=== PATIENT | female | born 1955 | race Caucasian/White ===

== ENCOUNTER → 2020-07-19 13:42 | Outpatient (BNVA) | payer OTHER, SELFPAY | PROVIDERS: PCP Physician Assistant; Visit Provider Internal Medicine ==

== ENCOUNTER 2020-09-14 09:01 | Outpatient (REF) | payer OTHER, SELFPAY ==
[2020-09-14 10:16] LABS: Hematocrit 39.1 % (37-47); Hemoglobin 13.9 g/dl (12.0-16.0); Mean Corpuscular HGB Conc 35.5 g/dl (31.0-35.0); Mean Corpuscular Hemoglobin 33.9 pg (27.0-33.0); Mean Corpuscular Volume 95.4 fL (80-98); Mean Platelet Volume 10.9 fL (9.4-12.3); Platelet Count 136 X10*3/uL (160-400); Red Cell Distribution Width 11.9 % (11.0-16.0); White Blood Count 4.2 X10*3/uL (4.8-10.8)
[2020-09-14 10:29] LABS: Estimated Average Glucose 94 mg/dL; Hemoglobin A1c % 4.9 %
[2020-09-14 10:45] LABS: Alanine Aminotransferase 31 U/L (0-31); Albumin Level 3.7 g/dL (3.5-5.0); Alkaline Phosphatase 102 U/L (39-117); Anion Gap 17 (12-20); Aspartate Amino Transferase 49 U/L (5-31); Bilirubin Total 1.1 mg/dL (0.0-1.0); Blood Urea Nitrogen 12 mg/dL (9-16); Calcium 8.3 mg/dL (8.4-10.2); Carbon Dioxide 22 mmol/L (22-29); Chloride 108 mmol/L (96-108); Cholesterol 168 mg/dL; Estimated Glomerular Filt Rate > 60; Glucose Fasting 123 mg/dL (60-99); HDL Cholesterol 41 mg/dL; LDL Cholesterol Calculated 109 mg/dl; Potassium 3.9 mmol/L (3.3-5.1); Sodium 143 mmol/L (135-145); Total Protein 6.9 g/dL (6.5-8.0); Triglycerides 94 mg/dL
[2020-09-14 11:08] LABS: Thyroid Stimulating Hormone 2.36 uIU/mL (0.32-4.0)
== END 2020-09-14 09:02 | disposition home or self-care (01) ==
LOC: HO.10HDL 09:01
PROVIDERS: Visit Provider Physician Assistant
DX: Z79.899 Other long term (current) drug therapy (principal)
CPT/HCPCS: 36415; 80053; 80061; 83036; 84443; 85027

== ENCOUNTER 2020-12-01 08:36 | Outpatient (REF) | payer OTHER, SELFPAY | END 2020-12-01 08:37 | disposition home or self-care (01) | LOC: HO.HOSX 08:36 | PROVIDERS: Visit Provider Orthopaedic Surgery | DX: Z13.89 Encounter for screening for other disorder (principal) ==

== ENCOUNTER 2021-09-20 10:58 | Outpatient (REF) | payer OTHER, SELFPAY ==
--- NOTE | ~2021-09-20 | XR_ITS ---
EXAMINATION: XR HIP, LEFT CLINICAL INFORMATION: Left hip pain COMPARISON: None TECHNIQUE: Two views of the left hip. FINDINGS: There is no fracture or dislocation. The femoral head articulates appropriately with its acetabulum. Small osteophytes noted. The left hemipelvis is intact. The bowel gas pattern is unremarkable. XR/XR hip LT min 2V IMPRESSION: Mild degenerative change of the left hip.
== END 2021-09-20 10:59 | disposition home or self-care (01) ==
LOC: HO.XRAY 10:58
PROVIDERS: PCP Physician Assistant; Visit Provider Physician Assistant
DX: M25.552 Pain in left hip (principal)
CPT/HCPCS: 73502

== ENCOUNTER 2021-10-03 12:37 | Outpatient (REF) | payer OTHER, SELFPAY ==
--- NOTE | ~2021-10-03 | CT_ITS ---
EXAMINATION: CT CHEST SCREENING CLINICAL INFORMATION: Lung screen. Current smoker with [id number] history. COMPARISON: 01/12/2020. TECHNIQUE: Multidetector volumetric CT imaging of the chest is performed without contrast using low dose technique. Additional 2D coronal and sagittal reformatted images and axial 3D maximum intensity projection (MIP) images are generated on the CT workstation. This CT examination was performed using dose optimization techniques as appropriate, variously including the following: *Automated exposure control *Adjustment of mA and/or kV according to patient size (this includes techniques or standardized protocols for targeted exams where dose is matched to indication/reason for exam; i.e. extremities or head) *Use of iterative reconstruction technique DLP: 61 mGy-cm. FINDINGS: LUNGS: Central airways are patent. There are mild changes of centrilobular emphysema seen. There are some subpleural blebs seen adjacent to the mediastinum in the right upper lobe. There is some mild central bronchial wall thickening present without evidence of bronchiectasis. No confluent parenchymal disease is identified. No suspicious lung nodules identified. MEDIASTINUM: Visualized thyroid gland unremarkable. Heart normal size. Coronary artery calcifications present. No mediastinal or hilar lymphadenopathy. No thoracic aortic aneurysm. No pericardial effusion. PLEURA: There is no pleural effusion. No pleural mass or thickening. AXILLA: No lymphadenopathy. UPPER ABDOMEN: There is cholelithiasis without evidence of acute cholecystitis. OSSEOUS STRUCTURES: No suspicious destructive bony lesions identified. Status post right shoulder surgery. CT/CT lung screening IMPRESSION: No suspicious lung nodules. Coronary artery calcifications. Cholelithiasis without evidence of acute cholecystitis. ASSESSMENT: Lung-RADS category 1: Negative RECOMMENDATION: Routine annual low-dose CT screening in 12 months.
== END 2021-10-03 12:38 | disposition home or self-care (01) ==
LOC: HO.CT 12:37
PROVIDERS: Absent Provider Internal Medicine; PCP Physician Assistant; Visit Provider Physician Assistant Medical
DX: Z12.2 Encounter for screening for malignant neoplasm of respiratory organs (principal); F17.210 Nicotine dependence, cigarettes, uncomplicated
CPT/HCPCS: 71271

== ENCOUNTER → 2021-11-07 10:57 | Outpatient (BNVA) | payer OTHER, SELFPAY | PROVIDERS: PCP Physician Assistant; Visit Provider Internal Medicine | DX: J44.9 Chronic obstructive pulmonary disease, unspecified (principal) ==

== ENCOUNTER → 2021-11-23 10:53 | Outpatient (BNVA) | payer OTHER, SELFPAY | PROVIDERS: PCP Physician Assistant; Visit Provider Orthopaedic Surgery | DX: Z13.89 Encounter for screening for other disorder (principal) ==

== ENCOUNTER 2022-08-24 11:17 | Outpatient (REF) | payer MEDICARE, SELFPAY ==
[2022-08-24 14:42] LABS: Hematocrit 42.1 % (37.0-47.0); Hemoglobin 14.4 g/dl (12.0-16.0); Mean Corpuscular HGB Conc 34.2 g/dl (31.0-35.0); Mean Corpuscular Hemoglobin 34.1 pg (27.0-33.0); Mean Corpuscular Volume 99.8 fL (80.0-98.0); Platelet Count 188 X10*3/uL (160-400); Red Blood Count 4.22 X10*6/uL (4.20-5.50); Red Cell Distribution Width 13.8 % (11.0-16.0); White Blood Count 5.8 X10*3/uL (4.8-10.8)
[2022-08-24 15:09] LABS: Alanine Aminotransferase 25 U/L (0-31); Albumin Level 3.8 g/dL (3.5-5.0); Alkaline Phosphatase 103 U/L (39-117); Anion Gap 16 (12-20); Aspartate Amino Transferase 28 U/L (5-31); Bilirubin Total 0.8 mg/dL (0.0-1.0); Blood Urea Nitrogen 13 mg/dL (9-16); Calcium 8.9 mg/dL (8.4-10.2); Carbon Dioxide 24 mmol/L (22-29); Chloride 103 mmol/L (96-108); Cholesterol 180 mg/dL; Estimated Glomerular Filt Rate 44; Glucose Fasting 136 mg/dL (60-99); HDL Cholesterol 55 mg/dL; LDL Cholesterol Calculated 107 mg/dl; Magnesium 1.8 mg/dL (1.6-2.6); Phosphorus 3.2 mg/dL (2.7-4.5); Sodium 139 mmol/L (135-145); Total Protein 7.1 g/dL (6.5-8.0); Triglycerides 92 mg/dL
[2022-08-24 15:26] LABS: TSH reflex Free T4 2.06 uIU/mL (0.32-4.0)
== END 2022-08-24 11:18 | disposition home or self-care (01) ==
LOC: HO.WFDLDS 11:17
PROVIDERS: Visit Provider Hospitalist
DX: Z00.00 Encounter for general adult medical examination without abnormal findings (principal); K21.9 Gastro-esophageal reflux disease without esophagitis; E66.3 Overweight; I10 Essential (primary) hypertension; E03.9 Hypothyroidism, unspecified
CPT/HCPCS: 36415; 80053; 80061; 83735; 84100; 84443; 85027

== ENCOUNTER → 2022-08-28 13:37 | Outpatient (BNVA) | payer MEDICARE, SELFPAY | PROVIDERS: PCP Hospitalist; Visit Provider Internal Medicine | DX: J44.9 Chronic obstructive pulmonary disease, unspecified (principal); F17.210 Nicotine dependence, cigarettes, uncomplicated | CPT/HCPCS: 99212 ==

== ENCOUNTER → 2022-10-03 13:28 | Outpatient (BNVA) | payer MEDICARE, SELFPAY | PROVIDERS: PCP Hospitalist; Visit Provider Anesthesiology | DX: M47.26 Other spondylosis with radiculopathy, lumbar region (principal); M53.3 Sacrococcygeal disorders, not elsewhere classified; M48.061 Spinal stenosis, lumbar region without neurogenic claudication; M51.36 Other intervertebral disc degeneration, lumbar region; M16.12 Unilateral primary osteoarthritis, left hip; M25.552 Pain in left hip | CPT/HCPCS: 99212 ==

== ENCOUNTER 2022-11-06 06:14 | Outpatient (REF) | payer MEDICARE, SELFPAY ==
--- NOTE | ~2022-11-06 | FL_ITS ---
EXAMINATION: XR FLUOROSCOPY WITH IMAGES CLINICAL INFORMATION: Left hip pain. COMPARISON: 09/20/2021. TECHNIQUE: Fluoroscopy Supervised By: Dr. Kendall Lee. Fluoroscopy Time: 0.2 minutes. Cumulative Dose: 4.91 mGy. DAP: 1.33 Gycm2. Images: 1. FINDINGS: A needle is seen positioned about the superior lateral left hip joint space. Some contrast is seen within the hip joint. FL/FL guidance in treatment room IMPRESSION: Intra-articular injection of the left hip for pain management procedure.
== END 2022-11-06 06:15 | disposition home or self-care (01) ==
LOC: CF 06:14
PROVIDERS: Visit Provider Anesthesiology
DX: M16.12 Unilateral primary osteoarthritis, left hip (principal); M54.16 Radiculopathy, lumbar region; M53.3 Sacrococcygeal disorders, not elsewhere classified
CPT/HCPCS: 20610

== ENCOUNTER 2022-11-16 09:26 | Outpatient (REF) | payer MEDICARE, SELFPAY ==
--- NOTE | ~2022-11-16 | XR_ITS ---
EXAMINATION: XR PELVIS CLINICAL INFORMATION: Hip pain. COMPARISON: None available. TECHNIQUE: AP view of the pelvis. FINDINGS: No fracture no fracture identified. Sacroiliac and hip joints are normal. Pubic symphysis is normal. Degenerative changes of the incidentally visualized lower lumbar spine. Unremarkable appearance of the soft tissues. XR/XR pelvis 1-2V IMPRESSION: Degenerative changes of the incidentally visualized lower lumbar spine. Otherwise unremarkable plain film examination of the pelvis.
== END 2022-11-16 09:27 | disposition home or self-care (01) ==
LOC: HO.HOSX 09:26
PROVIDERS: Visit Provider Orthopaedic Surgery
DX: M54.16 Radiculopathy, lumbar region (principal); M25.551 Pain in right hip; M25.552 Pain in left hip
CPT/HCPCS: 72170; 99212

== ENCOUNTER 2023-01-17 12:07 | Outpatient (REF) | payer MEDICARE, SELFPAY ==
--- NOTE | ~2023-01-17 | CT_ITS ---
EXAMINATION: CT CHEST SCREENING CLINICAL INFORMATION: Lung screening. COMPARISON: CT chest screening 10/03/2021. TECHNIQUE: Multidetector volumetric CT imaging of the chest is performed without contrast using low dose technique. Additional 2D coronal and sagittal reformatted images and axial 3D maximum intensity projection (MIP) images are generated on the CT workstation. This CT examination was performed using dose optimization techniques as appropriate, variously including the following: *Automated exposure control *Adjustment of mA and/or kV according to patient size (this includes techniques or standardized protocols for targeted exams where dose is matched to indication/reason for exam; i.e. extremities or head) *Use of iterative reconstruction technique DLP: 60 mGy-cm FINDINGS: LUNGS: The lungs are clear with no evidence of inflammation or nodules. MEDIASTINUM: There are mild changes of centrilobular emphysema with no acute process. The thyroid lobes are symmetric and normal. The central trachea and the bronchi are widely patent. The heart size and the great vessels are normal caliber. No pericardial effusion seen. No abnormal-sized mediastinal or hilar lymph nodes. CORONARY ARTERY CALCIFICATION: Mild coronary artery calcifications are seen. PLEURA: There is no pleural effusion. No pleural mass or thickening. AXILLA: No lymphadenopathy. UPPER ABDOMEN: Visualized liver, spleen, pancreas and bilateral adrenal glands are unremarkable. OSSEOUS STRUCTURES: Unremarkable. CT/CT lung screening IMPRESSION: Mild emphysema. No pulmonary nodules seen. ASSESSMENT: Lung-RADS category 1: Negative RECOMMENDATION: Low-dose annual CT chest.
== END 2023-01-17 12:08 | disposition home or self-care (01) ==
LOC: HO.CT 12:07
PROVIDERS: PCP Hospitalist; Visit Provider Physician Assistant Medical
DX: Z12.2 Encounter for screening for malignant neoplasm of respiratory organs (principal); F17.210 Nicotine dependence, cigarettes, uncomplicated
CPT/HCPCS: 71271

== ENCOUNTER 2023-03-05 13:14 | Outpatient (AMB) | payer MEDICARE, SELFPAY ==
[2023-03-05 13:28] VITALS: BP 114/72; PULSE 77; O2SAT 97; BMI 30.2
--- NOTE | 2023-03-05 13:28 | A.OFFVIS_ITS ---
Intake Vital Signs 03/05/23 13:28 Height 5 ft 6 in Weight 187 lb BMI 30.2 BP 114/72 Blood Pressure Location Lt brachial Position Sitting Pulse 77 Pulse Source Pulse Oximeter Pulse Oximetry (%) 97 Oxygen Delivery Method Room Air Intake Visit Reasons: copd Intake Note: pt is here for follow up and states she does have some coughing ,wheezing and short of breath. 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: No Allergies codeine Allergy (Unknown, Verified 03/05/23 13:52) Unknown Medication List - Last Reconciled 03/05/23 by Eddie Alvarenga MD albuterol sulfate 90 mcg/actuation 2 puffs PO Q4-6H PRN atenolol 50 mg PO BID 90 days bupropion HCl 200 mg PO QAM 90 days fluticasone propion-salmeterol 250-50 mcg/dose (Wixela Inhub) 1 ea PO BID fluticasone propionate 50 mcg/actuation (Flonase Allergy Relief) 2 sprays intranasal DAILY 30 days gabapentin 600 mg PO BID levothyroxine 50 mcg PO DAILY 90 days losartan-hydrochlorothiazide 100-12.5 mg 1 tab PO DAILY 90 days omeprazole 20 mg PO BID sertraline 100 mg PO DAILY Do you need a note to return to daycare/school/sports/work: No HPI copd HPI Details FARZANA IS HERE FOR HER 6 MONTHS FOLLOW-UP FOR HER COPD. BREATHING HAS REMAINED STABLE EXCEPT FOR INCREASED COUGH OFF AND ON, WITH SOME MUCUS. SHE HAS HARD TIME IN WALKING AROUND MAINLY BECAUSE OF HER BACK PAIN AND RADICULITIS. STILL SMOKES ABOUT A FEW CIGARETTES EVERY DAY. USES ADVAIR 250-51 INHALATION B.I.D., HAS HAD NO ACUTE EXACERBATION OF HER COPD. MOST OF THE CONVERSATION TODAY WAS RELATED TO HER BACK PAIN LEG PAIN AND NUMB FEELING IN THE LEG. PFSH Medical History Rhinitis Hypothyroidism Anxiety Tachycardia Cough COPD (chronic obstructive pulmonary disease) Smoker Social History Housing: House Patient Tobacco Use Status: Current everyday Tobacco user Cigarette Packs Per Day: 0 Cigarettes Per Day: 2 e-Cigarette/Vaping Use: Never Used Current occupational status: retired Current occupation: right handed, retired Review of Systems Const All systems reviewed & are unremarkable except as noted in HPI and below ENT Reports nasal congestion (mild intermittent ) Card Denies chest pain, Reports rapid heart rate and Reports dyspnea (on doing physical work ) Resp Reports cough (mild off and on ) and Reports dyspnea (on doing physical work ) GI Reports heartburn (Controlled with diet and med) Reports no additional complaints Musc Reports myalgias Skin/Breast Reports system reviewed and no additional complaints, except as documented Neuro Reports no additional complaints Psych Reports no additional complaints and Reports anxiety Physical Exam Vital Signs: Last Vital Signs Pulse 77 03/05/23 13:28 BP 114/72 03/05/23 13:28 Pulse Ox 97 03/05/23 13:28 Oxygen Delivery Method Room Air 03/05/23 13:28 BMI result Body Mass Index 30.2 Const General: healthy appearing, comfortable, no acute distress, alert and awake Orientation/consciousness: patient oriented x3 HEENT Head: Yes normal to inspection General nose exam: No nasal polyps present and No nasal discharge present Face and sinus: Yes sinuses nontender Mouth: oropharynx normal Throat: Yes posterior oropharynx normal Eyes General: appearance normal, both eyes and all related structures Neck Neck: Yes normal visual inspection, Yes no lymphadenopathy, Yes trachea midline and Yes no JVD Thyroid: Thyroid normal Chest Chest palpation & inspection: normal inspection of the chest, normal palpation of entire chest wall and no tenderness Resp Effort & Inspection: prolonged expiratory phase Auscultation: no crackles, no rhonchi, no wheezes and diminished lung sounds (With prolonged expiratory phase) Cardio Palpation: normal PMI Rate: regular rate and tachycardic Rhythm: regular rhythm Heart sounds: no gallops and no murmurs Peripheral pulses: Peripheral pulses 2+ throughout GI Palpation (GI): Soft to palpation, nontender, No hepatosplenomegaly present and no masses Auscultation: normal bowel sounds Back/Spine/Pelvis Thoracic/Lumbar Spine: thoracic and lumbar spine normal to inspection Skin General skin exam: no rashes or lesions noted Neuro General: patient oriented x3 and no focal motor deficits Cranial nerves: Yes CN's II-XII intact bilaterally Extrem General: Yes normal to inspection, Yes no clubbing, cyanosis or edema, Yes no calf tenderness and No venous stasis dermatitis Psych Appearance: grossly normal and well kempt Speech and movement: Normal speech and movement present Assessment & Plan Assessment & Plan (1) Smoker: Comment: Lifelong smoker, currently smoking only 2-5 cigarettes a day. It is difficult for her to cut it below this level. CT scan of the chest in September 2021, negative, She is in the lung screening program. Code(s): F17.200 - Nicotine dependence, unspecified, uncomplicated (2) COPD (chronic obstructive pulmonary disease): Comment: COPD is remaining stable. There is no shortness of breath or wheezing at rest. She uses Advair 250-50 1 inhalation b.i.d. but only if she has any bouts of wheezing or cough. Code(s): J44.9 - Chronic obstructive pulmonary disease, unspecified (3) Rhinitis: Comment: Chronic nasal congestion, secondary to vasomotor vs allergic rhinitis. [place] : Flonase nasal spray 2 spray each nostril daily. Code(s): J31.0 - Chronic rhinitis Coding Level of Care Code Est Pt Level 3 (11258) Diagnoses Smoker F17.200 COPD (chronic obstructive pulmonary disease) J44.9 Rhinitis J31.0
== END 2023-03-05 14:10 | disposition home or self-care (01) ==
PROVIDERS: PCP Hospitalist; Visit Provider Internal Medicine
DX: F17.200 Nicotine dependence, unspecified, uncomplicated (principal); J44.9 Chronic obstructive pulmonary disease, unspecified; J31.0 Chronic rhinitis
CPT/HCPCS: 99213

== ENCOUNTER → 2023-03-05 13:14 | Outpatient (BNVA) | payer MEDICARE, SELFPAY | PROVIDERS: PCP Hospitalist; Visit Provider Internal Medicine | DX: J44.9 Chronic obstructive pulmonary disease, unspecified (principal); J31.0 Chronic rhinitis; F17.210 Nicotine dependence, cigarettes, uncomplicated | CPT/HCPCS: 99212 ==

== ENCOUNTER 2023-06-12 11:21 | Outpatient (AMB) | payer MEDICARE, SELFPAY ==
--- NOTE | 2023-06-12 12:37 | AM.OFFWIN_ITS ---
Intake Vital Signs 06/12/23 12:49 06/12/23 13:00 Height 5 ft 6 in Weight 187 lb 2 oz BMI 30.2 BP 170/90 H 170/82 H Blood Pressure Location Lt brachial Lt brachial Position Sitting Pulse 66 Pulse Source Pulse Oximeter Pulse Oximetry (%) 98 Oxygen Delivery Method Room Air Intake Visit Reasons: Elev bp Intake Note: Patient is here today for elevated BP. 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 Required: No Rn Pain Management: Not Required per policy Accompanied by: Self / Same As Patient Allergies codeine Allergy (Unknown, Verified 06/12/23 12:49) Unknown Medication List - Last Reconciled 06/12/23 by Blank Rodriguez, MILK DRYING MACHINE OPERATOR-BC albuterol sulfate 90 mcg/actuation 2 puffs PO Q4-6H PRN atenolol 50 mg PO BID 90 days bupropion HCl 200 mg PO QAM 90 days fluticasone propion-salmeterol 250-50 mcg/dose 1 ea PO BID fluticasone propionate 50 mcg/actuation (Flonase Allergy Relief) 2 sprays intranasal DAILY 30 days gabapentin 600 mg PO BID levothyroxine 50 mcg PO DAILY 90 days losartan-hydrochlorothiazide 100-12.5 mg 1 tab PO DAILY 90 days nicotine 1 patch transdermal Q24H 28 days omeprazole 20 mg PO BID sertraline 100 mg PO DAILY Do you need a note to return to daycare/school/sports/work: No HPI HPI Comments History of Present Illness Details here today c/o HTN was monitoring at home previously but BP normalized on current meds however recently went to endovasc doc and noted SBP > 200 has a femoral blockage on L will be undergoing a stent and add'l work up since this time, has been checking BP at home log reviewed SBP 190-220 DBP 77-102 denies cardiac or neuro complaints PFSH Medical History Rhinitis Hypothyroidism Anxiety Tachycardia Cough COPD (chronic obstructive pulmonary disease) Smoker Social History Housing: House Patient Tobacco Use Status: Current everyday Tobacco user Cigarette Packs Per Day: 0 Cigarettes Per Day: 2 e-Cigarette/Vaping Use: Never Used Current occupational status: retired Current occupation: right handed, retired Review of Systems Const All systems reviewed & are unremarkable except as noted in HPI and below Physical Exam Vital Signs: Last Vital Signs Pulse 66 06/12/23 12:49 BP 170/90 H 06/12/23 12:49 Pulse Ox 98 06/12/23 12:49 Oxygen Delivery Method Room Air 06/12/23 12:49 BMI result Body Mass Index 30.2 Const Other: awake alert NAD MMM RRR LS with ins/exp wheeze throughout, diminished Assessment & Plan Assessment & Plan (1) HTN (hypertension): Code(s): I10 - Essential (primary) hypertension Qualifiers: Hypertension type: unspecified Qualified Code(s): I10 - Essential (primary) hypertension (2) CKD (chronic kidney disease) stage 3, GFR 30-59 ml/min: Comment: 08/2022 gfr 44 cr 1.23 Code(s): N18.30 - Chronic kidney disease, stage 3 unspecified Qualifiers: Chronic kidney disease stage 3 subtype: stage 3b (GFR 30-44) Qualified Code(s): N18.32 - Chronic kidney disease, stage 3b Plan: . Plan . Orders: Orders Comprehensive Met. Panel 06/12/23 I10 - Essential (primary) hypertension, N18.30 - Chronic kidney disease, stage 3 unspecified Medications: New amlodipine 5 mg PO DAILY 30 days 30 tabs 1RF Patient Instructions: given elevated bp and last labs 08/2022, will start CCB norvasc 5 mg QD. She should cont all of her other meds as ordered and get up to date labs to look at renal function and lytes. Aware norvasc should be taken at HS and may cause edema. Edu on what to do if this occurs. Monitor BP QD and keep log. RTO as directed to f/u on labs and BP. Coding Level of Care Code Est Pt Level 4 (33053) Diagnoses Hypertension, unspecified type I10 Hypertension type: unspecified Stage 3b chronic kidney disease N18.32 Chronic kidney disease stage 3 subtype: stage 3b (GFR 30-44)
[2023-06-12 12:49] VITALS: BP 170/90; PULSE 66; O2SAT 98; BMI 30.2
[2023-06-12 13:00] VITALS: BP 170/82
== END 2023-06-12 13:46 | disposition home or self-care (01) ==
PROVIDERS: PCP Hospitalist; Visit Provider Nurse Practitioner Family
DX: I12.9 Hypertensive chronic kidney disease with stage 1 through stage 4 chronic kidney disease, or unspecified chronic kidney disease (principal); N18.32 Chronic kidney disease, stage 3b
CPT/HCPCS: 99214

== ENCOUNTER 2023-07-11 12:07 | Outpatient (REF) | payer MEDICARE, SELFPAY ==
[2023-07-11 13:55] LABS: Alanine Aminotransferase 19 U/L (0-31); Albumin Level 3.9 g/dL (3.5-5.0); Alkaline Phosphatase 100 U/L (39-117); Anion Gap 15 (12-20); Aspartate Amino Transferase 26 U/L (5-31); Bilirubin Total 0.6 mg/dL (0.0-1.0); Blood Urea Nitrogen 21 mg/dL (9-16); Calcium 9.2 mg/dL (8.4-10.2); Carbon Dioxide 27 mmol/L (22-29); Chloride 97 mmol/L (96-108); Estimated Glomerular Filt Rate 32; Glucose Random 126 mg/dL (60-115); Sodium 135 mmol/L (135-145); Total Protein 7.4 g/dL (6.5-8.0)
== END 2023-07-11 12:08 | disposition home or self-care (01) ==
LOC: HO.LAB 12:07
PROVIDERS: PCP Nurse Practitioner Family; Referring Provider Radiology Vascular & Interventional Radiology; Visit Provider Nurse Practitioner Family
DX: I10 Essential (primary) hypertension (principal); N18.30 Chronic kidney disease, stage 3 unspecified
CPT/HCPCS: 36415; 80053

== ENCOUNTER 2023-07-16 12:23 | Outpatient (AMB) | payer MEDICARE, SELFPAY ==
--- NOTE | 2023-07-16 10:19 | A.OFFPC_ITS ---
Vital Signs 07/16/23 12:33 Height 5 ft 6 in Weight 186 lb BMI 30.0 BP 144/72 H Blood Pressure Location Rt brachial Pulse 72 Pulse Source Pulse Oximeter Pulse Oximetry (%) 99 Oxygen Delivery Method Room Air Intake Visit Reasons: MISAEL from [facility] labs and HTN Intake Note: Patient is here as a transfer of care, and would like blood work done for [facility]. Patient would like lower right leg looked at, she has a spot. Allergies codeine Allergy (Unknown, Verified 07/16/23 12:57) Unknown Medication List - Last Reconciled 07/16/23 by Blank Rodriguez, TRANSFORMATION CONSULTANT-BC albuterol sulfate 90 mcg/actuation 2 puffs PO Q4-6H PRN amlodipine 5 mg PO DAILY 30 days atenolol 50 mg PO BID 90 days bupropion HCl 200 mg PO QAM 90 days fluticasone propion-salmeterol 250-50 mcg/dose 1 ea PO BID fluticasone propionate 50 mcg/actuation (Flonase Allergy Relief) 2 sprays intranasal DAILY 30 days gabapentin 600 mg PO BID levothyroxine 50 mcg PO DAILY 90 days losartan-hydrochlorothiazide 100-12.5 mg 1 tab PO DAILY 90 days nicotine 1 patch transdermal Q24H 28 days omeprazole 20 mg PO BID sertraline 100 mg PO DAILY Tobacco use date assessed: 07/16/23 Fall risk assessment: No Falls in past year Last assessed Fall Risk: 07/16/23 Dental Screening Dental Screen Date: 07/16/23 Did you have a dental visit in the last 12 months?: Yes Did you have a dental problem in the last 6 months where you did not have access to dental care?: No Was dental information given to patient?: Patient has dentist HPI HPI Comments History of Present Illness Details Here today to follow-up on hypertension & to review labs ordered at last visit. At last visit Norvasc was added to her regimen. Advised to take blood pressure daily and keep a log. Labs from 07/11/2023 show a BUN of 21 creatinine of 1.63 GFR of 32. Normal lytes, normal LFTs. Home blood pressure log reviewed. SBP range 142 - 204 space DBP range 77 to 102. Stent to be placed L femoral on 07/22/[address] Taj [facility]. requesting most recent labs to be faxed. We will have the office after that today. Patient makes a mention potential stent to be placed in the right leg as well. However she has not sure. Also wonders about a skin lesion that she has on her right lower leg. Reports it has been there for a long time and just wonders if anything needs to be done about it. PFSH Medical History Rhinitis Hypothyroidism Anxiety Tachycardia Cough COPD (chronic obstructive pulmonary disease) Smoker Social History Housing: House Patient Tobacco Use Status: Current everyday Tobacco user Cigarette Packs Per Day: 0 Cigarettes Per Day: 2 e-Cigarette/Vaping Use: Never Used Current occupational status: retired Current occupation: right handed, retired Cognitive needs: No Hearing needs: No Vision needs: Yes (wears glasses to drive.) Questionnaire PHQ-9 Over the last 2 weeks, how often have you been bothered by any of the following problems? 1. Little interest or pleasure in doing things: not at all 2. Feeling down, depressed, or hopeless: not at all 3. Trouble falling or staying asleep, or sleeping too much: not at all 4. Feeling tired or having little energy: not at all 5. Poor appetite or overeating: not at all 6. Feeling bad about yourself - or that you are a failure or have let yourself or your family down: not at all 7. Trouble concentrating on things, such as reading the newspaper or watching television: not at all 8. Moving or speaking so slowly that other people could have noticed. Or the opposite - being so fidgety or restless that you have been moving around a lot more than usual: not at all 9. Thoughts that you would be better off or of hurting yourself in some way: not at all Total score: 0 Source: Developed by Drs. Jayy Nguyễn, Stephy Coyle, Luis Walker and colleagues, with an educational tino from [employer]. Thrive Questionnaire Date Thrive assessed: 07/16/23 I am a: Patient What is your living situation today?: I have a steady place to live Within the past 12 months, did the food you bought not last and you didn't have the money to get more?: Never true Within the past 12 months, did you worry whether your food would run out before you got money to buy more?: Never true Do you have trouble paying for medicines?: No Do you have trouble getting transportation to medical appointments?: No Do you have trouble paying your heating and electricity bill?: No Do you have trouble taking care of your child, family member or friend?: No Do you have trouble with day-to-day activities such as bathing, preparing meals, shopping, managing finances, etc.?: No Are you currently unemployed and looking for a job?: No Are you interested in more education?: No THRIVE Score: 0 AUDIT C Alcohol Use Questionnaire (AUDIT-C) 1. How often do you have a drink containing alcohol?: 4 or more times a week 2. How many drinks containing alcohol do you have on a typical day when you are drinking?: 1 or 2 3. How often do you have six or more drinks on one occasion?: Never Total Score: 4 DRE-7 AMB Questionnaire DRE-7 Date DRE - 7 assessed: 07/16/23 Feeling nervous, anxious, or on edge: 0 = Not at all Not being able to stop or control worryin = Not at all Worrying too much about different things: 0 = Not at all Trouble relaxin = Not at all Being so restless that it is hard to sit still: 0 = Not at all Becoming easily annoyed or irritable: 0 = Not at all Feeling afraid as if something awful might happen: 0 = Not at all Total DRE-7 score (0-4 normal; 5-9 mild; 10-14 moderate; 15-21 severe): 0 Source: Developed by Drs. Jayy Nguyễn, Stephy Coyle, Luis Walker and colleagues, with an educational tino from [employer]. Review of Systems Const All systems reviewed & are unremarkable except as noted in HPI and below Physical exam (Primary Care) BMI result Body Mass Index 30.0 Tobacco/Smoking Status: Tobacco use Status Tobacco use date assessed 07/16/23 07/16/23 12:39 Patient Tobacco Use Status Current everyday Tobacco 07/16/23 10:19 e-Cigarette/Vaping Use Never Used 07/16/23 10:19 Const Other: awake alert NAD MMM RRR LS diminished Bilateral lower extremities hairless, decreased pedal pulse. Right anterior lower leg is a cutaneous horn. Assessment and Plan Assessment & Plan (1) CKD (chronic kidney disease) stage 3, GFR 30-59 ml/min: Comment: 08/2022 gfr 44 cr 1.23; 07/11/23 Bun 21 cr 1.63 egfr 32 stable avoid nephrotoxic agents. Code(s): N18.30 - Chronic kidney disease, stage 3 unspecified Qualifiers: Chronic kidney disease stage 3 subtype: stage 3b (GFR 30-44) Qualified Code(s): N18.32 - Chronic kidney disease, stage 3b (2) HTN (hypertension): Code(s): I10 - Essential (primary) hypertension Qualifiers: Hypertension type: unspecified Qualified Code(s): I10 - Essential (primary) hypertension Plan: Improved with addition of Norvasc 5 mg. However readings still above goal. Therefore we will increase amlodipine dose 7.5 mg p.o. q.h.s.. She should continue to monitor blood pressure and bring log with her to future appointments (3) Skin lesion of lower extremity: Comment: Right lower extremity, cutaneous horn Code(s): L98.9 - Disorder of the skin and subcutaneous tissue, unspecified Plan: Refer to dermatology for evaluation and treatment advised him to pick her pull the lesion (4) Atherosclerosis of lower extremity: Comment: [facility] BUSH Code(s): I70.209 - Unspecified atherosclerosis of sh[place]nee arteries of extremities, unspecified extremity Qualifiers: Peripheral atherosclerosis artery type: shawnee artery Peripheral atherosclerosis clinical manifestation: with intermittent claudication Laterality: bilateral Qualified Code(s): I70.213 - Atherosclerosis of sh[place]nee arteries of extremities with intermittent claudication, bilateral legs Plan: Will be undergoing stent placement 07/22/23 to Left Femoral asked staff to fax 07/11/23 labs to office and to have staff call and let her know if she is having bilat stents or just left side i will see her back in august for routine f/u Plan Total time spent caring for the patient today was 60 minutes. This includes eric e spent before the visit reviewing the chart, time spent during the visit, and time spent after the visit on documentation Orders: Referrals Dermatology Referral L98.9 - Disorder of the skin and subcutaneous tissue, unspecified Medications: Changed From amlodipine 5 mg PO DAILY 30 days 30 tabs 1RF To amlodipine 7.5 mg (1.5 x 5 mg) PO DAILY 90 days 135 tabs 0RF Refilled amlodipine 5 mg PO DAILY 30 days 30 tabs 1RF Coding Level of Care Code Est Pt Level 5 (07575) Diagnoses Stage 3b chronic kidney disease N18.32 Chronic kidney disease stage 3 subtype: stage 3b (GFR 30-44) Hypertension, unspecified type I10 Hypertension type: unspecified Skin lesion of lower extremity L98.9 Atherosclerosis of shawnee artery of both lower extremities with intermittent cl audication I70.213 Peripheral atherosclerosis artery type: shawnee artery Peripheral atherosclerosis clinical manifestation: with intermittent claudication Laterality: bilateral
[2023-07-16 12:33] VITALS: BP 144/72; PULSE 72; O2SAT 99
== END 2023-07-16 13:14 | disposition home or self-care (01) ==
PROVIDERS: PCP Hospitalist; Visit Provider Nurse Practitioner Family
DX: I12.9 Hypertensive chronic kidney disease with stage 1 through stage 4 chronic kidney disease, or unspecified chronic kidney disease (principal); N18.32 Chronic kidney disease, stage 3b; I70.213 Atherosclerosis of native arteries of extremities with intermittent claudication, bilateral legs; L98.9 Disorder of the skin and subcutaneous tissue, unspecified
CPT/HCPCS: 99215

== ENCOUNTER 2023-08-27 12:23 | Outpatient (AMB) | payer MEDICARE, SELFPAY ==
--- NOTE | 2023-08-27 12:32 | MHC.PC.OV ---
Vital Signs 08/27/23 12:50 Height 5 ft 6 in Weight 187 lb BMI 30.2 BP 172/70 H Blood Pressure Location Lt brachial Position Sitting Respiration 15 Pulse 64 Pulse Source Pulse Oximeter Temp 97.0 F Temp Source Temporal Artery Scan Pulse Oximetry (%) 100 Oxygen Delivery Method Room Air Intake Visit Reasons: Chronic condition mgmt Intake Note: Patient is here fro chronic condition management. Patient reports her blood pressure has been elevated. Patient reports she brought in a BP log from home. Dental Technologist Required: No Accompanied by: Self / Same As Patient Allergies codeine Allergy (Unknown, Verified 08/27/23 13:07) Unknown Medication List - Last Reconciled 08/27/23 by Blank Rodriguez, BULK MAIL TECHNICIAN- albuterol sulfate 90 mcg/actuation 2 puffs PO Q4-6H PRN amlodipine 7.5 mg (1.5 x 5 mg) PO DAILY 90 days atenolol 50 mg PO BID 90 days bupropion HCl 200 mg PO QAM fluticasone propion-salmeterol 250-50 mcg/dose 1 ea PO BID fluticasone propionate 50 mcg/actuation (Flonase Allergy Relief) 2 sprays intranasal DAILY 30 days gabapentin 600 mg PO BID levothyroxine 50 mcg PO DAILY losartan-hydrochlorothiazide 100-12.5 mg 1 tab PO DAILY nicotine 1 patch transdermal Q24H 28 days omeprazole 20 mg PO BID rivaroxaban (Xarelto) 2.5 mg PO BID sertraline 100 mg PO DAILY Tobacco use date assessed: 07/16/23 HPI HPI Comments History of Present Illness Details 68-year-old female with CKD 3 B, hypertension, arthrosclerosis bilat lower extremities with claudication,CAD, severe plaque within the abdominal aorta beginning at the level of the SMA extending across the origin the left main renal artery with severe atrophy of the left kidney, impaired fasting glucose, COPD, GERD, hypothyroidism, current smoker, DRE, MDD, hemochromatosis, multi joint osteoarthritis, allergic rhinitis Status post appendectomy, right shoulder rotator cuff repair 2016, 07/2023 stenting of the mid abdominal aorta and both common iliac arteries as well as the left external iliac artery with arthrectomy and angioplasty of the left common femoral artery 08/09/2021 Dr Ruy Mooney [facility] Vascular Pulmonology next appt in 1 week Rheumatology Orthopedics Pain management Health maintenance Colonoscopy 2016 declined. Mammogram declined DEXA reports done once, declined further screening. Lung cancer screening program CT scan September 2021, 12/2022 Eyes reports recent eye exam done and report WNL Here today to f/u on chronic conditions, listed above. Since last visit underwent vascular procedures, next appt is Saturday. Now Xarelto and ASA. She has not currently on a statin. She is okay with starting BP cont to be high. Home log reviewed. not sleeping. takes aleve pm. worried about taking this w/ aleve. Use Ativan sparingly in the past. aware of L renal atrophy. Has not smoked in 1 week. Started on 21mcg/patch. Reports she used to get phlebotomy done for her hemochromatosis. However she did syncopized during 1 of these and therefore declined to follow-up. She is willing to have further labs managed by myself. 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 Arthritis of left hip Disc degeneration, lumbar Lumbar facet arthropathy Stenosis, spinal, lumbar Sacroiliac joint pain Lumbar radicular pain Rhinitis Hypothyroidism Anxiety Tachycardia Cough COPD (chronic obstructive pulmonary disease) Smoker Surgical History (Updated 08/27/23 @ 12:54 by Ashlyn Simon CMA) No pertinent past surgical history Social History (Updated 08/27/23 @ 12:56 by Ashlyn Simon CMA) Household Members: Children Household Members Other:: daughter Housing: House Are you a primary acute care physical therapist to a significant other at home: No Do you presently have visiting nurse or other home services: No 75 years or older and lives alone: No Alcohol intake: current Alcohol intake frequency: holidays/special occasions only Alcohol type: beer Patient Tobacco Use Status: Former Tobacco user Tobacco use type: Cigarette Cigarette Packs Per Day: 0 Cigarettes Per Day: 2 e-Cigarette/Vaping Use: Never Used Current occupational status: retired Current occupation: right handed, retired Sexual orientation: Unable to collect Gender identity: Unable to collect Cognitive needs: No Hearing needs: No Vision needs: Yes (wears glasses to drive.) Questionnaire Thrive Questionnaire Date Thrive assessed: 07/16/23 DRE-7 AMB Questionnaire DRE-7 Date DRE - 7 assessed: 07/16/23 Source: Developed by Drs. Jayy L. Stephy Nguyễn, Luis Walker and colleagues, with an educational tino from [employer]. Physical exam (Primary Care) Vital Signs: Last Vital Signs Temp 97.0 F 08/27/23 12:50 Pulse 64 08/27/23 12:50 Resp 15 08/27/23 12:50 BP 172/70 H 08/27/23 12:50 Pulse Ox 100 08/27/23 12:50 Oxygen Delivery Method Room Air 08/27/23 12:50 BMI result Body Mass Index 30.2 BMI Assessment/Plan discussion: High BMI High, discussed plan: lifestyle Tobacco/Smoking Status: Tobacco use Status Tobacco use date assessed 07/16/23 08/27/23 12:32 Patient Tobacco Use Status Former Tobacco user 08/27/23 12:56 Tobacco use type Cigarette 08/27/23 12:56 e-Cigarette/Vaping Use Never Used 08/27/23 12:56 Are you ready to quit: No Tobacco cessation counseling provided: Yes Items discussed: Other Relapse Prevention: discussed the importance of a supportive environment, discussed extending NRT, discussed negative mood or depression after quitting, weight gain after smoking is common and discussed dietary, exercise and/or lifestyle changes Number of minutes spent counselin CPT code: 18497 - 4-10 Minutes Thrive Assessment: Date of Thrive Assessment Date Thrive assessed 07/16/23 08/27/23 12:32 Advance Care Planning discussion: Exists, not on file Date of discussion: 08/27/23 Const Other: awake alert NAD MMM RRR LS diminished Bilateral lower extremities hairless, decreased pedal pulse. Right anterior lower leg is a cutaneous horn. Assessment and Plan Assessment & Plan (1) CAD (coronary artery disease), [place] coronary artery: Comment: on ASA. New RX for rosuvastatin 10mg prescribed today. Repeat lipid panel due 09/2023. Smoking cessation Code(s): I25.10 - Atherosclerotic heart disease of [place] coronary artery without angina pectoris Qualifiers: [place] vs. transplanted heart: wainwright heart Associated angina: without angina Qualified Code(s): I25.10 - Atherosclerotic heart disease of [place] coronary artery without angina pectoris (2) Hemochromatosis: Comment: Was active with Hematology in the past for phlebotomy. Unfortunately she syncopized during the last 1. And has refused to go back since. We will check labs in September of 2023 Code(s): E83.119 - Hemochromatosis, unspecified Qualifiers: Hemochromatosis type: other hemochromatosis Qualified Code(s): E83.118 - Other hemochromatosis (3) MDD (major depressive disorder), recurrent episode: Comment: Currently on sertraline associated symptoms include insomnia. Was managed with p.r.n. Ativan in the past. Education about the [place] criteria given today. She is willing to entertain clonidine which she will be used to help control her blood pressure until hopefully induce sleep. I will follow up with her in 1-2 weeks to see if this is working for her blood pressure as well as her insomnia Code(s): F33.9 - Major depressive disorder, recurrent, unspecified Qualifiers: Major depression episode severity: mild Qualified Code(s): F33.0 - Major depressive disorder, recurrent, mild (4) CKD (chronic kidney disease) stage 3, GFR 30-59 ml/min: Comment: 08/2022 gfr 44 cr 1.23; 07/11/23 Bun 21 cr 1.63 egfr 32 stable avoid nephrotoxic agents. Atrophic left kidney noted on imaging July 2023 done by vascular Code(s): N18.30 - Chronic kidney disease, stage 3 unspecified Qualifiers: Chronic kidney disease stage 3 subtype: stage 3b (GFR 30-44) Qualified Code(s): N18.32 - Chronic kidney disease, stage 3b (5) COPD (chronic obstructive pulmonary disease): Comment: COPD is remaining stable. There is no shortness of breath or wheezing at rest. She uses Advair 250-50 1 inhalation b.i.d. but only if she has any bouts of wheezing or cough. Managed by pulmonology Code(s): J44.9 - Chronic obstructive pulmonary disease, unspecified Qualifiers: COPD type: emphysema Emphysema type: panlobular Qualified Code(s): J43.1 - Panlobular emphysema (6) Smoker: Comment: Lifelong smoker. Stopped smoking 1 week ago. Using nicotine replacement patch. Applauded her efforts. CT scan of the chest in September 2021, negative, She is in the lung screening program. Code(s): F17.200 - Nicotine dependence, unspecified, uncomplicated (7) HTN (hypertension): Comment: Blood pressure remains above goal on amlodipine 7.5 mg daily, atenolol 50 mg twice per day, losartan-hydrochlorothiazide 100-12.5 mg p.o. daily. The plan will be to start her on clonidine 0.1 mg at bedtime to see if this family helps her blood pressure but also helps her complaints of insomnia. I have advised her to continue to keep a blood pressure log which was reviewed today and shows consistent readings greater than 150 systolic. Bring this log with her to the next appointment which should be scheduled on 1-2 weeks we will titrate the clonidine if she is tolerating this. 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 While every effort has been made to ensure accuracy in tactical/mobile watch officer, still errors may have been included Sometimes, these errors may affect the content or meaning of the given sentence . Total time spent caring for the patient today was 60 minutes. This includes time spent before the visit reviewing the chart, time spent during the visit, and time spent after the visit on documentation Medications: New clonidine HCl 0.1 mg PO BEDTIME 30 tabs 0RF aspirin (Adult Low Dose Aspirin) 81 mg PO DAILY 30 tabs 0RF rosuvastatin 10 mg PO DAILY 30 tabs 3RF Patient Instructions: No NSAIDS Review Declined Pap Smear: 08/27/23 Patient declined Colonoscopy: 08/27/23 Coding Level of Care Code Est Pt Level 5 (05703) Diagnoses Coronary artery disease involving wain[place] coronary artery of w[place] heart without angina pectoris I25.10 [place] vs. 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
[2023-08-27 12:50] VITALS: BP 172/70; PULSE 64; RESP 15; TEMP 36.1; O2SAT 100; BMI 30.2
== END 2023-08-27 13:46 | disposition home or self-care (01) ==
PROVIDERS: PCP Nurse Practitioner Family; Visit Provider Nurse Practitioner Family
DX: I12.9 Hypertensive chronic kidney disease with stage 1 through stage 4 chronic kidney disease, or unspecified chronic kidney disease (principal); F33.0 Major depressive disorder, recurrent, mild; N18.32 Chronic kidney disease, stage 3b; J43.1 Panlobular emphysema; I70.203 Unspecified atherosclerosis of native arteries of extremities, bilateral legs; I25.10 Atherosclerotic heart disease of native coronary artery without angina pectoris; E83.118 Other hemochromatosis; F17.200 Nicotine dependence, unspecified, uncomplicated; Z00.00 Encounter for general adult medical examination without abnormal findings
CPT/HCPCS: 1123F; 99215

== ENCOUNTER 2023-09-03 13:02 | Outpatient (AMB) | payer MEDICARE, SELFPAY ==
--- NOTE | 2023-09-03 13:11 | MHC.OFFVIS ---
Intake Vital Signs 09/03/23 13:12 Height 5 ft 6 in BP 110/82 Blood Pressure Location Lt brachial Position Sitting Pulse 70 Pulse Source Pulse Oximeter Pulse Oximetry (%) 100 Oxygen Delivery Method Room Air Intake Visit Reasons: copd Intake Note: pt is here for follow up and states her breathing is doing good, had major vascular surgery. and is feeling better. Superintendent Circus Required: No Allergies codeine Allergy (Unknown, Verified 09/03/23 13:31) Unknown Medication List - Last Reconciled 09/03/23 by Eddie Alvarenga MD albuterol sulfate 90 mcg/actuation 2 puffs PO Q4-6H PRN amlodipine 7.5 mg (1.5 x 5 mg) PO DAILY 90 days aspirin (Adult Low Dose Aspirin) 81 mg PO DAILY atenolol 50 mg PO BID 90 days bupropion HCl 200 mg PO QAM clonidine HCl 0.1 mg PO BEDTIME fluticasone propion-salmeterol 250-50 mcg/dose 1 ea PO BID fluticasone propionate 50 mcg/actuation (Flonase Allergy Relief) 2 sprays intranasal DAILY 30 days gabapentin 600 mg PO BID levothyroxine 50 mcg PO DAILY losartan-hydrochlorothiazide 100-12.5 mg 1 tab PO DAILY nicotine 1 patch transdermal Q24H 28 days omeprazole 20 mg PO BID rivaroxaban (Xarelto) 2.5 mg PO BID rosuvastatin 10 mg PO DAILY sertraline 100 mg PO DAILY Do you need a note to return to daycare/school/sports/work: No HPI copd HPI Details Myrtle is 68 years old female a lifelong smoker, who has finally quit smoking since a few months ago and already feeling. much better She has very little cough, no attacks of wheezing, she can walk a few blocks without getting short of breath. Now she is realizing that it was worth quitting smoking. She has had back. Surgery for advanced degenerative arthritis of the spine In July of this year she underwent endovascular surgery and had a stent placed in the descending aorta and also in both iliac arteries. She does not have any intermittent claudication anymore and she can walk better. Now she plans to start walking daily. 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 Arthritis of left hip Disc degeneration, lumbar Lumbar facet arthropathy Stenosis, spinal, lumbar Sacroiliac joint pain Lumbar radicular pain Rhinitis Hypothyroidism Anxiety Tachycardia Cough COPD (chronic obstructive pulmonary disease) Smoker Surgical History No pertinent past surgical history Social History Household Members: Children Household Members Other:: daughter Housing: House Are you a primary transitional care liaison to a significant other at home: No Do you presently have visiting nurse or other home services: No 75 years or older and lives alone: No Alcohol intake: current Alcohol intake frequency: holidays/special occasions only Alcohol type: beer Patient Tobacco Use Status: Former Tobacco user Tobacco use type: Cigarette Cigarette Packs Per Day: 0 Cigarettes Per Day: 2 e-Cigarette/Vaping Use: Never Used Current occupational status: retired Current occupation: right handed, retired Sexual orientation: Unable to collect Gender identity: Unable to collect Cognitive needs: No Hearing needs: No Vision needs: Yes (wears glasses to drive.) Review of Systems Const All systems reviewed & are unremarkable except as noted in HPI and below ENT Reports nasal congestion (mild intermittent ) Card Denies chest pain, Reports rapid heart rate and Reports dyspnea (on doing physical work ) Resp Reports cough (mild off and on ) and Reports dyspnea (on doing physical work ) GI Reports heartburn (Controlled with diet and med) Reports no additional complaints Musc Reports myalgias Skin/Breast Reports system reviewed and no additional complaints, except as documented Neuro Reports no additional complaints Psych Reports no additional complaints and Reports anxiety Physical Exam Vital Signs: Last Vital Signs Pulse 70 09/03/23 13:12 BP 110/82 09/03/23 13:12 Pulse Ox 100 09/03/23 13:12 Oxygen Delivery Method Room Air 09/03/23 13:12 Const General: healthy appearing, comfortable, no acute distress, alert and awake Orientation/consciousness: patient oriented x3 HEENT Head: Yes normal to inspection General nose exam: No nasal polyps present and No nasal discharge present Face and sinus: Yes sinuses nontender Mouth: oropharynx normal Throat: Yes posterior oropharynx normal Eyes General: appearance normal, both eyes and all related structures Neck Neck: Yes normal visual inspection, Yes no lymphadenopathy, Yes trachea midline and Yes no JVD Thyroid: Thyroid normal Chest Chest palpation & inspection: normal inspection of the chest, normal palpation of entire chest wall and no tenderness Resp Effort & Inspection: prolonged expiratory phase Auscultation: no crackles, no rhonchi, no wheezes and diminished lung sounds (With prolonged expiratory phase) Cardio Palpation: normal PMI Rate: regular rate and tachycardic Rhythm: regular rhythm Heart sounds: no gallops and no murmurs Peripheral pulses: Peripheral pulses 2+ throughout GI Palpation (GI): Soft to palpation, nontender, No hepatosplenomegaly present and no masses Auscultation: normal bowel sounds Back/Spine/Pelvis Thoracic/Lumbar Spine: thoracic and lumbar spine normal to inspection Skin General skin exam: no rashes or lesions noted Neuro General: patient oriented x3 and no focal motor deficits Cranial nerves: Yes CN's II-XII intact bilaterally Extrem General: Yes normal to inspection, Yes no clubbing, cyanosis or edema, Yes no calf tenderness and No venous stasis dermatitis Psych Appearance: grossly normal and well kempt Speech and movement: Normal speech and movement present Assessment & Plan Assessment & Plan (1) Smoker: Comment: Lifelong smoker. Stopped smoking since last year, and already feeling better. CT scan of the chest in September 2021, negative, She is in the lung screening program. Code(s): F17.200 - Nicotine dependence, unspecified, uncomplicated Plan: Commended for quitting smoking completely and for ever. (2) COPD (chronic obstructive pulmonary disease): Comment: COPD is remaining stable. There is no shortness of breath or wheezing at rest. Breathing status is much improved since she quit smoking . Code(s): J44.9 - Chronic obstructive pulmonary disease, unspecified Qualifiers: COPD type: emphysema Emphysema type: panlobular Qualified Code(s): J43.1 - Panlobular emphysema Plan: Continue Advair 250-51 inhalation b.i.d.. And use albuterol HFA only p.r.n. for sustained cough wheezing or shortness of breath. (3) Cough: Comment: Smoker's cough, and also associated with COPD, mild , does not need script for any cough medicine. Code(s): R05 - Cough Plan: She had history of frequent, cough for long time this was definitely related to smoking. Now that she has quit smoking , cough is almost gone Coding Level of Care Code Est Pt Level 3 (40652) Diagnoses Smoker F17.200 Panlobular emphysema J43.1 COPD type: emphysema Emphysema type: panlobular Cough R05
[2023-09-03 13:12] VITALS: BP 110/82; PULSE 70; O2SAT 100
== END 2023-09-03 13:33 | disposition home or self-care (01) ==
PROVIDERS: PCP Hospitalist; Visit Provider Internal Medicine
DX: F17.200 Nicotine dependence, unspecified, uncomplicated (principal); J43.1 Panlobular emphysema; R05.9 Cough, unspecified
CPT/HCPCS: 99213

== ENCOUNTER → 2023-09-03 13:02 | Outpatient (BNVA) | payer MEDICARE, SELFPAY | PROVIDERS: PCP Hospitalist; Visit Provider Internal Medicine | DX: J43.1 Panlobular emphysema (principal); R05.9 Cough, unspecified; F17.200 Nicotine dependence, unspecified, uncomplicated | CPT/HCPCS: 99212 ==

== ENCOUNTER 2023-09-18 12:19 | Outpatient (AMB) | payer MEDICARE, SELFPAY ==
--- NOTE | 2023-09-18 12:25 | A.OFFPC_ITS ---
Vital Signs 09/18/23 12:28 09/18/23 12:49 Height 5 ft 6 in Weight 180 lb BMI 29.0 BP 190/80 H 164/76 H Blood Pressure Location Lt brachial Lt brachial Position Sitting Left Lateral Respiration 14 Pulse 73 Pulse Source Pulse Oximeter Temp 98.4 F Temp Source Temporal Artery Scan Pulse Oximetry (%) 96 Oxygen Delivery Method Room Air Intake Visit Reasons: fu HTN, Insomnia start statin,clonidine Intake Note: Patient is here to follow up for hypertension and insomnia. 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- albuterol sulfate 90 mcg/actuation 2 puffs PO Q4-6H PRN amlodipine 7.5 mg (1.5 x 5 mg) PO DAILY 90 days aspirin (Adult Low Dose Aspirin) 81 mg PO DAILY atenolol 50 mg PO BID 90 days bupropion HCl 200 mg PO QAM clonidine HCl 0.1 mg PO BEDTIME fluticasone propion-salmeterol 250-50 mcg/dose 1 ea PO BID fluticasone propionate 50 mcg/actuation (Flonase Allergy Relief) 2 sprays intranasal DAILY 30 days gabapentin 600 mg PO BID levothyroxine 50 mcg PO DAILY losartan-hydrochlorothiazide 100-12.5 mg 1 tab PO DAILY nicotine 1 patch transdermal Q24H 28 days omeprazole 20 mg PO BID rivaroxaban (Xarelto) 2.5 mg PO BID rosuvastatin 10 mg PO DAILY sertraline 100 mg PO DAILY Tobacco use date assessed: 07/16/23 HPI HPI Comments History of Present Illness Details 68-year-old female with CKD 3 B, hyperte nsion, arthrosclerosis bilat lower extremities with claudication,CAD, severe plaque within the abdominal aorta beginning at the level of the SMA extending across the origin the left main renal artery with severe atrophy of the left kidney, impaired fasting glucose, COPD, GERD, hypothyroidism, current smoker, DRE, MDD, hemochromatosis, multi joint osteoarthritis, allergic rhinitis Status post appendectomy, right shoulder rotator cuff repair 2016, 07/2023 stenting of the mid abdominal aorta and both common iliac arteries as well as the left external iliac artery with arthrectomy and angioplasty of the left common femoral artery 08/09/2021 Dr Ruy Mooney [facility] Vascular Pulmonology next appt in 1 week Rheumatology Orthopedics Pain management Health maintenance Colonoscopy 2017 declined. Mammogram declined DEXA reports done once, declined further screening. Lung cancer screening program CT scan September 2021, 12/2022 Eyes reports recent eye exam done and report WNL Here today to f/u on insomnia and HTN Since last OV, BP log reviewed SBP range 133-211 DBP range 61-92 Has been taking clonidine 0.1mg at HS this has not helped w/ BP or sleep. Cont to be smoke free for 1 month. Not using patch! 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 Arthritis of left hip Disc degeneration, lumbar Lumbar facet arthropathy Stenosis, spinal, lumbar Sacroiliac joint pain Lumbar radicular pain Rhinitis Hypothyroidism Anxiety Tachycardia Cough COPD (chronic obstructive pulmonary disease) Smoker Surgical History No pertinent past surgical history Social History Household Members: Children Household Members Other:: daughter Housing: House Are you a primary director of critical care to a significant other at home: No Do you presently have visiting nurse or other home services: No 75 years or older and lives alone: No Alcohol intake: current Alcohol intake frequency: holidays/special occasions on ly Alcohol type: beer Patient Tobacco Use Status: Former Tobacco user Tobacco use type: Cigarette Cigarette Packs Per Day: 0 Cigarettes Per Day: 2 e-Cigarette/Vaping Use: Never Used Current occupational status: retired Current occupation: right handed, retired Sexual orientation: Unable to collect Gender identity: Unable to collect Cognitive needs: No Hearing needs: No Vision needs: Yes (wears glasses to drive.) Questionnaire Thrive Questionnaire Date Thrive assessed: 07/16/23 DRE-7 AMB Questionnaire DRE-7 Date DRE - 7 assessed: 07/16/23 Source: Developed by Drs. Jayy Nguyễn, Stephy Coyle, Luis Walker and colleagues, with an educational tino from [employer]. Physical exam (Primary Care) Vital Signs: Last Vital Signs Temp 98.4 F 09/18/23 12:28 Pulse 73 09/18/23 12:28 Resp 14 09/18/23 12:28 BP 190/80 H 09/18/23 12:28 Pulse Ox 96 09/18/23 12:28 Oxygen Delivery Method Room Air 09/18/23 12:28 BMI result Body Mass Index 29.0 Tobacco/Smoking Status: Tobacco use Status Tobacco use date assessed 07/16/23 09/18/23 12:27 Patient Tobacco Use Status Former Tobacco user 09/18/23 12:27 Tobacco use type Cigarette 09/18/23 12:27 e-Cigarette/Vaping Use Never Used 09/18/23 12:27 Thrive Assessment: Date of Thrive Assessment Date Thrive assessed 07/16/23 09/18/23 12:27 Const Other: awake alert oriented pleasant speaking in full sentences Assessment and Plan Assessment & Plan (1) Smoker: Comment: Lifelong smoker. Stopped smoking! CT scan of the chest in September 2021, negative, She is in the lung screening program. Code(s): F17.200 - Nicotine dependence, unspecified, uncomplicated (2) HTN (hypertension): Comment: Blood pressure remains above goal on amlodipine 7.5 mg daily, atenolol 50 mg twice per day, losartan-hydrochlorothiazide 100-12.5 mg p.o. daily. Not improved w/ addition of clonidine 0.1 mg at HS. The plan will be to increase her clonidine from 0.1 mg to 0.2mg at bedtime to see if this family helps her blood pressure but also helps her complaints of insomnia. I have advised her to continue to keep a blood pressure log which was reviewed today and shows consistent readings greater than 150 systolic. Bring this log with her to the next appointment which should be scheduled on 2 weeks we will titrate the clonidine if she is tolerating this. Code(s): I10 - Essential (primary) hypertension Qualifiers: Hypertension type: unspecified Qualified Code(s): I10 - Essential (primary) hypertension (3) MDD (major depressive disorder), recurrent episode: Comment: Currently on sertraline associated symptoms include insomnia. Was managed with p.r.n. Ativan in the past. Education about the [place] criteria given today. She is willing to entertain clonidine which she will be used to help control her blood pressure until hopefully induce sleep. I will follow up with her in 2 weeks to see if this is working for her blood pressure as well as her insomnia Code(s): F33.9 - Major depressive disorder, recurrent, unspecified Qualifiers: Major depression episode severity: mild Qualified Code(s): F33.0 - Major depressive disorder, recurrent, mild (4) Hemochromatosis: Comment: Was active with Hematology in the past for phlebotomy. Unfortunately she syncopized during the last 1. And has refused to go back since. We will check labs in September of 2023 Code(s): E83.119 - Hemochromatosis, unspecified Qualifiers: Hemochromatosis type: other hemochromatosis Qualified Code(s): E83.118 - Other hemochromatosis (5) IFG (impaired fasting glucose): Comment: check cmp and hga1c before next visit Code(s): R73.01 - Impaired fasting glucose (6) CKD (chronic kidney disease) stage 3, GFR 30-59 ml/min: Comment: 08/2022 gfr 44 cr 1.23; 07/11/23 Bun 21 cr 1.63 egfr 32 stable avoid nephrotoxic agents. Atrophic left kidney noted on imaging July 2023 done by vascular Will check labs for secondary hyperparathyroid & f/u in 2 weeks Code(s): N18.30 - Chronic kidney disease, stage 3 unspecified Qualifiers: Chronic kidney disease stage 3 subtype: stage 3b (GFR 30-44) Qualified Code(s): N18.32 - Chronic kidney disease, stage 3b (7) Hypothyroidism: Comment: check labs Code(s): E03.9 - Hypothyroidism, unspecified Qualifiers: Hypothyroidism type: acquired Qualified Code(s): E03.9 - Hypothyroidism, unspecified Plan This note is constructed using voice recognition software. While every effort has been made to ensure accuracy in psychologist experimental, still errors may have been included Sometimes, these errors may affect the content or meaning of the given sentence . Total time spent caring for the patient today was 45 minutes. This includes time spent before the visit reviewing the chart, time spent during the visit, and time spent after the visit on documentation Orders: Orders Lipid Panel Today E03.9 - Hypothyroidism, unspecified, E83.119 - Hemochromatosis, unspecified, I10 - Essential (primary) hypertension, N18.30 - Chronic kidney disease, stage 3 unspecified, R73.01 - Impaired fasting glucose Vitamin D 1,25 dihydroxy Today E03.9 - Hypothyroidism, unspecified, E83.119 - Hemochromatosis, unspecified, I10 - Essential (primary) hypertension, N18.30 - Chronic kidney disease, stage 3 unspecified, R73.01 - Impaired fasting glucose Parathyroid Hormone Intact Today E03.9 - Hypothyroidism, unspecified, E83.119 - Hemochromatosis, unspecified, I10 - Essential (primary) hypertension, N18.30 - Chronic kidney disease, stage 3 unspecified, R73.01 - Impaired fasting glucose Hemoglobin A1c Today R73.01 - Impaired fasting glucose Comprehensive Stevenson. Panel Fast Today E03.9 - Hypothyroidism, unspecified, E8 3.119 - Hemochromatosis, unspecified, I10 - Essential (primary) hypertension, N18.30 - Chronic kidney disease, stage 3 unspecified, R73.01 - Impaired fasting glucose Microalbumin, Random (w Creat) Today E03.9 - Hypothyroidism, unspecified, E83.119 - Hemochromatosis, unspecified, I10 - Essential (primary) hypertension, N18.30 - Chronic kidney disease, stage 3 unspecified, R73.01 - Impaired fasting glucose TSH reflex Free T4 Today E03.9 - Hypothyroidism, unspecified, E83.119 - Hemochromatosis, unspecified, I10 - Essential (primary) hypertension, N18.30 - Chronic kidney disease, stage 3 unspecified, R73.01 - Impaired fasting glucose Phosphorus Today E03.9 - Hypothyroidism, unspecified, E83.119 - Hemochromatosis, unspecified, I10 - Essential (primary) hypertension, N18.30 - Chronic kidney disease, stage 3 unspecified, R73.01 - Impaired fasting glucose Magnesium Today E03.9 - Hypothyroidism, unspecified, E83.119 - Hemochromatosis, unspecified, I10 - Essential (primary) hypertension, N18.30 - Chronic kidney disease, stage 3 unspecified, R73.01 - Impaired fasting glucose Ferritin Today E03.9 - Hypothyroidism, unspecified, E83.119 - Hemochromatosis, unspecified, I10 - Essential (primary) hypertension, N18.30 - Chronic kidney disease, stage 3 unspecified, R73.01 - Impaired fasting glucose Complete Blood Count no Diff Today E03.9 - Hypothyroidism, unspecified, E83.119 - Hemochromatosis, unspecified, I10 - Essential (primary) hypertension, N18.30 - Chronic kidney disease, stage 3 unspecified, R73.01 - Impaired fasting glucose Medications: New clonidine HCl 0.2 mg PO BEDTIME 30 tabs 0RF Discontinued clonidine HCl Discontinued Reason: Doctor's Order 0.1 mg PO BEDTIME 30 tabs 0RF Patient Instructions: RTO IN 2 WEEKS TO FU ON HTN, INSOMNIA AND CHRONIC DZ. LABS PRIOR PLEASE Coding Level of Care Code Est Pt Level 5 (18673) Diagnoses Smoker F17.200 Hypertension, unspecified type I10 Hypertension type: unspecified Mild episode of recurrent major depressive disorder F33.0 Major depression episode severity: mild Other hemochromatosis E83.118 Hemochromatosis type: other hemochromatosis IFG (impaired fasting glucose) R73.01 Stage 3b chronic kidney disease N18.32 Chronic kidney disease stage 3 subtype: stage 3b (GFR 30-44) Acquired hypothyroidism E03.9 Hypothyroidism type: acquired
[2023-09-18 12:28] VITALS: BP 190/80; PULSE 73; RESP 14; TEMP 36.9; O2SAT 96; BMI 29.0
[2023-09-18 12:49] VITALS: BP 164/76
== END 2023-09-18 13:14 | disposition home or self-care (01) ==
PROVIDERS: PCP Nurse Practitioner Family; Visit Provider Nurse Practitioner Family
DX: I12.9 Hypertensive chronic kidney disease with stage 1 through stage 4 chronic kidney disease, or unspecified chronic kidney disease (principal); F33.0 Major depressive disorder, recurrent, mild; N18.32 Chronic kidney disease, stage 3b; F17.200 Nicotine dependence, unspecified, uncomplicated; E83.118 Other hemochromatosis; R73.01 Impaired fasting glucose; E03.9 Hypothyroidism, unspecified
CPT/HCPCS: 99215

== ENCOUNTER 2023-10-01 11:36 | Outpatient (REF) | payer MEDICARE, SELFPAY ==
[2023-10-01 12:16] LABS: Hematocrit 32.8 % (37.0-47.0); Hemoglobin 12.1 g/dl (12.0-16.0); Mean Corpuscular HGB Conc 36.9 g/dl (31.0-35.0); Mean Corpuscular Volume 97.6 fL (80.0-98.0); Mean Platelet Volume 9.8 fL (9.4-12.3); Platelet Count 135 X10*3/uL (160-400); Red Blood Count 3.36 X10*6/uL (4.20-5.50); Red Cell Distribution Width 12.5 % (11.0-16.0); White Blood Count 4.2 X10*3/uL (4.8-10.8)
[2023-10-01 12:26] LABS: Estimated Average Glucose 82 mg/dL; Hemoglobin A1c % 4.5 % (<6.0)
[2023-10-01 12:57] LABS: Alanine Aminotransferase 17 U/L (0-31); Albumin Level 4.1 g/dL (3.5-5.0); Alkaline Phosphatase 95 U/L (39-117); Anion Gap 14 (12-20); Aspartate Amino Transferase 24 U/L (5-31); Bilirubin Total 0.9 mg/dL (0.0-1.0); Blood Urea Nitrogen 25 mg/dL (9-16); Carbon Dioxide 26 mmol/L (22-29); Chloride 97 mmol/L (96-108); Cholesterol 137 mg/dL (<200); Estimated Glomerular Filt Rate 37; Glucose Fasting 103 mg/dL (60-99); HDL Cholesterol 68 mg/dL (>40); LDL Cholesterol Calculated 55 mg/dL (<100); Phosphorus 3.3 mg/dL (2.7-4.5); Potassium 4.1 mmol/L (3.3-5.1); Sodium 133 mmol/L (135-145); Total Protein 7.4 g/dL (6.5-8.0); Triglycerides 70 mg/dL (<150)
[2023-10-01 13:08] LABS: Ferritin 93 ng/mL (10-250); TSH reflex Free T4 3.53 uIU/mL (0.32-4.0)
[2023-10-01 13:27] LABS: Parathyroid Hormone Intact 114.7 pg/mL (8.7-77.1)
[2023-10-05 16:58] LABS: VITAMIN D (1,25 OH) D3 27 pg/mL; Vit D (1,25-Dihydroxy) Total 27 pg/mL (18-72); Vitamin D (1,25 OH) D2 <8 pg/mL
== END 2023-10-01 11:37 | disposition home or self-care (01) ==
LOC: HO.LAB 11:36
PROVIDERS: PCP Nurse Practitioner Family; Visit Provider Nurse Practitioner Family
DX: I12.9 Hypertensive chronic kidney disease with stage 1 through stage 4 chronic kidney disease, or unspecified chronic kidney disease (principal); N18.30 Chronic kidney disease, stage 3 unspecified; E03.9 Hypothyroidism, unspecified; E83.119 Hemochromatosis, unspecified; R73.01 Impaired fasting glucose
CPT/HCPCS: 36415; 80053; 80061; 82652; 82728; 83036; 83735; 83970; 84100; 84443; 85027

== ENCOUNTER 2023-10-07 11:54 | Outpatient (AMB) | payer MEDICARE, SELFPAY ==
--- NOTE | 2023-10-07 11:57 | MHC.PC.OV ---
Vital Signs 10/07/23 11:58 10/07/23 12:32 Height 5 ft 6 in Weight 182 lb BMI 29.4 BP 164/70 H 158/62 H Blood Pressure Location Lt brachial Rt brachial Position Sitting Sitting Respiration 13 Pulse 77 Pulse Source Pulse Oximeter Pulse Oximetry (%) 96 Oxygen Delivery Method Room Air Intake Visit Reasons: complex dz mgmt with me Intake Note: Patient is here for a follow up of care. Patient reports she has concerns for her blood pressure. Patient documented blood pressure readings at home from 09/19/23-10/06/23. 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 Developer Required: No Accompanied by: Self / Same As Patient Allergies codeine Allergy (Unknown, Verified 10/07/23 12:01) Unknown Medication List - Last Reconciled 10/07/23 by Blank Rodriguez, [facility]- albuterol sulfate 90 mcg/actuation 2 puffs PO Q4-6H PRN amlodipine 10 mg PO DAILY aspirin (Adult Low Dose Aspirin) 81 mg PO DAILY atenolol 50 mg PO BID 90 days bupropion HCl SR 200 mg PO QAM clonidine HCl 0.2 mg PO BEDTIME fluticasone propion-salmeterol 250-50 mcg/dose 1 ea PO BID fluticasone propionate 50 mcg/actuation (Flonase Allergy Relief) 2 sprays intranasal DAILY 30 days gabapentin 600 mg PO BID levothyroxine 50 mcg PO DAILY losartan-hydrochlorothiazide 100-12.5 mg 1 tab PO DAILY nicotine 1 patch transdermal Q24H 28 days omeprazole 20 mg PO BID rivaroxaban (Xarelto) 2.5 mg PO BID rosuvastatin 10 mg PO DAILY sertraline 100 mg PO DAILY Tobacco use date assessed: 07/16/23 Dental Screening Dental Screen Date: 07/16/23 HPI HPI Comments History of Present Illness Details 68-year-old female with CKD 3 B, hypertension, arthrosclerosis bilat lower extremities with claudication,CAD, severe plaque within the abdominal aorta beginning at the level of the SMA extending across the origin the left main renal artery with severe atrophy of the left kidney, impaired fasting glucose, COPD, GERD, hypothyroidism, current smoker, DRE, MDD, hemochromatosis, multi joint osteoarthritis, allergic rhinitis Status post appendectomy, right shoulder rotator cuff repair 2016, 07/2023 stenting of the mid abdominal aorta and both common iliac arteries as well as the left external iliac artery with arthrectomy and angioplasty of the left common femoral artery Specialist Vascular Pulmonology Rheumatology Orthopedics Pain management Health maintenance Colonoscopy 2017 declined. Mammogram declined DEXA reports done once, declined further screening. Lung cancer screening program CT scan September 2021, 12/2022 Eyes reports recent eye exam done and report WNL Here today with complaints of swelling of the left lower extremity. Reports that the swelling has been ongoing for some time. However over the last couple of weeks it has gotten worse. Reports that it becomes huge at night when she goes to bed. When she wakes in the morning the edema is down. She has no pain in the leg. But she admits that the other night while she was making the bed which was at the end of the day she had so much swelling that she did develop some paresthesias in her left buttocks. This has not occurred since. She denies any chest pain. Reports that she had an ultrasound done of the [facility] on 10/03/2023. Her next follow up there is 10/23/2023. She is taking all of her medications as prescribed including Xarelto. In regards to her blood pressure. She continues to take all of her medications as prescribed. The clonidine was increased from 0.1 mg to 0.2 mg at the last visit. While this is helped her sleep really has not helped her blood pressure. Blood pressure log reviewed and shows a systolic blood pressure greater than 160. Having bruising, atraumatic - on Xarelto Remains smoke free ! However she is feeling some wheezing that occurs throughout the day. Tolerating compliant of her Advair. Not using albuterol. Labs from 10/01/2023 show a low WBC 4.2, macrocytic anemia, red blood cell count 3.36, normal hemoglobin, hematocrit 32.8, platelet 135, sodium 133, BUN 25, creatinine 1.43, GFR 37, fasting glucose 103, A1c 4.5%, normal phosphorus, normal magnesium, normal calcium, normal ferritin, normal LFTs, normal triglycerides, cholesterol, LDL, HDL, normal TSH, elevated parathyroid hormone 114.7, vitamin-D WNL urine microalbumin pending I called [facility] [phone] at 1538, I was able to speak to Dr Moeller He advised that the ultrasound that was done was an arterial ultrasound and not a venous study. The arterial ultrasound looked good. Show that the stents were patent in the common femoral artery looked good. Recommended a venous study of the left lower extremity to be done at the [facility]. 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 Arthritis of left hip Disc degeneration, lumbar Lumbar facet arthropathy Stenosis, spinal, lumbar Sacroiliac joint pain Lumbar radicular pain Rhinitis Hypothyroidism Anxiety Tachycardia Cough COPD (chronic obstructive pulmonary disease) Smoker Surgical History No pertinent past surgical history Social History Household Members: Children Household Members Other:: daughter Housing: House Are you a primary laboratory animal caretaker to a significant other at home: No Do you presently have visiting nurse or other home services: No 75 years or older and lives alone: No Alcohol intake: current Alcohol intake frequency: holidays/special occasions only Alcohol type: beer Patient Tobacco Use Status: Former Tobacco user Tobacco use type: Cigarette Cigarette Packs Per Day: 0 Cigarettes Per Day: 2 e-Cigarette/Vaping Use: Never Used Current occupational status: retired Current occupation: right handed, retired Sexual orientation: Unable to collect Gender identity: Unable to collect Cognitive needs: No Hearing needs: No Vision needs: Yes (wears glasses to drive.) Questionnaire Thrive Questionnaire Date Thrive assessed: 07/16/23 DRE-7 AMB Questionnaire DRE-7 Date DRE - 7 assessed: 07/16/23 Source: Developed by Drs. Jayy Nguyễn, Stephy Coyle, Luis Walker and colleagues, with an educational tino from [employer]. Review of Systems Const All systems reviewed & are unremarkable except as noted in HPI and below Physical exam (Primary Care) Vital Signs: Last Vital Signs Pulse 77 10/07/23 11:58 Resp 13 10/07/23 11:58 BP 158/62 H 10/07/23 12:32 Pulse Ox 96 10/07/23 11:58 Oxygen Delivery Method Room Air 10/07/23 11:58 BMI result Body Mass Index 29.4 Tobacco/Smoking Status: Tobacco use Status Tobacco use date assessed 07/16/23 10/07/23 12:03 Patient Tobacco Use Status Former Tobacco user 10/07/23 12:03 Tobacco use type Cigarette 10/07/23 12:03 e-Cigarette/Vaping Use Never Used 10/07/23 12:03 Thrive Assessment: Date of Thrive Assessment Date Thrive assessed 07/16/23 10/07/23 12:03 Date of discussion: 08/27/23 Const Other: awake alert NAD MMM RRR LS with scattered ins/exp wheeze throughout Bilateral lower extremities hairless, decreased pedal pulse. + 1 edema LLE up to hip. RLE with trace edema. Skin intact & warm to touch. Assessment and Plan Assessment & Plan (1) Secondary hyperparathyroidism (of renal origin): Comment: elevated parathyroid hormone 114.7, vitamin-D & Ca WNL, BUN 25, creatinine 1.43, GFR 37 Plan: low phosphorus diet, hand out provided. Monitor Code(s): N25.81 - Secondary hyperparathyroidism of renal origin (2) CKD (chronic kidney disease) stage 3, GFR 30-59 ml/min: Comment: 08/2022 gfr 44 cr 1.23; 07/11/23 Bun 21 cr 1.63 egfr 32 stable avoid nephrotoxic agents. Atrophic left kidney noted on imaging July 2023 done by vascular 09/2023 elevated parathyroid hormone 114.7, vitamin-D & Ca WNL, BUN 25, creatinine 1.43, GFR 37 Code(s): N18.30 - Chronic kidney disease, stage 3 unspecified Qualifiers: Chronic kidney disease stage 3 subtype: stage 3b (GFR 30-44) Qualified Code(s): N18.32 - Chronic kidney disease, stage 3b (3) HTN (hypertension): Comment: Blood pressure remains above goal on amlodipine 7.5 mg daily, atenolol 50 mg twice per day, losartan-hydrochlorothiazide 100-12.5 mg p.o. daily. Slightly improved w/ addition of clonidine 0.2 mg at HS. The plan will be to increase her clonidine from 0.2mg to 0.3 mg at bedtime to see if this family helps her blood pressure but also helps her complaints of insomnia. I have advised her to continue to keep a blood pressure log which was reviewed today and shows consistent readings greater than 150 systolic. Bring this log with her to the next appointment which should be scheduled on 2 weeks Code(s): I10 - Essential (primary) hypertension Qualifiers: Hypertension type: unspecified Qualified Code(s): I10 - Essential (primary) hypertension (4) Edema of left lower extremity: Comment: Venous US of LLE, coordination of care w/ Dr Story. Code(s): R60.0 - Localized edema (5) Hemochromatosis: Comment: Was active with Hematology in the past for phlebotomy. Hgb and Hct stable along w/ LFTs NO longer smoking! Code(s): E83.119 - Hemochromatosis, unspecified Qualifiers: Hemochromatosis type: other hemochromatosis Qualified Code(s): E83.118 - Other hemochromatosis (6) Renal atrophy, left: Comment: see CKD Code(s): N26.1 - Atrophy of kidney (terminal) (7) CAD (coronary artery disease), [place] coronary artery: Comment: on ASA. RX for rosuvastatin 10mg prescribed. Repeat lipid panel 09/2023. Total cholesterol 137, LDL 55, HDL 68, triglycerides 70, at goal. Cont. rosuvastatin & Smoking cessation Code(s): I25.10 - Atherosclerotic heart disease of [place] coronary artery without angina pectoris Qualifiers: [place] vs. transplanted heart: [place] heart Associated angina: without angina Qualified Code(s): I25.10 - Atherosclerotic heart disease of [place] coronary artery without angina pectoris Plan This note is constructed using voice recognition software. While every effort has been made to ensure accuracy in sweatband separator, still errors may have been included Sometimes, these errors may affect the content or meaning of the given sentence . Total time spent caring for the patient today was 75 minutes. This includes time spent before the visit reviewing the chart, time spent during the visit, and time spent after the visit on documentation Orders: Orders US venous duplex LE LT Today R60.0 - Localized edema Medications: New clonidine HCl 0.3 mg PO BEDTIME 30 tabs 0RF Discontinued clonidine HCl Discontinued Reason: Doctor's Order 0.2 mg PO BEDTIME 30 tabs 0RF Patient Instructions: rto in 2 weeks to f/u on edema and BP/insomnia. Coding Level of Care Code Est Pt Level 5 (40494) Diagnoses Secondary hyperparathyroidism (of renal origin) N25.81 Stage 3b chronic kidney disease N18.32 Chronic kidney disease stage 3 subtype: stage 3b (GFR 30-44) Hypertension, unspecified type I10 Hypertension type: unspecified Edema of left lower extremity R60.0 Other hemochromatosis E83.118 Hemochromatosis type: other hemochromatosis Renal atrophy, left N26.1 Coronary artery disease involving [place] coronary artery of [place] heart without angina pectoris I25.10 [place] vs. transplanted heart: [place] heart Associated angina: without angina
[2023-10-07 11:58] VITALS: BP 164/70; PULSE 77; RESP 13; O2SAT 96; BMI 29.4
[2023-10-07 12:32] VITALS: BP 158/62
== END 2023-10-07 12:59 | disposition home or self-care (01) ==
PROVIDERS: PCP Hospitalist; Visit Provider Nurse Practitioner Family
DX: N25.81 Secondary hyperparathyroidism of renal origin (principal); I12.9 Hypertensive chronic kidney disease with stage 1 through stage 4 chronic kidney disease, or unspecified chronic kidney disease; N18.32 Chronic kidney disease, stage 3b; R60.0 Localized edema; E83.118 Other hemochromatosis; N26.1 Atrophy of kidney (terminal); I25.10 Atherosclerotic heart disease of native coronary artery without angina pectoris
CPT/HCPCS: 99215; G2211

== ENCOUNTER 2023-10-24 11:54 | Outpatient (AMB) | payer MEDICARE, SELFPAY ==
[2023-10-24 12:16] VITALS: BP 136/84; PULSE 78; RESP 14; TEMP 36.7; O2SAT 99; BMI 28.6
--- NOTE | 2023-10-24 12:16 | MHC.PC.OV ---
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: No Accompanied by: Self / Same As Patient Allergies codeine Allergy (Unknown, Verified 10/24/23 12:43) Unknown Medication List - Last Reconciled 10/24/23 by Blank Rodriguez, [facility]- albuterol sulfate 90 mcg/actuation 2 puffs PO Q4-6H PRN amlodipine 10 mg PO DAILY aspirin (Adult Low Dose Aspirin) 81 mg PO DAILY atenolol 50 mg PO BID 90 days bupropion HCl SR 200 mg PO QAM clonidine HCl 0.3 mg PO BEDTIME fluticasone propion-salmeterol 250-50 mcg/dose 1 ea PO BID fluticasone propionate 50 mcg/actuation (Flonase Allergy Relief) 2 sprays intranasal DAILY 30 days gabapentin 600 mg PO BID levothyroxine 50 mcg PO DAILY losartan-hydrochlorothiazide 100-12.5 mg 1 tab PO DAILY omeprazole 20 mg PO BID rivaroxaban (Xarelto) 2.5 mg PO BID rosuvastatin 10 mg PO DAILY sertraline 100 mg PO DAILY Tobacco use date assessed: 10/24/23 Dental Screening Dental Screen Date: 07/16/23 HPI HPI Comments History of Present Illness Details 68-year-old female with CKD 3 B, hypertension, arthrosclerosis bilat lower extremities with claudication,CAD, severe plaque within the abdominal aorta beginning at the level of the SMA extending across the origin the left main renal artery with severe atrophy of the left kidney, impaired fasting glucose, COPD, GERD, hypothyroidism, current smoker, DRE, MDD, hemochromatosis, multi joint osteoarthritis, allergic rhinitis Status post appendectomy, right shoulder rotator cuff repair 2016, 07/2023 stenting of the mid abdominal aorta and both common iliac arteries as well as the left external iliac artery with arthrectomy and angioplasty of the left common femoral artery Here today with the complaints of not feeling well. 2 weeks ago, dizzy spell, clicking in ears. Then developed rigors and T 103. 02 88% RA. [place] like she couldnt breathe. Did not go to ED as she did not want to. Has been using inhalers however now feels like she has thrush. Has since stopped using her Advair she feels this is what caused her oral thrush. Her mouth feels dry, she has some bleeding on the cracks of her mouth. Continues to have low-grade temp. Fever is better 99-100 at bedtime. Still taking APAP QD at HS. Breathing is better. Using albuterol only. Feels congested in her chest. Like she can not cough up the sputum. B12 level checked today in 929. Folate level within normal limits Edema in LLE is improved. US was negative for DVT. 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 Arthritis of left hip Disc degeneration, lumbar Lumbar facet arthropathy Stenosis, spinal, lumbar Sacroiliac joint pain Lumbar radicular pain Rhinitis Hypothyroidism Anxiety Tachycardia Cough COPD (chronic obstructive pulmonary disease) Smoker Surgical History No pertinent past surgical history Social History Household Members: Children Household Members Other:: daughter Housing: House Are you a primary home health aide caregiver to a significant other at home: No Do you presently have visiting nurse or other home services: No 75 years or older and lives alone: No Alcohol intake: current Alcohol intake frequency: holidays/special occasions only Alcohol type: beer Patient Tobacco Use Status: Former Tobacco user Tobacco use type: Cigarette Cigarette Packs Per Day: 0 Cigarettes Per Day: 2 e-Cigarette/Vaping Use: Never Used Current occupational status: retired Current occupation: right handed, retired Sexual orientation: Unable to collect Gender identity: Unable to collect Cognitive needs: No Hearing needs: No Vision needs: Yes (wears glasses to drive.) Questionnaire PHQ-9 Over the last 2 weeks, how often have you been bothered by any of the following problems? 1. Little interest or pleasure in doing things: not at all 2. Feeling down, depressed, or hopeless: not at all 3. Trouble falling or staying asleep, or sleeping too much: not at all 4. Feeling tired or having little energy: not at all 5. Poor appetite or overeating: not at all 6. Feeling bad about yourself - or that you are a failure or have let yourself or your family down: not at all 7. Trouble concentrating on things, such as reading the newspaper or watching television: not at all 8. Moving or speaking so slowly that other people could have noticed. Or the opposite - being so fidgety or restless that you have been moving around a lot more than usual: not at all 9. Thoughts that you would be better off or of hurting yourself in some way: not at all Total score: 0 Depression Screening Interpretation: Negative (negative screen) Depression Screening Done: Yes [id number] - PHQ-9 Billing: Yes Source: Developed by Drs. Jayy Nguyễn, Stephy Coyle, Luis Walker and colleagues, with an educational tino from [employer]. Thrive Questionnaire Date Thrive assessed: 07/16/23 DRE-7 AMB Questionnaire DRE-7 Date DRE - 7 assessed: 07/16/23 Source: Developed by Drs. Jayy Nguyễn, Stephy Coyle, Luis Walker and colleagues, with an educational tino from [employer]. ACT Questionnaire In the past 4 weeks, how much of the time did your asthma keep you from getting as much done at work, school or at home?: None of the time During the past 4 weeks, how often have you had shortness of breath?: Not at all During the past 4 weeks, how often did your asthma symptoms wake you up at night or earlier than usual in the morning?: Not at all During the past 4 weeks, how often have you had to use your rescue inhaler or nebulizer medication?: Once a week or less How would you rate your asthma control during the past 4 weeks?: Completely controlled ACT Interpretation: Negative Score: 24 Review of Systems Const All systems reviewed & are unremarkable except as noted in HPI and below Physical exam (Primary Care) Vital Signs: Last Vital Signs Temp 98.1 F 10/24/23 12:16 Pulse 78 10/24/23 12:16 Resp 14 10/24/23 12:16 BP 136/84 10/24/23 12:16 Pulse Ox 99 10/24/23 12:16 Oxygen Delivery Method Room Air 10/24/23 12:16 BMI result Body Mass Index 28.6 Tobacco/Smoking Status: Tobacco use Status Tobacco use date assessed 10/24/23 10/24/23 12:25 Patient Tobacco Use Status Former Tobacco user 10/24/23 12:25 Tobacco use type Cigarette 10/24/23 12:25 e-Cigarette/Vaping Use Never Used 10/24/23 12:25 PHQ-9: PHQ-9 Score PHQ-9: Total score 0 10/24/23 12:55 Depression Screening Interpretation: Negative (negative screen) Thrive Assessment: Date of Thrive Assessment Date Thrive assessed 07/16/23 10/24/23 12:25 Date of discussion: 08/27/23 Const Other: awake alert NAD mildly ill appearing TM intact and clear bilat Nares w/ thick mucoid d/c bilat, turbinates pale, no sinus tenderness Glossitis, tongue and oral mucosa dry, pharynx w/o exudate RRR 2/6 systolic murmur LS dim throughout, faint scattered ins/exp wheeze throughout Bilateral lower extremities hairless, decreased pedal pulse, no edema LLE, . RLE with trace edema. Skin intact & warm to touch. Assessment and Plan Assessment & Plan (1) COPD (chronic obstructive pulmonary disease): Comment: COPD with exacerbation. Treat with doxycycline 100 mg p.o. b.i.d.. Continue Laury use. Continue Advair. Make sure to rinse mouth after use. New prescription given for DuoNeb updraft treatment along with an updraft machine. Use as directed. Code(s): J44.9 - Chronic obstructive pulmonary disease, unspecified Qualifiers: COPD type: emphysema Emphysema type: panlobular Qualified Code(s): J43.1 - Panlobular emphysema (2) Glossitis: Comment: b12 WNL. Will treat her for oral thrush Code(s): K14.0 - Glossitis (3) Edema of left lower extremity: Comment: Venous US of LLE, coordination of care w/ Dr Story. Negative for DVT Edema is now resolved Code(s): R60.0 - Localized edema (4) Acute bacterial sinusitis: Comment: tx w ABT and RTO for close f/u Code(s): J01.90 - Acute sinusitis, unspecified; B96.89 - Other specified bacterial agents as the cause of diseases classified elsewhere (5) HTN (hypertension): Comment: Blood pressure remains above goal on amlodipine 7.5 mg daily, atenolol 50 mg twice per day, losartan-hydrochlorothiazide 100-12.5 mg p.o. daily. Greatly improved w/ Clonidine 0.3 mg at bedtime Also helping her insomnia. I have advised her to continue to keep a blood pressure log which was reviewed today and shows consistent readings greater than 150 systolic. Bring this log with her to the next appointment which should be scheduled on 1 week Code(s): I10 - Essential (primary) hypertension Qualifiers: Hypertension type: unspecified Qualified Code(s): I10 - Essential (primary) hypertension Orders: Orders Vitamin B12 and Folate Today K14.0 - Glossitis Methylmalonic Acid Today K14.0 - Glossitis Homocysteine Today K14.0 - Glossitis Intrinsic Factor Antibodies Today K14.0 - Glossitis Medications: New doxycycline hyclate 100 mg PO BID 14 caps 0RF 7 days nebulizers As directed 1 ea 0RF J43.1 - Panlobular emphysema nebulizer accessories As directed 1 ea 0RF J43.1 - Panlobular emphysema ipratropium-albuterol 0.5 mg-3 mg(2.5 mg base)/3 mL 3 mL inhalation QID PRN 180 mL 0RF wheezing 30 days Refilled clonidine HCl 0.3 mg PO BEDTIME 90 tabs 0RF Patient Instructions: Return to office in 1 week for close follow up. Take medications as directed. Coding Level of Care Code Est Pt Level 4 (32916) Complex EM visit Add On G2211 Diagnoses Panlobular emphysema J43.1 COPD type: emphysema Emphysema type: panlobular Glossitis K14.0 Edema of left lower extremity R60.0 Acute bacterial sinusitis J01.90; B96.89 Hypertension, unspecified type I10 Hypertension type: unspecified
== END 2023-10-24 13:10 | disposition home or self-care (01) ==
PROVIDERS: PCP Nurse Practitioner Family; Visit Provider Nurse Practitioner Family
DX: J43.1 Panlobular emphysema (principal); K14.0 Glossitis; R60.0 Localized edema; J01.90 Acute sinusitis, unspecified; B96.89 Other specified bacterial agents as the cause of diseases classified elsewhere; I10 Essential (primary) hypertension
CPT/HCPCS: 99214; G2211

== ENCOUNTER 2023-10-24 12:52 | Outpatient (REF) | payer MEDICARE, SELFPAY ==
[2023-10-24 15:18] LABS: Folate 5.4 ng/mL (> or = 4.0); Vitamin B12 929 pg/mL (200-900)
[2023-10-28 04:29] LABS: Methylmalonic Acid 308 nmol/L (87-318)
[2023-10-29 15:13] LABS: Intrinsic Factor Antibodies Negative (Negative)
== END 2023-10-24 12:53 | disposition home or self-care (01) ==
LOC: HO.WFDLDS 12:52
PROVIDERS: Visit Provider Nurse Practitioner Family
DX: K14.0 Glossitis (principal)
CPT/HCPCS: 36415; 82607; 82746; 83921; 86340

== ENCOUNTER 2023-11-01 13:39 | Outpatient (AMB) | payer MEDICARE, SELFPAY ==
--- NOTE | 2023-11-01 13:44 | A.OFFPC_ITS ---
Vital Signs 11/01/23 13:53 11/01/23 13:59 Height 5 ft 6 in Weight 178 lb BMI 28.7 BP 186/90 H 182/90 H Blood Pressure Location Rt brachial Rt brachial Position Sitting Sitting Respiration 16 Pulse 67 Pulse Source Pulse Oximeter Temp 97.2 F Temp Source Temporal Artery Scan Pulse Oximetry (%) 99 Oxygen Delivery Method Room Air Intake Visit Reasons: 30 min illness close fu Intake Note: Follow up Allergies codeine Allergy (Unknown, Verified 11/01/23 13:49) Unknown Medication List - Last Reconciled 11/01/23 by Blank Rodriguez, [facility]- albuterol sulfate 90 mcg/actuation 2 puffs PO Q4-6H PRN amlodipine 10 mg PO DAILY aspirin (Adult Low Dose Aspirin) 81 mg PO DAILY atenolol 50 mg PO BID 90 days bupropion HCl SR 200 mg PO QAM clonidine HCl 0.3 mg PO BEDTIME fluticasone propion-salmeterol 250-50 mcg/dose 1 ea PO BID fluticasone propionate 50 mcg/actuation (Flonase Allergy Relief) 2 sprays intranasal DAILY 30 days gabapentin 600 mg PO BID ipratropium-albuterol 0.5 mg-3 mg(2.5 mg base)/3 mL 3 mL inhalation QID PRN 30 days levothyroxine 50 mcg PO DAILY losartan-hydrochlorothiazide 100-12.5 mg 1 tab PO DAILY nebulizer accessories As directed nebulizers As directed nystatin 5 mL PO TID 10 days omeprazole 20 mg PO BID rivaroxaban (Xarelto) 2.5 mg PO BID rosuvastatin 10 mg PO DAILY sertraline 100 mg PO DAILY Tobacco use date assessed: 11/01/23 Fall risk assessment: No Falls in past year Last assessed Fall Risk: 11/01/23 Dental Screening Dental Screen Date: 07/16/23 HPI HPI Comments History of Present Illness Details 68-year-old female with CKD 3 B, hyperte nsion, arthrosclerosis bilat lower extremities with claudication,CAD, severe plaque within the abdominal aorta beginning at the level of the SMA extending across the origin the left main renal artery with severe atrophy of the left kidney, impaired fasting glucose, COPD, GERD, hypothyroidism, current smoker, DRE, MDD, hemochromatosis, multi joint osteoarthritis, allergic rhinitis Here today for one-week close follow up. Since last office visit she was given a prescription for nystatin swish and swallow to treat her oral complaints, doxycycline to treat concern for bacterial sinusitis and or COPD exacerbation and she was also given nebulizer medication. She was not able to get the nystatin until yesterday so mouth complaints remain the same Feels better Temp at home remains 99 degrees, taking APAP for this, however does not feel rigors or anything of the like Was able to give urine sample today, this was for routine microalbumin however I will send for UA as she is now reporting urinary frequency. Was not able to get nebulizer. She continues to not use the Advair she feels this is responsible for her oral complaints. Using her albuterol 2 times per day. 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 Arthritis of left hip Disc degeneration, lumbar Lumbar facet arthropathy Stenosis, spinal, lumbar Sacroiliac joint pain Lumbar radicular pain Rhinitis Hypothyroidism Anxiety Tachycardia Cough COPD (chronic obstructive pulmonary disease) Smoker Surgical History No pertinent past surgical history Social History Household Members: Children Household Members Other:: daughter Housing: House Are you a primary career advisor to a significant other at home: No Do you presently have visiting nurse or other home services: No 75 years or older and lives alone: No Alcohol intake: current Alcohol intake frequency: holidays/special occasions only Alcohol type: beer Patient Tobacco Use Status: Former Tobacco user Tobacco use type: Cigarette Cigarette Packs Per Day: 0 Cigarettes Per Day: 2 e-Cigarette/Vaping Use: Never Used Current occupational status: retired Current occupation: right handed, retired Sexual orientation: Unable to collect Gender identity: Unable to collect Cognitive needs: No Hearing needs: No Vision needs: Yes (wears glasses to drive.) Questionnaire Thrive Questionnaire Date Thrive assessed: 07/16/23 DRE-7 AMB Questionnaire DRE-7 Date DRE - 7 assessed: 07/16/23 Source: Developed by Drs. Jayy Nguyễn, Stephy Coyle, Luis Walker and colleagues, with an educational tino from [employer]. Review of Systems Const All systems reviewed & are unremarkable except as noted in HPI and below Physical exam (Primary Care) Vital Signs: Last Vital Signs Temp 97.2 F 11/01/23 13:53 Pulse 67 11/01/23 13:53 Resp 16 11/01/23 13:53 BP 182/90 H 11/01/23 13:59 Pulse Ox 99 11/01/23 13:53 Oxygen Delivery Method Room Air 11/01/23 13:53 Care Plan Goal for BP management: Nurse navigator visit in 2 weeks Next steps: Nurse navigator was in 2 weeks BMI result Body Mass Index 28.7 Tobacco/Smoking Status: Tobacco use Status Tobacco use date assessed 11/01/23 11/01/23 13:52 Patient Tobacco Use Status Former Tobacco user 11/01/23 13:45 Tobacco use type Cigarette 11/01/23 13:45 e-Cigarette/Vaping Use Never Used 11/01/23 13:45 Thrive Assessment: Date of Thrive Assessment Date Thrive assessed 07/16/23 11/01/23 13:45 Date of discussion: 08/27/23 Const Other: awake alert NAD TM intact and clear bilat Nares and turbinates within normal limits no sinus tenderness Glossitis, tongue and oral mucosa dry, pharynx w/o exudate RRR 2/6 systolic murmur LS dim throughout Bilateral lower extremities hairless, decreased pedal pulse, no edema LLE, . RLE with trace edema. Skin intact & warm to touch. Assessment and Plan Assessment & Plan (1) Urinary frequency: Comment: Urine results obtained and will be sent to the lab to screen for UTI. Code(s): R35.0 - Frequency of micturition (2) Hypothyroidism: Comment: check labs Code(s): E03.9 - Hypothyroidism, unspecified Qualifiers: Hypothyroidism type: acquired Qualified Code(s): E03.9 - Hypothyroidism, unspecified (3) HTN (hypertension): Comment: Blood pressure remains above goal on amlodipine 10 mg daily, atenolol 50 mg twice per day, losartan-hydrochlorothiazide 100-12.5 mg p.o. daily. Greatly improved w/ Clonidine 0.3 mg at bedtime Also helping her insomnia. I have advised her to continue to keep a blood pressure log Blood pressure is elevated today. We will have her follow up with the nurse navigator in 2 weeks. Code(s): I10 - Essential (primary) hypertension Qualifiers: Hypertension type: unspecified Qualified Code(s): I10 - Essential (primary) hypertension (4) CKD (chronic kidney disease) stage 3, GFR 30-59 ml/min: Comment: 08/2022 gfr 44 cr 1.23; 07/11/23 Bun 21 cr 1.63 egfr 32 stable avoid nephrotoxic agents. Atrophic left kidney noted on imaging July 2023 done by vascular 09/2023 elevated parathyroid hormone 114.7, vitamin-D & Ca WNL, BUN 25, creatinine 1.43, GFR 37 Code(s): N18.30 - Chronic kidney disease, stage 3 unspecified Qualifiers: Chronic kidney disease stage 3 subtype: stage 3b (GFR 30-44) Qualified Code(s): N18.32 - Chronic kidney disease, stage 3b (5) Secondary hyperparathyroidism (of renal origin): Comment: elevated parathyroid hormone 114.7, vitamin-D & Ca WNL, BUN 25, creatinine 1.43, GFR 37 Plan: low phosphorus diet, hand out provided. Monitor Code(s): N25.81 - Secondary hyperparathyroidism of renal origin (6) Glossitis: Comment: b12 WNL. Continue to use nystatin until oral complaints are resolved. Code(s): K14.0 - Glossitis (7) Acute bacterial sinusitis: Comment: Symptoms are improved status post antibiotics. Code(s): J01.90 - Acute sinusitis, unspecified; B96.89 - Other specified bacterial agents as the cause of diseases classified elsewhere (8) COPD (chronic obstructive pulmonary disease): Comment: COPD with exacerbation resolved status post doxycycline 100 mg p.o. b.i.d.. Continue Laury use. She does not want to use the Advair and she has not been able to get the nebulizer. I will have my staff work on getting her the nebulizer machine. In the meantime I have sent in a prescription for Combivent Respimat. Advised to use 4 times a day either scheduled or as needed. Make sure to rinse mouth after use. Code(s): J44.9 - Chronic obstructive pulmonary disease, unspecified Qualifiers: COPD type: emphysema Emphysema type: panlobular Qualified Code(s): J43.1 - Panlobular emphysema Plan This note is constructed using voice recognition software. While every effort has been made to ensure accuracy in oral surgery assistant, still errors may have been included Sometimes, these errors may affect the content or meaning of the given sentence . Total time spent caring for the patient today was 60 minutes. This includes time spent before the visit reviewing the chart, time spent during the visit, and time spent after the visit on documentation Orders: Orders UA CC w/rflx Micro + Cult Today R35.0 - Frequency of micturition Lipid Panel 12/16/23 E03.9 - Hypothyroidism, unspecified, I10 - Essential (primary) hypertension, N18.32 - Chronic kidney disease, stage 3b, N25.81 - Secondary hyperparathyroidism of renal origin Comprehensive [place]. Panel Fast 12/16/23 E03.9 - Hypothyroidism, unspecified, I10 - Essential (primary) hypertension, N18.32 - Chronic kidney disease, stage 3b, N25.81 - Secondary hyperparathyroidism of renal origin Medications: New ipratropium-albuterol 20-100 mcg/actuation (Combivent Respimat) space evenly during waking hours 1 puff inhalation QID 4 grams 0RF 30 days Patient Instructions: Return to office in December with labs done 1 week before appointment. I will also have a scheduled visit with the nurse navigator to recheck your blood pressure. Please return to the office sooner should you need anything. Coding Level of Care Code Est Pt Level 5 (55772) Complex EM visit Add On G2211 Diagnoses Urinary frequency R35.0 Acquired hypothyroidism E03.9 Hypothyroidism type: acquired Hypertension, unspecified type I10 Hypertension type: unspecified Stage 3b chronic kidney disease N18.32 Chronic kidney disease stage 3 subtype: stage 3b (GFR 30-44) Secondary hyperparathyroidism (of renal origin) N25.81 Glossitis K14.0 Acute bacterial sinusitis J01.90; B96.89 Panlobular emphysema J43.1 COPD type: emphysema Emphysema type: panlobular
[2023-11-01 13:53] VITALS: BP 186/90; PULSE 67; RESP 16; TEMP 36.2; O2SAT 99; BMI 28.7
[2023-11-01 13:59] VITALS: BP 182/90
== END 2023-11-01 14:30 | disposition home or self-care (01) ==
PROVIDERS: PCP Nurse Practitioner Family; Visit Provider Nurse Practitioner Family
DX: I12.9 Hypertensive chronic kidney disease with stage 1 through stage 4 chronic kidney disease, or unspecified chronic kidney disease (principal); N18.32 Chronic kidney disease, stage 3b; N25.81 Secondary hyperparathyroidism of renal origin; J43.1 Panlobular emphysema; R35.0 Frequency of micturition; E03.9 Hypothyroidism, unspecified; K14.0 Glossitis; J01.90 Acute sinusitis, unspecified; B96.89 Other specified bacterial agents as the cause of diseases classified elsewhere
CPT/HCPCS: 99215; G2211; G2212

== ENCOUNTER 2023-11-01 14:15 | Outpatient (REF) | payer MEDICARE, SELFPAY ==
[2023-11-01 18:55] LABS: Appearance Urine Clear; Color Urine Yellow; Glucose Urine UA Negative (Negative); Leukocyte Esterase Urine Negative (Negative); Nitrite Urine Negative (Negative); Urine Blood Negative (Negative); Urine Ketones Negative (Negative); Urine Protein Negative (Neg-Trace)
[2023-11-01 19:20] LABS: Creatinine Urine 43.14 mg/dL; Microalbumin Urine < 5.0 mg/L
== END 2023-11-01 14:16 | disposition home or self-care (01) ==
LOC: HO.LAB 14:15
PROVIDERS: Visit Provider Nurse Practitioner Family
DX: I12.9 Hypertensive chronic kidney disease with stage 1 through stage 4 chronic kidney disease, or unspecified chronic kidney disease (principal); N18.30 Chronic kidney disease, stage 3 unspecified; E83.119 Hemochromatosis, unspecified; R73.01 Impaired fasting glucose; E03.9 Hypothyroidism, unspecified; R35.0 Frequency of micturition
CPT/HCPCS: 81003; 82043; 82570

== ENCOUNTER 2023-11-11 11:23 | Outpatient (REF) | payer MEDICARE, SELFPAY ==
[2023-11-11 12:20] LABS: Blood Urea Nitrogen 24 mg/dL (9-16); Estimated Glomerular Filt Rate 40
== END 2023-11-11 11:24 | disposition home or self-care (01) ==
LOC: HO.LAB 11:23
PROVIDERS: Visit Provider Radiology Vascular & Interventional Radiology
DX: R79.89 Other specified abnormal findings of blood chemistry (principal); R94.4 Abnormal results of kidney function studies
CPT/HCPCS: 36415; 82565; 84520

== ENCOUNTER 2023-12-19 13:08 | Outpatient (REF) | payer MEDICARE, SELFPAY ==
[2023-12-19 15:37] LABS: Alanine Aminotransferase 21 U/L (0-31); Albumin Level 4.1 g/dL (3.5-5.0); Alkaline Phosphatase 109 U/L (39-117); Anion Gap 15 (12-20); Aspartate Amino Transferase 26 U/L (5-31); Bilirubin Total 0.9 mg/dL (0.0-1.0); Blood Urea Nitrogen 27 mg/dL (9-16); Calcium 9.4 mg/dL (8.4-10.2); Carbon Dioxide 24 mmol/L (22-29); Chloride 95 mmol/L (96-108); Cholesterol 120 mg/dL (<200); Estimated Glomerular Filt Rate 37; Glucose Fasting 98 mg/dL (60-99); HDL Cholesterol 59 mg/dL (>40); LDL Cholesterol Calculated 46 mg/dL (<100); Potassium 3.7 mmol/L (3.3-5.1); Sodium 130 mmol/L (135-145); Total Protein 7.5 g/dL (6.5-8.0); Triglycerides 77 mg/dL (<150)
[2023-12-20 16:53] LABS: Homocysteine 24.9 umol/L (<10.4)
== END 2023-12-19 13:09 | disposition home or self-care (01) ==
LOC: HO.WFDLDS 13:08
PROVIDERS: Visit Provider Nurse Practitioner Family
DX: K14.0 Glossitis (principal); I12.9 Hypertensive chronic kidney disease with stage 1 through stage 4 chronic kidney disease, or unspecified chronic kidney disease; N18.32 Chronic kidney disease, stage 3b; E03.9 Hypothyroidism, unspecified; N25.81 Secondary hyperparathyroidism of renal origin
CPT/HCPCS: 36415; 80053; 80061; 83090

== ENCOUNTER 2024-01-06 11:12 | Outpatient (AMB) | payer MEDICARE, SELFPAY ==
--- NOTE | 2024-01-06 11:24 | A.OFFPC_ITS ---
Vital Signs 01/06/24 11:25 Height 5 ft 6 in Weight 180 lb 2 oz BMI 29.1 BP 148/62 H Blood Pressure Location Lt brachial Position Sitting Pulse 60 Pulse Source Pulse Oximeter Pulse Oximetry (%) 97 Oxygen Delivery Method Room Air Intake Visit Reasons: F/U ROUTINE COMPLEX CONDITIONS WITH LABS Intake Note: Follow up htn. Allergies codeine Allergy (Unknown, Verified 11/01/23 13:49) Unknown Medication List - Last Reconciled 01/06/24 by Blank Rodriguez, [facility]- albuterol sulfate 90 mcg/actuation 2 puffs PO Q4-6H PRN amlodipine 10 mg PO DAILY aspirin (Adult Low Dose Aspirin) 81 mg PO DAILY atenolol 50 mg PO BID 90 days bupropion HCl SR 200 mg PO QAM clonidine HCl 0.3 mg PO BID fluticasone propion-salmeterol 250-50 mcg/dose 1 ea PO BID fluticasone propionate 50 mcg/actuation (Flonase Allergy Relief) 2 sprays intranasal DAILY 30 days gabapentin 600 mg PO BID ipratropium-albuterol 0.5 mg-3 mg(2.5 mg base)/3 mL 3 mL inhalation QID PRN 30 days ipratropium-albuterol 20-100 mcg/actuation (Combivent Respimat) 1 puff i nhalation QID 30 days levothyroxine 50 mcg PO DAILY losartan-hydrochlorothiazide 100-12.5 mg 1 tab PO DAILY nebulizer accessories Use nebulizer q 6 hrs prn wheezing, sob, cough DX: COPD nebulizers Use nebulizer q 6 hrs prn wheezing, sob, cough DX: COPD nystatin 5 mL PO TID 10 days omeprazole 20 mg PO BID rivaroxaban (Xarelto) 2.5 mg PO BID rosuvastatin 10 mg PO DAILY sertraline 100 mg PO DAILY Tobacco use date assessed: 11/01/23 Dental Screening Dental Screen Date: 07/16/23 HPI HPI Comments History of Present Illness Details 68-year-old female with CKD 3 B, hyperte nsion, arthrosclerosis bilat lower extremities with claudication,CAD, severe plaque within the abdominal aorta beginning at the level of the SMA extending across the origin the left main renal artery with severe atrophy of the left kidney, impaired fasting glucose, COPD, GERD, hypothyroidism, former smoker, DRE, MDD, hemochromatosis, multi joint osteoarthritis, allergic rhinitis Status post appendectomy, right shoulder rotator cuff repair 2017, stenting of the mid abdominal aorta and both common iliac arteries as well as the left external iliac artery with arthrectomy and angioplasty of the left common femoral artery 08/09/2023 Dr R[facility], Angioplasty of the left common iliac artery with stent placement, placement of a left external iliac artery stent and arthrectomy just stenosis of the left common femoral artery November 15, 2023 Specialist Vascular Pulmonology Rheumatology Orthopedics Pain management Renal first appt next week Health maintenance Colonoscopy 2017 declined. Mammogram declined DEXA reports done once, declined further screening. Lung cancer screening program CT scan September 2021, 12/2022 Eyes reports recent eye exam done and report WNL Here today for routine follow up of complex chronic conditions. Her blood pressure is the best it has been controlled in some time. The clonidine 0.3 mg was prescribed b.i.d. however she was taking 0.6 mg at bedtime. While she admits this helped her sleep, it did not control her blood pressures. She was advised to take it twice per day and has been doing so over the last couple of weeks with improvement in her blood pressures. Her only complaint is that of daytime fatigue. Reports she is able to manage however some days she does have to lie down to take a nap. I did refer her to Nephrology for evaluation and treatment of her chronic kidney disease as well as the resistant hypertension. Her 1st appointment is scheduled for 01/14/2024. She continues to have trouble with pain and swelling of the left lower extremity that has been ongoing since September. She is routinely followed by [facility]. Last appointment 12/24/2023. The consult note from this appointment was reviewed. She would ultrasound imaging of the left lower extremity as well as her abdomen. Note indicates additional imaging to be done CTA or traditional angiography however the patient has not heard back yet. She continues on Xarelto 2.5 mg p.o. b.i.d.. She complains of lots of bruising. Otherwise denies any signs of bleeding. She does mention that vascular asked her if she ever had an echocardiogram, she does not recall ever having an echocardiogram. I reviewed her record and what is available to me I do not see an echocardiogram. I reviewed with her the indications for this and she declined to have this done at the current time. When asked about neuro complaints she does state that her vision is worse. Reports that she recently had an eye exam and got new glasses and it was at this time that her vision feels more blurry. Reports that her near vision is also worse. She is now wearing cheaters. She denies any loss of vision. I have encouraged her to follow up with Ophthalmology sooner rather than later, she declines today. Otherwise she denies any headaches, loss of function, chest pain. She reports that her breathing is well controlled with the current time although she has a hard time with the depressive humidity. She is taking all of her medications as prescribed. The rash to her mouth is no w resolved. She continues to report chronic dryness of her mouth. She had labs done on December 19. These were reviewed with her in detail today. Lab do show mild hyponatremia in the setting of hydrochlorothiazide use. Review of her record shows downward trend since starting the hydrochlorothiazide. Labs from December 20 2023 show sodium level of 130, normal potassium, chloride low at 95, BUN 27, creatinine 1.41, EGFR 37, normal fasting glucose, normal calcium, normal LFTs and alk phos, total cholesterol 120, LDL 46, HDL 59, triglycerides 77, homocystine elevated at 24.9 Plan: STOP losartan-HCTZ due to low NA+ Start Losartan 100mg daily, RX sent in today Repeat labs to be done by Renal at appt next week Otherwise no medication changes. Declined eye exam and echo today she had appt w/ [facility] 12/23 i reviewed the note & have asked my staff to call the office to ask if a decision was made regarding additional imaging (note states CTA vs traditional imaging) ? and further clarify if she should remain on Xarelto, notes indicate 3 months from 08/09/23 however she remains on this & has lots of bruising & would like to d/c if able. RTO in Mar/Apr, sooner PRN. This note is constructed using voice recognition software. While every effort has been made to ensure accuracy in gericare aide, still errors may have been included Sometimes, these errors may affect the content or meaning of the given sentence . Total time spent caring for the patient today was 47 minutes. 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 Arthritis of left hip Disc degeneration, lumbar Lumbar facet arthropathy Stenosis, spinal, lumbar Sacroiliac joint pain Lumbar radicular pain Rhinitis Hypothyroidism Anxiety Tachycardia Cough COPD (chronic obstructive pulmonary disease) Smoker Surgical History No pertinent past surgical history Social History Household Members: Children Household Members Other:: daughter Housing: House Are you a primary medical care administrator to a significant other at home: No Do you presently have visiting nurse or other home services: No 75 years or older and lives alone: No Alcohol intake: current Alcohol intake frequency: holidays/special occasions only Alcohol type: beer Patient Tobacco Use Status: Former Tobacco user Tobacco use type: Cigarette Cigarette Packs Per Day: 0 Cigarettes Per Day: 2 e-Cigarette/Vaping Use: Never Used Current occupational status: retired Current occupation: right handed, retired Sexual orientation: Unable to collect Gender identity: Unable to collect Cognitive needs: No Hearing needs: No Vision needs: Yes (wears glasses to drive.) Questionnaire Thrive Questionnaire Date Thrive assessed: 07/16/23 DRE-7 AMB Questionnaire DRE-7 Date DRE - 7 assessed: 07/16/23 Source: Developed by Drs. Jayy Nguyễn, Stephy Coyle, Luis Walker and colleagues, with an educational tino from [employer]. Physical exam (Primary Care) Vital Signs: Last Vital Signs Pulse 60 01/06/24 11:25 BP 148/62 H 01/06/24 11:25 Pulse Ox 97 01/06/24 11:25 Oxygen Delivery Method Room Air 01/06/24 11:25 BMI result Body Mass Index 29.1 Tobacco/Smoking Status: Tobacco use Status Tobacco use date assessed 11/01/23 01/06/24 11:27 Patient Tobacco Use Status Former Tobacco user 01/06/24 11:27 Tobacco use type Cigarette 01/06/24 11:27 e-Cigarette/Vaping Use Never Used 01/06/24 11:27 Thrive Assessment: Date of Thrive Assessment Date Thrive assessed 07/16/23 01/06/24 11:27 Const Other: awake alert NAD RRR 2/6 systolic murmur LS dim throughout Bilateral lower extremities hairless, nonpalpable pedal pulses, +1 edema LLE, RLE with trace edema. Skin intact & warm to touch. Assessment and Plan Assessment & Plan (1) Edema of left lower extremity: Code(s): R60.0 - Localized edema (2) HTN (hypertension): Code(s): I10 - Essential (primary) hypertension Qualifiers: Hypertension type: unspecified Qualified Code(s): I10 - Essential (primary) hypertension (3) Hyponatremia: Code(s): E87.1 - Hypo-osmolality and hyponatremia (4) Hypothyroidism: Comment: check labs Code(s): E03.9 - Hypothyroidism, unspecified Qualifiers: Hypothyroidism type: acquired Qualified Code(s): E03.9 - Hypothyroidism, unspecified (5) IFG (impaired fasting glucose): Comment: check cmp and hga1c before next visit Code(s): R73.01 - Impaired fasting glucose (6) CAD (coronary artery disease), [place] coronary artery: Comment: on ASA. RX for rosuvastatin 10mg prescribed. Repeat lipid panel 09/2023. Total cholesterol 137, LDL 55, HDL 68, triglycerides 70, at goal. Cont. rosuvastatin & Smoking cessation Code(s): I25.10 - Atherosclerotic heart disease of [place] coronary artery without angina pectoris Qualifiers: [place] vs. transplanted heart: [place] heart Associated angina: without angina Qualified Code(s): I25.10 - Atherosclerotic heart disease of [place] coronary artery without angina pectoris Orders: Orders TSH reflex Free T4 03/24/24 E03.9 - Hypothyroidism, unspecified, I25.10 - Atherosclerotic heart disease of [place] coronary artery without angina pectoris, R73.01 - Impaired fasting glucose Hemoglobin A1c 03/24/24 E03.9 - Hypothyroidism, unspecified, I25.10 - Atherosclerotic heart disease of [place] coronary artery without angina pectoris, R73.01 - Impaired fasting glucose Lipid Panel 03/24/24 E03.9 - Hypothyroidism, unspecified, I25.10 - Atherosclerotic heart disease of [place] coronary artery without angina pectoris, R73.01 - Impaired fasting glucose Medications: New losartan 100 mg PO DAILY 90 tabs 0RF Discontinued losartan-hydrochlorothiazide 100-12.5 mg Discontinued Reason: Doctor's Order 1 tab PO DAILY 90 tabs 0RF Coding Level of Care Code Est Pt Level 5 (83793) Complex EM visit Add On G2211 Diagnoses Edema of left lower extremity R60.0 Hypertension, unspecified type I10 Hypertension type: unspecified Hyponatremia E87.1 Acquired hypothyroidism E03.9 Hypothyroidism type: acquired IFG (impaired fasting glucose) R73.01 Coronary artery disease involving [place] coronary artery of [place] heart without angina pectoris I25.10 [place] vs. transplanted heart: [place] heart Associated angina: without angina
[2024-01-06 11:25] VITALS: BP 148/62; PULSE 60; O2SAT 97; BMI 29.1
== END 2024-01-06 12:08 | disposition home or self-care (01) ==
PROVIDERS: PCP Nurse Practitioner Family; Visit Provider Nurse Practitioner Family
DX: R60.0 Localized edema (principal); I10 Essential (primary) hypertension; E87.1 Hypo-osmolality and hyponatremia; E03.9 Hypothyroidism, unspecified; R73.01 Impaired fasting glucose; I25.10 Atherosclerotic heart disease of native coronary artery without angina pectoris
CPT/HCPCS: 99215; G2211

== ENCOUNTER 2024-01-14 14:00 | Outpatient (AMB) | payer MEDICARE, SELFPAY ==
[2024-01-14 14:01] VITALS: BP 184/90; PULSE 72; O2SAT 99; BMI 29.0
--- NOTE | 2024-01-14 14:01 | HO.NEPHOV ---
Vital Signs 01/14/24 14:01 Height 5 ft 6 in Weight 180 lb BMI 29.0 BP 184/90 H Blood Pressure Location Lt brachial Position Sitting Pulse 72 Pulse Source Pulse Oximeter Pulse Oximetry (%) 99 Oxygen Delivery Method Room Air Intake Visit Reasons: CKD/ HTN/ Atrophy of Kidney/ Conf Physical Security Engineer Required: No Accompanied by: Self / Same As Patient Allergies codeine Allergy (Unknown, Verified 01/14/24 14:03) Unknown Medication List - Last Reconciled 01/14/24 by Nilay Spencer MD albuterol sulfate 90 mcg/actuation 2 puffs PO Q4-6H PRN aliskiren (Tekturna) 150 mg PO DAILY amlodipine 10 mg PO DAILY aspirin (Adult Low Dose Aspirin) 81 mg PO DAILY atenolol 50 mg PO BID 90 days bupropion HCl SR 200 mg PO QAM clonidine HCl 0.3 mg PO BID fluticasone propion-salmeterol 250-50 mcg/dose 1 ea PO BID fluticasone propionate 50 mcg/actuation (Flonase Allergy Relief) 2 sprays intranasal DAILY PRN gabapentin 600 mg PO BID ipratropium-albuterol 0.5 mg-3 mg(2.5 mg base)/3 mL 3 mL inhalation QID PRN 30 days ipratropium-albuterol 20-100 mcg/actuation (Combivent Respimat) 1 puff inhalation QID 30 days levothyroxine 50 mcg PO DAILY losartan 100 mg PO DAILY nebulizer accessories Use nebulizer q 6 hrs prn wheezing, sob, cough DX: COPD nebulizers Use nebulizer q 6 hrs prn wheezing, sob, cough DX: COPD nystatin 5 mL PO TID 10 days omeprazole 20 mg PO BID rivaroxaban (Xarelto) 2.5 mg PO BID rosuvastatin 10 mg PO DAILY sertraline 100 mg PO DAILY HPI Comments Details: . Myrtle is a pleasant middle-aged woman with a history of resistant hypertension setting of severe vascular disease. She has undergone multiple stents in lower extremities and iliac arteries. She has atrophic left kidney with left renal artery stenosis. She is on multiple antihypertensive medications blood pressure is still suboptimal and hence this referral. She has underlying CKD with a serum creatinine around 1.4-1.6 mg/dL. She has a history of smoking for several years. She quit smoking about 6 months ago. She was on losartan hydrochlorothiazide. Due to hyponatremia of 130 millimoles per L hydrochlorothiazide has been discontinued recently. 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 Arthritis of left hip Disc degeneration, lumbar Lumbar facet arthropathy Stenosis, spinal, lumbar Sacroiliac joint pain Lumbar radicular pain Rhinitis Hypothyroidism Anxiety Tachycardia Cough COPD (chronic obstructive pulmonary disease) Smoker Surgical History No pertinent past surgical history Social History Household Members: Children Household Members Other:: daughter Housing: House Are you a primary childcare teacher to a significant other at home: No Do you presently have visiting nurse or other home services: No 75 years or older and lives alone: No Alcohol intake: current Alcohol intake frequency: holidays/special occasions only Alcohol type: beer Patient Tobacco Use Status: Former Tobacco user Tobacco use type: Cigarette Cigarette Packs Per Day: 0 Cigarettes Per Day: 2 e-Cigarette/Vaping Use: Never Used Current occupational status: retired Current occupation: right handed, retired Sexual orientation: Unable to collect Gender identity: Unable to collect Cognitive needs: No Hearing needs: No Vision needs: Yes (wears glasses to drive.) Review of Systems Const Denies fever(s) and Denies weight loss Card Denies chest pain Resp Denies cough and Denies hemoptysis GI Denies abdominal pain, Denies diarrhea and Denies nausea Neuro Denies focal weakness Physical Exam Vital Signs: Last Vital Signs Pulse 72 01/14/24 14:01 BP 184/90 H 01/14/24 14:01 Pulse Ox 99 01/14/24 14:01 Oxygen Delivery Method Room Air 01/14/24 14:01 BMI result Body Mass Index 29.0 Repeat blood pressure 180/80 in both upper extremities. No orthostatic changes. Const General: comfortable; No acute distress Orientation/consciousness: patient oriented x3 Eyes General: appearance normal, both eyes and all related structures Visual Cronin: normal visual cronin by confrontation Neck Neck: Yes supple and Yes no JVD Resp Effort & Inspection: normal respiratory effort and respiratory effort not decreased Auscultation: rhonchi Cardio Palpation: no palpable S3 and no palpable S4 Heart sounds: no rubs GI Inspection: Yes normal to inspection Palpation (GI): Soft to palpation Percussion: Yes normal to percussion Auscultation: normal bowel sounds General: Yes no CVA tenderness Back/Spine/Pelvis Back: no CVA tenderness Skin General skin exam: no petechiae and no purpura Neuro General: patient oriented x3 and no focal motor deficits Extrem General: No clubbing and No edema Results Reviewed Nephrology Results: Hgb 12.1 g/dl (12.0-16.0) 10/01/23 WBC 4.2 X10*3/uL (4.8-10.8) L 10/01/23 Plt Count 135 X10*3/uL (160-400) L 10/01/23 Sodium 130 mmol/L (135-145) L 12/19/23 Potassium 3.7 mmol/L (3.3-5.1) 12/19/23 Chloride 95 mmol/L (96-108) L 12/19/23 Carbon Dioxide 24 mmol/L (22-29) 12/19/23 BUN 27 mg/dL (9-16) H 12/19/23 Creatinine 1.41 mg/dL (0.5-1.4) H 12/19/23 Calcium 9.4 mg/dL (8.4-10.2) 12/19/23 Phosphorus 3.3 mg/dL (2.7-4.5) 10/01/23 PTH Intact 114.7 pg/mL (8.7-77.1) H 10/01/23 Urine Protein Negative mg/dL (Neg-Trace) 11/01/23 Urine Creatinine 43.14 mg/dL 11/01/23 Assessment & Plan Assessment & Plan (1) CKD (chronic kidney disease) stage 3, GFR 30-59 ml/min: Comment: 08/2022 gfr 44 cr 1.23; 07/11/23 Bun 21 cr 1.63 egfr 32 stable avoid nephrotoxic agents. Atrophic left kidney noted on imaging July 2023 done by vascular 09/2023 elevated parathyroid hormone 114.7, vitamin-D & Ca WNL, BUN 25, creatinine 1.43, GFR 37 Code(s): N18.30 - Chronic kidney disease, stage 3 unspecified Category: Medical Qualifiers: Chronic kidney disease stage 3 subtype: stage 3b (GFR 30-44) Qualified Code(s): N18.32 - Chronic kidney disease, stage 3b (2) Renal atrophy, left: Comment: see CKD Code(s): N26.1 - Atrophy of kidney (terminal) Category: Medical (3) Hyponatremia: Code(s): E87.1 - Hypo-osmolality and hyponatremia Category: Medical Plan Pat has CKD 3 due to underlying renovascular disease. She has atrophic left kidney with significant left renal artery stenosis. Resistant hypertension is probably due to underlying renal artery stenosis. Hyponatremia most likely due to the use of HCTZ leading to decreased free water clearance. Plan Stay on low-sodium diet Keep current medications for now. I will add Tekturna to see if we can optimize blood pressure. She is on high dose of clonidine with associated side effects. Based on the blood pressure we will try to gradually taper clonidine. She is currently on losartan. With a combination of both losartan and Tekturna we will closely monitor serum potassium and creatinine. The goal is to achieve a target systolic blood pressure 140 mm Hg for now. Avoid aggressive lowering of blood pressure or hypotension. Orders: Orders US renal BI Today Nilay Spencer MD E87.1 - Hypo-osmolality and hyponatremia, N18.32 - Chronic kidney disease, stage 3b, N26.1 - Atrophy of kidney (terminal) Aldosterone 1 Day Nilay Spencer MD N18.32 - Chronic kidney disease, stage 3b, N26.1 - Atrophy of kidney (terminal) Aldost/Renin 1 Day Nilay Spencer MD N18.32 - Chronic kidney disease, stage 3b, N26.1 - Atrophy of kidney (terminal) Basic Metabolic Panel 1 Day Nilay Spencer MD N18.32 - Chronic kidney disease, stage 3b, N26.1 - Atrophy of kidney (terminal) Renin 1 Day Nilay Spencer MD N18.32 - Chronic kidney disease, stage 3b, N26.1 - Atrophy of kidney (terminal) Medications: New aliskiren (Tekturna) 150 mg PO DAILY 30 tabs 1RF Nilay Spencer MD Changed From fluticasone propionate 50 mcg/actuation (Flonase Allergy Relief) administer into each nostril 2 sprays intranasal DAILY 30 days 16 grams 3RF Allergic Rhinitis To fluticasone propionate 50 mcg/actuation (Flonase Allergy Relief) administer into each nostril 2 sprays intranasal DAILY PRN Eddie Alvarenga MD Coding Level of Care Code New Pt Level 4 (42984) Diagnoses Stage 3b chronic kidney disease N18.32 Chronic kidney disease stage 3 subtype: stage 3b (GFR 30-44) Renal atrophy, left N26.1 Hyponatremia E87.1
== END 2024-01-14 14:33 | disposition home or self-care (01) ==
PROVIDERS: PCP Nurse Practitioner Family; Referring Provider Nurse Practitioner Family; Visit Provider Internal Medicine Hypertension Specialist
DX: N18.32 Chronic kidney disease, stage 3b (principal); N26.1 Atrophy of kidney (terminal); E87.1 Hypo-osmolality and hyponatremia
CPT/HCPCS: 99204

== ENCOUNTER → 2024-01-14 14:00 | Outpatient (BNVA) | payer MEDICARE, SELFPAY | PROVIDERS: PCP Nurse Practitioner Family; Referring Provider Nurse Practitioner Family; Visit Provider Internal Medicine Hypertension Specialist | DX: N18.32 Chronic kidney disease, stage 3b (principal); N26.1 Atrophy of kidney (terminal); E87.1 Hypo-osmolality and hyponatremia | CPT/HCPCS: 99202 ==

== ENCOUNTER 2024-01-15 11:34 | Outpatient (REF) | payer MEDICARE, SELFPAY ==
[2024-01-15 14:19] LABS: Anion Gap 14 (12-20); Blood Urea Nitrogen 25 mg/dL (9-16); Calcium 9.2 mg/dL (8.4-10.2); Carbon Dioxide 23 mmol/L (22-29); Chloride 108 mmol/L (96-108); Estimated Glomerular Filt Rate 42; Glucose Random 103 mg/dL (60-115); Potassium 4.7 mmol/L (3.3-5.1); Sodium 140 mmol/L (135-145)
[2024-01-19 13:27] LABS: Aldosterone/Renin Ratio 0.7 Ratio (0.9-28.9); Plasma Renin Activity 4.33 ng/mL/h (0.25-5.82)
[2024-01-20 12:24] LABS: Renin 4.29 ng/mL/h (0.25-5.82)
== END 2024-01-15 11:35 | disposition home or self-care (01) ==
LOC: HO.LAB 11:34
PROVIDERS: PCP Nurse Practitioner Family; Visit Provider Internal Medicine Hypertension Specialist
DX: N26.1 Atrophy of kidney (terminal) (principal); N18.32 Chronic kidney disease, stage 3b
CPT/HCPCS: 36415; 80048; 82088; 84244

== ENCOUNTER 2024-01-29 12:09 | Outpatient (REF) | payer MEDICARE, SELFPAY ==
--- NOTE | ~2024-01-29 | US_ITS ---
EXAMINATION: US RETROPERITONEAL LIMITED (RENAL ONLY) CLINICAL INFORMATION: Hypo-osmolality and hyponatremia. COMPARISON: None available. TECHNIQUE: Real-time imaging of the kidneys. Technically limited study secondary to bowel gas. FINDINGS: RIGHT KIDNEY: 11.5 x 4.1 x 4.4 cm (SAG x AP x TRV). No hydronephrosis. No renal calculi. Renal cortical thickness is normal. Limited visualization. LEFT KIDNEY: Not visualized. US/US renal BI IMPRESSION: 1. Left kidney not visualized. 2. Right kidney grossly unremarkable, but visualization limited.
== END 2024-01-29 12:10 | disposition home or self-care (01) ==
LOC: HO.US 12:09
PROVIDERS: PCP Nurse Practitioner Family; Visit Provider Internal Medicine Hypertension Specialist
DX: E87.1 Hypo-osmolality and hyponatremia (principal); N26.1 Atrophy of kidney (terminal); N18.32 Chronic kidney disease, stage 3b
CPT/HCPCS: 76775

== ENCOUNTER 2024-02-13 10:07 | Outpatient (REF) | payer MEDICARE, SELFPAY ==
[2024-02-13 12:37] LABS: Anion Gap 18 (12-20); Blood Urea Nitrogen 37 mg/dL (9-16); Calcium 9.6 mg/dL (8.4-10.2); Carbon Dioxide 19 mmol/L (22-29); Chloride 109 mmol/L (96-108); Estimated Glomerular Filt Rate 29; Glucose Random 104 mg/dL (60-115); Potassium 4.9 mmol/L (3.3-5.1); Sodium 141 mmol/L (135-145)
== END 2024-02-13 10:08 | disposition home or self-care (01) ==
LOC: HO.LAB 10:07
PROVIDERS: PCP Nurse Practitioner Family; Visit Provider Internal Medicine Hypertension Specialist
DX: N26.1 Atrophy of kidney (terminal) (principal); N18.32 Chronic kidney disease, stage 3b; E87.1 Hypo-osmolality and hyponatremia
CPT/HCPCS: 36415; 80048; 99212

== ENCOUNTER 2024-02-13 10:07 | Outpatient (AMB) | payer MEDICARE, SELFPAY ==
[2024-02-13 10:09] VITALS: BP 176/82; PULSE 71; O2SAT 98; BMI 29.4
--- NOTE | 2024-02-13 10:09 | HO.NEPHOV ---
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: No Accompanied by: Self / Same As Patient Allergies codeine Allergy (Unknown, Verified 02/13/24 10:11) Unknown Medication List - Last Reconciled 02/13/24 by Nilay Spencer MD albuterol sulfate 90 mcg/actuation 2 puffs PO Q4-6H PRN aliskiren 150 mg PO DAILY amlodipine 10 mg PO DAILY aspirin (Adult Low Dose Aspirin) 81 mg PO DAILY atenolol 50 mg PO BID 90 days bupropion HCl SR 200 mg PO QAM clonidine HCl 0.3 mg PO BID fluticasone propion-salmeterol 250-50 mcg/dose 1 ea PO BID fluticasone propionate 50 mcg/actuation (Flonase Allergy Relief) 2 sprays intranasal DAILY PRN gabapentin 600 mg PO BID ipratropium-albuterol 0.5 mg-3 mg(2.5 mg base)/3 mL 3 mL inhalation QID PRN 30 days ipratropium-albuterol 20-100 mcg/actuation (Combivent Respimat) 1 puff inhalation QID 30 days levothyroxine 50 mcg PO DAILY losartan 100 mg PO DAILY nebulizer accessories Use nebulizer q 6 hrs prn wheezing, sob, cough DX: COPD nebulizers Use nebulizer q 6 hrs prn wheezing, sob, cough DX: COPD nystatin 5 mL PO TID 10 days omeprazole 20 mg PO BID rivaroxaban (Xarelto) 2.5 mg PO BID rosuvastatin 10 mg PO DAILY sertraline 100 mg PO DAILY 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 Arthritis of left hip Disc degeneration, lumbar Lumbar facet arthropathy Stenosis, spinal, lumbar Sacroiliac joint pain Lumbar radicular pain Rhinitis Hypothyroidism Anxiety Tachycardia Cough COPD (chronic obstructive pulmonary disease) Smoker Surgical History No pertinent past surgical history Social History (Reviewed 02/13/24 @ 10:10 by LOKI Tineo Household Members: Children Household Members Other:: daughter Housing: House Are you a primary hospice care transitions coordinator to a significant other at home: No Do you presently have visiting nurse or other home services: No 75 years or older and lives alone: No Alcohol intake: current Alcohol intake frequency: holidays/special occasions only Alcohol type: beer Patient Tobacco Use Status: Former Tobacco user Tobacco use type: Cigarette Cigarette Packs Per Day: 0 Cigarettes Per Day: 2 e-Cigarette/Vaping Use: Never Used Current occupational status: retired Current occupation: right handed, retired Sexual orientation: Unable to collect Gender identity: Unable to collect Cognitive needs: No Hearing needs: No Vision needs: Yes (wears glasses to drive.) Physical Exam Vital Signs: Last Vital Signs Pulse 71 02/13/24 10:09 BP 176/82 H 02/13/24 10:09 Pulse Ox 98 02/13/24 10:09 Oxygen Delivery Method Room Air 02/13/24 10:09 BMI result Body Mass Index 29.4 Repeat blood pressure 180/80 in both upper extremities. No orthostatic changes. Const General: comfortable; No acute distress Orientation/consciousness: patient oriented x3 Eyes General: appearance normal, both eyes and all related structures Visual Cronin: normal visual cronin by confrontation Neck Neck: Yes supple and Yes no JVD Resp Effort & Inspection: normal respiratory effort and respiratory effort not decreased Auscultation: rhonchi Cardio Palpation: no palpable S3 and no palpable S4 Heart sounds: no rubs GI Inspection: Yes normal to inspection Palpation (GI): Soft to palpation Percussion: Yes normal to percussion Auscultation: normal bowel sounds General: Yes no CVA tenderness Back/Spine/Pelvis Back: no CVA tenderness Skin General skin exam: no petechiae and no purpura Neuro General: patient oriented x3 and no focal motor deficits Extrem General: No clubbing and No edema Results Reviewed Nephrology Results: Sodium 140 mmol/L (135-145) 01/15/24 Potassium 4.7 mmol/L (3.3-5.1) 01/15/24 Chloride 108 mmol/L (96-108) 01/15/24 Carbon Dioxide 23 mmol/L (22-29) 01/15/24 BUN 25 mg/dL (9-16) H 01/15/24 Creatinine 1.28 mg/dL (0.5-1.4) 01/15/24 Calcium 9.2 mg/dL (8.4-10.2) 01/15/24 Urine Protein Negative mg/dL (Neg-Trace) 11/01/23 Urine Creatinine 43.14 mg/dL 11/01/23 Renal US 01/29/24 Assessment & Plan Assessment & Plan (1) Renal atrophy, left: Comment: see CKD Code(s): N26.1 - Atrophy of kidney (terminal) Category: Medical (2) CKD (chronic kidney disease) stage 3, GFR 30-59 ml/min: Comment: 08/2022 gfr 44 cr 1.23; 07/11/23 Bun 21 cr 1.63 egfr 32 stable avoid nephrotoxic agents. Atrophic left kidney noted on imaging July 2023 done by vascular 09/2023 elevated parathyroid hormone 114.7, vitamin-D & Ca WNL, BUN 25, creatinine 1.43, GFR 37 Code(s): N18.30 - Chronic kidney disease, stage 3 unspecified Category: Medical Qualifiers: Chronic kidney disease stage 3 subtype: stage 3b (GFR 30-44) Qualified Code(s): N18.32 - Chronic kidney disease, stage 3b (3) Hyponatremia: Code(s): E87.1 - Hypo-osmolality and hyponatremia Category: Medical Plan Pat has CKD 3 due to underlying renovascular disease. She has atrophic left kidney with significant left renal artery stenosis. Resistant hypertension is probably due to underlying renal artery stenosis. Hyponatremia most likely due to the use of HCTZ leading to decreased free water clearance. Plan Stay on low-sodium diet Keep current medications for now. Keep Tekturna to see if we can optimize blood pressure. ADD BUMEX 0.5 mg - HALF tab a day She is on high dose of clonidine with associated side effects. Based on the blood pressure we will try to gradually taper clonidine. She is currently on losartan. With a combination of both losartan and Tekturna we will closely monitor serum potassium and creatinine. The goal is to achieve a target systolic blood pressure 140 mm Hg for now. Avoid aggressive lowering of blood pressure or hypotension. Orders: Orders Basic Metabolic Panel 1 Month N18.32 - Chronic kidney disease, stage 3b Basic Metabolic Panel Today N26.1 - Atrophy of kidney (terminal) Medications: New bumetanide 0.25 mg (1/2 x 0.5 mg) PO DAILY 30 tabs 0RF Coding Level of Care Code Est Pt Level 4 (80594) Complex EM visit Add On G2211 Diagnoses Renal atrophy, left N26.1 Stage 3b chronic kidney disease N18.32 Chronic kidney disease stage 3 subtype: stage 3b (GFR 30-44) Hyponatremia E87.1
== END 2024-02-13 10:24 | disposition home or self-care (01) ==
PROVIDERS: PCP Nurse Practitioner Family; Visit Provider Internal Medicine Hypertension Specialist
DX: N26.1 Atrophy of kidney (terminal) (principal); N18.32 Chronic kidney disease, stage 3b; E87.1 Hypo-osmolality and hyponatremia
CPT/HCPCS: 99214; G2211

== ENCOUNTER 2024-03-04 10:46 | Outpatient (REF) | payer MEDICARE, SELFPAY ==
[2024-03-04 14:38] LABS: Estimated Average Glucose 91 mg/dL; Hemoglobin A1c % 4.8 % (<6.0)
[2024-03-04 15:15] LABS: Anion Gap 14 (12-20); Blood Urea Nitrogen 55 mg/dL (9-16); Calcium 9.2 mg/dL (8.4-10.2); Carbon Dioxide 22 mmol/L (22-29); Chloride 108 mmol/L (96-108); Cholesterol 93 mg/dL (<200); Estimated Glomerular Filt Rate 20; Glucose Random 114 mg/dL (60-115); HDL Cholesterol 32 mg/dL (>40); LDL Cholesterol Calculated 47 mg/dL (<100); Potassium 5.1 mmol/L (3.3-5.1); Sodium 139 mmol/L (135-145); Triglycerides 74 mg/dL (<150)
[2024-03-04 15:24] LABS: TSH reflex Free T4 6.85 uIU/mL (0.32-4.0)
[2024-03-04 16:04] LABS: Free T4 (Free Thyroxine) 1.02 ng/dL (0.71-1.85)
== END 2024-03-04 10:47 | disposition home or self-care (01) ==
LOC: HO.WFDLDS 10:46
PROVIDERS: Referring Provider Internal Medicine Hypertension Specialist; Visit Provider Nurse Practitioner Family
DX: N18.32 Chronic kidney disease, stage 3b (principal); E03.9 Hypothyroidism, unspecified; R73.01 Impaired fasting glucose; I25.10 Atherosclerotic heart disease of native coronary artery without angina pectoris
CPT/HCPCS: 36415; 80048; 80061; 83036; 84439; 84443

== ENCOUNTER 2024-03-12 10:51 | Outpatient (AMB) | payer MEDICARE, SELFPAY ==
--- NOTE | 2024-03-12 10:53 | HO.NEPHOV ---
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 Accompanied by: Self / Same As Patient Allergies codeine Allergy (Unknown, Verified 03/12/24 10:57) Unknown Medication List - Last Reconciled 03/12/24 by Nilay Spencer MD albuterol sulfate 90 mcg/actuation 2 puffs PO Q4-6H PRN aliskiren 150 mg PO DAILY amlodipine 10 mg PO DAILY aspirin (Adult Low Dose Aspirin) 81 mg PO DAILY atenolol 50 mg PO BID 90 days bumetanide 0.25 mg (1/2 x 0.5 mg) PO DAILY bupropion HCl SR 200 mg PO QAM clonidine HCl 0.3 mg PO BID fluticasone propion-salmeterol 250-50 mcg/dose 1 ea PO BID fluticasone propionate 50 mcg/actuation (Flonase Allergy Relief) 2 sprays intranasal DAILY PRN gabapentin 600 mg PO BID ipratropium-albuterol 0.5 mg-3 mg(2.5 mg base)/3 mL 3 mL inhalation QID PRN 30 days ipratropium-albuterol 20-100 mcg/actuation (Combivent Respimat) 1 puff inhalation QID 30 days levothyroxine 50 mcg PO DAILY losartan 100 mg PO DAILY nebulizer accessories Use nebulizer q 6 hrs prn wheezing, sob, cough DX: COPD nebulizers Use nebulizer q 6 hrs prn wheezing, sob, cough DX: COPD nystatin 5 mL PO TID 10 days omeprazole 20 mg PO BID rivaroxaban (Xarelto) 2.5 mg PO BID rosuvastatin 10 mg PO DAILY sertraline 100 mg PO DAILY HPI Comments Details: . Myrtle is a pleasant middle-aged woman with a history of resistant hypertension setting of severe vascular disease. She has undergone multiple stents in lower extremities and iliac arteries. She has atrophic left kidney with left renal artery stenosis. She is on multiple antihypertensive medications blood pressure is still suboptimal and hence this referral. She has underlying CKD with a serum creatinine around 1.4-1.6 mg/dL. She has a history of smoking for several years. She quit smoking about 6 months ago. She was on losartan hydrochlorothiazide. Due to hyponatremia of 130 millimoles per L hydrochlorothiazide has been discontinued recently. 03/12/24. She was given Bumex 0.25 mg half a tablet a day. She continues to feel tired. Recently creatinine is bumped up to 2.37. Home blood pressure readings were reviewed and systolic blood pressure is between 150 and 170 mm Hg. 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 Arthritis of left hip Disc degeneration, lumbar Lumbar facet arthropathy Stenosis, spinal, lumbar Sacroiliac joint pain Lumbar radicular pain Rhinitis Hypothyroidism Anxiety Tachycardia Cough COPD (chronic obstructive pulmonary disease) Smoker Surgical History No pertinent past surgical history Social History Household Members: Children Household Members Other:: daughter Housing: House Are you a primary resident care director to a significant other at home: No Do you presently have visiting nurse or other home services: No 75 years or older and lives alone: No Alcohol intake: current Alcohol intake frequency: holidays/special occasions only Alcohol type: beer Patient Tobacco Use Status: Former Tobacco user Tobacco use type: Cigarette Cigarette Packs Per Day: 0 Cigarettes Per Day: 2 e-Cigarette/Vaping Use: Never Used Current occupational status: retired Current occupation: right handed, retired Sexual orientation: Unable to collect Gender identity: Unable to collect Cognitive needs: No Hearing needs: No Vision needs: Yes (wears glasses to drive.) Physical Exam Vital Signs: Last Vital Signs Pulse 65 03/12/24 10:54 BP 164/66 H 03/12/24 10:54 Pulse Ox 99 03/12/24 10:54 Oxygen Delivery Method Room Air 03/12/24 10:54 BMI result Body Mass Index 28.7 Const General: comfortable; No acute distress Orientation/consciousness: patient oriented x3 Eyes General: appearance normal, both eyes and all related structures Visual Cronin: normal visual cronin by confrontation Neck Neck: Yes supple and Yes no JVD Resp Effort & Inspection: normal respiratory effort and respiratory effort not decreased Auscultation: rhonchi Cardio Palpation: no palpable S3 and no palpable S4 Heart sounds: no rubs GI Inspection: Yes normal to inspection Palpation (GI): Soft to palpation Percussion: Yes normal to percussion Auscultation: normal bowel sounds General: Yes no CVA tenderness Back/Spine/Pelvis Back: no CVA tenderness Skin General skin exam: no petechiae and no purpura Neuro General: patient oriented x3 and no focal motor deficits Extrem General: No clubbing and No edema Results Reviewed Nephrology Results: Sodium 139 mmol/L (135-145) 03/04/24 Potassium 5.1 mmol/L (3.3-5.1) 03/04/24 Chloride 108 mmol/L (96-108) 03/04/24 Carbon Dioxide 22 mmol/L (22-29) 03/04/24 BUN 55 mg/dL (9-16) H 03/04/24 Creatinine 2.37 mg/dL (0.5-1.4) H 03/04/24 Calcium 9.2 mg/dL (8.4-10.2) 03/04/24 Urine Protein Negative mg/dL (Neg-Trace) 11/01/23 Urine Creatinine 43.14 mg/dL 11/01/23 Renal US 01/29/24 Assessment & Plan Assessment & Plan (1) Renal atrophy, left: Comment: see CKD Code(s): N26.1 - Atrophy of kidney (terminal) Category: Medical (2) CKD (chronic kidney disease) stage 3, GFR 30-59 ml/min: Comment: 08/2022 gfr 44 cr 1.23; 07/11/23 Bun 21 cr 1.63 egfr 32 stable avoid nephrotoxic agents. Atrophic left kidney noted on imaging July 2023 done by vascular 09/2023 elevated parathyroid hormone 114.7, vitamin-D & Ca WNL, BUN 25, creatinine 1.43, GFR 37 Code(s): N18.30 - Chronic kidney disease, stage 3 unspecified Category: Medical Qualifiers: Chronic kidney disease stage 3 subtype: stage 3b (GFR 30-44) Qualified Code(s): N18.32 - Chronic kidney disease, stage 3b (3) Hyponatremia: Code(s): E87.1 - Hypo-osmolality and hyponatremia Category: Medical Plan Pat has CKD 3 due to underlying renovascular disease. She has atrophic left kidney with significant left renal artery stenosis. Resistant hypertension is probably due to underlying renal artery stenosis. Hyponatremia most likely due to the use of HCTZ leading to decreased free water clearance. Plan Stay on low-sodium diet Keep current medications for now. Keep Tekturna to see if we can optimize blood pressure. Discontinue BUMEX 0.5 mg - HALF tab a day Discontinue losartan Add hydralazine 25 mg PO TID to optimize blood pressure Recheck renal panel in the next 1-2 weeks. If she has no improvement renal function we might have to discontinue Tekturna as well and refer for intervention regarding the renal artery stenosis She is on high dose of clonidine with associated side effects. Based on the blood pressure we will try to gradually taper clonidine. The goal is to achieve a target systolic blood pressure 140 mm Hg for now. Avoid aggressive lowering of blood pressure or hypotension. Orders: Orders Basic Metabolic Panel 2 Weeks N18.32 - Chronic kidney disease, stage 3b, N26.1 - Atrophy of kidney (terminal) Medications: New hydralazine 25 mg PO TID 90 tabs 1RF Discontinued losartan Discontinued Reason: Doctor's Order 100 mg PO DAILY 90 tabs 0RF bumetanide Discontinued Reason: Doctor's Order 0.25 mg (1/2 x 0.5 mg) PO DAILY 45 tabs 0RF Coding Level of Care Code Est Pt Level 4 (36541) Diagnoses Renal atrophy, left N26.1 Stage 3b chronic kidney disease N18.32 Chronic kidney disease stage 3 subtype: stage 3b (GFR 30-44) Hyponatremia E87.1
[2024-03-12 10:54] VITALS: BP 164/66; PULSE 65; O2SAT 99; BMI 28.7
== END 2024-03-12 11:23 | disposition home or self-care (01) ==
PROVIDERS: PCP Nurse Practitioner Family; Visit Provider Internal Medicine Hypertension Specialist
DX: N26.1 Atrophy of kidney (terminal) (principal); N18.32 Chronic kidney disease, stage 3b; E87.1 Hypo-osmolality and hyponatremia
CPT/HCPCS: 99214

== ENCOUNTER → 2024-03-12 10:51 | Outpatient (BNVA) | payer MEDICARE, SELFPAY | PROVIDERS: PCP Nurse Practitioner Family; Visit Provider Internal Medicine Hypertension Specialist | DX: N26.1 Atrophy of kidney (terminal) (principal); I70.1 Atherosclerosis of renal artery; I1A.0 Resistant hypertension; N18.32 Chronic kidney disease, stage 3b; E87.1 Hypo-osmolality and hyponatremia | CPT/HCPCS: 99212 ==

== ENCOUNTER 2024-03-25 16:19 | Outpatient (REF) | payer MEDICARE, SELFPAY ==
[2024-03-25 17:45] LABS: Anion Gap 14 (12-20); Blood Urea Nitrogen 30 mg/dL (9-16); Calcium 9.2 mg/dL (8.4-10.2); Carbon Dioxide 21 mmol/L (22-29); Chloride 109 mmol/L (96-108); Estimated Glomerular Filt Rate 31; Glucose Random 85 mg/dL (60-115); Potassium 4.3 mmol/L (3.3-5.1); Sodium 140 mmol/L (135-145)
== END 2024-03-25 16:20 | disposition home or self-care (01) ==
LOC: HO.LAB 16:19
PROVIDERS: PCP Nurse Practitioner Family; Visit Provider Internal Medicine Hypertension Specialist
DX: N26.1 Atrophy of kidney (terminal) (principal); N18.32 Chronic kidney disease, stage 3b
CPT/HCPCS: 36415; 80048

== ENCOUNTER 2024-04-01 13:42 | Outpatient (AMB) | payer MEDICARE, SELFPAY ==
[2024-04-01 13:47] VITALS: BP 122/80; PULSE 64; O2SAT 99; BMI 28.6
--- NOTE | 2024-04-01 13:47 | A.OFFVIS_ITS ---
Vital Signs 04/01/24 13:47 Height 5 ft 6 in Weight 177 lb 7.554 oz BMI 28.6 BP 122/80 Blood Pressure Location Lt brachial Position Sitting Pulse 64 Pulse Source Pulse Oximeter Pulse Oximetry (%) 99 Oxygen Delivery Method Room Air Intake Visit Reasons: copd Intake Note: pt is here for follow up and states she is having issues with breathing, she has a lot going on, and will explain. 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 Allergies codeine Allergy (Unknown, Verified 04/01/24 14:00) Unknown Medication List - Last Reconciled 04/01/24 by Eddie Alavrenga MD albuterol sulfate 90 mcg/actuation 2 puffs PO Q4-6H PRN aliskiren 150 mg PO DAILY amlodipine 10 mg PO DAILY aspirin (Adult Low Dose Aspirin) 81 mg PO DAILY atenolol 50 mg PO BID 90 days bupropion HCl SR 200 mg PO QAM clonidine HCl 0.3 mg PO BID fluticasone propionate 50 mcg/actuation (Flonase Allergy Relief) 2 sprays intra nasal DAILY PRN gabapentin 600 mg PO BID hydralazine 25 mg PO TID ipratropium-albuterol 0.5 mg-3 mg(2.5 mg base)/3 mL 3 mL inhalation QID PRN 30 days levothyroxine 50 mcg PO DAILY nebulizer accessories Use nebulizer q 6 hrs prn wheezing, sob, cough DX: COPD nebulizers Use nebulizer q 6 hrs prn wheezing, sob, cough DX: COPD nystatin 5 mL PO TID 10 days omeprazole 20 mg PO BID rivaroxaban (Xarelto) 2.5 mg PO BID rosuvastatin 10 mg PO DAILY sertraline 100 mg PO DAILY Do you need a note to return to daycare/school/sports/work: No HPI HPI copd: Details: This 68 years old female with longstanding history of smoking, quit smoking in July 2023, is being followed for chronic obstructive pulmonary disease. Her breathing had improved after quitting smoking but then she is complaining of increasing shortness of breath on minimal exertion. Has only mild intermittent cough without any expectoration. Denies any wheezing. She uses albuterol HFA or albuterol solution in the nebulizer p.r.n., and says that is the only thing which helps her. She does not tolerate the ICS INHALERS because of oral thrush. She also has the chronic renal insufficiency, and advanced vascular disease, does have pain in left lower extremity on walking. She is being followed very closely by the [facility]. She is going to have CT scan of the chest for thoracic aorta and also going to have some vascular studies for lower extremities. 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 Arthritis of left hip Disc degeneration, lumbar Lumbar facet arthropathy Stenosis, spinal, lumbar Sacroiliac joint pain Lumbar radicular pain Rhinitis Hypothyroidism Anxiety Tachycardia Cough COPD (chronic obstructive pulmonary disease) Smoker Surgical History No pertinent past surgical history Social History Household Members: Children Household Members Other:: daughter Housing: House Are you a primary acute care physical therapist to a significant other at home: No Do you presently have visiting nurse or other home services: No 75 years or older and lives alone: No Alcohol intake: current Alcohol intake frequency: holidays/special occasions only Alcohol type: beer Patient Tobacco Use Status: Former Tobacco user Tobacco use type: Cigarette Cigarette Packs Per Day: 0 Cigarettes Per Day: 2 e-Cigarette/Vaping Use: Never Used Current occupational status: retired Current occupation: right handed, retired Sexual orientation: Unable to collect Gender identity: Unable to collect Cognitive needs: No Hearing needs: No Vision needs: Yes (wears glasses to drive.) Review of Systems Const All systems reviewed & are unremarkable except as noted in HPI and below ENT Reports nasal congestion (mild intermittent ) Card Denies chest pain, Reports rapid heart rate and Reports dyspnea (on doing physical work ) Resp Reports cough (mild off and on ) and Reports dyspnea (on doing physical work ) GI Reports heartburn (Controlled with diet and med) Reports no additional complaints Musc Reports myalgias Skin/Breast Reports system reviewed and no additional complaints, except as documented Neuro Reports no additional complaints Psych Reports no additional complaints and Reports anxiety Physical Exam Vital Signs: Last Vital Signs Pulse 64 04/01/24 13:47 BP 122/80 04/01/24 13:47 Pulse Ox 99 04/01/24 13:47 Oxygen Delivery Method Room Air 04/01/24 13:47 BMI result Body Mass Index 28.6 Const General: healthy appearing, comfortable, no acute distress, alert and awake Orientation/consciousness: patient oriented x3 HEENT Head: Yes normal to inspection General nose exam: No nasal polyps present and No nasal discharge present Face and sinus: Yes sinuses nontender Mouth: oropharynx normal Throat: Yes posterior oropharynx normal Eyes General: appearance normal, both eyes and all related structures Neck Neck: Yes normal visual inspection, Yes no lymphadenopathy, Yes trachea midline and Yes no JVD Thyroid: Thyroid normal Chest Chest palpation & inspection: normal inspection of the chest, normal palpation of entire chest wall and no tenderness Resp Effort & Inspection: prolonged expiratory phase Auscultation: no crackles, no rhonchi, no wheezes and diminished lung sounds (With prolonged expiratory phase) Cardio Palpation: normal PMI Rate: regular rate and tachycardic Rhythm: regular rhythm Heart sounds: no gallops and no murmurs Peripheral pulses: Peripheral pulses 2+ throughout GI Palpation (GI): Soft to palpation, nontender, No hepatosplenomegaly present and no masses Auscultation: normal bowel sounds Back/Spine/Pelvis Thoracic/Lumbar Spine: thoracic and lumbar spine normal to inspection Skin General skin exam: no rashes or lesions noted Neuro General: patient oriented x3 and no focal motor deficits Cranial nerves: Yes CN's II-XII intact bilaterally Extrem General: Yes normal to inspection, Yes no clubbing, cyanosis or edema, Yes no calf tenderness and No venous stasis dermatitis Psych Appearance: grossly normal and well kempt Speech and movement: Normal speech and movement present Assessment & Plan Assessment & Plan (1) Smoker: Comment: Lifelong smoker. Stopped smoking! CT scan of the chest in September 2021, negative, She is in the lung screening program but has not come this year Code(s): F17.200 - Nicotine dependence, unspecified, uncomplicated Category: Social Hx Plan: This patient tells me that she is scheduled to have a CT scan of the chest for monitoring the size of the descending aorta , next week It is going to be at [facility]. I will try to get the report of that CT scan. (2) COPD (chronic obstructive pulmonary disease): Comment: COPD with exacerbation resolved status post doxycycline 100 mg p.o. b.i.d.. Continue Laury use. She does not want to use the Advair. She does have the nebulizer at home and uses albuterol in the nebulizer alternating with albuterol HFA, for acute breathing spells. She say is that using albuterol is the only thing which helps her breathing but temporarily. Code(s): J44.9 - Chronic obstructive pulmonary disease, unspecified Category: Medical Qualifiers: COPD type: emphysema Emphysema type: panlobular Qualified Code(s): J43.1 - Panlobular emphysema Plan: I will order ipratropium-albuterol solution to use in the nebulizer 3 times a day regularly, And use albuterol HFA Q 6 hours p.r.n. when outdoors. (3) Cough: Comment: Smoker's cough, and also associated with COPD, mild , it is much better since she quit smoking. Code(s): R05 - Cough Category: Medical Plan: May use OTC cough syrup p.r.n. (4) Rhinitis: Comment: Chronic nasal congestion, secondary to vasomotor vs allergic rhinitis. Code(s): J31.0 - Chronic rhinitis Category: Medical Plan: [place] : Flonase nasal spray 2 spray each nostril daily. Medications: Refilled ipratropium-albuterol 0.5 mg-3 mg(2.5 mg base)/3 mL 3 mL inhalation QID 30 days PRN 180 mL 3RF wheezing J43.1 - Panlobular emphysema Coding Level of Care Code Est Pt Level 3 (15846) Diagnoses Smoker F17.200 Panlobular emphysema J43.1 COPD type: emphysema Emphysema type: panlobular Cough R05 Rhinitis J31.0
== END 2024-04-01 14:14 | disposition home or self-care (01) ==
PROVIDERS: PCP Nurse Practitioner Family; Visit Provider Internal Medicine
DX: F17.200 Nicotine dependence, unspecified, uncomplicated (principal); J43.1 Panlobular emphysema; R05.9 Cough, unspecified; J31.0 Chronic rhinitis
CPT/HCPCS: 99213

== ENCOUNTER → 2024-04-01 13:42 | Outpatient (BNVA) | payer MEDICARE, SELFPAY | PROVIDERS: PCP Nurse Practitioner Family; Visit Provider Internal Medicine | DX: J43.1 Panlobular emphysema (principal); J31.0 Chronic rhinitis; R05.9 Cough, unspecified; F17.210 Nicotine dependence, cigarettes, uncomplicated | CPT/HCPCS: 99212 ==

== ENCOUNTER 2024-04-02 11:17 | Outpatient (AMB) | payer MEDICARE, SELFPAY ==
[2024-04-02 11:30] VITALS: BP 164/70; PULSE 65; O2SAT 99; BMI 28.7
--- NOTE | 2024-04-02 11:30 | HO.NEPHOV_ITS ---
Vital Signs 04/02/24 11:30 Height 5 ft 6 in Weight 178 lb BMI 28.7 BP 164/70 H Blood Pressure Location Rt brachial Position Sitting Pulse 65 Pulse Source Pulse Oximeter Pulse Oximetry (%) 99 Oxygen Delivery Method Room Air Intake Visit Reasons: CKD/ Conf Offset Label Rewinder Required: No Accompanied by: Self / Same As Patient Allergies codeine Allergy (Unknown, Verified 04/02/24 11:32) Unknown HPI Comments Details: . Myrtle is a pleasant middle-aged woman with a history of resistant hypertension setting of severe vascular disease. She has undergone multiple stents in lower extremities and iliac arteries. She has atrophic left kidney with left renal artery stenosis. She is on multiple antihypertensive medications blood pressure is still suboptimal and hence this referral. She has underlying CKD with a serum creatinine around 1.4-1.6 mg/dL. She has a history of smoking for several years. She quit smoking about 6 months ago. She was on losartan hydrochlorothiazide. Due to hyponatremia of 130 millimoles per L hydrochlorothiazide has been discontinued recently. 03/12/24. She was given Bumex 0.25 mg half a tablet a day. She continues to feel tired. Recently creatinine is bumped up to 2.37. Home blood pressure readings were reviewed and systolic blood pressure is between 150 and 170 mm Hg. 04/02/24 Cr has improved after stopping Bumex and Losartan Home BP is elevated PFSH Medical History Personal history of nicotine dependence Urinary frequency Acute bacterial sinusitis 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 Arthritis of left hip Disc degeneration, lumbar Lumbar facet arthropathy Stenosis, spinal, lumbar Sacroiliac joint pain Lumbar radicular pain Rhinitis Hypothyroidism Anxiety Tachycardia Cough COPD (chronic obstructive pulmonary disease) Smoker Surgical History No pertinent past surgical history Social History Household Members: Children Household Members Other:: daughter Housing: House Are you a primary animal care provider to a significant other at home: No Do you presently have visiting nurse or other home services: No 75 years or older and lives alone: No Alcohol intake: current Alcohol intake frequency: holidays/special occasions only Alcohol type: beer Patient Tobacco Use Status: Former Tobacco user Tobacco use type: Cigarette Cigarette Packs Per Day: 0 Cigarettes Per Day: 2 e-Cigarette/Vaping Use: Never Used Current occupational status: retired Current occupation: right handed, retired Sexual orientation: Unable to collect Gender identity: Unable to collect Cognitive needs: No Hearing needs: No Vision needs: Yes (wears glasses to drive.) Physical Exam Vital Signs: Last Vital Signs Pulse 65 04/02/24 11:30 BP 164/70 H 04/02/24 11:30 Pulse Ox 99 04/02/24 11:30 Oxygen Delivery Method Room Air 04/02/24 11:30 BMI result Body Mass Index 28.7 Results Reviewed Nephrology Results: Sodium 140 mmol/L (135-145) 03/25/24 Potassium 4.3 mmol/L (3.3-5.1) 03/25/24 Chloride 109 mmol/L (96-108) H 03/25/24 Carbon Dioxide 21 mmol/L (22-29) L 03/25/24 BUN 30 mg/dL (9-16) H 03/25/24 Creatinine 1.66 mg/dL (0.5-1.4) H 03/25/24 Calcium 9.2 mg/dL (8.4-10.2) 03/25/24 Renal US 01/29/24 Assessment & Plan Assessment & Plan (1) Renal atrophy, left: Comment: see CKD Code(s): N26.1 - Atrophy of kidney (terminal) Category: Medical (2) CKD (chronic kidney disease) stage 3, GFR 30-59 ml/min: Comment: 08/2022 gfr 44 cr 1.23; 07/11/23 Bun 21 cr 1.63 egfr 32 stable avoid nephrotoxic agents. Atrophic left kidney noted on imaging July 2023 done by vascular 09/2023 elevated parathyroid hormone 114.7, vitamin-D & Ca WNL, BUN 25, creatinine 1.43, GFR 37 Code(s): N18.30 - Chronic kidney disease, stage 3 unspecified Category: Medical Qualifiers: Chronic kidney disease stage 3 subtype: stage 3b (GFR 30-44) Qualified Code(s): N18.32 - Chronic kidney disease, stage 3b (3) Hyponatremia: Code(s): E87.1 - Hypo-osmolality and hyponatremia Category: Medical Plan Pat has CKD 3 due to underlying renovascular disease. She has atrophic left kidney with significant left renal artery stenosis. Resistant hypertension is probably due to underlying renal artery stenosis. Hyponatremia most likely due to the use of HCTZ leading to decreased free water clearance. Plan Stay on low-sodium diet Keep current medications for now. Keep Tekturna to optimize blood pressure. Discontinued BUMEX 0.5 mg - HALF tab a day Discontinued losartan INCREASE hydralazine 50 mg PO TID to optimize blood pressure Recheck renal panel in the next 2-3 weeks. If she has no improvement renal function we might have to discontinue Tekturna as well and refer for intervention regarding the renal artery stenosis She is on high dose of clonidine with associated side effects. Will decrease to 0.2 mg BID from 0.3 mg BID The goal is to achieve a target systolic blood pressure 140 mm Hg for now. Would avoid aggressive lowering of blood pressure or hypotension. Orders: Orders Basic Metabolic Panel 4 Weeks N26.1 - Atrophy of kidney (terminal) Medications: Changed From clonidine HCl 0.3 mg PO BID 180 tabs 0RF To clonidine HCl 0.2 mg PO BID 60 tabs 1RF Coding Level of Care Code Est Pt Level 4 (74495) Diagnoses Renal atrophy, left N26.1 Stage 3b chronic kidney disease N18.32 Chronic kidney disease stage 3 subtype: stage 3b (GFR 30-44) Hyponatremia E87.1
== END 2024-04-02 11:58 | disposition home or self-care (01) ==
PROVIDERS: PCP Nurse Practitioner Family; Visit Provider Internal Medicine Hypertension Specialist
DX: N26.1 Atrophy of kidney (terminal) (principal); N18.32 Chronic kidney disease, stage 3b; E87.1 Hypo-osmolality and hyponatremia
CPT/HCPCS: 99214

== ENCOUNTER → 2024-04-02 11:17 | Outpatient (BNVA) | payer MEDICARE, SELFPAY | PROVIDERS: PCP Nurse Practitioner Family; Visit Provider Internal Medicine Hypertension Specialist | DX: I1A.0 Resistant hypertension (principal); N26.1 Atrophy of kidney (terminal); N18.32 Chronic kidney disease, stage 3b; E87.1 Hypo-osmolality and hyponatremia | CPT/HCPCS: 99212 ==

== ENCOUNTER 2024-04-15 12:25 | Outpatient (AMB) | payer MEDICARE, SELFPAY ==
--- NOTE | 2024-04-15 12:27 | A.OFFPC_ITS ---
Vital Signs 04/15/24 12:33 Height 5 ft 6 in Weight 178 lb BMI 28.7 BP 178/78 H Blood Pressure Location Lt brachial Position Sitting Respiration 15 Pulse 76 Pulse Source Pulse Oximeter Pulse Oximetry (%) 96 Oxygen Delivery Method Room Air Intake Visit Reasons: 30 min f/u complex conditions Intake Note: follow up Allergies codeine Allergy (Unknown, Verified 04/15/24 12:48) Unknown Medication List - Last Reconciled 04/15/24 by Blank Rodriguez, [facility]- albuterol sulfate 90 mcg/actuation 2 puffs PO Q4-6H PRN aliskiren 150 mg PO DAILY amlodipine 10 mg PO DAILY aspirin (Adult Low Dose Aspirin) 81 mg PO DAILY atenolol 50 mg PO BID 90 days bupropion HCl SR 200 mg PO QAM clonidine HCl 0.2 mg PO BID fluticasone propionate 50 mcg/actuation (Flonase Allergy Relief) 2 sprays intranasal DAILY PRN gabapentin 600 mg PO BID hydralazine 25 mg PO TID ipratropium-albuterol 0.5 mg-3 mg(2.5 mg base)/3 mL 3 mL inhalation QID PRN 30 days levothyroxine 50 mcg PO DAILY nebulizer accessories Use nebulizer q 6 hrs prn wheezing, sob, cough DX: COPD nebulizers Use nebulizer q 6 hrs prn wheezing, sob, cough DX: COPD nystatin 5 mL PO TID 10 days omeprazole 20 mg PO BID rivaroxaban (Xarelto) 2.5 mg PO BID rosuvastatin 10 mg PO DAILY sertraline 100 mg PO DAILY Tobacco use date assessed: 11/01/23 Dental Screening Dental Screen Date: 07/16/23 HPI HPI Comments History of Present Illness Details Raquel 69-year-old female with CKD 3 B, atrophi c L kidney with L renal artery stenosis, hypertension, arthrosclerosis bilat lower extremities with claudication,CAD, severe plaque within the abdominal aorta beginning at the level of the SMA extending across the origin the left main renal artery with severe atrophy of the left kidney, impaired fasting glucose, COPD, GERD, hypothyroidism, current smoker, DRE, MDD, hemochromatosis, multi joint osteoarthritis, allergic rhinitis Status post appendectomy, right shoulder rotator cuff repair 2016, stenting of the mid abdominal aorta and both common iliac arteries as well as the left external iliac artery with arthrectomy and angioplasty of the left common femoral artery 08/09/2023 Dr Ruy [facility], Angiop lasty of the left common iliac artery with stent placement, placement of a left external iliac artery stent and arthrectomy just stenosis of the left common femoral artery November 15, 2023 Social: lives with Blank angulo Specialist Vascular Pulmonology Rheumatology Orthopedics Pain management Renal Cardiothoracic Dr Derek Gill first appt 05/05/24 Health maintenance Colonoscopy 2017 declined. Mammogram declined DEXA reports done once, declined further screening. Lung cancer screening program CT scan September 2021, 12/2022 Eyes reports recent eye exam done and report WNL Declined Flu shot. UTD on shingles, RSV. Advised to ask Pharm or pulm about PCV series. 03/2024 41.92 mL/min is your estimated creatinine clearance. Here today for chronic disease management Renal consult notes reviewed. Last visit 04/02/24. Pulm note 04/01/[address] [facility] at [facility] for eval of aorta found to hvave narrowing in the aorta above the level of the kidney, may need surgical repair, referred to Dr Gill. First appt 05/05/2024. She feels so tired all of the time LLE can go totally numb, has to be careful she doesnt fall. Has a handicap placard now and a cane; does not like to use the cane. Has had a few falls. Was able to get up. Does not have a life line. Discussed today. Does not think it is needed. Gets the chills of the time, this has been happening for a few months. can be weepy at times with all going on. On Sertraline and wellbutrin. . TSH is elevated. Taking levothyroxine in the AM. Not missing any doses. No change in actual medication. No supplements. Exam awake alert NAD, tired and chronically ill appearing RRR 2/6 systolic murmur No carotid bruit LS dim throughout Bilateral lower extremities hairless, nonpalpable pedal pulses, +1 edema LLE, RLE with trace edema. Skin intact & warm to touch Pleasant, tearful but appropriate Plan BP is high today, however not out of normal for her. She is closely managed by Renal. Home logs stable. Cont FU with care team increase levothyroxine to 75mcg Repeat labs in 6 weeks Considered stopping buproprion and starting something else to help her mood, however w/ her CrCL and other comorbid conditions, do not want to do this at this time. RTO 6 weeks f/u mood and thyroid, sooner PRN This note is constructed using voice recognition software. While every effort has been made to ensure accuracy in neon sign servicer, still errors may have been included Sometimes, these errors may affect the content or meaning of the given sentence . Total time spent caring for the patient today was 60 minutes. 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 Arthritis of left hip Disc degeneration, lumbar Lumbar facet arthropathy Stenosis, spinal, lumbar Sacroiliac joint pain Lumbar radicular pain Rhinitis Hypothyroidism Anxiety Tachycardia Cough COPD (chronic obstructive pulmonary disease) Smoker Surgical History No pertinent past surgical history Social History Household Members: Children Household Members Other:: daughter Housing: House Are you a primary restorative care technician to a significant other at home: No Do you presently have visiting nurse or other home services: No 75 years or older and lives alone: No Alcohol intake: current Alcohol intake frequency: holidays/special occasions only Alcohol type: beer Patient Tobacco Use Status: Former Tobacco user Tobacco use type: Cigarette Cigarette Packs Per Day: 0 Cigarettes Per Day: 2 e-Cigarette/Vaping Use: Never Used Current occupational status: retired Current occupation: right handed, retired Sexual orientation: Unable to collect Gender identity: Unable to collect Cognitive needs: No Hearing needs: No Vision needs: Yes (wears glasses to drive.) Questionnaire PHQ-9 Over the last 2 weeks, how often have you been bothered by any of the following problems? 1. Little interest or pleasure in doing things: not at all 2. Feeling down, depressed, or hopeless: not at all 3. Trouble falling or staying asleep, or sleeping too much: not at all 4. Feeling tired or having little energy: nearly every day 5. Poor appetite or overeating: not at all 6. Feeling bad about yourself - or that you are a failure or have let yourself or your family down: not at all 7. Trouble concentrating on things, such as reading the newspaper or watching television: not at all 8. Moving or speaking so slowly that other people could have noticed. Or the opposite - being so fidgety or restless that you have been moving around a lot more than usual: not at all 9. Thoughts that you would be better off or of hurting yourself in some way: not at all Total score: 3 10750 - PHQ-9 Billing: Yes Source: Developed by Drs. Jayy Nguyễn, Stephy Coyle, Luis Walker and colleagues, with an educational tino from [employer]. Thrive Questionnaire Date Thrive assessed: 04/15/24 I am a: Patient What is your living situation today?: I have a steady place to live Within the past 12 months, did the food you bought not last and you didn't have the money to get more?: Often true Within the past 12 months, did you worry whether your food would run out before you got money to buy more?: Never true Do you have trouble paying for medicines?: No Do you have trouble getting transportation to medical appointments?: No Do you have trouble paying your heating and electricity bill?: No Do you have trouble taking care of your child, family member or friend?: No Do you have trouble with day-to-day activities such as bathing, preparing meals, shopping, managing finances, etc.?: No Are you currently unemployed and looking for a job?: No Are you interested in more education?: No Please select the resources that you would like help with: None Currently or been in a relationship where the following occur: No concerns reported THRIVE Score: 1 AUDIT C Alcohol Use Questionnaire (AUDIT-C) 1. How often do you have a drink containing alcohol?: 2-3 times a week 2. How many drinks containing alcohol do you have on a typical day when you are drinking?: 1 or 2 3. How often do you have six or more drinks on one occasion?: Less than monthly Total Score: 4 DRE-7 AMB Questionnaire DRE-7 Date DRE - 7 assessed: 04/15/24 Feeling nervous, anxious, or on edge: 0 = Not at all Not being able to stop or control worryin = Not at all Worrying too much about different things: 0 = Not at all Trouble relaxin = Not at all Being so restless that it is hard to sit still: 0 = Not at all Becoming easily annoyed or irritable: 0 = Not at all Feeling afraid as if something awful might happen: 0 = Not at all Total DRE-7 score (0-4 normal; 5-9 mild; 10-14 moderate; 15-21 severe): 0 Source: Developed by Drs. Jayy Nguyễn, Stephy Coyle, Luis Walker and colleagues, with an educational tino from [employer]. DRE-7 Assessment Billing DRE-7 Assessment Tool: DRE-7 Assessment 26350 Physical exam (Primary Care) Vital Signs: Last Vital Signs Pulse 76 04/15/24 12:33 Resp 15 04/15/24 12:33 BP 178/78 H 04/15/24 12:33 Pulse Ox 96 04/15/24 12:33 Oxygen Delivery Method Room Air 04/15/24 12:33 BMI result Body Mass Index 28.7 Tobacco/Smoking Status: Tobacco use Status Tobacco use date assessed 11/01/23 04/15/24 12:31 Patient Tobacco Use Status Former Tobacco user 04/15/24 12:31 Tobacco use type Cigarette 04/15/24 12:31 e-Cigarette/Vaping Use Never Used 04/15/24 12:31 PHQ-9: PHQ-9 Score PHQ-9: Total score 3 04/15/24 13:09 Thrive Assessment: Date of Thrive Assessment Date Thrive assessed 04/15/24 04/15/24 12:31 Currently or been in a relationship where the following occur: No concerns reported Coding Level of Care Code Est Pt Level 5 (55357) Complex EM visit Add On G2211 Diagnoses Acquired hypothyroidism E03.9 Hypothyroidism type: acquired Mild episode of recurrent major depressive disorder F33.0 Major depression episode severity: mild Stage 3b chronic kidney disease N18.32 Chronic kidney disease stage 3 subtype: stage 3b (GFR 30-44) Hypertension, unspecified type I10 Hypertension type: unspecified Panlobular emphysema J43.1 COPD type: emphysema Emphysema type: panlobular Additional Codes DRE-7 Assessment Billing - DRE-7 Assessment Tool: DRE-7 Assessment 86201 ([id number]) Assessment & Plan Assessment & Plan (1) Hypothyroidism: Code(s): E03.9 - Hypothyroidism, unspecified Category: Medical Qualifiers: Hypothyroidism type: acquired Qualified Code(s): E03.9 - Hypothyroidism, unspecified Plan: . (2) MDD (major depressive disorder), recurrent episode: Code(s): F33.9 - Major depressive disorder, recurrent, unspecified Category: Medical Qualifiers: Major depression episode severity: mild Qualified Code(s): F33.0 - Major depressive disorder, recurrent, mild Plan: . (3) CKD (chronic kidney disease) stage 3, GFR 30-59 ml/min: Comment: 08/2022 gfr 44 cr 1.23; 07/11/23 Bun 21 cr 1.63 egfr 32 stable avoid nephrotoxic agents. Atrophic left kidney noted on imaging July 2023 done by vascular 09/2023 elevated parathyroid hormone 114.7, vitamin-D & Ca WNL, BUN 25, creatinine 1.43, GFR 37 Code(s): N18.30 - Chronic kidney disease, stage 3 unspecified Category: Medical Qualifiers: Chronic kidney disease stage 3 subtype: stage 3b (GFR 30-44) Qualified Code(s): N18.32 - Chronic kidney disease, stage 3b Plan: . (4) HTN (hypertension): Code(s): I10 - Essential (primary) hypertension Category: Medical Qualifiers: Hypertension type: unspecified Qualified Code(s): I10 - Essential (primary) hypertension Plan: . (5) COPD (chronic obstructive pulmonary disease): Code(s): J44.9 - Chronic obstructive pulmonary disease, unspecified Category: Medical Qualifiers: COPD type: emphysema Emphysema type: panlobular Qualified Code(s): J43.1 - Panlobular emphysema Plan: . Plan . Orders: Orders TSH reflex Free T4 05/28/24 E03.9 - Hypothyroidism, unspecified Medications: New levothyroxine 75 mcg PO DAILY 90 tabs 0RF Discontinued levothyroxine Discontinued Reason: Doctor's Order 50 mcg PO DAILY 90 tabs 0RF
[2024-04-15 12:33] VITALS: BP 178/78; PULSE 76; RESP 15; O2SAT 96; BMI 28.7
== END 2024-04-15 13:29 | disposition home or self-care (01) ==
PROVIDERS: PCP Nurse Practitioner Family; Visit Provider Nurse Practitioner Family
DX: I12.9 Hypertensive chronic kidney disease with stage 1 through stage 4 chronic kidney disease, or unspecified chronic kidney disease (principal); F33.0 Major depressive disorder, recurrent, mild; N18.32 Chronic kidney disease, stage 3b; J43.1 Panlobular emphysema; E03.9 Hypothyroidism, unspecified

== ENCOUNTER → 2024-04-15 12:25 | Outpatient (BNVA) | payer MEDICARE, SELFPAY | PROVIDERS: PCP Nurse Practitioner Family; Visit Provider Nurse Practitioner Family | DX: E03.9 Hypothyroidism, unspecified (principal); F33.0 Major depressive disorder, recurrent, mild; I12.9 Hypertensive chronic kidney disease with stage 1 through stage 4 chronic kidney disease, or unspecified chronic kidney disease; N18.32 Chronic kidney disease, stage 3b; J43.1 Panlobular emphysema | CPT/HCPCS: 96127; 99212 ==

== ENCOUNTER 2024-05-08 11:18 | Outpatient (REF) | payer MEDICARE, SELFPAY ==
[2024-05-08 12:22] LABS: Anion Gap 14 (12-20); Blood Urea Nitrogen 34 mg/dL (9-16); Calcium 9.1 mg/dL (8.4-10.2); Carbon Dioxide 22 mmol/L (22-29); Chloride 107 mmol/L (96-108); Estimated Glomerular Filt Rate 30; Glucose Random 103 mg/dL (60-115); Potassium 4.5 mmol/L (3.3-5.1); Sodium 138 mmol/L (135-145)
== END 2024-05-08 11:19 | disposition home or self-care (01) ==
LOC: HO.LAB 11:18
PROVIDERS: PCP Nurse Practitioner Family; Visit Provider Internal Medicine Hypertension Specialist
DX: N25.1 Nephrogenic diabetes insipidus (principal)
CPT/HCPCS: 36415; 80048

== ENCOUNTER 2024-05-12 11:47 | Outpatient (AMB) | payer MEDICARE, SELFPAY ==
[2024-05-12 11:55] VITALS: BP 168/90; PULSE 69; O2SAT 98; BMI 28.6
--- NOTE | 2024-05-12 11:55 | HO.NEPHOV ---
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 Required: No Accompanied by: Self / Same As Patient Allergies codeine Allergy (Unknown, Verified 05/12/24 11:57) Unknown Medication List - Last Reconciled 05/12/24 by Nilay Spencer MD albuterol sulfate 90 mcg/actuation 2 puffs PO Q4-6H PRN aliskiren 150 mg PO DAILY amlodipine 10 mg PO DAILY aspirin (Adult Low Dose Aspirin) 81 mg PO DAILY atenolol 50 mg PO BID 90 days bupropion HCl SR 200 mg PO QAM clonidine HCl 0.2 mg PO BID fluticasone propionate 50 mcg/actuation (Flonase Allergy Relief) 2 sprays intranasal DAILY PRN gabapentin 600 mg PO BID hydralazine 50 mg PO TID ipratropium-albuterol 0.5 mg-3 mg(2.5 mg base)/3 mL 3 mL inhalation QID PRN 30 days levothyroxine 75 mcg PO DAILY nebulizer accessories Use nebulizer q 6 hrs prn wheezing, sob, cough DX: COPD nebulizers Use nebulizer q 6 hrs prn wheezing, sob, cough DX: COPD nystatin 5 mL PO TID 10 days omeprazole 20 mg PO BID rivaroxaban (Xarelto) 2.5 mg PO BID rosuvastatin 10 mg PO DAILY sertraline 100 mg PO DAILY HPI Comments Details: . Myrtle is a pleasant middle-aged woman with a history of resistant hypertension setting of severe vascular disease. She has undergone multiple stents in lower extremities and iliac arteries. She has atrophic left kidney with left renal artery stenosis. She is on multiple antihypertensive medications blood pressure is still suboptimal and hence this referral. She has underlying CKD with a serum creatinine around 1.4-1.6 mg/dL. She has a history of smoking for several years. She quit smoking about 6 months ago. She was on losartan hydrochlorothiazide. Due to hyponatremia of 130 millimoles per L hydrochlorothiazide has been discontinued recently. 03/12/24. She was given Bumex 0.25 mg half a tablet a day. She continues to feel tired. Recently creatinine is bumped up to 2.37. Home blood pressure readings were reviewed and systolic blood pressure is between 150 and 170 mm Hg. 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 Arthritis of left hip Disc degeneration, lumbar Lumbar facet arthropathy Stenosis, spinal, lumbar Sacroiliac joint pain Lumbar radicular pain Rhinitis Hypothyroidism Anxiety Tachycardia Cough COPD (chronic obstructive pulmonary disease) Smoker Surgical History No pertinent past surgical history Social History Household Members: Children Household Members Other:: daughter Housing: House Are you a primary health care marketing manager to a significant other at home: No Do you presently have visiting nurse or other home services: No 75 years or older and lives alone: No Alcohol intake: current Alcohol intake frequency: holidays/special occasions only Alcohol type: beer Patient Tobacco Use Status: Former Tobacco user Tobacco use type: Cigarette Cigarette Packs Per Day: 0 Cigarettes Per Day: 2 e-Cigarette/Vaping Use: Never Used Current occupational status: retired Current occupation: right handed, retired Sexual orientation: Unable to collect Gender identity: Unable to collect Cognitive needs: No Hearing needs: No Vision needs: Yes (wears glasses to drive.) Physical Exam Vital Signs: Last Vital Signs Pulse 69 05/12/24 11:55 BP 168/90 H 05/12/24 11:55 Pulse Ox 98 05/12/24 11:55 Oxygen Delivery Method Room Air 05/12/24 11:55 BMI result Body Mass Index 28.6 Results Reviewed Nephrology Results: Sodium 138 mmol/L (135-145) 05/08/24 Potassium 4.5 mmol/L (3.3-5.1) 05/08/24 Chloride 107 mmol/L (96-108) 05/08/24 Carbon Dioxide 22 mmol/L (22-29) 05/08/24 BUN 34 mg/dL (9-16) H 05/08/24 Creatinine 1.70 mg/dL (0.5-1.4) H 05/08/24 Calcium 9.1 mg/dL (8.4-10.2) 05/08/24 Assessment & Plan Assessment & Plan (1) Renal atrophy, left: Comment: see CKD Code(s): N26.1 - Atrophy of kidney (terminal) Category: Medical (2) CKD (chronic kidney disease) stage 3, GFR 30-59 ml/min: Comment: 08/2022 gfr 44 cr 1.23; 07/11/23 Bun 21 cr 1.63 egfr 32 stable avoid nephrotoxic agents. 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 She has atrophic left kidney with significant left renal artery stenosis. Severe stenosis of suprarenal abdominal aorta. Severe stenosis of origin of SMA. Infrarenal aortic stent. Resistant hypertension is probably due to underlying renal artery stenosis. Hyponatremia most likely due to the use of HCTZ leading to decreased free water clearance. Plan Stay on low-sodium diet Keep current medications for now. Keep Tekturna to optimize blood pressure. Discontinued BUMEX 0.5 mg - HALF tab a day Discontinued losartan Keep hydralazine 50 mg PO TID to optimize blood pressure If she has no improvement renal function we might have to discontinue Tekturna Await vascular surgery. She is on high dose of clonidine with associated side effects. Will decrease to 0.2 mg BID from 0.3 mg BID The goal is to achieve a target systolic blood pressure 140 mm Hg for now. Would avoid aggressive lowering of blood pressure or hypotension. Orders: Orders Basic Metabolic Panel 3 Months I70.203 - Unspecified atherosclerosis of [place] arteries of extremities, bilateral legs, N18.32 - Chronic kidney disease, stage 3b, N26.1 - Atrophy of kidney (terminal) Medications: New hydralazine 50 mg PO TID 90 tabs 3RF Coding Level of Care Code Est Pt Level 4 (16396) Diagnoses Renal atrophy, left N26.1 Stage 3b chronic kidney disease N18.32 Chronic kidney disease stage 3 subtype: stage 3b (GFR 30-44) Hyponatremia E87.1 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 I70.203
== END 2024-05-12 12:09 | disposition home or self-care (01) ==
PROVIDERS: PCP Nurse Practitioner Family; Visit Provider Internal Medicine Hypertension Specialist
DX: N26.1 Atrophy of kidney (terminal) (principal); N18.32 Chronic kidney disease, stage 3b; E87.1 Hypo-osmolality and hyponatremia; I70.203 Unspecified atherosclerosis of native arteries of extremities, bilateral legs
CPT/HCPCS: 99214

== ENCOUNTER → 2024-05-12 11:47 | Outpatient (BNVA) | payer MEDICARE, SELFPAY | PROVIDERS: PCP Nurse Practitioner Family; Visit Provider Internal Medicine Hypertension Specialist | DX: N26.1 Atrophy of kidney (terminal) (principal); N18.32 Chronic kidney disease, stage 3b; E87.1 Hypo-osmolality and hyponatremia; I70.203 Unspecified atherosclerosis of native arteries of extremities, bilateral legs | CPT/HCPCS: 99212 ==

== ENCOUNTER 2024-06-23 12:07 | Outpatient (AMB) | payer MEDICARE, SELFPAY ==
--- OUTSIDE RECORDS SUMMARY | 2024-06-23 12:08 | XMS_ITS | Continuity of Care Document ---
Author Organization [facility] Address [address] [place] [id number]- Care Team Providers Care Crossword Puzzle Maker Name Role Phone Garret Suárez NP Tk Primary Care Physician Encounter [facility] Date(s): 05/13/24 - 06/12/24 [facility] [address] [place] [address]- Encounter Type: Triage Medications Albuterol (Eqv-ProAir HFA) 90 mcg/inh inhalation aerosol 8 Gm, 0 Refill(s), INHALE 2 PUFFS BY MOUTH EVERY 4 TO 6 HOURS NEEDED FOR WHEEZING, 0 Refills, 05/05/24 4:08:00 PM EST, Partial fill upon patient request if the prescription is for a schedule II opioid drug. Start Date: 05/05/24 Status: Ordered Repeat number: 1 aliskiren 150 mg oral tablet 90 each, 0 Refill(s), TAKE 1 TABLET BY MOUTH DAILY IN ADDITION TO LOSARTAN, 0 Refills, 05/05/24 4:09:00 PM EST, Partial fill upon patient request if the prescription is for a schedule II opioid drug. Start Date: 05/05/24 Status: Ordered Repeat number: 1 amLODIPine 10 mg oral tablet 90 each, 0 Refill(s), TAKE 1 TABLET BY MOUTH DAILY, 0 Refills, 05/05/24 4:08:00 PM EST, Partial fill upon patient request if the prescription is for a schedule II opioid drug. Start Date: 05/05/24 Status: Ordered Repeat number: 1 aspirin 81 mg oral capsule 1 capsule = 81 mg, By Mouth, Every 24 hours, 0 Refills, Maintenance, 05/05/24 4:10:00 PM EST, Partial fill upon patient request if the prescription is for a schedule II opioid drug. Start Date: 05/05/24 Status: Ordered Repeat number: 1 atenolol 50 mg oral tablet 180 each, 0 Refill(s), TAKE 1 TABLET BY MOUTH TWICE DAILY, Refills 0, 05/05/24 4:08:00 PM EST, Partial fill upon patient request if the prescription is for a schedule II opioid drug. Start Date: 05/05/24 Status: Ordered Repeat number: 1 buPROPion 200 mg/12 hours (SR) oral tablet, extended release 90 each, 0 Refill(s), TAKE 1 TABLET BY MOUTH EVERY MORNING, 0 Refills, 05/05/24 4:08:00 PM EST, Partial fill upon patient request if the prescription is for a schedule II opioid drug. Start Date: 05/05/24 Status: Ordered Repeat number: 1 cloNIDine 0.3 mg oral tablet 180 each, 0 Refill(s), TAKE 1 TABLET BY MOUTH TWICE DAILY, 0 Refills, 05/05/24 4:09:00 PM EST, Partial fill upon patient request if the prescription is for a schedule II opioid drug. Start Date: 05/05/24 Status: Ordered Repeat number: 1 hydrALAZINE 25 mg oral tablet 270 each, 0 Refill(s), TAKE 1 TABLET BY MOUTH THREE TIMES DAILY, Refills 0, 05/05/24 4:10:00 PM EST, Partial fill upon patient request if the prescription is for a schedule II opioid drug. Start Date: 05/05/24 Status: Ordered Repeat number: 1 levothyroxine 0.05 mg oral tablet 90 each, 0 Refill(s), TAKE 1 TABLET BY MOUTH DAILY, 0 Refills, 05/05/24 4:09:00 PM EST, Partial fill upon patient request if the prescription is for a schedule II opioid drug. Start Date: 05/05/24 Status: Ordered Repeat number: 1 Miscellaneous Rx 0 Refills, 1 each, 0 Refill(s), 05/05/24 4:10:00 PM EST Start Date: 05/05/24 Status: Ordered Repeat number: 1 omeprazole 20 mg oral enteric coated capsule 180 each, 0 Refill(s), TAKE 1 CAPSULE BY MOUTH TWICE DAILY, 0 Refills, 05/05/24 4:09:00 PM EST, Partial fill upon patient request if the prescription is for a schedule II opioid drug. Start Date: 05/05/24 Status: Ordered Repeat number: 1 rosuvastatin 10 mg oral tablet 30 each, 0 Refill(s), TAKE 1 TABLET BY MOUTH DAILY, 0 Refills, 05/05/24 4:09:00 PM EST, Partial fill upon patient request if the prescription is for a schedule II opioid drug. Start Date: 05/05/24 Status: Ordered Repeat number: 1 sertraline 100 mg oral tablet 90 each, 0 Refill(s), TAKE 1 TABLET BY MOUTH DAILY, 0 Refills, 05/05/24 4:09:00 PM EST, Partial fill upon patient request if the prescription is for a schedule II opioid drug. Start Date: 05/05/24 Status: Ordered Repeat number: 1 Xarelto 2.5 mg oral tablet 180 each, 0 Refill(s), TAKE 1 TABLET BY MOUTH TWICE DAILY, 0 Refills, 05/05/24 4:09:00 PM EST, Partial fill upon patient request if the prescription is for a schedule II opioid drug. Start Date: 05/05/24 Status: Ordered Repeat number: 1 Problem List Condition Confirmation Course Effective Dates Status Health St atus Informant CKD (chronic kidney disease) Confirmed Active Claudication of lower extremity Confirmed Active Renal artery stenosis Confirmed Active Patient Care team information Care Team Personnel Name: Garret Suárez NP Position: [facility] Outreach Member Role: PCP Address: [address] [place] [id number] Telecom: Care Team Related Persons Name: GARRET ASHTON Insurance Providers Guarantor name: FARZANA ASHTON Health Plan Information #: 1 Payer: MEDICARE PART B OUTPT Member Number: NA Policy Number: NA Group Number: NA Health Plan Information #: 2 Payer: MEDEX Member Number: NA Policy Number: NA Group Number: NA
[2024-06-23 12:13] VITALS: BP 172/86; PULSE 86; O2SAT 98; BMI 28.2
--- NOTE | 2024-06-23 12:13 | A.OFFPC_ITS ---
Vital Signs 06/23/24 12:13 Height 5 ft 6 in Weight 175 lb BMI 28.2 BP 172/86 H Blood Pressure Location Lt brachial Position Sitting Pulse 86 Pulse Source Pulse Oximeter Pulse Oximetry (%) 98 Intake Visit Reasons: 6 weeks fu tsh and mood 30 min Intake Note: pt is here for 6 week f/up, did not have blood work done Healthcare Account Manager Required: No Accompanied by: Self / Same As Patient Allergies codeine Allergy (Unknown, Verified 06/23/24 12:58) Unknown Tobacco use date assessed: 11/01/23 Fall risk assessment: No Falls in past year Last assessed Fall Risk: 06/23/24 Dental Screening Dental Screen Date: 07/16/23 HPI HPI Comments History of Present Illness Details Raquel 69-year-old female with CKD 3 B, atrophi c L kidney with L renal artery stenosis, hypertension, arthrosclerosis bilat lower extremities with claudication,CAD, severe plaque within the abdominal aorta beginning at the level of the SMA extending across the origin the left main renal artery with severe atrophy of the left kidney, impaired fasting glucose, COPD, GERD, hypothyroidism, current smoker, DRE, MDD, hemochromatosis, multi joint osteoarthritis, allergic rhinitis Status post appendectomy, right shoulder rotator cuff repair 2017, stenting of the mid abdominal aorta and both common iliac arteries as well as the left external iliac artery with arthrectomy and angioplasty of the left common femoral artery 08/09/2023 Dr Ruy Mooney [facility], Angioplasty of the left common iliac artery with stent placement, placement of a left external iliac artery stent and arthrectomy just stenosis of the left common femoral artery November 15, 2023 Social: lives with Blank angulo Specialist Vascular Pulmonology Rheumatology Orthopedics Pain management Renal Cardiothoracic Dr Derek Gill first appt 05/05/24, next appt 07/14/24 Health maintenance Colonoscopy 2017 declined. Mammogram declined DEXA reports done once, declined further screening. Lung cancer screening program CT scan September 2021, 12/2022 Eyes reports recent eye exam done and report WNL Declined Flu shot. UTD on shingles, RSV. Advised to ask Pharm or pulm about PCV series. 03/2024 41.92 mL/min is your estimated creatinine clearance. The patient is a 69-year-old female presenting with a follow-up for hypothyroidism, cardiovascular concerns, COPD management, and oral thrush. She has a history of hypothyroidism, for which her levothyroxine dose was increased to 75 mcg due to elevated TSH levels. She has been experiencing issues with persistent hypertension and was previously managed with hydralazine and clonidine, with adjustments made by Dr. Millard. The patient uses a clonidine dose of 0.3 mg at night and 0.2 mg during the day, with nighttime administration to aid sleep. The patient reported shortness of breath, particularly severe over the weekend, causing her to remain in bed. She associates the breathlessness with potential aortic stenosis, for which major surgery was recommended to clear out arterial plaque, insert a new artery, and possibly improve kidney function. Additionally, carotid artery stenosis was suggested by an conservation technician. She has also had a high-stress test blood pressure and an incomplete stress test due to elevated readings, with prophylactic preparation for an echocardiogram scheduled. She describes her overall breathing difficulties as worsening over time, with noted angina-like pain and increased fatigue. The patient reports using a nebulizer three to four times daily due to increased difficulty in expectorating secretions, though saliva stimulants were used to manage dry mouth. She was on inhaled steroids previously but developed oral thrush after combining it with antibiotics. She continues to use lozenges to counteract dryness with limited success. For oral thrush, she has used nystatin and desired a prescription refill. Past lab evaluations revealed elevated homocysteine levels and normal B12 in October, with concerns about current deficiency. The patient recalls B12 injections and is currently taking oral B12 supplements as advised by her dentist. Will be having dental extactions 07/02/24 Review of Systems - Cardiovascular System: Reports angina. - Respiratory System: Reports shortness of breath, increased nebulizer use. - Gastrointestinal System: Reports oral thrush, dry mouth. - General: Reports fatigue, lightheadedn ess. - Psych mood is the same; cont to feel s ad and overwhelmed regarding her medical state Denies si/hi Just wants to feel better Physical Exam awake alert NAD, tired and chronically ill appearing angular chelitis RRR 2/6 systolic murmur No carotid bruit LS dim throughout with ins/exp wheezes, congested cough Bilateral lower extremities hairless, nonpalpable pedal pulses, +1 edema LLE, RLE with trace edema. Skin intact & warm to touch Pleasant, tearful but appropriate Results - Labs: Homocysteine elevated, B12 level s last checked in October, were normal. - Tests and Diagnostics: Carotid artery ultrasound suggested stenosis; stress test incomplete due to high blood pressure. CT of chest I do not have imaging results but these were requested. Labs today: show mild anemia which makes sense, as she had bleeding during her stress test d/t IV site. No treatment needed at this time other than I would encourage iron rich foods. TSH remains mildly elevated however improved. No change in dosing at this time. Kidneys look stable. B12 level is normal. Plan - 07/08/24 echocardiogram to evaluate car diac function further. - Provide nystatin for oral thrush with instructions to rinse the mouth. - Monitor blood pressure, continue hydra lazine and clonidine, addressing hypertensive crisis during stress testing. - Review and adjust COPD management; sta rt ICS Pulmicort, cont nebs and BRIELLE RTO 1 month for close interim fu, sooner PRN Patient was informed and verbally consented to the use of an ambient scribe for clinic note documentation during this visit. This note is constructed using voice recognition software. While every effort has been made to ensure accuracy in access developer, still errors may have been included Sometimes, these errors may affect the content or meaning of the given sentence . Total time spent caring for the patient today was 60 minutes. 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 Arthritis of left hip Disc degeneration, lumbar Lumbar facet arthropathy Stenosis, spinal, lumbar Sacroiliac joint pain Lumbar radicular pain Rhinitis Hypothyroidism Anxiety Tachycardia Cough COPD (chronic obstructive pulmonary disease) Smoker Surgical History No pertinent past surgical history Social History Household Members: Children Household Members Other:: daughter Housing: House Are you a primary healthcare account manager to a significant other at home: No Do you presently have visiting nurse or other home services: No 75 years or older and lives alone: No Alcohol intake: current Alcohol intake frequency: holidays/special occasions only Alcohol type: beer Patient Tobacco Use Status: Former Tobacco user Tobacco use type: Cigarette Cigarette Packs Per Day: 0 Cigarettes Per Day: 2 e-Cigarette/Vaping Use: Never Used Current occupational status: retired Current occupation: right handed, retired Sexual orientation: Unable to collect Gender identity: Unable to collect Cognitive needs: No Hearing needs: No Vision needs: Yes (wears glasses to drive.) Questionnaire Thrive Questionnaire Date Thrive assessed: 04/15/24 I am a: Patient What is your living situation today?: I have a steady place to live Within the past 12 months, did the food you bought not last and you didn't have the money to get more?: Often true Within the past 12 months, did you worry whether your food would run out before you got money to buy more?: Never true Do you have trouble paying for medicines?: No Do you have trouble getting transportation to medical appointments?: No Do you have trouble paying your heating and electricity bill?: No Do you have trouble taking care of your child, family member or friend?: No Do you have trouble with day-to-day activities such as bathing, preparing meals, shopping, managing finances, etc.?: No Are you currently unemployed and looking for a job?: No Are you interested in more education?: No Please select the resources that you would like help with: None Currently or been in a relationship where the following occur: No concerns reported THRIVE Score: 1 DRE-7 AMB Questionnaire DRE-7 Date DRE - 7 assessed: 04/15/24 Source: Developed by Drs. Jayy Nguyễn, Stephy Coyle, Luis Walker and colleagues, with an educational tino from [employer]. Physical exam (Primary Care) Vital Signs: Last Vital Signs Pulse 86 06/23/24 12:13 BP 172/86 H 06/23/24 12:13 Pulse Ox 98 06/23/24 12:13 BMI result Body Mass Index 28.2 Tobacco/Smoking Status: Tobacco use Status Tobacco use date assessed 11/01/23 06/23/24 12:16 Patient Tobacco Use Status Former Tobacco user 06/23/24 12:16 Tobacco use type Cigarette 06/23/24 12:16 e-Cigarette/Vaping Use Never Used 06/23/24 12:16 Thrive Assessment: Date of Thrive Assessment Date Thrive assessed 04/15/24 06/23/24 12:16 Currently or been in a relationship where the following occur: No concerns reported Coding Level of Care Code Est Pt Level 5 (89158) Complex EM visit Add On G2211 Diagnoses Acquired hypothyroidism E03.9 Hypothyroidism type: acquired Hypertension, unspecified type I10 Hypertension type: unspecified Stage 3b chronic kidney disease N18.32 Chronic kidney disease stage 3 subtype: stage 3b (GFR 30-44) IFG (impaired fasting glucose) R73.01 Glossitis K14.0 Coronary artery disease involving nondalton coronary artery of nondalton heart without angina pectoris I25.10 [place] vs. transplanted heart: nondalton heart Associated angina: without angina DRE (generalized anxiety disorder) F41.1 Panlobular emphysema J43.1 COPD type: emphysema Emphysema type: panlobular Assessment & Plan Assessment & Plan (1) Hypothyroidism: Code(s): E03.9 - Hypothyroidism, unspecified Category: Medical Qualifiers: Hypothyroidism type: acquired Qualified Code(s): E03.9 - Hypothyroidism, unspecified (2) HTN (hypertension): Code(s): I10 - Essential (primary) hypertension Category: Medical Qualifiers: Hypertension type: unspecified Qualified Code(s): I10 - Essential (primary) hypertension (3) CKD (chronic kidney disease) stage 3, GFR 30-59 ml/min: Comment: 08/2022 gfr 44 cr 1.23; 07/11/23 Bun 21 cr 1.63 egfr 32 stable avoid nephrotoxic agents. Atrophic left kidney noted on imaging July 2023 done by vascular 09/2023 elevated parathyroid hormone 114.7, vitamin-D & Ca WNL, BUN 25, creat inine 1.43, GFR 37 Code(s): N18.30 - Chronic kidney disease, stage 3 unspecified Category: Medical Qualifiers: Chronic kidney disease stage 3 subtype: stage 3b (GFR 30-44) Qualified Code(s): N18.32 - Chronic kidney disease, stage 3b (4) IFG (impaired fasting glucose): Code(s): R73.01 - Impaired fasting glucose Category: Medical (5) Glossitis: Comment: b12 WNL. Continue to use nystatin until oral complaints are resolved. Code(s): K14.0 - Glossitis Category: Medical (6) CAD (coronary artery disease), nondalton coronary artery: Comment: on ASA. RX for rosuvastatin 10mg prescribed. Repeat lipid panel 09/2023. Total cholesterol 137, LDL 55, HDL 68, triglycerides 70, at goal. Cont. rosuvastatin & Smoking cessation Code(s): I25.10 - Atherosclerotic heart disease of nondalton coronary artery without angina pectoris Category: Medical Qualifiers: [place] vs. transplanted heart: nondalton heart Associated angina: without angina Qualified Code(s): I25.10 - Atherosclerotic heart disease of nondalton coronary artery without angina pectoris (7) DRE (generalized anxiety disorder): Code(s): F41.1 - Generalized anxiety disorder Category: Medical (8) COPD (chronic obstructive pulmonary disease): Code(s): J44.9 - Chronic obstructive pulmonary disease, unspecified Category: Medical Qualifiers: COPD type: emphysema Emphysema type: panlobular Qualified Code(s): J43.1 - Panlobular emphysema Plan . Orders: Orders Complete Blood Count no Diff 06/23/24 E03.9 - Hypothyroidism, unspecified, I10 - Essential (primary) hypertension, K14.0 - Glossitis, N18.32 - Chronic kidney disease, stage 3b, R73.01 - Impaired fasting glucose Comprehensive Met. Panel 06/23/24 E03.9 - Hypothyroidism, unspecified, I10 - Essential (primary) hypertension, K14.0 - Glossitis, N18.32 - Chronic kidney disease, stage 3b, R73.01 - Impaired fasting glucose Vitamin B12 and Folate 06/23/24 E03.9 - Hypothyroidism, unspecified, I10 - Essential (primary) hypertension, K14.0 - Glossitis, N18.32 - Chronic kidney disease, stage 3b, R73.01 - Impaired fasting glucose IRON PROFILE 06/23/24 E03.9 - Hypothyroidism, unspecified, I10 - Essential (primary) hypertension, K14.0 - Glossitis, N18.32 - Chronic kidney disease, stage 3b, R73.01 - Impaired fasting glucose TSH reflex Free T4 06/23/24 E03.9 - Hypothyroidism, unspecified, I10 - Essential (primary) hypertension, K14.0 - Glossitis, N18.32 - Chronic kidney disease, stage 3b, R73.01 - Impaired fasting glucose Hemoglobin A1c 06/23/24 E03.9 - Hypothyroidism, unspecified, I10 - Essential (primary) hypertension, K14.0 - Glossitis, N18.32 - Chronic kidney disease, stage 3b, R73.01 - Impaired fasting glucose Medications: New budesonide 180 mcg/actuation (Pulmicort Flexhaler) 1 inh inhalation BID 1 ea 3RF Refilled nystatin swish and swallow 5 mL PO TID 10 days 150 mL 4RF rosuvastatin 10 mg PO DAILY 90 tabs 1RF
== END 2024-06-23 13:36 | disposition home or self-care (01) ==
PROVIDERS: PCP Nurse Practitioner Family; Visit Provider Nurse Practitioner Family
DX: I12.9 Hypertensive chronic kidney disease with stage 1 through stage 4 chronic kidney disease, or unspecified chronic kidney disease (principal); N18.32 Chronic kidney disease, stage 3b; J43.1 Panlobular emphysema; E03.9 Hypothyroidism, unspecified; R73.01 Impaired fasting glucose; K14.0 Glossitis; I25.10 Atherosclerotic heart disease of native coronary artery without angina pectoris; F41.1 Generalized anxiety disorder

== ENCOUNTER → 2024-06-23 12:07 | Outpatient (BNVA) | payer MEDICARE, SELFPAY | PROVIDERS: PCP Nurse Practitioner Family; Visit Provider Nurse Practitioner Family ==

== ENCOUNTER 2024-06-23 13:29 | Outpatient (REF) | payer MEDICARE, SELFPAY ==
--- OUTSIDE RECORDS SUMMARY | 2024-06-23 13:31 | XMS_ITS | Continuity of Care Document ---
Author Organization [facility] Address [address] [place] [id number] Care Team Providers Care Caponizer Name Role Phone Garret Suárez NP Primary Care Physician Encounter [facility] [place] Date(s): 05/05/24 - 06/04/24 [facility] [address] [place], [place] [id number] Attending Physician: Greg Cullen Admitting Physician: Greg Cullen Referring Physician: Greg Cullen Encounter Type: Triage Medications Albuterol (Eqv-ProAir HFA) [...] Team Personnel Name: Garret Suárez NP Position: S Outreach Member Role: PCP Address: [address] [place] [address] Telecom: Care Team Related Persons Name: GARRET ASHTON Insurance Providers Guarantor name: FARZANA WELCH Health Plan Information #: 1 Payer: MEDICARE PART B OUTPT Member Number: NA Policy Number: NA Group Number: NA
[2024-06-23 15:03] LABS: Hematocrit 34.3 % (37.0-47.0); Hemoglobin 11.5 g/dl (12.0-16.0); Mean Corpuscular HGB Conc 33.5 g/dl (31.0-35.0); Mean Corpuscular Hemoglobin 31.7 pg (27.0-33.0); Mean Corpuscular Volume 94.5 fL (80.0-98.0); Mean Platelet Volume 10.3 fL (9.4-12.3); Platelet Count 116 X10*3/uL (160-400); Red Blood Count 3.63 X10*6/uL (4.20-5.50); Red Cell Distribution Width 13.4 % (11.0-16.0); White Blood Count 5.9 X10*3/uL (4.8-10.8)
[2024-06-23 15:33] LABS: Estimated Average Glucose 91 mg/dL; Hemoglobin A1C 87.2015 umol/L; Hemoglobin A1c % 4.8 % (<6.0); Total Hemoglobin (HGBA1C) 3039.1334 umol/L
[2024-06-23 15:42] LABS: Alanine Aminotransferase 22 U/L (0-31); Anion Gap 13 (12-20); Aspartate Amino Transferase 36 U/L (5-31); Bilirubin Total 0.8 mg/dL (0.0-1.0); Blood Urea Nitrogen 18 mg/dL (9-16); Calcium 9.3 mg/dL (8.4-10.2); Carbon Dioxide 24 mmol/L (22-29); Chloride 109 mmol/L (96-108); Estimated Glomerular Filt Rate 49; Glucose Random 98 mg/dL (60-115); Iron 105 mcg/dL (30-160); Percent Iron Saturation 30 % (15-50); Potassium 4.5 mmol/L (3.3-5.1); Sodium 141 mmol/L (135-145); Total Iron Binding Capacity 345 mcg/dL (228-428); Total Protein 7.8 g/dL (6.5-8.0); Unsaturated Iron Binding 240 ug/dL
[2024-06-23 15:49] LABS: Alkaline Phosphatase 96 U/L (39-117)
[2024-06-23 16:31] LABS: Free T4 (Free Thyroxine) 1.24 ng/dL (0.71-1.85)
[2024-06-23 17:23] LABS: Folate 9.4 ng/mL (> or = 4.0); Vitamin B12 744 pg/mL (200-900)
== END 2024-06-23 13:30 | disposition home or self-care (01) ==
LOC: HO.WFDLDS 13:29
PROVIDERS: Visit Provider Nurse Practitioner Family
DX: E03.9 Hypothyroidism, unspecified (principal); I12.9 Hypertensive chronic kidney disease with stage 1 through stage 4 chronic kidney disease, or unspecified chronic kidney disease; N18.32 Chronic kidney disease, stage 3b; R73.01 Impaired fasting glucose; K14.0 Glossitis; I25.10 Atherosclerotic heart disease of native coronary artery without angina pectoris; F41.1 Generalized anxiety disorder; J43.1 Panlobular emphysema; I65.21 Occlusion and stenosis of right carotid artery; Z79.82 Long term (current) use of aspirin
CPT/HCPCS: 36415; 80053; 82607; 82746; 83036; 83540; 84439; 84443; 85027; 99212

== ENCOUNTER 2024-07-07 10:51 | Outpatient (REF) | payer MEDICARE, SELFPAY ==
--- NOTE | 2024-07-07 10:55 | PFT_ITS ---
Flows: FEV1: 67 % of predicted at 1.63 L FVC: 66 % of predicted at 2.07 L FEV1/FVC: 79 % Bronchodilator response: Absent Volumes: Total lung capacity: 77 % of predicted at 4.12 L Residual volume: 85 % of predicted at 1.71 L Slow vital capacity: 72 % of predicted at 2.41 L Expiratory reserve volume: 25 % of predicted at 0.20 L Diffusion capacity: Moderately decreased, adjusts to being mildly decreased after correction for alveolar ventilation. Impression: Moderate restrictive ventilatory defect with no bronchodilator response. Decreased expiratory reserve volume suggests extrathoracic restriction likely secondary to abdominal obesity. Combination of decreased diffusion capacity and restrictive ventilatory defect suggests pulmonary parenchymal disease. Clinical correlation is advised. MTDD
--- OUTSIDE RECORDS SUMMARY | 2024-07-07 12:48 | XMS_ITS | Continuity of Care Document ---
Author Organization [facility] Address [address] [place] [id number] Care Team Providers Care Ed Transporter Name Role Phone Garret Suárez NP Primary Care Physician Encounter [facility] [place] Date(s): 05/25/24 - 06/24/24 [facility] [address], [place] [id number] Attending Physician: Greg Cullen Admitting Physician: [...] Position: S Outreach Member Role: PCP Address: [address] [place] [address] Telecom: Care Team Related Persons Name: GARRET ASHTON Insurance Providers Guarantor name: FARZANA ASHTON Health Plan Information #: 1 Payer: MEDICARE PART B OUTPT Member Number: NA Policy Number: NA Group Number: NA Health Plan Information #: 2 Payer: MEDEX Member Number: NA Policy Number: NA Group Number: NA
== END 2024-07-07 10:52 | disposition home or self-care (01) ==
LOC: HO.RESP 10:51
PROVIDERS: PCP Nurse Practitioner Family; Visit Provider Internal Medicine
DX: J43.1 Panlobular emphysema (principal); Z87.891 Personal history of nicotine dependence
CPT/HCPCS: 94010; 94640; 94727; 94729; 99212

== ENCOUNTER 2024-07-07 10:54 | Outpatient (AMB) | payer MEDICARE, SELFPAY ==
[2024-07-07 11:35] VITALS: BP 140/68; PULSE 73; O2SAT 97; BMI 28.2
--- NOTE | 2024-07-07 11:35 | A.OFFVIS_ITS ---
Vital Signs 07/07/24 11:35 Height 5 ft 6 in Weight 175 lb BMI 28.2 BP 140/68 H Blood Pressure Location Lt brachial Position Sitting Pulse 73 Pulse Source Pulse Oximeter Pulse Oximetry (%) 97 Oxygen Delivery Method Room Air Intake Visit Reasons: COPD/Endarterectomy ([facility]) Intake Note: pt is here for possible pre-op clearance, she is short of breath with any exertion, ?oxygen with moving, pcp put her on budesonide for nebulizer, still using a albuterol. Allergies codeine Allergy (Unknown, Verified 07/07/24 12:07) Unknown Medication List - Last Reconciled 07/07/24 by Eddie Alvarenga MD albuterol sulfate 90 mcg/actuation 2 puffs PO Q4-6H PRN aliskiren 150 mg PO DAILY amlodipine 10 mg PO DAILY aspirin (Adult Low Dose Aspirin) 81 mg PO DAILY atenolol 50 mg PO BID 90 days budesonide 0.25 mg (2 mL) inhalation BID bupropion HCl SR 200 mg PO QAM clonidine HCl 0.2 mg PO BID fluticasone propionate 50 mcg/actuation (Flonase Allergy Relief) 2 sprays intranasal DAILY PRN gabapentin 600 mg PO BID hydralazine 50 mg PO TID ipratropium-albuterol 0.5 mg-3 mg(2.5 mg base)/3 mL 3 mL inhalation QID PRN 30 days levothyroxine 75 mcg PO DAILY nebulizer accessories Use nebulizer q 6 hrs prn wheezing, sob, cough DX: COPD nebulizers Use nebulizer q 6 hrs prn wheezing, sob, cough DX: COPD nystatin 5 mL PO TID PRN omeprazole 20 mg PO BID rivaroxaban (Xarelto) 2.5 mg PO BID rosuvastatin 10 mg PO DAILY sertraline 100 mg PO DAILY Do you need a note to return to daycare/school/sports/work: No HPI HPI COPD/Endarterectomy ([facility]): Details: This 69 years old female is well known to me, as I have been her primary care physician for many years. Currently she is being followed for chronic obstructive pulmonary disease and her history of past smoking. SHE SMOKED 1 PACK A DAY FOR MANY YEARS BUT LUCKILY QUIT SINCE LAST YEAR. She does have features of chronic obstructive pulmonary disease, and complains of intermittent cough, Also complains of getting short of breath on exertion like walking up hill or climbing stairs. However her activity level is relatively low because of her other comorbid conditions such as advanced degenerative arthritis of the spine, and peripheral vascular disease. She has been prescribed ipratropium-albuterol solution to use in the nebulizer at least 3 times a day, But she is using only as needed. She also has albuterol HFA which also she uses only once in a while. 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 Patient has been seen by Dr. Shiv Gill of [facility]. Who plans to do carotid surgery as well as abdominal aortic surgery at a later stage. Patient is here for preop Pulmonary Evaluation and optimization of pulmonary status. She does not have any active respiratory infection, and is not suffering from any acute exacerbation at this time. 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 Arthritis of left hip Disc degeneration, lumbar Lumbar facet arthropathy Stenosis, spinal, lumbar Sacroiliac joint pain Lumbar radicular pain Rhinitis Hypothyroidism Anxiety Tachycardia Cough COPD (chronic obstructive pulmonary disease) Smoker Surgical History No pertinent past surgical history Social History Household Members: Children Household Members Other:: daughter Housing: House Are you a primary acute care physical therapist to a significant other at home: No Do you presently have visiting nurse or other home services: No 75 years or older and lives alone: No Alcohol intake: current Alcohol intake frequency: holidays/special occasions only Alcohol type: beer Patient Tobacco Use Status: Former Tobacco user Tobacco use type: Cigarette Cigarette Packs Per Day: 0 Cigarettes Per Day: 2 e-Cigarette/Vaping Use: Never Used Current occupational status: retired Current occupation: right handed, retired Sexual orientation: Unable to collect Gender identity: Unable to collect Cognitive needs: No Hearing needs: No Vision needs: Yes (wears glasses to drive.) Review of Systems Const All systems reviewed & are unremarkable except as noted in HPI and below ENT Reports nasal congestion (mild intermittent ) Card Denies chest pain, Reports rapid heart rate and Reports dyspnea (on doing physical work ) Resp Reports cough (mild off and on ) and Reports dyspnea (on doing physical work ) GI Reports heartburn (Controlled with diet and med) Reports no additional complaints Musc Reports myalgias Skin/Breast Reports system reviewed and no additional complaints, except as documented Neuro Reports no additional complaints Psych Reports no additional complaints and Reports anxiety Physical Exam Vital Signs: Last Vital Signs Pulse 73 07/07/24 11:35 BP 140/68 H 07/07/24 11:35 Pulse Ox 97 07/07/24 11:35 Oxygen Delivery Method Room Air 07/07/24 11:35 BMI result Body Mass Index 28.2 Const General: healthy appearing, comfortable, no acute distress, alert and awake Orientation/consciousness: patient oriented x3 HEENT Head: Yes normal to inspection General nose exam: No nasal polyps present and No nasal discharge present Face and sinus: Yes sinuses nontender Mouth: oropharynx normal Throat: Yes posterior oropharynx normal Eyes General: appearance normal, both eyes and all related structures Neck Neck: Yes normal visual inspection, Yes no lymphadenopathy, Yes trachea midline and Yes no JVD Thyroid: Thyroid normal Chest Chest palpation & inspection: normal inspection of the chest, normal palpation of entire chest wall and no tenderness Resp Other: Percussion note is resonant. Breath sounds are quite distant on both sides with prolonged expiratory phase. I did not hear any wheezes, rhonchi or crepitations today. Cardio Palpation: normal PMI Rate: regular rate and tachycardic Rhythm: regular rhythm Heart sounds: no gallops and no murmurs Peripheral pulses: Peripheral pulses 2+ throughout GI Palpation (GI): Soft to palpation, nontender, No hepatosplenomegaly present and no masses Auscultation: normal bowel sounds Back/Spine/Pelvis Thoracic/Lumbar Spine: thoracic and lumbar spine normal to inspection Skin General skin exam: no rashes or lesions noted Neuro General: patient oriented x3 and no focal motor deficits Cranial nerves: Yes CN's II-XII intact bilaterally Extrem General: Yes normal to inspection, Yes no clubbing, cyanosis or edema, Yes no calf tenderness and No venous stasis dermatitis Psych Appearance: grossly normal and well kempt Speech and movement: Normal speech and movement present Results Reviewed Results Reviewed: PATIENT UNDERWENT PULMONARY FUNCTION TESTING THIS MORNING THE RESULTS INDICATE: 1- MILD RESTRICTIVE LUNG DISEASE 2- MILD OBSTRUCTIVE AIRWAY DISORDER, WITHOUT ANY SIGNIFICANT RESPONSE TO BRONCHODILATOR THERAPY Assessment & Plan Assessment & Plan (1) Smoker: Comment: Lifelong smoker. Stopped smoking ONE YEAR AGO CT scan of the chest in September 2021, negative, She is in the lung screening program but has MISSED SINCE LAST YEAR . Code(s): F17.200 - Nicotine dependence, unspecified, uncomplicated Category: Social Hx Plan: COMMENDED FOR NOT GOING BACK TO SMOKING. STRESSED THAT SHE CAN NOT RESUME SMOKING. (2) COPD (chronic obstructive pulmonary disease): Comment: PATIENT DOES HAVE MILD TO MODERATE DEGREE OF OBSTRUCTIVE AIRWAY DISORDER, ALSO HAS MILD RESTRICTIVE COMPONENT. EXCEPT FOR MILD COUGH AND SHORTNESS OF BREATH ON EXERTION SHE DOES NOT HAVE ANY ACTIVE PROBLEM AT THIS TIME. WE WILL TRY TO OPTIMIZE HER LUNG CONDITION BEFORE EXPECTED SURGERY. Code(s): J44.9 - Chronic obstructive pulmonary disease, unspecified Category: Medical Qualifiers: COPD type: emphysema Emphysema type: panlobular Qualified Code(s): J43.1 - Panlobular emphysema Plan: HAD GOOD DISCUSSION WITH THE PATIENT AND SHE UNDERSTANDS WELL. USE IPRATROPIUM-ALBUTEROL SOLUTION IN THE NEBULIZER Q 6 HOURS WHILE AWAKE . ALSO IT IS OKAY TO USE BUDESONIDE 0.5 MG SOLUTION IN THE NEBULIZER B.I.D.. USE ALBUTEROL HFA 2 PUFFS Q 4-6 HOURS ONLY P.R.N. IF SHE IS OUTDOORS. I HAVE GIVEN HER INCENTIVE SPIROMETRY DEVICE AND EDUCATED HER TO DO BREATHING EXERCISES 10 EXCURSIONS EVERY 2 HOURS WHILE AWAKE. Plan FAR PREOP CLEARANCE IS CONCERNED, FROM PULMONARY POINT OF VIEW THERE IS NO CONTRAINDICATION AT THIS TIME. I THINK SHE CAN SAFELY UNDERGO THE VASCULAR SURGERY, PLANNED. PRIOR TO SURGERY SHE WILL CONTINUE TO DO THE BREATHING TREATMENTS WRITTEN UNDER COPD. Send copy of this note to Dr. Derek Gill at [facility]. Coding Level of Care Code Est Pt Level 3 (67234) Diagnoses Smoker F17.200 Panlobular emphysema J43.1 COPD type: emphysema Emphysema type: panlobular
== END 2024-07-07 12:53 | disposition home or self-care (01) ==
PROVIDERS: PCP Nurse Practitioner Family; Visit Provider Internal Medicine
DX: J43.1 Panlobular emphysema (principal); F17.210 Nicotine dependence, cigarettes, uncomplicated
CPT/HCPCS: 94060; 94727; 94729; 99213

== ENCOUNTER 2024-07-12 03:47 | Inpatient (IN) | payer MEDICARE, SELFPAY ==
[2024-07-12] VITALS (9 sets, daily range): BP systolic 132–210; BP diastolic 57–82; PULSE 74–89; RESP 12–18; TEMP 36.6–37.7; O2SAT 96–99
--- NOTE | 2024-07-12 | ECG_ITS ---
Test Reason : epigastric pain Blood Pressure : */* mmHG Vent. Rate : 87 BPM Atrial Rate : 87 BPM P-R Int : 140 ms QRS Dur : 84 ms QT Int : 410 ms P-R-T Axes : 24 41 49 degrees QTcB Int : 493 ms Normal sinus rhythm Prolonged QT Abnormal ECG When compared with ECG of 22-Mar-2010 03:48, No significant change was found Referred By: Collette Victoria Electronically Signed By: BERNARD KIM MD
--- NOTE | ~2024-07-12 | CT_ITS ---
CLINICAL HISTORY: N v D, guiac +, on eliquis CT abdomen and pelvis with contrast Comparison: CT - ABD PELVIS WO CONT [id number] - 02/07/09 10:01 EDT Findings: The lung bases are clear. Liver demonstrates morphologic changes of chronic liver disease with contour nodularity and lobar redistribution. No discrete lesion. Gallbladder contains stones without inflammation or ductal dilation. Pancreas, spleen, adrenal glands and right kidney are unremarkable. Left kidney is atrophic. No renal stones or hydronephrosis. No bowel obstruction, pneumoperitoneum, or pneumatosis. No active extravasation into the bowel. Heavy calcified atheromatous plaquing of the nonaneurysmal aorta. Calcified plaque appears nearly occlusive at the level of the celiac artery. Additional heavy plaque at the origin of the SMA. Both the celiac artery and SMA do fill with contrast on postcontrast imaging. Findings suggest short segment aorto bi-iliac bypass at the level of the aortic bifurcation. There is an additional left external iliac stent in place on the left. Pelvic contents unremarkable. Appendix not identified. The bones are intact. Degenerative changes in the lower lumbar spine. IMPRESSION: 1. No evidence active gastrointestinal bleeding. No active contrast extravasation. 2. Heavy atheromatous plaquing in the nonaneurysmal aorta. Calcification above and at the level of the celiac artery and SMA appears to be nearly occlusive. 3. Morphologic changes chronic liver disease. No ascites. Normal splenic size. This document has been electronically signed by: Maame Parra MD on 07/12/2024 08:59:25
[2024-07-12 04:20] LABS: MANUAL DIFF FLAG NO
[2024-07-12 04:21] LABS: Basophils Absolute Auto 0.1 X10*3/uL (0.0-0.2); Basophils Percent Auto 0.7 % (0-2); Eosinophils Absolute Auto 0.2 X10*3/uL (0.0-0.4); Eosinophils Percent Auto 1.6 % (0-4); Hemoglobin 9.8 g/dl (12.0-16.0); Imm Gran Abs Auto 0.06 X10*3/uL (0.00-0.03); Imm Gran Pct Auto 0.6 % (0.0-0.4); Lymphocytes Absolute Auto 0.9 X10*3/uL (1.2-4.9); Lymphocytes Percent Auto 8.4 % (20-40); Mean Corpuscular Hemoglobin 32.7 pg (27.0-33.0); Mean Corpuscular Volume 93.3 fL (80.0-98.0); Mean Platelet Volume 9.5 fL (9.4-12.3); Monocytes Absolute Auto 0.6 X10*3/uL (0.1-1.2); Monocytes Percent Auto 5.2 % (2-11); Neutrophils Absolute Auto 8.9 x10*3/uL (2.0-8.3); Neutrophils Percent Auto 83.5 % (45-73); Platelet Count 151 X10*3/uL (160-400); Red Cell Distribution Width 13.7 % (11.0-16.0); White Blood Count 10.6 X10*3/uL (4.8-10.8)
[2024-07-12] MEDS: ondansetron HCL 4 MG/2 ML VIAL IVPUSH ×2 (04:22→13:05)
[2024-07-12 04:27] LABS: INTERNATIONAL NORM RATIO 1.2 (0.9-1.1); Prothrombin Time 13.5 SEC (10.9-12.4)
[2024-07-12 04:44] LABS: Alanine Aminotransferase 20 U/L (0-31); Albumin Level 3.9 g/dL (3.5-5.0); Alkaline Phosphatase 85 U/L (39-117); Anion Gap 19 (12-20); Aspartate Amino Transferase 38 U/L (5-31); Bilirubin Total 0.6 mg/dL (0.0-1.0); Blood Urea Nitrogen 29 mg/dL (9-16); Calcium 8.7 mg/dL (8.4-10.2); Carbon Dioxide 13 mmol/L (22-29); Chloride 109 mmol/L (96-108); Creatinine Clr Calc Pharmacy 50.5; Estimated Glomerular Filt Rate 48; Glucose Random 84 mg/dL (60-115); Lipase 27 U/L (8-78); Potassium 4.4 mmol/L (3.3-5.1); Sodium 137 mmol/L (135-145); Total Protein 7.7 g/dL (6.5-8.0)
[2024-07-12 06:23] LABS: OBS Int Ctl Valid YES; OBS1 POSITIVE (NEGATIVE)
[2024-07-12] MEDS: Tranexamic Acid 1,000 MG in 0.9 % Sodium Chloride 250 ML 32.5 MG IV ×2 (06:49→09:36)
--- NOTE | 2024-07-12 07:00 | PC.NURSE ---
Report taken from La Nena Mock RN
--- NOTE | 2024-07-12 07:35 | ED.GENADULT ---
HPI - General Adult General Chief complaint: Nausea/Vomiting/Diarrhea Stated complaint: BLEEDING FROM MOUTH, NAUSEA/VOMITTING Time Seen by Provider: 07/12/24 06:02 Source: patient Mode of arrival: ambulatory Limitations: no limitations History of Present Illness ED Provider: Dr. Keerthi Munguia HPI narrative: Patient comes to the emergency room complaining of nausea vomiting and diarrhea. Started 1 day ago. Patient states that she recently restarted taking Eliquis after a dental procedure. Patient states that 7 days ago she had surgically removed her teeth in the maxilla the bleeding from the gums started yesterday. Patient reports that today she has been vomiting blood. Patient is unsure if this is blood because she has has been swallowing it. Patient denies black stool. Patient denies weakness or shortness of breath Related Data Home Medications ?Medication ?Instructions ?Recorded ?Confirmed rivaroxaban 2.5 mg tablet (Xarelto) 2.5 mg PO BID 08/27/23 05/12/24 fluticasone propionate 50 2 spray intranasal DAILY PRN 01/14/24 05/12/24 mcg/actuation nasal Allergic Rhinitis spray,suspension (Flonase Allergy Relief) nystatin 100,000 unit/mL oral 5 ml PO TID PRN 07/07/24 suspension Previous Rx's ?Medication ?Instructions ?Recorded aspirin 81 mg tablet,delayed 81 mg PO DAILY #30 tabs 08/28/23 release (Adult Low Dose Aspirin) nebulizer accessories #1 ea 11/05/23 nebulizers #1 ea 11/05/23 omeprazole 20 mg capsule,delayed 20 mg PO BID #180 caps 02/17/24 release albuterol sulfate 90 mcg/actuation 2 puff PO Q4-6H PRN for wheezing 03/19/24 aerosol inhaler #8.5 grams ipratropium 0.5 mg-albuterol 3 mg 3 ml inhalation QID PRN wheezing 04/01/24 (2.5 mg base)/3 mL nebulization 30 days #180 mL soln amlodipine 10 mg tablet 10 mg PO DAILY #90 tabs 04/10/24 hydralazine 50 mg tablet 50 mg PO TID #90 tabs 05/12/24 atenolol 50 mg tablet 50 mg PO BID 90 days #180 tabs 05/15/24 gabapentin 600 mg tablet 600 mg PO BID #180 tabs 05/15/24 sertraline 100 mg tablet 100 mg PO DAILY #90 tabs 05/15/24 rosuvastatin 10 mg tablet 10 mg PO DAILY #90 tabs 06/23/24 budesonide 0.25 mg/2 mL suspension 0.25 mg (2 mL) inhalation BID #60 07/02/24 for nebulization mL aliskiren 150 mg tablet 150 mg PO DAILY #90 tabs 07/07/24 clonidine HCl 0.2 mg tablet 0.2 mg PO BID #60 tabs 07/07/24 bupropion HCl 200 mg tablet,12 hr 200 mg PO QAM #90 tabs 07/09/24 sustained-release levothyroxine 75 mcg tablet 75 mcg PO DAILY #90 tabs 07/09/24 Allergies Allergy/AdvReac Type Severity Reaction Status Date / Time codeine Allergy Unknown Unknown Verified 07/12/24 04:18 Review of Systems Review of Systems: Constitutional : No Weight loss, No Fever, No Chills, No Night Sweats, No Fatigue, No Malaise ENT/Mouth : Patient complaining of bleeding from the gums from the upper part/maxilla No Hearing loss, No Ear Pain, No Nasal Congestion, No Sinus Pain, No Hoarseness, No sore throat, No Rhinorrhea, No Swallowing Difficulty Eyes: No Eye Pain, No Swelling, No Redness, No Foreign Body, No Discharge, No Vision Changes Cardiovascular : No Chest Pain, No SOB, No Dyspnea on Exertion, No Orthopnea, No Edema, No Palpitations Respiratory : No Cough, No Sputum, No Wheezing, No Smoke Exposure, No Dyspnea Gastrointestinal : Patient complaining of vomiting blood, complaining of few episodes of Diarrhea, No Constipation, No abdominal Pain, No Hematochezia, No Melena Genitourinary : no irregular bleeding, No Dysuria, No Urinary Frequency, No Hematuria, No Urinary Incontinence, No Urgency, No Flank Pain, No Urinary Flow Changes, No Hesitancy Musculoskeletal : No joint pain, No Myalgias, No Joint Swelling Skin : No Skin Lesions, No rash Neuro : No Weakness, No Numbness, No Paresthesias, No Loss of Consciousness, No Dizziness, No Headache Psych : No Anxiety/Panic, No Depression, No SI/HI/AH/VH, No Social Issues, Heme/Lymph: No Bruising, No Bleeding,No Lymphadenopathy Endocrine : No Polyuria, No Polydipsia, No Temperature Intolerance [facility] Past Medical History Medical History Personal history of nicotine dependence Urinary frequency Acute bacterial sinusitis 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 Arthritis of left hip Disc degeneration, lumbar Lumbar facet arthropathy Stenosis, spinal, lumbar Sacroiliac joint pain Lumbar radicular pain Rhinitis Hypothyroidism Anxiety Tachycardia Cough COPD (chronic obstructive pulmonary disease) Smoker Surgical History No pertinent past surgical history Social History Social History Household Members: Children Household Members Other:: daughter Housing: House Are you a primary acute care clinical nurse specialist to a significant other at home: No Do you presently have visiting nurse or other home services: No Alcohol intake: current Alcohol intake frequency: holidays/special occasions only Alcohol type: beer Patient Tobacco Use Status: Former Tobacco user Tobacco use type: Cigarette Cigarette Packs Per Day: 0 Cigarettes Per Day: 2 e-Cigarette/Vaping Use: Never Used Use of substances other than those prescribed or required for medical reasons: No Advance Directives: No Advance Directives Information Provided: Yes Do you have a plan to hurt others: No Plan Current occupational status: retired Current occupation: right handed, retired Sexual orientation: Unable to collect Gender identity: Unable to collect Cognitive needs: No Hearing needs: No Vision needs: Yes (wears glasses to drive.) Physical Exam ED Vital Signs: Vital Signs - 24 hr 07/12/24 03:56 Temperature 97.9 F Pulse Rate 79 Respiratory Rate 18 Blood Pressure 173/75 H Pulse Oximetry 97 Oxygen Delivery Method Room Air BMI result Body Mass Index 30.0 Const Other: Appearance: Alert. Oriented X3. No acute distress. Eyes: Pupils equal, round and reactive to light. ENT: Patient is actively bleeding from the gums upper part. Neck: Normal inspection. Neck supple. No lymph nodes noted. No crepitus CVS: Normal heart rate and rhythm. Pulses normal. Normal S1 and S2 Respiratory: No respiratory distress. Breath sounds normal. No Wheezing. No rales Abdomen: Soft and nontender. No rigidity. No distention. Digital rectal exam shows brown stool Skin: Skin warm and dry. Normal skin color. Normal skin turgor. Extremities: No lower extremity edema. No Lacerations. No Rash Neuro: Oriented X 3. No motor deficit. No sensory deficit. Moving all extremities. No slurred speech. CN 2 through 12 grossly intact Psych: calm, cooperative, normal affect Medications Administered Generic Name Dose Route Start Last Admin Trade Name Freq PRN Reason Stop Dose Admin Tranexamic Acid 1,000 mg/ 260 mls @ 32.5 mls/hr 07/12/24 06:11 07/12/24 06:49 Sodium Chloride IV 07/12/24 14:10 32.5 mls/hr .Q8H ONE Administration Discontinued Medications Generic Name Dose Route Start Last Admin Trade Name Freq PRN Reason Stop Dose Admin Ondansetron HCl 4 mg 07/12/24 04:12 07/12/24 04:22 Ondansetron Hcl 4 Mg/2 Ml Vial IVPUSH 07/12/24 04:13 4 mg ONCE ONE Administration Medical Decision Making Medical Decision Making [facility] Narrative: My interpretation of labs: Patient's hemoglobin is 9.8, previously in May of 2024 11.5. No significant abnormality and chemistry, normal LFTs, normal lipase occult test is heme positive, Patient states that today she already took her Eliquis It is most likely that the patient's GI heme positive stool is secondary to patient's gum bleed. Just in case we will check her abdomen with a CT scan. At this time, patient has a gauze soaked in TXA Sign-out given to my colleague Dr. Fuentes Patient is hemodynamically stable Differential Diagnosis Differential Diagnoses: The differential diagnosis associated with the presentation includes (GI bleed, gum bleed) Admission/Observation Consideration of admission/observation: Escalation of care including admission/observation considered (Patient will likely need admission versus transfer.) Lab Data [facility] Lab Attestation statement: I reviewed the patient's lab results. 07/12/24 04:15 07/12/24 04:15 Labs: Lab Results 07/12/24 07/12/24 07/12/24 Range/Units 04:15 04:17 06:19 WBC 10.6 (4.8-10.8) X10*3/uL RBC 3.00 L (4.20-5.50) X10*6/uL Hgb 9.8 L (12.0-16.0) g/dl Hct 28.0 L (37.0-47.0) % MCV 93.3 (80.0-98.0) fL MCH 32.7 (27.0-33.0) pg MCHC 35.0 (31.0-35.0) g/dl RDW 13.7 (11.0-16.0) % Plt Count 151 L D (160-400) X10*3/uL MPV 9.5 (9.4-12.3) fL Immature Gran % (Auto) 0.6 H (0.0-0.4) % Neut % (Auto) 83.5 H (45-73) % Lymph % (Auto) 8.4 L (20-40) % [place] % (Auto) 5.2 (2-11) % Eos % (Auto) 1.6 (0-4) % Baso % (Auto) 0.7 (0-2) % Lymph # (Auto) 0.9 L (1.2-4.9) X10*3/uL [place] # (Auto) 0.6 (0.1-1.2) X10*3/uL Eos # (Auto) 0.2 (0.0-0.4) X10*3/uL Baso # (Auto) 0.1 (0.0-0.2) X10*3/uL Abs Immat Gran (auto) 0.06 H (0.00-0.03) X10*3/uL Absolute Neuts (auto) 8.9 H (2.0-8.3) x10*3/uL Absolute Nucleated RBC 0.000 (0.0-0.012) X10*3/uL Nucleated RBC % (auto) 0.0 (0.0-0.2) /100WBC PT 13.5 H (10.9-12.4) SEC INR 1.2 H (0.9-1.1) Sodium 137 (135-145) mmol/L Potassium 4.4 (3.3-5.1) mmol/L Chloride 109 H (96-108) mmol/L Carbon Dioxide 13 L (22-29) mmol/L Anion Gap 19 (12-20) BUN 29 H (9-16) mg/dL Creatinine 1.14 (0.5-1.4) mg/dL Estim Creat Clear Calc 50.5 Estimated GFR 48 Random Glucose 84 (60-115) mg/dL Calcium 8.7 D (8.4-10.2) mg/dL Total Bilirubin 0.6 (0.0-1.0) mg/dL AST 38 H (5-31) U/L ALT 20 (0-31) U/L Alkaline Phosphatase 85 (39-117) U/L Total Protein 7.7 (6.5-8.0) g/dL Albumin 3.9 (3.5-5.0) g/dL Lipase 27 (8-78) U/L Stool Occult Blood POSITIVE (NEGATIVE) Critical Care Time Critical Care Time Critical Care Time: Yes Total Critical Care Time: 60 Attestation: I have personally provided critical care time. Time includes review of lab data, radiology results, discussion with consultants, and monitoring for potential decompensation. Intervention performed as documented. Discharge Plan Discharge Clinical Impression: Bleeding gums, Anemia Patient Disposition: Still a Patient Prescriptions: No Action aspirin [Adult Low Dose Aspirin] 81 mg tablet,delayed release (DR/EC) 81 mg PO DAILY Qty: 30 0RF (DME) nebulizers [facility] [place] [facility] See Rx Instructions .Route Qty: 1 0RF Rx Instructions: Use nebulizer q 6 hrs prn wheezing, sob, cough DX: COPD (DME) nebulizer accessories Kit See Rx Instructions .Route Qty: 1 0RF Rx Instructions: Use nebulizer q 6 hrs prn wheezing, sob, cough DX: COPD omeprazole 20 mg capsule,delayed release(DR/EC) 20 mg PO BID Qty: 180 1RF albuterol sulfate 90 mcg/actuation HFA aerosol inhaler 2 puff PO Q4-6H PRN (Reason: for wheezing) Qty: 8.5 0RF amlodipine 10 mg tablet 10 mg PO DAILY Qty: 90 1RF gabapentin 600 mg tablet 600 mg PO BID Qty: 180 2RF atenolol 50 mg tablet 50 mg PO BID 90 Days Qty: 180 2RF sertraline 100 mg tablet 100 mg PO DAILY Qty: 90 1RF aliskiren 150 mg tablet 150 mg PO DAILY Qty: 90 0RF clonidine HCl 0.2 mg tablet 0.2 mg PO BID Qty: 60 0RF levothyroxine 75 mcg tablet 75 mcg PO DAILY Qty: 90 0RF bupropion HCl 200 mg tablet sustained-release 12 hr 200 mg PO QAM Qty: 90 2RF Xarelto 2.5 mg tablet 2.5 mg PO BID hydralazine 50 mg tablet 50 mg PO TID Qty: 90 3RF rosuvastatin 10 mg tablet 10 mg PO DAILY Qty: 90 1RF budesonide 0.25 mg/2 mL suspension for nebulization 0.25 mg inhalation BID Qty: 60 2RF fluticasone propionate [Flonase Allergy Relief] 50 mcg/actuation spray,suspension 2 spray intranasal DAILY PRN (Reason: Allergic Rhinitis ) Rx Instructions: administer into each nostril ipratropium-albuterol 0.5 mg-3 mg(2.5 mg base)/3 mL solution for nebulization 3 ml inhalation QID PRN (Reason: wheezing) 30 Days Qty: 180 3RF nystatin 100,000 unit/mL suspension 5 ml PO TID PRN Rx Instructions: swish and swallow Print Language: Citizen Of [place]
[2024-07-12 08:27] LABS: MANUAL DIFF FLAG NO
[2024-07-12] MEDS: iohexoL 350 MG/ML 100 ML INFUS..BTL IV (08:27)
[2024-07-12 08:30] LABS: Basophils Percent Auto 0.3 % (0-2); Eosinophils Percent Auto 0.1 % (0-4); Hematocrit 26.5 % (37.0-47.0); Hemoglobin 9.2 g/dl (12.0-16.0); Imm Gran Abs Auto 0.08 X10*3/uL (0.00-0.03); Imm Gran Pct Auto 1.1 % (0.0-0.4); Lymphocytes Absolute Auto 0.6 X10*3/uL (1.2-4.9); Lymphocytes Percent Auto 8.3 % (20-40); Mean Corpuscular HGB Conc 34.7 g/dl (31.0-35.0); Mean Corpuscular Hemoglobin 32.7 pg (27.0-33.0); Mean Corpuscular Volume 94.3 fL (80.0-98.0); Mean Platelet Volume 9.3 fL (9.4-12.3); Monocytes Absolute Auto 0.2 X10*3/uL (0.1-1.2); Monocytes Percent Auto 2.4 % (2-11); Neutrophils Absolute Auto 6.6 x10*3/uL (2.0-8.3); Neutrophils Percent Auto 87.8 % (45-73); Platelet Count 132 X10*3/uL (160-400); Red Blood Count 2.81 X10*6/uL (4.20-5.50); Red Cell Distribution Width 13.5 % (11.0-16.0); White Blood Count 7.6 X10*3/uL (4.8-10.8)
--- NOTE | 2024-07-12 09:19 | PC.NURSE ---
Per Zhane Fuentes MD - only administer 500ccs total of the ordered 1,000cc fluids bag.
[2024-07-12] MEDS: 0.9 % Sodium Chloride 1,000 ML 250 ML IV (09:23)
[2024-07-12 11:41] LABS: Iron 288 mcg/dL (30-160); Percent Iron Saturation 83 % (15-50); Total Iron Binding Capacity 346 mcg/dL (228-428); Unsaturated Iron Binding 58 ug/dL
[2024-07-12 11:52] LABS: Ferritin 55 ng/mL (10-250)
[2024-07-12] MEDS: Lidocaine HCl 1 % MPF 5 ML VIAL SUBCUT (12:15)
--- NOTE | 2024-07-12 13:02 | PM.IMHP ---
History of Present Illness Date of Service: 07/12/24 Chief Complaint: Bleeding gums 69-year-old female presenting with bleeding gums and black stools. Patient had extraction of 9 upper teeth 10 days ago and has had oozing since then. She is on Eliquis for PAD/PVD and has noted some black stools. Denies any abdominal pain, vomiting, diarrhea. Did report some nausea with swallowing of blood. In the ER, she received tranexamic acid applied to the gums and 1 suture to upper gum area to stop active bleeding. Abdominal CT negative for any acute abnormality. At this time her H&H is stable and does not require blood transfusion. Will admit for further management and treatment of bleeding gums and black stools. Review of Systems Review of Systems: Denies any recent fever chills or decrease in appetite respiratory denies any shortness of breath or cough cardiovascular denies chest pain gastrointestinal denies any dysphagia abdominal pain nausea vomiting or diarrhea genitourinary denies any dysuria frequency or hematuria musculoskeletal denies any joint pain or swelling neuropsych denies any weakness or seizures all other systems reviewed are negative [facility] Medical History (Updated 07/12/24 @ 13:18 by Collette Victoria NP) Personal history of nicotine dependence Acute bacterial sinusitis 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 Arthritis of left hip Disc degeneration, lumbar Lumbar facet arthropathy Stenosis, spinal, lumbar Sacroiliac joint pain Lumbar radicular pain Rhinitis Hypothyroidism Anxiety Tachycardia Cough COPD (chronic obstructive pulmonary disease) Surgical History No pertinent past surgical history Social History Household Members: Children Household Members Other:: daughter Housing: House Are you a primary home care provider to a significant other at home: No Do you presently have visiting nurse or other home services: No Alcohol intake: current Alcohol intake frequency: holidays/special occasions only Alcohol type: beer Patient Tobacco Use Status: Former Tobacco user Tobacco use type: Cigarette Cigarette Packs Per Day: 0 Cigarettes Per Day: 2 e-Cigarette/Vaping Use: Never Used Use of substances other than those prescribed or required for medical reasons: No Currently Displaying Signs/Symptoms of Drug Intoxication Withdrawal: No Have you been hit, kicked, punched, or otherwise hurt by someone within the past year? If so, by whom?: No Do you feel safe in your current relationship?: No Current Relationship Is there a partner from a previous relationship who is making you feel unsafe now?: No Are you made to feel afraid or neglected: No Advance Directives: No Advance Directives Information Provided: Yes Do you have a plan to hurt others: No Plan Recently lost weight without trying: No Eating poorly because of decreased appetite: No Nutrition Risks: No Nutritional Risk Patient : No : No Poor oral hygiene: No service: No Current occupational status: retired Current occupation: right handed, retired Sexual orientation: Unable to collect Gender identity: Unable to collect Cognitive needs: No Hearing needs: No Vision needs: Yes (wears glasses to drive.) Meds Allergies Allergy/AdvReac Type Severity Reaction Status Date / Time codeine Allergy Unknown Unknown Verified 07/12/24 04:18 Active Medications: Current Medications Acetaminophen (Acetaminophen 325 Mg Tablet) 650 mg PO Q6H PRN PRN Reason: Pain, Mild 1-3,fever,headache Calcium Carbonate (Calcium Carbonate 750 Mg Tab.Chew) 750 mg PO Q4H PRN PRN Reason: Heartburn Tranexamic Acid 1,000 mg/ (Sodium Chloride) 260 mls @ 32.5 mls/hr IV .Q8H ONE Stop: 07/12/24 14:10 Last Admin: 07/12/24 06:49 Dose: 32.5 mls/hr Tranexamic Acid 1,000 mg/ (Sodium Chloride) 260 mls @ 32.5 mls/hr IV .Q8H ONE Stop: 07/12/24 17:05 Last Admin: 07/12/24 09:36 Dose: 32.5 mls/hr Magnesium Hydroxide (Milk Of Magnesia 30 Ml Oral.Susp) 30 ml PO DAILY PRN PRN Reason: Constipation Melatonin (Melatonin 3 Mg Tablet) 6 mg PO BEDTIME PRN PRN Reason: Insomnia Ondansetron HCl (Ondansetron Hcl 4 Mg/2 Ml Vial) 4 mg IVPUSH Q8H PRN PRN Reason: Nausea and Vomiting Sodium Chloride (0.9 % Sodium Chloride Flush 3 Ml Syringe) [facility] ?Medication ?Instructions ?Recorded ?Confirmed ?Last Taken ?Type rivaroxaban 2.5 mg tablet (Xarelto) 2.5 mg PO BID 08/27/23 07/12/24 Unknown History nystatin 100,000 unit/mL oral 5 ml PO TID PRN thrush 07/07/24 07/12/24 Unknown History suspension gabapentin 600 mg tablet 1,200 mg PO BEDTIME 07/12/24 07/12/24 Unknown History ipratropium 0.5 mg-albuterol 3 mg 3 ml inhalation Q6H PRN wheezing 07/12/24 07/12/24 Unknown History (2.5 mg base)/3 mL nebulization soln oxycodone-acetaminophen 5 mg-325 1 tab PO Q6H PRN pain 07/12/24 07/12/24 Unknown History mg tablet penicillin V potassium 500 mg 500 mg PO QID 07/12/24 07/12/24 Unknown History tablet Physical Exam Vital Signs and Narrative: Vital Signs: Last Vital Signs Temp 99.3 F 07/12/24 12:13 Pulse 79 07/12/24 12:13 Resp 16 07/12/24 12:13 BP 165/65 H 07/12/24 12:13 Pulse Ox 97 07/12/24 12:13 O2 Del Method Room Air 07/12/24 12:13 BMI result Body Mass Index 30.0 Appearing in no acute distress head is normocephalic atraumatic eyes pupils are PERRLA sclera is anicteric mouth throat mucous membranes are intact and moist neck is supple no lymphadenopathy, no JVD noted lung sounds are clear to auscultation heart regular rate rhythm, clear S1, S2 positive bowel sounds, abdomen is soft, nontender neuro patient is alert x3, no focal deficits bleeding gums with noted clots Results Labs 07/13/24 05:11 07/13/24 05:11 Labs: Laboratory Results - last 24 hr 07/12/24 07/12/24 07/12/24 04:15 04:17 06:19 MCV 93.3 MCH 32.7 MCHC 35.0 RDW 13.7 Plt Count 151 L D MPV 9.5 Immature Gran % (Auto) 0.6 H Neut % (Auto) 83.5 H Lymph % (Auto) 8.4 L [place] % (Auto) 5.2 Eos % (Auto) 1.6 Baso % (Auto) 0.7 Lymph # (Auto) 0.9 L [place] # (Auto) 0.6 Eos # (Auto) 0.2 Baso # (Auto) 0.1 Abs Immat Gran (auto) 0.06 H Absolute Neuts (auto) 8.9 H Absolute Nucleated RBC 0.000 Nucleated RBC % (auto) 0.0 PT 13.5 H INR 1.2 H Anion Gap 19 Estim Creat Clear Calc 50.5 Estimated GFR 48 Random Glucose 84 Calcium 8.7 D Iron 288 H TIBC 346 % Saturation 83 H Unsat Iron Binding 58 Ferritin 55 Total Bilirubin 0.6 AST 38 H ALT 20 Alkaline Phosphatase 85 Total Protein 7.7 Albumin 3.9 Lipase 27 Stool Occult Blood POSITIVE 07/12/24 08:23 MCV 94.3 MCH 32.7 MCHC 34.7 RDW 13.5 Plt Count 132 L MPV 9.3 L Immature Gran % (Auto) 1.1 H Neut % (Auto) 87.8 H Lymph % (Auto) 8.3 L [place] % (Auto) 2.4 Eos % (Auto) 0.1 Baso % (Auto) 0.3 Lymph # (Auto) 0.6 L [place] # (Auto) 0.2 Eos # (Auto) 0.0 Baso # (Auto) 0.0 Abs Immat Gran (auto) 0.08 H Absolute Neuts (auto) 6.6 Absolute Nucleated RBC 0.000 Nucleated RBC % (auto) 0.0 PT INR Anion Gap Estim Creat Clear Calc Estimated GFR Random Glucose Calcium Iron TIBC % Saturation Unsat Iron Binding Ferritin Total Bilirubin AST ALT Alkaline Phosphatase Total Protein Albumin Lipase Stool Occult Blood Assessment and Plan (1) HTN (hypertension): Qualifiers: Hypertension type: unspecified Qualified Code(s): I10 - Essential (primary) hypertension Status: Acute Plan 69 year old women admitted with gum bleeding and black stool Bleeding gums recently had 9 teeth extracted ED provider placed a suture in one of the sockets that helped stop bleeding, TMA also applied to gums Black stool likely from swallowing blood no abd pain neg abd ct will consult GI monitor HH PAD/PVD Eliquis on hold due to bleeding gums Continue statin and beta-junior Hypertension Continue home medications Hypothyroidism Continue levothyroxine GERD Continue PPI DVT prophylaxis with mechanical compression boots Full code Quality Stroke Does the patient have a stroke diagnosis?: No VTE Prior VTE?: No VTE Risk Level:: Medical - moderate - high VTE Device Contraindication: N/A - Device Ordered VTE Drug Contraindication: Treatment Not Indicated
[2024-07-12 13:36] LABS: MANUAL DIFF FLAG NO
[2024-07-12 13:38] LABS: Basophils Percent Auto 0.2 % (0-2); Hematocrit 24.5 % (37.0-47.0); Hemoglobin 8.3 g/dl (12.0-16.0); Imm Gran Abs Auto 0.02 X10*3/uL (0.00-0.03); Imm Gran Pct Auto 0.4 % (0.0-0.4); Lymphocytes Absolute Auto 0.6 X10*3/uL (1.2-4.9); Lymphocytes Percent Auto 11.8 % (20-40); Mean Corpuscular HGB Conc 33.9 g/dl (31.0-35.0); Mean Corpuscular Hemoglobin 32.3 pg (27.0-33.0); Mean Corpuscular Volume 95.3 fL (80.0-98.0); Mean Platelet Volume 9.8 fL (9.4-12.3); Monocytes Absolute Auto 0.3 X10*3/uL (0.1-1.2); Monocytes Percent Auto 5.5 % (2-11); Neutrophils Absolute Auto 4.3 x10*3/uL (2.0-8.3); Neutrophils Percent Auto 82.1 % (45-73); Platelet Count 113 X10*3/uL (160-400); Red Blood Count 2.57 X10*6/uL (4.20-5.50); Red Cell Distribution Width 13.9 % (11.0-16.0); White Blood Count 5.3 X10*3/uL (4.8-10.8)
[2024-07-12 13:39] LABS: Venous Blood Gas Refer to POC result
[2024-07-12 13:41] LABS: VBG Base Excess -6.1 mmol/L; VBG HCO3 15 mmol/L (22-26); VBG pCO2 20 mmHg; VBG pH 7.48 (7.32-7.43); VBG pO2 73 mmHg
[2024-07-12 13:55] LABS: Anion Gap 18 (12-20); Blood Urea Nitrogen 42 mg/dL (9-16); Calcium 8.4 mg/dL (8.4-10.2); Carbon Dioxide 10 mmol/L (22-29); Chloride 114 mmol/L (96-108); Creatinine Clr Calc Pharmacy 58.7; Estimated Glomerular Filt Rate 57; Glucose Random 90 mg/dL (60-115); Potassium 4.8 mmol/L (3.3-5.1); Sodium 137 mmol/L (135-145)
--- NOTE | 2024-07-12 14:22 | PHA.MEDREC ---
Addendum entered by Orly Sparks RPh 07/12/24 15:00: REVIEWED BY [facility] Original Note: Pharmacy Consult ? Medication Reconciliation Pharmacy has completed the medication reconciliation. Spoke with patient to confirm medications. She is not on Pulmicort (too costly), she is on budesonide neb solution bid. She reports she has one dose left of the penicillin. She takes gabapentin 2 tabs at bedtime instead of bid. She confirmed that she is still on atenolol 50 mg bid. Last pick up driver per [facility] 02/14/24 and she does have 3 refills left. She last took her medications yesterday morning.
--- NOTE | 2024-07-12 16:22 | PC.NURSE ---
Pt. c/o stabbing mid upper abd pain. DUARTE Toney notified
[2024-07-12] MEDS: Morphine Sulfate 2 MG/ML CARTRIDGE IVPUSH ×2 (16:52→22:16)
[2024-07-12] MEDS: diphenhydrAMINE HCL 50 MG/ML VIAL 25 MG IVPUSH (16:53)
--- NOTE | 2024-07-12 20:35 | MHC.EDTECH ---
This tech took over care of pt at 1900,rounded and introduced self to pt,vitals taken,BP is elevated 210/67 RT arm/ 207/67 LT arm,RN was made aware, bed side commode was full of urine,and med soft bm (dark green in color),emptied at this time,pt refused dinner tray,RN aware pt drank 240MLS, belongings list completed,copy placed in chart,call sorensen in reach
[2024-07-12] MEDS: atenoloL 50 MG TABLET PO (20:48)
[2024-07-12] MEDS: cloNIDine HCL 0.2 MG TABLET PO (20:48)
[2024-07-12] MEDS: Gabapentin 600 MG TABLET 1200 MG PO (20:48)
[2024-07-12] MEDS: hydrALAZINE HCl 50 MG TABLET PO (20:48)
[2024-07-12] MEDS: Omeprazole 20 MG CAPSULE.DR PO (22:07)
[2024-07-12] MEDS: Labetalol HCL 100 MG/20 ML VIAL 10 MG IVPUSH (22:08)
[2024-07-13] VITALS (13 sets, daily range): BP systolic 129–188; BP diastolic 50–77; PULSE 68–78; RESP 14–20; TEMP 36.2–37.1; O2SAT 95–99
[2024-07-13 05:23] LABS: MANUAL DIFF FLAG NO
[2024-07-13 05:26] LABS: Basophils Percent Auto 0.8 % (0-2); Eosinophils Percent Auto 0.8 % (0-4); Hematocrit 21.4 % (37.0-47.0); Hemoglobin 7.2 g/dl (12.0-16.0); Imm Gran Abs Auto 0.03 X10*3/uL (0.00-0.03); Imm Gran Pct Auto 0.6 % (0.0-0.4); Lymphocytes Absolute Auto 1.6 X10*3/uL (1.2-4.9); Lymphocytes Percent Auto 30.9 % (20-40); Mean Corpuscular HGB Conc 33.6 g/dl (31.0-35.0); Mean Corpuscular Volume 95.1 fL (80.0-98.0); Mean Platelet Volume 9.8 fL (9.4-12.3); Monocytes Absolute Auto 0.7 X10*3/uL (0.1-1.2); Monocytes Percent Auto 13.6 % (2-11); Neutrophils Absolute Auto 2.7 x10*3/uL (2.0-8.3); Neutrophils Percent Auto 53.3 % (45-73); Platelet Count 101 X10*3/uL (160-400); Red Blood Count 2.25 X10*6/uL (4.20-5.50); Red Cell Distribution Width 13.9 % (11.0-16.0); White Blood Count 5.1 X10*3/uL (4.8-10.8)
[2024-07-13 05:47] LABS: Alanine Aminotransferase 12 U/L (0-31); Albumin Level 3.3 g/dL (3.5-5.0); Alkaline Phosphatase 62 U/L (39-117); Anion Gap 11 (12-20); Aspartate Amino Transferase 26 U/L (5-31); Bilirubin Total 0.4 mg/dL (0.0-1.0); Blood Urea Nitrogen 42 mg/dL (9-16); Calcium 8.1 mg/dL (8.4-10.2); Carbon Dioxide 20 mmol/L (22-29); Chloride 112 mmol/L (96-108); Creatinine Clr Calc Pharmacy 45.3; Estimated Glomerular Filt Rate 42; Glucose Random 102 mg/dL (60-115); Potassium 3.7 mmol/L (3.3-5.1); Sodium 139 mmol/L (135-145); Total Protein 6.4 g/dL (6.5-8.0)
[2024-07-13] MEDS: Levothyroxine Sodium 75 MCG TABLET PO (07:12)
[2024-07-13] MEDS: Omeprazole 20 MG CAPSULE.DR PO ×2 (07:12→16:16)
[2024-07-13] MEDS: atenoloL 50 MG TABLET PO ×2 (09:47→20:02)
[2024-07-13] MEDS: amLODIPine Besylate 10 MG TABLET PO (09:47)
[2024-07-13] MEDS: cloNIDine HCL 0.2 MG TABLET PO ×2 (09:47→20:01)
[2024-07-13] MEDS: buPROPion HCl XL 150 MG TAB.ER.24H PO (09:47)
[2024-07-13] MEDS: hydrALAZINE HCl 50 MG TABLET PO ×3 (09:47→20:01)
[2024-07-13] MEDS: Atorvastatin Calcium 40 MG TABLET PO (09:47)
[2024-07-13] MEDS: 0.9 % Sodium Chloride Flush 3 ML SYRINGE IVFLUSH ×3 (09:48→20:02)
[2024-07-13] MEDS: Sertraline HCL 100 MG TABLET PO (09:48)
--- NOTE | 2024-07-13 11:23 | HO.PM.IMPN ---
Subjective Subjective Date of Service: 07/13/24 Review of Systems Follow gum and GI bleeding abd pain no nvd Physical Exam Vital Signs: Vital Signs: Last Vital Signs Temp 97.5 F 07/13/24 08:00 Pulse 78 07/13/24 08:00 Resp 20 07/13/24 08:00 BP 177/77 H 07/13/24 08:00 Pulse Ox 99 07/13/24 08:00 O2 Del Method Room Air 07/13/24 08:00 BMI result Body Mass Index 30.0 Appearing in no acute distress lung sounds are clear to auscultation heart regular rate rhythm, clear S1, S2 positive bowel sounds, abdomen is soft, nontender neuro patient is alert x3, no focal deficits Objective Data Active Medications Acetaminophen (Acetaminophen 325 Mg Tablet) 650 mg PO Q6H PRN PRN Reason: Pain, Mild 1-3,fever,headache Albuterol/Ipratropium (Albuterol/Iprat 2.5/0.5mg 3 Ml Ampul.Neb) 3 ml INHALE Q6H PRN PRN Reason: wheezing Amlodipine Besylate (Amlodipine Besylate 10 Mg Tablet) 10 mg PO DAILY [facility]; Protocol Last Admin: 07/13/24 09:47 Dose: 10 mg Documented By: YAMINI Atenolol (Atenolol 50 Mg Tablet) 50 mg PO BID [facility]; Protocol Last Admin: 07/13/24 09:47 Dose: 50 mg Documented By: YAMINI Atorvastatin Calcium (Atorvastatin Calcium 40 Mg Tablet) 40 mg PO DAILY [facility] Last Admin: 07/13/24 09:47 Dose: 40 mg Documented By: YAMINI Budesonide (Budesonide 0.25 Mg/2 Ml Ampul.Neb) 0.25 mg INHALE BID [facility] Last Admin: 07/13/24 08:51 Dose: Not Given Documented By: JUSTINE Non-Admin Reason: Med Not Available Bupropion HCl (Bupropion Hcl Xl 150 Mg Tab.Er.24h) 150 mg PO DAILY [facility] Last Admin: 07/13/24 09:47 Dose: 150 mg Documented By: YAMINI Calcium Carbonate (Calcium Carbonate 750 Mg Tab.Chew) 750 mg PO Q4H PRN PRN Reason: Heartburn Clonidine HCl (Clonidine Hcl 0.2 Mg Tablet) 0.2 mg PO BID [facility]; Protocol Last Admin: 07/13/24 09:47 Dose: 0.2 mg Documented By: YAMINI Gabapentin (Gabapentin 600 Mg Tablet) 1,200 mg PO BEDTIME [facility] Last Admin: 07/12/24 20:48 Dose: 1,200 mg Documented By: DEVON Hydralazine HCl (Hydralazine Hcl 50 Mg Tablet) 50 mg PO TID [facility]; Protocol Last Admin: 07/13/24 09:47 Dose: 50 mg Documented By: YAMINI Levothyroxine Sodium (Levothyroxine Sodium 75 Mcg Tablet) 75 mcg PO DAILY@0600 [facility] Last Admin: 07/13/24 07:12 Dose: 75 mcg Documented By: SHIKHA Magnesium Hydroxide (Milk Of Magnesia 30 Ml Oral.Susp) 30 ml PO DAILY PRN PRN Reason: Constipation Melatonin (Melatonin 3 Mg Tablet) 6 mg PO BEDTIME PRN PRN Reason: Insomnia Morphine Sulfate (Morphine Sulfate 2 Mg/Ml Cartridge) 2 mg IVPUSH Q4H PRN; Protocol PRN Reason: Pain, Severe (Pain Scale 7-10) Last Admin: 07/12/24 22:16 Dose: 2 mg Documented By: DEVON Omeprazole (Omeprazole 20 Mg Capsule.Dr) 20 mg PO BID@0630,1630 [facility] Last Admin: 07/13/24 07:12 Dose: 20 mg Documented By: SHIKHA Ondansetron HCl (Ondansetron Hcl 4 Mg/2 Ml Vial) 4 mg IVPUSH Q8H PRN PRN Reason: Nausea and Vomiting Last Admin: 07/12/24 13:05 Dose: 4 mg Documented By: ED Sertraline HCl (Sertraline Hcl 100 Mg Tablet) 100 mg PO DAILY [facility] Last Admin: 07/13/24 09:48 Dose: 100 mg Documented By: YAMINI Sodium Chloride (0.9 % Sodium Chloride Flush 3 Ml Syringe) 3 ml IVFLUSH [facility] Last Admin: 07/13/24 09:48 Dose: 3 ml Documented By: YAMINI Labs 07/13/24 05:11 07/13/24 05:11 Labs: Laboratory Results - last 24 hr 07/12/24 07/12/24 07/12/24 04:15 13:32 13:35 MCV 95.3 MCH 32.3 MCHC 33.9 RDW 13.9 Plt Count 113 L MPV 9.8 Immature Gran % (Auto) 0.4 Neut % (Auto) 82.1 H Lymph % (Auto) 11.8 L [place] % (Auto) 5.5 Eos % (Auto) 0.0 Baso % (Auto) 0.2 Lymph # (Auto) 0.6 L [place] # (Auto) 0.3 Eos # (Auto) 0.0 Baso # (Auto) 0.0 Abs Immat Gran (auto) 0.02 Absolute Neuts (auto) 4.3 Absolute Nucleated RBC 0.000 Nucleated RBC % (auto) 0.0 VBG pH 7.48 H VBG pCO2 20 VBG pO2 73 VBG HCO3 15 L VBG O2 Saturation 96.0 VBG Base Excess -6.1 Anion Gap 18 Estim Creat Clear Calc 58.7 Estimated GFR 57 Random Glucose 90 Calcium 8.4 Iron 288 H TIBC 346 % Saturation 83 H Unsat Iron Binding 58 Ferritin 55 Total Bilirubin AST ALT Alkaline Phosphatase Total Protein Albumin Blood Type Antibody Screen Crossmatch 07/13/24 07/13/24 05:11 07:57 MCV 95.1 MCH 32.0 MCHC 33.6 RDW 13.9 Plt Count 101 L MPV 9.8 Immature Gran % (Auto) 0.6 H Neut % (Auto) 53.3 Lymph % (Auto) 30.9 [place] % (Auto) 13.6 H Eos % (Auto) 0.8 Baso % (Auto) 0.8 Lymph # (Auto) 1.6 [place] # (Auto) 0.7 Eos # (Auto) 0.0 Baso # (Auto) 0.0 Abs Immat Gran (auto) 0.03 Absolute Neuts (auto) 2.7 Absolute Nucleated RBC 0.000 Nucleated RBC % (auto) 0.0 VBG pH VBG pCO2 VBG pO2 VBG HCO3 VBG O2 Saturation VBG Base Excess Anion Gap 11 L Estim Creat Clear Calc 45.3 Estimated GFR 42 Random Glucose 102 Calcium 8.1 L Iron TIBC % Saturation Unsat Iron Binding Ferritin Total Bilirubin 0.4 AST 26 ALT 12 Alkaline Phosphatase 62 Total Protein 6.4 L Albumin 3.3 L Blood Type B Negative Antibody Screen NEGATIVE Crossmatch See Detail Assessment and Plan (1) HTN (hypertension): Status: Acute Plan 69 year old women admitted with gum bleeding and black stool Abd pain no nvd abd ct showing heavy atheromatous plaquing in the nonaneurysmal aorta. Calcification above and at the level of the celiac artery and SMA appears to be nearly occlusive. will discuss with GI lactic acid pending Bleeding gums. Resolved recently had 9 teeth extracted ED provider placed a suture in one of the sockets that helped stop bleeding, TMA also applied to gums Black stool likely from swallowing blood neg abd ct will consult GI monitor HH PAD/PVD Eliquis on hold due to bleeding gums Continue statin and beta-junior Hypertension Continue home medications Hypothyroidism Continue levothyroxine GERD Continue PPI DVT prophylaxis with mechanical compression boots attending Dr. Oviedo Full code Quality Stroke Does the patient have a stroke diagnosis?: No VTE Prior VTE?: No VTE Risk Level:: Medical - moderate - high VTE Device Contraindication: N/A - Device Ordered VTE Drug Contraindication: Treatment Not Indicated
[2024-07-13] MEDS: Morphine Sulfate 2 MG/ML CARTRIDGE IVPUSH ×2 (11:40→16:31)
--- NOTE | 2024-07-13 12:00 | MHC.CM.PN ---
pt lives w/dgter pt is independent will not need servies when dcd dc plan home no servies
[2024-07-13 12:05] LABS: Lactic Acid 1.1 mmol/L (0.5-2.0)
--- NOTE | 2024-07-13 17:55 | P.EN_ITS ---
Event Note Date of Service: 07/13/24 Event Note: GI Consult-Full note dictated-History from patient and EMR. Imp: Given her clinical history, I feel that her melena and anemia are in relation to her having swallowed blood in relation to her bleeding from her gums after the recent oral surgery along with the continuation of her aspirin and resumption of her Xarelto. She already uses Prilosec BID for reflux and is not having any new upper GI symptoms. An upper endoscopy in 2017 was unremarkable. She denies any bleeding subsequent to the suturing of the bleeding oral surgical area by the ER MD. She is tolerating a regular diet. Rec: Hold off on an upper endoscopy. F/U Hgb. Continue her PPI. Diet as tolerat ed. If anything changes with drop in Hgb and evidence of UGI bleeding please call me for reevaluation. D/W patient in detail and she is comfortable with that plan. Thanks Time Spent With Patient Time: Total time managing care of this patient today ____ minutes.
[2024-07-13] MEDS: Melatonin 3 MG TABLET 6 MG PO (20:02)
[2024-07-13] MEDS: Gabapentin 600 MG TABLET 1200 MG PO (20:02)
[2024-07-14 03:56] VITALS: BP 130/68; PULSE 87; RESP 18; TEMP 36.3; O2SAT 95
--- NOTE | 2024-07-14 05:10 | CONS_ITS ---
DATE OF SERVICE: 07/13/2024 REASON FOR CONSULTATION: Melena and anemia. HISTORY OF PRESENT ILLNESS: The patient is a 69-year-old female on chronic Xarelto and 81mg aspirin in relation to vascular disease. The patient reports that she was in her usual state of health up until the past 24 to 48 hours when she began having some active bleeding from a recent oral surgery site in her upper gum area. During this time, she describes significant bleeding with swallowing of the blood and with subsequent episodes of melena and occasional nausea with vomiting. Due to the persistence of those symptoms she came to the ER for evaluation. She describes having undergone oral surgery on June 02 with removal of multiple teeth from her upper gums. She describes having stopped the Xarelto for 3 days prior to the procedure, but did not stop her baby aspirin. After the procedure, she held the Xarelto for another 2 or 3 days before resuming it on July 06. She continued the 81 mg aspirin daily as well. The patient describes that about 2 days before admission, she noted some ongoing bleeding from her gums with subsequent swallowing of blood. She describes some episodes of nausea with vomiting, but also having had black stools. After arrival in the ER, she was treated with a dose of tranexamic acid as well as having a suture placed in the area of active bleeding from the gum surgery. Since having the suture placed, she does report that her bleeding has subsided. She has not seen any black stools or bleeding since before midnight last night. She has been tolerating a regular diet all day. She has had no vomiting. She is on chronic Prilosec twice a day for reflux and underwent a basically negative upper endoscopy in 2017, with Dr. Gill. She presently denies any significant heartburn nor dysphagia. She denies any abdominal pain nor jaundice. She has had some baseline constipation, but generally her bowel movements have been fairly stable. She denies any previous history of GI bleeding or ulcer disease. MEDICATIONS: At home included Xarelto, aliskiren, amlodipine, aspirin 81 mg, atenolol, ibuprofen, clonidine, gabapentin, hydralazine, levothyroxine, nystatin, omeprazole 20 mg b.i.d., oxycodone, penicillin, Xarelto, rosuvastatin, sertraline. PAST MEDICAL/SURGICAL HISTORY: Includes peripheral vascular disease with multiple stents placed in her aorta and lower extremities by her history. History of COPD. She is followed by Dr. Alvarenga in the [facility] for that. 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 Hypothyroidism. Anxiety. Back pain. Her surgeries include , appendectomy, and the multiple IR vascular procedures for stent placement. She denies any history of MD, stroke, nor diabetes. SOCIAL HISTORY: She is a . She presently does not smoke. She has an occasional beer, but denies any daily or significant alcohol use in the past. REVIEW OF SYSTEMS: CONSTITUTIONAL: She has been feeling somewhat weak at home. CARDIAC: No chest pain. PULMONARY: No cough. No hemoptysis. GI: As above. URINARY: No dysuria. No hematuria. PHYSICAL EXAMINATION: GENERAL: The patient is a pleasant, pale, alert female. SKIN: Warm and dry. Nonjaundiced. Anicteric sclerae. CHEST: Clear. CARDIAC: Normal S1, S2. ABDOMEN: Soft. Nondistended. Nontender without mass. EXTREMITIES: Without edema. ADMITTING LABS: Hemoglobin 7.2 with MCV of 95. On July 12, hemoglobin was 9.8 when she first arrived in the ER. It had been 11.5 on June 23. White blood cell count 5.1, platelets 101,000. Normal electrolytes. BUN 42, creatinine 1.3. Iron was 288 with an iron saturation of 83% and a ferritin level was 55. LFTs are normal. She did have a CT scan of the abdomen and pelvis yesterday. That report describes some liver changes consistent with possible cirrhosis given some associated nodularity on her CT scan imaging of the liver. There is no focal liver lesion. She does have gallstones, but no sign of any biliary disease. The pancreas and spleen appeared normal. Peripheral vascular disease was noted with multiple vessels with calcifications. There was no report of any ascites. There was no sign of any active GI bleeding. IMPRESSION: In regard to the patient's presentation with some melena and anemia, I advised her that I do not feel she is having any active upper gastrointestinal bleeding based on the clinical history of her having active bleeding from an oral surgery site while she has been back on her Xarelto and 81 mg aspirin. She is already on b.i.d. Prilosec and has no new upper gastrointestinal complaints, so therefore I do not think this is reflective of an upper gastrointestinal bleed. I suspect she has had some significant bleeding from the oral surgery site while on the Xarelto and low-dose aspirin, which she has swallowed, and has had black stool on that basis. I think the yield on upper endoscopy in this regard would be quite low. Therefore, I advised her that I do not think she needs to have an upper endoscopy at this point, and she should be continued to be observed to be sure her blood count responds appropriately to the transfusion. In regard to her underlying possible liver disease as described on the CT scan, that would account for some relative thrombocytopenia that was noted on her CBCs. She may have a component of some fatty liver. She should have an outpatient workup for her liver disease at some point, but I do not think that needs to be done here. I would continue to keep her on her diet and if her blood counts have improved tomorrow, and things appear otherwise stable, she could be discharged. Please contact me if it appears that she is having any new issues, that would require an upper endoscopy such as signs of definitive active upper GI bleeding. This has been discussed with the patient in detail and she is comfortable with that plan. Thank you for the consultation. MD POLLY Bustamante/MANUELA / [id number] MTDD
[2024-07-14] MEDS: Levothyroxine Sodium 75 MCG TABLET PO (05:20)
[2024-07-14] MEDS: Omeprazole 20 MG CAPSULE.DR PO (05:20)
[2024-07-14 07:27] LABS: Hematocrit 24.1 % (37.0-47.0); Hemoglobin 8.1 g/dl (12.0-16.0); Mean Corpuscular HGB Conc 33.6 g/dl (31.0-35.0); Mean Corpuscular Hemoglobin 32.4 pg (27.0-33.0); Mean Corpuscular Volume 96.4 fL (80.0-98.0); Mean Platelet Volume 10.4 fL (9.4-12.3); Red Cell Distribution Width 13.9 % (11.0-16.0); White Blood Count 5.1 X10*3/uL (4.8-10.8)
[2024-07-14 07:32] LABS: Platelet Count 99 X10*3/uL (160-400)
[2024-07-14 07:41] VITALS: PULSE 79; RESP 20; TEMP 36.9
[2024-07-14 07:44] LABS: Anion Gap 10 (12-20); Blood Urea Nitrogen 35 mg/dL (9-16); Calcium 8.4 mg/dL (8.4-10.2); Carbon Dioxide 20 mmol/L (22-29); Chloride 115 mmol/L (96-108); Creatinine Clr Calc Pharmacy 47.2; Estimated Glomerular Filt Rate 44; Glucose Random 123 mg/dL (60-115); Potassium 3.8 mmol/L (3.3-5.1); Sodium 141 mmol/L (135-145)
[2024-07-14 07:55] VITALS: PULSE 80; RESP 16; O2SAT 95
[2024-07-14] MEDS: BUDESONIDE 0.25 MG/2 ML INHALE (07:55)
[2024-07-14 08:04] LABS: HBS Num1 0.09 mIU/mL (0-7.99); HBc Num1 0.08 S/CO (0.00-0.79); HBsAGNum1 0.36 S/CO (0.00-0.99); Hepatitis B Core Antibody Nonreactive (Nonreactive); Hepatitis B Surface Antigen Negative (Negative); ~HepC Num1 0.06 S/CO (0.00-0.79); ~Hepatitis B Surface Antibody NONREACTIVE (Nonreactive); ~Hepatitis C Antibody Nonreactive (Nonreactive)
[2024-07-14] MEDS: hydrALAZINE HCl 50 MG TABLET PO (08:34)
[2024-07-14] MEDS: cloNIDine HCL 0.2 MG TABLET PO (08:35)
[2024-07-14] MEDS: Atorvastatin Calcium 40 MG TABLET PO (08:35)
[2024-07-14] MEDS: buPROPion HCl XL 150 MG TAB.ER.24H PO (08:35)
[2024-07-14] MEDS: amLODIPine Besylate 10 MG TABLET PO (08:35)
[2024-07-14] MEDS: atenoloL 50 MG TABLET PO (08:35)
[2024-07-14] MEDS: Sertraline HCL 100 MG TABLET PO (08:35)
[2024-07-14] MEDS: 0.9 % Sodium Chloride Flush 3 ML SYRINGE IVFLUSH (08:37)
--- NOTE | 2024-07-14 09:32 | MHC.CM.PN ---
pt is being dcd today self care
--- NOTE | 2024-07-14 11:00 | P.DS_ITS ---
DS: Providers Provider Date of Service: 07/14/24 Date of admission: 07/12/24 12:38 Date of discharge: 07/14/24 Primary care physician: CUCA Payne- Consults: 07/13/24 09:59 Consult to Gastroenterology Routine Consulting Provider: Marciano Le Reason for consultation: black stool DS: Diagnosis Discharge Diagnosis (1) HTN (hypertension): Status: Acute DS: Summary Hospital Course Hospital Course: HP as per admitting provider. 69-year-old female presenting with bleeding gums and black stools. Patient had extraction of 9 upper teeth 10 days ago and has h ad oozing since then. She is on Eliquis for PAD/PVD and has noted some black stools. Denies any abdominal pain, vomiting, diarrhea. Did report some nausea with swallowing of blood. In the ER, she received tranexamic acid applied to the gums and 1 suture to upper gum area to stop active bleeding. Abdominal CT negative for any acute abnormality. At this time her H&H is stable and does not require blood transfusion. Will admit for further management and treatment of bleeding gums and black stools. Acute blood loss anemia secondary to bleeding gums from teeth extraction. Bleeding gums. Recently had 9 teeth extracted . ED provider placed a suture in one of the sockets that helped stop bleeding, TMA also applied to gums Black stool . likely from swallowing blood. no abd pain . neg abd ct PAD/PVD . Eliquis on hold due to bleeding gums . Continue statin and beta- junior Hypertension . Continue home medications Hypothyroidism . Continue levothyroxine GERD. Continue PPI Time Attestation Discharge Coordination Time (in mins): 40 Quality: Safe Use of Opioids Does Pt have an Active Cancer Diagnosis on the Problem List?: No Quality: Stroke Does the patient have a stroke diagnosis?: No Physical Exam Vital Signs: Vital Signs: Last Vital Signs Temp 98.4 F 07/14/24 07:41 Pulse 80 07/14/24 07:55 Resp 16 07/14/24 07:55 BP 130/68 07/14/24 03:56 Pulse Ox 95 07/14/24 03:56 O2 Del Method Room Air 07/14/24 03:56 BMI result Body Mass Index 30.0 Appearing in no acute distress head is normocephalic atraumatic eyes pupils are PERRLA sclera is anicteric mouth throat mucous membranes are intact and moist neck is supple no lymphadenopathy, no JVD noted lung sounds are clear to auscultation heart regular rate rhythm, clear S1, S2 positive bowel sounds, abdomen is soft, nontender neuro patient is alert x3, no focal deficits DS: Data Data Completed and Pending Labs on day of discharge: Laboratory Results - last 24 hr 07/13/24 07/13/24 07/14/24 07:57 11:45 05:52 WBC 5.1 RBC 2.50 L Hgb 8.1 L Hct 24.1 L MCV 96.4 MCH 32.4 MCHC 33.6 RDW 13.9 Plt Count 99 L MPV 10.4 Absolute Nucleated RBC 0.000 Nucleated RBC % (auto) 0.0 Sodium 141 Potassium 3.8 Chloride 115 H Carbon Dioxide 20 L Anion Gap 10 L BUN 35 H Creatinine 1.22 Estim Creat Clear Calc 47.2 Estimated GFR 44 Random Glucose 123 H Lactic Acid 1.1 Calcium 8.4 Hep Bs Antigen Negative Hep Bs Antibody NONREACTIVE Hep B Core Total Ab Nonreactive Hepatitis C Ab (EIA) Nonreactive Blood Type B Negative Antibody Screen NEGATIVE Crossmatch See Detail Discharge Plan Discharge Anticipated Discharge Date/Time: 07/14/24 10:56 Patient Disposition: Home, Self-Care Discharge Diagnosis: acute blood loss anemia gum bleeding Referrals: Blank Rodriguez, [employer]EDER- [Primary Care Provider] - 1 Week Discharge Medications: Continued aspirin [Adult Low Dose Aspirin] 81 mg tablet,delayed release (DR/EC) 81 mg PO DAILY Qty: 30 0RF (DME) nebulizers [facility] See Rx Instructions .Route Qty: 1 0RF Rx Instructions: Use nebulizer q 6 hrs prn wheezing, sob, cough DX: COPD (DME) nebulizer accessories Kit See Rx Instructions .Route Qty: 1 0RF Rx Instructions: Use nebulizer q 6 hrs prn wheezing, sob, cough DX: COPD omeprazole 20 mg capsule,delayed release(DR/EC) 20 mg PO BID Qty: 180 1RF albuterol sulfate 90 mcg/actuation HFA aerosol inhaler 2 puff PO Q4-6H PRN (Reason: for wheezing) Qty: 8.5 0RF amlodipine 10 mg tablet 10 mg PO DAILY Qty: 90 1RF atenolol 50 mg tablet 50 mg PO BID 90 Days Qty: 180 2RF sertraline 100 mg tablet 100 mg PO DAILY Qty: 90 1RF aliskiren 150 mg tablet 150 mg PO DAILY Qty: 90 0RF clonidine HCl 0.2 mg tablet 0.2 mg PO BID Qty: 60 0RF levothyroxine 75 mcg tablet 75 mcg PO DAILY Qty: 90 0RF bupropion HCl 200 mg tablet sustained-release 12 hr 200 mg PO QAM Qty: 90 2RF oxycodone-acetaminophen 5-325 mg tablet 1 tab PO Q6H PRN (Reason: pain) gabapentin 600 mg tablet 1,200 mg PO BEDTIME ipratropium-albuterol 0.5 mg-3 mg(2.5 mg base)/3 mL solution for nebulization 3 ml inhalation Q6H PRN (Reason: wheezing) Xarelto 2.5 mg tablet 2.5 mg PO BID hydralazine 50 mg tablet 50 mg PO TID Qty: 90 3RF rosuvastatin 10 mg tablet 10 mg PO DAILY Qty: 90 1RF budesonide 0.25 mg/2 mL suspension for nebulization 0.25 mg inhalation BID Qty: 60 2RF nystatin 100,000 unit/mL suspension 5 ml PO TID PRN (Reason: thrush) Rx Instructions: swish and swallow Discontinued penicillin V potassium 500 mg tablet 500 mg PO QID Patient Comments: Per patient, she has one dose left 07/12/23 Discharge Orders: Discharge Order (Routine); Ordered 07/14/24 Ordered By: Collette Victoria Diet: Advance to usual diet Activity on Discharge: As tolerated Stand Alone Forms: Patient Portal Discharge page Print Language: Kyrgyz Care Plan Goals: Start taking Eliquis and aspirin tomorrow 07/14/24 Health Concerns: acute blood loss anemia gum bleeding Plan of Treatment: Follow up with primary care provider as needed Take all medications as needed Assessment: See discharge summary
--- NOTE | 2024-07-14 13:28 | P.CDIM_ITS ---
PROVIDER RESPONSE TEXT: To clarify, the appropriate diagnosis supported by the clinical indicators: Acute blood loss anemia: suspected QUERY TEXT: PHYSICIAN'S DOCUMENTATION REQUEST Date of Query: 07/14/2024 10:55 AM EST Patient Name: Myrtle Hamm Admit Date: 07/12/2024 Dear Collette Victoria CONE SEWER, A review of the medical record indicates additional documentation may be needed. Please review below and update the documentation accordingly. Clinical Indicators: Patient with melena and anemia, bleeding gums, black stools, dental procedure having 9 teeth extracte d, possibly swallowed blood. H/H - 7.2/21.4 Transfused 1 unit PRBC. Xarelto Based on the above, could you clarify which of the following is the most likely type of anemia you ar e evaluating, treating, and/or monitoring? Acute blood loss anemia possible, probable, suspected etc. Acute blood loss anemia with baseline chronic anemia (specify type) Anemia of chronic disease indicate if neoplastic disease, CKD, or other Chronic iron deficiency anemia due to blood loss Other (explain) Clinically unable to determine (explain) Thank you, Brenda Palacios, CCS, CDIS Use of terms such as suspected, likely, concern for, or probable (associated with a specific diagnosi s that is being evaluated, monitored, or treated as if it exists) are acceptable and can be coded in the inpatient se tting, when documented at the time of discharge. Please use your independent medical judgment in providing your response. THIS QUERY IS PART OF THE PERMANENT MEDICAL RECORD
[2024-07-15 11:03] LABS: Alpha 1 Anti-trypsin 164 mg/dL (83-199)
[2024-07-16 09:33] LABS: Mitochondrial Antibodies NEGATIVE (NEGATIVE)
[2024-07-16 22:08] LABS: Smooth Muscle Antibody <20 U (<20)
[2024-07-17 13:58] LABS: Anti Nuclear Antibody Screen NEGATIVE (NEGATIVE)
== END 2024-07-14 12:05 | disposition home or self-care (01) | DRG 908 ==
LOC: HO.ED 12:33 → HO.EDOVER 12:39 → HO.S3 07-13 05:28
PROVIDERS: Emergency Medicine; Internal Medicine; Admitting Provider Nurse Practitioner Acute Care; Emergency Provider Emergency Medicine; PCP Nurse Practitioner Family; Visit Provider Nurse Practitioner Acute Care
DX: K91.840 Postprocedural hemorrhage of a digestive system organ or structure following a digestive system procedure (principal); D62 Acute posthemorrhagic anemia; Y83.8 Other surgical procedures as the cause of abnormal reaction of the patient, or of later complication, without mention of misadventure at the time of the procedure; I73.9 Peripheral vascular disease, unspecified; E03.9 Hypothyroidism, unspecified; K06.8 Other specified disorders of gingiva and edentulous alveolar ridge; I10 Essential (primary) hypertension; K21.9 Gastro-esophageal reflux disease without esophagitis; K76.0 Fatty (change of) liver, not elsewhere classified; J44.9 Chronic obstructive pulmonary disease, unspecified; Z79.01 Long term (current) use of anticoagulants; Z79.82 Long term (current) use of aspirin; Z79.890 Hormone replacement therapy; Z79.899 Other long term (current) drug therapy
CPT/HCPCS: 36415; 74178; 80048; 80053; 82103; 82272; 82728; 82803; 83540; 83605; 83690; 85025; 85027; 85610; 86015; 86038; 86381; 86704; 86706; 86803; 86850; 86900; 86901; 86923; 87340; 93005; 99285; J1200; J1920; J2003; J2270; J2405; P9016; Q9967

== ENCOUNTER → 2024-07-12 07:05 | Outpatient (BNV) | payer MEDICARE, SELFPAY | PROVIDERS: Emergency Provider Emergency Medicine; PCP Nurse Practitioner Family; Visit Provider Radiology Diagnostic Radiology | DX: R11.2 Nausea with vomiting, unspecified (principal) | CPT/HCPCS: 74178 ==

== ENCOUNTER 2024-07-12 12:38 | Outpatient (BNV) | payer MEDICARE, SELFPAY | END 2024-07-12 16:43 | PROVIDERS: Admitting Provider Nurse Practitioner Acute Care; Emergency Provider Emergency Medicine; PCP Nurse Practitioner Family; Visit Provider Internal Medicine Cardiovascular Disease | DX: I45.81 Long QT syndrome (principal) | CPT/HCPCS: 93010 ==

== ENCOUNTER → 2024-07-12 12:38 | Outpatient (BNV) | payer MEDICARE, SELFPAY | PROVIDERS: Admitting Provider Nurse Practitioner Acute Care; Emergency Provider Emergency Medicine; PCP Nurse Practitioner Family; Visit Provider Nurse Practitioner Acute Care | DX: I10 Essential (primary) hypertension (principal); K91.840 Postprocedural hemorrhage of a digestive system organ or structure following a digestive system procedure | CPT/HCPCS: 99223; 99232; 99239 ==

== ENCOUNTER 2024-07-17 11:31 | Outpatient (AMB) | payer MEDICARE, SELFPAY ==
[2024-07-17 11:32] VITALS: BP 170/64; PULSE 77; O2SAT 99; BMI 27.6
--- NOTE | 2024-07-17 11:32 | HO.NEPHOV ---
Vital Signs 07/17/24 11:32 Height 5 ft 6 in Weight 171 lb BMI 27.6 BP 170/64 H Blood Pressure Location Lt brachial Position Sitting Pulse 77 Pulse Source Pulse Oximeter Pulse Oximetry (%) 99 Oxygen Delivery Method Room Air Intake Visit Reasons: Dr. Austin Cosmetic Chemist Required: No Accompanied by: Daughter Allergies codeine Allergy (Unknown, Verified 07/17/24 11:34) Unknown Medication List - Last Reconciled 07/17/24 by Nilay Spencer MD albuterol sulfate 90 mcg/actuation 2 puffs PO Q4-6H PRN aliskiren 300 mg PO DAILY amlodipine 10 mg PO DAILY aspirin (Adult Low Dose Aspirin) 81 mg PO DAILY atenolol 50 mg PO BID 90 days budesonide 0.25 mg (2 mL) inhalation BID bupropion HCl SR 200 mg PO QAM clonidine HCl 0.2 mg PO BID gabapentin 1,200 mg PO BEDTIME hydralazine 50 mg PO TID ipratropium-albuterol 0.5 mg-3 mg(2.5 mg base)/3 mL 3 mL inhalation Q6H PRN levothyroxine 75 mcg PO DAILY lorazepam 0.5 mg PO BEDTIME PRN nebulizer accessories Use nebulizer q 6 hrs prn wheezing, sob, cough DX: COPD nebulizers Use nebulizer q 6 hrs prn wheezing, sob, cough DX: COPD nystatin 5 mL PO TID PRN omeprazole 20 mg PO BID oxycodone-acetaminophen 5-325 mg 1 tab PO Q6H PRN rosuvastatin 10 mg PO DAILY sertraline 100 mg PO DAILY HPI Comments Details: . Myrtle is a pleasant middle-aged woman with a history of resistant hypertension setting of severe vascular disease. She has undergone multiple stents in lower extremities and iliac arteries. She has atrophic left kidney with left renal artery stenosis. She is on multiple antihypertensive medications blood pressure is still suboptimal and hence this referral. She has underlying CKD with a serum creatinine around 1.4-1.6 mg/dL. She has a history of smoking for several years. She quit smoking about 6 months ago. She was on losartan hydrochlorothiazide. Due to hyponatremia of 130 millimoles per L hydrochlorothiazide has been discontinued recently. 03/12/24. She was given Bumex 0.25 mg half a tablet a day. She continues to feel tired. Recently creatinine is bumped up to 2.37. Home blood pressure readings were reviewed and systolic blood pressure is between 150 and 170 mm Hg. 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 Arthritis of left hip Disc degeneration, lumbar Lumbar facet arthropathy Stenosis, spinal, lumbar Sacroiliac joint pain Lumbar radicular pain Rhinitis Hypothyroidism Anxiety Tachycardia Cough COPD (chronic obstructive pulmonary disease) Surgical History No pertinent past surgical history Social History Household Members: Children Household Members Other:: daughter Housing: House Are you a primary urgent care to a significant other at home: No Do you presently have visiting nurse or other home services: No 75 years or older and lives alone: No Alcohol intake: current Alcohol intake frequency: holidays/special occasions only Alcohol type: beer Patient Tobacco Use Status: Former Tobacco user Tobacco use type: Cigarette Cigarette Packs Per Day: 0 Cigarettes Per Day: 2 e-Cigarette/Vaping Use: Never Used service: No Current occupational status: retired Current occupation: right handed, retired Sexual orientation: Unable to collect Gender identity: Unable to collect Cognitive needs: No Hearing needs: No Vision needs: Yes (wears glasses to drive.) Physical Exam Vital Signs: Last Vital Signs Pulse 77 07/17/24 11:32 BP 170/64 H 07/17/24 11:32 Pulse Ox 99 07/17/24 11:32 Oxygen Delivery Method Room Air 07/17/24 11:32 BMI result Body Mass Index 27.6 Results Reviewed Nephrology Results: Hgb 8.1 g/dl (12.0-16.0) L 07/14/24 WBC 5.1 X10*3/uL (4.8-10.8) 07/14/24 Plt Count 99 X10*3/uL (160-400) L 07/14/24 Sodium 141 mmol/L (135-145) 07/14/24 Potassium 3.8 mmol/L (3.3-5.1) 07/14/24 Chloride 115 mmol/L (96-108) H 07/14/24 Carbon Dioxide 20 mmol/L (22-29) L 07/14/24 BUN 35 mg/dL (9-16) H 07/14/24 Creatinine 1.22 mg/dL (0.5-1.4) 07/14/24 Calcium 8.4 mg/dL (8.4-10.2) 07/14/24 Assessment & Plan Assessment & Plan (1) Renal atrophy, left: Comment: see CKD Code(s): N26.1 - Atrophy of kidney (terminal) Category: Medical (2) CKD (chronic kidney disease) stage 3, GFR 30-59 ml/min: Comment: 08/2022 gfr 44 cr 1.23; 07/11/23 Bun 21 cr 1.63 egfr 32 stable avoid nephrotoxic agents. 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 She has atrophic left kidney with significant left renal artery stenosis. Severe stenosis of suprarenal abdominal aorta. Severe stenosis of origin of SMA. Infrarenal aortic stent. Resistant hypertension is probably due to underlying renal artery stenosis. Hyponatremia most likely due to the use of HCTZ leading to decreased free water clearance. Creatinine has improved Plan Stay on low-sodium diet Keep current medications for now. Keep Tekturna to optimize blood pressure. Discontinued BUMEX 0.5 mg - HALF tab a day Discontinued losartan Keep hydralazine 50 mg PO TID to optimize blood pressure Increase Tekturna to 300 mg QD Watch renal function Monitor BP at home NExt step would be to increase Hydralazine to 75 mg TID At her request, added Altivan 0.5 mg Q HS PRN to help with anxiety Await vascular surgery follow up. The goal is to achieve a target systolic blood pressure 140 mm Hg for now. Would avoid aggressive lowering of blood pressure or hypotension- Therefore- gradually titrate anti hypertensives Medications: New lorazepam 0.5 mg PO BEDTIME PRN 30 tabs 1RF anxiety Changed From aliskiren 150 mg PO DAILY 90 tabs 0RF To aliskiren 300 mg PO DAILY 30 tabs 1RF Coding Level of Care Code Est Pt Level 4 (20423) Diagnoses Renal atrophy, left N26.1 Stage 3b chronic kidney disease N18.32 Chronic kidney disease stage 3 subtype: stage 3b (GFR 30-44) Hyponatremia E87.1 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 I70.203
--- OUTSIDE RECORDS SUMMARY | 2024-07-17 13:45 | XMS_ITS | Clinical Summary ---
Author Organization [facility] it Address [address] [place] [address] Care Team Providers Care Auto Parker Name Role Phone Nolasco Tara Rosario SUPERINTENDENT PRESSURE Primary Care Provider [phone] Surgical History Surgery Date Site/Laterality Comments OTHER SURGICAL HISTORY 04/20/2022 PROCEDURE: DC WILKES FACETECTOMY & FORAMOTOMY 1 VRT SGM LUMBAR; COMMENT: Bilateral L3-4, L4-5 decompression from a left-sided approach, Dr. Vazquez Social History Tobacco Use Types Packs/Day Years Used Date Smoking Tobacco: Every Day Cigarettes Smokeless Tobacco: Never Sex and Gender Information Value Date Recorded Sex Assigned at Not on file Gender Identity Not on file Sexual Orientation Not on file Obstetrics History Last Filed Vital Signs Vital Sign Reading Time Taken Comments Blood Pressure - - Pulse - - Temperature - - Respiratory Rate - - Oxygen Saturation - - Inhaled Oxygen Concentration - - Weight 79.4 kg (175 lb) 07/24/2022 1:01 PM EST Height 167.6 cm (5' 6 ) 06/21/2022 1:09 PM EST Body Mass Index 28.25 06/21/2022 1:09 PM EST Plan of Treatment Health Maintenance Due Date Last Done Comments Breast Cancer Screening 1955 Pneumococcal Vaccine: 65+ Years (1 of 2 - PCV) 1963 DTaP,Tdap,and Td Vaccines (1 - Tdap) 1976 Zoster Vaccines (1 of 2) 2007 Colorectal Cancer Screening: Colonoscopy 05/27/2022 Depression Screening 05/27/2022 Falls Risk Assessment 05/27/2022 Hepatitis C Screening 05/27/2022 Osteoporosis Screening (Bone Density Screening) 05/27/2022 Social Influencers of Health Screening 05/27/2022 COVID-19 Vaccine (3 - 2023-2 5 season) 2024 06/15/2021, 08/30/2020 Influenza Vaccine (#1) 2024 RSV Immunization Patients 60 + Years Old (1 - 1-dose 75+ series) 2032 HIB Vaccines Aged Out No longer eligi ble based on patient's age to complete this topic HPV Vaccines Aged Out No longer eligi ble based on patient's age to complete this topic Hepatitis A Vaccines Aged Out No long er eligible based on patient's age to complete this topic Hepatitis B Vaccines Aged Out No long er eligible based on patient's age to complete this topic IPV Vaccines Aged Out No longer eligi ble based on patient's age to complete this topic MMR Vaccines Aged Out No longer eligi ble based on patient's age to complete this topic Meningococcal ACWY Vaccine Aged Out N o longer eligible based on patient's age to complete this topic RSV Immunization Patients Under 20 months Aged Out No longer eligible b ased on patient's age to complete this topic Varicella Vaccines Aged Out No longer eligible based on patient's age to complete this topic Care Teams Auto Parker Relationship Specialty Start Date End Date Tara Nolasco NP [address] [place] [address] [address] [place] [address] PCP - General 06/21/22
--- OUTSIDE RECORDS SUMMARY | 2024-07-17 13:45 | XMS_ITS | Continuity of Care Document ---
Author Organization [facility] ter Address [address] [place] [id number] Care Team Providers Care Machine Stapler Name Role Phone Kamini REYESGarret Primary Care Physician [phone] Encounter [facility] Date(s): 05/30/24 - 07/09/[address] [address] Attending Physician: Derek Gill MD Admitting Physician: Derek Gill MD Referring Physician: Derek Gill MD Encounter Type: Pre-Outpt Medications Albuterol (Eqv-ProAir HFA) 90 mcg/inh inhalation [...] Position: S Outreach Member Role: PCP Address: [address] [place] [address] Telecom: Care Team Related Persons Name: GARRET ASHTON Insurance Providers Guarantor name: FARZANA ASHTON Health Plan Information #: 1 Payer: MEDICARE PART B OUTPT Member Number: [id number] Policy Number: NA Group Number: NA Health Plan Information #: 2 Payer: MEDEX Member Number: [id number] Policy Number: NA Group Number: NA
== END 2024-07-17 11:51 | disposition home or self-care (01) ==
PROVIDERS: PCP Nurse Practitioner Family; Visit Provider Internal Medicine Hypertension Specialist
DX: N26.1 Atrophy of kidney (terminal) (principal); N18.32 Chronic kidney disease, stage 3b; E87.1 Hypo-osmolality and hyponatremia; I70.203 Unspecified atherosclerosis of native arteries of extremities, bilateral legs
CPT/HCPCS: 99214

== ENCOUNTER → 2024-07-17 11:31 | Outpatient (BNVA) | payer MEDICARE, SELFPAY | PROVIDERS: PCP Nurse Practitioner Family; Visit Provider Internal Medicine Hypertension Specialist | DX: N26.1 Atrophy of kidney (terminal) (principal); N18.32 Chronic kidney disease, stage 3b; E87.1 Hypo-osmolality and hyponatremia; I70.203 Unspecified atherosclerosis of native arteries of extremities, bilateral legs | CPT/HCPCS: 99212 ==

== ENCOUNTER 2024-07-21 11:18 | Outpatient (AMB) | payer MEDICARE, SELFPAY ==
--- NOTE | 2024-07-21 11:23 | MHC.PC.OV ---
Vital Signs 07/21/24 11:31 Height 5 ft 6 in Weight 176 lb 2 oz BMI 28.4 BP 142/74 H Blood Pressure Location Rt brachial Position Sitting Respiration 13 Pulse 65 Pulse Source Pulse Oximeter Temp 97.1 F Temp Source Oral Pulse Oximetry (%) 97 Oxygen Delivery Method Room Air Intake Visit Reasons: bleeding gums Intake Note: ER discharge follow up Client Retention Specialist Required: No Allergies codeine Allergy (Unknown, Verified 07/21/24 11:23) Unknown Medication List - Last Reconciled 07/21/24 by Blank Rodriguez, [facility]- albuterol sulfate 90 mcg/actuation 2 puffs PO Q4-6H PRN aliskiren 300 mg PO DAILY amlodipine 10 mg PO DAILY aspirin (Adult Low Dose Aspirin) 81 mg PO DAILY atenolol 50 mg PO BID 90 days budesonide 0.25 mg (2 mL) inhalation BID bupropion HCl SR 200 mg PO QAM clonidine HCl 0.2 mg PO BID gabapentin 1,200 mg PO BEDTIME hydralazine 50 mg PO TID ipratropium-albuterol 0.5 mg-3 mg(2.5 mg base)/3 mL 3 mL inhalation Q6H PRN levothyroxine 75 mcg PO DAILY lorazepam 0.5 mg PO BEDTIME PRN nebulizer accessories Use nebulizer q 6 hrs prn wheezing, sob, cough DX: COPD nebulizers Use nebulizer q 6 hrs prn wheezing, sob, cough DX: COPD nystatin 5 mL PO TID PRN omeprazole 20 mg PO BID oxycodone-acetaminophen 5-325 mg 1 tab PO Q6H PRN rosuvastatin 10 mg PO DAILY sertraline 100 mg PO DAILY Tobacco use date assessed: 11/01/23 Dental Screening Dental Screen Date: 07/16/23 HPI HPI Comments History of Present Illness Details Here today for a Transitional Care Management Visit Discharge summary reviewed. Admitted for acute blood loss anemia secondary to bleeding gums status post dental extraction. She was on xarelto which contributed to the bleeding. One suture was applied to the area of bleeding and TMA was also applied to the gums. She was noted to have black stools likely from swallowing the blood. Negative abdominal CT scan. XARELTO on hold at this time due to bleed. On admission hemoglobin 8.3 and 24.5, upon discharge on July 14 hemoglobin 8.1, hematocrit 24.1, RBCs 2.5, platelet count 99, stable renal function BUN 35, creatinine 1.22, EGFR 44 GI consult: CT suggestive of cirrhosis and gallstones, ? surreptitious EtOH use, bleeding not GI related - autoimmune labs ordered & outpatient f/u Dr Baca Admission Date: 07/12/24 Discharge Date: 07/14/24 Hospital: [facility] Date of interactive contact with Nurse Navigator: as documented in chart Pending diagnostic tests/treatments: Alpha 1 antitrypsin, mitochondrial antibody titer, SUKHWINDER screen anti smooth muscle antibody within normal limits Pending consults: None Referrals: nonen Medications reconciled & updated. During todays TCM visit, the d/c summary was reviewed, along with the need for or follow-up on pending diagnostic tests and treatments, as necessary interaction with other health intensive care unit nurse who will assume or reassume care of the beneficiary?s system-specific problems was done or is being worked on, education was provided to the beneficiary, family, guardian, and/or caregiver, referrals to establish or re-establish and arrange needed community resources we completed, assistance in scheduling required follow-up with community providers and services & finally updated medication list given to patient/caregiver Presents today and she reports that she just feels exhausted. She is no longer having any bleeding. She was off the Xarelto per her vascular doctor. She is going to follow up with her regular dentist have the suture removed soon. She started on iron supplement as recommended by her vascular surgeon. Since this time she is having dark-colored stools. She denies any overt or stephanie bleeding. She was managed only on aspirin. She wanted to discuss the cirrhosis findings. Reviewed with her that this was noted on the CT scan. That the autoimmune markers were negative. Asked about drinking and she does state that she does drink beers however not daily. Last vascular surgery note available to me 07/14/2024 states she has significant carotid artery stenosis right greater than left which is asymptomatic noted that pulmonology felt that COPD was mild to moderate and was not a contraindication for her surgery. She was advised to take vitamin-B and iron supplements over the next several weeks. A repeat CBC in a few weeks had been ordered. The plan to proceed with the elective carotid endarterectomy in the right to make sure that the stroke risks are decreased in the future she will proceed with the aortic endarterectomy and aortobifemoral bypass She had a telehealth appointment with Dr. Gill today and the plan is as above per the patient reports. She does tell me though that she has numbness of her legs and buttocks along with saddle paresthesia that occurred x1 while going to use the bathroom. She reports that she did notify the vascular doctor about this. 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 Advised for her to continue to take her iron supplement along with her B12. Encouraged to reduce alcohol intake. Recommend close follow up in 1-2 weeks. Continue follow up with vascular and all of your medical team. Total time spent caring for the patient today was 45 minutes. This includes time spent before the visit reviewing the chart, time spent during the visit, and time spent after the visit on documentation, reviewing laboratory results, diagnostic imaging, medications, performing a medically necessary evaluation, counseling on diagnoses, care coordination, ordering appropriate tests, ordering appropriate medications, review of tests performed by other providers, reporting test results with the patient, communication with other healthcare providers. This note is constructed using voice recognition software. While every effort has been made to ensure accuracy in wildland fire fighter, still errors may have been included Sometimes, these errors may affect the content or meaning of the given sentence . 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 Stenosis, spinal, lumbar Tachycardia Surgical History No pertinent past surgical history Social History Household Members: Children Household Members Other:: daughter Housing: House Are you a primary healthcare network consultant to a significant other at home: No Do you presently have visiting nurse or other home services: No Alcohol intake: current Alcohol intake frequency: holidays/special occasions only Alcohol type: beer Patient Tobacco Use Status: Former Tobacco user Tobacco use type: Cigarette Cigarette Packs Per Day: 0 Cigarettes Per Day: 2 e-Cigarette/Vaping Use: Never Used service: No Current occupational status: retired Current occupation: right handed, retired Sexual orientation: Unable to collect Gender identity: Unable to collect Cognitive needs: No Hearing needs: No Vision needs: Yes (wears glasses to drive.) Questionnaire PHQ-9 Over the last 2 weeks, how often have you been bothered by any of the following problems? 1. Little interest or pleasure in doing things: not at all 2. Feeling down, depressed, or hopeless: not at all 3. Trouble falling or staying asleep, or sleeping too much: several days 4. Feeling tired or having little energy: several days 5. Poor appetite or overeating: not at all 6. Feeling bad about yourself - or that you are a failure or have let yourself or your family down: not at all 7. Trouble concentrating on things, such as reading the newspaper or watching television: not at all 8. Moving or speaking so slowly that other people could have noticed. Or the opposite - being so fidgety or restless that you have been moving around a lot more than usual: not at all 9. Thoughts that you would be better off or of hurting yourself in some way: not at all Total score: 2 Depression Screening Interpretation: Negative Depression Screening Done: Yes 19045 - PHQ-9 Billing: Yes Source: Developed by Drs. Jayy Nguyễn, Stephy Coyle, Luis Walker and colleagues, with an educational tino from [employer]. Thrive Questionnaire Date Thrive assessed: 07/21/24 I am a: Patient What is your living situation today?: I have a steady place to live Within the past 12 months, did the food you bought not last and you didn't have the money to get more?: Never true Within the past 12 months, did you worry whether your food would run out before you got money to buy more?: Never true Do you have trouble paying for medicines?: No Do you have trouble getting transportation to medical appointments?: No Do you have trouble paying your heating and electricity bill?: No Do you have trouble taking care of your child, family member or friend?: No Do you have trouble with day-to-day activities such as bathing, preparing meals, shopping, managing finances, etc.?: No Are you currently unemployed and looking for a job?: No Are you interested in more education?: No Please select the resources that you would like help with: None Currently or been in a relationship where the following occur: No concerns reported THRIVE Score: 0 AUDIT C Alcohol Use Questionnaire (AUDIT-C) 1. How often do you have a drink containing alcohol?: 4 or more times a week 2. How many drinks containing alcohol do you have on a typical day when you are drinking?: 1 or 2 3. How often do you have six or more drinks on one occasion?: Never Total Score: 4 Score Reviewed/Action Taken: Yes DRE-7 AMB Questionnaire DRE-7 Date DRE - 7 assessed: 07/21/24 Feeling nervous, anxious, or on edge: 0 = Not at all Not being able to stop or control worryin = Not at all Worrying too much about different things: 0 = Not at all Trouble relaxin = Not at all Being so restless that it is hard to sit still: 0 = Not at all Becoming easily annoyed or irritable: 0 = Not at all Feeling afraid as if something awful might happen: 0 = Not at all Total DRE-7 score (0-4 normal; 5-9 mild; 10-14 moderate; 15-21 severe): 0 Source: Developed by Drs. Jayy Nguyễn, Stephy Coyle, Luis Walker and colleagues, with an educational tino from [employer]. DRE-7 Assessment Billing DRE-7 Assessment Tool: DRE-7 Assessment 85931 Physical exam (Primary Care) Vital Signs: Last Vital Signs Temp 97.1 F 07/21/24 11:31 Pulse 65 07/21/24 11:31 Resp 13 07/21/24 11:31 BP 142/74 H 07/21/24 11:31 Pulse Ox 97 07/21/24 11:31 Oxygen Delivery Method Room Air 07/21/24 11:31 BMI result Body Mass Index 28.4 Tobacco/Smoking Status: Tobacco use Status Tobacco use date assessed 11/01/23 07/21/24 11:33 Patient Tobacco Use Status Former Tobacco user 07/21/24 11:33 Tobacco use type Cigarette 07/21/24 11:33 e-Cigarette/Vaping Use Never Used 07/21/24 11:33 PHQ-9: PHQ-9 Score PHQ-9: Total score 2 07/21/24 12:03 Depression Screening Interpretation: Negative Thrive Assessment: Date of Thrive Assessment Date Thrive assessed 07/21/24 07/21/24 11:33 Currently or been in a relationship where the following occur: No concerns reported Coding Level of Care Code TCM High MDM <= 7 Days Diagnoses Hospital discharge follow-up Z09 Anemia, unspecified type D64.9 Anemia type: unspecified type Panlobular emphysema J43.1 COPD type: emphysema Emphysema type: panlobular 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 I70.203 Stenosis of right carotid artery greater than 50% I65.21 Additional Codes DRE-7 Assessment Billing - DRE-7 Assessment Tool: DRE-7 Assessment [id number] ([id number]) PHQ-9 - 09427 - PHQ-9 Billing: Yes ([id number]) Assessment & Plan Assessment & Plan (1) Hospital discharge follow-up: Code(s): Z09 - Encounter for follow-up examination after completed treatment for conditions other than malignant neoplasm Category: Medical (2) Anemia: Code(s): D64.9 - Anemia, unspecified Category: Medical Qualifiers: Anemia type: unspecified type Qualified Code(s): D64.9 - Anemia, unspecified (3) COPD (chronic obstructive pulmonary disease): Code(s): J44.9 - Chronic obstructive pulmonary disease, unspecified Category: Medical Qualifiers: COPD type: emphysema Emphysema type: panlobular Qualified Code(s): J43.1 - Panlobular emphysema (4) 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 Orders: Orders Complete Blood Count no Diff Today D64.9 - Anemia, unspecified
[2024-07-21 11:31] VITALS: BP 142/74; PULSE 65; RESP 13; TEMP 36.2; O2SAT 97; BMI 28.4
--- OUTSIDE RECORDS SUMMARY | 2024-07-21 12:35 | XMS_ITS | Clinical Summary ---
Author Organization [employer] [facility] it Address [address] [place] [address] Care Team Providers Care Sodium Chlorite Operator Name Role Phone Nolasco Tara Rosario FLIGHT READINESS TECHNICIAN Primary Care Provider [phone] Surgical History Surgery Date Site/Laterality Comments OTHER SURGICAL HISTORY 04/20/2022 PROCEDURE: [place] WILKES FACETECTOMY & FORAMOTOMY 1 VRT SGM [...] age to complete this topic Care Teams Sodium Chlorite Operator Relationship Specialty Start Date End Date Tara Nolasco NP [address] [place] [address] [address] [place] [address] PCP - General 06/21/22
--- OUTSIDE RECORDS SUMMARY | 2024-07-21 12:35 | XMS_ITS | Continuity of Care Document ---
Author Organization [facility] Address [address] [place] [address]- Care Team Providers Care Director Of Product Marketing Name Role Phone Garret Suárez NP Tk Primary Care Physician Encounter [place] Date(s): 06/19/24 - 07/19/24 [facility] [address] [place], [place] [address] [[email or web address] Encounter Type: Triage Medications Albuterol (Eqv-ProAir HFA) [...] Team Personnel Name: Garret Suárez NP Position: [facility] Outreach Member Role: PCP Address: [address] [place] [address] [[email or web address] Telecom: Care Team Related Persons Name: GARRET ASHTON Insurance Providers Guarantor name: FARZANA ASHTON Health Plan Information #: 1 Payer: MEDICARE PART B OUTPT Member Number: NA Policy Number: NA Group Number: NA Health Plan Information #: 2 Payer: MEDEX Member Number: NA Policy Number: NA Group Number: NA
== END 2024-07-21 15:50 | disposition home or self-care (01) ==
PROVIDERS: PCP Nurse Practitioner Family; Visit Provider Nurse Practitioner Family
DX: D64.9 Anemia, unspecified (principal); J43.1 Panlobular emphysema; I70.203 Unspecified atherosclerosis of native arteries of extremities, bilateral legs; Z09 Encounter for follow-up examination after completed treatment for conditions other than malignant neoplasm; I65.21 Occlusion and stenosis of right carotid artery

== ENCOUNTER 2024-07-21 12:23 | Outpatient (REF) | payer MEDICARE, SELFPAY ==
--- OUTSIDE RECORDS SUMMARY | 2024-07-21 13:21 | XMS_ITS | Clinical Summary ---
Author Organization [employer] [facility] it Address [address] [place] [address] Care Team Providers Care Tooth Cutter Clutch Name Role Phone Nolasco Tara Rosario CAR SALES CONSULTANT Primary Care Provider [phone] Surgical History Surgery Date Site/Laterality Comments OTHER SURGICAL HISTORY 04/20/2022 PROCEDURE: [place] WILKES FACETECTOMY & FORAMOTOMY 1 VRT SGM [...] age to complete this topic Care Teams Tooth Cutter Clutch Relationship Specialty Start Date End Date Tara Nolasco NP [address] [place] [address] [address] [place] [address] PCP - General 06/21/22
[2024-07-21 14:15] LABS: Hematocrit 29.2 % (37.0-47.0); Hemoglobin 9.5 g/dl (12.0-16.0); Mean Corpuscular HGB Conc 32.5 g/dl (31.0-35.0); Mean Corpuscular Hemoglobin 32.2 pg (27.0-33.0); Mean Platelet Volume 10.8 fL (9.4-12.3); Platelet Count 159 X10*3/uL (160-400); Red Blood Count 2.95 X10*6/uL (4.20-5.50); Red Cell Distribution Width 15.1 % (11.0-16.0); White Blood Count 5.4 X10*3/uL (4.8-10.8)
== END 2024-07-21 12:24 | disposition home or self-care (01) ==
LOC: HO.WFDLDS 12:23
PROVIDERS: Visit Provider Nurse Practitioner Family
DX: Z09 Encounter for follow-up examination after completed treatment for conditions other than malignant neoplasm (principal); D64.9 Anemia, unspecified; J43.1 Panlobular emphysema; I70.203 Unspecified atherosclerosis of native arteries of extremities, bilateral legs; I65.21 Occlusion and stenosis of right carotid artery
CPT/HCPCS: 36415; 85027; 96127; 99496

== ENCOUNTER 2024-08-21 11:26 | Outpatient (AMB) | payer MEDICARE, SELFPAY ==
--- NOTE | 2024-08-21 11:28 | A.OFFPC_ITS ---
Vital Signs 08/21/24 11:34 08/21/24 12:14 Height 5 ft 6 in Weight 159 lb 8 oz BMI 25.7 BP 82/58 L 94/54 L Blood Pressure Location Rt brachial Rt brachial Position Sitting Sitting Respiration 12 Pulse 70 Pulse Source Pulse Oximeter Temp 96.9 F Temp Source Oral Pulse Oximetry (%) 99 Oxygen Delivery Method Room Air Intake Visit Reasons: discharged on 08/06 from [facility] Intake Note: Follow up on D/C from [facility] [facility] Required: No Allergies codeine Allergy (Unknown, Verified 08/21/24 11:28) Unknown Medication List - Last Reconciled 08/21/24 by Blank Rodriguez, [facility]- albuterol sulfate 90 mcg/actuation 2 puffs PO Q4-6H PRN aspirin (Adult Low Dose Aspirin) 81 mg PO DAILY atenolol 50 mg PO BID 90 days budesonide 0.25 mg (2 mL) inhalation BID bupropion HCl SR 200 mg PO QAM clopidogrel mg PO DAILY gabapentin 1,200 mg PO BEDTIME hydralazine 100 mg PO TID ipratropium-albuterol 0.5 mg-3 mg(2.5 mg base)/3 mL 3 mL inhalation Q6H PRN isosorbide mononitrate ER mg PO DAILY levothyroxine 75 mcg PO DAILY lorazepam 0.5 mg PO BEDTIME PRN nebulizer accessories Use nebulizer q 6 hrs prn wheezing, sob, cough DX: COPD nebulizers Use nebulizer q 6 hrs prn wheezing, sob, cough DX: COPD nystatin 5 mL PO TID PRN omeprazole 20 mg PO BID oxycodone-acetaminophen 5-325 mg 1 tab PO Q6H PRN rosuvastatin 10 mg PO DAILY sertraline 100 mg PO DAILY Tobacco use date assessed: 08/21/24 Fall risk assessment: 2 + Falls in past year Last assessed Fall Risk: 08/21/24 Dental Screening Dental Screen Date: 08/21/24 Did you have a dental visit in the last 12 months?: Yes Did you have a dental problem in the last 6 months where you did not have access to dental care?: No Was dental information given to patient?: Patient has dentist HPI HPI Comments History of Present Illness Details Here today for a Transitional Care Management Visit Discharge summary reviewed. Admission Date: 07/30/24 with readmission 08/02/24 Discharge Date: 08/06/24 Hospital: [facility] Date of interactive contact with Nurse Navigator: as documented in chart Pending diagnostic tests/treatments: Pending consults: none DME: jeanie cane, w/c, incont briefs PT/OT/ROLLER SKATE ASSEMBLER: none ordered - offered and declined today Referrals: Vascular appt 08/21/24 Medications reconciled & updated. During todays TCM visit, the d/c summary was reviewed, along with the need for or follow-up on pending diagnostic tests and treatments, as necessary interaction with other health career counselor who will assume or reassume care of the beneficiary?s system-specific problems was done or is being worked on, education was provided to the beneficiary, family, guardian, and/or caregiver, referrals to establish or re-establish and arrange needed community resources we completed, assistance in scheduling required follow-up with community providers and services & finally updated medication list given to patient/caregiver - The patient is a 69-year-old female pr esenting with transitional care management after hospitalization. Here w/ dtr Blank, who is providing support. - Initial hospitalization on July h for a right carotid endarterectomy. - Subsequent readmission on August 02 due to serious pulmonary and renal complications linked with hypertensive urgency. underwent stenting of R renal artery and SMA. - Discharged Aug 06, home no services. Developed symptoms of pelvic numbness and urinary incontinence. - Further vascular consultations led to imaging tests, including an ultrasound, and an MRI planned, to assess potential nerve damage. US done yesterday, results pending, MRI scheduled Saturday. Cont w/ saddle parasthesia, multiple falls d/t poor sensation in legs and urinary incont. - Very weak. Using walker ,cane , w/c wh ich is not her baseline - Currently, facing low blood pressure p ost-surgery. Did not take hydralazine or atenolol today. Feels dizzy. Monitoring BP at home, remains <100 - Nutritional intake has declined, poor appetite and significant weight loss. - Constipation is a prevailing issue, correlating with recent surgical history, limited movement, dietary factors, and current use of iron supplements. Last BM weeks ago, per her reports. Taking metamucil and colace. Has used ex-lax in the past with + effect. Denies abd dami, n/v. - A chest scan identified a concerning g round glass opacity in the right lung ( ground glass opacity of 2.5 cm discovered in the right lung, necessitating monitoring in the future.), slated for future check-ups. Incidental finding Cont to be SOB. Using inhalers. No smoking. Denies chest pain Edema in BLE is better Will have Rt ax bifemoral artery bypass 09/03/24 Review of Systems - Cardiovascular: Reports dizziness and multiple falls - Musculoskeletal: Reports leg weakness - Neurological: Reports pelvic numbness; urinary incontinence - Gastrointestinal: Reports significant weight loss and constipation - Respiratory: Reports shortness of jaimee th with exertion - General: Reports feeling weak and loss of appetite Physical Exam awake alert NAD, tired and chronically ill appearin conjunctival pallor bilat angular chelitis RRR 2/6 systolic murmur No carotid bruit, well healing R CEA scar LS dim throughout Abd soft, nontender, normoactive bs x 4 No edema BLE profoundly weak, using cane, slow gaurded unsteady gait Skin pale Discussion Notes I discussed with the patient and her caregiver the ongoing management for her multiple medical issues post-hospitalization. We covered managing her blood pressure and the importance of medication adjustment by specialist Dr. Spencer. The potential nerve damage identified through forthcoming MRI investigations was emphasized. I suggested calorie-rich meal replacements such as Ensure Renal, designed for her kidney condition, to aid in dietary insufficiencies and recovery. Emphasized rest while maintaining some activity to boost strength pre- surgery. Urged to monitor vital signs closely and report any new symptoms promptly. I stressed the need for proactively scheduled follow-up imaging for the lung opacity. Informed about the x-ray procedure to ensure there is no substantial obstruction causing constipation. The patient consented to care plans, and we are awaiting x-ray results. Assessment and Plan 1. Transitional Care Management: Ongoing transitional care required following recent hospitalizations and surgeries. Coordinating medication adjustments with Dr. Millard and continuous monitoring of symptoms. I spoke w/ him, he recommended STOP clonidine, hydralazine and nifedipine. Could consider adding hydralazine back at lower dosing such as 50mg TID. Message to his office to schedule a close interim fu. 2. Post-surgical complications: Address potential nerve damage post-femoral stenting. MRI scheduled for further evaluation and management to improve patient's mobility and urinary issues.Cont fu with Vascular as they are managing this. 3. Blood pressure management: Notably lo w blood pressure addressed with current medication review and adjustments. See above. 4. Nutritional insufficiency: Presented significant weight loss and eating challenges. Ensure Renal recommended for dietary supplement. Monitored for improvement in nutritional status. 5. Constipation: Identified constipation ; cont metamucil and colace, check KUB to r/o obstruction. 6. Ground glass opacity 2.[address] scan 07/2024 at [facility], repeat CT scan due in 6 months. I did not order this today, as it is a secondary concern relative to her other emergent conditions. 7 S/p R CEA, R renal artery stent, SMA s tent: plavix for 90 days, aSA 8. Flash pulm edema, ? sadi syndrom e. Consider sleep study in the future. Patient Instructions - Monitor blood pressure regularly and r eport significant changes. - Start Ensure Renal or similar suppleme nts. - Maintain hydration; drink ample water. - Use a transport chair to prevent falls and avoid unnecessary exertion. - Eat small, frequent, nutrition-rich me als. - Ensure prompt follow-ups for imaging a nd blood work. - Seek care immediately if experiencing severe abdominal pain or significant changes in health status. Consent The patient consented to x-ray procedures to determine the presence of a bowel obstruction after risks and benefits were fully explained. She was informed of the importance of using a transport chair and nutritional supplementation to achieve optimal recovery ahead of impending surgery. Consent was granted verbally from both patient and electrical development engineer, Leila. Patient was informed and verbally consented to the use of an ambient scribe for clinic note documentation during this visit. Total time spent caring for the patient today was 70 minutes. This includes time spent before the visit reviewing the chart, time spent during the visit, and time spent after the visit on documentation, reviewing laboratory results, diagnostic imaging, medications, performing a medically necessary evaluation, counseling on diagnoses, care coordination, ordering appropriate tests, ordering appropriate medications, review of tests performed by other providers, reporting test results with the patient, communication with other healthcare providers. 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 Stenosis of right carotid artery greater than 50% Stenosis, spinal, lumbar Tachycardia Surgical History (Updated 08/21/24 @ 12:33 by [facility]) No pertinent past surgical history Social History Household Members: Children Household Members Other:: daughter Housing: House Are you a primary critical care registered nurse to a significant other at home: No Do you presently have visiting nurse or other home services: No 75 years or older and lives alone: No Alcohol intake: current Alcohol intake frequency: holidays/special occasions only Alcohol type: beer Patient Tobacco Use Status: Former Tobacco user Tobacco use type: Cigarette Cigarette Packs Per Day: 0 Cigarettes Per Day: 2 e-Cigarette/Vaping Use: Never Used service: No Current occupational status: retired Current occupation: right handed, retired Sexual orientation: Unable to collect Gender identity: Unable to collect Cognitive needs: No Hearing needs: No Vision needs: Yes (wears glasses to drive.) Questionnaire PHQ-9 Over the last 2 weeks, how often have you been bothered by any of the following problems? 16893 - PHQ-9 Billing: Patient declined-do not bill Source: Developed by Drs. Jayy Nguyễn, Stephy Coyle, Luis Walker and colleagues, with an educational tino from [employer]. Thrive Questionnaire Date Thrive assessed: 08/21/24 I am a: Patient What is your living situation today?: I have a steady place to live Within the past 12 months, did the food you bought not last and you didn't have the money to get more?: Never true Within the past 12 months, did you worry whether your food would run out before you got money to buy more?: Never true Do you have trouble paying for medicines?: No Do you have trouble getting transportation to medical appointments?: No Do you have trouble paying your heating and electricity bill?: No Do you have trouble taking care of your child, family member or friend?: No Do you have trouble with day-to-day activities such as bathing, preparing meals, shopping, managing finances, etc.?: No Are you currently unemployed and looking for a job?: No Are you interested in more education?: No THRIVE Score: 0 DRE-7 AMB Questionnaire DRE-7 Date DRE - 7 assessed: 07/21/24 Feeling nervous, anxious, or on edge: 0 = Not at all Not being able to stop or control worryin = Not at all Worrying too much about different things: 0 = Not at all Trouble relaxin = Not at all Being so restless that it is hard to sit still: 0 = Not at all Becoming easily annoyed or irritable: 0 = Not at all Feeling afraid as if something awful might happen: 0 = Not at all Total DRE-7 score (0-4 normal; 5-9 mild; 10-14 moderate; 15-21 severe): 0 Source: Developed by Drs. Jayy Nguyễn, Stephy Coyle, Luis Walker and colleagues, with an educational tino from [employer]. DRE-7 Assessment Billing DRE-7 Assessment Tool: DRE-7 Assessment 98493 Physical exam (Primary Care) Vital Signs: Last Vital Signs Temp 96.9 F 08/21/24 11:34 Pulse 70 08/21/24 11:34 Resp 12 08/21/24 11:34 BP 82/58 L 08/21/24 11:34 Pulse Ox 99 08/21/24 11:34 Oxygen Delivery Method Room Air 08/21/24 11:34 BMI result Body Mass Index 25.7 Tobacco/Smoking Status: Tobacco use Status Tobacco use date assessed 08/21/24 08/21/24 11:31 Patient Tobacco Use Status Former Tobacco user 08/21/24 11:31 Tobacco use type Cigarette 08/21/24 11:31 e-Cigarette/Vaping Use Never Used 08/21/24 11:31 Thrive Assessment: Date of Thrive Assessment Date Thrive assessed 08/21/24 08/21/24 11:31 Coding Level of Care Code TCM High MDM <= 14 days Complex EM visit Add On G2211 Diagnoses Hospital discharge follow-up Z09 Other constipation K59.09 Constipation type: other constipation type History of right-sided carotid endarterectomy Z98.890 Right renal artery stenosis I70.1 Superior mesenteric artery stenosis K55.1 History of acute pulmonary edema Z87.09 Urinary incontinence without sensory awareness N39.42 Paresthesia of saddle area R20.2 Stage 3b chronic kidney disease N18.32 Chronic kidney disease stage 3 subtype: stage 3b (GFR 30-44) Nodule of apex of right lung R91.1 At risk for malnutrition Z91.89 CPT Codes PROLONG OUTPT/OFFICE VIS - G2212 Additional Codes DRE-7 Assessment Billing - DRE-7 Assessment Tool: DRE-7 Assessment 97331 ([id number]) Assessment & Plan Assessment & Plan (1) Hospital discharge follow-up: Code(s): Z09 - Encounter for follow-up examination after completed treatment for conditions other than malignant neoplasm Category: Medical (2) Constipation: Code(s): K59.00 - Constipation, unspecified Category: Medical Qualifiers: Constipation type: other constipation type Qualified Code(s): K59.09 - Other constipation (3) History of right-sided carotid endarterectomy: Comment: 07/30/24 dr love Code(s): Z98.890 - Other specified postprocedural states Category: Surgical (4) Right renal artery stenosis: Comment: s/p stent 08/05/24 Dr Love Code(s): I70.1 - Atherosclerosis of renal artery Category: Medical (5) Superior mesenteric artery stenosis: Comment: s/p stent 08/05/24 Dr Love Code(s): K55.1 - Chronic vascular disorders of intestine Category: Medical (6) History of acute pulmonary edema: Comment: 08/02/24 [facility] ? sadi syndrome check sleep study in the future Code(s): Z87.09 - Personal history of other diseases of the respiratory system Category: Medical (7) Urinary incontinence without sensory awareness: Code(s): N39.42 - Incontinence without sensory awareness Category: Medical (8) Paresthesia of saddle area: Code(s): R20.2 - Paresthesia of skin Category: Medical (9) CKD (chronic kidney disease) stage 3, GFR 30-59 ml/min: Comment: 08/2022 gfr 44 cr 1.23; 07/11/23 Bun 21 cr 1.63 egfr 32 stable avoid nephrotoxic agents. Atrophic left kidney noted on imaging July 2023 done by vascular 09/2023 elevated parathyroid hormone 114.7, vitamin-D & Ca WNL, BUN 25, creatinine 1.43, GFR 37 Code(s): N18.30 - Chronic kidney disease, stage 3 unspecified Category: Medical Qualifiers: Chronic kidney disease stage 3 subtype: stage 3b (GFR 30-44) Qualified Code(s): N18.32 - Chronic kidney disease, stage 3b (10) Nodule of apex of right lung: Comment: Ground glass opacity 2.[address] scan 07/2024 at [facility], repeat CT scan due in 6 months. I did not order this today, as it is a secondary concern relative to her other emergent conditions. Code(s): R91.1 - Solitary pulmonary nodule Category: Medical (11) At risk for malnutrition: Code(s): Z91.89 - Other specified personal risk factors, not elsewhere classified Category: Medical Plan . Orders: Orders XR KUB Today K59.00 - Constipation, unspecified Medications: Discontinued aliskiren Discontinued Reason: Doctor's Order 300 mg PO DAILY 30 tabs 1RF clonidine HCl Discontinued Reason: Doctor's Order 0.2 mg PO BID 60 tabs 3RF
[2024-08-21 11:34] VITALS: BP 82/58; PULSE 70; RESP 12; TEMP 36.1; O2SAT 99; BMI 25.7
[2024-08-21 12:14] VITALS: BP 94/54
--- OUTSIDE RECORDS SUMMARY | 2024-08-21 13:41 | XMS_ITS | Clinical Summary ---
Author Organization [employer] [facility] it Address [address] [place] [address] Care Team Providers Care Dobby Loom Weaver Name Role Phone Constance Tarawilmer Ponce NP Primary Care Provider [phone] Surgical History Surgery Date Site/Laterality Comments OTHER SURGICAL HISTORY 04/20/2022 PROCEDURE: AL WILKES FACETECTOMY & FORAMOTOMY 1 VRT SGM LUMBAR; COMMENT: Bilateral L3-4, L4-5 decompression from a left-sided approach, Dr. Vazquez Social History Tobacco Use Types Packs/Day Years Used Date Smoking Tobacco: Every Day Cigarettes Smokeless Tobacco: Never Comments Unknown Sex and Gender Information Value Date Recorded Sex Assigned at Not on file Legal Sex Female 9:45 AM EST Gender Identity Not on file Sexual Orientation [...] Last Done Comments Breast Cancer Screening 1955 DTaP,Tdap,and Td Vaccines (1 - Tdap) 1976 Pneumococcal Vaccine: 50+ Years (1 of 2 - PCV) 1976 Zoster Vaccines (1 of 2) 2007 [...] patient's age to complete this topic Meningococcal B Vacine Aged Out No lo nger eligible based on patient's age to complete this topic RSV Immunization Patients Under 20 months Aged Out No longer eligible b ased on patient's age to complete this topic Varicella Vaccines Aged Out No longer eligible based on patient's age to complete this topic Care Teams Dobby Loom Weaver Relationship Specialty Start Date End Date Tara Nolasco NP [address] [place] [address] [address] [place] [address] PCP - General 06/21/22
--- OUTSIDE RECORDS SUMMARY | 2024-08-21 13:41 | XMS_ITS | Continuity of Care Document ---
Author Organization [facility] Address [address] [place] [address]- Care Team Providers Care Youth Minister Name Role Phone Kamini REYES Garret Tk Primary Care Physician Encounter [facility] [place] Date(s): 07/14/24 - 07/21/24 [facility] [address], [place] [address] Attending Physician: Derek Gill MD Admitting Physician: Derek Gill MD Encounter Type: Office Visit Medications Albuterol (Eqv-ProAir HFA) 90 mcg/inh inhalation aerosol 8 Gm, 0 Refill(s), INHALE 2 PUFFS BY MOUTH EVERY 4 TO 6 HOURS NEEDED FOR WHEEZING, 0 Refills, 05/05/24 4:08:00 PM EST, Partial fill upon patient request if the prescription is for a schedule II opioid drug. Start Date: 05/05/24 Status: Ordered Repeat number: 1 albuterol-ipratropium 3 mg-0.5 mg/3 ml inhalation solution 0 Refills, Maintenance, 07/21/24 7:59:00 AM EST, Partial fill upon patient request if the prescription is for a schedule II opioid drug. Start Date: 07/21/24 Status: Ordered Repeat number: 1 aliskiren 300 mg oral tablet 0 Refills, Maintenance, 07/21/24 7:59:00 AM EST, Partial fill upon patient request if the prescription is for a schedule II opioid drug. Start Date: 07/21/24 Status: Ordered Repeat number: 1 amLODIPine 10 [...] Date: 05/05/24 Status: Ordered Repeat number: 1 budesonide 0.25 mg/2 mL inhalation suspension Refills 0, Maintenance, 07/21/24 7:59:00 AM EST Start Date: 07/21/24 Status: Ordered Repeat number: 1 buPROPion 200 [...] 05/05/24 Status: Ordered Repeat number: 1 hydrALAZINE 50 mg oral tablet 0 Refills, Maintenance, 07/21/24 7:59:00 AM EST, Partial fill upon patient request if the prescription is for a schedule II opioid drug. Start Date: 07/21/24 Status: Ordered Repeat number: 1 levothyroxine 0.05 [...] Confirmed Active Renal artery stenosis Confirmed Active Vital Signs Most recent to oldest [Reference Range]: 1 Height 167.5 cm (07/14/24 1:55 PM) Weight 79.38 kg (07/14/24 1:55 PM) Body Mass Index [18.5-24.99 kg/m2] 28.29 kg/m2 *H* (07/14/24 1:55 PM) Weight Obtained Via Patient/family state d (07/14/24 1:55 PM) Social History Social History Type Response Smoking Status Former smoker, quit more than 30 days ago entered on: 07/21/24 Sex Sex Representation Female (finding) Note * Deyanira Fontanez: PERFORM Event Display: Patient Education/Instruction Authored Date: [id number] Ambulatory Adult Visit Summary [facility] [address] [facility] [address] [place] [address] Name: FARZANA ASHTON : 1955?? Visit: 07/14/2024 13:24?? Ambulatory Visit Instructions ?? Your Care Team Primary Care Provider Garret Suárez NP? This Visit Provider Derek Gill MD Vitals Signs Height: 167.5 cm Weight: 79.38 kg Body Mass Index:??28.29 kg/m2??High Body surface area: 1.92 What to do next Future Orders CBC w/ Differential - Routine, Once, pre op test, 06/19/24 3:00:00 EST, Future Order, [facility], Blood?? Electrolytes (Lytes) - Routine, Once, pre op test, 06/19/24 3:00:00 EST, Future Order, [facility], Blood?? BUN - Routine, Once, pre op test, 06/19/24 3:00:00 EST, Future Order, [facility], Blood?? Creatinine - Routine, Once, pre op test, 06/19/24 3:00:00 EST, Future Order, [facility], Blood?? Medications The list below reflects the information in our records and provided by you today along with any changes made during this visit. Please continue your medications until treatment is completed or stopped by your provider. If this is different from the information you have or there are other questions,please contact the prescribing provider. What How Much When Instructions Unchanged Albuterol (Albuterol (Eqv-ProAir HFA) 90 mcg/ inh inhalation aerosol) 8 Gm, 0 Refill(s), INHALE 2 PUFFS BY MOUTH EVERY 4 TO 6 HOURS NEEDED FOR WHEEZING ?? Unchanged aliskiren (aliskiren 150 mg oral tablet) 90 each, 0 Refill(s), TAKE 1 TABLET BY MOUTH DAILY IN ADDITION TO LOSARTAN ?? Unchanged Amlodipine (amLODIPine 10 mg oral tablet) 90 each, 0 Refill(s), TAKE 1 TABLET BY MOUTH DAILY ?? Unchanged Aspirin (aspirin 81 mg oral capsule) 1 capsule Oral Every 24 hours Unchanged Atenolol (atenolol 50 mg oral tablet) 180 each, 0 Refill(s), TAKE 1 TABLET BY MOUTH TWICE DAILY ?? Unchanged BuPROpion (buPROPion 200 mg/ 12 hours (SR) oral tablet, extended release) 90 each, 0 Refill(s), TAKE 1 TABLET BY MOUTH EVERY MORNING ?? Unchanged Clonidine (cloNIDine 0.3 mg oral tablet) 180 each, 0 Refill(s), TAKE 1 TABLET BY MOUTH TWICE DAILY ?? Unchanged hydrALAZINE (hydrALAZINE 25 mg oral tablet) 270 each, 0 Refill(s), TAKE 1 TABLET BY MOUTH THREE TIMES DAILY ?? Unchanged Levothyroxine (levothyroxine 0.05 mg oral tablet) 90 each, 0 Refill(s), TAKE 1 TABLET BY MOUTH DAILY ?? Unchanged Miscellaneous Rx 1 each, 0 Refill(s) ?? Unchanged Omeprazole (omeprazole 20 mg oral enteric coated capsule) 180 each, 0 Refill(s), TAKE 1 CAPSULE BY MOUTH TWICE DAILY ?? Unchanged rivaroxaban (Xarelto 2.5 mg oral tablet) 180 each, 0 Refill(s), TAKE 1 TABLET BY MOUTH TWICE DAILY ?? Unchanged Rosuvastatin (rosuvastatin 10 mg oral tablet) 30 each, 0 Refill(s), TAKE 1 TABLET BY MOUTH DAILY ?? Unchanged Sertraline (sertraline 100 mg oral tablet) 90 each, 0 Refill(s), TAKE 1 TABLET BY MOUTH DAILY ?? Medications and Immunizations Administered Medications Given During Visit No medications given during this visit.?? Allergies (NKA means No Known Allergies) No active allergies Common Emergency Awareness Tips IS IT A STROKE? Act FAST and Check for these signs: FACE Does the face look uneven? ARM Does one arm drift down? SPEECH Does their speech sound strange? TIME Call at any sign of stroke ?? Heart Attack Signs Chest discomfort: Most heart attacks involve discomfort in the center of the chest and lasts more than a few minutes, or goes away and comes back. It can feel like uncomfortable pressure, squeezing, fullness or pain. Discomfort in upper body: Symptoms can include pain or discomfort in one or both arms, back, neck, jaw or stomach. Shortness of breath: With or without discomfort. Other signs: Breaking out in a cold sweat, nausea, or lightheaded. Remember, MINUTES DO MATTER. If you experience any of these heart attack warning signs, call to get immediate medical attention! ?? Smoking can increase your chances of developing chronic health problems and can cause harmful effects to other family members in your house. If you smoke, you are strongly encouraged to quit. Please call [facility] at [phone] or [phone] ([phone]) or log in to [email or web address] for referrals to smoking cessation programs. ?? The National Suicide Prevention Hotline is available 14/01 if you or someone you know needs to find a reason to keep living. By calling 7-673-253-pabi (9088) you'll be connected to a skilled, trained counselor at a crisis center in your area. [facility] You can view and manage your care through the patient portal or by using a health care christophe of your choosing. [employer] is a website that allows you to securely view your medical information including your hospital discharge summary, office visit summaries, medications and follow-up visits. You can also request appointments, renew medications, and request access to your medical information using a health care christophe of your choosing, or just ask a question. You can enroll at [email or web address] or register during your next office visit. [facility], in keeping with [facility] guidance, no longer requires face masks for staff, patientsor visitors in most situations. Similiar to time spent indoors at other locations, there is the chance that you were exposed to repiratory viruses during your time with us (such as flu or COVID-19). If you develop symptoms concerning for a viral respiratory infection, please seek testing (and treatment if indicated) from your medical provider or home test kit. ?? Disclaimer: The information provided is of a general nature and is intended to be used in conjunction with the recommendations and advice of your health care practitioner. Every effort has been made to ensure that the information provided is accurate and complete at the time it is provided to you however, as your needs change, or, as new information becomes available, different or additional instructions may be required. ?? If you have questions, please consult with your primary care provider or pharmacist, as appropriate. This information is not intended to serve as substitution for assessment and evaluation by a qualified health care provider. If you do not have a primary care provider, you may find a [facility] provider by calling [facility] at [phone]. Patient Care team information Care Team Personnel Name: Garret Suárez NP Position: S Outreach Member Role: PCP Address: [address] [place] [id number] Telecom: Care Team Related Persons Name: GARRET ASHTON Insurance Providers Guarantor name: FARZANA ASHTON Health Plan Information #: 2 Payer: MEDEX Member Number: [id number] Policy Number: NA Group Number: NA Health Plan Information #: 1 Payer: MEDICARE PART B OUTPT Member Number: [id number] Policy Number: NA Group Number: NA
--- OUTSIDE RECORDS SUMMARY | 2024-08-21 13:41 | XMS_ITS | Continuity of Care Document ---
Author Organization [facility] Address [address] [place] [address]- Care Team Providers Care Behavioral Science Chair Name Role Phone Garret Suárez NP Primary Care Physician [place] [facility] [place](s): 07/21/24 - 07/28/24 [facility] [address] [place] [address]- Encounter Diagnosis CKD (chronic kidney disease)(Discharge Diagnosis) - 07/21/24 Claudication of lower extremity(Discharge Diagnosis) - 07/21/24 Renal artery stenosis(Discharge Diagnosis) - 07/21/24 Attending Physician: Derek Gill MD Admitting Physician: Derek Gill MD Referring Physician: Garret Suárez NP Encounter Type: Office Visit Allergies, Adverse Reactions, Alerts Substance Criticality Severity Reaction Reaction Severity Status codeine GI upset Active Medications Albuterol (Eqv-ProAir HFA) 90 mcg/inh inhalation aerosol 8 Gm, 0 Refill(s), INHALE 2 PUFFS BY MOUTH EVERY 4 TO 6 HOURS NEEDED FOR WHEEZING, 0 Refills, 05/05/24 4:08:00 PM EST, Partial fill upon patient request if the prescription is for a schedule II opioid drug. Start Date: 05/05/24 Status: Ordered Repeat number: 1 albuterol-ipratropium 3 mg-0.5 mg/3 ml inhalation solution 3 mL, Neb, 2 times a day, 0 Refills, Maintenance, 07/21/24 7:59:00 AM EST, Partial fill upon patientrequest if the prescription is for a schedule II opioid drug. Start Date: 07/21/24 Status: Ordered Repeat number: 1 aliskiren 300 mg oral tablet 1 tablet = 300 mg, By Mouth, Daily, 0 Refills, Maintenance, 07/21/24 7:59:00 AM EST, Partial fill upon patient request if the prescription is for a schedule II opioid drug. Start Date: 07/21/24 Status: Ordered Repeat number: 1 amLODIPine 10 mg oral tablet 1 tablet = 10 mg, By Mouth, Daily, 0 Refills, 05/05/24 4:08:00 PM EST, Partial [...] number: 1 atenolol 50 mg oral tablet 50 mg, 1, tablet, By Mouth, 2 times a day, Refills 0, 05/05/24 4:08:00 PM EST, Partial fill upon patient request if the prescription is for a schedule II opioid drug. Start Date: 05/05/24 Status: Ordered Repeat number: 1 budesonide 0.25 mg/2 mL inhalation suspension 0.25 mg, 2, mL, 2 times a day, Refills 0, Maintenance, 07/21/24 7:59:00 AM EST Start Date: 07/21/24 Status: Ordered Repeat number: 1 buPROPion 200 mg/12 hours (SR) oral tablet, extended release 1 tablet = 200 mg, By Mouth, Daily in AM, 0 Refills, 05/05/24 4:08:00 PM EST, Partial fill upon patient request if the prescription is for a schedule II opioid drug. Start Date: 05/05/24 Status: Ordered Repeat number: 1 cloNIDine 0.2 mg oral tablet 0.2 mg, 1, tablet, By Mouth, 2 times a day, Refills 0, Maintenance, 07/28/24 2:43:00 PM EST, Partial fill upon patient request if the prescription is for a schedule II opioid drug. Start Date: 07/28/24 Status: Ordered Repeat number: 1 gabapentin 600 mg oral tablet 2 tablet = 1,200 mg, By Mouth, Daily at bedtime, 0 Refills, Maintenance, 07/28/24 2:30:00 PM EST, Partial fill upon patient request if the prescription is for a schedule II opioid drug. Start Date: 07/28/24 Status: Ordered Repeat number: 1 hydrALAZINE 50 mg oral tablet By Mouth, 3 times a day, 0 Refills, Maintenance, 07/21/24 7:59:00 AM EST, Partial fill upon patient request if the prescription is for a schedule II opioid drug. Start Date: 07/21/24 Status: Ordered Repeat number: 1 levothyroxine 75 mcg (0.075 mg) oral tablet 1 tablet = 75 mcg, By Mouth, Daily Start Date: 07/28/24 Status: Ordered Repeat number: 1 LORazepam 0.5 mg oral tablet 1 tablet = 0.5 mg, By Mouth, Daily at bedtime, PRN as needed for anxiety Start Date: 07/28/24 Status: Ordered Repeat number: 1 omeprazole 20 mg oral enteric coated capsule 1 capsule = 20 mg, By Mouth, 2 times a day, 0 Refills, 05/05/24 4:09:00 PM EST, Partial fill upon patient request if the prescription is for a schedule II opioid drug. Start Date: 05/05/24 Status: Ordered Repeat number: 1 rosuvastatin 10 mg oral tablet 1 tablet = 10 mg, By Mouth, Daily, 0 Refills, 05/05/24 4:09:00 PM EST, Partial fill upon patient request if the prescription is for a schedule II opioid drug. Start Date: 05/05/24 Status: Ordered Repeat number: 1 sertraline 100 mg oral tablet 1 tablet = 100 mg, By Mouth, Daily, 0 Refills, 05/05/24 4:09:00 PM EST, Partial fill upon patient request if the prescription is for a schedule II opioid drug. Start Date: 05/05/24 Status: Ordered Repeat number: 1 Problem List Condition Confirmation Course Effective Dates Status Health St atus Informant CKD (chronic kidney disease) Confirmed Active Claudication of lower extremity Confirmed Active Renal artery stenosis Confirmed Active Diagnosis Diagnosis Type Effective Dates Health Status Clinical Service Informant CKD (chronic kidney disease) Discharge Diagnosis 07/21/24 Claudication of lower extremity Discharge Diagnosis 07/21/24 Renal artery stenosis Discharge Diagnosis 07/21/24 Vital Signs Most recent to oldest [Reference Range]: 1 Height 167.5 cm (07/21/24 8:00 AM) Weight 79.38 kg (07/21/24 8:00 AM) Oxygen Saturation [94-100 %] 98 % (07/21/24 8:00 AM) Pulse Rate [55-90 bpm] 76 bpm (07/21/24 8:00 AM) Body Mass Index [18.5-24.99 kg/m2] 28.29 kg/m2 *H* (07/21/24 8:00 AM) Blood Pressure [90-138/55-84 mm Hg] 168/ 72mm Hg *H* (07/21/24 8:00 AM) Mode of Delivery (Oxygen) Room air (07/21/24 8:00 AM) Blood pressure sites Arm, left (07/21/24 8:00 AM) Weight Obtained Via Patient/family state d (07/21/24 8:00 AM) Social History Social History Type Response Smoking Status Former smoker, quit more than 30 days ago entered on: 07/21/24 Sex Sex Representation Female (finding) Note * Deyanira Fontanez: PERFORM Event Display: Patient Education/Instruction Authored Date: Ambulatory [place] [address] Name: FARZANA ASHOTN : 1955?? Visit: 07/21/2024 07:41?? Ambulatory Visit Instructions ?? Your Care Team Primary Care Provider Garret Suárez NP? This Visit Provider Derek Gill MD Your Diagnosis CKD (chronic kidney disease) Claudication of lower extremity Renal artery stenosis Vitals Signs Pulse Rate: 76 bpm Height: 167.5 cm Systolic Blood Pressure:??168 mm Hg??High Weight: 79.38 kg Diastolic Blood Pressure: 72 mm Hg Body Mass Index:??28.29 kg/m2??High Oxygen Saturation: 98 % Body surface area: 1.92 What to do [...] 6 HOURS NEEDED FOR WHEEZING ?? Unchanged Albuterol/ Ipratropium (albuterol-ipratropium 3 mg-0.5 mg/ 3 ml inhalation solution) Unchanged aliskiren (aliskiren 300 mg oral tablet) Unchanged Amlodipine (amLODIPine 10 mg oral tablet) 90 each, 0 Refill(s), TAKE 1 TABLET BY MOUTH DAILY ?? Unchanged Aspirin (aspirin 81 mg oral capsule) 1 capsule Oral Every 24 hours Unchanged Atenolol (atenolol 50 mg oral tablet) 180 each, 0 Refill(s), TAKE 1 TABLET BY MOUTH TWICE DAILY ?? Unchanged Budesonide (budesonide 0.25 mg/ 2 mL inhalation suspension) Unchanged BuPROpion (buPROPion 200 mg/ 12 hours (SR) oral tablet, extended release) 90 each, 0 Refill(s), TAKE 1 TABLET BY MOUTH EVERY MORNING ?? Unchanged Clonidine (cloNIDine 0.3 mg oral tablet) 180 each, 0 Refill(s), TAKE 1 TABLET BY MOUTH TWICE DAILY ?? Unchanged hydrALAZINE (hydrALAZINE 50 mg oral tablet) Unchanged Levothyroxine (levothyroxine 0.05 mg oral tablet) 90 each, 0 Refill(s), TAKE 1 TABLET BY MOUTH DAILY ?? Unchanged Omeprazole (omeprazole 20 mg oral enteric coated capsule) 180 each, 0 Refill(s), TAKE 1 CAPSULE BY MOUTH TWICE DAILY ?? Unchanged Rosuvastatin [...] are strongly encouraged to quit. Please call [facility] at [phone] or [phone] ([phone]) or log in to [email or web address] for referrals to smoking cessation programs. ?? The National Suicide Prevention Hotline is available 14/01 if you or someone you know needs to find a reason to keep living. By calling 0-032-833-BlueSpace (5193) you'll be connected to a skilled, trained counselor at a crisis center in your area. [facility] Portal You can view and manage your care through the patient portal or by using a health care christophe of your choosing. [employer] is a website that allows you to securely view your medical information including your hospital discharge summary, office visit summaries, medications and follow-up visits. You can also request appointments, renew medications, and request access to your medical information using a health care christophe of your choosing, or just ask a question. You can enroll at [email or web address] or register during your next office visit. [facility], in keeping with [facility] guidance, no longer requires face masks for [...] primary care provider, you may find a [facility] provider by calling [facility] Link at [phone]. Patient Care team information Care Team Personnel Name: Garret Suárez NP Position: [facility] Outreach Member Role: PCP Address: [address] [place] [address] Telecom: Care Team Related Persons Name: GARRET ASHTON Insurance Providers Guarantor name: FARZANA ASHTON Health Plan Information #: 1 Payer: MEDICARE PART B OUTPT Member Number: [id number] Policy Number: NA Group Number: NA Health Plan Information #: 2 Payer: MEDEX Member Number: [id number] Policy Number: NA Group Number: NA
--- OUTSIDE RECORDS SUMMARY | 2024-08-21 13:42 | XMS_ITS | Continuity of Care Document ---
Author Organization [facility] ter Address [address] [place] [id number]- Care Team Providers Care Fireboat Operator Name Role Phone Kamini REYES, Garret L Primary Care Physician [phone] Encounter [facility] [place] Date(s): 08/02/24 - 08/06/[address] [id number] Encounter Diagnosis Pulmonary edema(Final) - 08/02/24 Pulmonary edema(Final) - 08/06/24 Discharge Disposition: A-D/C Home Attending Physician: Lauren Arita MD Admitting Physician: Tammy Zuniga MD Referring Physician: Not on Staff, Referring MD Encounter Type: Disch IP Allergies, Adverse Reactions, Alerts Substance Criticality Severity Reaction Reaction Severity Status codeine GI upset Active Immunizations Given and Recorded Vaccine Date Status Refusal Reason zoster vaccine, inactivated 03/19/23 Recorded zoster vaccine, inactivated 11/20/22 Recorded RSV vaccine, preF A-preF B, recombinant 03/19/23 R ecorded SARS-CoV-2 (COVID-19) mRNA-1273 vaccine 06/15/21 R ecorded SARS-CoV-2 (COVID-19) Ad26 vaccine 08/30/20 Record ed Medications Albuterol (Eqv-ProAir HFA) 90 mcg/inh inhalation [...] Date: 07/21/24 Status: Ordered Repeat number: 1 aspirin 81 [...] Date: 05/05/24 Status: Ordered Repeat number: 1 carvedilol 12.5 mg oral tablet 25 mg, Tablet, By Mouth, 08/06/24 9:00:00 AM EST Start Date: 08/06/24 Stop Date: 08/06/24 Status: Completed Repeat number: 1 cloNIDine 0.2 mg oral tablet 0.2 mg, 1, tablet, By Mouth, 2 times a day, Refills 0, Maintenance, 07/28/24 2:43:00 PM EST, Partial fill upon patient request if the prescription is for a schedule II opioid drug. Start Date: 07/28/24 Status: Ordered Repeat number: 1 docusate sodium 100 mg oral capsule 1 capsule = 100 mg, By Mouth, 2 times a day, # 20 capsule, 0 Refills, Maintenance, 07/31/24 12:47:00 PM EST, Capsule, [id number], Partial fill upon patient request if the prescription is for a schedule II opioid drug., 168, cm, 07/31/24 12:03:00 EST, Height, 79, kg, 07/30/24 17:04:00 EST, Dry Weight Start Date: 07/31/24 Status: Ordered Quantity: 20.0 Unit: capsule Repeat number: 1 gabapentin 300 mg oral capsule 600 mg, Capsule, By Mouth, 08/06/24 9:00:00 AM EST Start Date: 08/06/24 Stop Date: 08/06/24 Status: Completed Repeat number: 1 gabapentin 600 mg oral tablet 2 tablet = 1,200 mg, By Mouth, Daily at bedtime, 0 Refills, Maintenance, 07/28/24 2:30:00 PM EST, Partial fill upon patient request if the prescription is for a schedule II opioid drug. Start Date: 07/28/24 Status: Ordered Repeat number: 1 hydrALAZINE 100 mg oral tablet 1 tablet = 100 mg, By Mouth, 3 times a day, # 90 tablet, 0 Refills, Maintenance, 08/06/24 10:26:00 AM EST, [facility], Partial fill upon patient request if the prescription is for a schedule II opioid drug., 168, cm, 08/06/24 7:45:00 EST, Height, 78.5, kg, 08/02/24 22:48:00 EST, Dry Weight Start Date: 08/06/24 Status: Ordered Quantity: 90.0 Unit: tablet Repeat number: 1 hydrALAZINE 25 mg oral tablet 100 mg, Tablet, By Mouth, 08/06/24 9:00:00 AM EST Start Date: 08/06/24 Stop Date: 08/06/24 Status: Completed Repeat number: 1 isosorbide mononitrate 30 mg oral tablet, extended release 1 tablet = 30 mg, By Mouth, Daily, # 30 tablet, 0 Refills, Maintenance, 08/06/24 10:23:00 AM EST, ERTablet, [facility], Partial fill upon patient request if the prescription is for a schedule II opioid drug., 168, cm, 08/06/24 7:45:00 EST, Height, 78.5, kg, 08/02/24 22:48:00 EST, Dry Weight Start Date: 08/06/24 Status: Ordered Quantity: 30.0 Unit: tablet Repeat number: 1 levothyroxine 75 mcg (0.075 mg) oral tablet 1 tablet = 75 mcg, By Mouth, Daily Start Date: 07/28/24 Status: Ordered Repeat number: 1 LORazepam 0.5 mg oral tablet 1 tablet = 0.5 mg, By Mouth, Daily at bedtime, PRN as needed for anxiety Start Date: 07/28/24 Status: Ordered Repeat number: 1 NIFEdipine 60 mg oral tablet, extended release 60 mg, 1, tablet, By Mouth, Daily, # 30 tablet, Refills 0, Tot. Refills 0, Maintenance, 08/06/24 10:23:00 AM EST, Route to Pharmacy Electronically, [facility], Partial fill upon patient request if the prescription is for a schedule II opioid drug., 168, cm, 08/06/24 7:45:00 EST, Height, 78.5, kg, 08/02/24 22:48:00 EST, Dry Weight Start Date: 08/06/24 Status: Ordered Quantity: 30.0 Unit: tablet Repeat number: 1 NIFEdipine 60 mg oral tablet, extended release 60 mg, ER Tablet, By Mouth, 08/06/24 9:00:00 AM EST Start Date: 08/06/24 Stop Date: 08/06/24 Status: Completed Repeat number: 1 omeprazole 20 mg oral enteric coated capsule 1 capsule = 20 mg, By Mouth, 2 times a day, 0 Refills, 05/05/24 4:09:00 PM EST, Partial fill upon patient request if the prescription is for a schedule II opioid drug. Start Date: 05/05/24 Status: Ordered Repeat number: 1 Plavix 75 mg oral tablet 75 mg, 1, tablet, By Mouth, Daily, # 90 tablet, Refills 0, Tot. Refills 0, Maintenance, 08/06/24 10:47:00 AM EST, Route to Pharmacy Electronically, [facility], Partial fill upon patient request if the prescription is for a schedule II opioid drug., 168, cm, 08/06/24 10:44:00 EST, Height, 78.5, kg, 08/02/24 22:48:00 EST, Dry Weight Start Date: 08/06/24 Stop Date: 11/04/24 Status: Ordered Quantity: 90.0 Unit: tablet Repeat number: 1 rosuvastatin 10 mg oral [...] Date: 05/05/24 Status: Ordered Repeat number: 1 Tylenol 325 mg oral tablet 975 mg, By Mouth, Every 6 hours, PRN, Refills 0, Maintenance, Pain , Mild, 07/31/24 11:59:00 AM EST, Partial fill upon patient request if the prescription is for a schedule II opioid drug. Start Date: 07/31/24 Status: Ordered Repeat number: 1 Problem List Condition Confirmation Course Effective Dates Status Health St atus Informant Carotid stenosis Confirmed Active CKD (chronic kidney disease) Confirmed Active Claudication of lower extremity Confirmed Active Renal artery stenosis Confirmed Active Results Radiology Reports * Exam Date Time Procedure Performing Provider Status 08/02/24 5:[address] Angio Chest Karoline Lara; Auth (Nadine ified) Notes: (CT Angio Chest) Reason For Exam: hx DVT, not on anticoag pending aortofemoral bypass; positive D-dimer,;Other: RESULT: CT Angio Chest EXAMINATION: CT Angio Chest INDICATION: Hx of Present Illness: resp distress; Reason: Other:; hx DVT, not on anticoag pending aortofemoral bypass; positive D-dimer,; Clinical Question(s): Pulmonary Embolism TECHNIQUE: Spiral CTA of the chest was performed after rapid IV contrast administration without cardiac gating, triggered by an ERIN on the main pulmonary artery. Images are formatted in multiple planes using 2-D multiplanar and 3-D maximum intensity projection. 75 cc of Isovue 300 was administered i ntravenously. Weight-based protocol using automatic tube modulation was used to optimize exposure parameters. CTDIvol Body: 8.37 mGy, DLP Body: 535 mGy*cm. COMPARISONS: 06/02/2024 ANGIOGRAPHIC FINDINGS: Evaluation is mildly limited by motion artifact. No pulmonary embolism to the subsegmental level. Normal caliber pulmonary arteries. No acute aortic abnormality seen on this study performed without cardiac gating. NON-ANGIOGRAPHIC FINDINGS: Rag Room Supervisor View Findings, Lines and Tubes: None. Trachea and Airways: Patent without evidence of tracheal or endobronchial lesion. Lungs and Pleura: Bilateral moderate pleural effusions, with mild adjacent atelectasis and interstitial edema increased basilar lungs. No pneumothorax. Minimal emphysema. Small focus of ground glass opacity in the right apex measuring 2.3 x 1.4 x 2.5 cm (image 21, series 405). Mediastinum and amy: No mass or hematoma. No mediastinal or hilar lymphadenopathy. Esophagus is patulous. Partially imaged thyroid is unremarkable. Heart: Heart is normal in size. No pericardial effusion. Moderate coronary artery calcification. Chest Wall Soft Tissues: Unremarkable. Diaphragm and upper abdomen: Irregular contour of the liver surface, suggestive of cirrhotic changes. Bones: No acute abnormality. Mild degenerative change of the visualized spine. IMPRESSION: No evidence of pulmonary embolism. Bilateral moderate pleural effusions and mild interstitial edema. Small focus of groundglass opacity in the right apex measuring up to 2.5 cm, may represent early infectious process or atelectasis. CT at 6-12 months to confirm persistence, then CT every 2 years until 5 years follow-up per Guidelines for Management of Incidental Pulmonary Nodules Detected on CT Images: From the Fleischner Society 2017. I have personally reviewed the images and I agree with this report. WSN: [id number] Ordering Physician: Sandra Swartz Dictated By: Miranda Elias DO Dictated Date/Time: 08/02/24 6:42 pm Reviewed By: Brittny Rollins MD Signed By: Brittny Rollins MD Signed Date/Time: 08/02/24 6:47 pm Transcribed By: CONCHIS Transcribed Date/Time: 08/02/24 6:21 pm * Exam Date Time Procedure Performing Provider Status 08/02/24 2:58 PM Chest Portable Yuli Jones; Auth (V erified) Notes: (Chest Portable) Reason For Exam: Shortness of Breath RESULT: Chest Portable Examination: Portable chest performed on 08/02/2024. History: Shortness of breath Findings: A frontal view of the chest is submitted without comparison. The cardiac silhouette is within normal limits for size. Pulmonary edema and pleural effusions are seen. Right humeral head tendon anchors are noted. IMPRESSION: Interstitial pulmonary edema and pleural effusions. WSN: [id number] Ordering Physician: Sandra Swartz Dictated By: Sylvie Oden MD Dictated Date/Time: 08/02/24 3:06 pm Reviewed By: Sylvie Oden MD Signed By: Sylvie Oden MD Signed Date/Time: 08/02/24 3:06 pm Transcribed By: CONCHIS Transcribed Date/Time: 08/02/24 3:05 pm Vital Signs Most recent to oldest [Reference Range]: 1 2 3 4 Height 168 cm (08/06/24 10:44 AM) 168 cm (08/06/24 7:45 AM) 168 cm (08/05/24 10:52 PM) Weight 74.1 kg (08/05/24 2:37 PM) 74.1 kg (08/05/24 6:44 AM) 74.2 kg (08/05/24 6:22 AM) Oxygen Saturation [94-100 %] 97 % (08/06/24 10:44 AM) 98 % (08/06/24 7:45 AM) 100 % (08/05/24 10:52 PM) Pulse Rate [55-90 bpm] 79 bpm (08/06/24 11:24 AM) 79 bpm (08/06/24 10:44 AM) 71 bpm (08/06/24 7:45 AM) Body Mass Index [18.5-24.99 kg/m2] 26.25 kg/m2 *H* (08/05/24 2:37 PM) 26.29 kg/m2 *H* (08/05/24 6:22 AM) 27.71 kg/m2 *H* (08/02/24 10:48 PM) Blood Pressure [90-138/55-84 mm Hg] 130/87mm Hg (08/06/24 11:24 AM) 130/87mm Hg (08/06/24 11:22 AM) 130/68mm Hg (08/06/24 11:22 AM) Respiratory Rate [16-30 br/min] 18 br/min (08/06/24 11:24 AM) 18 br/min (08/06/24 10:44 AM) 20 br/min (08/06/24 7:45 AM) Temperature [96.8-100.4 DegF] 98.7 DegF (08/06/24 10:44 AM) 98.2 DegF (08/06/24 7:45 AM) 98.4 DegF (08/05/24 10:52 PM) Liters per Minute 2 L/min (08/06/24 7:45 AM) 2 L/min (08/05/24 10:52 PM) 2 L/min (08/05/24 10:00 PM) 2 L/min (08/05/24 10:00 PM) Mode of Delivery (Oxygen) Room air (08/06/24 10:44 AM) Nasal cannula (08/06/24 7:45 AM) Nasal cannula (08/05/24 10:52 PM) Blood pressure sites Arm, right (08/06/24 10:44 AM) Arm, right (08/06/24 7:45 AM) Arm, right (08/05/24 10:52 PM) Temperature Route Oral (08/06/24 10:44 AM) Oral (08/06/24 7:45 AM) Oral (08/05/24 10:52 PM) Dry Weight 78.5 kg (08/02/24 10:48 PM) 66 kg (08/02/24 2:43 PM) Weight Obtained Via Bed scale (08/05/24 6:22 AM) Dry Weight Obtained Via Patient/family stated (08/02/24 2:43 PM) Social History Social History Type Response Smoking Status Former smoker, quit more than 30 days ago entered on: 07/21/24 Sex Sex Representation Female (finding) Admission evaluation note * Ricky Elliott DO: MODIFY, MODIFY, MODIFY, MODIFY, MODIFY, MODIFY, PERFORM, MODIFY, MODIFY, MODIFY, MODIFY Event Display: Admission Note Authored Date: Patient: ??POLI FARZANA ? Age:??69 Years?Sex:??Female?:??1955?? Chief Complaint/Reason for Consultation see stella one sheet History of Present Illness This is a 69-year-old female with a past medical history hypertension, CKD, renal artery stenosis carotid artery stenosis status post right carotid endarterectomy on 07/30/2024, and history of DVT not on anticoagulation pending aortobifemoral bypass presented with shortness of breath. ?? Per ED documentation patient developed shortness of breath yesterday evening which progressively worsened and was found to be hypoxic to the 80s by EMS.?? She was placed on 15 L nonrebreather with improvement in saturation.?? The patient reported trying home albuterol without improvement denied anychest pain fevers or upper respiratory symptoms. ?? Upon arrival to ED patient was placed on CPAP 40% FiO2 with oxygen saturation 98%.?? Patient was hypertensive with blood pressure 212/86 otherwise heart rate 76, respiratory rate 22 and afebrile with??temperature 98.5 F.?? Lab work without leukocytosis Hgb 9.5, platelet 114.?? Creatinine 1.11.?? Nosignificant electrolyte abnormality.?? proBNP 11,037, troponin flat at 11 and 10 respectively.?? Influenza A, B, RSV and COVID-19 were negative by PCR.?? D-dimer elevated at 2.23.?? Chest x-ray showed interstitial pulmonary edema and pleural effusions.?? CT angio of the chest showed no evidence of pulmonary embolism.?? Bilateral moderate pleural effusions and mild interstitial edema.?? Patient was continued on CPAP, and sublingual nitroglycerin followed by nitroglycerin drip and given 20 mg IV Lasix.?? Patient was admitted to general medicine for flash pulmonary edema. ?? Upon my evaluation patient resting in bed wearing CPAP. This is first time needing CPAP. Tells me breathing started getting worse yesterday, tried home nebulizer without improvement. Has been taking blood pressure medications as prescribed. Home alkisen recently increased to 300 mg daily. Tells me she stopped smoking a year ago, has a beer occasionally. Denies other drug use. Patient is full code. 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 No other specific questions or health concerns at this time.?? Review of Systems A full review of systems was completed and is otherwise negative except as mentioned in history of present illness. Objective Measurements?? Height: 168 cm (08/02/24) Dry Weight: 66 kg (08/02/24) ? Vital Signs?? Temperature: 98.5 DegF (08/02/24 14:43:00) Temperature Route: Axillary (08/02/24 14:43:00) Pulse Rate: 89 bpm (08/02/24 19:27:00) Heart Rate Monitored: 90 bpm (08/02/24 14:36:00) Respiratory Rate: 16 br/min (08/02/24 19:27:00) Vented: No (08/02/24 16:48:00) Systolic Blood Pressure:??163 mm Hg??High (08/02/24 19:27:00) Diastolic Blood Pressure: 82 mm Hg (08/02/24 19:27:00) Blood pressure sites: Arm, left (08/02/24 19:27:00) Mean Arterial Pressure: 116 mm Hg (08/02/24 14:43:00) Pulse Pressure: 81 mm Hg (08/02/24 19:27:00) Oxygen Saturation: 99 % (08/02/24 19:27:00) Mode of Delivery (Oxygen): CPAP (08/02/24 19:27:00) FiO2: 40 % (08/02/24 19:27:00) ?? Physical Exam Constitutional: Alert, in no distress, appears stated age, wearing CPAP Mental Status: Oriented to person, place and time. Head: Normocephalic. Eyes: Pupils are equal, round and reactive to light. Extraocular muscles intact. Ear, Nose and Throat: Oropharynx clear, mucous membranes moist. Ears and nose without masses, lesions or deformities. Trachea midline. Neck: Supple, Full range of motion. Respiratory: Crackles in bases bilaterally. Clear to auscultation in upper angel. Cardiovascular: S1 S2 regular. No murmurs, rubs or gallops. Gastrointestinal: Abdomen soft, non-tender, non-distended. Neurologic: No focal neurological deficits. Moves all extremities spontaneously. Skin: No rashes or lesions. No petechiae or purpura.?? Musculoskeletal: No cyanosis or clubbing. No gross deformities. Normal range of motion. Psychiatric: Normal mood and affect Assessment/Plan Assessment:??This is a 69-year-old female with a past medical history hypertension, CKD, renal artery stenosis carotid artery stenosis status post right carotid endarterectomy on 07/30/2024, and history of DVT not on anticoagulation pending aortobifemoral bypass presented with shortness of breath. ?? Hypertensive emergency (I16.1) Pulmonary edema (J81.1) Flash pulmonary edema (J81.0) Recent Echo with LVEF 50% grade II diastolic dysfunction, mild mitral regurg, moderate tricuspid valve regurg??. Presented with shortness of breath beginning day prior to admission. BP 212/ 86 on admission and CXR with pulmonary edema. CTA w/o evidence of PE. Patient reports feels improvedsince being on CPAP, Lasix and nitro gtt.? Wean CPAP?? Wean nitro gtt Monitor response to Lasix and will give additional dose as needed Increased home hydralazine to 100??mg TID Continue home amlodipine 10 mg daily Continue clonidine 0.2 mg twice daily Changed??home atenolol 50 to carvedilol??12.5 mg BID Aliskiren 300 mg daily not on formulary - discussed with??daughter who will bring him home in AM ?? CKD (chronic kidney disease) (N18.9):?? Creatinine appears??close??to??baseline 1.1. Has conservation biology professor outpatient. ?? Daily lytes and creatinine while diuresing? COPD without exacerbation (J44.9):?? Continue budesonide BID?? Duonebs??prn ?? History of deep vein thrombosis (DVT) of lower extremity (Z86.718):?? Reports DVT 4 years ago, xarelto??on hold recently pending vascular surgeries. CTA w/o evidence of PE? Continue to hold xarelto for now? Carotid stenosis (I65.29):??Continue aspirin??81 mg daily and??rosuvastatin 10 mg daily Followup with vascular surgery on dc? Depression (F32.A):??Continue home sertraline 100 mg daily Continue home bupropion ?? Hypothyroidism (E03.9):??Continue home levothyroxine ?? Ground glass opacity present on imaging of lung (R91.8):??Small focus of groundglass opacity in theright apex measuring up to 2.5 cm, may represent early infectious process or atelectasis. CT at 6-12 months to confirm persistence, then CT every 2 years until 5 years follow-up per Guidelines for Management of Incidental Pulmonary Nodules Detected on CT Images: From the Fleischner Society 2017. ?? VTE Prophylaxis:??SCD's ?VTE Prophylaxis Assessment:??Risk Level documented as Low Risk ?? Code Status:??Full - discussed on admission ?Order Code Status:??Code Status Ordered ?? This note was created using Unbabel speech recognition software, there may be unwanted word substitution, typographical errors or grammatical error, an attempt at proofreading has been made to minimize errors. please call if there are any questions regarding plan of care. ?? I spent a total of 75 minutes today reviewing the chart / medical records, evaluating the patient, evaluating and interpreting laboratory and imaging data, formulating and discussing the treatmentplan, and documenting the encounter Histories Allergies Allergies ?(Active and Proposed Allergies Only) codeine? (Severity: Unknown severity, Onset: Unknown) ?Reactions: GI upset ?? Past Medical History/Problem List Active Problems(4) Carotid stenosis CKD (chronic kidney disease) Claudication of lower extremity Renal artery stenosis ?? Past Surgical History Endarterectomy Carotid, Right: 07/30/24 ?? Social History Tobacco Details:??Use: Former smoker, quit more than 30 days ago. ? Family History No Family History documented. Medications Home Medications Acetaminophen (Tylenol 325 mg oral tablet)??975 Milligram By Mouth Every 6 hours as needed Pain , Mild Albuterol (Albuterol (Eqv-ProAir HFA) 90 mcg/inh inhalation aerosol)??8 Gm, 0 Refill(s), INHALE 2 PUFFS BY MOUTH EVERY 4 TO 6 HOURS NEEDED FOR WHEEZING Albuterol/Ipratropium (albuterol-ipratropium 3 mg-0.5 mg/3 ml inhalation solution)??3 Milliliter Neb 2 times a day aliskiren (aliskiren 300 mg oral tablet)??1 tab(s) 300 Milligram By Mouth Daily Amlodipine (amLODIPine 10 mg oral tablet)??1 tab(s) 10 Milligram By Mouth Daily Aspirin (aspirin 81 mg oral capsule)??1 capsule 81 Milligram By Mouth Every 24 hours Atenolol (atenolol 50 mg oral tablet)??50 Milligram 1 tablet By Mouth 2 times a day Budesonide (budesonide 0.25 mg/2 mL inhalation suspension)??0.25 Milligram 2 times a day BuPROpion (buPROPion 200 mg/12 hours (SR) oral tablet, extended release)??1 tab(s) 200 Milligram ByMouth Daily in AM Clonidine (cloNIDine 0.2 mg oral tablet)??0.2 Milligram 1 tablet By Mouth 2 times a day Docusate (docusate sodium 100 mg oral capsule)??1 capsule 100 Milligram By Mouth 2 times a day Gabapentin (gabapentin 600 mg oral tablet)??2 tab(s) 1,200 Milligram By Mouth Daily at bedtime hydrALAZINE (hydrALAZINE 50 mg oral tablet)??By Mouth 3 times a day Levothyroxine (levothyroxine 75 mcg (0.075 mg) oral tablet)??1 tab(s) 75 Microgram By Mouth Daily Lorazepam (LORazepam 0.5 mg oral tablet)??1 tab(s) 0.5 Milligram By Mouth Daily at bedtime as needed as needed for anxiety Omeprazole (omeprazole 20 mg oral enteric coated capsule)??1 capsule 20 Milligram By Mouth 2 times a day Oxycodone (oxyCODONE 5 mg oral tablet)??5 Milligram By Mouth Every 4 hours as needed for 3 Days Pain , Severe Rosuvastatin (rosuvastatin 10 mg oral tablet)??1 tab(s) 10 Milligram By Mouth Daily Sertraline (sertraline 100 mg oral tablet)??1 tab(s) 100 Milligram By Mouth Daily ? Results Recent Labs BLOOD COUNT & DIFF WBC 8.6 k/mm3 ()?? 08/02/2024 14:44 RBC 2.82 m/mm3 (Low)?? 08/02/2024 14:44 Hgb 9.5 Gm/dL (Low)?? 08/02/2024 14:44 Hct 29.8 % (Low)?? 08/02/2024 14:44 MCV 105.7 femtoliters (High)?? 08/02/2024 14:44 MCH 33.7 pg ()?? 08/02/2024 14:44 MCHC 31.9 Gm/dL (Low)?? 08/02/2024 14:44 Platelet Count 114 k/mm3 (Low)?? 08/02/2024 14:44 RDW-SD 63.8 femtoliters (High)?? 08/02/2024 14:44 MPV 10.6 femtoliters ()?? 08/02/2024 14:44 Nucleated RBC (Automated) 0.0 #/100 WBC'S ()?? 08/02/2024 14:44 Abs. NRBC 0.0 k/mm3 ()?? 08/02/2024 14:44 Abs. Neut 7.0 k/mm3 ()?? 08/02/2024 14:44 Abs. Lymph 0.6 k/mm3 (Low)?? 08/02/2024 14:44 Abs. [place] 0.7 k/mm3 ()?? 08/02/2024 14:44 Abs. Eo 0.2 k/mm3 ()?? 08/02/2024 14:44 Abs. Baso 0.0 k/mm3 ()?? 08/02/2024 14:44 Neut % 81.5 % (High)?? 08/02/2024 14:44 Lymph % 6.9 % (Low)?? 08/02/2024 14:44 [place] % 7.6 % ()?? 08/02/2024 14:44 Eos % 2.5 % ()?? 08/02/2024 14:44 Baso % 0.3 % ()?? 08/02/2024 14:44 Imm Gran 1.2 % ()?? 08/02/2024 14:44 Abs. Imm Gran 0.1 k/mm3 ()?? 08/02/2024 14:44 ?? CARDIAC Nt-Probnp 73285 pg/mL (High)?? 08/02/2024 14:45 High Sensitivity Troponin (HSTnT) 10 ng/L ()?? 08/02/2024 18:57 ?? CHEM GENERAL Sodium 139 mmol/L ()?? 08/02/2024 14:45 Potassium 4.6 mmol/L ()?? 08/02/2024 14:45 Chloride 105 mmol/L ()?? 08/02/2024 14:45 Bicarbonate Level 20 mmol/L (Low)?? 08/02/2024 14:45 Anion Gap 14 mmol/L ()?? 08/02/2024 14:45 Glucose Level 116 mg/dL (High)?? 08/02/2024 14:45 Glucose, POC 105 mg/dL (High)?? 08/02/2024 14:27 BUN 22 mg/dL ()?? 08/02/2024 14:45 Creatinine-Blood 1.11 mg/dL (High)?? 08/02/2024 14:45 Estimated GFR Creatinine 54 ML/MIN/1.73 M2 ()?? 08/02/2024 14:45 Calcium 8.8 mg/dL ()?? 08/02/2024 14:45 Protein, Total 7.5 Gm/dL ()?? 08/02/2024 14:45 Albumin 4.1 Gm/dL ()?? 08/02/2024 14:45 AG Ratio 1.2 ()?? 08/02/2024 14:45 Alkaline Phosphatase 100 units/L ()?? 08/02/2024 14:45 AST (SGOT) 26 units/L ()?? 08/02/2024 14:45 ALT (SGPT) 11 units/L ()?? 08/02/2024 14:45 Bilirubin, Total 0.8 mg/dL ()?? 08/02/2024 14:45 ?? COAG D-Dimer 2.23 mg/L FEU (High)?? 08/02/2024 14:44 ?? URINE OTHER Est Creatinine Clearance 46.29 mL/min ()?? 08/02/2024 15:26 ?? VIROLOGY Influenza A PCR NEGATIVE ()?? 08/02/2024 14:27 Influenza B PCR NEGATIVE ()?? 08/02/2024 14:27 RSV PCR NEGATIVE ()?? 08/02/2024 14:27 COVID-19 PCR Specimen Source NASAL ()?? 08/02/2024 14:27 COVID-19 PCR Result NEGATIVE ()?? 08/02/2024 14:27 ? * Ricky Elliott DO: PERFORM Event Display: Admission Note Authored Date: BP to 193/67 this AM on nitro gtt, increased carvedilol to 25 mg BID, ordered 20 mg IV lasix, repleted mg. [facility] (Patient tells me sees Dr. Spencer outpatient) EKG study * Event Display: ECG 12-Lead Authored Date: Please click on pdf link to open report * Event Display: ECG 12-Lead Authored Date: Ventricular Rate: 71 BPM Atrial Rate: 71 BPM P-R Interval: 142 ms QRS Duration: 86 ms Q-T Interval: 426 ms QTC Calculation(Bazett): 462 ms P [place]: 11 degrees R [place]: 41 degrees T Morral: 50 degrees Normal sinus rhythm Normal ECG When compared with ECG of 02-Aug-2024 14:33, Nonspecific T wave abnormality now evident in Anterior leads Confirmed by LORENZO BARTHOLOMEW MD ([id number]) on 08/05/2024 5:38:32 PM [place]: LORENZO BARTHOLOMEW MD * Event Display: ECG 12-Lead Authored Date: Please click on pdf link to open report * Event Display: ECG 12-Lead Authored Date: Ventricular Rate: 89 BPM Atrial Rate: 89 BPM P-R Interval: 154 ms QRS Duration: 86 ms Q-T Interval: 384 ms QTC Calculation(Bazett): 467 ms P Morral: 70 degrees R Morral: 78 degrees T Morral: 38 degrees Normal sinus rhythm Normal ECG When compared with ECG of 31-Jul-2024 10:15, No significant change was found Confirmed by MAHENDRA MILLER MD ([id number]) on 08/03/2024 9:14:55 AM [place]: MAHENDRA MILLER MD Cardiology * Event Display: Cardiac Rhythm Strips Authored Date: * Event Display: Cardiac Rhythm Strips Authored Date: Hospital Progress note * Betty Moncada NP: MODIFY, PERFORM, MODIFY Event Display: Progress Note Hospital Authored Date: [id number] Patient: ??FARZANA HAMM ? Age:??69 Years?Sex:??Female?:??1955?? Subjective Patient evaluated at the bedside this morning on rounds on S1. No acute events overnight.?? Patientstates she has been having sudden shortness of breath at home prior to admission not resolved with her inhalers.?? Patient is now s/p angiogram Mesenteric with Intervention, Angiogram Renal Artery with Intervention, Left??left radial access??with??angioplasty and stenting of the superior mesentericartery expandable covered stent.?? Right renal artery balloon expandable covered stent by Dr Gill. Patient tolerating diet well without nausea nor vomiting.?? Patient denies abdominal pain, fever, chills, chest pain,??palpations nor any other symptoms. ?? Review of Systems Remainder of ROS is negative except as per HPI Physical Exam Vitals & Measurements T:??98.7?F?? HR:??79??(Peripheral)?? RR:??18?? BP:??130/87?? SpO2:??97%?? HT:??168??cm?? WT:??74.1??kg?? BMI:??26.25?? General appearance: No apparent distress, appears stated age, well nourished Head: Normocephalic, atraumatic. Cardiac: RRR Respiratory: Normal work of breathing, clear, on 2L nasal cannula Abdomen: Soft, nontender, nondistended.?? Incisions/Dressings: Right carotid incision healed, well approximated without periwound erythema, from previous Right CEA 07/30. ?? Left wrist puncture site with old sang drainage, mild ecchymosis, no hematoma. Neurologic status: Intact with no deficits. Vascular:??Left radial pulse palpable Assessment/Plan Farzana Hamm 69F??PMH: HTN, CKD, renal artery stenosis, R??carotid artery stenosis s/p right CEA on 07/30/[address] 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 Vascular surgery was consulted for??recommendations??regarding??treatment options for??her renal artery stenosis.?? Patient is now s/p angiogram Mesenteric with Intervention, Angiogram Renal Artery with Intervention, Left??left radial access??with??angioplasty and stenting of the superior mesenteric artery expandable covered stent.?? Right renal artery balloon expandable covered stent by Dr Gill. Patient tolerated the procedure well without complications.?? Blood pressurewell controlled this AM ?? Recommendations: ?? Continue Aspirin 81mg daily Continue Plavix 75mg daily X90 days Patient maybe discharged from Vascular perspective Patient will follow up in [address] Gill, message sent to medical scheduler Primary team made aware plan Remainder of care per primary Vascular surgery signing off with above plan/recommendations ?? Plan discussed with Dr. Gill Page [facility] [place] [phone]. Intake and Output Intake and Output Results?? This visit (24 hour periods starting at 07:00 EST)? 08/06/24 *?? 08/05/24?? 08/04/24?? Total Summary?Intake mL?? --?? 820?? 840?Output mL?? --?? 1,200?? 900?Fluid Balance ?? --?? -380?? -60?? Intake (2)?Acetaminophen mL?? --?? 100?? --?Oral Fluids mL?? --?? 720?? 840?Total?? --?? 820?? 840?? Output (1)?Urine Voided mL?? --?? 1,200?? 900?Total?? --?? 1,200?? 900?? Counts (3)?Oral Fluids mL?? --?? 720?? 840?Urine Count ?? --?? 2?? 3?Urine Voided mL?? --?? 1,200?? 900? * This column has not completed the indicated time period.?? Labs Last 24 Hours BLOOD COUNT & DIFF ? Event Name?? Event Result?? Date/Time?? WBC 3.6 k/mm3??Low 08/06/24 00:08:00 RBC 2.86 m/mm3??Low 08/06/24 00:08:00 Hgb 9.4 Gm/dL??Low 08/06/24 00:08:00 Hct 29 %??Low 08/06/24 00:08:00 MCV 101.4 femtoliters??High 08/06/24 00:08:00 MCH 32.9 pg 08/06/24 00:08:00 MCHC 32.4 Gm/dL??Low 08/06/24 00:08:00 Platelet Count 115 k/mm3??Low 08/06/24 00:08:00 MPV 10.3 femtoliters 08/06/24 00:08:00 Nucleated RBC (Automated) 0 #/100 WBC'S 08/06/24 00:08:00 ? CHEM GENERAL ? Event Name?? Event Result?? Date/Time?? Sodium 138 mmol/L 08/06/24 00:08:00 Chloride 100 mmol/L 08/06/24 00:08:00 Bicarbonate Level 25 mmol/L 08/06/24 00:08:00 Anion Gap 13 mmol/L 08/06/24 00:08:00 Glucose Level 170 mg/dL??High 08/06/24 00:08:00 BUN 18 mg/dL 08/06/24 00:08:00 Creatinine-Blood 1.05 mg/dL??High 08/06/24 00:08:00 Phosphorus 2.6 mg/dL 08/06/24 00:08:00 Magnesium 1.5 mg/dL??Low 08/06/24 00:08:00 ? * David Ramirez: PERFORM Event Display: Progress Note Hospital Authored Date: [id number] Patient: ??FARZANA HAMM ? Age:??69 Years?Sex:??Female?:??1955?? Subjective No overnight events or acute complaints s/p stenting of SMA and right renal artery yesterday BP now better controlled and Cr back to baseline Plan for possible discharge today Review of Systems Negative unless otherwise mentioned above?? Objective Measurements?? Height: 168 cm (08/06/24) Weight: 74.1 kg (08/05/24) Dry Weight: 78.5 kg (08/02/24) Body Mass Index:??26.25 kg/m2??High (08/05/24) ? Vital Signs?? Temperature: 98.2 DegF (08/06/24 07:45:00) Temperature Route: Oral (08/06/24 07:45:00) Normothermic Measures: Warming blanket (08/05/24 18:00:00) Pulse Rate: 71 bpm (08/06/24 07:45:00) Heart Rate Monitored: 73 bpm (08/05/24 22:00:04) Respiratory Rate: 20 br/min (08/06/24 07:45:00) Vented: No (08/05/24 20:00:00) Systolic Blood Pressure:??140 mm Hg??High (08/06/24 07:45:00) Diastolic Blood Pressure: 59 mm Hg (08/06/24 07:45:00) Blood pressure sites: Arm, right (08/06/24 07:45:00) Mean Arterial Pressure: 86 mm Hg (08/06/24 07:45:00) Pulse Pressure: 81 mm Hg (08/06/24 07:45:00) Oxygen Saturation: 98 % (08/06/24 07:45:00) Liters per Minute: 2 L/min (08/06/24 07:45:00) Mode of Delivery (Oxygen): Nasal cannula (08/06/24 07:45:00) Early Warning Score: 6 (08/06/24 07:46:17) ? Intake/Output? 08/02 20:14 08/06 07:00 08/05 07:00 08/04 07:00 08/03 07:00 ?? 08/06 10:46 08/06 10:46 08/06 06:59 08/05 06:59 08/04 06:59 Intake ? 2000 ?0 ?820 ?840 ? 11.7 Output ? 3250 ?0 ? 1200 ?900 ?850 Net Total ?-1250 ?0 ? -380 ?-60 ? -838.3 ? Urine Count ?7 ?0 ?2 ?3 ?2 ? Physical Exam ?General: No acute distress ?HEENT: Mucous membranes moist ?CV: Regular rate and rhythm ?Respiratory: CTAB ?Abdominal: Soft ?Extremities: No peripheral edema ?Neuro: AAO x3 ?Skin: No rashes _ Inpatient Medications Medications (35) Active SCHEDULED: (16) Acetaminophen 325 mg Tablet (Acetaminophen Tablet) ??975 mg, By Mouth, Every 6 hours Aspirin 81 mg EC Tablet (Aspirin Tablet) ??81 mg, By Mouth, Daily Budesonide 0.25 mg/2 mL Inhalation Susp (Pulmicort Inhalation Suspension) ??0.25 mg 2 mL, BAND Nebulizer, 2 times a day BuPROPion 100 mg SR Tablet (BuPROpion SR Tablet) ??200 mg, By Mouth, Daily in AM Carvedilol 25 mg Tablet (carvedilol 12.5 mg oral tablet) ??25 mg, By Mouth, 2 times a day Clonidine 0.1 mg Tablet (cloNIDine 0.1 mg oral tablet) ??0.2 mg, By Mouth, 2 times a day Clopidogrel 75 mg Tablet (Plavix 75 mg oral tablet) ??75 mg, By Mouth, Daily Gabapentin 300 mg Capsule (gabapentin 300 mg oral capsule) ??600 mg, By Mouth, 2 times a day hydrALAZINE 25 mg Tablet (hydrALAZINE 25 mg oral tablet) ??100 mg, By Mouth, 3 times a day Isosorbide Mononitrate 30 mg ER Tablet (Imdur 30 mg oral tablet, extended release) ??30 mg, By Mouth, Daily Levothyroxine 75 mcg Tablet (levothyroxine 0.075 mg oral tablet) ??75 mcg, By Mouth, Daily NaCl 0.9% Flush 3ml (NaCL 0.9% Flush) ??3 mL, IV Push, Every 8 hours NIFEdipine 60 mg ER Tablet (NIFEdipine 60 mg oral tablet, extended release) ??60 mg, By Mouth, Daily Pantoprazole 20 mg EC Tablet (pantoprazole 20 mg oral delayed release tablet) ??20 mg, By Mouth, 2 times a day Rosuvastatin 5 mg Tablet (rosuvastatin 5 mg oral tablet) ??10 mg, By Mouth, Daily Sertraline 50 mg Tablet (sertraline 50 mg oral tablet) ??100 mg, By Mouth, Daily CONTINUOUS: (0) PRN: (19) Albuterol/Ipratropium Inhalation Joaquina 3mL (Duoneb Inhalation Solution) ??1 vials, BAND Nebulizer, Every 4 hours Calcium Carbonate 500 mg (Calcium 200 mg) Chewable Tablet (Tums 500 mg oral tablet, chewable) ??500mg 1 tablet, Chew, Every 4 hours Dextromethorphan-Guaifenesin 20 mg-200 mg/10 mL Liqu UD (Robitussin DM Liquid) ??10 mL, By Mouth, Every 4 hours Docusate Sodium 100 mg Capsule (Docusate Sodium Capsule) ??100 mg 1 capsule, By Mouth, 2 times a day FENTanyl 50 mcg/mL Inj (2 mL) (Fentanyl Inj (PACU ONLY)) ??25 mcg 0.5 mL, IV Push Slowly, Every 5 minutes Haloperidol Lactate 5 mg/mL Inj (1 mL) (Haloperidol LACTATE Inj (PACU ONLY)) ??1 mg 0.2 mL, IV Push, Once HYDROmorphone 0.5 mg/0.5 mL Inj Syringe (HYDROmorphone Inj (PACU ONLY)) ??0.5 mg 0.5 mL, IV Push Slowly, Every 10 minutes Lorazepam 0.5 mg Tablet (LORazepam 0.5 mg oral tablet) ??0.5 mg, By Mouth, 3 times a day Melatonin 3 mg Tablet (Melatonin Tablet) ??3 mg, By Mouth, Daily at bedtime NaCl 0.9% Flush 3ml (NaCL 0.9% Flush) ??3 mL, IV Push, Every 8 hours nalOXONE ??400mcg/mL Inj (nalOXONE Inj) ??0.04 mg 0.1 mL, IV Push, Every 5 minutes Ondansetron 2mg/mL Inj (2mL Vial) (Zofran Inj) ??4 mg, IV Push, Every 4 hours OxyCODONE 5 mg IR Tablet (Oxycodone 5mg Oral Tablet (PACU ONLY)) ??5 mg, By Mouth, Once OxyCODONE 5 mg IR Tablet (oxyCODONE 5 mg oral tablet) ??5 mg, By Mouth, Every 4 hours Polyethylene Glycol 17 Gm Powder (MiraLax Powder) ??17 Gm 1 pack/packet, By Mouth, Daily Polyvinyl Alcohol 1.4% Opthalmic Solution/Artificial Tears (Artificial Tears1.4%) ??2 drops, Eyes, Both, Every 4 hours Senna Tablet ??8.6 mg 1 tablet, By Mouth, 2 times a day Simethicone 80 mg Chewable Tablet (Simethicone Tablet) ??80 mg, Chew, 3 times a day Tetracaine 0.5% Ophthalmic Solution (Tetracaine 0.5% Ophth) ??1 drops, Eye, Right, 3 times a day ? Results Recent Labs BLOOD BANK Blood Type B Negative ()?? 08/04/2024 10:37 Antibody Screen Negative ()?? 08/04/2024 10:37 ?? BLOOD COUNT & DIFF WBC 3.6 k/mm3 (Low)?? 08/06/2024 00:08 RBC 2.86 m/mm3 (Low)?? 08/06/2024 00:08 Hgb 9.4 Gm/dL (Low)?? 08/06/2024 00:08 Hct 29.0 % (Low)?? 08/06/2024 00:08 MCV 101.4 femtoliters (High)?? 08/06/2024 00:08 MCH 32.9 pg ()?? 08/06/2024 00:08 MCHC 32.4 Gm/dL (Low)?? 08/06/2024 00:08 Platelet Count 115 k/mm3 (Low)?? 08/06/2024 00:08 RDW-SD 57.8 femtoliters (High)?? 08/06/2024 00:08 MPV 10.3 femtoliters ()?? 08/06/2024 00:08 Nucleated RBC (Automated) 0.0 #/100 WBC'S ()?? 08/06/2024 00:08 Abs. NRBC 0.0 k/mm3 ()?? 08/06/2024 00:08 Abs. Neut 3.0 k/mm3 ()?? 08/05/2024 00:33 Abs. Lymph 1.0 k/mm3 ()?? 08/05/2024 00:33 Abs. [place] 0.7 k/mm3 ()?? 08/05/2024 00:33 Abs. Eo 0.2 k/mm3 ()?? 08/05/2024 00:33 Abs. Baso 0.0 k/mm3 ()?? 08/05/2024 00:33 Neut % 61.0 % ()?? 08/05/2024 00:33 Lymph % 19.6 % ()?? 08/05/2024 00:33 [place] % 13.5 % (High)?? 08/05/2024 00:33 Eos % 4.5 % ()?? 08/05/2024 00:33 Baso % 0.8 % ()?? 08/05/2024 00:33 Peripheral Blood Smear Review Interp. Reviewed by pathologist. ()?? 08/05/2024 00:33 Imm Gran 0.6 % ()?? 08/05/2024 00:33 Abs. Imm Gran 0.0 k/mm3 ()?? 08/05/2024 00:33 Citrated Platelet Count 106 k/mm3 (Low)?? 08/06/2024 00:08 ?? CARDIAC High Sensitivity Troponin (HSTnT) 10 ng/L ()?? 08/05/2024 10:31 ?? CHEM GENERAL Sodium 138 mmol/L ()?? 08/06/2024 00:08 Potassium 3.6 mmol/L ()?? 08/06/2024 00:08 Chloride 100 mmol/L ()?? 08/06/2024 00:08 Bicarbonate Level 25 mmol/L ()?? 08/06/2024 00:08 Anion Gap 13 mmol/L ()?? 08/06/2024 00:08 Glucose Level 170 mg/dL (High)?? 08/06/2024 00:08 BUN 18 mg/dL ()?? 08/06/2024 00:08 Creatinine-Blood 1.05 mg/dL (High)?? 08/06/2024 00:08 Estimated GFR Creatinine 58 ML/MIN/1.73 M2 ()?? 08/06/2024 00:08 Calcium 8.7 mg/dL ()?? 08/06/2024 00:08 Calcium, Ionized pH Corrected 1.20 mmol/L ()?? 08/05/2024 00:33 Phosphorus 2.6 mg/dL ()?? 08/06/2024 00:08 Magnesium 1.5 mg/dL (Low)?? 08/06/2024 00:08 Vitamin B12 Level 931 pg/mL ()?? 08/05/2024 10:31 Folic Acid Level 10.2 ng/mL ()?? 08/06/2024 00:08 Lactate 0.6 mmol/L ()?? 08/05/2024 10:31 ?? COAG INR 1.1 ()?? 08/05/2024 00:33 Protime (PT) 11.4 seconds ()?? 08/05/2024 00:33 POC ACT-LR 267.0 seconds ()?? 08/05/2024 17:32 ?? URINE OTHER Est Creatinine Clearance 48.94 mL/min ()?? 08/06/2024 01:38 ? Assessment/Plan Assessment:??Farzana Hamm is a 69-year-old female with??past medical history of hypertension, CKD, renal artery stenosis, carotid artery stenosis status post right carotid endarterectomy on 07/30/2024, and history of DVT not on anticoagulation pending aortobifemoral bypass who presented on 08/02 withshortness of breath. 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 ?? 1. 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 2. NATALIE on CKD History of solitary kidney, follows with Dr. Spencer at [place] Creatinine peaked at 1.4, now back to baseline of ~ 1.1mg/dL NATALIE most likely hemodynamic in the setting of significant blood pressure changes versus FRANCISCA after contrast exposure 2 days before Cr rise ?? Plan - Ok for discharge from renal standpoint with??aliskiren 300mg daily, atenolol 50mg BID, clonidine 0.2mg daily, hydralazine 100mg TID, Imdur 30mg daily, and nifedipine 60mg daily - Outpatient follow-up with PCP on 08/20- may need less antihypertensive s/p renal artery stenting ?Will continue to follow. ?David Scott PA-C ?[facility] ?? Discussed with Dr. Prasad * Osmar ARRIOLA, Eri: PERFORM Event Display: Progress Note Hospital Authored Date: Patient and charted reviewed. Management discussed with PA. ??Continue the current management as documented in PA's chart?? * Heydi Thorne DO: PERFORM, MODIFY Event Display: Progress Note Hospital Authored Date: Patient: ??FARZANA HAMM ? Age:??69 Years?Sex:??Female?:??1955?? Subjective No acute overnight events reported. Remained NPO overnight for angiogram with possible renal artery and SMA stenting. ?? Patient examined at bedside this AM. Endorses heartburn. Typically has heartburn and takes omeprazole at home, although feels worse thanher usual episodes. Nonradiating, denies shortness of breath, diaphoresis, headache, dizziness, or weakness. EKG NSR without notable ST changes from prior. Normal troponin and lactate. Tums given with good effect. ?? Review of Systems As above Objective Vital Signs?? Temperature: 97.9 DegF (08/05/24 11:35:00) Temperature Route: Oral (08/05/24 11:35:00) Pulse Rate: 67 bpm (08/05/24 11:35:00) Respiratory Rate: 18 br/min (08/05/24 11:35:00) Vented: No (08/04/24 20:00:00) Systolic Blood Pressure:??151 mm Hg??High (08/05/24 11:35:00) Diastolic Blood Pressure: 56 mm Hg (08/05/24 11:35:00) Blood pressure sites: Arm, left (08/05/24 11:35:00) Mean Arterial Pressure: 88 mm Hg (08/05/24 11:35:00) Pulse Pressure: 95 mm Hg (08/05/24 11:35:00) Oxygen Saturation: 99 % (08/05/24 11:35:00) Liters per Minute: 2 L/min (08/05/24 11:35:00) Mode of Delivery (Oxygen): Nasal cannula (08/05/24 11:35:00) Early Warning Score: 5 (08/05/24 11:35:28) ?? Physical Exam General:??In mild distress due to heartburn, alert & oriented x3 HEENT:??Moist mucus membranes Neck:??Supple Respiratory:??Clear to auscultation bilaterally, no increased work of breathing, no wheezes/rales, on 2L NC Cardiovascular:??Normal rate, regular rhythm, no murmurs/rubs/gallops, peripheral pulses intact Abdomen:??Normal active bowel sounds, soft, non-tender, non-distended Extremities:??No edema, warm & dry Skin:??No rashes, lesions or skin breakdown Results Recent Labs BLOOD BANK Blood Type B Negative ()?? 08/04/2024 10:37 Antibody Screen Negative ()?? 08/04/2024 10:37 ?? BLOOD COUNT & DIFF WBC 4.9 k/mm3 ()?? 08/05/2024 00:33 RBC 2.59 m/mm3 (Low)?? 08/05/2024 00:33 Hgb 8.8 Gm/dL (Low)?? 08/05/2024 00:33 Hct 27.2 % (Low)?? 08/05/2024 00:33 MCV 105.0 femtoliters (High)?? 08/05/2024 00:33 MCH 34.0 pg ()?? 08/05/2024 00:33 MCHC 32.4 Gm/dL (Low)?? 08/05/2024 00:33 Platelet Count 101 k/mm3 (Low)?? 08/05/2024 00:33 RDW-SD 61.2 femtoliters (High)?? 08/05/2024 00:33 MPV 10.2 femtoliters ()?? 08/05/2024 00:33 Nucleated RBC (Automated) 0.0 #/100 WBC'S ()?? 08/05/2024 00:33 Abs. NRBC 0.0 k/mm3 ()?? 08/05/2024 00:33 Abs. Neut 3.0 k/mm3 ()?? 08/05/2024 00:33 Abs. Lymph 1.0 k/mm3 ()?? 08/05/2024 00:33 Abs. [place] 0.7 k/mm3 ()?? 08/05/2024 00:33 Abs. Eo 0.2 k/mm3 ()?? 08/05/2024 00:33 Abs. Baso 0.0 k/mm3 ()?? 08/05/2024 00:33 Neut % 61.0 % ()?? 08/05/2024 00:33 Lymph % 19.6 % ()?? 08/05/2024 00:33 [place] % 13.5 % (High)?? 08/05/2024 00:33 Eos % 4.5 % ()?? 08/05/2024 00:33 Baso % 0.8 % ()?? 08/05/2024 00:33 Imm Gran 0.6 % ()?? 08/05/2024 00:33 Abs. Imm Gran 0.0 k/mm3 ()?? 08/05/2024 00:33 ?? CARDIAC High Sensitivity Troponin (HSTnT) 10 ng/L ()?? 08/05/2024 10:31 ?? CHEM GENERAL Sodium 138 mmol/L ()?? 08/05/2024 00:33 Potassium 3.8 mmol/L ()?? 08/05/2024 00:33 Chloride 104 mmol/L ()?? 08/05/2024 00:33 Bicarbonate Level 22 mmol/L ()?? 08/05/2024 00:33 Anion Gap 12 mmol/L ()?? 08/05/2024 00:33 Glucose Level 85 mg/dL ()?? 08/05/2024 00:33 BUN 24 mg/dL (High)?? 08/05/2024 00:33 Creatinine-Blood 1.20 mg/dL (High)?? 08/05/2024 00:33 Estimated GFR Creatinine 50 ML/MIN/1.73 M2 ()?? 08/05/2024 00:33 Calcium, Ionized pH Corrected 1.20 mmol/L ()?? 08/05/2024 00:33 Phosphorus 3.5 mg/dL ()?? 08/05/2024 00:33 Magnesium 1.8 mg/dL ()?? 08/05/2024 00:33 Lactate 0.6 mmol/L ()?? 08/05/2024 10:31 ?? COAG INR 1.1 ()?? 08/05/2024 00:33 Protime (PT) 11.4 seconds ()?? 08/05/2024 00:33 ?? URINE OTHER Est Creatinine Clearance 42.82 mL/min ()?? 08/05/2024 02:14 ?? Assessment/Plan Patient is a 69-year-old female with a past medical history significant for??hypertension, CKD, renal artery stenosis, carotid artery stenosis status post right carotid endarterectomy on 07/30/2024, history of DVT not on anticoagulation pending aortobifemoral bypass, GERD, and ?hemochromatosis who??presented to ED on 08/02 with shortness of breath, and initially admitted for [facility] for hypertensive emergency on nitroglycerin gtt and acute hypoxic respiratory failure??07/26 flash pulmonary edema requiring CPAP. Patient was transferred to acute floor after being weaned off nitroglycerin gtt with ad justments to her po antihypertensives and now clinically stable on 2L NC. Course complicated by AKIon CKD, Nephrology and vascular surgery following.??Plan for angiogram with possible renal artery and SMA stenting today. ?? Hypertensive emergency (I16.1) Renal artery stenosis ??(I70.1) BP 212/ 86 on admission. Home medications: amlodipine 10mg daily, aliskiren 300mg daily, atenolol 500mg, clonidine 0.2mg daily, and hydralazine 50mg TID Patient was switched from atenolol to carvedilol on admission, her home aliskiren cannot be resumedas this interacts with carvedilol as per pharmacy. Off nitroglycerin gtt??now, blood pressure medications adjusted with increased carvedilol dose, amlodipine switched to nifedipine, max dose hydralazine, starting isosorbide. 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 ?? Plan: - NPO for angiogram with potential placement of renal artery and SMA stents - Per vascular, patient is high risk candidate??for aortic endarterectomy??and aortobifemoral bypass. Will address lower extremity symptoms and consider extra anatomical bypass at a later date - Continue with: Increased home hydralazine to 100??mg TID Continue clonidine 0.2 mg twice daily Changed??home atenolol 50 to carvedilol??25 mg BID Will continue to home hold Aliskiren 300 mg daily for now given interaction with carvedilol Continue Imur ER 30mg daily ?? Acute hypoxic respiratory failure (J96.01) Flash pulmonary edema (J81.0) Pulmonary edema (J81.1) Presented with shortness of breath beginning day prior to admission. CXR with pulmonary edema. CTA w/o evidence of PE. Recent Echo 07/08/2024 with LVEF 50% grade II diastolic dysfunction, mild mitral regurg, moderate tricuspid valve regurg??. Patient reports feels improved since being on CPAP, Lasix. Euvolemic on exam, holding off on further Lasix for now since creatinine function has risen after Lasix given on admission. ?? Plan: - Wean O2 as tolerated - Continue to hold further diuresis given NATALIE, appears euvolemic on exam ?? NATALIE (acute kidney injury) ??(N17.9) CKD (chronic kidney disease) (N18.9):?? Creatinine appears??close??to??baseline 1.1. Follows with conservation biology professor Dr. Spencer at [facility]. Creatinine uptrending, hold further diuresis for now, could be secondary to hypertensive damage vs.FRANCISCA after contrast exposure 2 days ago Nephrology following, appreciate recs below. ?? Plan: - Renal artery stenosis management as above - Hold diuresis as above - Avoid nephrotoxins including NSAIDs and further IV contrast - Monitor BUN/Cr - Monitor UOP ?? Ground glass opacity present on imaging of lung (R91.8):?? Small focus of groundglass opacity in the right apex measuring up to 2.5 cm, may represent early infectious process or atelectasis. ?? Plan: - F/u with PCP CT at 6-12 months to confirm persistence, then CT every 2 years until 5 years follow-up per Guidelines for Management of Incidental Pulmonary Nodules Detected on CT Images: From the Fleischner Society 2017. ?? Chronic conditions: - COPD without exacerbation (J44.9):??Continue budesonide BID, Duonebs??prn - History of deep vein thrombosis (DVT) of lower extremity (Z86.718):??Reports DVT 4 years ago, xarelto??on hold recently pending vascular surgeries. CTA w/o evidence of PE?? Continue to hold xarelto for now?? - Carotid stenosis (I65.29):??Continue aspirin??81 mg daily and??rosuvastatin 10 mg daily - Depression (F32.A):??Continue home sertraline 100 mg daily,??home bupropion 200mg daily, PRN??Ativan - Hypothyroidism (E03.9):??Continue home levothyroxine - GERD (K21.9): Continue home PPI;??- start PRN tums for heartburn ?? Quality measures: Code Status:??Full VTE Prophylaxis:??SCD's Diet:??NPO for procedure, continue diet post op OMN: pending angiogram with possible renal artery and SMA stenting ?? Heydi Thorne, DO Med-Peds PGY-3 Pager [phone] or [place] ?? This patient was seen and discussed with Anshu Jones, PGY1 and??attending physician Dr. Arita. Note * Betty Woods RN: PERFORM Event Display: Discharge/Transfer Note Hospital Authored Date: [id number] Nursing Discharge Note Entered On: 08/06/2024 13:16 EST Performed On: 08/06/2024 13:16 EST by Betty Woods RN Nursing Discharge Note 2 Discharge Time : 08/06/2024 13:15 EST Discharge Level of Care at Discharge : Home/Skilled Nursing/Foster Care Patient Left Unit Via : Wheelchair Patient Accompanied Off Unit with : Responsible adult DC Instructions Provided & Signed by Pt : Yes Patient Understands D/C Instructions : Yes Patient Instructions Discharge Signed : Yes Did Pt have Specialty Bed or Wound Vac : No Betty Woods RN - 08/06/2024 13:16 EST * Anshu Jones DO: PERFORM, MODIFY, MODIFY Event Display: Discharge/Transfer Note Hospital Authored Date: [id number] Patient: ??POLI, FARZANA ? Age:??69 Years?Sex:??Female?:??1955?? Patient Information Discharge Location: Primary Care Physician: Garret Suárez NP Admit Date/Time: 08/02/2024 20:14 Discharge Disposition Discharge Disposition: Home: No Services Discharge Diagnosis Hemochromatosis (E83.119) Thrombocytopenia (D69.6) Anemia, macrocytic (D53.9) Pulmonary edema (J81.1) CKD (chronic kidney disease) (N18.9) Carotid stenosis (I65.29) Hypertensive emergency (I16.1) History of deep vein thrombosis (DVT) of lower extremity (Z86.718) COPD without exacerbation (J44.9) Ground glass opacity present on imaging of lung (R91.8) Flash pulmonary edema (J81.0) Depression (F32.A) Hypothyroidism (E03.9) Renal artery stenosis (I70.1) NATALIE (acute kidney injury) (N17.9) Acute hypoxic respiratory failure (J96.01) Chronic GERD (K21.9) _ Discharge Medications Acetaminophen (Tylenol 325 mg oral tablet)??975 Milligram By Mouth Every 6 hours as needed Pain , Mild Albuterol (Albuterol (Eqv-ProAir HFA) 90 mcg/inh inhalation aerosol)??8 Gm, 0 Refill(s), INHALE 2 PUFFS BY MOUTH EVERY 4 TO 6 HOURS NEEDED FOR WHEEZING Albuterol/Ipratropium (albuterol-ipratropium 3 mg-0.5 mg/3 ml inhalation solution)??3 Milliliter Neb 2 times a day aliskiren (aliskiren 300 mg oral tablet)??1 tab(s) 300 Milligram By Mouth Daily Aspirin (aspirin 81 mg oral capsule)??1 capsule 81 Milligram By Mouth Every 24 hours Atenolol (atenolol 50 mg oral tablet)??50 Milligram 1 tablet By Mouth 2 times a day Budesonide (budesonide 0.25 mg/2 mL inhalation suspension)??0.25 Milligram 2 times a day BuPROpion (buPROPion 200 mg/12 hours (SR) oral tablet, extended release)??1 tab(s) 200 Milligram ByMouth Daily in AM Clonidine (cloNIDine 0.2 mg oral tablet)??0.2 Milligram 1 tablet By Mouth 2 times a day Clopidogrel (Plavix 75 mg oral tablet)??75 Milligram 1 tablet By Mouth Daily Docusate (docusate sodium 100 mg oral capsule)??1 capsule 100 Milligram By Mouth 2 times a day Gabapentin (gabapentin 600 mg oral tablet)??2 tab(s) 1,200 Milligram By Mouth Daily at bedtime hydrALAZINE (hydrALAZINE 100 mg oral tablet)??1 tab(s) 100 Milligram By Mouth 3 times a day Isosorbide Mononitrate (isosorbide mononitrate 30 mg oral tablet, extended release)??1 tab(s) 30 Milligram By Mouth Daily Levothyroxine (levothyroxine 75 mcg (0.075 mg) oral tablet)??1 tab(s) 75 Microgram By Mouth Daily Lorazepam (LORazepam 0.5 mg oral tablet)??1 tab(s) 0.5 Milligram By Mouth Daily at bedtime as needed as needed for anxiety NIFEdipine (NIFEdipine 60 mg oral tablet, extended release)??60 Milligram 1 tablet By Mouth Daily Omeprazole (omeprazole 20 mg oral enteric coated capsule)??1 capsule 20 Milligram By Mouth 2 times a day Rosuvastatin (rosuvastatin 10 mg oral tablet)??1 tab(s) 10 Milligram By Mouth Daily Sertraline (sertraline 100 mg oral tablet)??1 tab(s) 100 Milligram By Mouth Daily ? Medications Started Clopidogrel (Plavix 75 mg oral tablet)??75 Milligram 1 tablet By Mouth Daily Isosorbide Mononitrate (isosorbide mononitrate 30 mg oral tablet, extended release)??1 tab(s) 30 Milligram By Mouth Daily NIFEdipine (Nifedipine 60 mg oral tablet, extended release)??60 Milligram 1 tablet By Mouth Daily Medications Discontinued amlodipine Doses Changed hydrALAZINE (hydrALAZINE 100 mg oral tablet)??1 tab(s) 100 Milligram By Mouth 3 times a day Allergies Allergies ?(Active and Proposed Allergies Only) codeine? (Severity: Unknown severity, Onset: Unknown) ?Reactions: GI upset ? PCP Follow-Up/Heads-Up Small focus of groundglass opacity in the right apex measuring up to 2.5 cm, may represent early infectious process or atelectasis. CT at 6-12 months to confirm persistence, then CT every 2 years until 5 years follow-up per Guidelines for Management of Incidental Pulmonary Nodules Detected on CT Images: From the Fleischner Society 2017. Future Appointments 2024 8:30 AM EST ?? With: Shital REYES, Marika Haddad Where: [facility] [address] [address]- Status: Pending Hospital Course Farzana Hamm is a 69-year-old F with a PMH of HTN, CKD, JUSTYN, MAGDALENE status post R carotid endarterectomy on 07/30/2024, and a hx of DVT. She presented on 08/02 with SOB and was found to have acute hypoxiadue to flash pulmonary edema in the setting of a HTN emergency. BP on admission was 212/86, and CXRshowed pulmonary edema. She was treated with IV Lasix and NTG gtt. Creatinine peaked at 1.4 (baseline ~1.1), prompting d/c of diuretics. Her chronic meds included amlodipine 10 mg daily, aliskiren 300 mg daily, atenolol 50 mg, clonidine 0.2 mg daily, and hydralazine 50 mg TID. Her BP regimen was adjusted to clonidine 0.2 mg daily, Coreg 25 mg BID, hydralazine 100 mg TID, and nifedipine 60 mg daily. BP improved after JUSTYN intervention with stenting. Pt underwent renal angiogram with intervention via L radial access, including SMA and R renal artery stenting (7 x 22 mm SMA stent, 6 x 39 mm R renal artery stent). Procedure was done by Dr. Gill. Pt developed a R eye abrasion during or after the procedure, treated with eyedrops. She is recovering well post-SMA & R renal stenting, saturating well on room air. During the admission, Atenolol was switched to Coreg for better BP control but can be switched back to atenolol and resume aliskiren at discharge. Pt started on Plavix 75mg daily and should continue for next 90 days as well as continue scheduled home ASA. She is to??avoid nephrotoxins, including NSAIDs and further IV contrast. ?? Objective Assessment and Plan Assessment:??Patient is a 69-year-old female with a past medical history significant for??hypertension, CKD, renal artery stenosis, carotid artery stenosis status post right carotid endarterectomy on07/30/2024, history of DVT not on anticoagulation pending aortobifemoral bypass, GERD, and ?hemochromatosis who??presented to ED on 08/02 with shortness of breath, and initially admitted for [facility] for hypertensive emergency on nitroglycerin gtt and acute hypoxic respiratory failure??/ flash pulmonary edema requiring CPAP. Patient was transferred to acute floor after being weaned off nitroglycerin gtt with adjustments to her po antihypertensives and now clinically stable on 2L NC. Course complicated by NATALIE on CKD, Nephrology and vascular surgery following. Pt underwent angiogram with renal artery and SMA stenting on 08/05/24. ?? Hypertensive emergency (I16.1) Renal artery stenosis??(I70.1) BP 212/ 86 on admission. Home medications: amlodipine 10mg daily, aliskiren 300mg daily, atenolol 50mg, clonidine 0.2mg daily, and hydralazine 50mg TID Patient was switched from atenolol to carvedilol on admission, her home aliskiren cannot be resumedas this interacts with carvedilol as per pharmacy. blood pressure medications adjusted with increased carvedilol dose, amlodipine switched to nifedipine, max dose hydralazine, starting Imdur 30mg daily. 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 ?? recs: - Per vascular, patient is high risk candidate??for??aortic endarterectomy??and aortobifemoral bypass. Will address lower extremity symptoms and consider extra anatomical bypass at a later date - Continue with:??hydralazine to 100??mg TID - Continue clonidine 0.2 mg twice daily - cont atenolol 50mg daily - continue Aliskiren 300 mg daily?? - Continue Imur ER 30mg daily -??F/u with outpatient conservation biology professor ?? Acute hypoxic respiratory failure (J96.01) Flash pulmonary edema (J81.0) Pulmonary edema (J81.1) Presented with shortness of breath beginning day prior to admission. Weaned off oxygen. CXR with pulmonary edema. CTA w/o evidence of PE. Recent Echo 07/08/2024 with LVEF 50% grade II diastolic dysfunction, mild mitral regurg, moderate tricuspid valve regurg??. Patient reports feels improved since being on CPAP, Lasix. Euvolemic on exam, holding off on further Lasix since creatinine function has risen after Lasix given on admission. ?? recs: - Wean O2 - consider sleep study (polysomnography). f/u outpatient. - Continue to hold further diuresis given NATALIE ?? NATALIE (acute kidney injury)??(N17.9) CKD (chronic kidney disease) (N18.9):?? Creatinine appears??close??to??baseline 1.05. Follows with conservation biology professor Dr. Spencer at [place] outpatient. hold further diuresis for now, could be secondary to hypertensive damage vs. FRANCISCA after contrast exposure 2 days ago ? recs: - Renal artery stenosis management as above - Hold diuresis as above - Avoid nephrotoxins including NSAIDs and further IV contrast - f/u conservation biology professor outpatient ?? Ground glass opacity present on imaging of lung (R91.8):?? Small focus of groundglass opacity in the right apex measuring up to 2.5 cm, may represent early infectious process or atelectasis. ?? recs: - F/u with PCP - CT at 6-12 months to confirm persistence, then CT every 2 years until 5 years follow-up per Guidelines for Management of Incidental Pulmonary Nodules Detected on CT Images: From the Fleischner Society 2017. ?? Chronic conditions: - COPD without exacerbation (J44.9):??Continue budesonide BID - History of deep vein thrombosis (DVT) of lower extremity (Z86.718):??Continue with ASA. Continue with Plavix 90 days. -??Carotid stenosis (I65.29):??Continue aspirin??81 mg daily and??rosuvastatin 10 mg daily -??Depression (F32.A):??Continue home sertraline 100 mg daily,??home bupropion 200mg daily - Hypothyroidism (E03.9):??Continue home levothyroxine - GERD (K21.9):??Continue home PPI ? Vital Signs?? Temperature: 98.2 DegF (08/06/24 07:45:00) Temperature Route: Oral (08/06/24 07:45:00) Normothermic Measures: Warming blanket (08/05/24 18:00:00) Pulse Rate: 71 bpm (08/06/24 07:45:00) Heart Rate Monitored: 73 bpm (08/05/24 22:00:04) Respiratory Rate: 20 br/min (08/06/24 07:45:00) Vented: No (08/05/24 20:00:00) Systolic Blood Pressure:??140 mm Hg??High (08/06/24 07:45:00) Diastolic Blood Pressure: 59 mm Hg (08/06/24 07:45:00) Blood pressure sites: Arm, right (08/06/24 07:45:00) Mean Arterial Pressure: 86 mm Hg (08/06/24 07:45:00) Pulse Pressure: 81 mm Hg (08/06/24 07:45:00) Oxygen Saturation: 98 % (08/06/24 07:45:00) Liters per Minute: 2 L/min (08/06/24 07:45:00) Mode of Delivery (Oxygen): Nasal cannula (08/06/24 07:45:00) Early Warning Score: 6 (08/06/24 07:46:17) ? . Physical Exam General:??In mild distress due to heartburn, alert & oriented x3 HEENT:??Moist mucus membranes Neck:??Supple Respiratory:??Clear to auscultation bilaterally, no increased work of breathing, no wheezes/rales, on 2L NC Cardiovascular:??Normal rate, regular rhythm, no murmurs/rubs/gallops, peripheral pulses intact Abdomen:??Normal active bowel sounds, soft, non-tender, non-distended Extremities:??No edema, warm & dry Skin:??No rashes, lesions or skin breakdown Surgical Procedures Angiogram Renal Artery with Intervention 08/05/2024 16:14 Angiogram Mesenteric with Intervention 08/05/2024 16:14 [facility]ants Renal Vascular Surgery Pending Results Add On Lab Order ordered on 08/05/2024 Peripheral Blood Smear Review ordered on 08/05/2024 Patient Instructions You presented to the hospital due to shortness of breath and high blood pressure. Your imaging showed fluid in your lungs, and your labs showed an increase in kidney function. You were treated with IV Lasix and nitroglycerin. You underwent surgery for stenting of your renal arteries and superior mes enteric artery. Your BP regimen was changed to clonidine 0.2 mg daily, atenolol 50mg daily, hydralazine 100 mg TID, and nifedipine 60 mg daily.. Follow up with outpatient nephrology. ? PATIENT CARE INSTRUCTIONS: -Continue to encourage plenty of fluids and rest. -Return to the emergency room for any chest pain, difficulty breathing, or severe changes in your blood pressure. -Please seek medical attention if you develop any new or concerning symptoms. -Call your primary care physician in 1-2 days to book a follow-up appointment. ?? MEDICATIONS: -Continue your current medications: clonidine 0.2 mg daily, atenolol 50??mg daily, hydralazine 100 mg TID, and nifedipine 60 mg daily, aliskiren 300mg??daily -Avoid NSAIDs (e.g., ibuprofen) and continue with ASA/Plavix daily. Results Discharge Labs BLOOD BANK Blood Type B Negative ()?? 08/04/2024 10:37 Antibody Screen Negative ()?? 08/04/2024 10:37 ?? BLOOD COUNT & DIFF WBC 3.6 k/mm3 (Low)?? 08/06/2024 00:08 RBC 2.86 m/mm3 (Low)?? 08/06/2024 00:08 Hgb 9.4 Gm/dL (Low)?? 08/06/2024 00:08 Hct 29.0 % (Low)?? 08/06/2024 00:08 MCV 101.4 femtoliters (High)?? 08/06/2024 00:08 MCH 32.9 pg ()?? 08/06/2024 00:08 MCHC 32.4 Gm/dL (Low)?? 08/06/2024 00:08 Platelet Count 115 k/mm3 (Low)?? 08/06/2024 00:08 RDW-SD 57.8 femtoliters (High)?? 08/06/2024 00:08 MPV 10.3 femtoliters ()?? 08/06/2024 00:08 Nucleated RBC (Automated) 0.0 #/100 WBC'S ()?? 08/06/2024 00:08 Abs. NRBC 0.0 k/mm3 ()?? 08/06/2024 00:08 Abs. Neut 3.0 k/mm3 ()?? 08/05/2024 00:33 Abs. Lymph 1.0 k/mm3 ()?? 08/05/2024 00:33 Abs. [place] 0.7 k/mm3 ()?? 08/05/2024 00:33 Abs. Eo 0.2 k/mm3 ()?? 08/05/2024 00:33 Abs. Baso 0.0 k/mm3 ()?? 08/05/2024 00:33 Neut % 61.0 % ()?? 08/05/2024 00:33 Lymph % 19.6 % ()?? 08/05/2024 00:33 [place] % 13.5 % (High)?? 08/05/2024 00:33 Eos % 4.5 % ()?? 08/05/2024 00:33 Baso % 0.8 % ()?? 08/05/2024 00:33 Imm Gran 0.6 % ()?? 08/05/2024 00:33 Abs. Imm Gran 0.0 k/mm3 ()?? 08/05/2024 00:33 Citrated Platelet Count 106 k/mm3 (Low)?? 08/06/2024 00:08 ? CARDIAC Nt-Probnp 96764 pg/mL (High)?? 08/02/2024 14:45 High Sensitivity Troponin (HSTnT) 10 ng/L ()?? 08/05/2024 10:31 ?? CHEM GENERAL Sodium 138 mmol/L ()?? 08/06/2024 00:08 Potassium 3.6 mmol/L ()?? 08/06/2024 00:08 Chloride 100 mmol/L ()?? 08/06/2024 00:08 Bicarbonate Level 25 mmol/L ()?? 08/06/2024 00:08 Anion Gap 13 mmol/L ()?? 08/06/2024 00:08 Glucose Level 170 mg/dL (High)?? 08/06/2024 00:08 Glucose, POC 105 mg/dL (High)?? 08/02/2024 14:27 BUN 18 mg/dL ()?? 08/06/2024 00:08 Creatinine-Blood 1.05 mg/dL (High)?? 08/06/2024 00:08 Estimated GFR Creatinine 58 ML/MIN/1.73 M2 ()?? 08/06/2024 00:08 Calcium 8.7 mg/dL ()?? 08/06/2024 00:08 Calcium, Ionized pH Corrected 1.20 mmol/L ()?? 08/05/2024 00:33 Phosphorus 2.6 mg/dL ()?? 08/06/2024 00:08 Magnesium 1.5 mg/dL (Low)?? 08/06/2024 00:08 Protein, Total 7.5 Gm/dL ()?? 08/02/2024 14:45 Albumin 4.1 Gm/dL ()?? 08/02/2024 14:45 AG Ratio 1.2 ()?? 08/02/2024 14:45 Alkaline Phosphatase 100 units/L ()?? 08/02/2024 14:45 AST (SGOT) 26 units/L ()?? 08/02/2024 14:45 ALT (SGPT) 11 units/L ()?? 08/02/2024 14:45 Bilirubin, Total 0.8 mg/dL ()?? 08/02/2024 14:45 Vitamin B12 Level 931 pg/mL ()?? 08/05/2024 10:31 Folic Acid Level 10.2 ng/mL ()?? 08/06/2024 00:08 Lactate 0.6 mmol/L ()?? 08/05/2024 10:31 ?? COAG INR 1.1 ()?? 08/05/2024 00:33 Protime (PT) 11.4 seconds ()?? 08/05/2024 00:33 D-Dimer 2.23 mg/L FEU (High)?? 08/02/2024 14:44 POC ACT-LR 267.0 seconds ()?? 08/05/2024 17:32 ?? URINE OTHER Est Creatinine Clearance 48.94 mL/min ()?? 08/06/2024 01:38 ? VIROLOGY Influenza A PCR NEGATIVE ()?? 08/02/2024 14:27 Influenza B PCR NEGATIVE ()?? 08/02/2024 14:27 RSV PCR NEGATIVE ()?? 08/02/2024 14:27 COVID-19 PCR Specimen Source NASAL ()?? 08/02/2024 14:27 COVID-19 PCR Result NEGATIVE ()?? 08/02/2024 14:27 ? 30??minutes spent on discharge ?? Case was discussed and reviewed with attending Dr. Arita ?? Anshu Jones MS, DO [facility] ? * Chuck DUPREE, Betty: PERFORM Event Display: Patient Education/Instruction Authored Date: [id number] Inpatient Adult Discharge Instructions. [place] [id number] Name: FARZANA HAMM : 1955?? Visit: 08/02/2024 20:14?? Current Date: 08/06/2024 12:35 ?? Account: [id number]?? Inpatient Adult Discharge Instructions We would like to thank you for allowing us to assist you with your healthcare needs. The following includes patient education materials and information regarding your injury/illness. Our entire staffstrives to provide an excellent experience for our patients and their families. PLEASE ENSURE YOU FOLLOW-UP PER THE INSTRUCTIONS BELOW! ?? YOUR OPINION IS IMPORTANT TO US! Please complete the survey you may receive by mail or email. Your feedback will be used to make improvements to the healthcare experiences of our patients and their families. Surveys are administered by [employer] ?? If further treatment with your primary care physician or another doctor is recommended, it is important for you to keep the appointment. Call your primary care physician or return to the Emergency Department immediately if your condition worsens, fails to improve, or new symptoms develop. If you need to find a doctor, you can call [facility] for a referral at [phone] or toll free at [phone] or log in to [email or web address].. ?? [facility], in keeping with [facility] guidance, no longer requires face [...] medical provider or home test kit. ?? You can view and manage your care through the patient portal or by using a health care christophe of your choosing. [employer] is a website that allows you to securely view your medical information including your hospital discharge summary, office visit summaries, medications and follow-up visits. You can also request appointments, renew medications, and request access to your medical information using a health care christophe of your choosing, or just ask a question. You can enroll at [email or web address] or register during your next office visit. You have been discharged from [facility], Patient Care Unit: S15??. If you have any questions regarding these instructions, including results of studies pending, afteryou leave, please call us and we will be happy to assist you 14/01. [facility] Your Care Team Attending Physician Lauren Arita MD?? Consulting Providers Lauren Arita MD?? Discharging Providers Heydi Thorne DO Reason for Your Visit see stella one sheet?? Your Diagnosis Hypertensive emergency CKD (chronic kidney disease) Carotid stenosis Depression Hypothyroidism Acute hypoxic respiratory failure NATALIE (acute kidney injury) Anemia, macrocytic Chronic GERD COPD without exacerbation Flash pulmonary edema Ground glass opacity present on imaging of lung Hemochromatosis History of deep vein thrombosis (DVT) of lower extremity Renal artery stenosis Thrombocytopenia Tests Performed Below is a partial list of the tests performed during your hospitalization. You may have had other tests and procedures not included in this list. Please discuss all test results with your provider. Basic Metabolic Panel BUN CBC CBC w/ Differential Citrated Platelet Count Comprehensive Metabolic Panel COVID-19, RSV, and Flu A/B, Rapid PCR Creatinine D Dimer Electrolytes Folate Level Glucose Level GLUCOSE POC High??Sensitivity??Troponin T INR Ionized Calcium Lactate Level Lytes Magnesium Level Mg Level PERIPHERAL BLOOD SMEAR REVIEW Phosphorus Level POC Hemochron ACT-LR ProBNP Troponin T, High Sensitivity Type and Screen VITAMIN B12 CT Angio Chest CXR Portable Add On Lab Order?? B Type Natriuretic Peptide (NT-proBNP) (ProBNP)?? BUN?? Basic Metabolic Panel?? CBC?? CBC w/ Differential?? COVID-19, RSV, and Flu A/B, Rapid PCR?? CT Angio Chest?? Citrated Platelet Count?? Comprehensive Metabolic Panel?? Creatinine?? D Dimer?? Electrolytes?? Folate Level?? Glucose Level?? Glucose POC?? High??Sensitivity??Troponin T (Troponin T, High Sensitivity)?? INR?? Ionized Calcium?? Lactic Acid Level (Lactate Level)?? Magnesium Level?? POC ACT-LR (POC Hemochron ACT-LR)?? Peripheral Blood Smear Review?? Phosphorus Level?? Type and Screen?? Vitamin B12 Level (VITAMIN B12)?? Chest Portable (CXR Portable)?? Primary Care Provider Garret Suárez NP? Advance Directive Health Care Proxy on File Yes - Health Care Proxy Discharge Vitals Temperature: 98.7 DegF Height: 168 cm Pulse Rate: 79 bpm Weight: 74.1 kg Respiratory Rate: 18 br/min Body Mass Index:??26.25 kg/m2??High Systolic Blood Pressure: 130 mm Hg Body surface area: 1.86 Diastolic Blood Pressure:??87 mm Hg??High ?? Oxygen Saturation: 97 % ?? Studies Pending All studies ordered during this hospital stay have been completed unless listed below. Please discuss all pending results with your provider listed above in these instructions. ?? Add On Lab Order?? What to do next Instructions From Your Doctor You presented to the hospital due to shortness of breath and high blood pressure. Your imaging showed fluid in your lungs, and your labs showed an increase in kidney function. You were treated with IV Lasix and nitroglycerin. You underwent surgery for stenting of your renal arteries and superior mes enteric artery. Your BP regimen was changed to clonidine 0.2 mg daily, atenolol 50mg daily, hydralazine 100 mg TID, and nifedipine 60 mg daily.. Follow up with outpatient nephrology. ? PATIENT CARE INSTRUCTIONS: -Continue to encourage plenty of fluids and rest. -Return to the emergency room for any chest pain, difficulty breathing, or severe changes in your blood pressure. -Please seek medical attention if you develop any new or concerning symptoms. -Call your primary care physician in 1-2 days to book a follow-up appointment. ?? MEDICATIONS: -Continue your current medications: clonidine 0.2 mg daily, atenolol 50??mg daily, hydralazine 100 mg TID, and nifedipine 60 mg daily, aliskiren 300mg??daily -Avoid NSAIDs (e.g., ibuprofen) and continue with ASA/Plavix daily. ?? Orders?? morning meds and magnesium repletion, ??08/06/24 11:11:00 EST?? Scheduled Follow-Up Appointments 2024 8:30 AM EST ?? With: Shital REYES, Marika Haddad Where: [place] [address]- Status: Pending Discharge Medications FARZANA HAMM :1955 Visit Date:08/02/2024 Medications: Please continue your medications until treatment is completed or stopped by your provider. Medications not listed below should be discontinued. Discuss any questions related to medications with your provider. What How Much When Instructions Next Dose New Clopidogrel (Plavix 75 mg oral tablet) 1 tab(s) Oral Daily Duration: 90 Days Pickup at [place] [address] 08/07 AM New Isosorbide Mononitrate (isosorbide mononitrate 30 mg oral tablet, extended release) 1 tab(s) Oral Daily Pickup at [place] [address] 08/07 AM New NIFEdipine (NIFEdipine 60 mg oral tablet, extended release) 1 tab(s) Oral Daily Pickup at [place] [address] 08/07 AM Changed hydrALAZINE (hydrALAZINE 100 mg oral tablet) 1 tab(s) Oral 3 times a day Pickup at [place] [address] 08/06 PM Unchanged Acetaminophen (Tylenol 325 mg oral tablet) 975 Milligram Oral Every 6 hours as needed for Pain , Mild as needed Unchanged Albuterol (Albuterol (Eqv-ProAir HFA) 90 mcg/ inh inhalation aerosol) 8 Gm, 0 Refill(s), INHALE 2 PUFFS BY MOUTH EVERY 4 TO 6 HOURS NEEDED FOR WHEEZING ?? as needed Unchanged Albuterol/ Ipratropium (albuterol-ipratropium 3 mg-0.5 mg/ 3 ml inhalation solution) 3 Milliliter Nebulized inhalation Twice a day 08/06 PM Unchanged aliskiren (aliskiren 300 mg oral tablet) 1 tab(s) Oral Daily 08/07 Unchanged Aspirin (aspirin 81 mg oral capsule) 1 capsule Oral Every 24 hours 08/07 Unchanged Atenolol (atenolol 50 mg oral tablet) 1 tab(s) Oral Twice a day 08/06 PM Unchanged Budesonide (budesonide 0.25 mg/ 2 mL inhalation suspension) 2 Milliliter Twice a day 08/06 Unchanged BuPROpion (buPROPion 200 mg/ 12 hours (SR) oral tablet, extended release) 1 tab(s) Oral Daily in the morning 08/07 AM Unchanged Clonidine (cloNIDine 0.2 mg oral tablet) 1 tab(s) Oral Twice a day 08/06 Unchanged Docusate (docusate sodium 100 mg oral capsule) 1 capsule Oral Twice a day 08/06 Unchanged Gabapentin (gabapentin 600 mg oral tablet) 2 tab(s) Oral Daily at Bedtime bedtime Unchanged Levothyroxine (levothyroxine 75 mcg (0.075 mg) oral tablet) 1 tab(s) Oral Daily 08/07 Unchanged Lorazepam (LORazepam 0.5 mg oral tablet) 1 tab(s) Oral Daily at Bedtime as needed for as needed for anxiety as needed Unchanged Omeprazole (omeprazole 20 mg oral enteric coated capsule) 1 capsule Oral Twice a day 08/06 Unchanged Rosuvastatin (rosuvastatin 10 mg oral tablet) 1 tab(s) Oral Daily 08/07 Unchanged Sertraline (sertraline 100 mg oral tablet) 1 tab(s) Oral Daily 08/07 [facility] [address], [place] [id number] [phone] ?? What How Much When Comments Stop Taking Amlodipine (amLODIPine 10 mg oral tablet) 1 tab(s) Oral Daily Prescription Given During Visit Clopidogrel (Plavix 75 mg oral tablet) - 1 tablet = 75 mg, By Mouth, Daily, # 90 tablet, 0 Refills,[facility] [address] [address] [phone]?? Isosorbide Mononitrate (isosorbide mononitrate 30 mg oral tablet, extended release) - 1 tablet = 30mg, By Mouth, Daily, # 30 tablet, 0 Refills, [facility] [address] [address] [phone]?? NIFEdipine (NIFEdipine 60 mg oral tablet, extended release) - 1 tablet = 60 mg, By Mouth, Daily, # 30 tablet, 0 Refills, [facility] [address] [address] [phone]?? hydrALAZINE (hydrALAZINE 100 mg oral tablet) - 1 tablet = 100 mg, By Mouth, 3 times a day, # 90 tablet, 0 Refills, [address] [address] [id number]?? Laboratory Results Below is a partial list of the most recent Laboratory test results done prior to this discharge. You may have had other tests and procedures not included in this list. Please discuss all test resultswith your provider. Est Creatinine Clearance - 48.94 mL/min (08/06/2024) Basic Metabolic Panel (08/06/2024) ???Sodium - 138 mmol/L???Potassium - 3.6 mmol/L???Chloride - 100 mmol/L???Bicarbonate Level - 25 mmol/L???Anion Gap - 13 mmol/L???Glucose Level - 170 mg/dL???BUN - 18 mg/dL???Creatinine-Blood - 1.05 mg/dL???Estimated GFR Creatinine - 58 ML/MIN/1.73 M2???Calcium - 8.7 mg/dL BUN (08/05/2024) ???BUN - 24 mg/dL CBC (08/06/2024) ???WBC - 3.6 k/mm3???RBC - 2.86 m/mm3???Hgb - 9.4 Gm/dL???Hct - 29.0 %???MCV - 101.4 femtoliters???MCH - 32.9 pg???MCHC - 32.4 Gm/dL???Platelet Count - 115 k/mm3???RDW-SD - 57.8 femtoliters???MPV - 10.3 femtoliters???Nucleated RBC (Automated) - 0.0 #/100 WBC'S???Abs. NRBC - 0.0 k/mm3 CBC w/ Differential (08/05/2024) ???WBC - 4.9 k/mm3???RBC - 2.59 m/mm3???Hgb - 8.8 Gm/dL???Hct - 27.2 %???MCV - 105.0 femtoliters???MCH - 34.0 pg???MCHC - 32.4 Gm/dL???Platelet Count - 101 k/mm3???RDW-SD - 61.2 femtoliters???MPV - 10.2 femtoliters???Nucleated RBC (Automated) - 0.0 #/100 WBC'S???Abs. NRBC - 0.0 k/mm3???Abs. Neut - 3.0 k/mm3???Abs. Lymph - 1.0 k/mm3???Abs. [place] - 0.7 k/mm3???Abs. Eo - 0.2 k/mm3???Abs. Baso - 0.0 k/mm3???Neut % - 61.0 %???Lymph % - 19.6 %???[place] % - 13.5 %???Eos % - 4.5 %???Baso % - 0.8 %???Imm Gran - 0.6 %???Abs. Imm Gran - 0.0 k/mm3 Citrated Platelet Count (08/06/2024) ???Citrated Platelet Count - 106 k/mm3 Comprehensive Metabolic Panel (08/02/2024) ???Sodium - 139 mmol/L???Potassium - 4.6 mmol/L???Chloride - 105 mmol/L???Bicarbonate Level - 20 mmol/L???Anion Gap - 14 mmol/L???Glucose Level - 116 mg/dL???BUN - 22 mg/dL???Creatinine-Blood - 1.11 mg/dL???Estimated GFR Creatinine - 54 ML/MIN/1.73 M2???Calcium - 8.8 mg/dL???Protein, Total - 7.5 Gm/ dL???Albumin - 4.1 Gm/dL???AG Ratio - 1.2???Alkaline Phosphatase - 100 units/L???AST (SGOT) - 26 units/L???ALT (SGPT) - 11 units/L???Bilirubin, Total - 0.8 mg/dL COVID-19, RSV, and Flu A/B, Rapid PCR (08/02/2024) ???Influenza A PCR - NEGATIVE???Influenza B PCR - NEGATIVE???RSV PCR - NEGATIVE???COVID-19 PCR Specimen Source - NASAL???COVID-19 PCR Result - NEGATIVE Creatinine (08/05/2024) ???Creatinine-Blood - 1.20 mg/dL???Estimated GFR Creatinine - 50 ML/MIN/1.73 M2 D Dimer (08/02/2024) ???D-Dimer - 2.23 mg/L FEU Electrolytes (08/05/2024) ???Sodium - 138 mmol/L???Potassium - 3.8 mmol/L???Chloride - 104 mmol/L???Bicarbonate Level - 22 mmol/L???Anion Gap - 12 mmol/L Folate Level (08/06/2024) ???Folic Acid Level - 10.2 ng/mL Glucose Level (08/05/2024) ???Glucose Level - 85 mg/dL GLUCOSE POC (08/02/2024) ???Glucose, POC - 105 mg/dL High??Sensitivity??Troponin T (08/02/2024) ???High Sensitivity Troponin (HSTnT) - 11 ng/L INR (08/05/2024) ???INR - 1.1???Protime (PT) - 11.4 seconds Ionized Calcium (08/05/2024) ???Calcium, Ionized pH Corrected - 1.20 mmol/L Lactate Level (08/05/2024) ???Lactate - 0.6 mmol/L Lytes (08/03/2024) ???Sodium - 138 mmol/L???Potassium - 4.3 mmol/L???Chloride - 104 mmol/L???Bicarbonate Level - 23 mmol/L???Anion Gap - 11 mmol/L Magnesium Level (08/06/2024) ???Magnesium - 1.5 mg/dL Mg Level (08/03/2024) ???Magnesium - 1.7 mg/dL PERIPHERAL BLOOD SMEAR REVIEW (08/05/2024) ???Peripheral Blood Smear Review Interp. - Reviewed by pathologist. Phosphorus Level (08/06/2024) ???Phosphorus - 2.6 mg/dL POC Hemochron ACT-LR (08/05/2024) ???POC ACT-LR - 267.0 seconds ProBNP (08/02/2024) ???Nt-Probnp - 86307 pg/mL Troponin T, High Sensitivity (08/05/2024) ???High Sensitivity Troponin (HSTnT) - 10 ng/L Type and Screen (08/04/2024) ???Blood Type - B Negative???Antibody Screen - Negative VITAMIN B12 (08/05/2024) ???Vitamin B12 Level - 931 pg/mL You will be contacted within 72 hours with your results. Immunizations This Visit Not Given Vaccine Commentsinfluenza virus vaccine, inactivated Patient Refuses Allergies (NKA means No Known Allergies) codeine??(GI upset) Problems Active Problems??(4) Carotid stenosis?? CKD (chronic kidney disease)?? Claudication of lower extremity?? Renal artery stenosis?? Education Materials Below is the list of Educational Leaflet Providered with your Discharge Instructions. Valuables and Belongings I fully understand and agree that [facility] accepts no responsibility for all my personal property including clothing, toilet articles, radios, jewelry, dentures, hearing aids, rings, money, or any other property that is in my possession or is brought to me after admission. I understand certain valuables may be placed in a hospital safe for a short period of time. I understand that the hospital is not liable for loss or damage due to accident, fire, or other natural occurrence while said property is in the safe. I accept full responsibility for any personal property that I keep with me, and will not hold the hospital responsible in case of loss or disappearance. I acknowledge that i have been encouraged to send valuables and belongings home. ?? Review of Valuable and Belonging List: With patient, With family Possessions released to: no valuables in pre-op 08/05/2024 Date for Pt to Sign Valuables/Belongings: 08/06/24 10:44:00 ?? Other Discharge Information ? Case Management Discharge Plan?? Discharge Plan?? Discharge Level of Care at Discharge: Home/Skilled Nursing/Foster Care ?? Pulmonary Rehab Status?? Pulmonary Rehab Discharge Status?? CPAP/BiPAP Mask Type: Full CPAP/BiPAP Mask Size: Medium Respiratory Rate: 18 br/min ? Common Emergency Awareness Tips IS IT A [...] are strongly encouraged to quit. Please call [facility] at [phone] or [phone] ([phone]) or log in to [email or web address] for referrals to smoking cessation programs. ?? 711 Suicide & Crisis Lifeline is available 14/01 if you or someone you know needs to find a reason to keep living. By calling 006 you'll be connected to a skilled, trained counselor at a crisis center in your area. INPATIENT DISCHARGE INSTRUCTIONS SIGNATURE PAGE FARZANA HAMM Location:[facility] Registration Date and Time:08/02/2024 20:14 EST Primary Care Physician: Kamini REYES, Garret Frey, Attending Physician: Lauren Arita MD, FARZANA HORNE, have received the above patient education materials/instructions and have verbalized understanding. If ambulance or transport services are being used I further acknowledge being given a choice of service. ?? If you need to contact me, please call me at this number: . Patient/Cyber Incident Analyst Name: Patient/Cyber Incident Analyst Signature: Relationship to Patient: Witness Name/Signature: Date: * Betty Woods RN: PERFORM Event Display: Patient Education Leaflets Authored Date: [id number] Discharge Instructions for Renal Angiography ?? 87789 Discharge Instructions for Renal Angiography You had a procedure called a renal angiography. This imaging test checks the blood vessels in your kidneys. This procedure used a thin, flexible tube called a catheter. The catheter??is inserted intoone of your blood vessels through a small cut or incision. A dye is injected to make your blood vessels show up better on X-ray images. Then X-ray pictures are taken. Here???s what to do at home following this procedure. Home care ??? Don't drive until the day after your procedure. ??? Do only light and easy activitiesfor?? 2 to 3 ??days after the procedure. ??? Don't do any strenuous activity for?? 2??weeks after the procedure. ??? Exercise according to your healthcare provider's recommendations. ??? Ask your healthcare provider when you can return to work. ??? You can shower the day after your procedure. But don't??swim or sit in a bath or hot tub until your incision has healed. ??? Take your medicines exactly as directed. ??? Unless told otherwise, drink?? 6 to 8 ??glasses of water a day. This will prevent fluid loss or dehydration. It will also help flush the X-ray dye out of your body. ??? Take your temperature and check your incision for signs of infection every day for a week. Check for redness, swelling, or warmth at the incision site. ?? Follow-up care Make a follow-up appointment with your healthcare provider, or as directed. ?? When to call your healthcare provider Call your healthcare provider right away if any of the following occur: ??? Steady or increasing pain or any numbness in your leg ??? Fever??of?? 100.4?? F??( 38??C) or higher, or as directed by your healthcare provider ??? Chills ??? Signs of infection, such as redness,swelling, or warmth at the incision site ??? A leg that feels cold or looks blue ??? Bleeding, bruising, or lots of swelling where the catheter was inserted ??? Blood in your urine ??? Black or tarrystools ??? Any unusual bleeding ??? Having more or less urine than normal (a change in urine output) Call 911 Call 911 if any of the following occur: ??? Trouble breathing ??? Large amount of bleeding or bleeding that can't be stopped ?? Last Reviewed Date: 2022 ?? 3115-7722 [employer]. All rights reserved. This information is not intended as a substitute for professional medical care. Always follow your healthcare professional's instructions. ?? * Betty Woods RN: PERFORM Event Display: Patient Education Leaflets Authored Date: [id number] Peripheral Angiography ?? 92411 Peripheral Angiography Peripheral angiography is a test that uses X-ray and dye (contrast material) to map the blood vessels (arteries) in your lower body, legs, and arms. This map can show where blood flow may be blocked. ?? Talk with your healthcare provider about the risks and possible complications of angiography. ?? Before the test Get ready for the peripheral angiography as follows:? Tell your healthcare provider about all medicines you take. This includes prescription and iwxr-gfi-saldaua medicines. It also includes vitamins, herbs, and other supplements. ??? Tell your provider about any allergies you may have. ??? Follow any directions you???re given for not eating or drinking before the test. If your provider says to take your normal medicines, swallow them with only small sips of water. ??? Arrange for a family member or friend to drive you home. ?? During the test Here is what to expect: ??? You may get medicine through an IV (intravenous) line to relax you. You???re given an injection to numb the insertion site. Then, a tiny skin cut (incision) is made near an artery in your groin. ??? Your healthcare provider inserts a thin tube (catheter) through the incision. They then thread the catheter into an artery while looking at a video screen. ??? Contrast dyeis injected into the catheter to confirm position. You may feel warmth or pressure in your legs andback. You lie still as X-rays are taken. The catheter is then taken out. ?? After the test You???ll be taken to a recovery area. A healthcare provider will apply pressure to the site for about 10 minutes. You will need to lie flat for several hours. Your healthcare provider will tell you how long to lie down and keep the insertion site still.??They will discuss the results with you soon after the test. ?? Back at home On the day you get home, don???t drive, exercise, walk, or use stairs. Don't bend or lift anything.Your healthcare provider may give you additional care instructions. ?? When to call your healthcare provider Call your healthcare provider right away if: ??? You notice a lump or bleeding at the insertion site, but you can control it with firm pressure ??? You feel pain at the insertion site ??? You don't pee in 8 hours? Call 911 Call 911 right away if you: ??? Notice a lump or bleeding at the insertion site, and you can't control it with firm pressure ??? Become lightheaded or dizzy ??? Have leg pain or numbness, or your legbecomes cold or blue ?? Last Reviewed Date: 2023 ?? [id number] [employer]. All rights reserved. This information is not intended as a substitute for professional medical care. Always follow your healthcare professional's instructions. ?? * Betty Woods RN: PERFORM Event Display: Patient Education Leaflets Authored Date: [id number] Clopidogrel ?? [id number] Clopidogrel Brand Name(s): Plavix??; also available generically ?? IMPORTANT WARNING: Clopidogrel must be changed to an active form in your body so that it can treat your condition. Some people do not change clopidogrel to its active form in the body as well as other people. Because the medication does not work as well in these people, they may be at a higher risk of having a heart attack or stroke. There are tests available to identify people who have trouble changing clopidogrelto an active form. Talk to your doctor about whether you should be tested. If you are found to havedifficulty converting clopidogrel to its active form, your doctor may change your dose of clopidogrel or tell you not to take clopidogrel. Your doctor or pharmacist will give you the [employer] patient information sheet (Medication Guide) when you begin treatment with clopidogrel and each time you refill your prescription. Read the information carefully and ask your doctor or pharmacist if you have any questions. You can also visit the Food and Drug Administration (FDA) website (https://www.fda.gov/Drugs/DrugSafety/gqi453125.htm) or the [employer] website to obtain the Medication Guide. Talk to your doctor about the risks of taking clopidogrel. WHY is this medicine prescribed? Clopidogrel is used alone or with aspirin to prevent serious or life-threatening problems with the heart and blood vessels in people who have had a stroke, heart attack, or severe chest pain. This includes people who have percutaneous coronary intervention (PCI; angioplasty; a type of heart surgery) that may involve inserting coronary stents (metal tubes surgically placed in clogged blood vesselsto improve blood flow) or who have coronary artery bypass grafting (CABG; a type of heart surgery).Clopidogrel is also used to prevent serious or life-threatening problems with the heart and blood vessels in people who have peripheral arterial disease (poor circulation in the blood vessels that supply blood to the legs). Clopidogrel is in a class of medications called antiplatelet medications. It works by preventing platelets (a type of blood cell) from collecting and forming clots that may cause a heart attack or stroke. HOW should this medicine be used? Clopidogrel comes as a tablet to take by mouth. It is usually taken once a day with or without food. Take clopidogrel at around the same time every day. Follow the directions on your prescription label carefully, and ask your doctor or pharmacist to explain any part you do not understand. Take clopidogrel exactly as directed. Do not take more or less of it or take it more often than prescribed byyour doctor. Clopidogrel will help prevent serious problems with your heart and blood vessels only as long as you take the medication. Continue to take clopidogrel even if you feel well. Do not stop taking clopidogrel without talking to your doctor. If you stop taking clopidogrel, there is a higher risk that you may have a heart attack or stroke. If you have a stent, there is also a higher risk that you coulddevelop a blood clot in the stent if you stop taking clopidogrel too soon. Are there OTHER USES for this medicine? Clopidogrel is also sometimes used to prevent blood clots in people with atrial fibrillation (a condition in which the heart beats irregularly). Talk to your doctor about the possible risks of using this medication for your condition. This medication may be prescribed for other uses; ask your doctor or pharmacist for more information. What SPECIAL PRECAUTIONS should I follow? Before taking clopidogrel, ??? tell your doctor and pharmacist if you are allergic to clopidogrel, prasugrel (Effient), ticlopidine, any other medications, or any ingredient in clopidogrel tablets. Ask your pharmacist or checkthe Medication Guide for a list of the ingredients. ??? tell your doctor and pharmacist what other prescription and nonprescription medications, vitamins, nutritional supplements, and herbal productsyou are taking or plan to take while taking clopidogrel. Your doctor may need to change the doses of your medications or monitor you carefully for side effects. . ??? The following nonprescription products may interact with clopidogrel: omeprazole (Prilosec, Prilosec OTC, Zegerid); esomeprazole (Nex ium); aspirin and other nonsteroidal anti-inflammatory drugs (NSAIDs) such as ibuprofen (Advil, Motrin) and naproxen (Aleve, Naprosyn). Be sure to let your doctor and pharmacist know that you are taking these medications before you start taking clopidogrel. Do not start any of these medications while taking clopidogrel without discussing with your healthcare provider. ??? tell your doctor if you have bleeding ulcers (sores in the lining of the stomach or small intestine that are bleeding), bleeding in the brain, or any other condition that causes severe bleeding. Your doctor may tell you thatyou should not take clopidogrel. ??? tell your doctor if you have recently been injured and if you h ave or have ever had liver or kidney disease or any condition that may cause bleeding, including stomach problems such as ulcers. ??? tell your doctor if you are , plan to become , orare breast-feeding. If you become while taking clopidogrel, call your doctor. ??? if you are having surgery, including dental surgery, tell the doctor or dentist that you are taking clopidogrel. Your doctor may tell you to stop taking clopidogrel at least 5 days prior to your surgery to avoid excessive bleeding during surgery. Your doctor will tell you when to start taking clopidogrel again after your surgery. ??? you should know that you may bleed more easily or for a longer time than usual while you are taking clopidogrel. Be careful not to cut or hurt yourself while you are takingclopidogrel. What SPECIAL DIETARY instructions should I follow? Unless your doctor tells you otherwise, continue your normal diet. What should I do IF I FORGET to take a dose? Take the missed dose as soon as you remember it. However, if it is almost time for the next dose, skip the missed dose and continue your regular dosing schedule. Do not take a double dose to make up for a missed one. What SIDE EFFECTS can this medicine cause? Some side effects can be serious. If you experience any of the following symptoms, call your doctorimmediately: ??? hives ??? rash ??? itching ??? difficulty breathing or swallowing ??? swelling of the face, throat, tongue, lips, eyes, hands, feet, ankles, or lower legs ??? hoarseness ??? black and tarry stools ??? red blood in stools ??? bloody vomit ??? vomit that looks like coffee grounds ??? unusual bleeding or bruising ??? pink or brown urine ??? slow or difficult speech ??? weakness or numbness of anarm or a leg ??? changes in vision ??? fever ??? shortness of breath ??? fast heartbeat ??? pale skin ??? purple patches or bleeding under the skin ??? confusion ??? yellowing of the skin or eyes ???seizures Clopidogrel may cause other side effects. Call your doctor if you have any unusual problems while taking this medication. If you experience a serious side effect, you or your doctor may send a report to the Food and Drug Administration's (FDA) MedWatch Adverse Event Reporting program online (https://www.fda.gov/Safety/MedWatch) or by phone ( ). What should I know about STORAGE and DISPOSAL of this medication? Keep this medication in the container it came in, tightly closed, and out of reach of children. Store it at room temperature and away from excess heat and moisture (not in the bathroom). Unneeded medications should be disposed of in special ways to ensure that pets, children, and otherpeople cannot consume them. However, you should not flush this medication down the toilet. Instead,the best way to dispose of your medication is through a medicine take-back program. Talk to your pharmacist or contact your local garbage/recycling department to learn about take-back programs in your community. See the FDA's Safe Disposal of Medicines website (https://goo.gl/c4Rm4p) for more information if you do not have access to a take-back program. It is important to keep all medication out of sight and reach of children as many containers (such as weekly pill minders and those for eye drops, creams, patches, and inhalers) are not child-resistant and young children can open them easily. To protect young children from poisoning, always lock safety caps and immediately place the medication in a safe location ??? one that is up and away and out of their sight and reach. https://www.upandaway.org What should I do in case of OVERDOSE? In case of overdose, call the poison control helpline at . Information is also available online at https://www.poisonhelp.org/help. If the victim has collapsed, had a seizure, has trouble breathing, or can't be awakened, immediately call emergency services at 911. Symptoms of overdose may include the following: ??? unusual bruising or bleeding What OTHER INFORMATION should I know? Keep all appointments with your doctor. Do not let anyone else take your medication. Ask your pharmacist any questions you have about refilling your prescription. It is important for you to keep a written list of all of the prescription and nonprescription (hvrl-qep-udjwncv) medicines you are taking, as well as any products such as vitamins, minerals, or otherdietary supplements. You should bring this list with you each time you visit a doctor or if you areadmitted to a hospital. It is also important information to carry with you in case of emergencies. This report on medications is for your information only, and is not considered individual patient advice. Because of the changing nature of drug information, please consult your physician or pharmacist about specific clinical use. The [employer] represents that the information provided hereunder was formulated with a reasonable standard of care, and in conformity with professional standards in the field. The [employer] makes no representations or warranties, express or implied, including, but not limited to, any implied warranty of merchantability and/or fitness for a particular purpose, with respect to such information and specifically disclaims all such warranties. Users are advised that decisions regarding drug therapy are complex medical decisions requiring the independent, informed decision of an appropriate health palliative care physician, and the information is provided for informational purposes only. The entire monograph for a drug should be reviewed for a thorough understanding of the drug's actions, uses and side effects. The [employer] does not endorse or recommend the use of any drug.The information is not a substitute for medical care. AHFS?? Patient Medication Information???. ?? Copyright, 2023. The [employer]??, [address], [address], [place], [place]. All Rights Reserved. Duplication for commercial use must be authorized by [facility]. Selected Revisions: December 12, 2023. AHFS?? Patient Medication Information???. ?? Copyright, 2024 ?? * Event Display: Provider Clarification Note Please click on pdf link to open report Consult note * Aleyda Beltran MD W: PERFORM Event Display: Consultation Note Authored Date: [id number] Patient: ??FARZANA HAMM ? Age:??69 Years?Sex:??Female?:??1955?? Chief Complaint/Reason for Consult see stella one sheet ?Consult requested by: ??Paramasivam ?Consulted physician: Dr. Gill ?Reason for consultation: Saint Johns Syndrome History of Present Illness Farzana Hamm 69F??PMH HTN, CKD, renal artery stenosis, R??carotid artery stenosis status post right carotid endarterectomy on 07/30/[address] 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 Vascular surgery was consulted for??any recommendations??regarding??treatment options for??her renal artery stenosis. ?? Patient is well-known to the vascular surgery service.?? 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 ??She also has bilateral lower extremity claudication, left greater than right. ??She is status post a right??carotid endarterectomy for??right carotid artery stenosis on 07/30/24. Her postoperative cardiac nuclear stress test was unremarkable. She is planned for a??fairly extensive aortic endarterectomy aortobifemoral bypass, if she??does well after her carotid endarterectomy surgery.?? She states that she has been doing well from her surgery??4 days ago.?? However??yesterday developed severe and acute onset of shortness of breath,??so??decided to come to [facility] for evaluation.?? She has since been started on??all her blood pressure medications??and is currently on a??nitroglycerin drip.?? On evaluation, the patient is afebrile and hemodynamically normal, but continues on the??nitroglycerin drip. ??She states that her breathing is??better. ??Denies fevers, chills, nausea, vomiting,??current shortness of breath or chest pain.?? She currently denies any pain in herlower extremities.?? She does not have any focal neurological deficits. Review of Systems As above, all otherwise negative Physical Exam Vitals & Measurements T:??98.6?F?? HR:??76??(Monitored)?? RR:??15?? BP:??134/61?? SpO2:??96%?? HT:??168??cm?? WT:??78.2??kg?? BMI:??27.71? General: No acute distress, alert, awake, friendly and conversant Eyes: Conjunctiva pink, pupils equally round, and reactive to light, extraocular movements intact Ear/Nose/Throat: Mucous membranes moist, trachea midline, no neck swelling Cardiac: Regular rate and rhythm, no murmurs/rubs/gallops Pulmonary: Nonlabored breathing on room air, no crackles or wheezes Abdomen: Soft, non distended, nontender to palpation, no palpable masses or hernias, no guarding orrebound tenderness Extremities: No peripheral edema, no calf tenderness, warm and well perfused, sensation and motor intact Neuro: Alert and oriented x3, moving all 4 extremities spontaneously Psych: Appropriate and full affect Skin: No rashes? Vascular: Palpable left brachial pulse Assessment/Plan Farzana Hamm 69F??PMH HTN, CKD, renal artery stenosis, R??carotid artery stenosis status post right carotid endarterectomy on 07/30/[address] Gill, and history of DVT not on anticoagulation whopresents to [facility]??with shortness of breath,??and was found to??have new??flash pulmonary edema??well as hypertensive??urgency with systolics??in the 200s,??concerning for Hanna??syndrome in the setting of??renal artery stenosis.?? Vascular surgery was consulted for??any recommendations??regarding??treatment options for??her renal artery stenosis.?? The patient was initiallyplanned for an aortic endarterectomy??and aortobifemoral bypass??to??help with the??extensive??juxta mesenteric and juxtarenal??aortoiliac disease??as well as her??claudication symptoms.?? However??given her??symptoms, comorbidities??and clinical picture,??she??is??at a high risk??for??this??extensive procedure.?? Another option would be to??stent her??renal artery and SMA endovascularly,??and then perform possibly an??axillary to femoral bypass??to help??with??inflow to her lower extremities. ??We have discussed this with the patient,??and??at this point we will proceed with??the endovascular option this admission to??improve flow through her renal artery and SMA.?? We will find time??on the??OR schedule??this week??for this procedure.?? Vascular surgery will continue to follow. ?? Recommendations -No acute/emergent surgical intervention planned -Angiogram,??placement of renal artery and SMA stents, timing TBD during??this admission -Continued plans per primary team ?Please page Vascular surgery with any questions or concerns #[id number] ?Case and plan discussed with??Dr. Gill Problem List/Past Medical History Ongoing Carotid stenosis CKD (chronic kidney disease) Claudication of lower extremity Renal artery stenosis Procedure/Surgical History Endarterectomy Carotid, Right: 07/30/24 Home Medications Acetaminophen: 975 mg, By Mouth, Every 6 hours, PRN (Pain , Mild) Albuterol: 8 Gm, 0 Refill(s), INHALE 2 PUFFS BY MOUTH EVERY 4 TO 6 HOURS NEEDED FOR WHEEZING Albuterol/Ipratropium: 3 mL, Neb, 2 times a day aliskiren: 300 mg = 1 tablet, By Mouth, Daily Amlodipine: 10 mg = 1 tablet, By Mouth, Daily Aspirin: 81 mg = 1 capsule, By Mouth, Every 24 hours Atenolol: 50 mg = 1 tablet, By Mouth, 2 times a day Budesonide: 0.25 mg = 2 mL, 2 times a day BuPROpion: 200 mg = 1 tablet, By Mouth, Daily in AM Clonidine: 0.2 mg = 1 tablet, By Mouth, 2 times a day Docusate: 100 mg = 1 capsule, By Mouth, 2 times a day Gabapentin: 1,200 mg = 2 tablet, By Mouth, Daily at bedtime hydrALAZINE: By Mouth, 3 times a day Levothyroxine: 75 mcg = 1 tablet, By Mouth, Daily Lorazepam: 0.5 mg = 1 tablet, By Mouth, Daily at bedtime, PRN (as needed for anxiety) Omeprazole: 20 mg = 1 capsule, By Mouth, 2 times a day Rosuvastatin: 10 mg = 1 tablet, By Mouth, Daily Sertraline: 100 mg = 1 tablet, By Mouth, Daily Allergies codeine??(GI upset) Social History Tobacco Use: Former smoker, quit more than 30 days ago. Family History No family history recorded. Lab Results Labs Last 24 Hours CHEM GENERAL ? Event Name?? Event Result?? Date/Time?? Sodium 138 mmol/L 08/03/24 02:48:00 Chloride 104 mmol/L 08/03/24 02:48:00 Bicarbonate Level 23 mmol/L 08/03/24 02:48:00 Anion Gap 11 mmol/L 08/03/24 02:48:00 Creatinine-Blood 1.3 mg/dL??High 08/03/24 02:48:00 Magnesium 1.7 mg/dL 08/03/24 02:48:00 ? * Jairo ARRIOLA, Derek Morrow: PERFORM Event Display: Consultation Note Authored Date: Agreed patient seen and examined. ??I discussed with patient as well as her daughter Sarah over thephone.?? It is not clear to me given her??current??cardiopulmonary dysfunction??intermittent??that she would be a very good candidate for the planned open retroperitoneal aortic surgery.?? It may be a little bit too much in terms of potential cardiopulmonary morbidity.?? Therefore I recommended that we proceed instead with an attempt at??percutaneous revascularization of the renal artery and SMA??I think this may be able to be done through??left brachial approach.?? This??if we can adequately??r evascularized at least the right renal artery??this may??help in preventing these episodes of flashpulmonary edema. We would need to??address??the lower extremity symptoms??at a later date??potentially with extra anatomical bypass. * Zane REYES, Nabila Ojeda: PERFORM Event Display: Consultation Note Authored Date: [id number] Patient: ??FARZANA HAMM ? Age:??69 Years?Sex:??Female?:??1955?? Chief Complaint/Reason for Consultation HTN History of Present Illness 69-year-old female with a past medical history hypertension, CKD, solitary kidney, renal artery stenosis carotid artery stenosis status post right carotid endarterectomy on 07/30/2024, DVT not on anticoagulation pending aortobifemoral bypass presents with shortness of breath. ?? The patient reports being short of breath for the past several days, reported trying home albuterolwithout improvement and was noted to be hypoxic to the 80s by EMS. She was placed on 15 L nonrebreather with improvement in saturation. While in the ED, she was briefly placed on Cpap with improvement of her oxygen saturation to 98%. blood pressure 212/86 with normal heart rate. Lab work without leukocytosis Hgb 9.5, platelet 114.?? Creatinine 1.11.?? No significant electrolyte abnormality.?? proBNP 11,037, troponin flat at 11 and 10 respectively.?? Influenza A, B, RSV and COVID-19 were negative by PCR.?? D-dimer elevated at 2.23.?? Chest x-ray showed interstitial pulmonary edema and pleural effusions.?? CT angio of the chest showed no evidence of pulmonary embolism.?? Bilateral moderate pleural effusions and mild interstitial edema.?? Patient was continued on CPAP, and sublingual nitroglycerin followed by nitroglycerin drip and given 20 mg IV Lasix.?? Patient was admitted for further management of??flash pulmonary edema. ?? When I saw the patient she was feeling much better, off CPAP and on nasal cannula. She tells me that she is followed by Dr. Millard and recently had her Aliskiren dosage increased from 150 mg daily to 300 mg daily with improvement of her blood pressures. Initially when I first saw the patient bp remained in the systolic 170's after taking all of her medications bp's improved to 120's. Review of Systems A full review of systems was completed and is otherwise negative except as mentioned in history of present illness. Objective Measurements?? Height: 168 cm (08/02/24) Weight: 78.2 kg (08/02/24) Dry Weight: 78.5 kg (08/02/24) Body Mass Index:??27.71 kg/m2??High (08/02/24) ? Vital Signs?? Temperature: 98.6 DegF (08/03/24 15:00:00) Temperature Route: Oral (08/03/24 15:00:00) Pulse Rate: 74 bpm (08/03/24 09:01:00) Heart Rate Monitored: 75 bpm (08/03/24 16:00:10) Respiratory Rate:??15 br/min??Low (08/03/24 16:00:10) Vented: No (08/03/24 16:00:00) Systolic Blood Pressure:??156 mm Hg??High (08/03/24 15:56:00) Diastolic Blood Pressure:??51 mm Hg??Low (08/03/24 15:56:00) Blood pressure sites: Arm, right (08/03/24 12:00:00) Mean Arterial Pressure: 138 mm Hg (08/02/24 22:48:00) Pulse Pressure: 44 mm Hg (08/03/24 14:00:00) Oxygen Saturation:??91 %??Low (08/03/24 16:00:10) Liters per Minute: 2 L/min (08/03/24 13:00:00) Mode of Delivery (Oxygen): Other: rojo (08/03/24 16:00:00) FiO2: 30 % (08/03/24 06:00:00) Early Warning Score: 5 (08/03/24 16:31:12) ? Physical Exam General: well appearing, in no acute distress Respiratory: Bilateral chest rise Extremities: No lower extremity edema.?? Neuro: Alert and oriented Assessment/Plan 69-year-old female with a past medical history hypertension, CKD, renal artery stenosis carotid artery stenosis status post right carotid endarterectomy on 07/30/2024, DVT not on anticoagulation pending aortobifemoral bypass presents with shortness of breath, found to be in flash pulm edema and hypertensive urgency. nephrology consulted for bp management. ?? Hypertensive urgency: History of solitary kidney follows Dr. Millard at [facility] pt with blood pressure fluctuations improved with recent increase in Aliskiren from 150 mg to 300 mg and increased hydralazine ?? CKD: Baseline creatinine ~1.0 presented with creatinine level of 1.30 ?? Plan: Continue home amlodipine 10 mg daily Continue clonidine 0.2 mg twice daily Changed??home atenolol 50 to carvedilol??12.5 mg BID per primary team Continue with Aliskiren 300 mg daily Continue with increased dose of home hydralazine to 100??mg TID??per primary team monitor I+O daily electrolytes and renal function ?? Thank you for the courtesy of this consult, RTANE ??will continue monitoring the patient along with you please do not hesitate to call us with any further questions ?? Nabila Degroot NP [facility]?? Available by [facility] Discussed with ?Paramasivam ? Histories Allergies Allergies ?(Active and Proposed Allergies Only) codeine? (Severity: Unknown severity, Onset: Unknown) ?Reactions: GI upset ? Past Medical History/Problem List Active Problems(4) Carotid stenosis CKD (chronic kidney disease) Claudication of lower extremity Renal artery stenosis ? Past Surgical History Endarterectomy Carotid, Right: 07/30/24 ? Social History Tobacco Details:??Use: Former smoker, quit more than 30 days ago. ? Family History No Family History documented. ? Medications Home Medications Acetaminophen (Tylenol 325 mg oral tablet)??975 Milligram By Mouth Every 6 hours as needed Pain , Mild Albuterol (Albuterol (Eqv-ProAir HFA) 90 mcg/inh inhalation aerosol)??8 Gm, 0 Refill(s), INHALE 2 PUFFS BY MOUTH EVERY 4 TO 6 HOURS NEEDED FOR WHEEZING Albuterol/Ipratropium (albuterol-ipratropium 3 mg-0.5 mg/3 ml inhalation solution)??3 Milliliter Neb 2 times a day aliskiren (aliskiren 300 mg oral tablet)??1 tab(s) 300 Milligram By Mouth Daily Amlodipine (amLODIPine 10 mg oral tablet)??1 tab(s) 10 Milligram By Mouth Daily Aspirin (aspirin 81 mg oral capsule)??1 capsule 81 Milligram By Mouth Every 24 hours Atenolol (atenolol 50 mg oral tablet)??50 Milligram 1 tablet By Mouth 2 times a day Budesonide (budesonide 0.25 mg/2 mL inhalation suspension)??0.25 Milligram 2 times a day BuPROpion (buPROPion 200 mg/12 hours (SR) oral tablet, extended release)??1 tab(s) 200 Milligram ByMouth Daily in AM Clonidine (cloNIDine 0.2 mg oral tablet)??0.2 Milligram 1 tablet By Mouth 2 times a day Docusate (docusate sodium 100 mg oral capsule)??1 capsule 100 Milligram By Mouth 2 times a day Gabapentin (gabapentin 600 mg oral tablet)??2 tab(s) 1,200 Milligram By Mouth Daily at bedtime hydrALAZINE (hydrALAZINE 50 mg oral tablet)??By Mouth 3 times a day Levothyroxine (levothyroxine 75 mcg (0.075 mg) oral tablet)??1 tab(s) 75 Microgram By Mouth Daily Lorazepam (LORazepam 0.5 mg oral tablet)??1 tab(s) 0.5 Milligram By Mouth Daily at bedtime as needed as needed for anxiety Omeprazole (omeprazole 20 mg oral enteric coated capsule)??1 capsule 20 Milligram By Mouth 2 times a day Rosuvastatin (rosuvastatin 10 mg oral tablet)??1 tab(s) 10 Milligram By Mouth Daily Sertraline (sertraline 100 mg oral tablet)??1 tab(s) 100 Milligram By Mouth Daily ? Inpatient Medications Medications (25) Active SCHEDULED: (13) Amlodipine 10 mg Tablet (amLODIPine 10 mg oral tablet) ??10 mg, By Mouth, Daily Aspirin 81 mg Chew Tablet (aspirin 81 mg oral tablet, chewable) ??81 mg, By Mouth, Daily Budesonide 0.25 mg/2 mL Inhalation Susp (Pulmicort Inhalation Suspension) ??0.25 mg 2 mL, BAND Nebulizer, 2 times a day BuPROPion 100 mg SR Tablet (BuPROpion SR Tablet) ??200 mg, By Mouth, Daily in AM Carvedilol 25 mg Tablet (carvedilol 12.5 mg oral tablet) ??25 mg, By Mouth, 2 times a day Clonidine 0.1 mg Tablet (cloNIDine 0.1 mg oral tablet) ??0.2 mg, By Mouth, 2 times a day Gabapentin 300 mg Capsule (gabapentin 300 mg oral capsule) ??600 mg, By Mouth, 2 times a day hydrALAZINE 25 mg Tablet (hydrALAZINE 25 mg oral tablet) ??100 mg, By Mouth, 3 times a day Levothyroxine 75 mcg Tablet (levothyroxine 0.075 mg oral tablet) ??75 mcg, By Mouth, Daily NaCl 0.9% Flush 3ml (NaCL 0.9% Flush) ??3 mL, IV Push, Every 8 hours Pantoprazole 20 mg EC Tablet (pantoprazole 20 mg oral delayed release tablet) ??20 mg, By Mouth, 2 times a day Rosuvastatin 5 mg Tablet (rosuvastatin 5 mg oral tablet) ??10 mg, By Mouth, Daily Sertraline 50 mg Tablet (sertraline 50 mg oral tablet) ??100 mg, By Mouth, Daily CONTINUOUS: (1) Nitroglycerin 100 mg Cont IV 100 mg (Nitroglycerin 100 mg/250 mL D5W 100 mg) ??100 mg 250 mL, IV Infusion PRN: (11) Acetaminophen 325 mg Tablet (Acetaminophen Tablet) ??650 mg, By Mouth, Every 4 hours Albuterol/Ipratropium Inhalation Joaquina 3mL (Duoneb Inhalation Solution) ??1 vials, BAND Nebulizer, Every 4 hours Dextromethorphan-Guaifenesin 20 mg-200 mg/10 mL Liqu UD (Robitussin DM Liquid) ??10 mL, By Mouth, Every 4 hours Docusate Sodium 100 mg Capsule (Docusate Sodium Capsule) ??100 mg 1 capsule, By Mouth, 2 times a day Lorazepam 0.5 mg Tablet (LORazepam 0.5 mg oral tablet) ??0.5 mg, By Mouth, Daily at bedtime Melatonin 3 mg Tablet (Melatonin Tablet) ??3 mg, By Mouth, Daily at bedtime NaCl 0.9% Flush 3ml (NaCL 0.9% Flush) ??3 mL, IV Push, Every 8 hours OxyCODONE 5 mg IR Tablet (oxyCODONE 5 mg oral tablet) ??2.5 mg, By Mouth, Every 6 hours Polyethylene Glycol 17 Gm Powder (MiraLax Powder) ??17 Gm 1 pack/packet, By Mouth, Daily Senna Tablet ??8.6 mg 1 tablet, By Mouth, 2 times a day Simethicone 80 mg Chewable Tablet (Simethicone Tablet) ??80 mg, Chew, 3 times a day ? Results Recent Labs BLOOD COUNT & DIFF WBC 8.6 k/mm3 ()?? 08/02/2024 14:44 RBC 2.82 m/mm3 (Low)?? 08/02/2024 14:44 Hgb 9.5 Gm/dL (Low)?? 08/02/2024 14:44 Hct 29.8 % (Low)?? 08/02/2024 14:44 MCV 105.7 femtoliters (High)?? 08/02/2024 14:44 MCH 33.7 pg ()?? 08/02/2024 14:44 MCHC 31.9 Gm/dL (Low)?? 08/02/2024 14:44 Platelet Count 114 k/mm3 (Low)?? 08/02/2024 14:44 RDW-SD 63.8 femtoliters (High)?? 08/02/2024 14:44 MPV 10.6 femtoliters ()?? 08/02/2024 14:44 Nucleated RBC (Automated) 0.0 #/100 WBC'S ()?? 08/02/2024 14:44 Abs. NRBC 0.0 k/mm3 ()?? 08/02/2024 14:44 Abs. Neut 7.0 k/mm3 ()?? 08/02/2024 14:44 Abs. Lymph 0.6 k/mm3 (Low)?? 08/02/2024 14:44 Abs. [place] 0.7 k/mm3 ()?? 08/02/2024 14:44 Abs. Eo 0.2 k/mm3 ()?? 08/02/2024 14:44 Abs. Baso 0.0 k/mm3 ()?? 08/02/2024 14:44 Neut % 81.5 % (High)?? 08/02/2024 14:44 Lymph % 6.9 % (Low)?? 08/02/2024 14:44 [place] % 7.6 % ()?? 08/02/2024 14:44 Eos % 2.5 % ()?? 08/02/2024 14:44 Baso % 0.3 % ()?? 08/02/2024 14:44 Imm Gran 1.2 % ()?? 08/02/2024 14:44 Abs. Imm Gran 0.1 k/mm3 ()?? 08/02/2024 14:44 ?? CARDIAC Nt-Probnp 51062 pg/mL (High)?? 08/02/2024 14:45 High Sensitivity Troponin (HSTnT) 10 ng/L ()?? 08/02/2024 18:57 ?? CHEM GENERAL Sodium 138 mmol/L ()?? 08/03/2024 02:48 Potassium 4.3 mmol/L ()?? 08/03/2024 02:48 Chloride 104 mmol/L ()?? 08/03/2024 02:48 Bicarbonate Level 23 mmol/L ()?? 08/03/2024 02:48 Anion Gap 11 mmol/L ()?? 08/03/2024 02:48 Glucose Level 116 mg/dL (High)?? 08/02/2024 14:45 Glucose, POC 105 mg/dL (High)?? 08/02/2024 14:27 BUN 22 mg/dL ()?? 08/02/2024 14:45 Creatinine-Blood 1.30 mg/dL (High)?? 08/03/2024 02:48 Estimated GFR Creatinine 45 ML/MIN/1.73 M2 ()?? 08/03/2024 02:48 Calcium 8.8 mg/dL ()?? 08/02/2024 14:45 Magnesium 1.7 mg/dL ()?? 08/03/2024 02:48 Protein, Total 7.5 Gm/dL ()?? 08/02/2024 14:45 Albumin 4.1 Gm/dL ()?? 08/02/2024 14:45 AG Ratio 1.2 ()?? 08/02/2024 14:45 Alkaline Phosphatase 100 units/L ()?? 08/02/2024 14:45 AST (SGOT) 26 units/L ()?? 08/02/2024 14:45 ALT (SGPT) 11 units/L ()?? 08/02/2024 14:45 Bilirubin, Total 0.8 mg/dL ()?? 08/02/2024 14:45 ?? COAG D-Dimer 2.23 mg/L FEU (High)?? 08/02/2024 14:44 ?? URINE OTHER Est Creatinine Clearance 39.53 mL/min ()?? 08/03/2024 04:06 ?? VIROLOGY Influenza A PCR NEGATIVE ()?? 08/02/2024 14:27 Influenza B PCR NEGATIVE ()?? 08/02/2024 14:27 RSV PCR NEGATIVE ()?? 08/02/2024 14:27 COVID-19 PCR Specimen Source NASAL ()?? 08/02/2024 14:27 COVID-19 PCR Result NEGATIVE ()?? 08/02/2024 14:27 ? Abnormal Labs ?? CARDIAC High Sensitivity Troponin (HSTnT)?10 ng/L () ?08/02/2024 18:57 ?? CHEM GENERAL Creatinine-Blood?1.30 mg/dL (High)?08/03/2024 02:48 Estimated GFR Creatinine?45 ML/MIN/1.73 M2 ()?08/03/2024 02:48 ?? Note: Critical results are displayed in red. ? CBC, CBC w/Diff?? No qualifying data available. ?? BMP, Mg, and Phos Anion Gap: 11 mmol/L (02:48) Bicarbonate Level: 23 mmol/L (02:48) Chloride: 104 mmol/L (02:48) Creatinine-Blood:??1.3 mg/dL??High (02:48) Estimated GFR Creatinine: 45 ML/MIN/1.73 M2 (02:48) Magnesium: 1.7 mg/dL (02:48) Potassium: 4.3 mmol/L (02:48) Sodium: 138 mmol/L (02:48) ?? Coagulation Profile?? No qualifying data available. ?? LFT?? No qualifying data available. ?? Urinalysis Est Creatinine Clearance: 39.53 mL/min (04:06) ?? Microbiology ?? COVID-19, RSV, and Flu A/B, Rapid PCR?? Completed?? Source: Nasal Body Site: Nose Collected Dt/Tm: 08/02/2024 14:34 Last Updated Dt/Tm: 08/02/2024 15:48 ? Cardiology Labs Nt-Probnp:??84311 pg/mL??High (08/02/24 14:45:00) High Sensitivity Troponin (HSTnT): 10 ng/L (08/02/24 18:57:00) High Sensitivity Troponin (HSTnT): 11 ng/L (08/02/24 14:45:00) ? * Ashley ARRIOLA, Markos: PERFORM Event Display: Consultation Note Authored Date: [id number] Chart reviewed . Patient evaluated ??I have discussed the case , its management with the??PA on rounds on the date of??service. Agree with the findings and plan we developed together in the PA???s note detailed??below ? discussed with vasvular surgery reg intervention for the JUSTYN??due to??admit for Hanna syndrome Patient Care team information Care Team Personnel Name: Cuong Gallardo RN Position: S RN Member Role: Primary Care Nurse Name: Lali Casey RN Position: S RN Member Role: Primary Care Nurse Name: Garret Suárez NP Position: S Outreach Member Role: PCP Address: [address] [place] [address]- [employer]: Name: Markos Ramirez MD Position: [facility] Renal MD Member Role: Lifetime Consulting Physician Address: [address] [facility] [place] [address]- [employer]: Name: Blanca Jones RN Position: S RN Member Role: Primary Care Nurse Name: Tan Ma RN Position: S RN Member Role: Primary Care Nurse Care Team Related Persons Name: GARRET HAMM Insurance Providers Guarantor name: FARZANA POLI Health Plan Information #: 2 Payer: MEDICARE PART B OUTPT Member Number: [id number] Policy Number: NA Group Number: NA Health Plan Information #: 3 Payer: MEDEX Member Number: [id number] Policy Number: NA Group Number: [id number] Health Plan Information #: 4 Payer: MEDEX Member Number: [id number] Policy Number: NA Group Number: NA Health Plan Information #: 1 Payer: MEDICARE A INPT 25 Member Number: [id number] Policy Number: NA Group Number: NA
--- OUTSIDE RECORDS SUMMARY | 2024-08-21 13:42 | XMS_ITS | Continuity of Care Document ---
Author Organization [facility] Address [address] [place] [address]- Care Team Providers Care Manager Molecular Name Role Phone Garret Suárez NP Primary Care Physician [place] [facility] [place]): [place]24 [facility] [address], [place] [address] Attending Physician: Derek Gill MD Admitting Physician: Derek Gill MD Referring Physician: Garret Suárez NP Encounter Type: Pre Office Visit Allergies, Adverse Reactions, Alerts Substance [...] Refills, Maintenance, 07/31/24 12:47:00 PM EST, Capsule, [id number], Partial fill upon patient request if the prescription is for a schedule II opioid drug., 168, cm, 07/31/24 12:03:00 EST, Height, 79, kg, 07/30/24 17:04:00 EST, Dry Weight Start Date: 07/31/24 Status: Ordered Quantity: 20.0 Unit: capsule Repeat number: 1 gabapentin 600 mg oral [...] 0 Refills, Maintenance, 08/06/24 10:26:00 AM EST, [facility], Partial fill upon patient request if the prescription is for a schedule II opioid drug., 168, cm, 08/06/24 7:45:00 EST, Height, 78.5, kg, 08/02/24 22:48:00 EST, Dry Weight Start Date: 08/06/24 Status: Ordered Quantity: 90.0 Unit: tablet Repeat number: 1 isosorbide mononitrate 30 mg oral tablet, extended release 1 tablet = 30 mg, By Mouth, Daily, # 30 tablet, 0 Refills, Maintenance, 08/06/24 10:23:00 AM EST, ERTablet, [facility], Partial fill upon patient request if [...] 10:23:00 AM EST, Route to Pharmacy Electronically, [facility], Partial fill upon patient request if the prescription is for a schedule II opioid drug., 168, cm, 08/06/24 7:45:00 EST, Height, 78.5, kg, 08/02/24 22:48:00 EST, Dry Weight Start Date: 08/06/24 Status: Ordered Quantity: 30.0 Unit: tablet Repeat number: 1 omeprazole 20 mg oral enteric coated capsule 1 capsule = 20 mg, By Mouth, 2 times a day, 0 Refills, 05/05/24 4:09:00 PM EST, Partial fill upon patient request if the prescription is for a schedule II opioid drug. Start Date: 05/05/24 Status: Ordered Repeat number: 1 oxyCODONE 5 mg oral tablet 5 mg, 1, tablet, By Mouth, Every 6 hours, PRN, for 3 days, # 12 tablet, Refills 0, Tot. Refills 0, Acute 08/15/24 10:37:00 AM EST, as needed for pain, 08/12/24 10:37:00 AM EST, [facility] to [facility], [id number], Partial fill upon patient request if the prescription is for a schedule II opioid drug., 168, cm, 08/11/24 15:37:00 EST, Height, 78.5, kg, 08/02/24 22:48:00 EST,Dry Weight Start Date: 08/12/24 Stop Date: 08/15/24 Status: Ordered Quantity: 12.0 Unit: tablet Repeat number: 1 Plavix 75 mg oral tablet 75 mg, 1, tablet, By Mouth, Daily, # 90 tablet, Refills 0, Tot. Refills 0, Maintenance, 08/06/24 10:47:00 AM EST, Route to Pharmacy Electronically, [facility], Partial fill upon patient request if [...] Confirmed Active Renal artery stenosis Confirmed Active Social History Social History Type Response Smoking Status Former smoker, quit more than 30 days ago entered on: 07/21/24 Sex Sex Representation Female (finding) Patient Care team information Care Team Personnel Name: Cuong Gallardo RN Position: [facility] RN Member Role: Primary Care Nurse Name: Lali Casey RN Position: [facility] RN Member Role: Primary Care Nurse Name: Garret Suárez NP Position: [facility] Outreach Member Role: PCP Address: [address] [place] [address]- [place] Tele[employer]: Name: Markos Ramirez MD Position: [facility] Renal MD Member Role: [employer] Physician Address: [address] [facility] [place] [address]- Tele[employer]: Name: Blanca Jones RN Position: S RN Member Role: Primary Care Nurse Name: Tan Ma RN Position: S RN Member Role: Primary Care Nurse Care Team Related Persons Name: GARRET ASHTON Insurance Providers Guarantor name: FARZANA ASHTON Health Plan Information #: 2 Payer: [employer] Member Number: [id number] Policy Number: NA Group Number: NA Health Plan Information #: 1 Payer: MEDICARE PART B OUTPT Member Number: [id number] Policy Number: NA Group Number: NA
--- OUTSIDE RECORDS SUMMARY | 2024-08-21 13:42 | XMS_ITS | Continuity of Care Document ---
Author Organization [facility] ter Address [address] [place] [id number]- Care Team Providers Care Dial Mounter Name Role Phone Kamini REYESThaddeusGarret Tk Primary Care Physician [place] [facility] [place]24 - 07/31/[address] [address] Discharge Disposition: A-D/C Home Attending Physician: Derek Gill MD Admitting Physician: Derek Gill MD Referring Physician: Derek Gill MD Encounter Type: Disch IP Allergies, Adverse [...] number: 1 amLODIPine 10 mg oral tablet 10 mg, Tablet, By Mouth, 07/31/24 9:00:00 AM EST Start Date: 07/31/24 Stop Date: 07/31/24 Status: Completed Repeat number: 1 amLODIPine 10 mg oral [...] atenolol 50 mg oral tablet 50 mg, Tablet, By Mouth, 07/31/24 9:00:00 AM EST Start Date: 07/31/24 Stop Date: 07/31/24 Status: Completed Repeat number: 1 atenolol 50 mg oral [...] Refills, Maintenance, 07/31/24 12:47:00 PM EST, Capsule, [facility] #[id number], Partial fill upon patient request if the [...] oxyCODONE 5 mg oral tablet 5 mg, By Mouth, Every 4 hours, PRN, for 3 days, # 18 tablet, Refills 0, Tot. Refills 0, Acute 08/03/24 12:47:00 PM EST, Pain , Severe, 07/31/24 12:47:00 PM EST, Route to Pharmacy Electronically, [facility] #[id number], Partial fill upon patient request if the prescription is for a schedule II opioid drug., 168, cm, 07/31/24 12:03:00 EST, Height, 79, kg, 07/30/24 17:04:00 EST, Dry Weight Start Date: 07/31/24 Stop Date: 08/03/24 Status: Ordered Quantity: 18.0 Unit: tablet Repeat number: 1 oxyCODONE 5 mg oral tablet 5 mg, Tablet, By Mouth, Every 6 hours, PRN for Pain , Severe, Routine, 07/30/24 2:53:00 PM EST Start Date: 07/30/24 Stop Date: 07/31/24 Status: Discontinued Repeat number: 1 rosuvastatin 10 mg oral [...] Confirmed Active Renal artery stenosis Confirmed Active Procedures Procedure Date Related Diagnosis Body Site Status Endarterectomy Carotid, Right 07/30/24 Completed Vital Signs Most recent to oldest [Reference Range]: 1 2 3 Height 168 cm (07/31/24 12:03 PM) 168 cm (07/31/24 7:38 AM) 168 cm (07/31/24 5:50 AM) Weight 79 kg (07/30/24 5:01 PM) Oxygen Saturation [94-100 %] 94 % (07/31/24 12:03 PM) 93 % *L* (07/31/24 7:38 AM) 97 % (07/31/24 5:50 AM) Pulse Rate [55-90 bpm] 72 bpm (07/31/24 12:03 PM) 72 bpm (07/31/24 8:09 AM) 72 bpm (07/31/24 7:38 AM) Body Mass Index [18.5-24.99 kg/m2] 27.99 kg/m2 *H* (07/30/24 5:01 PM) Blood Pressure [90-138/55-84 mm Hg] 155/71mm Hg *H* (07/31/24 12: PM) 160/63mm Hg *H* (07/31/24 8:09 AM) 160/63mm Hg *H* (07/31/24 8:09 AM) Respiratory Rate [16-30 br/min] 18 br/min (07/31/24 12:03 PM) 18 br/min (07/31/24 7:38 AM) 18 br/min (07/31/24 6:49 AM) Temperature [96.8-100.4 DegF] 98.7 DegF (07/31/24 12:03 PM) 98.5 DegF (07/31/24 7:38 AM) 98.3 DegF (07/31/24 5:50 AM) Liters per Minute 2 L/min (07/31/24 5:50 AM) 2 L/min (07/31/24 12:20 AM) 2 L/min (07/30/24 8:00 PM) Mode of Delivery (Oxygen) Room air (07/31/24 12:03 PM) Room air (07/31/24 7:38 AM) Nasal cannula (07/31/24 5:50 AM) Blood pressure sites Arm, right (07/31/24 12:03 PM) Arm, right (07/31/24 7:38 AM) Arm, left (07/31/24 5:53 AM) Temperature Route Oral (07/31/24 12:03 PM) Oral (07/31/24 7:38 AM) Oral (07/31/24 5:50 AM) Dry Weight 79 kg (07/30/24 5:01 PM) 79 kg (07/30/24 9:42 AM) Weight Obtained Via Bed scale (07/30/24 5:01 PM) Dry Weight Obtained Via Standing scale (07/30/24 9:42 AM) Social History Social History Type Response Smoking Status Former smoker, quit more than 30 days ago entered on: 07/21/24 Sex Sex Representation Female (finding) Cardiology * Event Display: Stress Nuc with Regadenoson Authored Date: Please click on pdf link to open report Hospital Progress note * Maria Guadalupe Dee RN: MODIFY, SIGN, VERIFY, PERFORM, MODIFY, MODIFY Event Display: Progress Note Hospital Authored Date: Patient: FARZANA HAMM Age: 69 years Sex: Female : 1955 Associated Diagnoses: None Author: Maria Guadalupe Dee RN Findings Problem Related to Alteration in Tissue Perfusion : Alteration in Tissue Perfusion 07/31/2024 10:57 EST Alteration Tissue Perfusion related to Vascular Procedure, Vascular Surgery Goals & Outcomes: Tissue perfusion Pt will maintain optimal perfusion to vital organs, Pt will resume/maintain adequate peripheral circulation, Pt will experience improved tissue perfusion, Pt will achieve progressive healing of injured area, Pt will be hemodynamically stable, Pt will achieve no rmal/improved/optimal neuro status, Pt will return to baseline respiratory function, Pt will maintain adequate GI function appropriate for pt, Pt will maintain adequate function appropriate for pt, Pt will be discharged without infection, Pt/ S.O. will state understanding of plan of care Interventions: Tissue Perfusion Assess for s/s of infection of lines, drains, incisions, Assess/Monitor activity tolerance, Assess/Monitor cardiac dysrhythmias, Assess/Monitor CMS to affected extremity, Assess/Monitor peripheral pulses & capillary refill, Assess/Monitor presence & degree ofedema, Assess/Monitor secretions & drainage for s/s of infection, Monitor Intake & Output, Monitor labs & report variances to provider, Position for comfort BH Goals/Interventions, Tissue Perfusion Yes Tissue Perfusion, Problem Start 07/30/2024 18:18 Reviewed Plan with, Tissue Perfusion Patient Patient Progression, Tissue Perfusion Pt progressing according to plan . Narrative/Incidental Pt A/Ox4. Denies sob/cp/dizziness/n/v. VSS, bp high, vascular aware. soreness at R neck dsd, dsd issoft and cdi. npo since midnight, now tolerating oral intake w/o issues. Pt is ind. stress test done this am. after test tylenol given for 10/10 pain. Pt updated on plan of care. No other acute changes to pt condition at this time. Pt resting comfortably in bed, call sorensen within reach. Alarms on for safety. No further concerns at this time, d/c today at 1330.. * Hamzah Ragland MD: PERFORM Event Display: Progress Note Hospital Authored Date: Patient: ??FARZANA HAMM ? Age:??69 Years?Sex:??Female?:??1955?? Patient seen and examined at the bedside s/p right carotid endarterectomy with Dr. Major??on??07/30/2024.?? Procedure was well-tolerated and uncomplicated.?? Patient currently complaining of??right-sided head pain that radiates down to her neck for which she received??a one-time dose of 0.5 Dilaudid and Tylenol was increased 9 75-6.?? Patient endorses tolerating p.o., however states she is minimal hunger.?? Patient denies any voice changes, stating she does not feel hoarse. ?? Cranial nerves II through XII are grossly intact,??upper extremities motor or sensory intact.?? No hematoma appreciated??surrounding surgical and site.?? No strikethrough noted on dressing. ??Minimaltenderness to palpation brary- incisional.?? Patient on 2 L nasal cannula * Zoë Noble RN: PERFORM, SIGN, VERIFY Event Display: Progress Note Hospital Authored Date: [id number] Patient: FARZANA HAMM Age: 69 years Sex: Female : 1955 Associated Diagnoses: None Author: Real DUPREE, Zoë Findings Narrative/Incidental Pt is alert and oriented x4. Post op day 0 from a CEA that was found to be 99% occluded. Pt is NPO at midnight for stress test ordered by . Pt is able to answer all orientation questions, no facialdrooping, equal strength in grasp, pupil are equal and dilated. Pedal pulses are also present upon admission by doppler - PT and dorsalis pedis. Pts pain is being manged with tylenol and dilaudid. Dressing on the right radial from the A line that was removed proir to admission on this floor. DSD isplaced on right neck - surrounding skin is soft and tender - no apparents signs of hematoma. Plan of care is ongoing for the pt. . Radiology * Event Display: NM Myocard Perf SPECT Multi Authored Date: Myocardial Perfusion Imaging Demographics Patient Name POLI YANES Gender Female [employer] [facility] [id number] Room Number [id number] Height 66.1 inches Date of 1955 Weight 174.2 pounds Age 69 year(s) BSA 1.89 m2 Accession Number [id number] BMI 27.99 kg/m2 Date of study 07/31/2024 Resident Referring Physician Mandie Thomson MD, MD NM Technologist Dee Dee Martínez Physician Miriam Antoine Procedure Procedure Type: Myocardial Perfusion Imaging:NM Myocardial Perfusion Spect Multi Indications: Pre-op Cardiovascular exam. Risk Factors The patient risk factors include:hypertension. Stress Protocols Resting ECG Sinus rhythm. Resting HR:67 bpm Resting BP:158/76 mmHg Pre-stress physical exam: The patient's medications include Aspirin, Amlodipine, CLonidine, Crestor, Hydralzine, Duoneb, HEparin, SQ injection, Wellbutrin, Sertraline, Levothyroxine, Pantorprazole, Tylenol, Oxycodone. Stress Protocol:Pharmacologic - IV Regadenoson Dose: 0.4 mg Peak HR:85 bpm HR response: Not assessed Peak BP:158/76 mmHg (pharmacologic study) Predicted HR: 153 bpm HR recovery: Not Assessed % of predicted HR: 56 (Pharmacologic Study) BP response: Resting hypertension Reason for termination:Protocol complete with blunted response Functional capacity:Not assessed HR/BP product:30511 Time of RP Injection:00:[address] Changes:No significant ST changes Arrhythmias No arrhythmias. Stress Interpretation Pharmacologic study only. Physiologic response not assessed - pharm stress. No EKG evidence of ischemia. Imaging Protocols - One Day Rest Stress Isotope:Tc99m Sestamibi Isotope: Tc99m Sestamibi Isotope dose:11 mCi IV Isotope dose:30.2 mCi IV Date:07/31/2024 Date:07/31/2024 Time to Rest Imagin minutes Time to Stress Imagin minutes Technique: Gated Technique: Gated Supine Supine Perfusion Images Rest: +-------+---------+--------+----+---------+---------+ !Segment!Perfusion!Severity!Wall!Artifact !Artreason! +-------+---------+--------+----+---------+---------+ Stress: +-------+---------+--------+----+---------+---------+ !Segment!Perfusion!Severity!Wall!Artifact !Artreason! +-------+---------+--------+----+---------+---------+ Imaging Results Study artifacts 1) Extracardiac activity Summed scores - Summed stress score: 4 - Summed rest score: 2 - Summed difference score: 2 Rest ejection Stress ejection Ejection fraction:62 % Ejection fraction:55 % EDV :152 ml EDV :173 ml ESV :57 ml ESV :77 ml Stroke volume :95 ml Stroke volume :96 ml LV mass :152 gr LV mass :209 gr Conclusions Summary 1. Myocardial perfusion imaging is probably normal after Regadenoson stress test. Mild apparent perfusion defect in the apex , minimally worse on stress, probably artifactual or apical thinning, versus minimal ischemia. (overall slightly lower counts on stress due to extra cardiac activity) 2. LV function is normal with an E.F. of 62 % at rest and 55 % with stress with normal wall motion and thickening. 3. EKG portion of the stress test is reported separately. Signatures * Event Display: NM Myocard Perf SPECT Multi Authored Date: [id number] Note * Zo Belcher RN: PERFORM Event Display: Discharge/Transfer Note Hospital Authored Date: [id number] Nursing Discharge Note Entered On: 07/31/2024 13:31 EST Performed On: 07/31/2024 13:31 EST by Zo Belcher RN Nursing Discharge Note 2 Discharge Time : 07/31/2024 13:30 EST Discharge Level of Care at Discharge : Home/Senior Care/Foster Care Patient Left Unit Via : Wheelchair Patient Accompanied Off Unit with : Responsible adult DC Instructions Provided & Signed by Pt : Yes Patient Understands D/C Instructions : Yes Patient Instructions Discharge Signed : Yes Did Pt have Specialty Bed or Wound Vac : No Zo Belcher RN - 07/31/2024 13:31 EST * Eugene Abad NP: PERFORM, MODIFY, MODIFY Event Display: Discharge/Transfer Note Hospital Authored Date: [id number] Patient: ??FARZANA HAMM ? Age:??69 Years?Sex:??Female?:??1955?? Admit Date Admission Date: 07/30/2024 Discharge Date 07/31/24 Discharge Diagnoses Carotid stenosis, 07/31/2024 Hospital Course Farzana Hamm is a 69 year old female who presented for elective right CEA.?? Pt tolerated well and remains hemodynamically stable and neurologically intact.?? She underwent nuclear stress test 07/31 in preparation for aortic surgery.?? Pt tolerating diet without nausea or vomiting.?? Pain well contr olled.?? Pt ambulatory to baseline.?? Pt is seen as ready for discharge home 08/20/24.?? Objective/Physical Exam on Day of Discharge Vitals & Measurements T:??98.7?F?? HR:??72??(Peripheral)?? RR:??18?? BP:??155/71?? BP:??138/53(Line)?? SpO2:??94%?? HT:??168??cm?? WT:??79??kg?? BMI:??27.99?? General appearance: No apparent distress, appears stated age, well developed. Head: Normocephalic, atraumatic. Cardiac: RRR, no murmurs or gallops. Respiratory: Clear to auscultation bilaterally. Abdomen: Soft, nontender, nondistended. No guarding or rebound. No palpable mass. Incision: Right neck clean and dry, no hematoma.?? Extremities: Able to move all extremities without difficulty. Warm and well perfused. Neurologic status: Alert and oriented x 3. No focal deficits. Psych: Mood and affect normal. Vascular:??Palpable radials bilaterally.?? Assessment/Plan Discharge Planning:? Patient Discharge Condition Good Discharge Disposition Home Home Health Face to Face ^HomeHealthFTF Procedures Performed This Visit Endarterectomy Carotid, Right Inpatient Medications Medications (16) Active SCHEDULED: (13) Albuterol/Ipratropium Inhalation Joaquina 3mL (Duoneb Inhalation Solution) ??1 vials, BAND Nebulizer, 4 times a day Amlodipine 10 mg Tablet (amLODIPine 10 mg oral tablet) ??10 mg, By Mouth, Daily Aspirin 81 mg Chew Tablet (aspirin 81 mg oral tablet, chewable) ??81 mg, By Mouth, Every 24 hours Atenolol 50 mg Tablet (atenolol 50 mg oral tablet) ??50 mg, By Mouth, 2 times a day BuPROPion 100 mg SR Tablet (BuPROpion SR Tablet) ??200 mg, By Mouth, Daily in AM Clonidine 0.1 mg Tablet (cloNIDine 0.1 mg oral tablet) ??0.2 mg, By Mouth, 2 times a day Docusate Sodium 100 mg Capsule (Docusate Sodium Capsule) ??100 mg 1 capsule, By Mouth, 2 times a day Heparin 5000 units/mL Inj (1 mL) (Heparin Inj) ??5,000 units 1 mL, Subcutaneous Injection, 3 times a day hydrALAZINE 25 mg Tablet (hydrALAZINE 25 mg oral tablet) ??50 mg, By Mouth, 3 times a day Levothyroxine 75 mcg Tablet (levothyroxine 0.075 mg oral tablet) ??75 mcg, By Mouth, Daily Pantoprazole 20 mg EC Tablet (pantoprazole 20 mg oral delayed release tablet) ??20 mg, By Mouth, 2 times a day Rosuvastatin 5 mg Tablet (rosuvastatin 5 mg oral tablet) ??10 mg, By Mouth, Daily Sertraline 50 mg Tablet (sertraline 50 mg oral tablet) ??100 mg, By Mouth, Daily CONTINUOUS: (0) PRN: (3) Acetaminophen 325 mg Tablet (Tylenol 325 mg oral tablet) ??975 mg, By Mouth, Every 6 hours Bisacodyl 10 mg Suppository (Bisacodyl Supp) ??10 mg 1 supp, Rectally, Daily OxyCODONE 5 mg IR Tablet (oxyCODONE 5 mg oral tablet) ??5 mg, By Mouth, Every 6 hours Discharge Medications Acetaminophen (Tylenol 325 mg oral [...] tablet)??1 tab(s) 100 Milligram By Mouth Daily Labs Last 24 Hours No qualifying data available. * Simi DUPREE, Zo: PERFORM, MODIFY Event Display: Patient Education/Instruction Authored Date: Inpatient Adult Discharge Instructions. [place] [id number] [phone] Name: FARZANA HAMM : 1955?? Visit: 07/30/2024 09:19?? Current Date: 07/31/2024 12:17 ?? Account: [id number]?? Inpatient Adult Discharge Instructions We would like [...] and their families. Surveys are administered by [employer]. ?? If further treatment with your primary care physician or another doctor is recommended, it is important for you to keep the appointment. Call your primary care physician or return to the Emergency Department immediately if your condition worsens, fails to improve, or new symptoms develop. If you need to find a doctor, you can call [facility] for a referral at [phone] or toll free at [phone] or log in to [email or web address].. ?? [facility], in keeping with [facility] guidance, no longer requires face masks [...] a health care christophe of your choosing. [employer] is a website that allows you to securely view your medical information including your hospital discharge summary, office visit summaries, medications and follow-up visits. You can also request appointments, renew medications, and request access to your medical information using a health care christophe of your choosing, or just ask a question. You can enroll at [email or web address] or register during your next office visit. You have been discharged from [facility], Patient Care Unit: M6??. If you have any questions regarding these instructions, including results of studies pending, afteryou leave, please call us and we will be happy to assist you 14/01. [facility] Your Care Team Attending Physician Derek Gill MD?? Consulting Providers Derek Gill MD?? Discharging Providers Eugene Abad NP Your Diagnosis Carotid stenosis Tests Performed Below is a partial list of the tests performed during your hospitalization. You may have had other tests and procedures not included in this list. Please discuss all test results with your provider. BUN CBC Creatinine Glucose Level GLUCOSE POC Lytes POC Hemochron ACT-LR Type and Screen BUN?? CBC?? Creatinine?? Electrolytes (Lytes)?? Glucose Level?? Glucose POC?? POC ACT-LR (POC Hemochron ACT-LR)?? RBCs for Surgery?? Type and Screen?? Primary Care Provider Garret Suárez NP? Advance Directive Health Care Proxy on File Yes - Health Care Proxy Discharge Vitals Temperature: 98.7 DegF Height: 168 cm Pulse Rate: 72 bpm Weight: 79 kg Respiratory Rate: 18 br/min Body Mass Index:??27.99 kg/m2??High Systolic Blood Pressure:??155 mm Hg??High Body surface area: 1.92 Diastolic Blood Pressure: 71 mm Hg ?? Oxygen Saturation: 94 % ?? Studies Pending All studies ordered during this hospital stay have been completed unless listed below. Please discuss all pending results with your provider listed above in these instructions. ?? RBCs for Surgery?? What to do next Instructions From Your Doctor ?? Orders? 07/31/24 12:11:00 EST?? Prescriptions??, ??07/31/24 12:11:00 EST?? You Need to Schedule the Following Appointments Follow Up with??Derek Gill MD When:??Within 2 to 3 weeks Where: [address], [address] [facility] [place] [address]- Discharge Medications FARZANA HAMM :1955 Visit Date:07/30/2024 Medications: Please continue your medications until treatment is completed or stopped by your provider. Medications not listed below should be discontinued. Discuss any questions related to medications with your provider. What How Much When Instructions Next Dose New Acetaminophen (Tylenol 325 mg oral tablet) 975 Milligram Oral Every 6 hours as needed for Pain , Mild as needed New Docusate (docusate sodium 100 mg oral capsule) 1 capsule Oral Twice a day Pickup at [facility] #51290 as needed New Oxycodone (oxyCODONE 5 mg oral tablet) 5 Milligram Oral Every 4 hours as needed for Pain , Severe Duration: 3 Days Pickup at [facility] #66731 as needed Unchanged Albuterol (Albuterol (Eqv-ProAir HFA) 90 mcg/ inh inhalation aerosol) 8 Gm, 0 Refill(s), INHALE 2 PUFFS BY MOUTH EVERY 4 TO 6 HOURS NEEDED FOR WHEEZING ?? as needed Unchanged Albuterol/ Ipratropium (albuterol-ipratropium 3 mg-0.5 mg/ 3 ml inhalation solution) 3 Milliliter Nebulized inhalation Twice a day tonight at bedtime Unchanged aliskiren (aliskiren 300 mg oral tablet) 1 tab(s) Oral Daily continue home regimen Unchanged Amlodipine (amLODIPine 10 mg oral tablet) 1 tab(s) Oral Daily Tomorrow Unchanged Aspirin (aspirin 81 mg oral capsule) 1 capsule Oral Every 24 hours Tomorrow Unchanged Atenolol (atenolol 50 mg oral tablet) 1 tab(s) Oral Twice a day Tonight Unchanged Budesonide (budesonide 0.25 mg/ 2 mL inhalation suspension) 2 Milliliter Twice a day Tonight Unchanged BuPROpion (buPROPion 200 mg/ 12 hours (SR) oral tablet, extended release) 1 tab(s) Oral Daily in the morning Tomorrow Unchanged Clonidine (cloNIDine 0.2 mg oral tablet) 1 tab(s) Oral Twice a day Tonight Unchanged Gabapentin (gabapentin 600 mg oral tablet) 2 tab(s) Oral Daily at Bedtime Tonight Unchanged hydrALAZINE (hydrALAZINE 50 mg oral tablet) Oral 3 times a day Today at 3 PM Unchanged Levothyroxine (levothyroxine 75 mcg (0.075 mg) oral tablet) 1 tab(s) Oral Daily Tomorrow Unchanged Lorazepam (LORazepam 0.5 mg oral tablet) 1 tab(s) Oral Daily at Bedtime as needed for as needed for anxiety as needed Unchanged Omeprazole (omeprazole 20 mg oral enteric coated capsule) 1 capsule Oral Twice a day Tonight Unchanged Rosuvastatin (rosuvastatin 10 mg oral tablet) 1 tab(s) Oral Daily Tomorrow Unchanged Sertraline (sertraline 100 mg oral tablet) 1 tab(s) Oral Daily Tomorrow Pharmacy Information [facility][id number]: [address], [place] [phone] Prescription Given During Visit Docusate (docusate sodium 100 mg oral capsule) - 1 capsule = 100 mg, By Mouth, 2 times a day, # 20 capsule, 0 Refills, [facility][id number], [address] [place] [phone]?? Oxycodone (oxyCODONE 5 mg oral tablet) - 5 mg, By Mouth, Every 4 hours, # 18 tablet, 0 Refills, [facility][id number], [address] [place] [phone]?? Laboratory Results Below is a partial list of the most recent Laboratory test results done prior to this discharge. You may have had other tests and procedures not included in this list. Please discuss all test resultswith your provider. Est Creatinine Clearance - 47.58 mL/min (07/30/2024) RBC Available - RE (07/30/2024) RBC Unit ID - [id number] (07/30/2024) BUN (07/30/2024) ???BUN - 17 mg/dL CBC (07/30/2024) ???WBC - 6.1 k/mm3???RBC - 2.90 m/mm3???Hgb - 9.7 Gm/dL???Hct - 30.0 %???MCV - 103.4 femtoliters???MCH - 33.4 pg???MCHC - 32.3 Gm/dL???Platelet Count - 103 k/mm3???RDW-SD - 61.4 femtoliters???MPV - 10.2 femtoliters???Nucleated RBC (Automated) - 0.0 #/100 WBC'S???Abs. NRBC - 0.0 k/mm3 Creatinine (07/30/2024) ???Creatinine-Blood - 1.08 mg/dL???Estimated GFR Creatinine - 56 ML/MIN/1.73 M2 Glucose Level (07/30/2024) ???Glucose Level - 120 mg/dL GLUCOSE POC (07/30/2024) ???Glucose, POC - 119 mg/dL Lytes (07/30/2024) ???Sodium - 144 mmol/L???Potassium - 4.0 mmol/L???Chloride - 109 mmol/L???Bicarbonate Level - 20 mmol/L???Anion Gap - 15 mmol/L POC Hemochron ACT-LR (07/30/2024) ???POC ACT-LR - 170.0 seconds Type and Screen (07/30/2024) ???Blood Type - B Negative???Antibody Screen - Negative You will be contacted within 72 hours with your results. Allergies (NKA means No Known Allergies) codeine??(GI upset) Problems Active Problems??(4) Carotid stenosis?? CKD (chronic kidney disease)?? Claudication of lower extremity?? Renal artery stenosis?? Education Materials Below is the list of Educational Leaflet Providered with your Discharge Instructions. [employer] Patient Education - BVS-Vascular Activity Instructions?? [employer] Patient Education - BVS-Special Instructions?? [employer] Patient Education - BVS-Wound Care Carotid Endarterectomy?? [employer] Patient Education - BVS-Carotid Endarterectomy?? Valuables and Belongings I fully understand and agree that [facility] accepts no responsibility for all my [...] Review of Valuable and Belonging List: With patient Disposition of Belongings: Other: pre-op locker Date for Pt to Sign Valuables/Belongings: 07/30/24 10:44:00 ?? Other Discharge Information ? Pulmonary Rehab Status?? Pulmonary Rehab Discharge Status?? Respiratory Rate: 18 br/min ? Common Emergency [...] are strongly encouraged to quit. Please call [facility] at [phone] or [phone]-[facility] ([phone]) or log in to [email or web address] for referrals to smoking cessation programs. ?? 422 Suicide & Crisis Lifeline is available 14/01 if you or someone you know needs to find a reason to keep living. By calling 647 you'll be connected to a skilled, trained counselor at a crisis center in your area. INPATIENT DISCHARGE INSTRUCTIONS SIGNATURE PAGE FARZANA HAMM Location:[facility] Registration Date and Time:07/30/2024 09:19 EST Primary Care Physician: Garret Suárez NP, Attending Physician: Derek Gill MD, FARZANA HORNE, have received the above patient education materials/instructions and have verbalized understanding. If ambulance or transport services are being used I further acknowledge being given a choice of service. ?? If you need to contact me, please call me at this number: . Patient/Senior Network Security Architect Name: Patient/Senior Network Security Architect Signature: Relationship to Patient: Witness Name/Signature: Date: * Eugene Abad NP: PERFORM Event Display: Patient Education Leaflets Authored Date: [id number] [facility]-Vascular Activity Instructions ?? 63 Vascular Activity Instructions ?? -No heavy lifting >10 lbs -Increase activity as tolerated -Encourage coughing and deep breathing, use of incentive spirometer -No tub baths until incision(s) has/have healed -May shower on postop day #3 -No driving until off narcotics and cleared by Vascular Surgery ? * Eugene Abad NP: PERFORM Event Display: Patient Education Leaflets Authored Date: [id number] [facility]-Special Instructions ?? 60 Vascular Special Instructions ?? If you develop fever, chills, increased pain, nausea, vomiting, bleeding, or increased redness or pus around the wound please call the vascular surgery office at . Please take medications as prescribed and do not drive while on narcotic medications. ?? If you have any questions, please call the vascular surgery office at . ?? Please call your Primary Care Provider within 1 week for post hospital follow up and review of yourmedications. ? * Priest REYES, Eugene Heredia: PERFORM Event Display: Patient Education Leaflets Authored Date: [id number] [facility]-Wound Care Carotid Endarterectomy ?? 69 Vascular Wound Care Carotid Endarterectomy ?? May leave neck suture line open to air if not draining. If draining, please cover with dry sterile dressing to be changed daily. If there are steri strips in place they will curl up and fall off within 3-5 days. If they are still present on post op day 5, please remove. ? Patient Care team information Care Team Personnel Name: Garret Suárez NP Position: S Outreach Member Role: PCP Address: [address] [place] [address] Telecom: Care Team Related Persons Name: GARRET HAMM Insurance Providers Guarantor name: FARZANA POLI Health Plan Information #: 1 Payer: MEDICARE A INPT 25 Member Number: [id number] Policy Number: NA Group Number: NA Health Plan Information #: 2 Payer: MEDICARE PART B OUTPT Member Number: [id number] Policy Number: NA Group Number: NA Health Plan Information #: 3 Payer: MEDEX Member Number: [id number] Policy Number: NA Group Number: NA
--- OUTSIDE RECORDS SUMMARY | 2024-08-21 13:42 | XMS_ITS | Continuity of Care Document ---
Author Organization [facility] Address [address] [place] [address]- Care Team Providers Care Roof Bolter Operator Name Role Phone Garret Suárez NP Tk Primary Care Physician Encounter [facility] [place] Date(s): 07/14/24 - 08/13/24 [facility] [address] [place], [place] [address] Encounter Type: Triage Allergies, Adverse Reactions, Alerts Substance Criticality Severity [...] Refills, Maintenance, 07/31/24 12:47:00 PM EST, Capsule, [id number], Partial fill upon patient request if the [...] 0 Refills, Maintenance, 08/06/24 10:26:00 AM EST, [facility], Partial fill upon patient request if [...] Refills, Maintenance, 08/06/24 10:23:00 AM EST, ERTablet, [facility] 3, Partial fill upon patient request if [...] 10:23:00 AM EST, Route to Pharmacy Electronically, [facility], Partial fill upon patient request [...] 10:37:00 AM EST, Route to Pharmacy Electronically, [facility] #[id number], Partial fill upon patient request if the [...] 10:47:00 AM EST, Route to Pharmacy Electronically, [facility], Partial fill upon patient request [...] Team Personnel Name: Cuong Gallardo RN Position: [facility] RN Member Role: Primary Care Nurse Name: Lali Casey RN Position: [facility] RN Member Role: Primary Care Nurse Name: Garret Suárez NP Position: [facility] Outreach Member Role: PCP Address: [address] [place] [address]- Telecom: Name: Markos Ramirez MD Position: [facility] Renal MD Member Role: Lifetime Consulting Physician Address: [facility] [address] [facility] [place] [address]- [place] Telecom: Name: Blanca Jones RN Position: S RN Member Role: Primary Care Nurse Name: Tan Ma RN Position: S RN Member Role: Primary Care Nurse Care Team Related Persons Name: GARRET ASHTON Insurance Providers Guarantor name: FARZANANATACHA ASHTON Health Plan Information #: 1 Payer: MEDICARE PART B OUTPT Member Number: NA Policy Number: NA Group Number: NA Health Plan Information #: 2 Payer: MEDEX Member Number: NA Policy Number: NA Group Number: NA
--- OUTSIDE RECORDS SUMMARY | 2024-08-21 13:42 | XMS_ITS | Continuity of Care Document ---
Author Organization [facility] Address [address] [place] [address]- Care Team Providers Care Plating Machine Operator Name Role Phone Garret Suárez NP Primary Care Physician [phone] Encounter [facility] [place] Date(s): 08/11/24 - 08/18/24 [facility] [address] [place], [place] [address] Encounter Diagnosis S/P carotid endarterectomy(Discharge Diagnosis) - 08/11/24 Peripheral vascular disease(Discharge Diagnosis) - 08/11/24 Attending Physician: Leila Mendes NP Admitting Physician: Leila Mendes NP Encounter Type: Office Visit Allergies, Adverse [...] Refills, Maintenance, 07/31/24 12:47:00 PM EST, Capsule, [facility][id number], Partial fill upon patient request if the [...] 0 Refills, Maintenance, 08/06/24 10:26:00 AM EST, [facility] 3, Partial fill upon patient request [...] Refills, Maintenance, 08/06/24 10:23:00 AM EST, ERTablet, [facility] 3, Partial fill upon patient request [...] 10:23:00 AM EST, Route to Pharmacy Electronically, [facility], Partial fill upon patient request if [...] 10:47:00 AM EST, Route to Pharmacy Electronically, [facility], Partial fill upon patient request if [...] Effective Dates Health Status Clinical Service Informant S/P carotid endarterectomy Discharge Diagnosis 08/11/24 Peripheral vascular disease Discharge Diagnosis 08/11/24 Vital Signs Most recent to oldest [Reference Range]: 1 Height 168 cm (08/11/24 3:37 PM) Weight 77.27 kg (08/11/24 3:37 PM) Oxygen Saturation [94-100 %] 97 % (08/11/24 3:37 PM) Pulse Rate [55-90 bpm] 77 bpm (08/11/24 3:37 PM) Body Mass Index [18.5-24.99 kg/m2] 27.38 kg/m2 *H* (08/11/24 3:37 PM) Blood Pressure [90-138/55-84 mm Hg] 152/ 60mm Hg *H* (08/11/24 3:37 PM) Mode of Delivery (Oxygen) Room air (08/11/24 3:37 PM) Blood pressure sites Arm, left (08/11/24 3:37 PM) Weight Obtained Via Patient/family state d (08/11/24 3:37 PM) Social History Social History Type Response Smoking Status Former smoker, quit more than 30 days ago entered on: 07/21/24 Sex Sex Representation Female (finding) Note * Gabrielle Guzmán: PERFORM Event Display: Patient Education/Instruction Authored Date: [id number] Ambulatory Adult Visit Summary [address] [address] Name: FARZANA ASHTON : 1955?? Visit: 08/11/2024 15:00?? Ambulatory Visit Instructions ?? Your Care Team Primary Care Provider Garret Suárez NP? This Visit Provider Leila Mendes NP Your Diagnosis S/P carotid endarterectomy Peripheral vascular disease Urinary incontinence Vitals Signs Pulse Rate: 77 bpm Height: 168 cm Systolic Blood Pressure:??152 mm Hg??High Weight: 77.27 kg Diastolic Blood Pressure: 60 mm Hg Body Mass Index:??27.38 kg/m2??High Oxygen Saturation: 97 % Body surface area: 1.9 What to do next Scheduled Follow-Up Appointments 2024 9:30 AM EST ?? Where: [facility] [address] [address]- Status: Pending 2024 10:30 AM EST ?? Where: [facility] [address] [place] [address]- Status: Pending Saturday 4:20 PM EST ?? With: Derek Gill MD Where: [facility] [address] [address]- Status: Pending Future Orders MRI Lumbar Spine W+W/O Contrast, Routine, Reason for Exam: Other:, New urinary incontinence and lower extremity weakness, No-No Pacemaker or Neurostimulator, Can Patient Stand Alone?, Once, *Est. 08/11/24 due within 3 days, Within 3 Days CBC w/ Differential - Routine, Once, pre [...] provider. What How Much When Instructions Unchanged Acetaminophen (Tylenol 325 mg oral tablet) 975 Milligram Oral Every 6 hours as needed for Pain , Mild Unchanged Albuterol (Albuterol (Eqv-ProAir HFA) 90 mcg/ inh inhalation aerosol) 8 Gm, 0 Refill(s), INHALE 2 PUFFS BY MOUTH EVERY 4 TO 6 HOURS NEEDED FOR WHEEZING ?? Unchanged Albuterol/ Ipratropium (albuterol-ipratropium 3 mg-0.5 mg/ 3 ml inhalation solution) 3 Milliliter Nebulized inhalation Twice a day Unchanged aliskiren (aliskiren 300 mg oral tablet) 1 tab(s) Oral Daily Unchanged Aspirin (aspirin 81 mg oral capsule) 1 capsule Oral Every 24 hours Unchanged Atenolol (atenolol 50 mg oral tablet) 1 tab(s) Oral Twice a day Unchanged Budesonide (budesonide 0.25 mg/ 2 mL inhalation suspension) 2 Milliliter Twice a day Unchanged BuPROpion (buPROPion 200 mg/ 12 hours (SR) oral tablet, extended release) 1 tab(s) Oral Daily in the morning Unchanged Clonidine (cloNIDine 0.2 mg oral tablet) 1 tab(s) Oral Twice a day Unchanged Clopidogrel (Plavix 75 mg oral tablet) 1 tab(s) Oral Daily Duration: 90 Days Unchanged Docusate (docusate sodium 100 mg oral capsule) 1 capsule Oral Twice a day Unchanged Gabapentin (gabapentin 600 mg oral tablet) 2 tab(s) Oral Daily at Bedtime Unchanged hydrALAZINE (hydrALAZINE 100 mg oral tablet) 1 tab(s) Oral 3 times a day Unchanged Isosorbide Mononitrate (isosorbide mononitrate 30 mg oral tablet, extended release) 1 tab(s) Oral Daily Unchanged Levothyroxine (levothyroxine 75 mcg (0.075 mg) oral tablet) 1 tab(s) Oral Daily Unchanged Lorazepam (LORazepam 0.5 mg oral tablet) 1 tab(s) Oral Daily at Bedtime as needed for as needed for anxiety Unchanged NIFEdipine (NIFEdipine 60 mg oral tablet, extended release) 1 tab(s) Oral Daily Unchanged Omeprazole (omeprazole 20 mg oral enteric coated capsule) 1 capsule Oral Twice a day Unchanged Rosuvastatin (rosuvastatin 10 mg oral tablet) 1 tab(s) Oral Daily Unchanged Sertraline (sertraline 100 mg oral tablet) 1 tab(s) Oral Daily Medications and Immunizations Administered Medications Given During Visit No medications given during this visit.?? Allergies (NKA means No Known Allergies) codeine??(GI upset) Common Emergency Awareness Tips IS IT A [...] are strongly encouraged to quit. Please call [facility] at [phone] or [phone] ([phone]) or log in to [email or web address] for referrals to smoking cessation programs. ?? The National Suicide Prevention Hotline is available 14/01 if you or someone you know needs to find a reason to keep living. By calling 0-578-306-[employer] (6734) you'll be connected to a skilled, trained counselor at a crisis center in your area. [facility] [employer] Portal You can view and manage your care through the patient portal or by using a health care christophe of your choosing. [employer] is a website that allows you to securely view your medical information including your hospital discharge summary, office visit summaries, medications and follow-up visits. You can also request appointments, renew medications, and request access to your medical information using a health care christophe of your choosing, or just ask a question. You can enroll at [email or web address] or register during your next office visit. [facility], in keeping with [facility] guidance, no longer requires face masks [...] primary care provider, you may find a [facility] provider by calling Psychiatric at [phone]. Patient Care team information Care Team Personnel Name: Cuong Gallardo RN Position: [facility] RN Member Role: Primary Care Nurse Name: Lali Casey RN Position: [facility] RN Member Role: Primary Care Nurse Name: Garret Suárez NP Position: [facility] Outreach Member Role: PCP Address: [address] [place] [address]- [place] Telecom: Name: Markos Ramirez MD Position: [facility] Renal MD Member Role: Lifetime Consulting Physician Address: [address] [place], [place] [address] [facility] [place] [address]- [place] Telecom: Name: Blanca Jones RN Position: [facility] RN Member Role: Primary Care Nurse Name: Tan Ma RN Position: [facility] RN Member Role: Primary Care Nurse Care Team Related Persons Name: GARRET ASHTON Insurance Providers Guarantor name: FARZANA ASHTON Health Plan Information #: 1 Payer: MEDICARE PART B OUTPT Member Number: [id number] Policy Number: NA Group Number: NA Health Plan Information #: 2 Payer: MEDEX Member Number: [id number] Policy Number: NA Group Number: NA
--- OUTSIDE RECORDS SUMMARY | 2024-08-21 13:42 | XMS_ITS | Continuity of Care Document ---
Author Organization [facility] Address [address] [place] [address]- Care Team Providers Care Whiteprinting Machine Operator Name Role Phone Garret Suárez NP Tk Primary Care Physician Encounter [facility] Date(s): 07/14/24 - 08/13/24 [facility] [address] [place], [place] [address] Encounter Type: Triage Allergies, Adverse Reactions, Alerts [...] Refills, Maintenance, 07/31/24 12:47:00 PM EST, Capsule, [facility][id number], Partial fill upon patient request if the [...] 0 Refills, Maintenance, 08/06/24 10:26:00 AM EST, [facility], Partial fill upon patient request [...] Refills, Maintenance, 08/06/24 10:23:00 AM EST, ERTablet, [facility] 3, Partial fill upon patient request [...] 10:23:00 AM EST, Route to Pharmacy Electronically, [facility], Partial fill upon patient [...] 10:37:00 AM EST, Route to [facility] Electronically, [id number], Partial fill upon patient request if the [...] 10:47:00 AM EST, Route to Pharmacy Electronically, [facility], Partial fill upon patient [...] Team Personnel Name: Cuong Gallardo RN Position: [facility] RN Member Role: Primary Care Nurse Name: Lali Casey RN Position: [facility] RN Member Role: Primary Care Nurse Name: Garret Suárez NP Position: [facility] Outreach Member Role: PCP Address: [address] [place] [address]- Telecom: Name: Markos Ramirez MD Position: [facility] Renal MD Member Role: Lifetime Consulting Physician Address: [address] [facility] [address] [facility] [place] [address]- [place] Telecom: Name: Blanca Jones RN Position: S [...]
--- OUTSIDE RECORDS SUMMARY | 2024-08-21 13:42 | XMS_ITS | Continuity of Care Document ---
Author Organization [facility] Address [address] [place] [address]- Care Team Providers Care Avaya Engineer Name Role Phone Garret Suárez NP Tk Primary Care Physician Encounter [facility] Date(s): 07/14/24 - 08/13/24 [facility] [address] [place], [place] [address] Encounter Type: Triage Allergies, Adverse Reactions, Alerts [...] Refills, Maintenance, 07/31/24 12:47:00 PM EST, Capsule, [facility] #[id number], Partial fill upon patient request if the [...] 0 Refills, Maintenance, 08/06/24 10:26:00 AM EST, [facility], Partial fill upon patient request [...] Refills, Maintenance, 08/06/24 10:23:00 AM EST, ERTablet, [facility] 3, Partial fill upon patient [...] 10:23:00 AM EST, Route to Pharmacy Electronically, [facility], Partial fill upon patient [...] 10:37:00 AM EST, Route to Pharmacy Electronically, [facility] #[id number], Partial fill upon patient request if the [...] 10:47:00 AM EST, Route to Pharmacy Electronically, [facility], Partial fill upon patient [...] Team Personnel Name: Cuong Gallardo RN Position: [facility] RN Member Role: Primary Care Nurse Name: Lali Casey RN Position: [facility] RN Member Role: Primary Care Nurse Name: Garret Suárez NP Position: [facility] Outreach Member Role: PCP Address: [address] [place] [address]- Telecom: Name: Markos Ramirez MD Position: [facility] Renal MD Member Role: Lifetime Consulting Physician Address: [facility] [address] [facility] [place] [address]- [place] Telecom: Name: Blanca Jones RN Position: S [...]
== END 2024-08-21 14:15 | disposition home or self-care (01) ==
PROVIDERS: PCP Nurse Practitioner Family; Visit Provider Nurse Practitioner Family
DX: I70.1 Atherosclerosis of renal artery (principal); K55.1 Chronic vascular disorders of intestine; Z09 Encounter for follow-up examination after completed treatment for conditions other than malignant neoplasm; N18.32 Chronic kidney disease, stage 3b; K59.09 Other constipation; Z98.890 Other specified postprocedural states; Z87.09 Personal history of other diseases of the respiratory system; N39.42 Incontinence without sensory awareness; R20.2 Paresthesia of skin; R91.1 Solitary pulmonary nodule; Z91.89 Other specified personal risk factors, not elsewhere classified

== ENCOUNTER 2024-08-21 11:26 | Outpatient (REF) | payer MEDICARE, SELFPAY ==
--- NOTE | ~2024-08-21 | XR_ITS ---
EXAMINATION: XR ABDOMEN KUB CLINICAL INDICATION: K59.00 - Constipation, unspecified COMPARISON: None available. TECHNIQUE: AP view of the abdomen. FINDINGS: Moderate fecal burden seen throughout the colon with sparing of the rectum. Mild gaseous distention of the splenic flexure. No abnormal dilated small bowel. No organomegaly or large abdominal mass. No abnormal soft tissue calcification aside from vascular. Infrarenal aortic overlapping stents, with biiliac components, and an associated right renal artery stent. No focal osseous abnormality. Mild spinal SI joint, and bilateral hip joint degenerative changes. XR/XR KUB IMPRESSION: 1. Moderate constipation. No acute abnormality. 2. Vascular stents. Electronically signed by: Ricky Iverson MD 08/21/2024 02:12 PM [place]
--- OUTSIDE RECORDS SUMMARY | 2024-08-21 14:57 | XMS_ITS | Clinical Summary ---
Author Organization [facility] it Address [address] [place] [address] Care Team Providers Care Voicer Name Role Phone Constance Tarawilmer Ponce NP Primary Care Provider [phone] Surgical History Surgery Date Site/Laterality Comments OTHER SURGICAL HISTORY 04/20/2022 PROCEDURE: SC WILKES FACETECTOMY & FORAMOTOMY 1 VRT SGM [...] age to complete this topic Care Teams Voicer Relationship Specialty Start Date End Date Traa Nolasco NP [address] [place] [address] [address] [place] [address] PCP - General 06/21/22
== END 2024-08-21 11:27 | disposition home or self-care (01) ==
LOC: HO.HMGCX 11:26
PROVIDERS: PCP Nurse Practitioner Family; Visit Provider Nurse Practitioner Family
DX: Z09 Encounter for follow-up examination after completed treatment for conditions other than malignant neoplasm (principal); K59.00 Constipation, unspecified; I70.1 Atherosclerosis of renal artery; K55.1 Chronic vascular disorders of intestine; N39.42 Incontinence without sensory awareness; R20.2 Paresthesia of skin; N18.32 Chronic kidney disease, stage 3b; R91.1 Solitary pulmonary nodule; Z91.89 Other specified personal risk factors, not elsewhere classified; Z87.09 Personal history of other diseases of the respiratory system; Z98.890 Other specified postprocedural states
CPT/HCPCS: 74018; 96127; 99212

== ENCOUNTER → 2024-08-21 13:02 | Outpatient (BNV) | payer MEDICARE, SELFPAY | PROVIDERS: PCP Nurse Practitioner Family; Visit Provider Radiology Diagnostic Radiology | DX: K59.00 Constipation, unspecified (principal) | CPT/HCPCS: 74018 ==

== ENCOUNTER 2024-08-27 13:47 | Outpatient (AMB) | payer MEDICARE, SELFPAY ==
[2024-08-27 13:49] VITALS: BP 148/76; PULSE 69; O2SAT 99; BMI 25.5
--- NOTE | 2024-08-27 13:49 | HO.NEPHOV ---
Vital Signs 08/27/24 13:49 Height 5 ft 6 in Weight 158 lb BMI 25.5 BP 148/76 H Blood Pressure Location Rt brachial Position Sitting Pulse 69 Pulse Source Pulse Oximeter Pulse Oximetry (%) 99 Oxygen Delivery Method Room Air Intake Visit Reasons: Seen at [facility] 08/06/24/ [facility] Trimming Machine Set Up Operator Required: No Accompanied by: Daughter Allergies codeine Allergy (Unknown, Verified 08/27/24 13:55) Unknown Medication List - Last Reconciled 08/27/24 by Nilay Spencer MD albuterol sulfate 90 mcg/actuation 2 puffs PO Q4-6H PRN aspirin (Adult Low Dose Aspirin) 81 mg PO DAILY atenolol 50 mg PO BID 90 days budesonide 0.25 mg (2 mL) inhalation BID bupropion HCl SR 200 mg PO QAM clopidogrel mg PO DAILY gabapentin 1,200 mg PO BEDTIME ipratropium-albuterol 0.5 mg-3 mg(2.5 mg base)/3 mL 3 mL inhalation Q6H PRN isosorbide mononitrate ER mg PO DAILY levothyroxine 75 mcg PO DAILY lorazepam 0.5 mg PO BEDTIME PRN nebulizer accessories Use nebulizer q 6 hrs prn wheezing, sob, cough DX: COPD nebulizers Use nebulizer q 6 hrs prn wheezing, sob, cough DX: COPD omeprazole 20 mg PO BID oxycodone-acetaminophen 5-325 mg 1 tab PO Q6H PRN rosuvastatin 10 mg PO DAILY sertraline 100 mg PO DAILY HPI Comments Details: . Myrtle is a pleasant middle-aged woman with a history of resistant hypertension setting of severe vascular disease. She has undergone multiple stents in lower extremities and iliac arteries. She has atrophic left kidney with left renal artery stenosis. She is on multiple antihypertensive medications blood pressure is still suboptimal and hence this referral. She has underlying CKD with a serum creatinine around 1.4-1.6 mg/dL. She has a history of smoking for several years. She quit smoking about 6 months ago. She was on losartan hydrochlorothiazide. Due to hyponatremia of 130 millimoles per L hydrochlorothiazide has been discontinued recently. 03/12/24. She was given Bumex 0.25 mg half a tablet a day. She continues to feel tired. Recently creatinine is bumped up to 2.37. Home blood pressure readings were reviewed and systolic blood pressure is between 150 and 170 mm Hg. 04/02/24 Cr has improved after stopping Bumex and Losartan Home BP is elevated 07/17/24 REcently hospitalzied for bleeding gums post dental procedure BP has been sub optimal 08/27/2024. Recently hospitalized at [facility]. Underwent stenting of SMA and right renal artery. Blood pressure is significantly improved. She has been monitoring her blood pressure at home and recent readings has been rather low around 84/60. She did have some lightheadedness. 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 Arthritis of left hip Disc degeneration, lumbar Lumbar facet arthropathy Stenosis, spinal, lumbar Sacroiliac joint pain Lumbar radicular pain Rhinitis Hypothyroidism Anxiety Tachycardia Cough COPD (chronic obstructive pulmonary disease) Surgical History (Updated 08/27/24 @ 13:55 by DOMI Tineo) History of carotid endarterectomy (~07/2024) No pertinent past surgical history Social History Household Members: Children Household Members Other:: daughter Housing: House Are you a primary auto care center manager to a significant other at home: No Do you presently have visiting nurse or other home services: No 75 years or older and lives alone: No Alcohol intake: current Alcohol intake frequency: holidays/special occasions only Alcohol type: beer Patient Tobacco Use Status: Former Tobacco user Tobacco use type: Cigarette Cigarette Packs Per Day: 0 Cigarettes Per Day: 2 e-Cigarette/Vaping Use: Never Used service: No Current occupational status: retired Current occupation: right handed, retired Sexual orientation: Unable to collect Gender identity: Unable to collect Cognitive needs: No Hearing needs: No Vision needs: Yes (wears glasses to drive.) Physical Exam Vital Signs: Last Vital Signs Pulse 69 08/27/24 13:49 BP 148/76 H 08/27/24 13:49 Pulse Ox 99 08/27/24 13:49 Oxygen Delivery Method Room Air 08/27/24 13:49 BMI result Body Mass Index 25.5 Comfortable Neck supple no JVD. Lungs entry equal no rales. Heart S1-S2 heard no gallop or rub. Abdomen soft nontender. Neuro alert awake oriented. No asterixis. Extremities no edema. Results Reviewed Nephrology Results: Hgb 9.5 g/dl (12.0-16.0) L 07/21/24 WBC 5.4 X10*3/uL (4.8-10.8) 07/21/24 Plt Count 159 X10*3/uL (160-400) L 07/21/24 Sodium 141 mmol/L (135-145) 07/14/24 Potassium 3.8 mmol/L (3.3-5.1) 07/14/24 Chloride 115 mmol/L (96-108) H 07/14/24 Carbon Dioxide 20 mmol/L (22-29) L 07/14/24 BUN 35 mg/dL (9-16) H 07/14/24 Creatinine 1.22 mg/dL (0.5-1.4) 07/14/24 Calcium 8.4 mg/dL (8.4-10.2) 07/14/24 Assessment & Plan Assessment & Plan (1) Renal atrophy, left: Comment: see CKD Code(s): N26.1 - Atrophy of kidney (terminal) Category: Medical (2) CKD (chronic kidney disease) stage 3, GFR 30-59 ml/min: Comment: 08/2022 gfr 44 cr 1.23; 07/11/23 Bun 21 cr 1.63 egfr 32 stable avoid nephrotoxic agents. 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 She has atrophic left kidney with significant left renal artery stenosis. Severe stenosis of suprarenal abdominal aorta. Severe stenosis of origin of SMA. Infrarenal aortic stent. Resistant hypertension is probably due to underlying renal artery stenosis. Hyponatremia most likely due to the use of HCTZ leading to decreased free water clearance. Status post stenting of right renal artery in 08/13/2024 Creatinine has improved Keep on current medications including atenolol and isosorbide. Continue to hold Tekturna and diuretics due to low blood pressure. Since the blood pressure has been fluctuating significantly I will obtain a 24 hour ambulatory blood pressure monitoring today to better assess her overall blood pressure control. 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
--- OUTSIDE RECORDS SUMMARY | 2024-08-27 16:47 | XMS_ITS | Clinical Summary ---
Author Organization [facility] it Address [address] [place] [address] Care Team Providers Care Body Bumper Name Role Phone Constance Tarawilmer Ponce NP Primary Care Provider [phone] Surgical History Surgery Date Site/Laterality Comments OTHER [...] age to complete this topic Care Teams Body Bumper Relationship Specialty Start Date End Date Tara Nolasco NP [address] [place] [address] [address] [place] [address] PCP - General 06/21/22
== END 2024-08-27 14:13 | disposition home or self-care (01) ==
PROVIDERS: PCP Nurse Practitioner Family; Visit Provider Internal Medicine Hypertension Specialist
DX: N26.1 Atrophy of kidney (terminal) (principal); N18.32 Chronic kidney disease, stage 3b; E87.1 Hypo-osmolality and hyponatremia; I70.203 Unspecified atherosclerosis of native arteries of extremities, bilateral legs
CPT/HCPCS: 99214

== ENCOUNTER → 2024-08-27 13:47 | Outpatient (BNVA) | payer MEDICARE, SELFPAY | PROVIDERS: PCP Nurse Practitioner Family; Visit Provider Internal Medicine Hypertension Specialist | DX: I1A.0 Resistant hypertension (principal); N26.1 Atrophy of kidney (terminal); E87.1 Hypo-osmolality and hyponatremia; I70.203 Unspecified atherosclerosis of native arteries of extremities, bilateral legs; N18.32 Chronic kidney disease, stage 3b | CPT/HCPCS: 99212 ==

== ENCOUNTER 2024-09-01 13:30 | Outpatient (AMB) | payer MEDICARE, SELFPAY ==
--- NOTE | 2024-09-01 13:34 | HO.NEPHOV ---
Vital Signs 09/01/24 13:35 Height 5 ft 6 in BP 138/72 Blood Pressure Location Lt brachial Position Sitting Pulse 78 Pulse Source Pulse Oximeter Pulse Oximetry (%) 100 Oxygen Delivery Method Room Air Intake Visit Reasons: BPM results/ Conf Pricing Specialist Required: No Accompanied by: Self / Same As Patient Allergies codeine Allergy (Unknown, Verified 09/01/24 13:36) Unknown Medication List - Last Reconciled 09/01/24 by Nilay Spencer MD albuterol sulfate 90 mcg/actuation 2 puffs PO Q4-6H PRN aspirin (Adult Low Dose Aspirin) 81 mg PO DAILY atenolol 50 mg PO BID 90 days budesonide 0.25 mg (2 mL) inhalation BID bupropion HCl SR 200 mg PO QAM clopidogrel mg PO DAILY gabapentin 1,200 mg PO BEDTIME ipratropium-albuterol 0.5 mg-3 mg(2.5 mg base)/3 mL 3 mL inhalation Q6H PRN isosorbide mononitrate ER mg PO DAILY levothyroxine 75 mcg PO DAILY lorazepam 0.5 mg PO BEDTIME PRN nebulizer accessories Use nebulizer q 6 hrs prn wheezing, sob, cough DX: COPD nebulizers Use nebulizer q 6 hrs prn wheezing, sob, cough DX: COPD omeprazole 20 mg PO BID oxycodone-acetaminophen 5-325 mg 1 tab PO Q6H PRN rosuvastatin 10 mg PO DAILY sertraline 100 mg PO DAILY HPI Comments Details: . Myrtle is a pleasant middle-aged woman with a history of resistant hypertension setting of severe vascular disease. She has undergone multiple stents in lower extremities and iliac arteries. She has atrophic left kidney with left renal artery stenosis. She is on multiple antihypertensive medications blood pressure is still suboptimal and hence this referral. She has underlying CKD with a serum creatinine around 1.4-1.6 mg/dL. She has a history of smoking for several years. She quit smoking about 6 months ago. She was on losartan hydrochlorothiazide. Due to hyponatremia of 130 millimoles per L hydrochlorothiazide has been discontinued recently. 03/12/24. She was given Bumex 0.25 mg half a tablet a day. She continues to feel tired. Recently creatinine is bumped up to 2.37. Home blood pressure readings were reviewed and systolic blood pressure is between 150 and 170 mm Hg. 04/02/24 Cr has improved after stopping Bumex and Losartan Home BP is elevated 07/17/24 REcently hospitalzied for bleeding gums post dental procedure BP has been sub optimal 08/27/2024. Recently hospitalized at [facility]. Underwent stenting of SMA and right renal artery. Blood pressure is significantly improved. She has been monitoring her blood pressure at home and recent readings has been rather low around 84/60. She did have some lightheadedness. 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 Arthritis of left hip Disc degeneration, lumbar Lumbar facet arthropathy Stenosis, spinal, lumbar Sacroiliac joint pain Lumbar radicular pain Rhinitis Hypothyroidism Anxiety Tachycardia Cough COPD (chronic obstructive pulmonary disease) Surgical History History of carotid endarterectomy (~07/2024) No pertinent past surgical history Social History Household Members: Children Household Members Other:: daughter Housing: House Are you a primary eye care professional to a significant other at home: No Do you presently have visiting nurse or other home services: No 75 years or older and lives alone: No Alcohol intake: current Alcohol intake frequency: holidays/special occasions only Alcohol type: beer Patient Tobacco Use Status: Former Tobacco user Tobacco use type: Cigarette Cigarette Packs Per Day: 0 Cigarettes Per Day: 2 e-Cigarette/Vaping Use: Never Used service: No Current occupational status: retired Current occupation: right handed, retired Sexual orientation: Unable to collect Gender identity: Unable to collect Cognitive needs: No Hearing needs: No Vision needs: Yes (wears glasses to drive.) Physical Exam Vital Signs: Last Vital Signs Pulse 78 09/01/24 13:35 BP 138/72 09/01/24 13:35 Pulse Ox 100 09/01/24 13:35 Oxygen Delivery Method Room Air 09/01/24 13:35 Comfortable Neck supple no JVD. Lungs entry equal no rales. Heart S1-S2 heard no gallop or rub. Abdomen soft nontender. Neuro alert awake oriented. No asterixis. Extremities no edema. Office Procedures 24 B/P Monitor Interpretation Details: BP Sub optimal Dipping present No white coat effect CPT: 92694 24 Hour Blood Pressure Monitor Reading Procedure code (CPT) selection complete Results Reviewed Nephrology Results: Hgb 9.5 g/dl (12.0-16.0) L 07/21/24 WBC 5.4 X10*3/uL (4.8-10.8) 07/21/24 Plt Count 159 X10*3/uL (160-400) L 07/21/24 Assessment & Plan Assessment & Plan (1) Renal atrophy, left: Comment: see CKD Code(s): N26.1 - Atrophy of kidney (terminal) Category: Medical (2) CKD (chronic kidney disease) stage 3, GFR 30-59 ml/min: Comment: 08/2022 gfr 44 cr 1.23; 07/11/23 Bun 21 cr 1.63 egfr 32 stable avoid nephrotoxic agents. 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 She has atrophic left kidney with significant left renal artery stenosis. Severe stenosis of suprarenal abdominal aorta. Severe stenosis of origin of SMA. Infrarenal aortic stent. Resistant hypertension is probably due to underlying renal artery stenosis. Hyponatremia most likely due to the use of HCTZ leading to decreased free water clearance. Status post stenting of right renal artery in 08/13/2024 Creatinine has improved Keep on current medications including atenolol and isosorbide. Continue to hold Tekturna and diuretics due to low blood pressure. 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
[2024-09-01 13:35] VITALS: BP 138/72; PULSE 78; O2SAT 100
== END 2024-09-01 13:44 | disposition home or self-care (01) ==
LOC: HO.HKA 13:31
PROVIDERS: PCP Nurse Practitioner Family; Visit Provider Internal Medicine Hypertension Specialist
DX: N26.1 Atrophy of kidney (terminal) (principal); N18.32 Chronic kidney disease, stage 3b; E87.1 Hypo-osmolality and hyponatremia; I70.203 Unspecified atherosclerosis of native arteries of extremities, bilateral legs; I1A.0 Resistant hypertension
CPT/HCPCS: 93790; 99214

== ENCOUNTER → 2024-09-01 13:30 | Outpatient (BNVA) | payer MEDICARE, SELFPAY | PROVIDERS: PCP Nurse Practitioner Family; Visit Provider Internal Medicine Hypertension Specialist | DX: I12.9 Hypertensive chronic kidney disease with stage 1 through stage 4 chronic kidney disease, or unspecified chronic kidney disease (principal); N18.32 Chronic kidney disease, stage 3b; N26.1 Atrophy of kidney (terminal); I70.203 Unspecified atherosclerosis of native arteries of extremities, bilateral legs; E87.1 Hypo-osmolality and hyponatremia | CPT/HCPCS: 93786; 93788; 99212 ==

== ENCOUNTER 2024-09-15 15:09 | Outpatient (AMB) | payer MEDICARE, SELFPAY ==
--- NOTE | 2024-09-15 15:16 | HO.NEPHOV ---
Vital Signs 09/15/24 15:18 Weight 169 lb BP 114/62 Blood Pressure Location Lt brachial Position Sitting Pulse 86 Pulse Source Pulse Oximeter Pulse Oximetry (%) 97 Oxygen Delivery Method Room Air Intake Visit Reasons: Seen at [facility] Consulting Solution Director Required: No Accompanied by: Daughter Allergies codeine Allergy (Unknown, Verified 09/15/24 15:19) Unknown Medication List - Last Reconciled 09/15/24 by Nilay Spencer MD albuterol sulfate 90 mcg/actuation 2 puffs PO Q4-6H PRN aspirin (Adult Low Dose Aspirin) 81 mg PO DAILY atenolol 50 mg PO BID 90 days budesonide 0.25 mg (2 mL) inhalation BID bupropion HCl SR 200 mg PO QAM clopidogrel mg PO DAILY gabapentin 1,200 mg PO BEDTIME hydralazine 50 mg PO TID ipratropium-albuterol 0.5 mg-3 mg(2.5 mg base)/3 mL 3 mL inhalation Q6H PRN levothyroxine 75 mcg PO DAILY lorazepam 0.5 mg PO BEDTIME PRN nebulizer accessories Use nebulizer q 6 hrs prn wheezing, sob, cough DX: COPD nebulizers Use nebulizer q 6 hrs prn wheezing, sob, cough DX: COPD omeprazole 20 mg PO BID oxycodone-acetaminophen 5-325 mg 1 tab PO Q6H PRN rosuvastatin 10 mg PO DAILY sertraline 100 mg PO DAILY HPI Comments Details: . Myrtle is a pleasant middle-aged woman with a history of resistant hypertension setting of severe vascular disease. She has undergone multiple stents in lower extremities and iliac arteries. She has atrophic left kidney with left renal artery stenosis. She is on multiple antihypertensive medications blood pressure is still suboptimal and hence this referral. She has underlying CKD with a serum creatinine around 1.4-1.6 mg/dL. She has a history of smoking for several years. She quit smoking about 6 months ago. She was on losartan hydrochlorothiazide. Due to hyponatremia of 130 millimoles per L hydrochlorothiazide has been discontinued recently. 03/12/24. She was given Bumex 0.25 mg half a tablet a day. She continues to feel tired. Recently creatinine is bumped up to 2.37. Home blood pressure readings were reviewed and systolic blood pressure is between 150 and 170 mm Hg. 04/02/24 Cr has improved after stopping Bumex and Losartan Home BP is elevated 07/17/24 REcently hospitalzied for bleeding gums post dental procedure BP has been sub optimal 08/27/2024. Recently hospitalized at [facility]. Underwent stenting of SMA and right renal artery. Blood pressure is significantly improved. She has been monitoring her blood pressure at home and recent readings has been rather low around 84/60. She did have some lightheadedness. Recent creatinine was 1.05 mg/dL as of July 27 09/14/2024. Underwent vascular surgery at [facility]. She had episodes of hypotension requiring midodrine. Today she was accompanied by her daughter. She was developed significant bilateral leg edema. 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 Arthritis of left hip Disc degeneration, lumbar Lumbar facet arthropathy Stenosis, spinal, lumbar Sacroiliac joint pain Lumbar radicular pain Rhinitis Hypothyroidism Anxiety Tachycardia Cough COPD (chronic obstructive pulmonary disease) Surgical History History of carotid endarterectomy (~07/2024) No pertinent past surgical history Social History Household Members: Children Household Members Other:: daughter Housing: House Are you a primary career placement services counselor to a significant other at home: No Do you presently have visiting nurse or other home services: No Alcohol intake: current Alcohol intake frequency: holidays/special occasions only Alcohol type: beer Patient Tobacco Use Status: Former Tobacco user Tobacco use type: Cigarette Cigarette Packs Per Day: 0 Cigarettes Per Day: 2 e-Cigarette/Vaping Use: Never Used service: No Current occupational status: retired Current occupation: right handed, retired Sexual orientation: Unable to collect Gender identity: Unable to collect Cognitive needs: No Hearing needs: No Vision needs: Yes (wears glasses to drive.) Physical Exam Vital Signs: Last Vital Signs Pulse 86 09/15/24 15:18 BP 114/62 09/15/24 15:18 Pulse Ox 97 09/15/24 15:18 Oxygen Delivery Method Room Air 09/15/24 15:18 Comfortable Neck supple no JVD. Lungs entry equal no rales. Heart S1-S2 heard no gallop or rub. Abdomen soft nontender. Neuro alert awake oriented. No asterixis. Extremities 2+ edema. Results Reviewed Nephrology Results: Hgb 9.5 g/dl (12.0-16.0) L 07/21/24 WBC 5.4 X10*3/uL (4.8-10.8) 07/21/24 Plt Count 159 X10*3/uL (160-400) L 07/21/24 Assessment & Plan Assessment & Plan (1) Right renal artery stenosis: Comment: s/p stent 08/05/24 Dr Gill Code(s): I70.1 - Atherosclerosis of renal artery Category: Medical (2) Renal atrophy, left: Comment: see CKD Code(s): N26.1 - Atrophy of kidney (terminal) Category: Medical (3) CKD (chronic kidney disease) stage 3, GFR 30-59 ml/min: Comment: 08/2022 gfr 44 cr 1.23; 07/11/23 Bun 21 cr 1.63 egfr 32 stable avoid nephrotoxic agents. 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 She has atrophic left kidney with significant left renal artery stenosis. Severe stenosis of suprarenal abdominal aorta. Severe stenosis of origin of SMA. Infrarenal aortic stent. Resistant hypertension is probably due to underlying renal artery stenosis. Hyponatremia most likely due to the use of HCTZ leading to decreased free water clearance. Status post stenting of right renal artery in 08/13/2024 Creatinine has improved Keep on current medications including atenolol and isosorbide. Continue to hold Tekturna and diuretics due to low blood pressure. 09/15/2024. Bilateral leg edema. Add Lasix 20 mg p.o. daily. Stay on low-sodium diet. Resume isosorbide 30 mg p.o. daily. Continue to monitor blood pressure at home. Orders: Orders Basic Metabolic Panel 10 Days I70.1 - Atherosclerosis of renal artery Medications: New isosorbide mononitrate ER 30 mg PO DAILY 30 tabs 1RF furosemide (Lasix) 20 mg PO DAILY 30 tabs 1RF Coding Level of Care Code Est Pt Level 5 (78656) Diagnoses Right renal artery stenosis I70.1 Renal atrophy, left N26.1 Stage 3b chronic kidney disease N18.32 Chronic kidney disease stage 3 subtype: stage 3b (GFR 30-44) Hyponatremia E87.1 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 I70.203
[2024-09-15 15:18] VITALS: BP 114/62; PULSE 86; O2SAT 97
== END 2024-09-15 15:36 | disposition home or self-care (01) ==
LOC: HO.HKA 15:09
PROVIDERS: PCP Nurse Practitioner Family; Visit Provider Internal Medicine Hypertension Specialist
DX: I70.1 Atherosclerosis of renal artery (principal); N26.1 Atrophy of kidney (terminal); N18.32 Chronic kidney disease, stage 3b; E87.1 Hypo-osmolality and hyponatremia; I70.203 Unspecified atherosclerosis of native arteries of extremities, bilateral legs
CPT/HCPCS: 99215

== ENCOUNTER → 2024-09-15 15:09 | Outpatient (BNVA) | payer MEDICARE, SELFPAY | PROVIDERS: PCP Nurse Practitioner Family; Visit Provider Internal Medicine Hypertension Specialist | DX: I1A.0 Resistant hypertension (principal); N26.1 Atrophy of kidney (terminal); N18.9 Chronic kidney disease, unspecified; I70.1 Atherosclerosis of renal artery; N18.32 Chronic kidney disease, stage 3b; I70.203 Unspecified atherosclerosis of native arteries of extremities, bilateral legs; E87.1 Hypo-osmolality and hyponatremia | CPT/HCPCS: 99212 ==

== ENCOUNTER 2024-10-21 12:14 | Outpatient (AMB) | payer MEDICARE, SELFPAY ==
--- NOTE | 2024-10-21 12:18 | A.OFFPC_ITS ---
Vital Signs 3 10/21/24 12:25 Height 5 ft 6 in Weight 169 lb BMI 27.3 BP 164/80 H Blood Pressure Location Lt brachial Position Sitting Respiration 13 Pulse 76 Pulse Source Pulse Oximeter Temp 97.1 F Temp Source Oral Pulse Oximetry (%) 98 Oxygen Delivery Method Room Air Intake Visit Reasons: f/u Intake Note: Follow up and patient also need refill on meds. Financial Planner Required: No Allergies codeine Allergy (Unknown, Verified 10/21/24 13:07) Unknown Medication List - Last Reconciled 10/21/24 by Blank Rodriguez, [facility]- albuterol sulfate 90 mcg/actuation 2 puffs PO Q4-6H PRN aspirin (Adult Low Dose Aspirin) 81 mg PO DAILY atenolol 50 mg PO BID 90 days budesonide 0.25 mg (2 mL) inhalation BID bupropion HCl SR 200 mg PO QAM clopidogrel mg PO DAILY furosemide 20 mg PO DAILY gabapentin 1,200 mg PO BEDTIME hydralazine 50 mg PO TID ipratropium-albuterol 0.5 mg-3 mg(2.5 mg base)/3 mL 3 mL inhalation Q6H PRN isosorbide mononitrate ER 30 mg PO DAILY levothyroxine 75 mcg PO DAILY lorazepam 0.5 mg PO BEDTIME PRN nebulizer accessories Use nebulizer q 6 hrs prn wheezing, sob, cough DX: COPD nebulizers Use nebulizer q 6 hrs prn wheezing, sob, cough DX: COPD omeprazole 20 mg PO BID oxycodone-acetaminophen 5-325 mg 1 tab PO Q6H PRN rosuvastatin 10 mg PO DAILY sertraline 100 mg PO DAILY Tobacco use date assessed: 10/21/24 Fall risk assessment: 1 Fall in past year Last assessed Fall Risk: 10/21/24 Dental Screening Dental Screen Date: 10/21/24 Did you have a dental visit in the last 12 months?: Yes Did you have a dental problem in the last 6 months where you did not have access to dental care?: No Was dental information given to patient?: Patient has dentist HPI HPI Comments 2 History of Present Illness0 Details Raquel 69-year-old female with CKD 3 B, atrophi c L kidney with L renal artery stenosis, hypertension, arthrosclerosis bilat lower extremities with claudication,CAD, severe plaque within the abdominal aorta beginning at the level of the SMA extending across the origin the left main renal artery with severe atrophy of the left kidney, impaired fasting glucose, COPD, GERD, hypothyroidism, current smoker, DRE, MDD, hemochromatosis, multi joint osteoarthritis, allergic rhinitis, Ground glass opacity 2.[address] scan 07/2024 at [facility], repeat CT scan due in 6 months Status post appendectomy, right shoulder rotator cuff repair 2016, stenting of the mid abdominal aorta and both common iliac arteries as well as the left external iliac artery with arthrectomy and angioplasty of the left common femoral artery 08/09/2023 Dr Ruy [facility]oney [facility], Angioplasty of the left common iliac artery with stent placement, placement of a left external iliac artery stent and arthrectomy just stenosis of the left common femoral artery November 15, 2023, July 30 2024 right carotid endarterectomy, Right axillary to bi-fem bypass with PTFA graft, left femoral endarterectomy and completion angiogram with R proximal subclavian angioplasty and stenting09/03/24 Social: lives with Blank angulo Specialist Vascular Pulmonology Rheumatology Orthopedics Pain management Renal Cardiothoracic Dr [facility] Colonoscopy 2017 declined. Mammogram declined DEXA reports done once, declined further screening. Lung cancer screening program CT scan September 2021, 12/2022 Eyes reports recent eye exam done and report WNL Declined Flu shot. UTD on shingles, RSV. Advised to ask Pharm or pulm about PCV series. History of Present Illness - The patient is a 69-year-old female pr esenting with fall-related back pain. - The incident was a slip in the backyar d resulting in persistent, severe back pain that worsens with movement. - Pain remains unresolved despite Tyleno l therapy. Using heating pad. This happened on . No care until today. - No evidence of other falls, cranial im pact, or internal bleeding following the event. - Surgical history includes significant vascular operations, which were successful, done August 2024 at [facility]. Admitted 09/03/24, dc home no services 09/07/24. DC summary reviewed. - Intermittent swelling BLE has improved with diuretics. Managed by Renal along w/ BP which is greatly improved. - Hypothyroid - on levothroxine, due for labs. Needs refills. - Breathing is great; not using inhalers . - Mood stable on sertraline and bupropri on. Cont to drink occasionally. - HLD - on statin w/o side effects. - Feels appetite is back to baseline. Wt is stable. Physical Exam awake alert NAD, chronically ill appearing, however appears brighter and more herself today RRR 2/6 systolic murmur No carotid bruit, well healing R CEA scar LS dim throughout, faint exp wheeze bilat upper lobes No edema BLE, + PP, skin intact Well healing incisions to bilat groin, R anterior chest Pain w/ palp paraspinally lumbar bilat, no spinal tenderness, sit to stand causes spasms in this area, GARCIA x 4, normal strength, tone and reflexes, antalgic gait, using cane, worsening pain w/ bending forward Skin perez warm and dry Assessment and Plan 1. Fall with back pain Following a fall, the patient reports significant back pain worsened by movements. Declined imaging and Physical therapy, treat with muscle relaxants, Baclofen is initiated. APAP and supportive care. Edu on reasons to f/u or seek additional care. 2. Hypothyroidism Continue levothyroxine treatment, monitoring serum levels through upcoming labs to ensure optimal thyroid function and align dosing. Refill estrellita Peripheral artery disease Managed by Vascular w/ routine fu Edema Sustained control over swelling with furosemide; patient displays improved leg appearance. Managed by renal Anemia Check labs today Hypertension Stable managed by Renal Incidental CT finding - message sent to Dr Alvarenga as heads up as he is managing from Pulm/lung ca screening. Will need to ask pt about sleep study at next visit. This was a recommendation made upon d/c, ?? sadi syndrome. Patient Instructions - Take muscle relaxers as directed and u se heating pads for relief. - Visit [facility] for thyroid medication refill. - Attend lab appointments for blood test s as scheduled. - Monitor your pain and report if there is no relief. - Avoid alcohol when taking muscle relax ers. - Continue taking blood pressure medicat ion as prescribed. - RTO 3 mo routine fu, sooner PRN Consent Patient was informed and verbally consented to the use of an ambient scribe for clinic note documentation during this visit. Total time spent caring for the patient today was 70 minutes. This includes time spent before the visit reviewing the chart, time spent during the visit, and time spent after the visit on documentation, reviewing laboratory results, diagnostic imaging, medications, performing a medically necessary evaluation, counseling on diagnoses, care coordination, ordering appropriate tests, ordering appropriate medications, review of tests performed by other providers, reporting test results with the patient, communication with other healthcare providers. Labs today stable. Laboratory Result Units Range Interpretation Provider Comments White Blood Count 6.6 X10*3/uL (4.8-10.8) Red Blood Count 2.84 X10*6/uL (4.20-5.50) Low Hemoglobin 9.2 g/dl (12.0-16.0) Low Hematocrit 28.2 % (37.0-47.0) Low Mean Corpuscular V olume 99.3 fL (80.0-98.0) High Mean Corpuscular H emoglobin 32.4 pg (27.0-33.0) Mean Corpuscular H emoglobin Concent 32.6 g/dl (31.0-35.0) Red Cell Distribut ion Width 18.7 % (11.0-16.0) High Platelet Count 207 X10*3/uL (160-400) Delta Mean Platelet Volu me 9.4 fL (9.4-12.3) Nucleated RBC Abso lute Count (auto) 0.000 X10*3/uL (0.0-0.012) Nucleated Red Bloo d Cells % (auto) 0.0 /100WBC (0.0-0.2) Ferritin 192 ng/mL (10-250) Albumin 3.4 g/dL (3.5-5.0) Low Triglycerides Leve l 58 mg/dL (<150) Cholesterol Level 102 mg/dL (<200) LDL Cholesterol, C alculated 46 mg/dL (<100) HDL Cholesterol 45 mg/dL (>40) Vitamin B12 Level 802 pg/mL (200-900) Folate 9.0 ng/mL (> or = 4.0) Thyroid Stimulatin g Hormone (TSH) 3.62 uIU/mL (0.32-4.0) [facility] Medical History (Updated 10/21/24 @ 20:39 by Blank Rodriguez, [facility]-) Acute bacterial sinusitis Anxiety Arthritis of left hip COPD (chronic obstructive pulmonary disease) Cough Disc degeneration, lumbar History of stent insertion of renal artery (~07/2024) HTN (hypertension) Hypothyroidism Lumbar facet arthropathy Lumbar radicular pain Personal history of nicotine dependence Rhinitis Sacroiliac joint pain 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 Stenosis of right carotid artery greater than 50% Stenosis, spinal, lumbar Tachycardia Surgical History (Updated 10/21/24 @ 18:37 [facility] History of carotid endarterectomy (~07/2024) No pertinent past surgical history S/P vascular bypass (~08/2024) Social History Household Members: Children Household Members Other:: daughter Housing: House Are you a primary patient care technician to a significant other at home: No Do you presently have visiting nurse or other home services: No 75 years or older and lives alone: No Alcohol intake: current Alcohol intake frequency: holidays/special occasions only Alcohol type: beer Patient Tobacco Use Status: Former Tobacco user Tobacco use type: Cigarette Cigarette Packs Per Day: 0 Cigarettes Per Day: 2 e-Cigarette/Vaping Use: Never Used service: No Current occupational status: retired Current occupation: right handed, retired Sexual orientation: Unable to collect Gender identity: Unable to collect Cognitive needs: No Hearing needs: No Vision needs: Yes (wears glasses to drive.) Questionnaire Thrive Questionnaire Date Thrive assessed: 07/21/24 I am a: Patient What is your living situation today?: I have a steady place to live Within the past 12 months, did the food you bought not last and you didn't have the money to get more?: Never true Within the past 12 months, did you worry whether your food would run out before you got money to buy more?: Never true Do you have trouble paying for medicines?: No Do you have trouble getting transportation to medical appointments?: No Do you have trouble paying your heating and electricity bill?: No Do you have trouble taking care of your child, family member or friend?: No Do you have trouble with day-to-day activities such as bathing, preparing meals, shopping, managing finances, etc.?: No Are you currently unemployed and looking for a job?: No Are you interested in more education?: No Please select the resources that you would like help with: None Currently or been in a relationship where the following occur: No concerns reported THRIVE Score: 0 DRE-7 AMB Questionnaire DRE-7 Date DRE - 7 assessed: 07/21/24 Source: Developed by Drs. Jayy Nguyễn, Stephy Coyle, Luis Walker and colleagues, with an educational tino from [email or web address]. Physical exam (Primary Care) Vital Signs: Last Vital Signs Temp 97.1 F 10/21/24 12:25 Pulse 76 10/21/24 12:25 Resp 13 10/21/24 12:25 BP 164/80 H 10/21/24 12:25 Pulse Ox 98 10/21/24 12:25 Oxygen Delivery Method Room Air 10/21/24 12:25 BMI result Body Mass Index 27.3 Tobacco/Smoking Status: Tobacco use Status Tobacco use date assessed 10/21/24 10/21/24 12:23 Patient Tobacco Use Status Former Tobacco user 10/21/24 12:19 Tobacco use type Cigarette 10/21/24 12:19 e-Cigarette/Vaping Use Never Used 10/21/24 12:19 Thrive Assessment: Date of Thrive Assessment Date Thrive assessed 07/21/24 10/21/24 12:19 Currently or been in a relationship where the following occur: No concerns reported Coding Level of Care Code Est Pt Level 5 (42544) Complex EM visit Add On G2211 Diagnoses Hospital discharge follow-up Z09 Fall, initial encounter W19.XXXA Encounter type: initial encounter Acute bilateral low back pain without sciatica M54.50 Back pain location: low back pain Chronicity: acute Back pain laterality: bilateral Sciatica presence: without sciatica Acquired hypothyroidism E03.9 Hypothyroidism type: acquired Stage 3b chronic kidney disease N18.32 Chronic kidney disease stage 3 subtype: stage 3b (GFR 30-44) Atherosclerosis of [place] artery of both lower extremities with intermittent claudication I70.213 Laterality: bilateral Peripheral atherosclerosis artery type: [place] artery Peripheral atherosclerosis clinical manifestation: with intermittent claudication Coronary artery disease involving [place] coronary artery of [place] heart without angina pectoris I25.10 Associated angina: without angina [place] vs. transplanted heart: [place] heart At risk for malnutrition Z91.89 Panlobular emphysema J43.1 COPD type: emphysema Emphysema type: panlobular DRE (generalized anxiety disorder) F41.1 Mild episode of recurrent major depressive disorder F33.0 Major depression episode severity: mild Nodule of apex of right lung R91.1 Secondary hyperparathyroidism (of renal origin) N25.81 Chronic anemia D64.9 CPT Codes [facility] OUTPT/OFFICE VIS - G2212 Assessment & Plan Assessment & Plan (1) Hospital discharge follow-up: Code(s): Z09 - Encounter for follow-up examination after completed treatment for conditions other than malignant neoplasm Category: Medical (2) Fall: Code(s): W19.XXXA - Unspecified fall, initial encounter Qualifiers: Encounter type: initial encounter Qualified Code(s): W19.XXXA - Unspecified fall, initial encounter (3) Back pain: Code(s): M54.9 - Dorsalgia, unspecified Qualifiers: Back pain location: low back pain Chronicity: acute Back pain laterality: bilateral Sciatica presence: without sciatica Qualified Code(s): M 54.50 - Low back pain, unspecified (4) Hypothyroidism: Code(s): E03.9 - Hypothyroidism, unspecified Category: Medical Qualifiers: Hypothyroidism type: acquired Qualified Code(s): E03.9 - Hypothyroidism, unspecified (5) CKD (chronic kidney disease) stage 3, GFR 30-59 ml/min: Comment: 08/2022 gfr 44 cr 1.23; 07/11/23 Bun 21 cr 1.63 egfr 32 stable avoid nephrotoxic agents. Atrophic left kidney noted on imaging July 2023 done by vascular 09/2023 elevated parathyroid hormone 114.7, vitamin-D & Ca WNL, BUN 25, creatinine 1.43, GFR 37 Code(s): N18.30 - Chronic kidney disease, stage 3 unspecified Category: Medical Qualifiers: Chronic kidney disease stage 3 subtype: stage 3b (GFR 30-44) Qualified Code(s): N18.32 - Chronic kidney disease, stage 3b (6) Atherosclerosis of lower extremity: Comment: [place] [facility] BUSH Code(s): I70.209 - Unspecified atherosclerosis of [place] arteries of extremities, unspecified extremity Category: Medical Qualifiers: Laterality: bilateral Peripheral atherosclerosis artery type: [place] artery Peripheral atherosclerosis clinical manifestation: with intermittent claudication Qualified Code(s): I70.213 - Atherosclerosis of [place] arteries of extremities with intermittent claudication, bilateral legs (7) CAD (coronary artery disease), [place] coronary artery: Comment: on ASA. RX for rosuvastatin 10mg prescribed. Repeat lipid panel 09/2023. Total cholesterol 137, LDL 55, HDL 68, triglycerides 70, at goal. Cont. rosuvastatin & Smoking cessation Code(s): I25.10 - Atherosclerotic heart disease of [place] coronary artery without angina pectoris Category: Medical Qualifiers: Associated angina: without angina [place] vs. transplanted heart: [place] heart Qualified Code(s): I25.10 - Atherosclerotic heart disease of [place] coronary artery without angina pectoris (8) At risk for malnutrition: Code(s): Z91.89 - Other specified personal risk factors, not elsewhere classified Category: Medical (9) COPD (chronic obstructive pulmonary disease): Code(s): J44.9 - Chronic obstructive pulmonary disease, unspecified Category: Medical Qualifiers: COPD type: emphysema Emphysema type: panlobular Qualified Code(s): J 43.1 - Panlobular emphysema (10) DRE (generalized anxiety disorder): Code(s): F41.1 - Generalized anxiety disorder Category: Medical (11) MDD (major depressive disorder), recurrent episode: Code(s): F33.9 - Major depressive disorder, recurrent, unspecified Category: Medical Qualifiers: Major depression episode severity: mild Qualified Code(s): F33.0 - Major depressive disorder, recurrent, mild (12) Nodule of apex of right lung: Comment: Ground glass opacity 2.[address] scan 07/2024 at [facility], repeat CT scan due in 6 months. I did not order this today, as it is a secondary concern relative to her other emergent conditions. Code(s): R91.1 - Solitary pulmonary nodule Category: Medical (13) Secondary hyperparathyroidism (of renal origin): Comment: elevated parathyroid hormone 114.7, vitamin-D & Ca WNL, BUN 25, creatinine 1.43, GFR 37 Plan: low phosphorus diet, hand out provided. Monitor Code(s): N25.81 - Secondary hyperparathyroidism of renal origin Category: Medical (14) Chronic anemia: Code(s): D64.9 - Anemia, unspecified Category: Medical Plan . Orders: Orders 2 TSH reflex Free T4 Today E03.9 - Hypothyroidism, unspecified Lipid Panel Today I25.10 - Atherosclerotic heart disease of [place] coronary artery without angina pectoris, I70.213 - Atherosclerosis of [place] arteries of extremities with intermittent claudication, bilateral legs, N18.32 - Chronic kidney disease, stage 3b Complete Blood Count no Diff Today I25.10 - Atherosclerotic heart disease of [place] coronary artery without angina pectoris, I70.213 - Atherosclerosis of [place] arteries of extremities with intermittent claudication, bilateral legs, N18.32 - Chronic kidney disease, stage 3b Ferritin Today I25.10 - Atherosclerotic heart disease of [place] coronary artery without angina pectoris, I70.213 - Atherosclerosis of [place] arteries of extremities with intermittent claudication, bilateral legs, N18.32 - Chronic kidney disease, stage 3b Vitamin B12 and Folate Today I25.10 - Atherosclerotic heart disease of [place] coronary artery without angina pectoris, I70.213 - Atherosclerosis of [place] arteries of extremities with intermittent claudication, bilateral legs, N18.32 - Chronic kidney disease, stage 3b Albumin Level Today Z91.89 - Other specified personal risk factors, not elsewhere classified Medications: New 2 baclofen 10 mg PO BEDTIME PRN 30 tabs 0RF muscle spasm Refilled 2 levothyroxine 75 mcg PO DAILY 90 tabs 2RF
[2024-10-21 12:25] VITALS: BP 164/80; PULSE 76; RESP 13; TEMP 36.2; O2SAT 98; BMI 27.3
--- OUTSIDE RECORDS SUMMARY | 2024-10-21 13:38 | XMS_ITS | Clinical Summary ---
Author Organization [employer] [facility] it Address [address] [place] [address] Care Team Providers Care Python Java Developer Name Role Phone Cosntance Tarawilmer Ponce NP Primary Care Provider [phone] Surgical History Surgery Date Site/Laterality Comments OTHER SURGICAL HISTORY 04/20/2022 PROCEDURE: [place] WIL[place] FACETECTOMY & FORAMOTOMY 1 VRT SGM [...] 5 season) 2024 06/15/2021, 08/30/2020 Influenza Vaccine (Season Ended) 2025 RSV Immunization Adult Patients (1 - 1-dose 75+ series) 2032 HIB [...] age to complete this topic Meningococcal B Vaccine Aged Out No l onger eligible based on patient's age to complete this topic RSV Immunization Patients Under 20 months Aged Out No longer eligible b ased on patient's age to complete this topic Varicella Vaccines Aged Out No longer eligible based on patient's age to complete this topic Care Teams Python Java Developer Relationship Specialty Start Date End Date Tara Nolasco NP [address] [place] [address] [address] [place] [address] PCP - General 06/21/22
== END 2024-10-21 13:47 | disposition home or self-care (01) ==
LOC: HO.HMCFM 12:15
PROVIDERS: PCP Nurse Practitioner Family; Visit Provider Nurse Practitioner Family
DX: E03.9 Hypothyroidism, unspecified (principal); N18.32 Chronic kidney disease, stage 3b; J43.1 Panlobular emphysema; M54.50 Low back pain, unspecified; Z09 Encounter for follow-up examination after completed treatment for conditions other than malignant neoplasm; W19.XXXA Unspecified fall, initial encounter; I70.213 Atherosclerosis of native arteries of extremities with intermittent claudication, bilateral legs; I25.10 Atherosclerotic heart disease of native coronary artery without angina pectoris; Z91.89 Other specified personal risk factors, not elsewhere classified; F41.1 Generalized anxiety disorder; F33.0 Major depressive disorder, recurrent, mild; R91.1 Solitary pulmonary nodule

== ENCOUNTER → 2024-10-21 12:14 | Outpatient (BNVA) | payer MEDICARE, SELFPAY | PROVIDERS: PCP Nurse Practitioner Family; Visit Provider Nurse Practitioner Family | DX: Z13.89 Encounter for screening for other disorder (principal) ==

== ENCOUNTER 2024-10-21 13:40 | Outpatient (REF) | payer MEDICARE, SELFPAY ==
--- OUTSIDE RECORDS SUMMARY | 2024-10-21 14:57 | XMS_ITS | Clinical Summary ---
Author Organization [employer] [facility] it Address [address] [place] [address] Care Team Providers Care Plant Operator/Shift Supervisor Name Role Phone Constance Tarawilmer Ponce NP Primary Care Provider [phone] Surgical History Surgery Date Site/Laterality Comments OTHER SURGICAL HISTORY 04/20/2022 PROCEDURE: [place] WILKES FACETECTOMY & FORAMOTOMY 1 VRT SGM [...] age to complete this topic Care Teams Plant Operator/Shift Supervisor Relationship Specialty Start Date End Date Tara Nolasco NP [address] [place] [address] [address] [place] [address] PCP - General 06/21/22
[2024-10-21 18:10] LABS: Hematocrit 28.2 % (37.0-47.0); Hemoglobin 9.2 g/dl (12.0-16.0); Mean Corpuscular HGB Conc 32.6 g/dl (31.0-35.0); Mean Corpuscular Hemoglobin 32.4 pg (27.0-33.0); Mean Corpuscular Volume 99.3 fL (80.0-98.0); Mean Platelet Volume 9.4 fL (9.4-12.3); Platelet Count 207 X10*3/uL (160-400); Red Blood Count 2.84 X10*6/uL (4.20-5.50); Red Cell Distribution Width 18.7 % (11.0-16.0); White Blood Count 6.6 X10*3/uL (4.8-10.8)
[2024-10-21 18:33] LABS: Albumin Level 3.4 g/dL (3.5-5.0); Anion Gap 14 (12-20); Blood Urea Nitrogen 21 mg/dL (9-16); Calcium 8.8 mg/dL (8.4-10.2); Carbon Dioxide 23 mmol/L (22-29); Chloride 102 mmol/L (96-108); Cholesterol 102 mg/dL (<200); Estimated Glomerular Filt Rate 53; Glucose Random 116 mg/dL (60-115); HDL Cholesterol 45 mg/dL (>40); LDL Cholesterol Calculated 46 mg/dL (<100); Potassium 4.3 mmol/L (3.3-5.1); Sodium 135 mmol/L (135-145); Triglycerides 58 mg/dL (<150)
[2024-10-21 18:43] LABS: Ferritin 192 ng/mL (10-250); TSH reflex Free T4 3.62 uIU/mL (0.32-4.0)
[2024-10-21 18:57] LABS: Vitamin B12 802 pg/mL (200-900)
== END 2024-10-21 13:41 | disposition home or self-care (01) ==
LOC: HO.WFDLDS 13:40
PROVIDERS: Referring Provider Internal Medicine Hypertension Specialist; Visit Provider Nurse Practitioner Family
DX: Z09 Encounter for follow-up examination after completed treatment for conditions other than malignant neoplasm (principal); M54.50 Low back pain, unspecified; E03.9 Hypothyroidism, unspecified; N18.32 Chronic kidney disease, stage 3b; I70.213 Atherosclerosis of native arteries of extremities with intermittent claudication, bilateral legs; I25.10 Atherosclerotic heart disease of native coronary artery without angina pectoris; J43.1 Panlobular emphysema; F41.1 Generalized anxiety disorder; F33.0 Major depressive disorder, recurrent, mild; R91.1 Solitary pulmonary nodule; N25.81 Secondary hyperparathyroidism of renal origin; D64.9 Anemia, unspecified; Z79.82 Long term (current) use of aspirin; Z91.81 History of falling; Z91.89 Other specified personal risk factors, not elsewhere classified
CPT/HCPCS: 36415; 80048; 80061; 82040; 82607; 82728; 82746; 84443; 85027; 99212

== ENCOUNTER 2024-11-10 10:59 | Outpatient (AMB) | payer MEDICARE, SELFPAY ==
--- NOTE | 2024-11-10 11:03 | A.OFFPC_ITS ---
Vital Signs 3 11/10/24 11:09 Height 5 ft 6 in Weight 161 lb 4 oz BMI 26.0 BP 102/67 Blood Pressure Location Lt brachial Position Sitting Respiration 12 Pulse 72 Pulse Source Pulse Oximeter Temp 97.4 F Temp Source Oral Pulse Oximetry (%) 100 Oxygen Delivery Method Room Air Intake Visit Reasons: [facility] hdfu Intake Note: HDF Follow up Postal Supervisor Required: No Allergies codeine Allergy (Unknown, Verified 11/10/24 11:04) Unknown Medication List - Last Reconciled 11/10/24 by Blank Rodriguez, [facility]- albuterol sulfate 90 mcg/actuation 2 puffs PO Q4-6H PRN aspirin (Adult Low Dose Aspirin) 81 mg PO DAILY atenolol 50 mg PO BID 90 days baclofen 10 mg PO BEDTIME PRN budesonide 0.25 mg (2 mL) inhalation BID bupropion HCl SR 200 mg PO QAM clopidogrel mg PO DAILY furosemide 20 mg PO DAILY gabapentin 1,200 mg PO BEDTIME hydralazine 50 mg PO TID ipratropium-albuterol 0.5 mg-3 mg(2.5 mg base)/3 mL 3 mL inhalation Q6H PRN isosorbide mononitrate ER 30 mg PO DAILY levothyroxine 75 mcg PO DAILY lorazepam 0.5 mg PO BEDTIME PRN nebulizer accessories Use nebulizer q 6 hrs prn wheezing, sob, cough DX: COPD nebulizers Use nebulizer q 6 hrs prn wheezing, sob, cough DX: COPD omeprazole 20 mg PO BID rosuvastatin 10 mg PO DAILY sertraline 100 mg PO DAILY tramadol 50 mg PO Q6H PRN Tobacco use date assessed: 11/10/24 Fall risk assessment: No Falls in past year Last assessed Fall Risk: 11/10/24 Dental Screening Dental Screen Date: 11/10/24 Did you have a dental visit in the last 12 months?: Yes Did you have a dental problem in the last 6 months where you did not have access to dental care?: No Was dental information given to patient?: Patient has dentist HPI HPI Comments 2 History of Present Illness0 Details Raquel 69-year-old female with CKD 3 B, atrophi c L kidney with L renal artery stenosis, hypertension, arthrosclerosis bilat lower extremities with claudication,CAD, severe plaque within the abdominal aorta beginning at the level of the SMA extending across the origin the left main renal artery with severe atrophy of the left kidney, impaired fasting glucose, COPD, GERD, hypothyroidism, current smoker, DRE, MDD, hemochromatosis, multi joint osteoarthritis, allergic rhinitis, Ground glass opacity 2.[address] scan 07/2024 at [facility], repeat CT scan due in 6 months Status post appendectomy, right shoulder rotator cuff repair 2016, stenting of the mid abdominal aorta and both common iliac arteries as well as the left external iliac artery with arthrectomy and angioplasty of the left common femoral artery 08/09/2023 Dr Ruy [facility], Angioplasty of the left common iliac artery with stent placement, placement of a left external iliac artery stent and arthrectomy just stenosis of the left common femoral artery November 15, 2023, July 30 2024 right carotid endarterectomy, Right axillary to bi-fem bypass with PTFA graft, left femoral endarterectomy and completion angiogram with R proximal subclavian angioplasty and stenting09/03/24 Here today for a Transitional Care Management Visit Discharge summary reviewed. Admitted after a slip and fall out of bed. Negative fractures. Developed AMS and delerium. Blood cultures gram+ cocci, streptoccus mutans bacteremia. Had acute low back pain. No osteo or abcess. Blood culture suggestive of oral contamination d/t dental extractions 2 weeks prior. Treated w/Ceftriaxone. Echo done to r/o infectous carditis. Echo shows some findings suggestive of cardiac amyloid.(no vegetations, preserved systolic function, moderate diastolic dysfunction with strain pattern suggestive of cardiac amyloid; previous echo 06/28/24 normal) DC home w/ PCP heads up: outpatient Cards consult; repeat CBC with Diff and CMP [address] head parenchymal volume loss, mild low density white matter changes Admission Date: 10/23/24 Discharge Date: 10/30/24 Hospital: [facility] DC to SNF at [facility] 10/30-11/06/24. Date of interactive contact with Nurse Colvin: as documented in chart Pending diagnostic tests/treatments: none Pending consults: none DME: Arvin PT/OT/CULTURAL HISTORIAN: Y VNA to start this week Home Health Aide/COMMERCIAL CRABBER: Y will be eval this week [facility] Referrals: None Medications reconciled & updated. During todays TCM visit, the d/c summary was reviewed, along with the need for or follow-up on pending diagnostic tests and treatments, as necessary interaction with other health care transport nurse who will assume or reassume care of the beneficiary?s system-specific problems was done or is being worked on, education was provided to the beneficiary, family, guardian, and/or caregiver, referrals to establish or re-establish and arrange needed community resources we completed, assistance in scheduling required follow-up with community providers and services & finally updated medication list given to patient/caregiver History of Present Illness - The patient is a 69-year-old female pr esenting with transitional care management following recent hospitalization. - Following a fall and consequent bacter emia originating from dental sources, the patient was hospitalized from October 23 to October 30, thereafter transitioning to rehabilitation. - The course of the hospitalization incl uded the onset of a delusional episode, characterized by confusion, hallucinations, and misidentification of individuals, subsiding prior to discharge. - Persisting low back pain has been repo rted since returning home on November 06, with noted exacerbation in the past few days affecting mobility and nocturnal rest. - The patient was identified with cervic al spinal stenosis during the rehabilitation, but the current back pain is not located in the cervical region - A recent echocardiogram indicated new- onset cardiac amyloidosis, not present in prior cardiac evaluations. - Renal function is a concern given her single functional kidney and recent administration of Lasix, though currently, she denies edema or significant swelling. Did have some urinary retention while inpatient requiring lindquist. Admits to not voiding a lot since return home - Previous observations from the rehabil itation mentioned pressure sores, which the patient believes to have healed at present. Review of Systems - General: Reports significant weight lo ss during recent illness. - Skin: Denies current pressure sores; r eports history of pressure sores during hospitalization. - Cardiovascular: Denies shortness of br eath; history of possible cardiac amyloidosis. - Respiratory: Denies respiratory issues ; oxygen saturation was maintained. - Gastrointestinal: Reports constipation ; denies recent use of bowel medication. - Genitourinary: Reports urinary retenti on; low urine output since returning home. - Neurological: Reports back pain radiat ing to legs; experienced confusion and delusions during hospitalization. - Musculoskeletal: Reports severe low ba ck pain; limited mobility. Physical Exam awake alert NAD, chronically ill appearing, frail, accompanied by dtr Blank RRR 2/6 systolic murmur No carotid bruit, R CEA scar LS dim throughout No edema BLE, + PP, skin intact Well healing incisions to bilat groin, R anterior chest No CVAT No abd pain Pain w/ palp paraspinally lumbar bilat, worse on R, no spinal tenderness, sit to stand causes spasms in this area, GARCIA x 4, overall decreased strength & tone d/t generalized deconditioning, unable to assess reflexes, antalgic gait, using walker, worsening pain w/ bending forward Skin pale warm and dry ; scattered ecchymosis on buttocks, posterior trunk and much of R side of body. No open areas on buttocks Alert and oriented Results - Labs: Most recent results from SNF. Pao bs done today, resulted below. Discussion Notes I discussed with the patient the broad plan to address her significant back pain with an increased dose of her current pain medication, considering the risks to her renal function. We considered the benefit of urine testing to screen for any infection potentially exacerbating her pain, with the understanding that results will be reviewed and communicated. Additionally, we deliberated on the echocardiogram findings consistent with potential cardiac amyloidosis, emphasizing the need for further cardiology evaluation. I advised the patient to continue engaging with rehabilitation services and accepting the support available through visiting nurses and therapists. I also affirmed the importance of using assistive devices to prevent further falls. Assessment and Plan 1. Fall-related injury and bacteremia The patient underwent hospitalization because of a fall and bacteremia. Completed IV antibiotics,on oral ABT and will complete on Saturday. 2. Low back pain Increasing tramadol to 100 mg for severe low back pain is planned to help manage symptoms. 3. Delusional episode No current issues post-hospitalization, though relevant for future contexts of care. Monitoring the situation should be maintained. 4. Urinary retention Addressed with urinalysis during this visit. Further evaluation may be required depending on findings. 5. Cardiac amyloidosis Findings necessitate urgent cardiology evaluation to determine heart function and potential necessary interventions. 6. Rehabilitation planning Continue current rehabilitation services. Engagement with additional support systems, emphasizing safety and independence in the home environment, are recommended. Patient Instructions - Take tramadol medication at the increa sed dose as prescribed. - Participate in all scheduled rehabilit ation therapies. - Drink plenty of fluids and monitor uri ne output. - Contact healthcare provider if new or worsening symptoms occur. - Expect contact from cardiology regardi ng further cardiac evaluation. - Use assistive devices and support syst ems as instructed to prevent further injury. - RTO in 2 weeks for close interim f/u high risk for readmission Consent. Patient was informed and verbally consented to the use of an ambient scribe for clinic note documentation during this visit. Total time spent caring for the patient today was 65 minutes. This includes time spent before the visit reviewing the chart, time spent during the visit, and time spent after the visit on documentation, reviewing laboratory results, diagnostic imaging, medications, performing a medically necessary evaluation, counseling on diagnoses, care coordination, ordering appropriate tests, ordering appropriate medications, review of tests performed by other providers, reporting test results with the patient, communication with other healthcare providers [facility] Medical History (Updated 11/11/24 @ 14:38 by CUCA Payne-) Acute bacterial sinusitis Anxiety Arthritis of left hip COPD (chronic obstructive pulmonary disease) Cough Disc degeneration, lumbar History of stent insertion of renal artery (~07/2024) HTN (hypertension) Hypothyroidism Lumbar facet arthropathy Lumbar radicular pain Personal history of nicotine dependence Rhinitis Sacroiliac joint pain 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 Stenosis of right carotid artery greater than 50% Stenosis, spinal, lumbar Tachycardia Surgical History (Updated 10/21/24 @ 18:37 by CUCA Payne-SYLVIA) History of carotid endarterectomy (~07/2024) No pertinent past surgical history S/P vascular bypass (~08/2024) Social History Household Members: Children Household Members Other:: daughter Housing: House Are you a primary gericare aide teacher to a significant other at home: No Do you presently have visiting nurse or other home services: No Alcohol intake: current Alcohol intake frequency: holidays/special occasions only Alcohol type: beer Patient Tobacco Use Status: Former Tobacco user Tobacco use type: Cigarette Cigarette Packs Per Day: 0 Cigarettes Per Day: 2 e-Cigarette/Vaping Use: Never Used service: No Current occupational status: retired Current occupation: right handed, retired Sexual orientation: Unable to collect Gender identity: Unable to collect Cognitive needs: No Hearing needs: No Vision needs: Yes (wears glasses to drive.) Questionnaire PHQ-9 Over the last 2 weeks, how often have you been bothered by any of the following problems? 1. Little interest or pleasure in doing things: not at all 2. Feeling down, depressed, or hopeless: not at all 3. Trouble falling or staying asleep, or sleeping too much: not at all 4. Feeling tired or having little energy: not at all 5. Poor appetite or overeating: not at all 6. Feeling bad about yourself - or that you are a failure or have let yourself or your family down: not at all 7. Trouble concentrating on things, such as reading the newspaper or watching television: not at all 8. Moving or speaking so slowly that other people could have noticed. Or the opposite - being so fidgety or restless that you have been moving around a lot more than usual: not at all 9. Thoughts that you would be better off or of hurting yourself in some way: not at all Total score: 0 Depression Screening Interpretation: Negative Depression Screening Done: Yes 38282 - PHQ-9 Billing: Yes Source: Developed by Drs. Jayy Nguyễn, Stephy Coyle, Luis Walker and colleagues, with an educational tino from [employer]. Thrive Questionnaire Date Thrive assessed: 11/10/24 I am a: Patient What is your living situation today?: I have a steady place to live Within the past 12 months, did the food you bought not last and you didn't have the money to get more?: Never true Within the past 12 months, did you worry whether your food would run out before you got money to buy more?: Never true Do you have trouble paying for medicines?: No Do you have trouble getting transportation to medical appointments?: No Do you have trouble paying your heating and electricity bill?: No Do you have trouble taking care of your child, family member or friend?: No Do you have trouble with day-to-day activities such as bathing, preparing meals, shopping, managing finances, etc.?: No Are you currently unemployed and looking for a job?: No Are you interested in more education?: No Please select the resources that you would like help with: None Currently or been in a relationship where the following occur: No concerns reported THRIVE Score: 0 DRE-7 AMB Questionnaire DRE-7 Date DRE - 7 assessed: 11/10/24 Feeling nervous, anxious, or on edge: 0 = Not at all Not being able to stop or control worryin = Not at all Worrying too much about different things: 0 = Not at all Trouble relaxin = Not at all Being so restless that it is hard to sit still: 0 = Not at all Becoming easily annoyed or irritable: 0 = Not at all Feeling afraid as if something awful might happen: 0 = Not at all Total DRE-7 score (0-4 normal; 5-9 mild; 10-14 moderate; 15-21 severe): 0 Source: Developed by Drs. Jayy Nguyễn, Stephy Coyle, Luis Walker and colleagues, with an educational tino from [employer]. DRE-7 Assessment Billing DRE-7 Assessment Tool: DRE-7 Assessment 84494 Physical exam (Primary Care) Vital Signs: Last Vital Signs Temp 97.4 F 11/10/24 11:09 Pulse 72 11/10/24 11:09 Resp 12 11/10/24 11:09 BP 102/67 11/10/24 11:09 Pulse Ox 100 11/10/24 11:09 Oxygen Delivery Method Room Air 11/10/24 11:09 BMI result Body Mass Index 26.0 Tobacco/Smoking Status: Tobacco use Status Tobacco use date assessed 11/10/24 11/10/24 11:07 Patient Tobacco Use Status Former Tobacco user 11/10/24 11:07 Tobacco use type Cigarette 11/10/24 11:07 e-Cigarette/Vaping Use Never Used 11/10/24 11:07 PHQ-9: PHQ-9 Score PHQ-9: Total score 0 11/11/24 06:53 Depression Screening Interpretation: Negative Thrive Assessment: Date of Thrive Assessment Date Thrive assessed 11/10/24 11/10/24 11:07 Currently or been in a relationship where the following occur: No concerns reported Results Reviewed Results Reviewed: RUN: 11/10/241958 PAGE 1 [facility] [address] [place] [phone] Finish Patcher: Gagandeep Ponce M.D. Specimen Inquiry L Name: Myrtle Hamm/Sex: 69/F [facility] 1955 [id number]#: [id number] Attend Dr: Blank Rodriguez [facility] Re11/10/24 Status: REG REF Location: [facility] isch: SPEC : [id number] [place]: 11/10/24 STATUS: COMP REQ : [id number] RECD: 11/10/24-[address]: Blank Rodriguez [facility] COMP: 11/10/24-1218 ENTERED: 11/10/[address] [facility] [address]: ORDERED: CBC Man Diff Test Result Flag Reference WBC 6.0 4.8-10.8 X10*3/uL RBC 2.52 L 4.20-5.50 X10*6/uL HGB 8.5 L 12.0-16.0 g/dl HCT 26.2 L 37.0-47.0 % MCV 104.0 H 80.0-98.0 fL MCH 33.7 H 27.0-33.0 pg MCHC 32.4 31.0-35.0 g/dl RDW 18.8 H 11.0-16.0 % PLT 258 160-400 X10*3/uL MPV 9.3 L 9.4-12.3 fL NRBC Pct Auto 0.0 0.0-0.2 /100WBC NRBC Abs Auto 0.000 0.0-0.012 X10*3/uL Neut Pct Manual 73 45-73 % Band Pct 2 L 3-5 % Lymph PctManual 12 L 20-40 % AtLymph Pct Man 2 0-6 % Lewis Pct Manual 8 2-11 % Eos Pct Manual 2 0-4 % Baso Pct Manual 1 0-2 % ANC NeutAbsMan 4.5 2.0-8.3 X10*3/uL Lymph Abs Man 0.7 L 1.2-4.9 X10*3/uL AtLymph Abs Man 0.1 x10*3/uL Lewis Abs Manual 0.5 0.1-1.2 X10*3/uL Eos Abs Manual 0.1 0.0-0.4 X10*3/uL Baso Abs Manual 0.1 0.0-0.2 X10*3/uL Platelet Est NORMAL NORMAL Plt Morph Com NORMAL RBC Morph NOTED Macrocytosis 1+ (5-14) /OIF Ovalocytes 1+ (5-14) /OIF Toxic Vac PRESENT RUN: 11/10/242000 PAGE 1 [facility] [address] [place] [phone] Finish Patcher: Gagandeep Ponce M.D. Specimen Inquiry L Name: Myrtle Hamm Age/Sex: 69/F : 1955 Unit#: [id number] Attend Dr: Blank Rodriguez Re11/10/24 Status: REG REF Location: [facility] isch: SPEC : [id number] [place]: 11/10/24-1220 STATUS: COMP REQ : [id number] RECD: 11/10/24-[address]: Nilay Spencer MD COMP: 11/10/24-1437 ENTERED: 11/10/24-[address]: Blank Rodriguez ORDERED: CMP Test Result Flag Reference Sodium 138 135-145 mmol/L Potassium 4.1 3.3-5.1 mmol/L CL 105 96-108 mmol/L CO2 25 22-29 mmol/L Gap 12 12-20 BUN 23 H 9-16 mg/dL Creat 1.13 0.5-1.4 mg/dL eGFR 48 Chronic Kidney Disease: Estimated GFR < 60 mL/min/1.73m2 Severe Kidney Disease: Estimated GFR < 15 mL/min/1.73m2 Glucose, Random 81 60-115 mg/dL CA 8.7 8.4-10.2 mg/dL Total Bili 0.8 0.0-1.0 mg/dL AST (GOT) 45 H 5-31 U/L ALT (GPT) 24 0-31 U/L Protein, Total 7.3 6.5-8.0 g/dL Alb 3.3 L 3.5-5.0 g/dL Alk Phos 114 39-117 U/L RUN: 11/10/242000 PAGE 1 [facility] [address] [place] [phone] Finish Patcher: Gagandeep Ponce M.D. Specimen Inquiry L Name: Myrtle Hamm Age/Sex: 69/F : 1955 Unit#: [id number] Attend Dr: Blank Rodriguez Re11/10/24 Status: REG REF Location: [facility] isch: SPEC : [id number] [place]: 11/10/24 STATUS: COMP REQ : [id number] RECD: 11/10/[address]: Blank Rodriguez COMP: 11/10/24 ENTERED: 11/10/[address]: ORDERED: RUBINA w Micros QUERIES: Collection Date: 11/10/24 Collection Time: 0000 Source: Urine, Clean Catch Test Result Flag Reference Ur Color Yellow Ur Appear Clear PH 5.5 5.0-9.0 Ur Glu Negative Negative mg/dL Urine Blood Negative Negative Spec Matheny Ur 1.015 1.005-1.025 Urine Protein Negative Neg-Trace mg/dL Urine Ketones Negative Negative mg/dL Ur Nitrite Negative Negative Ur Amol Esterase Moderate (2+) H Negative Ur RBC 0-2 0-2 /HPF Ur WBC 11-20 H 0-5 /HPF Ur Squam Epi >20 0-2 /HPF Ur Bact 4+ None Seen Ur Hyaline Agile Java Developer 11-20 0-2 /LPF Coding Level of Care Code Est Pt Level 5 (63934) Complex EM visit Add On G2211 Diagnoses Hospital discharge follow-up Z09 Bacteremia due to Streptococcus R78.81; B95.5 Lumbar radiculopathy M54.16 Abnormal echocardiogram R93.1 Urinary retention R33.9 Frailty R54 At risk for malnutrition Z91.89 Chronic anemia D64.9 Abnormal CBC R79.89 CPT Codes [facility] OUTPT/OFFICE VIS - G2212 Additional Codes DRE-7 Assessment Billing - DRE-7 Assessment Tool: DRE-7 Assessment 55879 ([id number]) PHQ-9 - 71302 - PHQ-9 Billing: Yes ([id number]) Assessment & Plan Assessment & Plan (1) Hospital discharge follow-up: Code(s): Z09 - Encounter for follow-up examination after completed treatment for conditions other than malignant neoplasm Category: Medical (2) Bacteremia due to Streptococcus: Code(s): R78.81 - Bacteremia; B95.5 - Unspecified streptococcus as the cause of diseases classified elsewhere Category: Medical (3) Lumbar radiculopathy: Code(s): M54.16 - Radiculopathy, lumbar region Category: Medical (4) Abnormal echocardiogram: Comment: 10/2024 Echo done to r/o infectous carditis. Echo shows some findings suggestive of cardiac amyloid.(no vegetations, preserved systolic function, moderate diastolic dysfunction with strain pattern suggestive of cardiac amyloid; previous echo 06/28/24 normal) Code(s): R93.1 - Abnormal findings on diagnostic imaging of heart and coronary circulation Category: Medical (5) Urinary retention: Code(s): R33.9 - Retention of urine, unspecified Category: Medical (6) Frailty: Code(s): R54 - Age-related physical debility Category: Medical (7) At risk for malnutrition: Code(s): Z91.89 - Other specified personal risk factors, not elsewhere classified Category: Medical (8) Chronic anemia: Code(s): D64.9 - Anemia, unspecified Category: Medical (9) Abnormal CBC: Code(s): R79.89 - Other specified abnormal findings of blood chemistry Category: Medical Plan . Orders: Orders 2 Complete Blood Count Man Dif 11/10/24 B95.5 - Unspecified streptococcus as the cause of diseases classified elsewhere, R78.81 - Bacteremia, Z09 - Encounter for follow-up examination after completed treatment for conditions other than malignant neoplasm Comprehensive Met. Panel 11/10/24 B95.5 - Unspecified streptococcus as the cause of diseases classified elsewhere, R78.81 - Bacteremia, Z09 - Encounter for follow-up examination after completed treatment for conditions other than malignant neoplasm Complete Blood Count Man Dif 11/16/24 B95.5 - Unspecified streptococcus as the cause of diseases classified elsewhere, D64.9 - Anemia, unspecified, R78.81 - Bacteremia, R79.89 - Other specified abnormal findings of blood chemistry UA CC w/rflx Micro + Cult 11/10/24 M54.16 - Radiculopathy, lumbar region Referrals 2 Cardiology Referral R93.1 - Abnormal findings on diagnostic imaging of heart and coronary circulation Medications: New 2 tramadol 100 mg PO Q6H 14 days PRN 56 tabs 0RF pain
[2024-11-10 11:09] VITALS: BP 102/67; PULSE 72; RESP 12; TEMP 36.3; O2SAT 100; BMI 26.0
--- OUTSIDE RECORDS SUMMARY | 2024-11-10 12:18 | XMS_ITS | Encounter Summary ---
Author Organization [facility] Address [address] [place] [address] Care Team Providers Care Insurance Risk Manager Name Role Phone Nolasco, Sonia Rosario LINK TRAINER Primary Care Provider [phone] Encounter Details Date Type Department Care Team (Late st Contact Info) Description 11/02/2024 Lab Requisition [facility] - Main Lab [address] [facility] [place] [id number] Carole Quiroz MD [address] [place] [address] Streptococcal infection, unspecified site; Personal history of other venous thrombosis and embolism; Chronic kidney disease, unspecified; Hyperlipidemia, unspecified; Hypothyroidism, unspecified; Anemia, unspecified; Vitamin D deficiency, unspecified; Vitamin B12 deficiency anemia, unspecified; Bacteremia Social History Tobacco Use Types Packs/Day Years Used Date Smoking Tobacco: Every Day Cigarettes Smokeless Tobacco: Never Comments Unknown Sex and Gender Information Value Date Recorded Sex Assigned at Not on file Legal Sex Female 9:45 AM EST Gender Identity Not on file Sexual Orientation Not on file documented as of this encounter Plan of Treatment Not on file documented as of this encounter Procedures Procedure Name Priority Date/Time Associated Diagnosis Comments THYROID STIMULATING HORMONE WITH REFLEX TO FREE T4 AND FREE T3 Routine 11/02/2024 6:26 AM EDT Streptococcal infection, unspecified site Personal history of other venous thrombosis and embolism Chronic kidney disease, unspecified Hyperlipidemia, unspecified Hypothyroidism, unspecified Anemia, unspecified Vitamin D deficiency, unspecified Vitamin B12 deficiency anemia, unspecified Bacteremia VITAMIN B12 AND FOLATE Routine 6:26 AM EDT Streptococcal infection, unspecified site Personal history of other venous thrombosis and embolism Chronic kidney disease, unspecified Hyperlipidemia, unspecified Hypothyroidism, unspecified Anemia, unspecified Vitamin D deficiency, unspecified Vitamin B12 deficiency anemia, unspecified Bacteremia LIPID PANEL WITH REFLEX TO DIRECT LDL Routine 11/02/2024 6:26 AM EDT Streptococcal infection, unspecified site Personal history of other venous thrombosis and embolism Chronic kidney disease, unspecified Hyperlipidemia, unspecified Hypothyroidism, unspecified Anemia, unspecified Vitamin D deficiency, unspecified Vitamin B12 deficiency anemia, unspecified Bacteremia VITAMIN D 25 HYDROXY Routine 11/02/2024 6:26 AM EDT Streptococcal infection, unspecified site Personal history of other venous thrombosis and embolism Chronic kidney disease, unspecified Hyperlipidemia, unspecified Hypothyroidism, unspecified Anemia, unspecified Vitamin D deficiency, unspecified Vitamin B12 deficiency anemia, unspecified Bacteremia COMPLETE BLOOD COUNT Routine 11/02/2024 6:26 AM EDT Streptococcal infection, unspecified site Personal history of other venous thrombosis and embolism Chronic kidney disease, unspecified Hyperlipidemia, unspecified Hypothyroidism, unspecified Anemia, unspecified Vitamin D deficiency, unspecified Vitamin B12 deficiency anemia, unspecified Bacteremia IRON Routine 11/02/2024 6:26 AM EDT Streptococcal infection, unspecified site Personal history of other venous thrombosis and embolism Chronic kidney disease, unspecified Hyperlipidemia, unspecified Hypothyroidism, unspecified Anemia, unspecified Vitamin D deficiency, unspecified Vitamin B12 deficiency anemia, unspecified Bacteremia COMPREHENSIVE METABOLIC PANEL Routine 11/02/2024 6:26 AM EDT Streptococcal infection, unspecified site Personal history of other venous thrombosis and embolism Chronic kidney disease, unspecified Hyperlipidemia, unspecified Hypothyroidism, unspecified Anemia, unspecified Vitamin D deficiency, unspecified Vitamin B12 deficiency anemia, unspecified Bacteremia documented in this encounter Results * (ABNORMAL) Vitamin B12 and folate (11/02/2024 6:26 AM EDT) [facility] Vitamin B-12 1,079(H) 250 - 900 pcg/mL LAB CHEMISTRY METHOD 11/02/2024 2:59 PM EDT [facility] Folate 7.4 2.8 - 17.0 ng/ml LAB CHEMISTRY METHOD 11/02/2024 2:59 PM EDT [facility] Blood Venous blood specimen / Unknown Venipuncture / Unknown 11/02/2024 6:26 AM EDT 11/02/2024 12:28 PM EDT us Carole Quiroz MD LAB BLOOD ORDERABLES Final Resul t Performing Organization Address City/[facility]/ZIP Co de Phone Number [facility] [address] [place] [address], [place] [phone] * Vitamin D 25 hydroxy (11/02/2024 6:26 AM EDT) Vit D, 25-Hydroxy 32.5 30.0 - 80.0 ng/mL LAB CHEMISTRY METHOD 11/02/2024 3:10 PM EDT [facility] Blood Venous blood specimen / Unknown Venipuncture / Unknown 11/02/2024 6:26 AM EDT 11/02/2024 12:28 PM EDT us Carole Quiroz MD LAB BLOOD ORDERABLES Final Resul t Performing Organization Address [facility]/ZIP Co de Phone Number [facility] [address] [place] [address], [place] [phone] * Iron (11/02/2024 6:26 AM EDT) Iron 45 40 - 150 mcg/dL LAB CHEMISTRY METHOD 11/02/2024 2:37 PM EDT [facility] Blood Venous blood specimen / Unknown Venipuncture / Unknown 11/02/2024 6:26 AM EDT 11/02/2024 12:28 PM EDT us Carole Quiroz MD LAB BLOOD ORDERABLES Final Resul t Performing Organization Address [facility]/ZIP Co de Phone Number [facility] [address] [place] [address], * Thyroid stimulating hormone with reflex to free t4 and free t3 (11/02/2024 6:26 AM EDT) Pathologist [facility] TSH 2.98 0.40 - 4.00 mcIU/mL LAB CHEMISTRY METHOD 11/02/2024 3:10 PM EDT [facility] Blood Venous blood specimen / Unknown Venipuncture / Unknown 11/02/2024 6:26 AM EDT 11/02/2024 12:28 PM EDT Carole Quiroz MD LAB BLOOD ORDERABLES Final Resul t Performing Organization Address [facility] Co de Phone Number [facility] [address] [place] [address], [place] [phone] * (ABNORMAL) Lipid panel with reflex to direct LDL (11/02/2024 6:26 AM EDT) Pathologist [facility] Cholesterol 76 0 - 200 mg/dL LAB CHEMISTRY METHOD 11/02/2024 2:37 PM EDT [facility] Triglycerides 88 0 - 150 mg/dL LAB CHEMISTRY METHOD 11/02/2024 2:37 PM EDT [facility] HDL 34(L) >=40 mg/dL LAB CHEMISTRY METHOD 11/02/2024 2:37 PM EDT [facility] LDL Calculated 24 0 - 100 mg/dL LAB CHEMISTRY METHOD 11/02/2024 2:37 PM EDT [facility] VLDL Cholesterol Facundo 17.6 mg/dL LAB CHEMISTRY METHOD 11/02/2024 2:37 PM EDT [facility] Non HDL Chol. (LDL+VLDL) 42 <145 mg/dL LAB CHEMISTRY METHOD 11/02/2024 2:37 PM EDT [facility] Chol/HDL Ratio 2.2 0.0 - 4.4 LAB CHEMISTRY METHOD 11/02/2024 2:[address] [facility] Blood Venous blood specimen / Unknown Venipuncture / Unknown 11/02/2024 6:26 AM EDT 11/02/2024 12:28 PM EDT us Carole Quiroz MD LAB BLOOD ORDERABLES Final Resul t [facility] [address] [place] [address], [place] [phone] * (ABNORMAL) Comprehensive metabolic panel (11/02/2024 6:26 AM EDT) Sodium 140 133 - 145 mmol/L LAB CHEMISTRY METHOD 11/02/2024 2:[address] [facility] Potassium 3.3(L) 3.5 - 5.5 mmol/L LAB CHEMISTRY METHOD 11/02/2024 2:[address] [facility] Chloride 105 96 - 110 mmol/L LAB CHEMISTRY METHOD 11/02/2024 2:[address] [facility] CO2 27 21 - 32 mmol/L LAB CHEMISTRY METHOD 11/02/2024 2:[address] [facility] Anion Gap 8 3 - 11 LAB CHEMISTRY METHOD 11/02/2024 2:[address] [facility] Glucose 73 70 - 100 mg/dL LAB CHEMISTRY METHOD 11/02/2024 2:[address] [facility] BUN 20 5 - 25 mg/dL LAB CHEMISTRY METHOD 11/02/2024 2:[address] [facility] Creatinine 1.14(H) 0.50 - 1.10 mg/dL LAB CHEMISTRY METHOD 11/02/2024 2:[address] [facility] eGFR 53(L) >=60 mL/min/1. 73m2 LAB CHEMISTRY METHOD 11/02/2024 2:37 PM EDT [facility] Comment:Calculation based on the Chronic Kidney Disease Epidemiology Collaboration (CKD-EPI) equation refit without adjustment for race. BUN/Creatinine Ratio 17.5 LAB CHEMISTRY METHOD 11/02/2024 2:[address] [facility] Calcium 8.6 8.5 - 10.5 mg/dL LAB CHEMISTRY METHOD 11/02/2024 2:[address] [facility] AST (SGOT) 40 10 - 42 unit/L LAB CHEMISTRY METHOD 11/02/2024 2:[address] [facility] ALT (SGPT) 54 10 - 60 unit/L LAB CHEMISTRY METHOD 11/02/2024 2:[address] [facility] Alkaline Phosphatase 132(H) 42 - 121 unit/L LAB CHEMISTRY METHOD 11/02/2024 2:[address] [facility] Total Protein 6.9 6.0 - 8.0 g/dL LAB CHEMISTRY METHOD 11/02/2024 2:[address] [facility] Albumin 2.8(L) 3.2 - 5.0 g/dL LAB CHEMISTRY METHOD 11/02/2024 2:[address] [facility] Total Bilirubin 0.6 0.0 - 1.4 mg/dL LAB CHEMISTRY METHOD 11/02/2024 2:[address] [facility] Blood Venous blood specimen / Unknown Venipuncture / Unknown 11/02/2024 6:26 AM EDT 11/02/2024 12:28 PM EDT us Carole Quiroz MD LAB BLOOD ORDERABLES Final Resul t [facility] [address] [place] [address], [place] [phone] * (ABNORMAL) Complete blood count (11/02/2024 6:26 AM EDT) WBC 5.6 4.8 - 10.8 K/mcL LAB HEMETOLOGY METHOD 11/02/2024 1:58 PM EDT [facility] RBC 2.70(L) 3.80 - 4.80 M/mcL LAB HEMETOLOGY METHOD 11/02/2024 [facility] Hemoglobin 8.7(L) 11.5 - 16.0 g/dL LAB HEMETOLOGY METHOD 11/02/2024 1:58 [facility] Hematocrit 27.8(L) 35.0 - 47.0 % LAB HEMETOLOGY METHOD 11/02/2024 1:[address] [facility] MCV 104.5(H) 79.0 - 98.0 FL LAB HEMETOLOGY METHOD 11/02/2024 1:[address] [facility] MCH 32.7(H) 27.0 - 32.0 pcg LAB HEMETOLOGY METHOD 11/02/2024 1:[address] [facility] MCHC 31.3(L) 32.0 - 37.0 g/dL LAB HEMETOLOGY METHOD 11/02/2024 1:[address] [facility] RDW 18.4(H) 11.0 - 15.0 % LAB HEMETOLOGY METHOD 11/02/2024 1:[address] [facility] Platelets 235 130 - 400 K/mcL LAB HEMETOLOGY METHOD 11/02/2024 1:[address] [facility] MPV 9.7 7.0 - 11.0 FL LAB HEMETOLOGY METHOD 11/02/2024 1:[facility] NRBC 0.0 <1.0 % LAB HEMETOLOGY METHOD 11/02/2024 1:58 [facility] NRBC Absolute 0.00 <0.10 K/mcL LAB HEMETOLOGY METHOD 11/02/2024 1:58 PM EDT [facility] Blood Venous blood specimen / Unknown Venipuncture / Unknown 11/02/2024 6:26 AM EDT 11/02/2024 12:28 PM EDT us Carole Quiroz MD LAB BLOOD ORDERABLES Final Resul t [facility] [address] [place] [address], documented in this encounter Visit Diagnoses Diagnosis Streptococcal infection, unspecified site Personal history of other venous thrombosis and embolism Chronic kidney disease, unspecified Hyperlipidemia, unspecified Hypothyroidism, unspecified Anemia, unspecified Vitamin D deficiency, unspecified Vitamin B12 deficiency anemia, unspecified Bacteremia documented in this encounter Care Teams Insurance Risk Manager Relationship Specialty Start Date End Date Tara Nolasco NP [address] [place] [address] [address] [place] [address] PCP - General 06/21/22 documented as of this encounter
--- OUTSIDE RECORDS SUMMARY | 2024-11-10 12:18 | XMS_ITS | Encounter Summary ---
Author Organization [facility] Address [address] [place] [address] Care Team Providers Care Drier Name Role Phone Tara Nolasco CORE STICKER Primary Care Provider [phone] Encounter Details Date Type Department Care Team (Late st Contact Info) Description 11/07/2024 Lab Requisition [facility] - Main Lab [address] [facility] [place] [address] Carole Quiroz MD [address] [place] [address] Personal history of other venous thrombosis and embolism Social History Tobacco Use Types Packs/Day Years [...] on file documented as of this encounter Visit Diagnoses Diagnosis Personal history of other venous thrombosis and embolism documented in this encounter Care Teams Drier Relationship Specialty Start Date End Date Tara Nolasco NP [address] [place] [address] PCP - General 06/21/22 documented as of this encounter
--- OUTSIDE RECORDS SUMMARY | 2024-11-10 12:18 | XMS_ITS | Clinical Summary ---
Author Organization [address] [facility] Address [address] [place] [address] Phone Care Team Providers Care Art Gilder Name Role Phone Tara Nolasco NP Primary Care Provider Encounters Date Type Department Care Team Description 11/07/[address] [facility] [address] [place] [phone] Carole Quiroz MD Personal history of other venous thrombosis and embolism 11/02/[address] [facility] [address] [place] [phone] Carole Quiroz MD Streptococcal infection, unspecified site; Personal history of other venous thrombosis and embolism; Chronic kidney disease, unspecified; Hyperlipidemia, unspecified; Hypothyroidism, unspecified; Anemia, unspecified; Vitamin D deficiency, unspecified; Vitamin B12 deficiency anemia, unspecified; Bacteremia from Last 3 Months Surgical History Surgery Date Site/Laterality Comments OTHER SURGICAL HISTORY 04/20/2022 PROCEDURE: ND WILKES FACETECTOMY & FORAMOTOMY 1 VRT SGM [...] Years (1 of 2 - PCV) 1976 Colorectal Cancer Screening: Colonoscopy 05/27/2022 Depression Screening 05/27/2022 Falls Risk Assessment 05/27/2022 Hepatitis C Screening 05/27/2022 Medicare Annual Wellness Visit 05/27/2022 Osteoporosis Screening (Bone Density Screening) 05/27/2022 Social Influencers of Health Screening 05/27/2022 COVID-19 Vaccine ( - 2023-2 5 season) 2024 06/15/2021, 08/30/2020 Influenza Vaccine (Season Ended) 2025 Hypertension/CHF/CAD Annual BMP Blood Test 11/02/2025 11/02/2024, 09/15/2021, 09/14/2020 Cholesterol Screening (Lipid Panel) 11/02/2029 11/02/2024, 09/15/2021 RSV Immunization Adult Patients Completed 03/19/2023 Zoster Vaccines Completed 03/19/2023, 11/20/2022 HIB Vaccines Aged Out No longer eligi [...] on patient's age to complete this topic Procedures Procedure Name Priority Date/Time Associated Diagnosis Comments VITAMIN B12 AND FOLATE Routine 6:26 AM [...] unspecified Vitamin B12 deficiency anemia, unspecified Bacteremia THYROID STIMULATING HORMONE WITH REFLEX TO FREE [...] unspecified Vitamin B12 deficiency anemia, unspecified Bacteremia from Last 3 Months Results * Thyroid stimulating hormone with reflex to free t4 and free t3 (11/02/2024 6:26 AM EDT) TSH 2.98 0.40 - 4.00 mcIU/mL LAB CHEMISTRY METHOD 11/02/2024 3:[address] [facility] Blood Venous blood specimen / Unknown Venipuncture / Unknown 11/02/2024 6:26 AM EDT 11/02/2024 12:28 PM EDT us Carole Quiroz MD LAB BLOOD ORDERABLES Final Resul t Performing Organization Address [facility] de Phone Number [facility] [address] [place] [address], [place] [phone] * (ABNORMAL) Vitamin B12 and folate (11/02/2024 6:26 AM EDT) [facility] Vitamin B-12 1,079(H) 250 - 900 pcg/mL LAB CHEMISTRY METHOD 11/02/2024 2:[address] [facility] Folate 7.4 2.8 - 17.0 ng/ml LAB CHEMISTRY METHOD 11/02/2024 2:[address] [facility] Blood Venous blood specimen / Unknown Venipuncture / Unknown 11/02/2024 6:26 AM EDT 11/02/2024 12:28 PM EDT us Carole Quiroz MD LAB BLOOD ORDERABLES Final Resul t Performing Organization Address [facility]/ZIP Co de Phone Number [facility] [address] [place] [address], [place] [phone] * (ABNORMAL) Lipid panel with reflex to direct LDL (11/02/2024 6:26 AM EDT) Cholesterol 76 0 - 200 mg/dL LAB CHEMISTRY METHOD 11/02/2024 2:[address] [facility] Triglycerides 88 0 - 150 mg/dL LAB CHEMISTRY METHOD 11/02/2024 2:[address] [facility] HDL 34(L) >=40 mg/dL LAB CHEMISTRY METHOD 11/02/2024 2:[address] [facility] LDL Calculated 24 0 - 100 mg/dL LAB CHEMISTRY METHOD 11/02/2024 2:[address] [facility] VLDL Cholesterol Facundo 17.6 mg/dL LAB CHEMISTRY METHOD 11/02/2024 2:[address] [facility] Non HDL Chol. (LDL+VLDL) 42 <145 mg/dL LAB CHEMISTRY METHOD 11/02/2024 2:[address] [facility] Chol/HDL Ratio 2.2 0.0 - 4.4 LAB CHEMISTRY METHOD 11/02/2024 2:[address] [facility] Blood Venous blood specimen / Unknown Venipuncture / Unknown 11/02/2024 6:26 AM EDT 11/02/2024 12:28 PM EDT us Carole Quiroz MD LAB BLOOD ORDERABLES Final Resul t [facility] [address] [place] [address], * Vitamin D 25 hydroxy (11/02/2024 6:26 AM EDT) Pathologist [facility] Vit D, 25-Hydroxy 32.5 30.0 - 80.0 ng/mL LAB CHEMISTRY METHOD 11/02/2024 3:[address] [facility] Blood Venous blood specimen / Unknown Venipuncture / Unknown 11/02/2024 6:26 AM EDT 11/02/2024 12:28 PM EDT us aCrole Quiroz MD LAB BLOOD ORDERABLES Final Resul t [facility] [address] [place] [address], * (ABNORMAL) Complete blood count (11/02/2024 6:26 AM EDT) Pathologist [facility] WBC 5.6 4.8 - 10.8 K/mcL LAB HEMETOLOGY METHOD 11/02/2024 1:[address] [facility] RBC 2.70(L) 3.80 - 4.80 M/mcL LAB HEMETOLOGY METHOD 11/02/2024 1:[address] [facility] Hemoglobin 8.7(L) 11.5 - 16.0 g/dL LAB HEMETOLOGY METHOD 11/02/2024 1:[address] [facility] Hematocrit 27.8(L) 35.0 - 47.0 % LAB HEMETOLOGY METHOD 11/02/2024 1:[address] [facility] MCV 104.5(H) 79.0 - 98.0 FL LAB HEMETOLOGY METHOD 11/02/2024 1:[address] [facility] MCH 32.7(H) 27.0 - 32.0 pcg LAB HEMETOLOGY METHOD 11/02/2024 1:[address] [facility] MCHC 31.3(L) 32.0 - 37.0 g/dL LAB HEMETOLOGY METHOD 11/02/2024 1:[address] [facility] RDW 18.4(H) 11.0 - 15.0 % LAB HEMETOLOGY METHOD 11/02/2024 1:[address] [facility] Platelets 235 130 - 400 K/mcL LAB HEMETOLOGY METHOD 11/02/2024 1:[address] [facility] MPV 9.7 7.0 - 11.0 FL LAB HEMETOLOGY METHOD 11/02/2024 1:[address] [facility] NRBC 0.0 <1.0 % LAB HEMETOLOGY METHOD 11/02/2024 1:[address] [facility] NRBC Absolute 0.00 <0.10 K/mcL LAB HEMETOLOGY METHOD 11/02/2024 1:[address] [facility] Blood Venous blood specimen / Unknown Venipuncture / Unknown 11/02/2024 6:26 AM EDT 11/02/2024 12:28 PM EDT us Carole Quiroz MD LAB BLOOD ORDERABLES Final Resul t Performing Organization Address City/[facility]/ZIP Co de Phone Number [facility] [address] [place] [address], [place] [phone] * Iron (11/02/2024 6:26 AM EDT) Iron 45 40 - 150 mcg/dL LAB CHEMISTRY METHOD 11/02/2024 2:[address] [facility] Blood Venous blood specimen / Unknown Venipuncture / Unknown 11/02/2024 6:26 AM EDT 11/02/2024 12:28 PM EDT us Carole Quiroz MD LAB BLOOD ORDERABLES Final Resul t [facility] [address] [place] [address], [place] [phone] * (ABNORMAL) Comprehensive metabolic panel (11/02/2024 6:26 AM EDT) Sodium 140 133 - 145 mmol/L LAB CHEMISTRY METHOD 11/02/2024 2:37 PM [facility] Potassium 3.3(L) 3.5 - 5.5 mmol/L LAB CHEMISTRY METHOD 11/02/2024 2:37 PM [facility] Chloride 105 96 - 110 mmol/L LAB CHEMISTRY METHOD 11/02/2024 2:37 PM [facility] CO2 27 21 - 32 mmol/L LAB CHEMISTRY METHOD 11/02/2024 2:37 PM [facility] Anion Gap 8 3 - 11 LAB CHEMISTRY METHOD 11/02/2024 2:37 PM [facility] Glucose 73 70 - 100 mg/dL LAB CHEMISTRY METHOD 11/02/2024 2:37 PM [facility] BUN 20 5 - 25 mg/dL LAB CHEMISTRY METHOD 11/02/2024 2:37 PM [facility] Creatinine 1.14(H) 0.50 - 1.10 mg/dL LAB CHEMISTRY METHOD 11/02/2024 2:37 PM [facility] eGFR 53(L) >=60 mL/min/1. 73m2 LAB CHEMISTRY METHOD 11/02/2024 2:37 PM [facility] Comment:Calculation based on the Chronic Kidney Disease Epidemiology Collaboration (CKD-EPI) equation refit without adjustment for race. BUN/Creatinine Ratio 17.5 LAB CHEMISTRY METHOD 11/02/2024 2:37 PM [facility] Calcium 8.6 8.5 - 10.5 mg/dL LAB CHEMISTRY METHOD 11/02/2024 2:37 PM [facility] AST (SGOT) 40 10 - 42 unit/L LAB CHEMISTRY METHOD 11/02/2024 2:37 PM [facility] ALT (SGPT) 54 10 - 60 unit/L LAB CHEMISTRY METHOD 11/02/2024 2:37 PM [facility] Alkaline Phosphatase 132(H) 42 - 121 unit/L LAB CHEMISTRY METHOD 11/02/2024 2:[address] [facility] Total Protein 6.9 6.0 - 8.0 g/dL LAB CHEMISTRY METHOD 11/02/2024 2:[address] [facility] Albumin 2.8(L) 3.2 - 5.0 g/dL LAB CHEMISTRY METHOD 11/02/2024 2:[address] [facility] Total Bilirubin 0.6 0.0 - 1.4 mg/dL LAB CHEMISTRY METHOD 11/02/2024 2:[address] [facility] Blood Venous blood specimen / Unknown Venipuncture / Unknown 11/02/2024 6:26 AM EDT 11/02/2024 12:28 PM EDT us Carole Quiroz MD LAB BLOOD ORDERABLES Final Resul t [facility] [address] [place] [address], [place] [phone] from Last 3 Months Insurance MEDICARE [facility] Care Teams Art Gilder Relationship Specialty Start Date End Date Tara Nolasco NP [address] [facility] [address] [place] [address] PCP - General 06/21/22
== END 2024-11-10 11:59 | disposition home or self-care (01) ==
LOC: HO.HMCFM 11:00
PROVIDERS: PCP Nurse Practitioner Family; Visit Provider Nurse Practitioner Family
DX: R78.81 Bacteremia (principal); B95.5 Unspecified streptococcus as the cause of diseases classified elsewhere; M54.16 Radiculopathy, lumbar region; R93.1 Abnormal findings on diagnostic imaging of heart and coronary circulation; Z09 Encounter for follow-up examination after completed treatment for conditions other than malignant neoplasm; R54 Age-related physical debility; R33.9 Retention of urine, unspecified; Z91.89 Other specified personal risk factors, not elsewhere classified; D64.9 Anemia, unspecified; R79.89 Other specified abnormal findings of blood chemistry

== ENCOUNTER → 2024-11-10 10:59 | Outpatient (BNVA) | payer MEDICARE, SELFPAY | PROVIDERS: PCP Nurse Practitioner Family; Visit Provider Nurse Practitioner Family | DX: Z13.89 Encounter for screening for other disorder (principal) | CPT/HCPCS: 96127; 99212 ==

== ENCOUNTER 2024-11-10 12:17 | Outpatient (REF) | payer MEDICARE, SELFPAY ==
--- OUTSIDE RECORDS SUMMARY | 2024-11-10 13:21 | XMS_ITS | Clinical Summary ---
Author Organization [address] [facility] Address [address] [place] [address] Phone Care Team Providers Care On Air Director Name Role Phone Tara Nolasco NP Primary Care Provider Encounters Date Type Department Care Team Description 11/07/2024 Lab Requisition [facility] Lab [address] [place] [phone] Carole Quiroz MD Personal history of other venous thrombosis and embolism 11/02/2024 Lab Requisition [facility] Lab [address] [place] [phone] Carole Quiroz MD Streptococcal infection, unspecified site; Personal history of other venous thrombosis and embolism; Chronic kidney disease, unspecified; Hyperlipidemia, unspecified; Hypothyroidism, unspecified; Anemia, unspecified; Vitamin D deficiency, unspecified; Vitamin B12 deficiency anemia, unspecified; Bacteremia from Last 3 Months Surgical History Surgery Date Site/Laterality Comments OTHER SURGICAL HISTORY 04/20/2022 PROCEDURE: TX WILKES FACETECTOMY & FORAMOTOMY 1 VRT SGM [...] LAB CHEMISTRY METHOD 11/02/2024 3:[address] [facility] Blood Venous blood specimen / Unknown Venipuncture / Unknown 11/02/2024 6:26 AM EDT 11/02/2024 12:28 PM EDT us Carole Quiroz MD LAB BLOOD ORDERABLES Final Resul t Performing Organization Address [facility] de Phone Number [facility] [address] [place] [address], [place] [phone] * (ABNORMAL) Vitamin B12 and folate (11/02/2024 6:26 AM EDT) [facility] Vitamin B-12 1,079(H) 250 - 900 pcg/mL LAB CHEMISTRY METHOD 11/02/2024 2:[address] [facility] Folate 7.4 2.8 - 17.0 ng/ml LAB CHEMISTRY METHOD 11/02/2024 2:[address] [facility] Blood Venous blood specimen / Unknown Venipuncture / Unknown 11/02/2024 6:26 AM EDT 11/02/2024 12:28 PM EDT us Carole Quiroz MD LAB BLOOD ORDERABLES Final Resul t Performing Organization Address [facility]/ZIP Co de Phone Number [facility] [address] [place] [address], [place] [phone] * (ABNORMAL) Lipid panel with reflex to direct LDL (11/02/2024 6:26 AM EDT) Cholesterol 76 0 - 200 mg/dL LAB CHEMISTRY METHOD 11/02/2024 2:[address] [facility] Triglycerides 88 0 - 150 mg/dL LAB CHEMISTRY METHOD 11/02/2024 2:[address] [facility] HDL 34(L) >=40 mg/dL LAB CHEMISTRY METHOD 11/02/2024 2:[address] [facility] LDL Calculated 24 0 - 100 mg/dL LAB CHEMISTRY METHOD 11/02/2024 2:[address] [facility] VLDL Cholesterol Facundo 17.6 mg/dL LAB CHEMISTRY METHOD 11/02/2024 2:[address] [facility] Non HDL Chol. (LDL+VLDL) 42 <145 mg/dL LAB CHEMISTRY METHOD 11/02/2024 2:[address] [facility] Chol/HDL Ratio 2.2 0.0 - 4.4 LAB CHEMISTRY METHOD 11/02/2024 2:[address] [facility] Blood Venous blood specimen / Unknown Venipuncture / Unknown 11/02/2024 6:26 AM EDT 11/02/2024 12:28 PM EDT us Carole Quiroz MD LAB BLOOD ORDERABLES Final Resul t [facility] [address] [place] [address], * Vitamin D 25 hydroxy (11/02/2024 6:26 AM EDT) Pathologist [facility] Vit D, 25-Hydroxy 32.5 30.0 - 80.0 ng/mL LAB CHEMISTRY METHOD 11/02/2024 3:[address] [facility] Blood Venous blood specimen / Unknown Venipuncture / Unknown 11/02/2024 6:26 AM EDT 11/02/2024 12:28 PM EDT us Carole Quiroz MD LAB BLOOD ORDERABLES Final Resul t [facility] [address] [place] [address], * (ABNORMAL) Complete blood count (11/02/2024 6:26 AM EDT) Pathologist [facility] WBC 5.6 4.8 - 10.8 K/mcL LAB HEMETOLOGY METHOD 11/02/2024 1:[address] [facility] RBC 2.70(L) 3.80 - 4.80 M/mcL LAB HEMETOLOGY METHOD 11/02/2024 1:[address] [facility] Hemoglobin 8.7(L) 11.5 - 16.0 g/dL LAB HEMETOLOGY METHOD 11/02/2024 1:[address] [facility] Hematocrit 27.8(L) 35.0 - 47.0 % LAB HEMETOLOGY METHOD 11/02/2024 1:[address] [facility] MCV 104.5(H) 79.0 - 98.0 FL LAB HEMETOLOGY METHOD 11/02/2024 1:[address] [facility] MCH 32.7(H) 27.0 - 32.0 pcg LAB HEMETOLOGY METHOD 11/02/2024 1:[address] [facility] MCHC 31.3(L) 32.0 - 37.0 g/dL LAB HEMETOLOGY METHOD 11/02/2024 1:[address] [facility] RDW 18.4(H) 11.0 - 15.0 % LAB HEMETOLOGY METHOD 11/02/2024 1:[address] [facility] Platelets 235 130 - 400 K/mcL LAB HEMETOLOGY METHOD 11/02/2024 1:[address] [facility] MPV 9.7 7.0 - 11.0 FL LAB HEMETOLOGY METHOD 11/02/2024 1:[address] [facility] NRBC 0.0 <1.0 % LAB HEMETOLOGY METHOD 11/02/2024 1:[address] [facility] NRBC Absolute 0.00 <0.10 K/mcL LAB HEMETOLOGY METHOD 11/02/2024 1:[address] [facility] Blood Venous blood specimen / Unknown Venipuncture / Unknown 11/02/2024 6:26 AM EDT 11/02/2024 12:28 PM EDT us Carole Quiroz MD LAB BLOOD ORDERABLES Final Resul t Performing Organization Address City/[facility]/ZIP Co de Phone Number [facility] [address] [place] [address], [place] [phone] * Iron (11/02/2024 6:26 AM EDT) Iron 45 40 - 150 mcg/dL LAB CHEMISTRY METHOD 11/02/2024 2:[address] [facility] Blood Venous blood specimen / Unknown Venipuncture / Unknown 11/02/2024 6:26 AM EDT 11/02/2024 12:28 PM EDT us Carole Quiroz MD LAB BLOOD ORDERABLES Final Resul t [facility] [address] [place] [address], [place] [phone] * (ABNORMAL) Comprehensive metabolic panel (11/02/2024 6:26 AM EDT) Sodium 140 133 - 145 mmol/L LAB CHEMISTRY METHOD 11/02/2024 2:37 PM [facility] Potassium 3.3(L) 3.5 - 5.5 mmol/L LAB CHEMISTRY METHOD 11/02/2024 2:37 PM [facility] Chloride 105 96 - 110 mmol/L LAB CHEMISTRY METHOD 11/02/2024 2:37 PM [facility] CO2 27 21 - 32 mmol/L LAB CHEMISTRY METHOD 11/02/2024 2:37 PM [facility] Anion Gap 8 3 - 11 LAB CHEMISTRY METHOD 11/02/2024 2:37 PM [facility] Glucose 73 70 - 100 mg/dL LAB CHEMISTRY METHOD 11/02/2024 2:37 PM [facility] BUN 20 5 - 25 mg/dL LAB CHEMISTRY METHOD 11/02/2024 2:37 PM [facility] Creatinine 1.14(H) 0.50 - 1.10 mg/dL LAB CHEMISTRY METHOD 11/02/2024 2:37 PM [facility] eGFR 53(L) >=60 mL/min/1. 73m2 LAB CHEMISTRY METHOD 11/02/2024 2:37 PM [facility] Comment:Calculation based on the Chronic Kidney Disease Epidemiology Collaboration (CKD-EPI) equation refit without adjustment for race. BUN/Creatinine Ratio 17.5 LAB CHEMISTRY METHOD 11/02/2024 2:37 PM [facility] Calcium 8.6 8.5 - 10.5 mg/dL LAB CHEMISTRY METHOD 11/02/2024 2:37 PM [facility] AST (SGOT) 40 10 - 42 unit/L LAB CHEMISTRY METHOD 11/02/2024 2:37 PM [facility] ALT (SGPT) 54 10 - 60 unit/L LAB CHEMISTRY METHOD 11/02/2024 2:37 PM [facility] Alkaline Phosphatase 132(H) 42 - 121 unit/L LAB CHEMISTRY METHOD 11/02/2024 2:[address] [facility] Total Protein 6.9 6.0 - 8.0 g/dL LAB CHEMISTRY METHOD 11/02/2024 2:[address] [facility] Albumin 2.8(L) 3.2 - 5.0 g/dL LAB CHEMISTRY METHOD 11/02/2024 2:[address] [facility] Total Bilirubin 0.6 0.0 - 1.4 mg/dL LAB CHEMISTRY METHOD 11/02/2024 2:[address] [facility] Blood Venous blood specimen / Unknown Venipuncture / Unknown 11/02/2024 6:26 AM EDT 11/02/2024 12:28 PM EDT us Carole Quiroz MD LAB BLOOD ORDERABLES Final Resul t [facility] [address] [place] [address], [place] [phone] from Last 3 Months Insurance MEDICARE [facility] Care Teams On Air Director Relationship Specialty Start Date End Date Tara Nolasco NP [address] [facility] [address] [place] [address] PCP - General 06/21/22
--- OUTSIDE RECORDS SUMMARY | 2024-11-10 13:21 | XMS_ITS | Encounter Summary ---
Author Organization [facility] Address [address] [place] [address] Care Team Providers Care Head Charrer Name Role Phone Nolasco, Sonia Rosario HEALTH COMMISSIONER Primary Care Provider [phone] Encounter Details Date Type Department Care Team (Late st Contact Info) Description 11/02/[address] [facility] [address] [facility] [email or web address] [phone] Carole Quiroz MD [address] [place] [address] Streptococcal infection, unspecified site; Personal history of [...] B12 and folate (11/02/2024 6:26 AM EDT) [facility] Vitamin B-12 1,079(H) 250 - 900 pcg/mL LAB CHEMISTRY METHOD 11/02/2024 2:59 PM EDT [facility] Folate 7.4 2.8 - 17.0 ng/ml LAB CHEMISTRY METHOD 11/02/2024 2:59 PM EDT [facility] Blood Venous blood specimen / Unknown Venipuncture / Unknown 11/02/2024 6:26 AM EDT 11/02/2024 12:28 PM EDT us Carole Quiroz MD LAB BLOOD ORDERABLES Final Resul t Performing Organization Address City/[facility]/ZIP Co de Phone Number [facility] [address] [place] [address], [place] [phone] * Vitamin D 25 hydroxy (11/02/2024 6:26 AM EDT) Vit D, 25-Hydroxy 32.5 30.0 - 80.0 ng/mL LAB CHEMISTRY METHOD 11/02/2024 3:10 PM EDT [facility] Blood Venous blood specimen / Unknown Venipuncture / Unknown 11/02/2024 6:26 AM EDT 11/02/2024 12:28 PM EDT us Carole Quiroz MD LAB BLOOD ORDERABLES Final Resul t Performing Organization Address [facility]/ZIP Co de Phone Number [facility] [address] [place] [address], [place] [phone] * Iron (11/02/2024 6:26 AM EDT) Iron 45 40 - 150 mcg/dL LAB CHEMISTRY METHOD 11/02/2024 2:37 PM EDT [facility] Blood Venous blood specimen / Unknown Venipuncture / Unknown 11/02/2024 6:26 AM EDT 11/02/2024 12:28 PM EDT us Carole Quiroz MD LAB BLOOD ORDERABLES Final Resul t Performing Organization Address [facility]/ZIP Co de Phone Number [facility] [address] [place] [address], * Thyroid stimulating hormone with reflex to free t4 and free t3 (11/02/2024 6:26 AM EDT) Pathologist [facility] TSH 2.98 0.40 - 4.00 mcIU/mL LAB CHEMISTRY METHOD 11/02/2024 3:10 PM EDT [facility] Blood Venous blood specimen / Unknown Venipuncture / Unknown 11/02/2024 6:26 AM EDT 11/02/2024 12:28 PM EDT Carole Quiroz MD LAB BLOOD ORDERABLES Final Resul t Performing Organization Address [facility] Co de Phone Number [facility] [address] [place] [address], [place] [phone] * (ABNORMAL) Lipid panel with reflex to direct LDL (11/02/2024 6:26 AM EDT) Pathologist [facility] Cholesterol 76 0 - 200 mg/dL LAB CHEMISTRY METHOD 11/02/2024 2:37 PM EDT [facility] Triglycerides 88 0 - 150 mg/dL LAB CHEMISTRY METHOD 11/02/2024 2:37 PM EDT [facility] HDL 34(L) >=40 mg/dL LAB CHEMISTRY METHOD 11/02/2024 2:37 PM EDT [facility] LDL Calculated 24 0 - 100 mg/dL LAB CHEMISTRY METHOD 11/02/2024 2:37 PM EDT [facility] VLDL Cholesterol Facundo 17.6 mg/dL LAB CHEMISTRY METHOD 11/02/2024 2:37 PM EDT [facility] Non HDL Chol. (LDL+VLDL) 42 <145 mg/dL LAB CHEMISTRY METHOD 11/02/2024 2:37 PM EDT [facility] Chol/HDL Ratio 2.2 0.0 - 4.4 LAB CHEMISTRY METHOD 11/02/2024 2:37 PM [facility] Blood Venous blood specimen / Unknown Venipuncture / Unknown 11/02/2024 6:26 AM EDT 11/02/2024 12:28 PM EDT us Carole Quiroz MD LAB BLOOD ORDERABLES Final Resul t [facility] [address] [place] [address], [place] [phone] * (ABNORMAL) Comprehensive metabolic panel (11/02/2024 6:26 AM EDT) Sodium 140 133 - 145 mmol/L LAB CHEMISTRY METHOD 11/02/2024 2:37 PM [facility] Potassium 3.3(L) 3.5 - 5.5 mmol/L LAB CHEMISTRY METHOD 11/02/2024 2:37 PM [facility] Chloride 105 96 - 110 mmol/L LAB CHEMISTRY METHOD 11/02/2024 2:37 PM [facility] CO2 27 21 - 32 mmol/L LAB CHEMISTRY METHOD 11/02/2024 2:37 PM [facility] Anion Gap 8 3 - 11 LAB CHEMISTRY METHOD 11/02/2024 2:37 PM [facility] Glucose 73 70 - 100 mg/dL LAB CHEMISTRY METHOD 11/02/2024 2:37 PM [facility] BUN 20 5 - 25 mg/dL LAB CHEMISTRY METHOD 11/02/2024 2:37 PM [facility] Creatinine 1.14(H) 0.50 - 1.10 mg/dL LAB CHEMISTRY METHOD 11/02/2024 2:37 PM [facility] eGFR 53(L) >=60 mL/min/1. 73m2 LAB CHEMISTRY METHOD 11/02/2024 2:37 PM EDT [facility] Comment:Calculation based on the Chronic Kidney Disease Epidemiology Collaboration (CKD-EPI) equation refit without adjustment for race. BUN/Creatinine Ratio 17.5 LAB CHEMISTRY METHOD 11/02/2024 2:37 PM [facility] Calcium 8.6 8.5 - 10.5 mg/dL LAB CHEMISTRY METHOD 11/02/2024 2:37 PM [facility] AST (SGOT) 40 10 - 42 unit/L LAB CHEMISTRY METHOD 11/02/2024 2:37 PM [facility] ALT (SGPT) 54 10 - 60 unit/L LAB CHEMISTRY METHOD 11/02/2024 2:37 PM [facility] Alkaline Phosphatase 132(H) 42 - 121 unit/L LAB CHEMISTRY METHOD 11/02/2024 2:37 PM [facility] Total Protein 6.9 6.0 - 8.0 g/dL LAB CHEMISTRY METHOD 11/02/2024 2:37 PM [facility] Albumin 2.8(L) 3.2 - 5.0 g/dL LAB CHEMISTRY METHOD 11/02/2024 2:37 PM [facility] Total Bilirubin 0.6 0.0 - 1.4 mg/dL LAB CHEMISTRY METHOD 11/02/2024 2:37 PM [facility] Blood Venous blood specimen / Unknown Venipuncture / Unknown 11/02/2024 6:26 AM EDT 11/02/2024 12:28 PM EDT us Carole Quiroz MD LAB BLOOD ORDERABLES Final Resul t [facility] [address] [place] [address], [place] [phone] * (ABNORMAL) Complete blood count (11/02/2024 6:26 AM EDT) WBC 5.6 4.8 - 10.8 K/mcL LAB HEMETOLOGY METHOD 11/02/2024 1:58 PM EDT [facility] RBC 2.70(L) 3.80 - 4.80 M/mcL LAB HEMETOLOGY METHOD 11/02/2024 1:[facility] Hemoglobin 8.7(L) 11.5 - 16.0 g/dL LAB HEMETOLOGY METHOD 11/02/2024 1:58 [facility] Hematocrit 27.8(L) 35.0 - 47.0 % LAB HEMETOLOGY METHOD 11/02/2024 1:58 PM [facility] MCV 104.5(H) 79.0 - 98.0 FL LAB HEMETOLOGY METHOD 11/02/2024 1:58 PM [facility] MCH 32.7(H) 27.0 - 32.0 pcg LAB HEMETOLOGY METHOD 11/02/2024 1:58 PM [facility] MCHC 31.3(L) 32.0 - 37.0 g/dL LAB HEMETOLOGY METHOD 11/02/2024 1:58 PM [facility] RDW 18.4(H) 11.0 - 15.0 % LAB HEMETOLOGY METHOD 11/02/2024 1:58 PM [facility] Platelets 235 130 - 400 K/mcL LAB HEMETOLOGY METHOD 11/02/2024 1:58 PM [facility] MPV 9.7 7.0 - 11.0 FL LAB HEMETOLOGY METHOD 11/02/2024 1:58 PM [facility] NRBC 0.0 <1.0 % LAB HEMETOLOGY METHOD 11/02/2024 1:58 PM [facility] NRBC Absolute 0.00 <0.10 K/mcL LAB HEMETOLOGY METHOD 11/02/2024 1:58 PM EDT [facility] Blood Venous blood specimen / Unknown Venipuncture / Unknown 11/02/2024 6:26 AM EDT 11/02/2024 12:28 PM EDT us Carole Quiroz MD LAB BLOOD ORDERABLES Final Resul t [facility] [address] [place] [address], documented in this encounter Visit Diagnoses Diagnosis Streptococcal infection, unspecified site Personal history of other venous thrombosis and embolism Chronic kidney disease, unspecified Hyperlipidemia, unspecified Hypothyroidism, unspecified Anemia, unspecified Vitamin D deficiency, unspecified Vitamin B12 deficiency anemia, unspecified Bacteremia documented in this encounter Care Teams Head Charrer Relationship Specialty Start Date End Date Tara Nolasco NP [address] [place] [address] [address] [place] [address] PCP - General 06/21/22 documented as of this encounter
--- OUTSIDE RECORDS SUMMARY | 2024-11-10 13:21 | XMS_ITS | Encounter Summary ---
Author Organization [facility] Address [address] [place] [address] Care Team Providers Care Sign Shop Supervisor Name Role Phone Tara Nolasco HEAD NECK SURGEON Primary Care Provider Encounter Details Date Type Department Care Team (Late st Contact Info) Description 11/07/[address] [facility] Lab [address] [facility] [place] [address] Carole Quiroz MD [address] [place] [address] Personal history of other venous thrombosis and [...] embolism documented in this encounter Care Teams Sign Shop Supervisor Relationship Specialty Start Date End Date Tara Nolasco NP [address] [place] [address] PCP - General 06/21/22 documented as of this encounter
[2024-11-10 14:25] LABS: Appearance Urine Clear; Baso%MD 0.7 %; Color Urine Yellow; Eos%MD 2.5 %; Glucose Urine UA Negative (Negative); Hematocrit 26.2 % (37.0-47.0); Hemoglobin 8.5 g/dl (12.0-16.0); IG%MD 0.3 %; Leukocyte Esterase Urine Moderate (2+) (Negative); Lymph%MD 14.7 %; Mean Corpuscular HGB Conc 32.4 g/dl (31.0-35.0); Mean Corpuscular Hemoglobin 33.7 pg (27.0-33.0); Mean Platelet Volume 9.3 fL (9.4-12.3); Mono%MD 8.3 %; Neut%MD 73.5 %; Nitrite Urine Negative (Negative); PH 5.5 (5.0-9.0); Platelet Count 258 X10*3/uL (160-400); Red Blood Count 2.52 X10*6/uL (4.20-5.50); Red Cell Distribution Width 18.8 % (11.0-16.0); Specific Gravity - Urine 1.015 (1.005-1.025); UMIC TRIGGER UACC YES; Urine Blood Negative (Negative); Urine Ketones Negative (Negative); Urine Protein Negative (Neg-Trace)
[2024-11-10 14:37] LABS: Alanine Aminotransferase 24 U/L (0-31); Albumin Level 3.3 g/dL (3.5-5.0); Alkaline Phosphatase 114 U/L (39-117); Anion Gap 12 (12-20); Aspartate Amino Transferase 45 U/L (5-31); Bilirubin Total 0.8 mg/dL (0.0-1.0); Blood Urea Nitrogen 23 mg/dL (9-16); Calcium 8.7 mg/dL (8.4-10.2); Carbon Dioxide 25 mmol/L (22-29); Chloride 105 mmol/L (96-108); Estimated Glomerular Filt Rate 48; Glucose Random 81 mg/dL (60-115); Potassium 4.1 mmol/L (3.3-5.1); Sodium 138 mmol/L (135-145); Total Protein 7.3 g/dL (6.5-8.0)
[2024-11-10 14:39] LABS: Bacteria Urine 4+ (None Seen); RBC Urine 0-2 /HPF (0-2); Squamous Epithelial Cell Urine >20 /HPF (0-2); UACC Culture Trigger YES
[2024-11-10 14:57] LABS: Atypical Lymph Absolute Manual 0.1 x10*3/uL; Atypical Lymphs Percent Manual 2 % (0-6); Band Neutrophils Percent 2 % (3-5); Basophils Abs Manual 0.1 X10*3/uL (0.0-0.2); Basophils Percent Manual 1 % (0-2); Eosinophils Absolute Manual 0.1 X10*3/uL (0.0-0.4); Eosinophils Percent Manual 2 % (0-4); Lymphocytes Absolute Manual 0.7 X10*3/uL (1.2-4.9); Lymphocytes Percent Manual 12 % (20-40); Monocytes Absolute Manual 0.5 X10*3/uL (0.1-1.2); Monocytes Percent Manual 8 % (2-11); Neutrophils Absolute Manual 4.5 X10*3/uL (2.0-8.3); Neutrophils Percent Manual 73 % (45-73)
[2024-11-10 15:01] LABS: Macrocytosis 1+ (5-14) /OIF; Ovalocytes 1+ (5-14) /OIF; Platelet Estimate NORMAL (NORMAL); Platelet Morphology Comment NORMAL; RBC Morphology NOTED; Toxic Vacuolation PRESENT
== END 2024-11-10 12:18 | disposition home or self-care (01) ==
LOC: HO.WFDLDS 12:17
PROVIDERS: Referring Provider Internal Medicine Hypertension Specialist; Visit Provider Nurse Practitioner Family
DX: Z09 Encounter for follow-up examination after completed treatment for conditions other than malignant neoplasm (principal); R78.81 Bacteremia; B95.5 Unspecified streptococcus as the cause of diseases classified elsewhere; M54.16 Radiculopathy, lumbar region; R93.1 Abnormal findings on diagnostic imaging of heart and coronary circulation; R33.9 Retention of urine, unspecified; R54 Age-related physical debility; D64.9 Anemia, unspecified; R79.89 Other specified abnormal findings of blood chemistry; Z91.89 Other specified personal risk factors, not elsewhere classified; I70.1 Atherosclerosis of renal artery
CPT/HCPCS: 36415; 80053; 81001; 85007; 85027; 87086; 96127; 99212

== ENCOUNTER 2024-11-12 11:34 | Emergency (ER) | payer MEDICARE, SELFPAY ==
--- NOTE | ~2024-11-12 | XR_ITS ---
EXAMINATION: XR CHEST 1 VIEW HISTORY: Fall, confusion, R/O FX, pneumonia COMPARISON: Comparison is made with the prior examination dated and . FINDINGS: A single AP portable view of the chest performed at 12:54 PM is submitted. The lungs are expanded and clear. There is no pleural effusion, pneumothorax, or pulmonary vascular congestion. The heart is normal in size. There is calcification of the aortic knob. A stent is again noted in the right subclavian artery.. The bones are intact. There are suture anchors in the right humeral head. XR/XR chest 1V IMPRESSION: No acute cardiopulmonary abnormality. Electronically signed by: Jayy Manley MD 11/12/2024 01:29 PM EDT
--- NOTE | ~2024-11-12 | CT_ITS ---
EXAMINATION: CT HEAD WITHOUT CONTRAST CLINICAL INFORMATION: Fall yesterday, increased confusion trouble with w COMPARISON: March 22, 2010 TECHNIQUE: Contiguous axial imaging was performed from the skull base to vertex without intravenous administration of contrast. This CT examination was performed using dose optimization techniques as appropriate, variously including the following: *Automated exposure control *Adjustment of mA and/or kV according to patient size (this includes techniques or standardized protocols for targeted exams where dose is matched to indication/reason for exam; i.e. extremities or head) *Use of iterative reconstruction technique DLP: 683.45 mGy-cm FINDINGS: Bony calvarium is intact. Probable old traumatic deformity nasal bones. Focal nasal septum defect with a 1 cm septated, predominantly gas attenuated lesion with peripheral hyperdensity/calcifications extending into the left and to a lesser extent right anterior nasal cavity. There is a less than 4 mm extra-axial isodensity along the frontoparietal convexities. No acute intraparenchymal hemorrhage, mass effect, midline shift, hydrocephalus or herniation. Chris-white matter differentiation is normal. Bilateral multifocal patchy deep periventricular white matter hypodensities involving centrum semiovale and robbins radiata. Old lacunar infarcts in the basal ganglia. Sellar/suprasellar region demonstrated no gross masses. Craniocervical junction demonstrates normal position of the cerebellar tonsils. Poor dilatation. Tympanic cavities and mastoid cells are aerated. Pneumatized anterior clinoid processes. Calcified plaques in the cavernous supracavernous segments both ICAs. CT/CT Head for ICH IMPRESSION: Concerning subacute to chronic/old subdural hemorrhages, bifrontal parietal convexities. No intraparenchymal hemorrhage or mass effect. White matter disease likely related to small vessel occlusive disease. Global cerebral atrophy. 1 cm lobulated partially calcified septated lesion/mass centered in the anterior nasal septum defect extending to the anterior nasal cavity. Recommend direct inspection. Electronically signed by: Xavier Horowitz MD 11/12/2024 12:08 PM EDT
--- NOTE | ~2024-11-12 | CT_ITS ---
EXAMINATION: CT CERVICAL SPINE WITHOUT CONTRAST CLINICAL INFORMATION: Fall yesterday, increased confusion, neck pain. Rule out fracture. COMPARISON: 03/22/2010. TECHNIQUE: Spiral CT imaging of the cervical spine performed in axial plane without contrast. Multiplanar reformatted images were constructed from the axial data set. This CT examination was performed using dose optimization techniques as appropriate, variously including the following: *Automated exposure control *Adjustment of mA and/or kV according to patient size (this includes techniques or standardized protocols for targeted exams where dose is matched to indication/reason for exam; i.e. extremities or head) *Use of iterative reconstruction technique FINDINGS: There is mild motion degradation, limiting sensitivity of the study. CORONAL ALIGNMENT: -Normal. SAGITTAL ALIGNMENT: -Mild straightening of the normal lordosis. -There is a 2 mm degenerative retrolisthesis of C3 on C4. There is a 2 mm anterolisthesis of C4 on C5. -There is a trace degenerative retrolisthesis C5 on C6. C1-C2 AND CRANIOCERVICAL JUNCTION: -Intact and normally aligned bilaterally. There are degenerative changes of the anterior atlantoaxial joint. VERTEBRAL BODIES AND FACETS: -There is no fracture, compression deformity, traumatic subluxation, or suspicious bone lesion. -There are multilevel degenerative facet changes most notable in the upper cervical spine bilaterally. There is normal facet alignment. DISCS: -Mild disc degeneration present throughout the cervical spine. CENTRAL CANAL: -No evidence of high-grade central canal narrowing or large disc herniation allowing for modality limitations. PREVERTEBRAL AND PARAVERTEBRAL SOFT TISSUES: -No prevertebral or paravertebral soft tissue edema or fluid collection. -Normal thyroid. -Moderate left carotid bulb calcification. -There is a stent within the proximal right subclavian artery. LUNG APICES: -Imaged lung apices are clear. CT/CT cervical spine wo IV con IMPRESSION: 1. No CT evidence of acute cervical spine fracture or injury. 2. Mild to moderate degenerative spondylosis. 3. Stent within the proximal right subclavian artery. Electronically signed by: Ricky Iverson MD 11/12/2024 12:34 PM EDT
--- NOTE | 2024-11-12 11:39 | ED.NEUROSD ---
HPI - Neuro Symptoms/Deficit General Chief Complaint: Stroke Stated Complaint: PER EMS ?STROKE LKWT T-1, FALL, +HS, +BT, BLUR/ZHOU Time Seen by Provider: 11/12/24 11:38 Source: EMS Mode of arrival: EMS Limitations: other (Patient confused) History of Present Illness ED Provider: Dr. Virgilio Layne HPI Narrative: 69-year-old female with a history of peripheral artery disease, degenerative disc disease of the lumbar area, spinal stenosis, hypothyroidism, anxiety, COPD, streptococcal bacteremia, hyponatremia, depression, anxiety , chronic kidney disease stage 3, GERD who was brought to emergency department by ambulance as a stroke alert. Information was obtained from the paramedics, the patient is confused in his not answering questions, there is no family members here at this time. Patient was confused since 11/09/2024 (3 days prior to evaluation). The patient had an unwitnessed fall yesterday afternoon. Last well-known time was yesterday at noon time. Today the patient was complaining of headache, dizziness and apparently was more confused therefore family called an ambulance. Paramedics were portal blood pressure of 104/54, heart rate of 70, respirations 16, point of glucose glucose 170. I did examine the patient on the cut off worker stretcher. Patient does have ecchymosis to the right side of her head and face with no tenderness to palpation over these areas, no hematomas. The patient is on Plavix. The patient has a inpatient adult discharge instruction packet from [facility] dated 10/30/2024. Her discharge diagnosis at that time was ?fall from bed, anxiety, bacteremia due to Streptococcus species, carotid artery stenosis, kidney disease, depression, history of DVT, hypothyroidism, left leg pain, personal vascular disease ?. Patient was hospitalized here at [facility] on 07/12/2024 until 07/14/2024 for bleeding gums after a having 9 teeth extracted and dark stools. The patient was on Eliquis for PAD The patient's daughter, Leila came to the emergency department. She told me that her mother has been confused on and off for at least 2 days. She had a fall 2 days ago and a fall yesterday between 14:00 and 16:00 with last well-known time being 13:30 hours yesterday. The daughter confirms that the patient is only on Plavix and no other anticoagulants. Her daughter is concerned that the patient may have an infection since she had intermittent confusion prior to her [facility] admission for streptococcal bacteremia. [facility] felt that the streptococcal bacteremia was related to the patient's dental extractions/poor dentition Related Data Home Medications ?Medication ?Instructions ?Recorded ?Confirmed gabapentin 600 mg tablet 1,200 mg PO BEDTIME 07/12/24 11/10/24 ipratropium 0.5 mg-albuterol 3 mg 3 ml inhalation Q6H PRN wheezing 07/12/24 11/10/24 (2.5 mg base)/3 mL nebulization soln clopidogrel 75 mg tablet mg PO DAILY 08/21/24 11/10/24 Previous Rx's ?Medication ?Instructions ?Recorded aspirin 81 mg tablet,delayed 81 mg PO DAILY #30 tabs 08/28/23 release (Adult Low Dose Aspirin) nebulizer accessories #1 ea 11/05/23 nebulizers #1 ea 11/05/23 atenolol 50 mg tablet 50 mg PO BID 90 days #180 tabs 05/15/24 rosuvastatin 10 mg tablet 10 mg PO DAILY #90 tabs 06/23/24 budesonide 0.25 mg/2 mL suspension 0.25 mg (2 mL) inhalation BID #60 07/02/24 for nebulization mL bupropion HCl 200 mg tablet,12 hr 200 mg PO QAM #90 tabs 07/09/24 sustained-release omeprazole 20 mg capsule,delayed 20 mg PO BID #180 caps 08/10/24 release albuterol sulfate 90 mcg/actuation 2 puff PO Q4-6H PRN for wheezing 08/13/24 aerosol inhaler #8.5 grams lorazepam 0.5 mg tablet 0.5 mg PO BEDTIME PRN anxiety #30 08/27/24 tabs furosemide 20 mg tablet 20 mg PO DAILY #90 tabs 09/16/24 isosorbide mononitrate 30 mg 30 mg PO DAILY #90 tabs 09/16/24 tablet,extended release 24 hr baclofen 10 mg tablet 10 mg PO BEDTIME PRN muscle spasm 10/21/24 #30 tabs hydralazine 50 mg tablet 50 mg PO TID #90 tabs 10/21/24 levothyroxine 75 mcg tablet 75 mcg PO DAILY #90 tabs 10/21/24 sertraline 100 mg tablet 100 mg PO DAILY #90 tabs 11/06/24 tramadol 100 mg tablet 100 mg PO Q6H PRN pain 14 days #56 11/10/24 tabs Allergies Allergy/AdvReac Type Severity Reaction Status Date / Time codeine Allergy Unknown Unknown Verified 11/12/24 11:47 Review of Systems Review of Systems: Yes Unobtainable due to mental condition [facility] Past Medical History Medical History (Updated 11/12/24 @ 15:02 by Virgilio Layne MD) History of stent insertion of renal artery (~07/2024) Stenosis of right carotid artery greater than 50% HTN (hypertension) Personal history of nicotine dependence Acute bacterial sinusitis 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 Arthritis of left hip Disc degeneration, lumbar Lumbar facet arthropathy Stenosis, spinal, lumbar Sacroiliac joint pain Lumbar radicular pain Rhinitis Hypothyroidism Anxiety Tachycardia Cough COPD (chronic obstructive pulmonary disease) Surgical History (Updated 10/21/24 @ 18:37 by Blank Rodriguez [facility]) S/P vascular bypass (~08/2024) History of carotid endarterectomy (~07/2024) No pertinent past surgical history Social History Social History Household Members: Children Household Members Other:: daughter Housing: House Are you a primary rn wound care to a significant other at home: No Do you presently have visiting nurse or other home services: No Alcohol intake: current Alcohol intake frequency: holidays/special occasions only Alcohol type: beer Patient Tobacco Use Status: Former Tobacco user Tobacco use type: Cigarette Cigarette Packs Per Day: 0 Cigarettes Per Day: 2 e-Cigarette/Vaping Use: Never Used Advance Directives: No Advance Directives Information Provided: Yes service: No Current occupational status: retired Current occupation: right handed, retired Sexual orientation: Unable to collect Gender identity: Unable to collect Cognitive needs: No Hearing needs: No Vision needs: Yes (wears glasses to drive.) Physical Exam Vital Signs: Vital Signs: Last Vital Signs Temp 99.0 F 11/12/24 12:18 Pulse 68 11/12/24 12:18 Resp 16 11/12/24 12:18 BP 145/48 H 11/12/24 12:18 Pulse Ox 100 11/12/24 12:18 O2 Del Method Room Air 11/12/24 12:18 BMI result Body Mass Index 26.2 Vital signs revealed an elevated blood pressure of 145/48 otherwise unremarkable Exam: General: Awake, oriented to person, identified name, age, unable to identify month or year, does appear to have word-finding difficulty Head: Normocephalic, patient has ecchymosis to the right temporal area, right zygomatic area. These areas are not tender to palpation. No hematomas EENT: PERRL, Lids normal, sclera normal, conjunctiva normal, nose normal , ears normal, throat without erythema or exudates Neck: Supple, no adenopathy Lung: breath sounds symmetric, no wheezing, rales or rhonchi Chest: symmetric movement, nontender Heart: regular rate and rhythm, normal S1, S2 no murmurs or rubs Abdomen: soft, non-tender, nondistended, normal bowel sounds Back: no vertebral tenderness, no CVAT Extremities: no deformities, moves all extremities symmetrically Skin: Patient has multiple areas of bruising/ecchymosis to her lower extremities bilaterally, she also has ecchymosis to her right lateral hip and posterior buttocks area. She also has ecchymosis to her thoracic and lumbar back area with no point tenderness of her vertebrae and no significant tenderness with palpation over the areas of ecchymosis Neuro: Awake, alert, oriented to person but not month or year, occasional difficulty with word finding, cranial nerves intact, moves all extremities symmetrically Psych: Pleasant, cooperative Medical Decision Making Medical Decision Making MDM Narrative: 69-year-old female with a history of peripheral artery disease, degenerative disc disease of the lumbar area, spinal stenosis, hypothyroidism, anxiety, COPD, streptococcal bacteremia, hyponatremia, depression, anxiety , chronic kidney disease stage 3, GERD who was brought to emergency department by ambulance as a stroke alert. Information was obtained from the paramedics, the patient is confused in his not answering questions, there is no family members here at this time. Patient was confused since 11/09/2024 (3 days prior to evaluation). Daughter states the patient fell 2 days prior and yesterday. Daughter states the last well-known time was 13:30 hours yesterday and the daughter believes the patient fell sometime between 1400 and 16:00 hours. Daughter states that over the last 3 days the patient has been confused on and off and seemed more confused this morning. Patient had a recent hospitalization at [facility] on 10/23/2024 for fall out of bed and streptococcal bacteremia felt to be secondary to dental extractions/poor dentition . Patient was also admitted at [facility] from 07/12/2024 until 07/14/2024 for bleeding from her dental extractions , patient was also on Eliquis at that time. Patient is only on Plavix at this time. Vital signs were normal. Physical examination did reveal ecchymosis to the right side of her face and head with no hematomas or tenderness with palpation of this area. Patient also has bilateral ecchymosis to her lower extremities, right lateral hip and posterior buttocks area as well as over her thoracic and lumbar spine. These areas of ecchymosis are not tender to palpation and there is no large hematoma appreciated by me. Patient has a occasional difficulty with word finding otherwise her neurologic exam is unremarkable with no focal deficits. 12:14 Differential diagnosis: ?Includes but is not limited to stroke, intracranial bleed, skull fracture, bacteremia, urinary tract infection, pneumonia, electrolyte abnormalities, anemia Course: 13:48 My interpretation patient's laboratory evaluation is as follows: WBC was normal 5800 with a chronic microcytic anemia with an H&H of 8.6 and 25.8 with MCV of 103.2. CRP is elevated 5.1. ESR is elevated 119. Urinalysis was negative. Chest x-ray was unremarkable. CT scan of the brain without IV contrast is concerning for ?4 mm extra-axial isodensity along the frontoparietal convexities ?with no acute intraparenchymal hemorrhage, mass or midline shift. 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 Radiologist also incidentally noted a 1 cm lobulated, partially calcified septal lesion/mass centered in the anterior nasal septum. No acute intraparenchymal hemorrhage, mass effect, midline shift, hydrocephalus or herniation. 14:37 Given the subdural hematoma I did discuss the patient's presentation with the trauma surgeon at [facility] and he did accept the patient as an ED to ED transfer. I also spoke to the [facility] ED attending, Dr. Andino and did tell Dr. Andino about the nasal septum defect in the possibility of bacteremia again as a cause of her confusion. I did order Zosyn 4.5 g IV to cover her for possible infectious source until blood cultures are available. I did discuss my concerns with the patient and the patient's daughter. I also discuss the knee to transferred to the trauma center and they both are in agreement. The patient will be transferred by ALS ambulance as an ED to ED transfer to [facility]. Lab Data MDM Lab Attestation statement: I reviewed the patient's lab results. 11/12/24 12:10 11/12/24 12:09 Labs: Lab Results 11/12/24 11/12/24 11/12/24 Range/Units 11:37 11:38 12:09 WBC (4.8-10.8) X10*3/uL RBC (4.20-5.50) X10*6/uL Hgb (12.0-16.0) g/dl Hct (37.0-47.0) % MCV (80.0-98.0) fL MCH (27.0-33.0) pg MCHC (31.0-35.0) g/dl RDW (11.0-16.0) % Plt Count (160-400) X10*3/uL MPV (9.4-12.3) fL Immature Gran % (Auto) (0.0-0.4) % Neut % (Auto) (45-73) % Lymph % (Auto) (20-40) % [place] % (Auto) (2-11) % Eos % (Auto) (0-4) % Baso % (Auto) (0-2) % Lymph # (Auto) (1.2-4.9) X10*3/uL [place] # (Auto) (0.1-1.2) X10*3/uL Eos # (Auto) (0.0-0.4) X10*3/uL Baso # (Auto) (0.0-0.2) X10*3/uL Abs Immat Gran (auto) (0.00-0.03) X10*3/uL Absolute Neuts (auto) (2.0-8.3) x10*3/uL Absolute Nucleated RBC (0.0-0.012) X10*3/uL Nucleated RBC % (auto) (0.0-0.2) /100WBC ESR 119 H (0-20) MM/HR PT (10.9-12.4) SEC Whole Blood PT 13.6 H (11.1-13.5) sec INR (0.9-1.1) Whole Blood INR 1.1 (0.9-1.1) APTT 26.3 (26.0-36.8) SEC Sodium 142 (135-145) mmol/L Potassium 3.9 (3.3-5.1) mmol/L Chloride 108 (96-108) mmol/L Carbon Dioxide 25 (22-29) mmol/L Anion Gap 13 (12-20) BUN 18 H (9-16) mg/dL Creatinine 0.96 (0.5-1.4) mg/dL Estim Creat Clear Calc 58.3 Estimated GFR 58 POC Glucose 98 (60-115) mg/dL Random Glucose 90 (60-115) mg/dL Lactic Acid (0.5-2.0) mmol/L Calcium 9.0 (8.4-10.2) mg/dL Total Bilirubin 1.0 (0.0-1.0) mg/dL Direct Bilirubin 0.4 (0.0-0.5) mg/dL AST 45 H (5-31) U/L ALT 22 (0-31) U/L Alkaline Phosphatase 106 (39-117) U/L Troponin I High Sens < 2.7 (<3.5-17.0) ng/L C-Reactive Protein 5.50 H (< or = 0.50) mg/dL Total Protein 7.3 (6.5-8.0) g/dL Albumin 3.2 L (3.5-5.0) g/dL Urine Color Urine Appearance Urine pH (5.0-9.0) Ur Specific [place] (1.005-1.025) Urine Protein (Neg-Trace) mg/dL Urine Glucose (UA) (Negative) mg/dL Urine Ketones (Negative) mg/dL Urine Blood (Negative) Urine Nitrite (Negative) Ur Leukocyte Esterase (Negative) Urine RBC (0-2) /HPF Urine WBC (0-5) /HPF Ur Squamous Epith Cells (0-2) /HPF Urine Bacteria (None Seen) Hyaline Casts (0-2) /LPF Influenza Type A (PCR) (Negative) Influenza Type B (PCR) (Negative) RSV RNA Qual (PCR) (Negative) SARS-CoV-2 RNA (RT-PCR) (Negative) 11/12/24 11/12/24 Range/Units 12:10 13:24 WBC 5.8 (4.8-10.8) X10*3/uL RBC 2.50 L (4.20-5.50) X10*6/uL Hgb 8.6 L (12.0-16.0) g/dl Hct 25.8 L (37.0-47.0) % MCV 103.2 H (80.0-98.0) fL MCH 34.4 H (27.0-33.0) pg MCHC 33.3 (31.0-35.0) g/dl RDW 18.6 H (11.0-16.0) % Plt Count 226 (160-400) X10*3/uL MPV 9.2 L (9.4-12.3) fL Immature Gran % (Auto) 0.5 H (0.0-0.4) % Neut % (Auto) 71.6 (45-73) % Lymph % (Auto) 15.8 L (20-40) % [place] % (Auto) 9.5 (2-11) % Eos % (Auto) 2.1 (0-4) % Baso % (Auto) 0.5 (0-2) % Lymph # (Auto) 0.9 L (1.2-4.9) X10*3/uL [place] # (Auto) 0.6 (0.1-1.2) X10*3/uL Eos # (Auto) 0.1 (0.0-0.4) X10*3/uL Baso # (Auto) 0.0 (0.0-0.2) X10*3/uL Abs Immat Gran (auto) 0.03 (0.00-0.03) X10*3/uL Absolute Neuts (auto) 4.2 (2.0-8.3) x10*3/uL Absolute Nucleated RBC 0.000 (0.0-0.012) X10*3/uL Nucleated RBC % (auto) 0.0 (0.0-0.2) /100WBC ESR (0-20) MM/HR PT 13.3 H (10.9-12.4) SEC Whole Blood PT (11.1-13.5) sec INR 1.2 H (0.9-1.1) Whole Blood INR (0.9-1.1) APTT (26.0-36.8) SEC Sodium (135-145) mmol/L Potassium (3.3-5.1) mmol/L Chloride (96-108) mmol/L Carbon Dioxide (22-29) mmol/L Anion Gap (12-20) BUN (9-16) mg/dL Creatinine (0.5-1.4) mg/dL Estim Creat Clear Calc Estimated GFR POC Glucose (60-115) mg/dL Random Glucose (60-115) mg/dL Lactic Acid 1.2 (0.5-2.0) mmol/L Calcium (8.4-10.2) mg/dL Total Bilirubin (0.0-1.0) mg/dL Direct Bilirubin (0.0-0.5) mg/dL AST (5-31) U/L ALT (0-31) U/L Alkaline Phosphatase (39-117) U/L Troponin I High Sens (<3.5-17.0) ng/L C-Reactive Protein (< or = 0.50) mg/dL Total Protein (6.5-8.0) g/dL Albumin (3.5-5.0) g/dL Urine Color Yellow Urine Appearance Clear Urine pH 6.0 (5.0-9.0) Ur Specific [place] 1.010 (1.005-1.025) Urine Protein Negative (Neg-Trace) mg/dL Urine Glucose (UA) Negative (Negative) mg/dL Urine Ketones Negative (Negative) mg/dL Urine Blood Negative (Negative) Urine Nitrite Negative (Negative) Ur Leukocyte Esterase Negative (Negative) Urine RBC 0-2 (0-2) /HPF Urine WBC 0-5 (0-5) /HPF Ur Squamous Epith Cells 0-2 (0-2) /HPF Urine Bacteria None Seen (None Seen) Hyaline Casts 0-2 (0-2) /LPF Influenza Type A (PCR) NEGATIVE (Negative) Influenza Type B (PCR) NEGATIVE (Negative) RSV RNA Qual (PCR) NEGATIVE (Negative) SARS-CoV-2 RNA (RT-PCR) NEGATIVE (Negative) Independent Interpretation I performed an independent interpretation of an: Plain X-Ray Interpretation: My independent interpretation patient's one-view chest x-ray is as follows: No acute disease My independent interpretation of the patient's 12 EKG done on 11/12/2024 at 11:56 hours is as follows: Normal sinus rhythm rate of 70, normal [place] interval, QRS duration QTC interval, artifact in the baseline, no ST segment elevation, no ST segment depression, no PACs, no PVCs, no significant T-wave abnormalities. Compared to an EKG dated 07/12/2024 at 16:43 hours, previous QTC was prolonged at 493 milliseconds otherwise no significant change. Radiology Impression Discussion of test interpretation with radiology: I have reviewed the radiologist's reading. Radiologist Impression: XR chest 1V IMPRESSION: No acute cardiopulmonary abnormality. Electronically signed by: Jayy Manley MD 11/12/2024 01:[address] HEAD WITHOUT CONTRAST CLINICAL INFORMATION: Fall yesterday, increased confusion trouble with w COMPARISON: March 22, 2010 FINDINGS: Bony calvarium is intact. Probable old traumatic deformity nasal bones. Focal nasal septum defect with a 1 cm septated, predominantly gas attenuated lesion with peripheral hyperdensity/calcifications extending into the left and to a lesser extent right anterior nasal cavity. There is a less than 4 mm extra-axial isodensity along the frontoparietal convexities. No acute intraparenchymal hemorrhage, mass effect, midline shift, hydrocephalus or herniation. Chris-white matter differentiation is normal. Bilateral multifocal patchy deep periventricular white matter hypodensities involving centrum semiovale and robbins radiata. Old lacunar infarcts in the basal ganglia. Sellar/suprasellar region demonstrated no gross masses. Craniocervical junction demonstrates normal position of the cerebellar tonsils. Poor dilatation. Tympanic cavities and mastoid cells are aerated. Pneumatized anterior clinoid processes. Calcified plaques in the cavernous supracavernous segments both ICAs. IMPRESSION: Concerning subacute to chronic/old subdural hemorrhages, bifrontal parietal convexities. No intraparenchymal hemorrhage or mass effect. White matter disease likely related to small vessel occlusive disease. Global cerebral atrophy. 1 cm lobulated partially calcified septated lesion/mass centered in the anterior nasal septum defect extending to the anterior nasal cavity. Recommend direct inspection. Electronically signed by: Xavier Horowitz MD 11/12/2024 12:[address] cervical spine wo IV con IMPRESSION: 1. No CT evidence of acute cervical spine fracture or injury. 2. Mild to moderate degenerative spondylosis. 3. Stent within the proximal right subclavian artery. Electronically signed by: Ricky Iverson MD 11/12/2024 12:34 PM EDT RP Critical Care Time Critical Care Time Critical Care Time: Yes Total Critical Care Time: 45 Attestation: Critical Care: The patient was critically ill with a high probability of imminent or life threatening deterioration. I spent greater than 30 minutes of discontinuous time evaluating the patient,delivering critical care at the bedside, discussing and evaluating pertinent data with consultants. Critical care time does not include time spent performing separately billable procedures or teaching. Total time spent performing critical care was 45 minutes. Discharge Plan Discharge Clinical Impression: Acute subdural hematoma, Multiple falls, Intermittent confusion, Elevated erythrocyte sedimentation rate, CRP elevated, Nasal mass Patient Disposition: [facility] Transfer Details: ED to ED transfer [facility], head trauma Prescriptions: No Action aspirin [Adult Low Dose Aspirin] 81 mg tablet,delayed release (DR/EC) 81 mg PO DAILY Qty: 30 0RF (DME) nebulizers Misc See Rx Instructions .Route Qty: 1 0RF Rx Instructions: Use nebulizer q 6 hrs prn wheezing, sob, cough DX: COPD (DME) nebulizer accessories Kit See Rx Instructions .Route Qty: 1 0RF Rx Instructions: Use nebulizer q 6 hrs prn wheezing, sob, cough DX: COPD atenolol 50 mg tablet 50 mg PO BID 90 Days Qty: 180 2RF bupropion HCl 200 mg tablet sustained-release 12 hr 200 mg PO QAM Qty: 90 2RF omeprazole 20 mg capsule,delayed release(DR/EC) 20 mg PO BID Qty: 180 1RF albuterol sulfate 90 mcg/actuation HFA aerosol inhaler 2 puff PO Q4-6H PRN (Reason: for wheezing) Qty: 8.5 0RF isosorbide mononitrate 30 mg tablet extended release 24 hr 30 mg PO DAILY Qty: 90 0RF furosemide 20 mg tablet 20 mg PO DAILY Qty: 90 0RF hydralazine 50 mg tablet 50 mg PO TID Qty: 90 0RF sertraline 100 mg tablet 100 mg PO DAILY Qty: 90 1RF gabapentin 600 mg tablet 1,200 mg PO BEDTIME ipratropium-albuterol 0.5 mg-3 mg(2.5 mg base)/3 mL solution for nebulization 3 ml inhalation Q6H PRN (Reason: wheezing) rosuvastatin 10 mg tablet 10 mg PO DAILY Qty: 90 1RF budesonide 0.25 mg/2 mL suspension for nebulization 0.25 mg inhalation BID Qty: 60 2RF lorazepam 0.5 mg tablet 0.5 mg PO BEDTIME PRN (Reason: anxiety) Qty: 30 1RF tramadol 100 mg tablet 100 mg PO Q6H PRN (Reason: pain) 14 Days Qty: 56 0RF clopidogrel 75 mg tablet PO DAILY baclofen 10 mg tablet 10 mg PO BEDTIME PRN (Reason: muscle spasm) Qty: 30 0RF levothyroxine 75 mcg tablet 75 mcg PO DAILY Qty: 90 2RF Referrals: Blank Rodriguez, [employer] [Primary Care Provider] - Print Language: Danish
--- NOTE | 2024-11-12 11:40 | ECG_ITS ---
Test Reason : ? stroke Blood Pressure : */* mmHG Vent. Rate : 70 BPM Atrial Rate : 70 BPM P-R Int : 110 ms QRS Dur : 78 ms QT Int : 432 ms P-R-T Axes : -25 47 52 degrees QTcB Int : 466 ms Sinus rhythm with short SC Otherwise normal ECG When compared with ECG of 12-Jul-2024 16:43, SC interval has decreased Referred By: Virgilio Layne Electronically Signed By: BERNARD KIM MD
[2024-11-12 11:43] VITALS: BP 145/48; PULSE 67; RESP 14; TEMP 37.2; O2SAT 98; BMI 26.2
[2024-11-12 11:44] LABS: Prothrombin Time Whole Bld POC 13.6 sec (11.1-13.5); ~PT, ~INR - Anti Coag Clinic 1.1 (0.9-1.1)
[2024-11-12 11:45] LABS: Glucose, Whole Blood 98 mg/dL (60-115)
[2024-11-12 12:15] LABS: MANUAL DIFF FLAG NO
[2024-11-12 12:17] LABS: Basophils Percent Auto 0.5 % (0-2); Eosinophils Absolute Auto 0.1 X10*3/uL (0.0-0.4); Eosinophils Percent Auto 2.1 % (0-4); Hematocrit 25.8 % (37.0-47.0); Hemoglobin 8.6 g/dl (12.0-16.0); Imm Gran Abs Auto 0.03 X10*3/uL (0.00-0.03); Imm Gran Pct Auto 0.5 % (0.0-0.4); Lymphocytes Absolute Auto 0.9 X10*3/uL (1.2-4.9); Lymphocytes Percent Auto 15.8 % (20-40); Mean Corpuscular HGB Conc 33.3 g/dl (31.0-35.0); Mean Corpuscular Hemoglobin 34.4 pg (27.0-33.0); Mean Corpuscular Volume 103.2 fL (80.0-98.0); Mean Platelet Volume 9.2 fL (9.4-12.3); Monocytes Absolute Auto 0.6 X10*3/uL (0.1-1.2); Monocytes Percent Auto 9.5 % (2-11); Neutrophils Absolute Auto 4.2 x10*3/uL (2.0-8.3); Neutrophils Percent Auto 71.6 % (45-73); Platelet Count 226 X10*3/uL (160-400); Red Cell Distribution Width 18.6 % (11.0-16.0); White Blood Count 5.8 X10*3/uL (4.8-10.8)
[2024-11-12 12:18] VITALS: BP 145/48; PULSE 68; RESP 16; TEMP 37.2; O2SAT 100
[2024-11-12 12:28] LABS: INTERNATIONAL NORM RATIO 1.2 (0.9-1.1); Prothrombin Time 13.3 SEC (10.9-12.4)
[2024-11-12 12:31] LABS: Partial Thromboplastin Time 26.3 SEC (26.0-36.8)
[2024-11-12 12:34] LABS: Lactic Acid 1.2 mmol/L (0.5-2.0)
[2024-11-12 12:37] LABS: Alanine Aminotransferase 22 U/L (0-31); Albumin Level 3.2 g/dL (3.5-5.0); Alkaline Phosphatase 106 U/L (39-117); Anion Gap 13 (12-20); Aspartate Amino Transferase 45 U/L (5-31); Bilirubin Direct 0.4 mg/dL (0.0-0.5); Blood Urea Nitrogen 18 mg/dL (9-16); Carbon Dioxide 25 mmol/L (22-29); Chloride 108 mmol/L (96-108); Creatinine Clr Calc Pharmacy 58.3; Estimated Glomerular Filt Rate 58; Glucose Random 90 mg/dL (60-115); Potassium 3.9 mmol/L (3.3-5.1); Sodium 142 mmol/L (135-145); Total Protein 7.3 g/dL (6.5-8.0)
[2024-11-12 12:52] LABS: Troponin-I High Sensitivity < 2.7 ng/L (<3.5-17.0)
[2024-11-12 12:55] LABS: Erythrocyte Sedimentation Rate 119 MM/HR (0-20)
[2024-11-12 12:58] LABS: Influenza A PCR NEGATIVE (Negative); Influenza B PCR NEGATIVE (Negative); Resp Syncy Virus RNA Qual PCR NEGATIVE (Negative); SARS COV2 PCR INHOUSE NEGATIVE (Negative)
[2024-11-12 13:33] LABS: Appearance Urine Clear; Color Urine Yellow; Glucose Urine UA Negative (Negative); Leukocyte Esterase Urine Negative (Negative); Nitrite Urine Negative (Negative); Urine Blood Negative (Negative); Urine Ketones Negative (Negative); Urine Protein Negative (Neg-Trace)
[2024-11-12 13:35] LABS: Bacteria Urine None Seen (None Seen); Hyaline Casts Urine 0-2 /LPF (0-2); RBC Urine 0-2 /HPF (0-2); Squamous Epithelial Cell Urine 0-2 /HPF (0-2); WBC Urine 0-5 /HPF (0-5)
--- OUTSIDE RECORDS SUMMARY | 2024-11-12 13:36 | XMS_ITS | Encounter Summary ---
Author Organization [facility] Address [address] [place] [address] Care Team Providers Care Team Leader/Research Psychologist Name Role Phone Nolasco, Sonia Rosario [employer]UNDROM[employer] WORKER Primary Care Provider [phone] Encounter Details Date Type Department Care Team (Late st Contact Info) Description 11/02/2024 Lab Requisition [facility] Main Lab [address] [place] [phone] Carole Quiroz MD [address] [place] [address] Streptococcal infection, unspecified site; Personal history of [...] B12 and folate (11/02/2024 6:26 AM EDT) [facility] Vitamin B-12 1,079(H) 250 - 900 [...] ORDERABLES Final Resul t Performing Organization Address City/[facility]/ZIP Co de Phone Number [facility] [address] [place] [address], [place] [phone] * Vitamin D 25 hydroxy (11/02/2024 6:26 AM EDT) Vit D, 25-Hydroxy 32.5 30.0 - 80.0 ng/mL LAB CHEMISTRY METHOD 11/02/2024 3:[address] [facility] Blood Venous blood specimen / Unknown Venipuncture / Unknown 11/02/2024 6:26 AM EDT 11/02/2024 12:28 PM EDT us Carole Quiroz MD LAB BLOOD ORDERABLES Final Resul t Performing Organization Address [facility]/ZIP Co de Phone Number [facility] [address] [place] [address], [place] [phone] * Iron (11/02/2024 6:26 AM EDT) Iron 45 40 - 150 mcg/dL LAB CHEMISTRY METHOD 11/02/2024 2:[address] [facility] Blood Venous blood specimen / Unknown Venipuncture / Unknown 11/02/2024 6:26 AM EDT 11/02/2024 12:28 PM EDT us Carole Quiroz MD LAB BLOOD ORDERABLES Final Resul t Performing Organization Address [facility]/ZIP Co de Phone Number [facility] [address] [place] [address], * Thyroid stimulating hormone with reflex to free t4 and free t3 (11/02/2024 6:26 AM EDT) Pathologist [facility] TSH 2.98 0.40 - 4.00 mcIU/mL LAB CHEMISTRY METHOD 11/02/2024 3:[address] [facility] Blood Venous blood specimen / Unknown Venipuncture / Unknown 11/02/2024 6:26 AM EDT 11/02/2024 12:28 PM EDT Carole Quiroz MD LAB BLOOD ORDERABLES Final Resul t Performing Organization Address [facility] Co de Phone Number [facility] [address] [place] [address], [place] [phone] * (ABNORMAL) Lipid panel with reflex to direct LDL (11/02/2024 6:26 AM EDT) Pathologist [facility] Cholesterol 76 0 - 200 mg/dL LAB [...] 4.4 LAB CHEMISTRY METHOD 11/02/2024 2:37 PM [facility] Blood Venous blood specimen / Unknown Venipuncture / Unknown 11/02/2024 6:26 AM EDT 11/02/2024 12:28 PM EDT us Carole Quiroz MD LAB BLOOD ORDERABLES Final Resul t [facility] [address] [place] [address], [place] [phone] * (ABNORMAL) Comprehensive metabolic panel (11/02/2024 6:26 AM EDT) Sodium 140 133 - 145 mmol/L LAB CHEMISTRY METHOD 11/02/2024 2:37 PM [facility] Potassium 3.3(L) 3.5 - 5.5 mmol/L LAB CHEMISTRY METHOD 11/02/2024 2:37 PM [facility] Chloride 105 96 - 110 mmol/L LAB CHEMISTRY METHOD 11/02/2024 2:37 PM [facility] CO2 27 21 - 32 mmol/L LAB CHEMISTRY METHOD 11/02/2024 2:37 PM [facility] Anion Gap 8 3 - 11 LAB CHEMISTRY METHOD 11/02/2024 2:37 PM [facility] Glucose 73 70 - 100 mg/dL LAB CHEMISTRY METHOD 11/02/2024 2:37 PM [facility] BUN 20 5 - 25 mg/dL LAB CHEMISTRY METHOD 11/02/2024 2:37 PM [facility] Creatinine 1.14(H) 0.50 - 1.10 mg/dL LAB CHEMISTRY METHOD 11/02/2024 2:37 PM [facility] eGFR 53(L) >=60 mL/min/1. 73m2 LAB CHEMISTRY METHOD 11/02/2024 2:[address] [facility] Comment:Calculation based on the Chronic Kidney Disease Epidemiology Collaboration (CKD-EPI) equation refit without adjustment for race. BUN/Creatinine Ratio 17.5 LAB CHEMISTRY METHOD 11/02/2024 2:37 PM [facility] Calcium 8.6 8.5 - 10.5 mg/dL LAB CHEMISTRY METHOD 11/02/2024 2:37 PM [facility] AST (SGOT) 40 10 - 42 unit/L LAB CHEMISTRY METHOD 11/02/2024 2:37 PM [facility] ALT (SGPT) 54 10 - 60 unit/L LAB CHEMISTRY METHOD 11/02/2024 2:37 PM [facility] Alkaline Phosphatase 132(H) 42 - 121 unit/L LAB CHEMISTRY METHOD 11/02/2024 2:37 PM [facility] Total Protein 6.9 6.0 - 8.0 g/dL LAB CHEMISTRY METHOD 11/02/2024 2:37 PM [facility] Albumin 2.8(L) 3.2 - 5.0 g/dL LAB CHEMISTRY METHOD 11/02/2024 2:37 PM [facility] Total Bilirubin 0.6 0.0 - 1.4 mg/dL LAB CHEMISTRY METHOD 11/02/2024 2:37 PM [facility] Blood Venous blood specimen / Unknown Venipuncture / Unknown 11/02/2024 6:26 AM EDT 11/02/2024 12:28 PM EDT us Carole Quiroz MD LAB BLOOD ORDERABLES Final Resul t [facility] [address] [place] [address], [place] [phone] * (ABNORMAL) Complete blood count (11/02/2024 6:26 AM EDT) WBC 5.6 4.8 - 10.8 K/mcL LAB HEMETOLOGY METHOD 11/02/2024 1:[address] [facility] RBC 2.70(L) 3.80 - 4.80 M/mcL LAB HEMETOLOGY METHOD [facility] Hemoglobin 8.7(L) 11.5 - 16.0 g/dL LAB HEMETOLOGY METHOD 11/02/2024 1:58 [facility] Hematocrit 27.8(L) 35.0 - 47.0 % LAB HEMETOLOGY METHOD 11/02/2024 1:58 PM [facility] MCV 104.5(H) 79.0 - 98.0 FL LAB HEMETOLOGY METHOD 11/02/2024 1:58 PM [facility] MCH 32.7(H) 27.0 - 32.0 pcg LAB HEMETOLOGY METHOD 11/02/2024 1:58 PM [facility] MCHC 31.3(L) 32.0 - 37.0 g/dL LAB HEMETOLOGY METHOD 11/02/2024 1:58 PM [facility] RDW 18.4(H) 11.0 - 15.0 % LAB HEMETOLOGY METHOD 11/02/2024 1:58 PM [facility] Platelets 235 130 - 400 K/mcL LAB HEMETOLOGY METHOD 11/02/2024 1:58 PM [facility] MPV 9.7 7.0 - 11.0 FL LAB HEMETOLOGY METHOD 11/02[facility]2024 1:58 [facility] NRBC 0.0 <1.0 % LAB HEMETOLOGY METHOD 11/02/2024 1:58 [facility] NRBC Absolute 0.00 <0.10 K/mcL LAB HEMETOLOGY METHOD 11/02/2024 1:[address] [facility] Blood Venous blood specimen / Unknown Venipuncture / Unknown 11/02/2024 6:26 AM EDT 11/02/2024 12:28 PM EDT us Carole Quiroz MD LAB BLOOD ORDERABLES Final Resul t [facility] [address] [place] [address], documented in this encounter Visit Diagnoses Diagnosis Streptococcal infection, unspecified site Personal history of other venous thrombosis and embolism Chronic kidney disease, unspecified Hyperlipidemia, unspecified Hypothyroidism, unspecified Anemia, unspecified Vitamin D deficiency, unspecified Vitamin B12 deficiency anemia, unspecified Bacteremia documented in this encounter Care Teams Team Leader/Research Psychologist Relationship Specialty Start Date End Date Tara Nolasco NP [address] [place] [address] [address] [place] [address] PCP - General 06/21/22 documented as of this encounter
[2024-11-12] MEDS: Piperacillin Sodium/Tazobactam 4.5 GM in 0.9 % Sodium Chloride 100 ML IV (14:31)
--- NOTE | 2024-11-12 15:15 | PC.NURSE ---
Report given to Royer at [facility] ED, daugher and patient aware of transfer
[2024-11-12 15:17] VITALS: BP 104/29; PULSE 64; RESP 15; TEMP 36.9; O2SAT 100
[2024-11-12 15:27] VITALS: BP 104/29; PULSE 64; RESP 15; TEMP 36.9; O2SAT 100
== END 2024-11-12 15:28 | disposition short-term general hospital (02) ==
PROVIDERS: Emergency Provider Emergency Medicine Emergency Medical Services; PCP Nurse Practitioner Family
DX: S06.5XAA Traumatic subdural hemorrhage with loss of consciousness status unknown, initial encounter (principal); S00.83XA Contusion of other part of head, initial encounter; S70.01XA Contusion of right hip, initial encounter; S30.0XXA Contusion of lower back and pelvis, initial encounter; S80.12XA Contusion of left lower leg, initial encounter; S80.11XA Contusion of right lower leg, initial encounter; S20.229A Contusion of unspecified back wall of thorax, initial encounter; W19.XXXA Unspecified fall, initial encounter; R41.0 Disorientation, unspecified; J34.89 Other specified disorders of nose and nasal sinuses; R70.0 Elevated erythrocyte sedimentation rate; R79.82 Elevated C-reactive protein (CRP); R29.6 Repeated falls; Z91.81 History of falling; R29.702 NIHSS score 2; I10 Essential (primary) hypertension; E03.9 Hypothyroidism, unspecified; J44.9 Chronic obstructive pulmonary disease, unspecified; Z87.891 Personal history of nicotine dependence; Z03.818 Encounter for observation for suspected exposure to other biological agents ruled out; Y93.9 Activity, unspecified; Y92.019 Unspecified place in single-family (private) house as the place of occurrence of the external cause; Y99.9 Unspecified external cause status; Z79.82 Long term (current) use of aspirin; Z79.02 Long term (current) use of antithrombotics/antiplatelets; Z79.899 Other long term (current) drug therapy
CPT/HCPCS: 0241U; 36415; 70450; 71045; 72125; 80048; 80076; 81001; 82947; 83605; 84484; 85025; 85610; 85652; 85730; 86140; 87040; 93005; 96365; 99285; J2543

== ENCOUNTER → 2024-11-12 11:40 | Outpatient (BNV) | payer MEDICARE, SELFPAY | PROVIDERS: Emergency Provider Emergency Medicine Emergency Medical Services; Visit Provider Radiology Diagnostic Radiology | DX: M47.812 Spondylosis without myelopathy or radiculopathy, cervical region (principal); Z95.820 Peripheral vascular angioplasty status with implants and grafts; R90.82 White matter disease, unspecified; R41.0 Disorientation, unspecified; W19.XXXA Unspecified fall, initial encounter; J34.89 Other specified disorders of nose and nasal sinuses | CPT/HCPCS: 72125 ==

== ENCOUNTER → 2024-11-12 11:40 | Outpatient (BNV) | payer MEDICARE, SELFPAY | PROVIDERS: Emergency Provider Emergency Medicine Emergency Medical Services; PCP Nurse Practitioner Family; Visit Provider Internal Medicine Cardiovascular Disease | DX: Z13.6 Encounter for screening for cardiovascular disorders (principal) | CPT/HCPCS: 93010 ==

== ENCOUNTER 2024-11-24 13:58 | Outpatient (AMB) | payer MEDICARE, SELFPAY ==
[2024-11-24 14:02] VITALS: BP 90/60; PULSE 84; RESP 30; TEMP 36.7; O2SAT 89
--- NOTE | 2024-11-24 14:02 | AM.OFFWIN_ITS ---
Intake Vital Signs 11/24/24 14:02 BMI Reason not done Patient refused/unable BP 90/60 Blood Pressure Location Lt brachial Position Sitting Respiration 30 H Pulse 84 Pulse Source Pulse Oximeter Temp 98.1 F Temp Source Oral Pulse Oximetry (%) 89 L Intake Visit Reasons: EP Congestion, difficulty breathing Intake Note: Pt is here today c/o chest congestion and SOB x4days Patient Tobacco Use Status: Former Tobacco user Accompanied by: Daughter Leila Frye codeine Allergy (Unknown, Verified 11/12/24 11:47) Unknown HPI HPI Comments History of Present Illness Details History of Present Illness The patient is a 69-year-old female presenting with her daughter and her friend for SOB for the past few days. She has been getting progressively worse. She has been having respiratory distress and fever at home. She has a pre-existing condition of Chronic Obstructive Pulmonary Disease (COPD). Recently, her respiratory symptoms have worsened, leading to a drop in oxygen saturation from 92% to 88%. Her respiratory efforts appeared increasingly strained, causing concern for potential hyperventilation and apnea. She had a fever of 100.8?F this morning, which was alleviated to 98.1?F after receiving Tylenol. There is a persistent cough producing thick, greenish-brown sputum, raising concerns for an infectious process such as pneumonia. She was recently discharged from the hospital on November 19. She denies leg edema or calf pain, sore throat, ear pain, abd pain, n/v/d. Physical Exam General: Cooperative, in acute distress Orientation: Patient oriented x3 Neck: Normal visual inspection and Yes full ROM. No carotid bruits noted. Respiratory: Diminished breath sounds on the left. Increased respiratory effort noted. No w/r/r noted. Cardiovascular: Regular rate and rhythm. Normal S1 and S2 GI: Normal to inspection. Soft to palpation and nontender. No guarding noted. Skin: No rashes or lesions noted Neuro: Patient oriented x3 Extremities: Normal to inspection. No edema noted on the LE bilaterally. Patient was informed and verbally consented to the use of an ambient scribe for clinic note documentation during this visit. 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 Arthritis of left hip Disc degeneration, lumbar Lumbar facet arthropathy Stenosis, spinal, lumbar Sacroiliac joint pain Lumbar radicular pain Rhinitis Hypothyroidism Anxiety Tachycardia Cough COPD (chronic obstructive pulmonary disease) Surgical History (Updated 10/21/24 @ 18:37 [facility] S/P vascular bypass (~08/2024) History of carotid endarterectomy (~07/2024) No pertinent past surgical history Social History Household Members: Children Household Members Other:: daughter Housing: House Are you a primary customer care associate to a significant other at home: No Do you presently have visiting nurse or other home services: No 75 years or older and lives alone: No Alcohol intake: current Alcohol intake frequency: holidays/special occasions only Alcohol type: beer Patient Tobacco Use Status: Former Tobacco user Tobacco use type: Cigarette Cigarette Packs Per Day: 0 Cigarettes Per Day: 2 e-Cigarette/Vaping Use: Never Used service: No Current occupational status: retired Current occupation: right handed, retired Sexual orientation: Unable to collect Gender identity: Unable to collect Cognitive needs: No Hearing needs: No Vision needs: Yes (wears glasses to drive.) Review of Systems Const All systems reviewed & are unremarkable except as noted in HPI and below Physical Exam Vital Signs: Last Vital Signs Temp 98.1 F 11/24/24 14:02 Pulse 84 11/24/24 14:02 Resp 30 H 11/24/24 14:02 BP 90/60 11/24/24 14:02 Pulse Ox 89 L 11/24/24 14:02 Assessment & Plan Assessment & Plan (1) SOB (shortness of breath): Code(s): R06.02 - Shortness of breath Plan Most likely pneumonia vs COPD exacerbation vs PE Plan The patient was transported to the emergency room by ambulance due to acute respiratory distress and fever, necessitated by her history of COPD and symptoms suggesting pneumonia. Her labored breathing and declining oxygen saturation required immediate medical evaluation and potential interventions, such as imaging of the chest. A chest X-ray was considered essential to confirm an infectious process. The risk of complications associated with fever and her symptomatology, along with her use of blood thinners, justified the urgent referral for comprehensive management in the ER. Collaboration with EMS ensured expedited evaluation and management upon arrival. Called [facility] ER for an expect at 1430. Patient was placed on oxygen in the office and currently her O2 sat was 94% which increased from 87%. Will print her [facility] d/c papers. Coding Level of Care Code Est Pt Level 3 (09165) Diagnoses SOB (shortness of breath) R06.02
--- OUTSIDE RECORDS SUMMARY | 2024-11-24 15:44 | XMS_ITS | Encounter Summary ---
Author Organization [facility] Address [address] [place] [address] Care Team Providers Care Sports Lawyer Name Role Phone Nolasco, Sonia Rosario ERP ANALYST Primary Care Provider [phone] Encounter Details Date Type Department Care Team (Late st Contact Info) Description 11/02/2024 Lab Requisition [facility] - Main Lab [address] [place] [id number] Carole Quiroz MD [address] [place] [address] Streptococcal infection, unspecified site; Personal history of [...] B12 and folate (11/02/2024 6:26 AM EDT) [facility] Vitamin B-12 1,079(H) 250 - 900 pcg/mL LAB CHEMISTRY METHOD 11/02/2024 2:59 PM EDT [facility] Folate 7.4 2.8 - 17.0 ng/ml LAB CHEMISTRY METHOD 11/02/2024 2:59 PM EDT [facility] Blood Venous blood specimen / Unknown Venipuncture / Unknown 11/02/2024 6:26 AM EDT 11/02/2024 12:28 PM EDT us Carole Quiroz MD LAB BLOOD ORDERABLES Final Resul t Performing Organization Address City/[facility]/ZIP Co de Phone Number [facility] [address] [place] [address], [place] [phone] * Vitamin D 25 hydroxy (11/02/2024 6:26 AM EDT) Vit D, 25-Hydroxy 32.5 30.0 - 80.0 ng/mL LAB CHEMISTRY METHOD 11/02/2024 3:10 PM EDT [facility] Blood Venous blood specimen / Unknown Venipuncture / Unknown 11/02/2024 6:26 AM EDT 11/02/2024 12:28 PM EDT us Carole Quiroz MD LAB BLOOD ORDERABLES Final Resul t Performing Organization Address [facility]/ZIP Co de Phone Number [facility] [address] [place] [address], [place] [phone] * Iron (11/02/2024 6:26 AM EDT) Iron 45 40 - 150 mcg/dL LAB CHEMISTRY METHOD 11/02/2024 2:37 PM EDT [facility] Blood Venous blood specimen / Unknown Venipuncture / Unknown 11/02/2024 6:26 AM EDT 11/02/2024 12:28 PM EDT us Carole Quiroz MD LAB BLOOD ORDERABLES Final Resul t Performing Organization Address [facility]/ZIP Co de Phone Number [facility] [address] [place] [address], * Thyroid stimulating hormone with reflex to free t4 and free t3 (11/02/2024 6:26 AM EDT) Pathologist [facility] TSH 2.98 0.40 - 4.00 mcIU/mL LAB CHEMISTRY METHOD 11/02/2024 3:10 PM EDT [facility] Blood Venous blood specimen / Unknown Venipuncture / Unknown 11/02/2024 6:26 AM EDT 11/02/2024 12:28 PM EDT Carole Quiroz MD LAB BLOOD ORDERABLES Final Resul t Performing Organization Address [facility] Co de Phone Number [facility] [address] [place] [address], [place] [phone] * (ABNORMAL) Lipid panel with reflex to direct LDL (11/02/2024 6:26 AM EDT) Pathologist [facility] Cholesterol 76 0 - 200 mg/dL LAB CHEMISTRY METHOD 11/02/2024 2:37 PM EDT [facility] Triglycerides 88 0 - 150 mg/dL LAB CHEMISTRY METHOD 11/02/2024 2:37 PM EDT [facility] HDL 34(L) >=40 mg/dL LAB CHEMISTRY METHOD 11/02/2024 2:37 PM EDT [facility] LDL Calculated 24 0 - 100 mg/dL LAB CHEMISTRY METHOD 11/02/2024 2:37 PM EDT [facility] VLDL Cholesterol Facundo 17.6 mg/dL LAB CHEMISTRY METHOD 11/02/2024 2:37 PM EDT [facility] Non HDL Chol. (LDL+VLDL) 42 <145 mg/dL LAB CHEMISTRY METHOD 11/02/2024 2:37 PM EDT [facility] Chol/HDL Ratio 2.2 0.0 - 4.4 LAB CHEMISTRY METHOD 11/02/2024 2:37 PM [facility] Blood Venous blood specimen / Unknown Venipuncture / Unknown 11/02/2024 6:26 AM EDT 11/02/2024 12:28 PM EDT us Carole Quiroz MD LAB BLOOD ORDERABLES Final Resul t [facility] [address] [place] [address], [place] [phone] * (ABNORMAL) Comprehensive metabolic panel (11/02/2024 6:26 AM EDT) Sodium 140 133 - 145 mmol/L LAB CHEMISTRY METHOD 11/02/2024 2:37 PM [facility] Potassium 3.3(L) 3.5 - 5.5 mmol/L LAB CHEMISTRY METHOD 11/02/2024 2:37 PM [facility] Chloride 105 96 - 110 mmol/L LAB CHEMISTRY METHOD 11/02/2024 2:37 PM [facility] CO2 27 21 - 32 mmol/L LAB CHEMISTRY METHOD 11/02/2024 2:37 PM [facility] Anion Gap 8 3 - 11 LAB CHEMISTRY METHOD 11/02/2024 2:37 PM [facility] Glucose 73 70 - 100 mg/dL LAB CHEMISTRY METHOD 11/02/2024 2:37 PM [facility] BUN 20 5 - 25 mg/dL LAB CHEMISTRY METHOD 11/02/2024 2:37 PM [facility] Creatinine 1.14(H) 0.50 - 1.10 mg/dL LAB CHEMISTRY METHOD 11/02/2024 2:37 PM [facility] eGFR 53(L) >=60 mL/min/1. 73m2 LAB CHEMISTRY METHOD 11/02/2024 2:37 PM EDT [facility] Comment:Calculation based on the Chronic Kidney Disease Epidemiology Collaboration (CKD-EPI) equation refit without adjustment for race. BUN/Creatinine Ratio 17.5 LAB CHEMISTRY METHOD 11/02/2024 2:37 PM [facility] Calcium 8.6 8.5 - 10.5 mg/dL LAB CHEMISTRY METHOD 11/02/2024 2:37 PM [facility] AST (SGOT) 40 10 - 42 unit/L LAB CHEMISTRY METHOD 11/02/2024 2:37 PM [facility] ALT (SGPT) 54 10 - 60 unit/L LAB CHEMISTRY METHOD 11/02/2024 2:37 PM [facility] Alkaline Phosphatase 132(H) 42 - 121 unit/L LAB CHEMISTRY METHOD 11/02/2024 2:37 PM [facility] Total Protein 6.9 6.0 - 8.0 g/dL LAB CHEMISTRY METHOD 11/02/2024 2:37 PM [facility] Albumin 2.8(L) 3.2 - 5.0 g/dL LAB CHEMISTRY METHOD 11/02/2024 2:37 PM [facility] Total Bilirubin 0.6 0.0 - 1.4 mg/dL LAB CHEMISTRY METHOD 11/02/2024 2:37 PM [facility] Blood Venous blood specimen / Unknown Venipuncture / Unknown 11/02/2024 6:26 AM EDT 11/02/2024 12:28 PM EDT us Carole Quiroz MD LAB BLOOD ORDERABLES Final Resul t [facility] [address] [place] [address], [place] [phone] * (ABNORMAL) Complete blood count (11/02/2024 6:26 AM EDT) WBC 5.6 4.8 - 10.8 K/mcL LAB HEMETOLOGY METHOD 11/02/2024 1:58 PM EDT [facility] RBC 2.70(L) 3.80 - 4.80 M/mcL LAB HEMETOLOGY [facility] Hemoglobin 8.7(L) 11.5 - 16.0 g/dL LAB HEMETOLOGY METHOD [facility]2024 [facility] Hematocrit 27.8(L) 35.0 - 47.0 % LAB HEMETOLOGY METHOD 11/02/2024 1:58 PM [facility] MCV 104.5(H) 79.0 - 98.0 FL LAB HEMETOLOGY METHOD 11/02/2024 1:58 PM [facility] MCH 32.7(H) 27.0 - 32.0 pcg LAB HEMETOLOGY METHOD 11/02/2024 1:58 PM [facility] MCHC 31.3(L) 32.0 - 37.0 g/dL LAB HEMETOLOGY METHOD 11/02/2024 1:58 PM [facility] RDW 18.4(H) 11.0 - 15.0 % LAB HEMETOLOGY METHOD 11/02/2024 1:58 PM [facility] Platelets 235 130 - 400 K/mcL LAB HEMETOLOGY METHOD 11/02/2024 1:58 PM [facility] MPV 9.7 7.0 - 11.0 FL LAB HEMETOLOGY METHOD 11/02[facility]2024 [facility] NRBC 0.0 <1.0 % LAB HEMETOLOGY METHOD 11/02[facility]2024 1:[facility] NRBC Absolute 0.00 <0.10 K/mcL LAB HEMETOLOGY METHOD 11/02/2024 1:58 PM EDT [facility] Blood Venous blood specimen / Unknown Venipuncture / Unknown 11/02/2024 6:26 AM EDT 11/02/2024 12:28 PM EDT us Carole Quiroz MD LAB BLOOD ORDERABLES Final Resul t [facility] [address] [place] [address], documented in this encounter Visit Diagnoses Diagnosis Streptococcal infection, unspecified site Personal history of other venous thrombosis and embolism Chronic kidney disease, unspecified Hyperlipidemia, unspecified Hypothyroidism, unspecified Anemia, unspecified Vitamin D deficiency, unspecified Vitamin B12 deficiency anemia, unspecified Bacteremia documented in this encounter Care Teams Sports Lawyer Relationship Specialty Start Date End Date Tara Nolasco NP [address] [place] [address] [address] [place] [address] PCP - General 06/21/22 documented as of this encounter
== END 2024-11-24 15:08 | disposition home or self-care (01) ==
PROVIDERS: PCP Nurse Practitioner Family; Visit Provider Physician Assistant Medical
DX: R06.02 Shortness of breath (principal)

== ENCOUNTER → 2024-11-24 13:58 | Outpatient (BNVA) | payer MEDICARE, SELFPAY | PROVIDERS: PCP Nurse Practitioner Family; Visit Provider Physician Assistant Medical ==

== ENCOUNTER 2024-11-24 15:24 | Inpatient (IN) | payer MEDICARE, SELFPAY ==
[2024-11-24] VITALS (14 sets, daily range): BP systolic 114–164; BP diastolic 47–73; PULSE 71–97; RESP 24–35; TEMP 36.5–38.8; O2SAT 89–97; BMI 24.8
--- NOTE | ~2024-11-24 | CT_ITS ---
CLINICAL HISTORY: sob CT angiography of the chest with IV contrast. 3D/MIP post processing reconstructions were performed. COMPARISON: None FINDINGS: There are no intraluminal filling defects to suggest pulmonary embolism. No evidence of right heart strain. Visualized thyroid is unremarkable. No supraclavicular or axillary lymphadenopathy. Ascending aorta and main pulmonary artery are normal in caliber. Coronary artery calcifications present within the circumflex. Mitral annular calcifications. No pericardial effusion. Normal esophagus. Multiple normal-sized mediastinal lymph nodes. Consolidation and ground-glass present within the left lower lobe. Additional patchy areas of ground-glass and consolidation present within the upper lobes bilaterally and right lower lobe. Trachea and central airways are clear. No significant bronchial wall thickening. No bronchiectasis. Lobular hepatic contour. Hepatic steatosis. Mild spondylosis. No acute fracture or suspicious bone lesion. IMPRESSION: 1. Multifocal pneumonia most pronounced within the left lower lobe. 2. No evidence of pulmonary embolism. 3. Coronary artery atherosclerosis. This document has been electronically signed by: Elia Whittington MD on 11/24/2024 18:49:31
--- NOTE | ~2024-11-24 | CT_ITS ---
CLINICAL HISTORY: right flank bruise CT abdomen and pelvis with IV contrast. COMPARISON: CT abdomen and pelvis dated 07/12/24 at 07:38 EST FINDINGS: Partially visualized left lower lobe consolidation. Mitral annular calcifications. Lobular hepatic contour. Cholelithiasis present within the gallbladder body and neck. Gallbladder is distended. No pericholecystic inflammatory changes. Choledocholithiasis identified. Normal spleen. Small splenule present. Normal pancreas. Normal adrenal glands. Atrophic left kidney. Mild right hydronephrosis and right hydroureter. Nonobstructing 1 mm right renal calculus. No right ureteral calculus. Appendix is not seen. Mild colonic stool burden. No bowel obstruction. No mesenteric or retroperitoneal lymphadenopathy. Heavy calcified plaque present along the abdominal aorta causing areas of high-grade stenosis or occlusion. Patency of the aorta and stents is poorly evaluated given artifact in these locations. SMA, bilateral renal and common iliac artery stents present. Fem-fem bypass graft present. Partially visualized likely right axillary-fem bypass graft. Bypass graft and graft along the right chest/abdominal wall appear patent. Urinary bladder is unremarkable given degree of distention. No adnexal mass. Irregularity and erosions along the endplates at L5-S1, new since prior imaging. There is soft tissue fullness along the anterior aspect of the L5-S1 level. Moderate to advanced lumbar spondylosis. IMPRESSION: 1. Erosions along the endplates at L5-S1 with prevertebral soft tissue fullness raise suspicion for osteomyelitis discitis. This is new since prior imaging. Recommend correlation clinically. MR of the lumbar spine with and without contrast would be helpful for further characterization 2. Consolidation within the left lower lobe suggestive of aspiration pneumonitis or pneumonia. 3. Cholelithiasis within the distended gallbladder. No additional evidence for cholecystitis. 4. Bypass graft along the right chest/abdominal wall and fem-fem bypass graft appear patent. This document has been electronically signed by: Elia Whittington MD on 11/24/2024 18:49:34
--- NOTE | ~2024-11-24 | XR_ITS ---
CLINICAL HISTORY: hypoxia 1 view chest x-ray Comparison: None Findings: Bilateral pulmonary opacities are nonspecific and may reflect pneumonitis or pulmonary edema. Right lung opacities accentuated by positioning of the right scapula including inferior angle of the scapula. Other lung etiologies not excluded at this time given relative worsening compared to 4 days prior. Question small pleural effusions with blunting of the costophrenic angles. No definite pneumothorax in this portable image. Imaged mediastinum appears unchanged. Degenerative changes include imaged shoulders and imaged AC joints. Right humerus tendon anchors present. IMPRESSION: Worsening [id number] pulmonary opacities of the both lungs compared to 4 days prior. Differential considerations include pneumonitis and pulmonary edema. Recommend attention on follow-up to ensure resolution. This document has been electronically signed by: Ger Gaffney MD on 12/05/2024 23:56:25
--- NOTE | ~2024-11-24 | XR_ITS ---
EXAMINATION: XR CHEST CLINICAL INFORMATION: intubated COMPARISON: December 06, 2024. TECHNIQUE: Frontal view of the chest was obtained. FINDINGS: The endotracheal tube ends 1 cm above janusz. Bilateral multifocal patchy and confluent opacities both lungs. No gross pleural effusion. No gross pneumothorax. Cardiomediastinal silhouette size is normal. Calcified plaque aortic arch. There is an NG tube ending in the left upper hemiabdomen below the left hemidiaphragm. Multilevel spondylosis. Metallic anchors in the right humeral head greater tuberosity no fully included. XR/XR chest 1V IMPRESSION: Endotracheal tube ends 1 cm above janusz. Multifocal pneumonia versus pulmonary edema versus ARDS versus pneumonitis among other differential diagnosis. Electronically signed by: Xavier Horowitz MD 12/07/2024 10:22 AM EDT
--- NOTE | ~2024-11-24 | CT_ITS ---
EXAMINATION: CT HEAD WITHOUT CONTRAST CLINICAL INFORMATION: Altered mental status COMPARISON: November 24, 2024 TECHNIQUE: Contiguous axial imaging was performed from the skull base to vertex without intravenous administration of contrast. This CT examination was performed using dose optimization techniques as appropriate, variously including the following: *Automated exposure control *Adjustment of mA and/or kV according to patient size (this includes techniques or standardized protocols for targeted exams where dose is matched to indication/reason for exam; i.e. extremities or head) *Use of iterative reconstruction technique DLP: 801 mGY*cm FINDINGS: There is no acute ischemic change. Periventricular white matter low attenuation is similar to the prior. There is mild generalized atrophy. There is no intracranial hemorrhage. There is no mass-effect or midline shift. Basal cisterns and ventricles are within normal limits for age/cerebral volume. Orbits are symmetrical and unremarkable. Mucosal thickening is noted throughout all the paranasal sinuses, increased since the prior. There are no bony abnormalities. CT/CT head/brain wo IV con IMPRESSION: No acute intracranial abnormality. Pansinus mucosal thickening is probably secondary to intubation. Electronically signed by: Trenton Roth MD 12/10/2024 06:30 PM EDT
--- NOTE | ~2024-11-24 | XR_ITS ---
CLINICAL HISTORY: sob 1 view chest x-ray Comparison: CT/SR - CT ANGIO CHEST PE PROTOCOL - 11/24/24 17:38 EDT Findings: Patchy multifocal airspace density, most pronounced within the left lung. No effusion. No pneumothorax. No acute fracture. IMPRESSION: Multifocal pneumonia, similar to recent CT. This document has been electronically signed by: John Jose MD on 11/29/2024 07:53:52
--- NOTE | ~2024-11-24 | XR_ITS ---
CLINICAL HISTORY: pneumonia 1 view chest x-ray. Comparison: CR/SR - XR CHEST 1V - 12/07/24 09:20 EDT CR - XR CHEST 1V - 12/06/24 11:08 EDT Findings: Stable low lung volumes. Patient's chin obscures the lung apices. Worsening bilateral airspace disease. Heart size normal. No midline shift or tracheal deviation. No acute fracture. Vascular stent right upper josee thorax. Jackson sutures post rotator cuff repair on the right. Impression: 1. Poor inspiratory effort. Patient's chin obscures the lung apices. Worsening bilateral airspace disease. This document has been electronically signed by: Pernell Paz MD on 12/13/2024 11:39:42
--- NOTE | ~2024-11-24 | NM_ITS ---
EXAMINATION: Nuclear medicine hepatobiliary scan without pharmaceutical. CLINICAL INDICATION: Distended gallbladder with gallstones on CT. COMPARISON: CT abdomen and pelvis exam 11/24/2024. TECHNIQUE: Following intravenous administration of 5 mCi of 99m technetium mebrofenin, imaging over the right upper quadrant was obtained up to 60 minutes. FINDINGS: There is normal hepatic uptake without focal defect right common bile duct is visualized by 18 minutes. Gallbladder is visualized by 30 minutes. Small bowel is visualized by 49 minutes. NM/NM hepatobiliary wo pharm IMPRESSION: Patent cystic duct. Patent CBD. Normal hepatic uptake. Electronically signed by: Raghu Lopez MD 11/25/2024 04:07 PM EDT
--- NOTE | ~2024-11-24 | US_ITS ---
CLINICAL HISTORY: ? DVTs, hypoxia Venous duplex ultrasound bilateral lower extremity Comparison: None Findings: The visualized deep veins are fully compressible with normal Doppler color flow and spectral tracings. Imaged superficial soft tissues are unremarkable. IMPRESSION: 1. Negative for bilateral lower extremity deep vein thrombosis. This document has been electronically signed by: Ger Gaffney MD on 12/05/2024 21:02:06
--- NOTE | ~2024-11-24 | US_ITS ---
EXAMINATION: US ABDOMEN LIMITED HISTORY: liver with dopplers - elevated LFTs TECHNIQUE: Real-time grayscale ultrasound imaging of the right upper quadrant was performed and images were reviewed. COMPARISON: Correlation is made with a CT of the abdomen with contrast dated 11/24/2024. FINDINGS: Liver: The right lobe of the liver measures 13.9 cm in size. The left lobe of the liver measures 9.3 cm in size. The liver demonstrates coarsened echotexture. No focal mass or intrahepatic biliary ductal dilatation is identified. There is normal hepatopedal flow in the portal vein, which demonstrates a normal spectral Doppler waveform. Gallbladder and biliary tree: There are multiple shadowing calculi in the gallbladder. There is no wall thickening or pericholecystic fluid. There is no sonographic Olivares sign. The common bile duct measures 7 mm diameter. Right Kidney: The right kidney measures 12.4 cm in length. The right kidney is unremarkable, without evidence of masses, hydronephrosis, or calculi. Pancreas: The pancreatic head, neck, and body are unremarkable. The pancreatic tail is obscured by bowel gas. Abdominal aorta and inferior vena cava: The visualized portions of the abdominal aorta and inferior vena cava are normal in caliber. There is no free fluid in the right upper quadrant. US/US abdomen limited IMPRESSION: 1. Coarsened hepatic echotexture. The portal vein is patent. 2. Cholelithiasis. Electronically signed by: Jayy Manley MD 12/04/2024 07:52 AM EDT
--- NOTE | ~2024-11-24 | MR_ITS ---
CLINICAL HISTORY: <OBR.31.1><OBR.31.1.1>concern for osteomyelitis or discitis on CT Respiratory joyce fact present due to pt persistent cough. Pt claustrophobic </OBR.31.1.1><OBR.31.1.2> would not tolera te rpt images. Best possible images obtained.</OBR.31.1.2></OBR.31.1> MR lumbar spine with and without gadolinium Comparison: None Findings: No acute fracture or acute malalignment. Abnormal T1 and T2 signal involving the inferior endplate of L5 and superior endplate of S1 with diffuse abnormal enhancement. There is also abnormal disc signal at L5-S1. Diffuse disc space loss throughout the lumbar spine. The conus terminates normally at L1. Cauda equina are unremarkable. No epidural or paraspinal abscess. Individual levels: L1-L2: No central canal stenosis or neural foraminal narrowing. L2-L3: Left eccentric disc protrusion with facet hypertrophy. Moderate bilateral neural foraminal narrowing, vins-qahpjnq-ieuz-right. Minimal central canal narrowing. L3-L4: Left eccentric disc protrusion with facet hypertrophy. Moderate left neural foraminal narrowing. Moderate central canal stenosis. L4-L5: Left eccentric disc protrusion with facet hypertrophy. Myxlx-uzgtufg-gdjf-left neural foraminal narrowing. Minimal central canal narrowing. L5-S1: There is a posterior disc protrusion with facet hypertrophy. There is moderately severe bilateral neural foraminal narrowing and moderate central canal stenosis. Impression: Findings are consistent with osteomyelitis/discitis at L5 and S1 as detailed. Diffuse degenerative changes are present. This document has been electronically signed by: John Jose MD on 11/27/2024 19:25:14
--- NOTE | ~2024-11-24 | CT_ITS ---
CLINICAL HISTORY: fall on plavix CT cervical spine without contrast. COMPARISON: CT cervical spine dated 11/12/24 at 11:43 EDT FINDINGS: Straightening of the normal cervical lordosis, likely positional. Grade 1 anterolisthesis of C4 on C5, degenerative and stable. Vertebral body heights are maintained. Skull base and intracranial structures appear normal. Patchy areas of ground-glass and consolidation present within the partially visualized upper lungs bilaterally. C2-C3: Facet joint arthrosis. Mild left neural foraminal narrowing. C3-C4: Facet joint arthrosis. No significant neural foraminal narrowing. C4-C5: Uncovertebral joint hypertrophy. Facet joint arthrosis. Severe left neural foraminal narrowing. C5-C6: Anterior marginal osteophytes. Uncovertebral joint hypertrophy. No significant neural foraminal narrowing. C6-C7: No significant neuroforaminal narrowing or spinal canal stenosis. IMPRESSION: 1. No evidence of acute injury to the cervical spine. 2. Grade 1 anterolisthesis of C4 on C5, degenerative and stable. 3. Moderate multilevel cervical spondylosis, stable This document has been electronically signed by: Elia Whittington MD on 11/24/2024 18:54:46
--- NOTE | ~2024-11-24 | XR_ITS ---
CLINICAL HISTORY: hypoxia 1 view chest x-ray Comparison: CR - XR CHEST 1V - 11/29/24 07:27 EDT Findings: Moderate diffuse interstitial pulmonary opacity, as before. Normal size heart. No acute fracture. IMPRESSION: Stable moderate bilateral pneumonia. This document has been electronically signed by: Marleen Silva MD on 12/01/2024 17:40:44
--- NOTE | ~2024-11-24 | CT_ITS ---
CLINICAL HISTORY: fall on plavix CT head without contrast. COMPARISON: CT head dated 11/12/24 at 11:43 EDT FINDINGS: The visualized paranasal sinuses are clear. The mastoid air cells are clear. No calvarial fracture. Atherosclerotic intracranial vasculature. No evidence for mass or mass effect. No intracranial hemorrhage or abnormal extra-axial fluid collection. No CT evidence of acute infarct. The ventricles are proportional with the degree of mild global cerebral volume loss without evidence of hydrocephalus. Basilar cisterns are patent. There are periventricular areas of low attenuation compatible with mild white matter small vessel disease. Posterior fossa appears unremarkable. IMPRESSION: 1. No acute intracranial findings. This document has been electronically signed by: Elia Whittington MD on 11/24/2024 19:03:36
--- NOTE | ~2024-11-24 | XR_ITS ---
EXAMINATION: XR CHEST CLINICAL INFORMATION: sob COMPARISON: Chest Topogram from January 17, 2023 TECHNIQUE: AP view of the chest was obtained. FINDINGS: Heart size is within normal limits. Small vague groundglass density is seen in the mid to upper left lung, just lateral to the aortic arch. There is a vascular stent projecting right of midline in the upper chest. There is mild elevation of the left hemidiaphragm. There is mild vascular crowding. There is a vascular stent projecting right of midline in the upper chest. XR/XR chest 1V IMPRESSION: Vague groundglass density in the mid to upper left lung zone representing atelectasis or pneumonia. Electronically signed by: Trenton Roth MD 11/24/2024 04:32 PM EDT
--- NOTE | ~2024-11-24 | XR_ITS ---
CLINICAL HISTORY: Status post ET tube placement Chest Radiographs, AP Comparison: CR - XR CHEST 1V - 12/05/24 23:18 EDT CR - XR CHEST 1V - 12/01/24 17:18 EDT CR - XR CHEST 1V - 11/29/24 07:27 EDT Findings: The endotracheal tube terminates 1.5 cm above the janusz. The enteric tube terminates in the left upper quadrant. The side port is in the distal esophagus No cardiomegaly. Normal mediastinal contours. No pneumothorax. Severe bilateral opacity, increased. No pleural effusion. Normal upper abdomen. No acute fracture. Impression: Adequately positioned endotracheal tube. Consider pull back by 0.5 cm for ideal positioning. The side port of the enteric tube terminates in the distal esophagus. Advance by 5 cm. Worsening multifocal pneumonia. This document has been electronically signed by: Dalila Pacheco MD on 12/06/2024 13:07:22
--- NOTE | 2024-11-24 15:40 | ED_ITS ---
HPI - SOB/Dyspnea General Chief Complaint: Dyspnea Stated Complaint: sob hx 4 days 88% RA hx copd History of Present Illness HPI Narrative: Patient is a 69-year-old female with a history of COPD via peripheral vascular disease status post bypass to the subclavian history of carotid artery stenosis status post surgery on July of 2024 currently on Plavix. Been noticing increasing coughing upper respiratory symptoms fever generalized malaise. Been also falling. Patient have fallen multiple times within the last week or 2. Feels very weak and tired. Was recently discharged from [facility] on November 19. Patient had a previous subdural hematoma. After getting home patient felt increasingly weak. Having the fever having a coughing. Went to urgent Care was noted to have a low oxygen saturation was then sent to the ED for further evaluation. Baseline patient is not on oxygen. Related Data Home Medications ?Medication ?Instructions ?Recorded ?Confirmed gabapentin 600 mg tablet 1,200 mg PO BEDTIME 07/12/24 11/10/24 ipratropium 0.5 mg-albuterol 3 mg 3 ml inhalation Q6H PRN wheezing 07/12/24 11/10/24 (2.5 mg base)/3 mL nebulization soln clopidogrel 75 mg tablet mg PO DAILY 08/21/24 11/10/24 Previous Rx's ?Medication ?Instructions ?Recorded aspirin 81 mg tablet,delayed 81 mg PO DAILY #30 tabs 08/28/23 release (Adult Low Dose Aspirin) nebulizer accessories #1 ea 11/05/23 nebulizers #1 ea 11/05/23 atenolol 50 mg tablet 50 mg PO BID 90 days #180 tabs 05/15/24 rosuvastatin 10 mg tablet 10 mg PO DAILY #90 tabs 06/23/24 budesonide 0.25 mg/2 mL suspension 0.25 mg (2 mL) inhalation BID #60 07/02/24 for nebulization mL bupropion HCl 200 mg tablet,12 hr 200 mg PO QAM #90 tabs 07/09/24 sustained-release omeprazole 20 mg capsule,delayed 20 mg PO BID #180 caps 08/10/24 release albuterol sulfate 90 mcg/actuation 2 puff PO Q4-6H PRN for wheezing 08/13/24 aerosol inhaler #8.5 grams lorazepam 0.5 mg tablet 0.5 mg PO BEDTIME PRN anxiety #30 08/27/24 tabs furosemide 20 mg tablet 20 mg PO DAILY #90 tabs 09/16/24 isosorbide mononitrate 30 mg 30 mg PO DAILY #90 tabs 09/16/24 tablet,extended release 24 hr baclofen 10 mg tablet 10 mg PO BEDTIME PRN muscle spasm 10/21/24 #30 tabs hydralazine 50 mg tablet 50 mg PO TID #90 tabs 10/21/24 levothyroxine 75 mcg tablet 75 mcg PO DAILY #90 tabs 10/21/24 sertraline 100 mg tablet 100 mg PO DAILY #90 tabs 11/06/24 tramadol 100 mg tablet 100 mg PO Q6H PRN pain 14 days #56 11/10/24 tabs Allergies Allergy/AdvReac Type Severity Reaction Status Date / Time codeine Allergy Unknown Unknown Verified 11/24/24 15:28 Review of Systems 2 Review of Systems: Positive coughing positive frequent falls positive head injury positive history of subdural hematoma Yes all other systems are reviewed and are negative [facility] Past Medical History Attestation statement: The following information was validated with the patient. 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 Arthritis of left hip Disc degeneration, lumbar Lumbar facet arthropathy Stenosis, spinal, lumbar Sacroiliac joint pain Lumbar radicular pain Rhinitis Hypothyroidism Anxiety Tachycardia Cough COPD (chronic obstructive pulmonary disease) Surgical History S/P vascular bypass (~08/2024) History of carotid endarterectomy (~07/2024) No pertinent past surgical history Social History Social History Household Members: Children Household Members Other:: daughter Housing: House Are you a primary medicare interviewer to a significant other at home: No Do you presently have visiting nurse or other home services: No Alcohol intake: current Alcohol intake frequency: a few times a week Alcohol type: beer Patient Tobacco Use Status: Former Tobacco user Tobacco use type: Cigarette Cigarette Packs Per Day: 0 Cigarettes Per Day: 2 Smoked in Last 30 Days: No e-Cigarette/Vaping Use: Never Used Use of substances other than those prescribed or required for medical reasons: No Advance Directives: No Advance Directives Information Provided: No service: No Current occupational status: retired Current occupation: right handed, retired Sexual orientation: Unable to collect Gender identity: Unable to collect Cognitive needs: No Hearing needs: No Vision needs: Yes (wears glasses to drive.) Physical Exam 2 Vital Signs: Vital Signs: Last Vital Signs Temp 100.0 F 11/24/24 17:38 Pulse 71 11/24/24 18:34 Resp 24 H 11/24/24 18:34 BP 139/57 L 11/24/24 18:34 Pulse Ox 95 11/24/24 18:34 O2 Del Method Oxymask 11/24/24 18:34 O2 Flow Rate 4 11/24/24 18:34 FiO2 33 11/24/24 17:01 BMI result Body Mass Index 24.8 Appearance: Alert. Oriented X3. No acute distress. Eyes: Pupils equal, round and reactive to light. ENT: Pharynx normal. Neck: Normal inspection. Neck supple. No lymph nodes noted. No crepitus CVS: Normal heart rate and rhythm. Pulses normal. Normal S1 and S2 Respiratory: diminished breath sounds bilaterally. Positive expiratory wheezing. Increased work of breathing Abdomen: Soft and nontender. No rigidity. No distention. good BS x4 . Significant bruising to the right flank area. Skin: Skin warm and dry. Normal skin color. Normal skin turgor. Extremities: No lower extremity edema. Neurovascular intact to all extremities. No Lacerations. No Rash Neuro: Oriented X 3. No motor deficit. No sensory deficit. Moving all extermities. No slurred speech Medications Administered Discontinued Medications Generic Name Dose Route Start Last Admin Trade Name Freq PRN Reason Stop Dose Admin Acetaminophen 975 mg 11/24/24 15:39 11/24/24 16:01 Acetaminophen 325 Mg Tablet PO 11/24/24 15:40 975 mg ONCE ONE Administration Albuterol Sulfate 5 mg/ 0 mg 11/24/24 15:52 11/24/24 15:54 Albuterol/Ipratropium 3 ml INHALE 11/24/24 15:53 1 each ONCE ONE Administration Sodium Chloride 2,094 mls @ 2,094 mls/hr 11/24/24 15:36 11/24/24 17:38 Ns 30 ml/kg infuse over 1 hr (2094 ml) 11/24/24 16:35 Infused IV Infusion .Q1H STA Cefepime HCl 2 gm in 50 mls @ 100 mls/hr 11/24/24 15:36 11/24/24 16:31 Maxipime IV 11/24/24 16:05 Infused ONCE ONE Infusion Iohexol 100 ml 11/24/24 18:12 11/24/24 18:12 Iohexol 350 Mg/Ml 100 Ml Infus..Btl IV 11/24/24 18:13 85 ml ONCE ONE Administration Methylprednisolone Sodium Succinate 125 mg 11/24/24 15:36 11/24/24 16:02 Methylprednisolone Sod Succ 125 Mg Vial IVPUSH 11/24/24 15:37 125 mg ONCE ONE Administration Morphine Sulfate 4 mg 11/24/24 17:06 11/24/24 17:52 Morphine Sulfate 4 Mg/Ml Cartridge IVPUSH 11/24/24 17:07 4 mg ONCE ONE Administration Protocol Medical Decision Making Medical Decision Making [facility] Narrative: 15:45fever 101.8 has a history of coughing upper respiratory symptoms history of frequent falls. On Plavix. Will get a CT scan of the head to reassess patient's subdural. CT scan C-spine to rule out fracture. CT scan of the chest abdomen pelvis was also ordered. Patient in addition has a temperature 101.8 degrees has coughing upper respiratory symptoms. Cultures are obtained. Hospital-acquired pneumonia pathway was followed. Patient was just discharged from [facility] November 19. COVID flu RSV was sent. Additional neb treatment given. Chest x-ray ordered. Sepsis alert started my interpretation of patient's EKG showed a sinus rhythm heart rate is 80 WI QRS QTC normal there is no acute ST segment elevation. patient's CTA of the chest show evidence for multilobar pneumonia. No PE. Antibiotics already started. Patient was given 30 cc/kilos of fluid focal exam for sepsis was done symptomatically about the same The exam was done at approximately 18:00.. Patient's lactate seems to be more elevated and a 2nd time around. This might be secondary to albuterol. Hospitalist team was consulted patient will require admission. Differential Diagnosis Differential Diagnoses: The differential diagnosis associated with the presentation includes Pneumonia, congestive heart failure, PE, COVID Admission/Observation Consideration of admission/observation: Escalation of care including admission/observation considered Consult Healthcare Provider Management of the patient was discussed with: Hospitalist Lab Data MDM Lab Attestation statement: I reviewed the patient's lab results. 11/24/24 15:42 11/24/24 15:42 Labs: Lab Results 11/24/24 11/24/24 11/24/24 Range/Units 15:42 15:51 17:56 RBC 2.57 L (4.20-5.50) X10*6/uL Hgb 8.8 L (12.0-16.0) g/dl Hct 27.0 L (37.0-47.0) % MCV 105.1 H (80.0-98.0) fL MCH 34.2 H (27.0-33.0) pg MCHC 32.6 (31.0-35.0) g/dl RDW 17.9 H (11.0-16.0) % Plt Count 121 L D (160-400) X10*3/uL MPV 10.1 (9.4-12.3) fL Immature Gran % (Auto) Cancelled Neut % (Auto) Cancelled Lymph % (Auto) Cancelled [place] % (Auto) Cancelled Eos % (Auto) Cancelled Baso % (Auto) Cancelled Lymph # (Auto) Cancelled [place] # (Auto) Cancelled Eos # (Auto) Cancelled Baso # (Auto) Cancelled Abs Immat Gran (auto) Cancelled Absolute Neuts (auto) Cancelled Absolute Nucleated RBC 0.000 (0.0-0.012) X10*3/uL Nucleated RBC % (auto) 0.0 (0.0-0.2) /100WBC PT 12.9 H (10.9-12.4) SEC INR 1.1 (0.9-1.1) VBG pH 7.44 H (7.32-7.43) VBG pCO2 26 mmHg VBG pO2 62 mmHg VBG HCO3 18 L (22-26) mmol/L VBG O2 Saturation 88.0 % VBG Base Excess -4.7 mmol/L Sodium 137 (135-145) mmol/L Potassium 4.1 (3.3-5.1) mmol/L Chloride 108 (96-108) mmol/L Carbon Dioxide 19 L (22-29) mmol/L Anion Gap 14 (12-20) BUN 20 H (9-16) mg/dL Creatinine 1.01 (0.5-1.4) mg/dL Estim Creat Clear Calc 50.6 Estimated GFR 55 Random Glucose 92 (60-115) mg/dL Lactic Acid 3.2 H* (0.5-2.0) mmol/L Lactic Acid F/U @ 2Hr 3.9 H* (0.5-2.0) mmol/L Calcium 8.1 L D (8.4-10.2) mg/dL Troponin I High Sens < 2.7 (<3.5-17.0) ng/L B-Natriuretic Peptide 370 H (<100) pg/mL Urine Color Urine Appearance Urine pH (5.0-9.0) Ur Specific [place] (1.005-1.025) Urine Protein (Neg-Trace) mg/dL Urine Glucose (UA) (Negative) mg/dL Urine Ketones (Negative) mg/dL Urine Blood (Negative) Urine Nitrite (Negative) Ur Leukocyte Esterase (Negative) Urine RBC (0-2) /HPF Urine WBC (0-5) /HPF Ur Squamous Epith Cells (0-2) /HPF Urine Bacteria (None Seen) Hyaline Casts (0-2) /LPF Influenza Type A (PCR) NEGATIVE (Negative) Influenza Type B (PCR) NEGATIVE (Negative) RSV RNA Qual (PCR) NEGATIVE (Negative) SARS-CoV-2 RNA (RT-PCR) POSITIVE A (Negative) 11/24/24 Range/Units 18:08 RBC (4.20-5.50) X10*6/uL Hgb (12.0-16.0) g/dl Hct (37.0-47.0) % MCV (80.0-98.0) fL MCH (27.0-33.0) pg MCHC (31.0-35.0) g/dl RDW (11.0-16.0) % Plt Count (160-400) X10*3/uL MPV (9.4-12.3) fL Immature Gran % (Auto) Neut % (Auto) Lymph % (Auto) [place] % (Auto) Eos % (Auto) Baso % (Auto) Lymph # (Auto) [place] # (Auto) Eos # (Auto) Baso # (Auto) Abs Immat Gran (auto) Absolute Neuts (auto) Absolute Nucleated RBC (0.0-0.012) X10*3/uL Nucleated RBC % (auto) (0.0-0.2) /100WBC PT (10.9-12.4) SEC INR (0.9-1.1) VBG pH (7.32-7.43) VBG pCO2 mmHg VBG pO2 mmHg VBG HCO3 (22-26) mmol/L VBG O2 Saturation % VBG Base Excess mmol/L Sodium (135-145) mmol/L Potassium (3.3-5.1) mmol/L Chloride (96-108) mmol/L Carbon Dioxide (22-29) mmol/L Anion Gap (12-20) BUN (9-16) mg/dL Creatinine (0.5-1.4) mg/dL Estim Creat Clear Calc Estimated GFR Random Glucose (60-115) mg/dL Lactic Acid (0.5-2.0) mmol/L Lactic Acid F/U @ 2Hr (0.5-2.0) mmol/L Calcium (8.4-10.2) mg/dL Troponin I High Sens (<3.5-17.0) ng/L B-Natriuretic Peptide (<100) pg/mL Urine Color Yellow Urine Appearance Clear Urine pH 5.5 (5.0-9.0) Ur Specific [place] 1.015 (1.005-1.025) Urine Protein Negative (Neg-Trace) mg/dL Urine Glucose (UA) Negative (Negative) mg/dL Urine Ketones Negative (Negative) mg/dL Urine Blood Negative (Negative) Urine Nitrite Negative (Negative) Ur Leukocyte Esterase Negative (Negative) Urine RBC 0-2 (0-2) /HPF Urine WBC 0-5 (0-5) /HPF Ur Squamous Epith Cells 0-2 (0-2) /HPF Urine Bacteria None Seen (None Seen) Hyaline Casts 0-2 (0-2) /LPF Influenza Type A (PCR) (Negative) Influenza Type B (PCR) (Negative) RSV RNA Qual (PCR) (Negative) SARS-CoV-2 RNA (RT-PCR) (Negative) ABG Data Attestation ABG: I personally reviewed and interpreted this ABG as follows: Interpretation: my interpretation of patient's VBG showed no extreme metabolic all respiratory acidosis consistent with having pneumonia and hypoxia Independent Interpretation I performed an independent interpretation of an: EKG ( my interpretation of patient's EKG shows sinus rhythm heart rate is 80 WI QRS QTC normal no acute ST s), Plain X-Ray ( question pneumonia noted on the left side.) and CT Scan ( CTA of the chest positive for pneumonia) Independent Historian Clinical information obtained from an independent historian. History obtained from or confirmed by: EMS External Record Review External record reviewed: Inpatient record Social Determinants Patient?s care significantly limited by Social Determinants of Health including: Problems related to primary support group Critical Care Time Critical Care Time Critical Care Time: Yes Total Critical Care Time: 40 Attestation: I have personally provided 40 minutes of critical care time exclusive of time spent on separately billable procedures. Time includes review of lab data, radiology results, discussion with consultants, and monitoring for potential decompensation. Interventions were performed as documented above Discharge Plan Discharge Clinical Impression: Pneumonia, COVID Patient Disposition: Admitted As Inpatient Print Language: Cypriot
[2024-11-24] MEDS: Albuterol Sulfate 5 MG, Albuterol/Iprat 2.5/0.5MG 3 ML 3 ML INHALE (15:54)
[2024-11-24 15:55] LABS: Hemoglobin 8.8 g/dl (12.0-16.0); Mean Corpuscular HGB Conc 32.6 g/dl (31.0-35.0); Mean Corpuscular Hemoglobin 34.2 pg (27.0-33.0); Mean Corpuscular Volume 105.1 fL (80.0-98.0); Mean Platelet Volume 10.1 fL (9.4-12.3); Red Blood Count 2.57 X10*6/uL (4.20-5.50); Red Cell Distribution Width 17.9 % (11.0-16.0)
[2024-11-24 15:56] LABS: VBG Base Excess -4.7 mmol/L; VBG HCO3 18 mmol/L (22-26); VBG pCO2 26 mmHg; VBG pH 7.44 (7.32-7.43); VBG pO2 62 mmHg
[2024-11-24 15:57] LABS: Venous Blood Gas Refer to POC result
--- NOTE | 2024-11-24 15:58 | ECG_ITS ---
Test Reason : DYSPNEA Blood Pressure : */* mmHG Vent. Rate : 82 BPM Atrial Rate : 82 BPM P-R Int : 130 ms QRS Dur : 84 ms QT Int : 380 ms P-R-T Axes : 13 41 62 degrees QTcB Int : 443 ms Normal sinus rhythm Normal ECG When compared with ECG of 12-Nov-2024 11:56, No significant change was found Referred By: Kaleigh Perez Electronically Signed By: MAT PRUITT
[2024-11-24 15:59] LABS: WBC ABN SCTR FOR CBC 1
[2024-11-24 16:00] LABS: Platelet Count 121 X10*3/uL (160-400)
[2024-11-24] MEDS: Acetaminophen 325 MG TABLET 975 MG PO (16:01)
[2024-11-24] MEDS: SODIUM CHLORIDE 2094 ML IV (16:01)
[2024-11-24] MEDS: cefEPime HCl/D5W 2 GM/50 ML PIGGYBACK IV (16:02)
[2024-11-24 16:05] LABS: INTERNATIONAL NORM RATIO 1.1 (0.9-1.1); Prothrombin Time 12.9 SEC (10.9-12.4)
[2024-11-24 16:08] LABS: Anion Gap 14 (12-20); Blood Urea Nitrogen 20 mg/dL (9-16); Calcium 8.1 mg/dL (8.4-10.2); Carbon Dioxide 19 mmol/L (22-29); Chloride 108 mmol/L (96-108); Creatinine Clr Calc Pharmacy 50.6; Estimated Glomerular Filt Rate 55; Glucose Random 92 mg/dL (60-115); Potassium 4.1 mmol/L (3.3-5.1); Sodium 137 mmol/L (135-145)
[2024-11-24 16:12] LABS: Lactic Acid 3.2 mmol/L (0.5-2.0)
--- NOTE | 2024-11-24 16:14 | PC.NURSE ---
Sepsis alert initiated. Daughter now at bedside and confirms SOB x 4 days and recent admission for brain bleed and confusion. States falls at home causing areas of bruising noted to general body. Placed on High Flow 33% Fi02 at 55lpm, tolerating well. Medicated as charted
[2024-11-24 16:15] LABS: B Type Natriuretic Peptide 370 pg/mL (<100)
[2024-11-24 16:16] LABS: Troponin-I High Sensitivity < 2.7 ng/L (<3.5-17.0)
[2024-11-24 16:28] LABS: Influenza A PCR NEGATIVE (Negative); Influenza B PCR NEGATIVE (Negative); Resp Syncy Virus RNA Qual PCR NEGATIVE (Negative); SARS COV2 PCR INHOUSE POSITIVE (Negative)
--- NOTE | 2024-11-24 17:36 | PC.NURSE ---
Pt on Oxymask at 6lpm for transport to CT scan. Pt tolerating well. Daughters remain by side, aware of COVID diagnosis. Pt remains tachypneic and labored but sx and color improved with oxy mask. Sepsis fluids almost completed
[2024-11-24 17:48] LABS: Reflex Lactate? Lactic Acid Added
[2024-11-24] MEDS: Morphine Sulfate 4 MG/ML CARTRIDGE IVPUSH (17:52)
[2024-11-24] MEDS: iohexoL 350 MG/ML 100 ML INFUS..BTL IV (18:12)
[2024-11-24 18:22] LABS: Appearance Urine Clear; Color Urine Yellow; Glucose Urine UA Negative (Negative); Leukocyte Esterase Urine Negative (Negative); Nitrite Urine Negative (Negative); PH 5.5 (5.0-9.0); Specific Gravity - Urine 1.015 (1.005-1.025); Urine Blood Negative (Negative); Urine Ketones Negative (Negative); Urine Protein Negative (Neg-Trace)
[2024-11-24 18:27] LABS: Bacteria Urine None Seen (None Seen); Hyaline Casts Urine 0-2 /LPF (0-2); RBC Urine 0-2 /HPF (0-2); Squamous Epithelial Cell Urine 0-2 /HPF (0-2); WBC Urine 0-5 /HPF (0-5)
--- NOTE | 2024-11-24 18:35 | PC.NURSE ---
Work of breathing has decreased, speaking full sentences, less tachypenic than on arrival. Color has improved. Awaiting results of scans
[2024-11-24 18:36] LABS: ~Lactic Acid-LAB USE ONLY 3.9 mmol/L (0.5-2.0)
[2024-11-24 20:00] LABS: Reflex Lactate? 2 Y
[2024-11-24 21:23] LABS: ~Lactic Acid-LAB USE ONLY 4.2 mmol/L (0.5-2.0)
--- NOTE | 2024-11-24 21:27 | P.HPHOSP_ITS ---
History of Present Illness Date of Service: 11/24/24 Attending physician on admission: Reed Lima Chief Complaint: Shortness of breath, fever, weakness Patient is a 69-year-old female with a past medical history significant for carotid artery stenosis (s/p endarterectomy Jul 2024), peripheral vascular disease (s/p bypass, subclavian stenting), CKD, renal artery stenosis, prior L3?L5 decompression, hypothyroidism, obesity, anxiety, depression, recent Streptococcus bacteremia (10/23?10/30/24), frequent falls, and recent admission at [facility] for small subacute subdural hematoma and acute delirium, who presented to the ED today due to shortness of breath, cough, upper respiratory infection symptoms for the past 4 days. She describes malaise, weakness, fatigue and fever. She reports frequent falls in the last 2 weeks due to her weakness. She was recently discharged from [facility] on 11/19 after a small subacute subdural hematoma with acute delirium. She reports that she has been wheezing but has not been using her inhalers. She denies any chest pain and feels that her shortness of breath has improved since arriving to the ED. She denies any abdominal pain, headache, change in vision, confusion, abdominal pain, nausea, vomiting or urinary symptoms. She reports recent strep bacteremia secondary to dental work. She had an echocardiogram on 10/27/2024 with borderline aortic stenosis and HFpEF, no vegetation seen. Review of Systems 2 Constitutional: Constitutional: Reports fever(s), Reports frequent falls and Denies headache(s) Eyes: Eyes: Denies change in vision and Denies photophobia ENT: Denies headache(s), Reports nasal congestion, Reports nasal discharge and Denies sore throat Cardiovascular: Cardiovascular: Denies chest pain, Denies rapid heart rate, Denies leg edema, Denies lightheadedness and Reports dyspnea Respiratory: Respiratory: Reports chest congestion, Reports cough, Reports dyspnea and Reports wheezing Gastrointestinal: Gastrointestinal: Denies abdominal pain, Denies diarrhea, Denies nausea and Denies vomiting Genitourinary: Genitourinary: Denies difficulty voiding, Denies dysuria and Denies urinary urgency Musculoskeletal: Musculoskeletal: Reports back pain (from fall) Integumentary/Breasts: Skin/Breast: Denies rash Neurologic: Denies confusion, Reports frequent falls and Denies headache(s) Psychiatric: Psychiatric: Denies confusion Hematologic/Lymphatic: Hematologic/Lymphatic: Denies easy bleeding and Denies easy bruising Allergic/Immunologic: Allergic/Immunologic: Reports wheezing [facility] 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 Arthritis of left hip Disc degeneration, lumbar Lumbar facet arthropathy Stenosis, spinal, lumbar Sacroiliac joint pain Lumbar radicular pain Rhinitis Hypothyroidism Anxiety Tachycardia Cough COPD (chronic obstructive pulmonary disease) Surgical History S/P vascular bypass (~08/2024) History of carotid endarterectomy (~07/2024) No pertinent past surgical history Social History Household Members: Children Household Members Other:: daughter Housing: House Are you a primary customer care coordinator to a significant other at home: No Do you presently have visiting nurse or other home services: No Alcohol intake: current Alcohol intake frequency: a few times a week Alcohol type: beer Patient Tobacco Use Status: Former Tobacco user Tobacco use type: Cigarette Cigarette Packs Per Day: 0 Cigarettes Per Day: 2 Smoked in Last 30 Days: No e-Cigarette/Vaping Use: Never Used Use of substances other than those prescribed or required for medical reasons: No Advance Directives: No Advance Directives Information Provided: No service: No Current occupational status: retired Current occupation: right handed, retired Sexual orientation: Unable to collect Gender identity: Unable to collect Cognitive needs: No Hearing needs: No Vision needs: Yes (wears glasses to drive.) Narrative: No smoking, occasional beers, no drug use Meds Allergies Allergy/AdvReac Type Severity Reaction Status Date / Time codeine Allergy Unknown Unknown Verified 11/24/24 15:28 Home Medications ?Medication ?Instructions ?Recorded ?Confirmed ?Last Taken ?Type gabapentin 600 mg tablet 1,200 mg PO BEDTIME 07/12/24 11/24/24 11/23/24 History ipratropium 0.5 mg-albuterol 3 mg 3 ml inhalation Q6H PRN wheezing 07/12/24 11/24/24 Unknown History (2.5 mg base)/3 mL nebulization soln clopidogrel 75 mg tablet 75 mg PO DAILY 08/21/24 11/24/24 11/24/24 History budesonide 0.25 mg/2 mL suspension 0.25 mg inhalation BID PRN 11/24/24 11/24/24 Unknown History for nebulization Shortness Of Breath Or Wheezing bupropion HCl 200 mg tablet,12 hr 200 mg PO DAILY 11/24/24 11/24/24 11/24/24 History sustained-release docusate sodium 100 mg capsule 100 mg PO DAILY PRN Constipation 11/24/24 11/24/24 11/24/24 History (Colace) levothyroxine 75 mcg tablet 75 mcg PO DAILY@0600 11/24/24 11/24/24 11/24/24 History melatonin 10 mg tablet 20 mg PO BEDTIME PRN Sleep 11/24/24 11/24/24 11/24/24 History omeprazole 20 mg capsule,delayed 20 mg PO BID@0630,1630 11/24/24 11/24/24 11/24/24 History release rivaroxaban 2.5 mg tablet (Xarelto) 2.5 mg PO BID 11/24/24 Unknown History sennosides 8.6 mg tablet (senna) 8.6 mg PO DAILY PRN Constipation 11/24/24 11/24/24 11/24/24 History thiamine HCl (vitamin B1) 100 mg 100 mg PO DAILY 11/24/24 11/24/24 11/24/24 History capsule Physical Exam 2 Vital Signs and Narrative: Vital Signs: Last Vital Signs Temp 97.7 F 11/24/24 21:17 Pulse 90 11/24/24 21:17 Resp 24 H 11/24/24 21:17 BP 154/73 H 11/24/24 21:17 Pulse Ox 93 11/24/24 21:18 O2 Del Method Nasal Cannula 11/24/24 21:18 O2 Flow Rate 2 11/24/24 21:18 FiO2 33 11/24/24 17:01 BMI result Body Mass Index 24.8 General: AOx3, no acute distress Resp: + rhonchi and diminished througout, no wheezing CVS: RRR, +murmur GI: +BS, NT, no distention Skin: Warm, dry Neuro: Cranial nerves II-XII grossly intact bilaterally. Motor grossly intact bilaterally Extremities: No LE edema Psych: Appropriate affect Const: General: No confusion Orientation/consciousness: No confusion Eyes: Direct Ophthalmoscopy: No photophobia Neuro: General: No confusion Results Labs 11/24/24 15:42 11/24/24 15:42 Labs: Laboratory Results - last 24 hr 11/24/24 11/24/24 11/24/24 15:42 15:51 17:56 MCV 105.1 H MCH 34.2 H MCHC 32.6 RDW 17.9 H Plt Count 121 L D MPV 10.1 Immature Gran % (Auto) Cancelled Neut % (Auto) Cancelled Lymph % (Auto) Cancelled [place] % (Auto) Cancelled Eos % (Auto) Cancelled Baso % (Auto) Cancelled Lymph # (Auto) Cancelled [place] # (Auto) Cancelled Eos # (Auto) Cancelled Baso # (Auto) Cancelled Abs Immat Gran (auto) Cancelled Absolute Neuts (auto) Cancelled Absolute Nucleated RBC 0.000 Nucleated RBC % (auto) 0.0 PT 12.9 H INR 1.1 VBG pH 7.44 H VBG pCO2 26 VBG pO2 62 VBG HCO3 18 L VBG O2 Saturation 88.0 VBG Base Excess -4.7 Anion Gap 14 Estim Creat Clear Calc 50.6 Estimated GFR 55 Random Glucose 92 Lactic Acid 3.2 H* Lactic Acid F/U @ 2Hr 3.9 H* Lactic Acid F/U @ 4Hr Calcium 8.1 L D Troponin I High Sens < 2.7 B-Natriuretic Peptide 370 H Urine Color Urine Appearance Urine pH Ur Specific [place] Urine Protein Urine Glucose (UA) Urine Ketones Urine Blood Urine Nitrite Ur Leukocyte Esterase Urine RBC Urine WBC Ur Squamous Epith Cells Urine Bacteria Hyaline Casts Influenza Type A (PCR) NEGATIVE Influenza Type B (PCR) NEGATIVE RSV RNA Qual (PCR) NEGATIVE SARS-CoV-2 RNA (RT-PCR) POSITIVE A 11/24/24 11/24/24 18:08 20:41 MCV MCH MCHC RDW Plt Count MPV Immature Gran % (Auto) Neut % (Auto) Lymph % (Auto) [place] % (Auto) Eos % (Auto) Baso % (Auto) Lymph # (Auto) [place] # (Auto) Eos # (Auto) Baso # (Auto) Abs Immat Gran (auto) Absolute Neuts (auto) Absolute Nucleated RBC Nucleated RBC % (auto) PT INR VBG pH VBG pCO2 VBG pO2 VBG HCO3 VBG O2 Saturation VBG Base Excess Anion Gap Estim Creat Clear Calc Estimated GFR Random Glucose Lactic Acid Lactic Acid F/U @ 2Hr Lactic Acid F/U @ 4Hr 4.2 H* Calcium Troponin I High Sens B-Natriuretic Peptide Urine Color Yellow Urine Appearance Clear Urine pH 5.5 Ur Specific [place] 1.015 Urine Protein Negative Urine Glucose (UA) Negative Urine Ketones Negative Urine Blood Negative Urine Nitrite Negative Ur Leukocyte Esterase Negative Urine RBC 0-2 Urine WBC 0-5 Ur Squamous Epith Cells 0-2 Urine Bacteria None Seen Hyaline Casts 0-2 Influenza Type A (PCR) Influenza Type B (PCR) RSV RNA Qual (PCR) SARS-CoV-2 RNA (RT-PCR) Imaging Radiologist's Impressions: Impressions Chest X-Ray 11/24/24 15:38 IMPRESSION: Vague groundglass density in the mid to upper left lung zone representing atelectasis or pneumonia. Electronically signed by: Trenton Roth MD 11/24/2024 04:32 PM EDT RP Assessment and Plan (1) Acute hypoxic respiratory failure: Status: Acute (2) Sepsis: Status: Acute (3) Multifocal pneumonia: Status: Acute (4) COVID: Status: Acute (5) COPD with acute exacerbation: Status: Acute (6) CKD (chronic kidney disease) stage 3, GFR 30-59 ml/min: Qualifiers: Chronic kidney disease stage 3 subtype: stage 3b (GFR 30-44) Qualified Code(s): N18.32 - Chronic kidney disease, stage 3b Status: Chronic (7) Lactic acidosis: Status: Acute Plan Patient is a 69-year-old female with a past medical history significant for carotid artery stenosis (s/p endarterectomy Jul 2024), peripheral vascular disease (s/p bypass, subclavian stenting), CKD, renal artery stenosis, prior L3?L5 decompression, hypothyroidism, obesity, anxiety, depression, recent Streptococcus bacteremia (10/23?10/30/24), frequent falls, and recent admission at [facility] for small subacute subdural hematoma and acute delirium, who presented to the ED today due to shortness of breath, cough, upper respiratory infection symptoms for the past 4 days. Acute hypoxic respiratory failure with sepsis secondary to multifocal pneumonia, COVID and acute COPD exacerbation - WBC pending, tachycardic, tachypenic and temp of 101.8, lactic acid elevated (albuterol likely contributing), blood cultures x2 pending - CXR with Vague groundglass density in the mid to upper left lung zone representing atelectasis or pneumonia. - Chest CTA negative for PE but does show multifocal pneumonia - head CT negative for acute findings - c-spine CT negative for acute findings - A/P CT due to flank bruise with erosions along the endplates of L5-S1 with prevertebral soft tissue fullness raise suspicion for osteomyelitis discitis. recommend MR lumbar spine with and without contrast. - COVID + - BNP 370 - recent echo without vegetation and HFpEF - MRI lumbar spine without contrast due to CKD3 - cefepime and vancomycin for HAP - solumedrol 60mg BID, already given 125mg with good improvement - duoenbs Q6H PRN - ID consult - speech swallow eval due to concern for aspiration pneumonia - NPO - monitor CBC and BMP Lactic acidosis - secondary to sepsis but also acute hypoxia and albuterol contributing - given 30cc/kg fluid bolus in ED - lactic continues to rise, give additional 250ml of LR - limit IVF if possible due to HFpEF and risk of fluid overload Distended gallbladder on CT - no abd pain - HIDA scan - check LFTs CKD3 - at baseline, no NATALIE - avoid nephrotoxins when possible Hypothyroid - continue levothyroxine HTN/CAD - continue home meds Full code VTE prophy: lovenox Patient with acute hypoxic respiratory failure with sepsis secondary to multifocal pneumonia, COVID and acute COPD exacerbation, requiring admission for at least 2 midnight stay for IV antibiotics, steroids and monitoring. Quality Stroke Does the patient have a stroke diagnosis?: No VTE Prior VTE?: No VTE Risk Level:: Medical - moderate - high VTE Device Contraindication: Treatment Not Indicated VTE Drug Contraindication: N/A - Med Ordered
--- NOTE | 2024-11-24 21:39 | PHA.MEDREC ---
Addendum entered by Johnny Jon [facility] 11/24/24 22:01: med rec reviewed Original Note: Pharmacy Consult ? Medication Reconciliation Pharmacy has completed the medication reconciliation. Spoke with pt and she confirmed her medications. Pt states her Dr took her off of the [place] 300mg and Hydralazine 50mg tab in the last day or 2. Pt was not sure if she is taking Xarelto 2.5mg tabs and thinks it sounds familiar but is not really sure at this time; I added but left it unconfirmed on the med rec and will notify the provider on what they would like to do with that medication.
[2024-11-24] MEDS: vancomycin HCL 1,000 MG, vancomycin HCL 750 MG in 0.9 % Sodium Chloride 500 ML 267.5 MG IV (21:47)
[2024-11-24] MEDS: LORazepam 0.5 MG TABLET PO (21:57)
[2024-11-24] MEDS: Enoxaparin Sodium 40 MG/0.4 ML SYRINGE SUBCUT (21:57)
[2024-11-24 22:18] LABS: White Blood Count 1.8 X10*3/uL (4.8-10.8)
--- NOTE | 2024-11-24 22:19 | PHA.PROG ---
Admission Date/Time: November 24, 2024 20:45 Indication: RESPIRATORY Weight in k.8 kg Adjusted body weight in Kg: [place] body weight in Kg: Obesity Dosing Indication % IBW: Serum Creatinine - Last 168 Hours 11/24/24 15:42 Creatinine 1.01 Estimated CrCl and GFR - Last 168 Hours 11/24/24 15:42 Estim Creat Clear Calc 50.6 Estimated GFR 55 Vancomycin Loading Dose: 1750 MG Current Vancomycin Dosing Regimen: 1500 MG Q24H Vancomycin Monitoring using AUC goal of 400 - 600 range with trough as surrogate marker: JYS=[id number] TROUGH=16.6 Date and Time for next Vancomycin Level to be drawn: 11/26/24 @1999 Pharmacist Comments on Vancomycin Plan: Vancomycin dosing will take advantage of [employer] as a clinical decision support tool that uses Bayesian modeling to calculate individual patient's pharmacokinetic parameters and forecast the patient's drug concentration time course with the target goal AUC 24 range of 400 - 600 mg/L/hr.
[2024-11-24 22:34] LABS: Alanine Aminotransferase 24 U/L (0-31); Alkaline Phosphatase 100 U/L (39-117); Aspartate Amino Transferase 29 U/L (5-31); Bilirubin Direct 0.6 mg/dL (0.0-0.5); Total Protein 6.6 g/dL (6.5-8.0)
[2024-11-24 22:52] LABS: Band Neutrophils Percent 15 % (3-5); Eosinophils Percent Manual 1 % (0-4); Lymphocytes Absolute Manual 0.1 X10*3/uL (1.2-4.9); Lymphocytes Percent Manual 7 % (20-40); Metamyelocytes Absolute 0.1 X10*3/uL; Metamyelocytes Percent 6 %; Monocytes Absolute Manual 0.1 X10*3/uL (0.1-1.2); Monocytes Percent Manual 5 % (2-11); Myelocytes Absolute 0.1 X10*/uL; Myelocytes Percent 5 %; Neutrophils Absolute Manual 1.3 X10*3/uL (2.0-8.3); Neutrophils Percent Manual 59 % (45-73); Promyelocytes Percent 2 %
[2024-11-24 22:53] LABS: RBC Morphology NOTED; Tear Drop Cells 1+ (0-2) /OIF
[2024-11-24 22:54] LABS: Polychromasia 1+ (0-2) /OIF
[2024-11-24 22:55] LABS: Dohle Bodies PRESENT; Platelet Estimate SLIGHTLY DECREASED (NORMAL)
[2024-11-24 22:56] LABS: Large Platelet PRESENT; Ovalocytes 1+ (5-14) /OIF; Platelet Morphology Comment NOTED
[2024-11-24] MEDS: Lactated Ringers 250 ML 999 ML IV (23:07)
[2024-11-24] MEDS: oxyCODONE HCl Immed Release 5 MG TABLET PO (23:11)
[2024-11-25] VITALS (10 sets, daily range): BP systolic 123–191; BP diastolic 59–84; PULSE 87–102; RESP 16–30; TEMP 36.3–37.6; O2SAT 94–98; BMI 25.4
--- NOTE | 2024-11-25 00:37 | PC.NURSE ---
cef 0000 dose not given on time as pt currently has vanco running.
[2024-11-25] MEDS: cefEPime HCl/D5W 2 GM/50 ML PIGGYBACK IV ×2 (02:36→12:05)
[2024-11-25 05:05] LABS: Hematocrit 27.4 % (37.0-47.0); Hemoglobin 8.8 g/dl (12.0-16.0); Mean Corpuscular HGB Conc 32.1 g/dl (31.0-35.0); Mean Corpuscular Hemoglobin 34.2 pg (27.0-33.0); Mean Corpuscular Volume 106.6 fL (80.0-98.0); Mean Platelet Volume 10.1 fL (9.4-12.3); Platelet Count 100 X10*3/uL (160-400); Red Blood Count 2.57 X10*6/uL (4.20-5.50); Red Cell Distribution Width 17.6 % (11.0-16.0)
[2024-11-25 05:16] LABS: WBC ABN SCTR FOR CBC 1; White Blood Count 2.1 X10*3/uL (4.8-10.8)
[2024-11-25 05:17] LABS: Anion Gap 13 (12-20); Blood Urea Nitrogen 18 mg/dL (9-16); Calcium 7.8 mg/dL (8.4-10.2); Carbon Dioxide 18 mmol/L (22-29); Chloride 111 mmol/L (96-108); Creatinine Clr Calc Pharmacy 65.5; Estimated Glomerular Filt Rate > 60; Glucose Random 122 mg/dL (60-115); Potassium 3.9 mmol/L (3.3-5.1); Sodium 138 mmol/L (135-145)
[2024-11-25] MEDS: Levothyroxine Sodium 75 MCG TABLET PO (05:29)
[2024-11-25] MEDS: Pantoprazole Sodium 20 MG TABLET.DR 40 MG PO ×2 (05:29→16:12)
[2024-11-25 05:36] LABS: Band Neutrophils Percent 28 % (3-5); Lymphocytes Absolute Manual 0.1 X10*3/uL (1.2-4.9); Lymphocytes Percent Manual 7 % (20-40); Metamyelocytes Percent 2 %; Monocytes Absolute Manual 0.1 X10*3/uL (0.1-1.2); Monocytes Percent Manual 3 % (2-11); Myelocytes Percent 1 %; Neutrophils Absolute Manual 1.8 X10*3/uL (2.0-8.3); Neutrophils Percent Manual 59 % (45-73)
[2024-11-25 05:37] LABS: Macrocytosis 1+ (5-14) /OIF; RBC Morphology NOTED
[2024-11-25 05:38] LABS: Burr Cells 1+ (0-2) /OIF; Dohle Bodies PRESENT; Ovalocytes 1+ (5-14) /OIF; Polychromasia 1+ (0-2) /OIF; Tear Drop Cells 1+ (0-2) /OIF; Toxic Granulation PRESENT
[2024-11-25 05:39] LABS: Large Platelet PRESENT; Platelet Estimate DECREASED (NORMAL); Platelet Morphology Comment NOTED
--- NOTE | 2024-11-25 07:26 | HO.PM.IMPN ---
Subjective Subjective Date of Service: 11/25/24 Interval History: f/u on sepsis, multifocal pna and covid breathing is better, bp pretty high, denies pain Physical Exam Vital Signs: Vital Signs: Last Vital Signs Temp 99.6 F 11/25/24 05:32 Pulse 99 11/25/24 05:32 Resp 30 H 11/25/24 05:32 BP 191/71 H 11/25/24 05:32 Pulse Ox 95 11/25/24 05:32 O2 Del Method Nasal Cannula 11/25/24 05:32 O2 Flow Rate 2 11/25/24 05:32 FiO2 33 11/24/24 17:01 BMI result Body Mass Index 24.8 Const: Other: General: AO X 3, no acute distress Resp: CTA bilateral CVS: S1,S2,RRR GI: +BS, NT, no distention Skin: No rash Neuro: motor grossly intact Psych: appropriate affect Objective Data Active Medications Acetaminophen (Acetaminophen 325 Mg Tablet) 975 mg PO Q6H PRN PRN Reason: Pain, Mild 1-3,fever,headache Albuterol/Ipratropium (Albuterol/Iprat 2.5/0.5mg 3 Ml Ampul.Neb) 3 ml INHALE RQ6H WHILE AWAKE [facility] Aspirin (Aspirin Enteric Coated 81 Mg Tablet.Dr) 81 mg PO DAILY [facility] Atorvastatin Calcium (Atorvastatin Calcium 40 Mg Tablet) 40 mg PO DAILY [facility] Bupropion HCl (Bupropion Hcl Xl 150 Mg Tab.Er.24h) 150 mg PO DAILY [facility] Calcium Carbonate (Calcium Carbonate 750 Mg Tab.Chew) 750 mg PO Q4H PRN PRN Reason: Heartburn Clopidogrel Bisulfate (Clopidogrel Bisulfate 75 Mg Tablet) 75 mg PO DAILY [facility] Docusate Sodium (Docusate Sodium 100 Mg Capsule) 100 mg PO DAILY PRN PRN Reason: Constipation Enoxaparin Sodium (Enoxaparin Sodium 40 Mg/0.4 Ml Syringe) 40 mg SUBCUT Q24H [facility] Last Admin: 11/24/24 21:57 Dose: 40 mg Documented By: LEIGHANN Furosemide (Furosemide 20 Mg Tablet) 20 mg PO DAILY [facility]; Protocol Gabapentin (Gabapentin 600 Mg Tablet) 1,200 mg PO BEDTIME [facility] Cefepime HCl (Maxipime) 2 gm in 50 mls @ 100 mls/hr IV Q12H [facility] Last Infusion: 11/25/24 03:06 Dose: Infused Documented By: WHITLEY Vancomycin HCl 1,500 mg/ (Sodium Chloride) 500 mls @ 333.333 mls/hr IV Q24H [facility] Isosorbide Mononitrate (Isosorbide Mononitrate 30 Mg Tab.Er.24h) 30 mg PO DAILY [facility]; Protocol Levothyroxine Sodium (Levothyroxine Sodium 75 Mcg Tablet) 75 mcg PO DAILY@0600 [facility] Last Admin: 11/25/24 05:29 Dose: 75 mcg Documented By: LEIGHANN Lorazepam (Lorazepam 0.5 Mg Tablet) 0.5 mg PO BEDTIME PRN PRN Reason: anxiety Magnesium Hydroxide (Milk Of Magnesia 30 Ml Oral.Susp) 30 ml PO DAILY PRN PRN Reason: Constipation Melatonin (Melatonin 3 Mg Tablet) 6 mg PO BEDTIME PRN PRN Reason: Insomnia Methylprednisolone Sodium Succinate (Methylprednisolone Sod Succ 125 Mg Vial) 60 mg IVPUSH BID [facility] Ondansetron HCl (Ondansetron Hcl 4 Mg/2 Ml Vial) 4 mg IVPUSH Q8H PRN PRN Reason: Nausea and Vomiting Oxycodone HCl (Oxycodone Hcl Immed Release 5 Mg Tablet) 5 mg PO Q6H PRN PRN Reason: Pain, Severe (Pain Scale 7-10) Last Admin: 11/24/24 23:11 Dose: 5 mg Documented By: WHITLEY Pantoprazole Sodium (Pantoprazole Sodium 20 Mg Tablet.) 40 mg PO BID@0630,1630 [facility] Last Admin: 11/25/24 05:29 Dose: 40 mg Documented By: LEIGHANN Pharmacy Consult (Consult Rx Vancomycin Dosing) 1 each MISCELLANE DAILY PRN PRN Reason: Consult order Senna (Sennosides 8.6 Mg Tablet) 8.6 mg PO DAILY PRN PRN Reason: Constipation Sertraline HCl (Sertraline Hcl 100 Mg Tablet) 100 mg PO DAILY [facility] Sodium Chloride (0.9 % Sodium Chloride Flush 3 Ml Syringe) 3 ml IVFLUSH QSHIFT [facility] Last Admin: 11/25/24 01:21 Dose: Not Given Documented By: WHITLEY Non-Admin Reason: IV Running Thiamine HCl (Thiamine Hcl 100 Mg Tablet) 100 mg PO DAILY [facility] Tramadol HCl (Tramadol Hcl 50 Mg Tablet) 50 mg PO Q6H PRN PRN Reason: Pain, Moderate(Pain Scale 4-6) Labs 11/25/24 04:42 11/25/24 04:42 Labs: Laboratory Results - last 24 hr 11/24/24 11/24/24 11/24/24 15:42 15:51 17:56 MCV 105.1 H MCH 34.2 H MCHC 32.6 RDW 17.9 H Plt Count 121 L D MPV 10.1 Immature Gran % (Auto) Cancelled Neut % (Auto) Cancelled Lymph % (Auto) Cancelled [place] % (Auto) Cancelled Eos % (Auto) Cancelled Baso % (Auto) Cancelled Lymph # (Auto) Cancelled [place] # (Auto) Cancelled Eos # (Auto) Cancelled Baso # (Auto) Cancelled Abs Immat Gran (auto) Cancelled Absolute Neuts (auto) Cancelled Absolute Nucleated RBC 0.000 Nucleated RBC % (auto) 0.0 Neutrophils % (Manual) 59 Band Neutrophils % 15 H Lymphocytes % (Manual) 7 L Monocytes % (Manual) 5 Eosinophils % (Manual) 1 Metamyelocytes % 6 Myelocytes % 5 Promyelocytes % 2 Abs Neuts (Manual) 1.3 L Lymphocytes # (Manual) 0.1 L Monocytes # (Manual) 0.1 Metamyelocytes # 0.1 Myelocytes # 0.1 Toxic Granulation Dohle Bodies PRESENT Platelet Estimate SLIGHTLY DECREASED Large Platelets PRESENT Plt Morphology Comment NOTED RBC Morphology NOTED Polychromasia 1+ (0-2) Macrocytosis Tear Drop Cells 1+ (0-2) Ovalocytes 1+ (5-14) Sandy Cells PT 12.9 H INR 1.1 VBG pH 7.44 H VBG pCO2 26 VBG pO2 62 VBG HCO3 18 L VBG O2 Saturation 88.0 VBG Base Excess -4.7 Anion Gap 14 Estim Creat Clear Calc 50.6 Estimated GFR 55 Random Glucose 92 Lactic Acid 3.2 H* Lactic Acid F/U @ 2Hr 3.9 H* Lactic Acid F/U @ 4Hr Calcium 8.1 L D Total Bilirubin 1.0 Direct Bilirubin 0.6 H AST 29 ALT 24 Alkaline Phosphatase 100 Troponin I High Sens < 2.7 B-Natriuretic Peptide 370 H Total Protein 6.6 Albumin 3.0 L Urine Color Urine Appearance Urine pH Ur Specific [place] Urine Protein Urine Glucose (UA) Urine Ketones Urine Blood Urine Nitrite Ur Leukocyte Esterase Urine RBC Urine WBC Ur Squamous Epith Cells Urine Bacteria Hyaline Casts Influenza Type A (PCR) NEGATIVE Influenza Type B (PCR) NEGATIVE RSV RNA Qual (PCR) NEGATIVE SARS-CoV-2 RNA (RT-PCR) POSITIVE A 11/24/24 11/24/24 11/25/24 18:08 20:41 04:42 MCV 106.6 H MCH 34.2 H MCHC 32.1 RDW 17.6 H Plt Count 100 L MPV 10.1 Immature Gran % (Auto) Cancelled Neut % (Auto) Cancelled Lymph % (Auto) Cancelled [place] % (Auto) Cancelled Eos % (Auto) Cancelled Baso % (Auto) Cancelled Lymph # (Auto) Cancelled [place] # (Auto) Cancelled Eos # (Auto) Cancelled Baso # (Auto) Cancelled Abs Immat Gran (auto) Cancelled Absolute Neuts (auto) Cancelled Absolute Nucleated RBC 0.000 Nucleated RBC % (auto) 0.0 Neutrophils % (Manual) 59 Band Neutrophils % 28 H Lymphocytes % (Manual) 7 L Monocytes % (Manual) 3 Eosinophils % (Manual) Metamyelocytes % 2 Myelocytes % 1 Promyelocytes % Abs Neuts (Manual) 1.8 L Lymphocytes # (Manual) 0.1 L Monocytes # (Manual) 0.1 Metamyelocytes # Myelocytes # Toxic Granulation PRESENT Dohle Bodies PRESENT Platelet Estimate DECREASED Large Platelets PRESENT Plt Morphology Comment NOTED RBC Morphology NOTED Polychromasia 1+ (0-2) Macrocytosis 1+ (5-14) Tear Drop Cells 1+ (0-2) Ovalocytes 1+ (5-14) [place] Cells 1+ (0-2) PT INR VBG pH VBG pCO2 VBG pO2 VBG HCO3 VBG O2 Saturation VBG Base Excess Anion Gap 13 Estim Creat Clear Calc 65.5 Estimated GFR > 60 Random Glucose 122 H Lactic Acid Lactic Acid F/U @ 2Hr Lactic Acid F/U @ 4Hr 4.2 H* Calcium 7.8 L Total Bilirubin Direct Bilirubin AST ALT Alkaline Phosphatase Troponin I High Sens B-Natriuretic Peptide Total Protein Albumin Urine Color Yellow Urine Appearance Clear Urine pH 5.5 Ur Specific [place] 1.015 Urine Protein Negative Urine Glucose (UA) Negative Urine Ketones Negative Urine Blood Negative Urine Nitrite Negative Ur Leukocyte Esterase Negative Urine RBC 0-2 Urine WBC 0-5 Ur Squamous Epith Cells 0-2 Urine Bacteria None Seen Hyaline Casts 0-2 Influenza Type A (PCR) Influenza Type B (PCR) RSV RNA Qual (PCR) SARS-CoV-2 RNA (RT-PCR) Assessment and Plan (1) Multifocal pneumonia: Status: Acute (2) COPD with acute exacerbation: Status: Acute (3) Cough: Status: Acute Plan Patient is a 69-year-old female with a past medical history significant for carotid artery stenosis (s/p endarterectomy Jul 2024), peripheral vascular disease (s/p bypass, subclavian stenting), CKD, renal artery stenosis, prior L3?L5 decompression, hypothyroidism, obesity, anxiety, depression, recent Streptococcus bacteremia (10/23?10/30/24), frequent falls, and recent admission at [facility] for small subacute subdural hematoma and acute delirium, who presented to the ED today due to shortness of breath, cough, upper respiratory infection symptoms for the past 4 days and found to have covid, pna, sepsis Acute hypoxic respiratory failure with sepsis secondary to multifocal pneumonia, Covid 19 and copd exacerbation Cefepime and vanco for PNA supportive care for covid Bronchodilator and corticosteroid for COPD exacerbation O2 with goal of 92 to 94 % ID consult if positive blood cultures or osteomlyitis on MR (see below) follow cultures. SENIOR DATA MINING ANALYST for aspiration concerns Left flank Bruise, ESR 116 CT shows erosions along the endplates of L5-S1 with prevertebral soft tissue fullness raise suspicion for osteomyelitis discitis. MR +/- contrast to rule OM/diskitis check CRP Mild hyperchloremic metabolic acidosis, likely from NS LR and reasess Acute Lactic acidosis d/t sepsis, hypoxia, albuterol, got fluid per sepsis protocol Distended gallbladder on CT, no abd pain, LFTs normal HIDA, if positive surgery consult CKD3, baseline Hypothyroid continue levothyroxine HTN/CAD continue home meds and adjust as needed Full code VTE prophy: lovenox Patient with acute hypoxic respiratory failure with sepsis secondary to multifocal pneumonia, COVID and acute COPD exacerbation, requiring admission for at least 2 midnight stay for IV antibiotics, steroids and monitoring. Quality Stroke Does the patient have a stroke diagnosis?: No VTE Prior VTE?: No VTE Risk Level:: Medical - moderate - high VTE Device Contraindication: Treatment Not Indicated VTE Drug Contraindication: N/A - Med Ordered
[2024-11-25 08:04] LABS: C Reactive Protein 30.12 mg/dL (< or = 0.50)
[2024-11-25] MEDS: Albuterol/Iprat 2.5/0.5MG 3 ML AMPUL.NEB INHALE ×2 (08:11→18:53)
[2024-11-25 08:37] LABS: Erythrocyte Sedimentation Rate 116 MM/HR (0-20)
--- NOTE | 2024-11-25 09:09 | MHC.SL.SWA ---
Speech Pathologist Impression: Dysphagia secondary to weakness, compromised respiratory status Risk of Aspiration Due to: Weakness Recent hx subacute subdural hematoma Respiratory status Dysphasia Diet Status: Recc LIQUID diet to start, THIN consistency. Aspiration precautions. CORK PRESSING MACHINE OPERATOR to assess tolerance of solids/purees when pt willing to accept further trials. Recc RD consultation to assess nutritional needs. Liquid Consistency and Strategies for Safe Swallow: Liquid Intake Recommendation: Thin Liquid Intake Strategies: Solid Food Consistency: Dietary Recommendations: Liquid diet to start Additional Modifications to Solid Foods: Oral Medication Intake: Whole with Liquid Please contact the pharmacy regarding appropriate crushable or liquid drug formulations that are available whenever modified delivery is recommended. Compensatory Strategies and Precautions to be Taken for Safe Swallow: Supervision While Eating and Drinking for Safe Swallow: Total Assistance (1:1) Foods to Avoid: Swallowing Recommended Treatments: Recommendation for Speech: Further Testing Needed Inpatient Speech Therapy Comment: Pt oral motor functioning WFL but pt is weak. Pt voice is low, absent of wetness. Pt has limited strength at this time and refused solids during evaluation. Pt tolerated sips of thins by cup with adequate oropharyngeal coordination. No overt s/s of aspiration observed with trials. Anticipate pt intake to be minimal at this time given overall deconditioning. Pt has hx of recent subacute subdural hematoma, CORK PRESSING MACHINE OPERATOR services were planned this week but pt hospitalized. Pt will need CORK PRESSING MACHINE OPERATOR tx inpatient to monitor/assess swallowing and possibly to assess language/cognition given recent neurological change. Request RD consultation for nutritional input. MD notified via secure text. Results of clinical bedside swallow evaluation communicated with RN in ED. Frequency/Duration: Daily M-F Date Range for Service Req: Timeline to reassess: [employer] Clinican/Clinical Fellow: No Supervisory Statement: I have reviewed and agree with the student/clinical fellow's documentation: N/A Speech Language Pathologist: Brooklyn Aguilera M.S., CCC-CORK PRESSING MACHINE OPERATOR
[2024-11-25] MEDS: Isosorbide Mononitrate 30 MG TAB.ER.24H PO (09:42)
[2024-11-25] MEDS: Clopidogrel Bisulfate 75 MG TABLET PO (09:42)
[2024-11-25] MEDS: Furosemide 20 MG TABLET PO (09:42)
[2024-11-25] MEDS: Aspirin Enteric Coated 81 MG TABLET.DR PO (09:42)
[2024-11-25] MEDS: buPROPion HCl XL 150 MG TAB.ER.24H PO (09:42)
[2024-11-25] MEDS: Thiamine HCL 100 MG TABLET PO (09:43)
[2024-11-25] MEDS: Atorvastatin Calcium 40 MG TABLET PO (09:43)
[2024-11-25] MEDS: amLODIPine Besylate 2.5 MG TABLET PO (09:45)
[2024-11-25] MEDS: Acetaminophen 325 MG TABLET 975 MG PO (10:19)
[2024-11-25] MEDS: Sertraline HCL 100 MG TABLET PO (10:20)
[2024-11-25] MEDS: 0.9 % Sodium Chloride Flush 3 ML SYRINGE IVFLUSH ×2 (10:23→16:12)
[2024-11-25] MEDS: oxyCODONE HCl Immed Release 5 MG TABLET PO ×2 (12:20→21:11)
[2024-11-25 13:56] LABS: MRSA Nasal PCR NEGATIVE (Negative); SA Nasal PCR POSITIVE (Negative)
--- NOTE | 2024-11-25 14:01 | MHC.CM.PN ---
PT LIVES WITH DGTER SHE WAS RECENTLY RELEASED FROM [facility] WHERE SHE STAYED FOR A WEEK AND WENT HOME WITH DGTER WITH [facility] DC PLAN PENDING PT EVAL HOME W/[facility] VS STR
[2024-11-25] MEDS: traMADoL HCL 50 MG TABLET PO (16:12)
[2024-11-25] MEDS: Enoxaparin Sodium 40 MG/0.4 ML SYRINGE SUBCUT (21:11)
[2024-11-25] MEDS: Gabapentin 600 MG TABLET 1200 MG PO (21:11)
[2024-11-25] MEDS: vancomycin HCL 1,500 MG in 0.9 % Sodium Chloride 500 ML 333.33 MG IV (21:13)
[2024-11-26] VITALS (9 sets, daily range): BP systolic 131–178; BP diastolic 60–78; PULSE 78–103; RESP 16–20; TEMP 36.2–37.6; O2SAT 93–100; BMI 25.4
[2024-11-26] MEDS: 0.9 % Sodium Chloride Flush 3 ML SYRINGE IVFLUSH ×3 (00:05→22:45)
[2024-11-26] MEDS: cefEPime HCl/D5W 2 GM/50 ML PIGGYBACK IV ×2 (00:06→14:35)
[2024-11-26] MEDS: Pantoprazole Sodium 20 MG TABLET.DR 40 MG PO ×2 (05:59→16:36)
[2024-11-26] MEDS: Levothyroxine Sodium 75 MCG TABLET PO (06:00)
[2024-11-26 06:58] LABS: Hematocrit 26.7 % (37.0-47.0); Hemoglobin 8.9 g/dl (12.0-16.0); Mean Corpuscular HGB Conc 33.3 g/dl (31.0-35.0); Mean Corpuscular Hemoglobin 34.1 pg (27.0-33.0); Mean Corpuscular Volume 102.3 fL (80.0-98.0); Mean Platelet Volume 10.2 fL (9.4-12.3); NRBC Pct Auto 0.7 /100WBC (0.0-0.2); Platelet Count 111 X10*3/uL (160-400); Red Blood Count 2.61 X10*6/uL (4.20-5.50); Red Cell Distribution Width 17.5 % (11.0-16.0)
[2024-11-26 07:02] LABS: WBC ABN SCTR FOR CBC 1
[2024-11-26 07:30] LABS: Anion Gap 12 (12-20); Blood Urea Nitrogen 19 mg/dL (9-16); Calcium 8.7 mg/dL (8.4-10.2); Carbon Dioxide 24 mmol/L (22-29); Chloride 108 mmol/L (96-108); Creatinine Clr Calc Pharmacy 74.6; Estimated Glomerular Filt Rate > 60; Glucose Random 78 mg/dL (60-115); Potassium 3.5 mmol/L (3.3-5.1); Sodium 140 mmol/L (135-145)
[2024-11-26] MEDS: Albuterol/Iprat 2.5/0.5MG 3 ML AMPUL.NEB INHALE (07:46)
[2024-11-26 07:58] LABS: Atypical Lymphs Percent Manual 3 % (0-6); Band Neutrophils Percent 4 % (3-5); Eosinophils Percent Manual 1 % (0-4); Lymphocytes Percent Manual 9 % (20-40); Monocytes Percent Manual 7 % (2-11); Neutrophils Percent Manual 78 % (45-73); Nucleated Red Blood Cells 3 /100WBC (0-0)
[2024-11-26 07:59] LABS: Burr Cells 1+ (0-2) /OIF; Dohle Bodies PRESENT; Ovalocytes 1+ (5-14) /OIF; Platelet Estimate SLIGHTLY DECREASED (NORMAL); Platelet Morphology Comment NORMAL; RBC Morphology NOTED; Tear Drop Cells 1+ (0-2) /OIF; Toxic Granulation PRESENT
[2024-11-26 08:22] LABS: Atypical Lymph Absolute Manual 0.1 x10*3/uL; Lymphocytes Absolute Manual 0.2 X10*3/uL (1.2-4.9); Monocytes Absolute Manual 0.2 X10*3/uL (0.1-1.2); Neutrophils Absolute Manual 2.2 X10*3/uL (2.0-8.3); White Blood Count 2.7 X10*3/uL (4.8-10.8)
[2024-11-26] MEDS: Isosorbide Mononitrate 30 MG TAB.ER.24H PO (10:13)
[2024-11-26] MEDS: buPROPion HCl XL 150 MG TAB.ER.24H PO (10:13)
[2024-11-26] MEDS: Clopidogrel Bisulfate 75 MG TABLET PO (10:14)
[2024-11-26] MEDS: Furosemide 20 MG TABLET PO (10:14)
[2024-11-26] MEDS: Atorvastatin Calcium 40 MG TABLET PO (10:19)
[2024-11-26] MEDS: amLODIPine Besylate 2.5 MG TABLET PO (10:19)
[2024-11-26] MEDS: Aspirin Enteric Coated 81 MG TABLET.DR PO (10:20)
[2024-11-26] MEDS: Sertraline HCL 100 MG TABLET PO (10:20)
[2024-11-26] MEDS: Thiamine HCL 100 MG TABLET PO (10:20)
--- NOTE | 2024-11-26 10:43 | HO.PM.IMPN ---
Subjective Subjective Date of Service: 11/26/24 Interval History: f/u on sepsis, multifocal pna and covid breathing is better, bp better, remains on oxygen Physical Exam Vital Signs: Vital Signs: Last Vital Signs Temp 99.5 F 11/26/24 08:00 Pulse 102 H 11/26/24 08:00 Resp 20 11/26/24 08:00 BP 140/78 H 11/26/24 10:14 Pulse Ox 93 11/26/24 08:00 O2 Del Method Nasal Cannula 11/26/24 08:00 O2 Flow Rate 2 11/26/24 08:00 FiO2 33 11/24/24 17:01 BMI result Body Mass Index 25.4 Const: Other: General: AO X 3, no acute distress Resp: CTA bilateral CVS: S1,S2,RRR GI: +BS, NT, no distention Skin: No rash Neuro: motor grossly intact Psych: appropriate affect Objective Data Active Medications Acetaminophen (Acetaminophen 325 Mg Tablet) 975 mg PO Q6H PRN PRN Reason: Pain, Mild 1-3,fever,headache Last Admin: 11/25/24 10:19 Dose: 975 mg Documented By: BHARTI Albuterol/Ipratropium (Albuterol/Iprat 2.5/0.5mg 3 Ml Ampul.Neb) 3 ml INHALE RQ6H WHILE AWAKE [facility] Last Admin: 11/26/24 07:46 Dose: 3 ml Documented By: JUSTINE Amlodipine Besylate (Amlodipine Besylate 2.5 Mg Tablet) 2.5 mg PO DAILY [facility]; Protocol Last Admin: 11/26/24 10:19 Dose: 2.5 mg Documented By: SWETHA Aspirin (Aspirin Enteric Coated 81 Mg Tablet.Dr) 81 mg PO DAILY [facility] Last Admin: 11/26/24 10:20 Dose: 81 mg Documented By: SWETHA Atorvastatin Calcium (Atorvastatin Calcium 40 Mg Tablet) 40 mg PO DAILY [facility] Last Admin: 11/26/24 10:19 Dose: 40 mg Documented By: SWETHA Bupropion HCl (Bupropion Hcl Xl 150 Mg Tab.Er.24h) 150 mg PO DAILY [facility] Last Admin: 11/26/24 10:13 Dose: 150 mg Documented By: SWETHA Calcium Carbonate (Calcium Carbonate 750 Mg Tab.Chew) 750 mg PO Q4H PRN PRN Reason: Heartburn Clopidogrel Bisulfate (Clopidogrel Bisulfate 75 Mg Tablet) 75 mg PO DAILY [facility] Last Admin: 11/26/24 10:14 Dose: 75 mg Documented By: SWETHA Docusate Sodium (Docusate Sodium 100 Mg Capsule) 100 mg PO DAILY PRN PRN Reason: Constipation Enoxaparin Sodium (Enoxaparin Sodium 40 Mg/0.4 Ml Syringe) 40 mg SUBCUT Q24H [facility] Last Admin: 11/25/24 21:11 Dose: 40 mg Documented By: VICENTE Furosemide (Furosemide 20 Mg Tablet) 20 mg PO DAILY [facility]; Protocol Last Admin: 11/26/24 10:14 Dose: 20 mg Documented By: SWETHA Gabapentin (Gabapentin 600 Mg Tablet) 1,200 mg PO BEDTIME [facility] Last Admin: 11/25/24 21:11 Dose: 1,200 mg Documented By: VICENTE Cefepime HCl (Maxipime) 2 gm in 50 mls @ 100 mls/hr IV Q12H [facility] Last Infusion: 11/26/24 00:41 Dose: Infused Documented By: JACKIE Vancomycin HCl 1,500 mg/ (Sodium Chloride) 500 mls @ 333.333 mls/hr IV Q24H [facility] Last Infusion: 11/26/24 00:08 Dose: Infused Documented By: JACKIE Isosorbide Mononitrate (Isosorbide Mononitrate 30 Mg Tab.Er.24h) 30 mg PO DAILY [facility]; Protocol Last Admin: 11/26/24 10:13 Dose: 30 mg Documented By: SWETHA Levothyroxine Sodium (Levothyroxine Sodium 75 Mcg Tablet) 75 mcg PO DAILY@0600 [facility] Last Admin: 11/26/24 06:00 Dose: 75 mcg Documented By: JACKIE Lorazepam (Lorazepam 0.5 Mg Tablet) 0.5 mg PO BEDTIME PRN PRN Reason: anxiety Magnesium Hydroxide (Milk Of Magnesia 30 Ml Oral.Susp) 30 ml PO DAILY PRN PRN Reason: Constipation Melatonin (Melatonin 3 Mg Tablet) 6 mg PO BEDTIME PRN PRN Reason: Insomnia Methylprednisolone Sodium Succinate (Methylprednisolone Sod Succ 125 Mg Vial) 60 mg IVPUSH BID [facility] Last Admin: 11/26/24 10:21 Dose: 60 mg Documented By: SWETHA Ondansetron HCl (Ondansetron Hcl 4 Mg/2 Ml Vial) 4 mg IVPUSH Q8H PRN PRN Reason: Nausea and Vomiting Oxycodone HCl (Oxycodone Hcl Immed Release 5 Mg Tablet) 5 mg PO Q6H PRN PRN Reason: Pain, Severe (Pain Scale 7-10) Last Admin: 11/25/24 21:11 Dose: 5 mg Documented By: VICENTE Pantoprazole Sodium (Pantoprazole Sodium 20 Mg Tablet.) 40 mg PO BID@0630,1630 [facility] Last Admin: 11/26/24 05:59 Dose: 40 mg Documented By: JACKIE Pharmacy Consult (Consult Rx Vancomycin Dosing) 1 each MISCELLANE DAILY PRN PRN Reason: Consult order Senna (Sennosides 8.6 Mg Tablet) 8.6 mg PO DAILY PRN PRN Reason: Constipation Sertraline HCl (Sertraline Hcl 100 Mg Tablet) 100 mg PO DAILY [facility] Last Admin: 11/26/24 10:20 Dose: 100 mg Documented By: SWETHA Sodium Chloride (0.9 % Sodium Chloride Flush 3 Ml Syringe) 3 ml IVFLUSH QSHIFT [facility] Last Admin: 11/26/24 10:11 Dose: 3 ml Documented By: SWETHA Thiamine HCl (Thiamine Hcl 100 Mg Tablet) 100 mg PO DAILY [facility] Last Admin: 11/26/24 10:20 Dose: 100 mg Documented By: SWETHA Tramadol HCl (Tramadol Hcl 50 Mg Tablet) 50 mg PO Q6H PRN PRN Reason: Pain, Moderate(Pain Scale 4-6) Last Admin: 11/25/24 16:12 Dose: 50 mg Documented By: AZAEL Labs 11/26/24 06:32 11/26/24 06:32 Labs: Laboratory Results - last 24 hr 11/25/24 11/26/24 12:20 06:32 MCV 102.3 H MCH 34.1 H MCHC 33.3 RDW 17.5 H Plt Count 111 L MPV 10.2 Immature Gran % (Auto) Cancelled Neut % (Auto) Cancelled Lymph % (Auto) Cancelled [place] % (Auto) Cancelled Eos % (Auto) Cancelled Baso % (Auto) Cancelled Lymph # (Auto) Cancelled [place] # (Auto) Cancelled Eos # (Auto) Cancelled Baso # (Auto) Cancelled Abs Immat Gran (auto) Cancelled Absolute Neuts (auto) Cancelled Absolute Nucleated RBC 0.020 H Nucleated RBC % (auto) 0.7 H Neutrophils % (Manual) 78 H Band Neutrophils % 4 Lymphocytes % (Manual) 9 L Atypical Lymphs % (Man) 3 Monocytes % (Manual) 7 Eosinophils % (Manual) 1 Abs Neuts (Manual) 2.2 Lymphocytes # (Manual) 0.2 L Atyp Lymphs # (Manual) 0.1 Monocytes # (Manual) 0.2 Nucleated RBCs 3 H Toxic Granulation PRESENT Dohle Bodies PRESENT Platelet Estimate SLIGHTLY DECREASED Plt Morphology Comment NORMAL RBC Morphology NOTED Tear Drop Cells 1+ (0-2) Ovalocytes 1+ (5-14) Mentor Cells 1+ (0-2) Anion Gap 12 Estim Creat Clear Calc 74.6 Estimated GFR > 60 Random Glucose 78 Calcium 8.7 D Nasal Screen MRSA (PCR) NEGATIVE Nasal S. aureus Screen POSITIVE A Nasal MRSA/S.aureus Interp SEE NOTE Microbiology Microbiology Results: Microbiology 11/24/24 15:47 Blood Culture - Preliminary Blood - Venous No growth after 24 hours. 11/24/24 15:42 Blood Culture - Preliminary Blood - Venous No growth after 24 hours. Assessment and Plan (1) Multifocal pneumonia: Status: Acute (2) COPD with acute exacerbation: Status: Acute (3) Cough: Status: Acute Plan Patient is a 69-year-old female with a past medical history significant for carotid artery stenosis (s/p endarterectomy Jul 2024), peripheral vascular disease (s/p bypass, subclavian stenting), CKD, renal artery stenosis, prior L3?L5 decompression, hypothyroidism, obesity, anxiety, depression, recent Streptococcus bacteremia (10/23?10/30/24), frequent falls, and recent admission at [facility] for small subacute subdural hematoma and acute delirium, who presented to the ED today due to shortness of breath, cough, upper respiratory infection symptoms for the past 4 days and found to have covid, pna, sepsis Acute hypoxic respiratory failure with sepsis secondary to multifocal pneumonia, Covid 19 and copd exacerbation Cefepime and vanco for PNA supportive care for covid Bronchodilator and corticosteroid for COPD exacerbation O2 with goal of 92 to 94 % ID consult if positive blood cultures or osteomlyitis on MR (see below) follow cultures. REHABILITATION TEAM LEAD recommends regular diet, Left flank Bruise, ESR 116 CT shows erosions along the endplates of L5-S1 with prevertebral soft tissue fullness raise suspicion for osteomyelitis discitis. MR +/- contrast to rule OM/diskitis, refused MR yesterday, reattempt today check CRP Mild hyperchloremic metabolic acidosis, likely from NS, resolved with LR Acute Lactic acidosis d/t sepsis, hypoxia, albuterol, got fluid per sepsis protocol Distended gallbladder on CT, no abd pain, LFTs normal, HIDA negative CKD3, baseline Hypothyroid continue levothyroxine HTN/CAD continue home meds and adjust as needed Full code VTE prophy: lovenox Patient with acute hypoxic respiratory failure with sepsis secondary to multifocal pneumonia, COVID and acute COPD exacerbation, requiring admission for at least 2 midnight stay for IV antibiotics, steroids and monitoring. Quality Stroke Does the patient have a stroke diagnosis?: No VTE Prior VTE?: No VTE Risk Level:: Medical - moderate - high VTE Device Contraindication: Treatment Not Indicated VTE Drug Contraindication: N/A - Med Ordered
--- NOTE | 2024-11-26 10:45 | MHC.CLN ---
CONSULT PT WITH 10% SIGNIFICANT WT LOSS X6 MONTHS PT REMAINS OBESE FOR HT NO S/S MALNUTRITION AT THIS TIME DIET ADVANCED TO REGULAR RECOMMEND ADDING ENSURE BID TO INCREASE KCALS R/T ACUTE ILLNESS SUPP TO PROVIDE 700KCALS, 40G PROTEIN MONITOR PO INTAKE AND ENCOURAGE SUPPLEMENTS SEE FULL CLINICAL NUTRITION ASSESSMENT
--- NOTE | 2024-11-26 14:37 | MHC.SL.SWA ---
Speech Pathologist Impression: WFL Risk of Aspiration Due to: Dysphasia Diet Status: Patient presents with all aspects of swallow WFL, though continues to present with mild generalized weakness. Recommend UPGRADE diet to REGULAR, with THIN liquids, pills whole with liquid. MD/RD notified of recommendation, RN in person. NO further Speech/swallow service indicated, will d/c order. Please recontact if any further concerns arise. Liquid Consistency and Strategies for Safe Swallow: Liquid Intake Recommendation: Thin Liquid Intake Strategies: Unrestricted Solid Food Consistency: Dietary Recommendations: Regular Additional Modifications to Solid Foods: Oral Medication Intake: Whole with Liquid Please contact the pharmacy regarding appropriate crushable or liquid drug formulations that are available whenever modified delivery is recommended. Compensatory Strategies and Precautions to be Taken for Safe Swallow: Sitting Upright (90 deg) Liquids from Cup Liquids from Straw Small Bites and Sips Alternate Liquids/Solids Supervision While Eating and Drinking for Safe Swallow: None Needed Foods to Avoid: Swallowing Recommended Treatments: WFL/DC speech Recommendation for Speech: Comment: Patient presents with all aspects of swallow WFL, though continues to present with mild generalized weakness. Recommend UPGRADE diet to REGULAR, with THIN liquids, pills whole with liquid. MD/RD notified of recommendation, RN in person. NO further Speech/swallow service indicated, will d/c order. Please recontact if any further concerns arise. Frequency/Duration: Daily M-F Date Range for Service Req: Timeline to reassess: Agile Tester Clinican/Clinical Fellow: No Supervisory Statement: I have reviewed and agree with the student/clinical fellow's documentation: N/A Speech Language Pathologist: Cheyenne Ramires M.A., [facility] JUDGE
[2024-11-26] MEDS: ondansetron HCL 4 MG/2 ML VIAL IVPUSH (14:41)
[2024-11-26] MEDS: oxyCODONE HCl Immed Release 5 MG TABLET PO (14:47)
[2024-11-26 20:24] LABS: Vancomycin Random 9.7 mcg/mL (15-20)
--- NOTE | 2024-11-26 20:31 | HE.PHANOTE ---
Re: Eva Renal function is improving. Trough returned at 9.7, pt is sub-therapeutic. Dose increased to 1,000mg q12h, with predicted AUC 563, predicted trough 17.6. Next trough 11/27 @ 1999.
[2024-11-26] MEDS: Gabapentin 600 MG TABLET 1200 MG PO (22:44)
[2024-11-26] MEDS: vancomycin HCL 1,000 MG in 0.9 % Sodium Chloride 250 ML 270 MG IV (22:45)
[2024-11-26] MEDS: Enoxaparin Sodium 40 MG/0.4 ML SYRINGE SUBCUT (22:45)
[2024-11-27] VITALS (9 sets, daily range): BP systolic 122–169; BP diastolic 60–75; PULSE 77–90; RESP 15–24; TEMP 36.4–37.6; O2SAT 90–97
[2024-11-27] MEDS: cefEPime HCl/D5W 2 GM/50 ML PIGGYBACK IV ×3 (00:45→23:21)
[2024-11-27] MEDS: Benzonatate 100 MG CAPSULE PO ×2 (05:45→19:57)
[2024-11-27] MEDS: Levothyroxine Sodium 75 MCG TABLET PO (05:46)
[2024-11-27] MEDS: Pantoprazole Sodium 20 MG TABLET.DR 40 MG PO ×2 (05:46→17:09)
[2024-11-27 07:03] LABS: Hematocrit 22.2 % (37.0-47.0); Hemoglobin 7.6 g/dl (12.0-16.0); Mean Corpuscular HGB Conc 34.2 g/dl (31.0-35.0); Mean Corpuscular Hemoglobin 34.5 pg (27.0-33.0); Mean Corpuscular Volume 100.9 fL (80.0-98.0); Mean Platelet Volume 10.1 fL (9.4-12.3); Red Cell Distribution Width 16.6 % (11.0-16.0)
[2024-11-27 07:08] LABS: Platelet Count 92 X10*3/uL (160-400); White Blood Count 2.3 X10*3/uL (4.8-10.8)
[2024-11-27 07:25] LABS: Anion Gap 13 (12-20); Blood Urea Nitrogen 17 mg/dL (9-16); Calcium 8.3 mg/dL (8.4-10.2); Carbon Dioxide 26 mmol/L (22-29); Chloride 105 mmol/L (96-108); Creatinine Clr Calc Pharmacy 80.1; Estimated Glomerular Filt Rate > 60; Glucose Random 118 mg/dL (60-115); Potassium 3.6 mmol/L (3.3-5.1); Sodium 140 mmol/L (135-145)
[2024-11-27] MEDS: buPROPion HCl XL 150 MG TAB.ER.24H PO (08:06)
[2024-11-27] MEDS: Albuterol/Iprat 2.5/0.5MG 3 ML AMPUL.NEB INHALE ×3 (08:06→22:08)
[2024-11-27] MEDS: Thiamine HCL 100 MG TABLET PO (08:32)
[2024-11-27] MEDS: amLODIPine Besylate 2.5 MG TABLET PO (08:32)
[2024-11-27] MEDS: Sertraline HCL 100 MG TABLET PO (08:32)
[2024-11-27] MEDS: Atorvastatin Calcium 40 MG TABLET PO (08:33)
[2024-11-27] MEDS: Furosemide 20 MG TABLET PO (08:33)
[2024-11-27] MEDS: Isosorbide Mononitrate 30 MG TAB.ER.24H PO (08:34)
[2024-11-27] MEDS: 0.9 % Sodium Chloride Flush 3 ML SYRINGE IVFLUSH ×2 (08:35→17:09)
--- NOTE | 2024-11-27 10:28 | HO.PM.IMPN ---
Subjective Subjective Date of Service: 11/27/24 Interval History: f/u on sepsis, multifocal pna and covid breathing is better, remains on oxygen, pancytopenia with worsening plat, Physical Exam Vital Signs: Vital Signs: Last Vital Signs Temp 97.6 F 11/27/24 07:48 Pulse 84 11/27/24 08:07 Resp 15 11/27/24 08:07 BP 128/61 11/27/24 07:48 Pulse Ox 93 11/27/24 07:48 O2 Del Method Nasal Cannula 11/27/24 07:48 O2 Flow Rate 2 11/27/24 07:48 FiO2 33 11/24/24 17:01 BMI result Body Mass Index 25.4 Const: Other: General: AO X 3, no acute distress Resp: CTA bilateral CVS: S1,S2,RRR GI: +BS, NT, no distention Skin: No rash Neuro: motor grossly intact Psych: appropriate affect Objective Data Active Medications Acetaminophen (Acetaminophen 325 Mg Tablet) 975 mg PO Q6H PRN PRN Reason: Pain, Mild 1-3,fever,headache Last Admin: 11/25/24 10:19 Dose: 975 mg Documented By: BHARTI Albuterol/Ipratropium (Albuterol/Iprat 2.5/0.5mg 3 Ml Ampul.Neb) 3 ml INHALE RQ6H WHILE AWAKE [facility] Last Admin: 11/27/24 08:06 Dose: 3 ml Documented By: JUSTINE Amlodipine Besylate (Amlodipine Besylate 2.5 Mg Tablet) 2.5 mg PO DAILY [facility]; Protocol Last Admin: 11/27/24 08:32 Dose: 2.5 mg Documented By: ABBEY Aspirin (Aspirin Enteric Coated 81 Mg Tablet.Dr) 81 mg PO DAILY [facility] Last Admin: 11/27/24 08:32 Dose: 81 mg Documented By: ABBEY Atorvastatin Calcium (Atorvastatin Calcium 40 Mg Tablet) 40 mg PO DAILY [facility] Last Admin: 11/27/24 08:33 Dose: 40 mg Documented By: ABBEY Benzonatate (Benzonatate 100 Mg Capsule) 100 mg PO TID PRN PRN Reason: Cough Last Admin: 11/27/24 05:45 Dose: 100 mg Documented By: CLARISA Comments: cough Bupropion HCl (Bupropion Hcl Xl 150 Mg Tab.Er.24h) 150 mg PO DAILY [facility] Last Admin: 11/27/24 08:32 Dose: 150 mg Documented By: ABBEY Calcium Carbonate (Calcium Carbonate 750 Mg Tab.Chew) 750 mg PO Q4H PRN PRN Reason: Heartburn Clopidogrel Bisulfate (Clopidogrel Bisulfate 75 Mg Tablet) 75 mg PO DAILY [facility] Last Admin: 11/27/24 08:33 Dose: 75 mg Documented By: ABBEY Docusate Sodium (Docusate Sodium 100 Mg Capsule) 100 mg PO DAILY PRN PRN Reason: Constipation Enoxaparin Sodium (Enoxaparin Sodium 40 Mg/0.4 Ml Syringe) 40 mg SUBCUT Q24H [facility] Last Admin: 11/26/24 22:45 Dose: 40 mg Documented By: CLARISA Furosemide (Furosemide 20 Mg Tablet) 20 mg PO DAILY [facility]; Protocol Last Admin: 11/27/24 08:33 Dose: 20 mg Documented By: ABBEY Gabapentin (Gabapentin 600 Mg Tablet) 1,200 mg PO BEDTIME [facility] Last Admin: 11/26/24 22:44 Dose: 1,200 mg Documented By: CLARISA Cefepime HCl (Maxipime) 2 gm in 50 mls @ 100 mls/hr IV Q12H [facility] Last Infusion: 11/27/24 01:15 Dose: Infused Documented By: CLARISA Vancomycin HCl 1,000 mg/ (Sodium Chloride) 270 mls @ 270 mls/hr IV Q12H [facility] Last Infusion: 11/26/24 23:45 Dose: Infused Documented By: CLARISA Isosorbide Mononitrate (Isosorbide Mononitrate 30 Mg Tab.Er.24h) 30 mg PO DAILY [facility]; Protocol Last Admin: 11/27/24 08:34 Dose: 30 mg Documented By: ABBEY Levothyroxine Sodium (Levothyroxine Sodium 75 Mcg Tablet) 75 mcg PO DAILY@0600 [facility] Last Admin: 11/27/24 05:46 Dose: 75 mcg Documented By: CLARISA Lorazepam (Lorazepam 0.5 Mg Tablet) 0.5 mg PO BEDTIME PRN PRN Reason: anxiety Magnesium Hydroxide (Milk Of Magnesia 30 Ml Oral.Susp) 30 ml PO DAILY PRN PRN Reason: Constipation Melatonin (Melatonin 3 Mg Tablet) 6 mg PO BEDTIME PRN PRN Reason: Insomnia Methylprednisolone Sodium Succinate (Methylprednisolone Sod Succ 125 Mg Vial) 60 mg IVPUSH BID [facility] Last Admin: 11/27/24 08:34 Dose: 60 mg Documented By: ABBEY Ondansetron HCl (Ondansetron Hcl 4 Mg/2 Ml Vial) 4 mg IVPUSH Q8H PRN PRN Reason: Nausea and Vomiting Last Admin: 11/26/24 14:41 Dose: 4 mg Documented By: SWETHA Oxycodone HCl (Oxycodone Hcl Immed Release 5 Mg Tablet) 5 mg PO Q6H PRN PRN Reason: Pain, Severe (Pain Scale 7-10) Last Admin: 11/26/24 14:47 Dose: 5 mg Documented By: SWETHA Pantoprazole Sodium (Pantoprazole Sodium 20 Mg Tablet.) 40 mg PO BID@0630,1630 [facility] Last Admin: 11/27/24 05:46 Dose: 40 mg Documented By: CLARISA Pharmacy Consult (Consult Rx Vancomycin Dosing) 1 each MISCELLANE DAILY PRN PRN Reason: Consult order Senna (Sennosides 8.6 Mg Tablet) 8.6 mg PO DAILY PRN PRN Reason: Constipation Sertraline HCl (Sertraline Hcl 100 Mg Tablet) 100 mg PO DAILY [facility] Last Admin: 11/27/24 08:32 Dose: 100 mg Documented By: ABBEY Sodium Chloride (0.9 % Sodium Chloride Flush 3 Ml Syringe) [facility] Last Admin: 11/27/24 08:35 Dose: 3 ml Documented By: ABBEY Thiamine HCl (Thiamine Hcl 100 Mg Tablet) 100 mg PO DAILY [facility] Last Admin: 11/27/24 08:32 Dose: 100 mg Documented By: ABBEY Tramadol HCl (Tramadol Hcl 50 Mg Tablet) 50 mg PO Q6H PRN PRN Reason: Pain, Moderate(Pain Scale 4-6) Last Admin: 11/25/24 16:12 Dose: 50 mg Documented By: BROB Labs 11/27/24 06:55 11/27/24 06:54 Labs: Laboratory Results - last 24 hr 11/26/24 11/27/24 11/27/24 20:02 06:54 06:55 MCV 100.9 H MCH 34.5 H MCHC 34.2 RDW 16.6 H Plt Count 92 L MPV 10.1 Immature Gran % (Auto) Cancelled Neut % (Auto) Cancelled Lymph % (Auto) Cancelled [place] % (Auto) Cancelled Eos % (Auto) Cancelled Baso % (Auto) Cancelled Lymph # (Auto) Cancelled [place] # (Auto) Cancelled Eos # (Auto) Cancelled Baso # (Auto) Cancelled Abs Immat Gran (auto) Cancelled Absolute Neuts (auto) Cancelled Absolute Nucleated RBC 0.000 Nucleated RBC % (auto) 0.0 Anion Gap 13 Estim Creat Clear Calc 80.1 Estimated GFR > 60 Random Glucose 118 H Calcium 8.3 L Random Vancomycin 9.7 L Microbiology Microbiology Results: Microbiology 11/24/24 15:47 Blood Culture - Preliminary Blood - Venous No growth after 48 hours. 11/24/24 15:42 Blood Culture - Preliminary Blood - Venous No growth after 48 hours. Assessment and Plan (1) Multifocal pneumonia: Status: Acute (2) COPD with acute exacerbation: Status: Acute (3) Cough: Status: Acute Plan Patient is a 69-year-old female with a past medical history significant for carotid artery stenosis (s/p endarterectomy Jul 2024), peripheral vascular disease (s/p bypass, subclavian stenting), CKD, renal artery stenosis, prior L3?L5 decompression, hypothyroidism, obesity, anxiety, depression, recent Streptococcus bacteremia (10/23?10/30/24), frequent falls, and recent admission at [facility] for small subacute subdural hematoma and acute delirium, who presented to the ED today due to shortness of breath, cough, upper respiratory infection symptoms for the past 4 days and found to have covid, pna, sepsis Acute hypoxic respiratory failure with sepsis secondary to multifocal pneumonia, Covid 19 and copd exacerbation Cefepime and vanco for PNA supportive care for covid Bronchodilator and corticosteroid for COPD exacerbation O2 with goal of 92 to 94 % ID consult if positive blood cultures or osteomlyitis on MR (see below) follow cultures. OCCUPATIONAL HEALTH AND SAFETY MANAGER recommends regular diet, Left flank Bruise, ESR 116 CT shows erosions along the endplates of L5-S1 with prevertebral soft tissue fullness raise suspicion for osteomyelitis discitis. MR +/- contrast to rule OM/diskitis, refused MR yesterday, reattempt today hold lovenox, ASA, and plavix Mild hyperchloremic metabolic acidosis, likely from NS, resolved with LR Acute Lactic acidosis d/t sepsis, hypoxia, albuterol, got fluid per sepsis protocol Distended gallbladder on CT, no abd pain, LFTs normal, HIDA negative Pancytopenia, acute on chronic with plat trending down the last several days, could be covid related, or lovenox related. hold transfusion at this time. Hold ASA, Plavix and lovenox CKD3, baseline Hypothyroid continue levothyroxine HTN/CAD continue home meds and adjust as needed Full code VTE prophy: compression device d/t worsening pancytopenia, compression device Patient with acute hypoxic respiratory failure with sepsis secondary to multifocal pneumonia, COVID and acute COPD exacerbation, requiring admission for at least 2 midnight stay for IV antibiotics, steroids and monitoring. Quality Stroke Does the patient have a stroke diagnosis?: No VTE Prior VTE?: No VTE Risk Level:: Medical - moderate - high VTE Device Contraindication: Treatment Not Indicated VTE Drug Contraindication: N/A - Med Ordered
[2024-11-27] MEDS: vancomycin HCL 1,000 MG in 0.9 % Sodium Chloride 250 ML 270 MG IV (10:31)
[2024-11-27 11:46] LABS: Lymphocytes Absolute Manual 0.2 X10*3/uL (1.2-4.9); Lymphocytes Percent Manual 7 % (20-40); Monocytes Absolute Manual 0.1 X10*3/uL (0.1-1.2); Monocytes Percent Manual 5 % (2-11); Neutrophils Percent Manual 88 % (45-73); Platelet Estimate DECREASED (NORMAL); Platelet Morphology Comment NORMAL; RBC Morphology NOTED
[2024-11-27 11:47] LABS: Tear Drop Cells 2+ (3-5) /OIF
--- NOTE | 2024-11-27 12:17 | MHC.CLN ---
F/U PT WITH 10% SIGNIFICANT WT LOSS X6 MONTHS DIET RX: REGULAR RECEIVING ENSURE BID TO INCREASE KCALS R/T ACUTE ILLNESS SUPP TO PROVIDE 700KCALS, 40G PROTEIN MONITOR PO INTAKE AND ENCOURAGE SUPPLEMENTS
--- NOTE | 2024-11-27 12:49 | HO.WOUND ---
Wound Consult: Initial 69yr old?female admitted to [facility] [place] on 11/24/24 - See progress notes and H&P for detailed history.? Wound consult placed for Coccyx.? Patient agreeable to assessment and photo documentation.? Coccyx Etiology: Unstageable Pressure injury ?Present on Admission Measurements: 2cm x 0.2cm Wound Bed: adherent yellow slough Drainage / Odor: None noted Edges: ? well defined Marge wound: ?Red pink nonblanchable tissue No Induration, Fluctuance or Warmth noted Pain: reports pain and discomfort Goals of Treatment: ? Triad and foam dressing to allow for protection and autolytic debridement Heels assessed for intact tissue - given limited mobility at this time preventative foams heel dressing applied. Recommendations: 1. Turn and Reposition every 2 hours and as needed for patient comfort.? Use pillows or wedges to support off loading positions. 2. Off Load all bony prominences with use of pillows and heel boots if needed.? Apply Preventative foams where needed. ? 3. Monitor for incontinence and moisture control, use barrier creams when needed for prevention and treatment. 4. Provide adequate and supplemental nutrition.? 5. Order low air loss mattress. 6. When applicable maintain blood glucose levels per Providers order. Coccyx - Off Load Pressure with Q2 hr turns and use of pillows - Cleanse with PH balance spray or wipes, pat dry. ?Apply thin layer of Triad to wound bed. Do not remove all of paste between applications as this may cause further skin damage.? Cover with foam dressing to aid in off loading and protection from friction. Change every 3 days and PRN. Re-consult wound care Nurse for wound deterioration or wound changes.
--- NOTE | 2024-11-27 13:59 | MHC.CM.PN ---
EMR REVIEWED, PT W/COVID/ MULTIFOCAL PNA, PT REMAINS ON IV SOLUMEDROL/ABX AND SUPPLEMENTAL O2 AND WORSENING PLT' PER HOSPITALIST NO PLAN FOR DC AT THIS TIME, PT WILL LIKELY NEED P.T. FOR DISPO, CM WILL CONT TO FOLLOW DC NEEDS.
[2024-11-27 14:01] LABS: Band Neutrophils Percent 0 % (3-5)
[2024-11-27] MEDS: traMADoL HCL 50 MG TABLET PO (17:09)
[2024-11-27] MEDS: gadobutroL 7.5 ML VIAL IVPUSH (18:42)
--- NOTE | 2024-11-27 19:10 | PC.NURSE ---
1718 pt on 2 L nc, continues to co difficulty breathing, rn texted dr. goldman inquiring given patients copd with goal to keep oxygen sat 88-92% but her description of difficulty breathing can her oxygen be increased to 4l and titrate to her comfort, and dr. goldman agreed to plan.
[2024-11-27] MEDS: Gabapentin 600 MG TABLET 1200 MG PO (19:57)
[2024-11-27 20:41] LABS: Vancomycin Random 17.4 mcg/mL (15-20)
--- NOTE | 2024-11-27 20:49 | HE.PHANOTE ---
Re: Vanco Renal function improving. Trough returned at 17.4. Pt is therapeutic, but running 3 mg/L higher than predicted trough. Dose reduced to 750mg q12h with predicted AUC 435, predicted trough 13.6 (in anticipation that pt's trough is running higher). Next trough 11/28 @ 1999.
[2024-11-27] MEDS: vancomycin HCL 750 MG in 0.9 % Sodium Chloride 250 ML 265 MG IV (22:07)
[2024-11-27] MEDS: oxyCODONE HCl Immed Release 5 MG TABLET PO (22:12)
[2024-11-27] MEDS: LORazepam 0.5 MG TABLET PO (22:13)
[2024-11-27] MEDS: guaiFENesin DM 600/30 1 TAB TAB.ER.12H PO (22:14)
[2024-11-28] VITALS (15 sets, daily range): BP systolic 123–179; BP diastolic 58–79; PULSE 69–87; RESP 16–20; TEMP 36.6–36.9; O2SAT 92–95
[2024-11-28] MEDS: 0.9 % Sodium Chloride Flush 3 ML SYRINGE IVFLUSH ×2 (03:48→08:16)
[2024-11-28] MEDS: oxyCODONE HCl Immed Release 5 MG TABLET PO ×3 (05:40→23:24)
[2024-11-28] MEDS: Pantoprazole Sodium 20 MG TABLET.DR 40 MG PO ×2 (05:40→16:55)
[2024-11-28] MEDS: Levothyroxine Sodium 75 MCG TABLET PO (05:40)
[2024-11-28] MEDS: Albuterol/Iprat 2.5/0.5MG 3 ML AMPUL.NEB INHALE ×3 (07:30→19:00)
[2024-11-28] MEDS: amLODIPine Besylate 2.5 MG TABLET PO (08:14)
[2024-11-28] MEDS: Atorvastatin Calcium 40 MG TABLET PO (08:14)
[2024-11-28] MEDS: buPROPion HCl XL 150 MG TAB.ER.24H PO (08:14)
[2024-11-28] MEDS: Furosemide 20 MG TABLET PO (08:14)
[2024-11-28] MEDS: Aspirin Enteric Coated 81 MG TABLET.DR PO (08:14)
[2024-11-28] MEDS: Thiamine HCL 100 MG TABLET PO (08:14)
[2024-11-28] MEDS: Sertraline HCL 100 MG TABLET PO (08:15)
[2024-11-28] MEDS: Isosorbide Mononitrate 30 MG TAB.ER.24H PO (08:15)
[2024-11-28 08:22] LABS: Hemoglobin 7.2 g/dl (12.0-16.0); Mean Corpuscular HGB Conc 34.8 g/dl (31.0-35.0); Mean Corpuscular Hemoglobin 34.6 pg (27.0-33.0); Mean Corpuscular Volume 99.5 fL (80.0-98.0); Mean Platelet Volume 10.5 fL (9.4-12.3); Red Blood Count 2.08 X10*6/uL (4.20-5.50); Red Cell Distribution Width 15.9 % (11.0-16.0)
[2024-11-28 08:31] LABS: Anion Gap 13 (12-20); Blood Urea Nitrogen 15 mg/dL (9-16); Calcium 8.2 mg/dL (8.4-10.2); Carbon Dioxide 26 mmol/L (22-29); Chloride 103 mmol/L (96-108); Creatinine Clr Calc Pharmacy 81.3; Estimated Glomerular Filt Rate > 60; Glucose Random 100 mg/dL (60-115); Potassium 2.9 mmol/L (3.3-5.1); Sodium 139 mmol/L (135-145)
[2024-11-28 08:39] LABS: White Blood Count 1.7 X10*3/uL (4.8-10.8)
[2024-11-28 08:40] LABS: Hematocrit 20.7 % (37.0-47.0); NRBC Pct Auto 2.4 /100WBC (0.0-0.2); Platelet Count 86 X10*3/uL (160-400)
--- NOTE | 2024-11-28 08:48 | HO.PM.IMPN ---
Subjective Subjective Date of Service: 11/28/24 Interval History: f/u on sepsis, multifocal pna and covid breathing is better, remains on oxygen MRI of spine show diskitis, no abscess Physical Exam Vital Signs: Vital Signs: Last Vital Signs Temp 98.2 F 11/28/24 07:03 Pulse 72 11/28/24 07:30 Resp 16 11/28/24 07:30 BP 146/68 H 11/28/24 08:00 Pulse Ox 95 11/28/24 07:03 O2 Del Method Nasal Cannula 11/28/24 07:03 O2 Flow Rate 4 11/28/24 07:03 FiO2 33 11/24/24 17:01 BMI result Body Mass Index 25.4 Const: Other: General: AO X 3, no acute distress Resp: CTA bilateral CVS: S1,S2,RRR GI: +BS, NT, no distention Skin: No rash Neuro: motor grossly intact, no ofocal neuro deficit Psych: appropriate affect Objective Data Active Medications Acetaminophen (Acetaminophen 325 Mg Tablet) 975 mg PO Q6H PRN PRN Reason: Pain, Mild 1-3,fever,headache Last Admin: 11/25/24 10:19 Dose: 975 mg Documented By: BHARTI Albuterol/Ipratropium (Albuterol/Iprat 2.5/0.5mg 3 Ml Ampul.Neb) 3 ml INHALE RQ6H WHILE AWAKE [facility] Last Admin: 11/28/24 07:30 Dose: 3 ml Documented By: JASMINA Amlodipine Besylate (Amlodipine Besylate 2.5 Mg Tablet) 2.5 mg PO DAILY [facility]; Protocol Last Admin: 11/28/24 08:14 Dose: 2.5 mg Documented By: CHRISTINA Aspirin (Aspirin Enteric Coated 81 Mg Tablet.) 81 mg PO DAILY [facility] Last Admin: 11/28/24 08:14 Dose: 81 mg Documented By: CHRISTINA Atorvastatin Calcium (Atorvastatin Calcium 40 Mg Tablet) 40 mg PO DAILY [facility] Last Admin: 11/28/24 08:14 Dose: 40 mg Documented By: CHRISTINA Benzonatate (Benzonatate 100 Mg Capsule) 100 mg PO TID PRN PRN Reason: Cough Last Admin: 11/27/24 19:57 Dose: 100 mg Documented By: CLARISA Bupropion HCl (Bupropion Hcl Xl 150 Mg Tab.Er.24h) 150 mg PO DAILY [facility] Last Admin: 11/28/24 08:14 Dose: 150 mg Documented By: CHRISTINA Calcium Carbonate (Calcium Carbonate 750 Mg Tab.Chew) 750 mg PO Q4H PRN PRN Reason: Heartburn Clopidogrel Bisulfate (Clopidogrel Bisulfate 75 Mg Tablet) 75 mg PO DAILY [facility] Last Admin: 11/28/24 08:16 Dose: Not Given Documented By: CHRISTINA Non-Admin Reason: Physician Approved Docusate Sodium (Docusate Sodium 100 Mg Capsule) 100 mg PO DAILY PRN PRN Reason: Constipation Furosemide (Furosemide 20 Mg Tablet) 20 mg PO DAILY [facility]; Protocol Last Admin: 11/28/24 08:14 Dose: 20 mg Documented By: CHRISTINA Gabapentin (Gabapentin 600 Mg Tablet) 1,200 mg PO BEDTIME [facility] Last Admin: 11/27/24 19:57 Dose: 1,200 mg Documented By: CLARISA Cefepime HCl (Maxipime) 2 gm in 50 mls @ 100 mls/hr IV Q12H [facility] Last Infusion: 11/27/24 23:57 Dose: Infused Documented By: CLARISA Vancomycin HCl 750 mg/ Sodium (Chloride) 265 mls @ 265 mls/hr IV Q12H [facility] Last Infusion: 11/27/24 23:07 Dose: Infused Documented By: CLARISA Isosorbide Mononitrate (Isosorbide Mononitrate 30 Mg Tab.Er.24h) 30 mg PO DAILY [facility]; Protocol Last Admin: 11/28/24 08:15 Dose: 30 mg Documented By: CHRISTINA Levothyroxine Sodium (Levothyroxine Sodium 75 Mcg Tablet) 75 mcg PO DAILY@0600 [facility] Last Admin: 11/28/24 05:40 Dose: 75 mcg Documented By: CLARISA Lorazepam (Lorazepam 0.5 Mg Tablet) 0.5 mg PO BEDTIME PRN PRN Reason: anxiety Last Admin: 11/27/24 22:13 Dose: 0.5 mg Documented By: CLARISA Comments: anxiety Magnesium Hydroxide (Milk Of Magnesia 30 Ml Oral.Susp) 30 ml PO DAILY PRN PRN Reason: Constipation Melatonin (Melatonin 3 Mg Tablet) 6 mg PO BEDTIME PRN PRN Reason: Insomnia Methylprednisolone Sodium Succinate (Methylprednisolone Sod Succ 125 Mg Vial) 60 mg IVPUSH BID [facility] Last Admin: 11/28/24 08:15 Dose: 60 mg Documented By: CHRISTINA Ondansetron HCl (Ondansetron Hcl 4 Mg/2 Ml Vial) 4 mg IVPUSH Q8H PRN PRN Reason: Nausea and Vomiting Last Admin: 11/26/24 14:41 Dose: 4 mg Documented By: SWETHA Oxycodone HCl (Oxycodone Hcl Immed Release 5 Mg Tablet) 5 mg PO Q6H PRN PRN Reason: Pain, Severe (Pain Scale 7-10) Last Admin: 11/28/24 05:40 Dose: 5 mg Documented By: CLARISA Pantoprazole Sodium (Pantoprazole Sodium 20 Mg Tablet.Dr) 40 mg PO BID@0630,1630 [facility] Last Admin: 11/28/24 05:40 Dose: 40 mg Documented By: CLARISA Pharmacy Consult (Consult Rx Vancomycin Dosing) 1 each MISCELLANE DAILY PRN PRN Reason: Consult order Potassium Chloride (Potassium Chloride Er 20 Meq Tab.Er.Prt) 40 meq PO BID [facility] Stop: 11/29/24 09:01 Senna (Sennosides 8.6 Mg Tablet) 8.6 mg PO DAILY PRN PRN Reason: Constipation Sertraline HCl (Sertraline Hcl 100 Mg Tablet) 100 mg PO DAILY [facility] Last Admin: 11/28/24 08:15 Dose: 100 mg Documented By: CHRISTINA Sodium Chloride (0.9 % Sodium Chloride Flush 3 Ml Syringe) 3 ml IVFLUSH [facility] Last Admin: 11/28/24 08:16 Dose: 3 ml Documented By: CHRISTINA Thiamine HCl (Thiamine Hcl 100 Mg Tablet) 100 mg PO DAILY [facility] Last Admin: 11/28/24 08:14 Dose: 100 mg Documented By: CHRISTINA Tramadol HCl (Tramadol Hcl 50 Mg Tablet) 50 mg PO Q6H PRN PRN Reason: Pain, Moderate(Pain Scale 4-6) Last Admin: 11/27/24 17:09 Dose: 50 mg Documented By: ABBEY Labs 11/29/24 06:24 11/29/24 06:24 Labs: Laboratory Results - last 24 hr 0611/27/24 11/28/24 06:55 20:10 06:41 MCV 99.5 H MCH 34.6 H MCHC 34.8 RDW 15.9 Plt Count 86 L MPV 10.5 Absolute Nucleated RBC 0.040 H Nucleated RBC % (auto) 2.4 H Neutrophils % (Manual) 88 H Band Neutrophils % 0 L Lymphocytes % (Manual) 7 L Monocytes % (Manual) 5 Abs Neuts (Manual) 2.0 Lymphocytes # (Manual) 0.2 L Monocytes # (Manual) 0.1 Platelet Estimate DECREASED Plt Morphology Comment NORMAL RBC Morphology NOTED Tear Drop Cells 2+ (3-5) Anion Gap 13 Estim Creat Clear Calc 81.3 Estimated GFR > 60 Random Glucose 100 Calcium 8.2 L Random Vancomycin 17.4 Assessment and Plan (1) Multifocal pneumonia: Status: Acute (2) COPD with acute exacerbation: Status: Acute (3) Cough: Status: Acute Plan Patient is a 69-year-old female with a past medical history significant for carotid artery stenosis (s/p endarterectomy Jul 2024), peripheral vascular disease (s/p bypass, subclavian stenting), CKD, renal artery stenosis, prior L3?L5 decompression, hypothyroidism, obesity, anxiety, depression, recent Streptococcus bacteremia (10/23?10/30/24), frequent falls, and recent admission at [facility] for small subacute subdural hematoma and acute delirium, who presented to the ED today due to shortness of breath, cough, upper respiratory infection symptoms for the past 4 days and found to have covid, pna, sepsis Acute hypoxic respiratory failure with sepsis secondary to multifocal pneumonia, Covid 19 and copd exacerbation Cefepime and vanco for PNA supportive care for covid Bronchodilator and corticosteroid for COPD exacerbation O2 with goal of 92 to 94 % follow cultures. [employer] recommends regular diet, Left flank Bruise, ESR [address] CT shows erosions along the endplates of L5-S1 with prevertebral soft tissue fullness raise suspicion for osteomyelitis discitis. MRI confirmed osteomyelitis/discitis at L5 and S1 . Continue vanco and Cefepime hold lovenox, ASA, and plavix Mild hyperchloremic metabolic acidosis, likely from NS, resolved with LR hypokalemia, oral replacment, check mag Acute Lactic acidosis d/t sepsis, hypoxia, albuterol, got fluid per sepsis protocol Distended gallbladder on CT, no abd pain, LFTs normal, HIDA negative Pancytopenia, acute on chronic with plat is better but hemoglobin significantly down to 20 now check occult blood, hemolysis work up transfuse 2 units, hold ASA, plavix, lovneox CKD3, baseline Hypothyroid continue levothyroxine HTN/CAD continue home meds and adjust as needed Full code VTE prophy: compression device d/t worsening pancytopenia, compression device Patient with acute hypoxic respiratory failure with sepsis secondary to multifocal pneumonia, COVID and acute COPD exacerbation, requiring admission for at least 2 midnight stay for IV antibiotics, steroids and monitoring. discussed care with daughter over the phone Quality Stroke Does the patient have a stroke diagnosis?: No VTE Prior VTE?: No VTE Risk Level:: Medical - moderate - high VTE Device Contraindication: Treatment Not Indicated VTE Drug Contraindication: N/A - Med Ordered
[2024-11-28 09:25] LABS: Magnesium 1.9 mg/dL (1.6-2.6)
[2024-11-28] MEDS: traMADoL HCL 50 MG TABLET PO ×2 (09:27→20:34)
[2024-11-28] MEDS: Benzonatate 100 MG CAPSULE PO ×2 (09:27→14:23)
[2024-11-28] MEDS: Potassium Chloride ER 20 MEQ TAB.ER.PRT 40 MEQ PO ×2 (09:27→20:34)
[2024-11-28] MEDS: vancomycin HCL 750 MG in 0.9 % Sodium Chloride 250 ML 265 MG IV (09:29)
[2024-11-28] MEDS: cefEPime HCl/D5W 2 GM/50 ML PIGGYBACK IV (11:52)
[2024-11-28 20:33] LABS: Vancomycin Random 14.7 mcg/mL (15-20)
[2024-11-28] MEDS: Gabapentin 600 MG TABLET 1200 MG PO (20:34)
[2024-11-28] MEDS: Acetaminophen 325 MG TABLET 975 MG PO (20:35)
[2024-11-28] MEDS: guaiFENesin DM 600/30 1 TAB TAB.ER.12H PO (23:24)
[2024-11-28] MEDS: LORazepam 0.5 MG TABLET PO (23:25)
[2024-11-28] MEDS: Docusate Sodium 100 MG CAPSULE PO (23:30)
[2024-11-29] VITALS (17 sets, daily range): BP systolic 127–195; BP diastolic 55–86; PULSE 65–96; RESP 14–28; TEMP 36.2–37.2; O2SAT 80–96
[2024-11-29] MEDS: amLODIPine Besylate 2.5 MG TABLET PO (02:54)
[2024-11-29] MEDS: cefEPime HCl/D5W 2 GM/50 ML PIGGYBACK IV ×3 (02:57→23:21)
[2024-11-29] MEDS: Acetaminophen 325 MG TABLET 975 MG PO ×2 (02:58→18:11)
[2024-11-29] MEDS: vancomycin HCL 750 MG in 0.9 % Sodium Chloride 250 ML 265 MG IV ×2 (04:03→16:13)
[2024-11-29] MEDS: Levothyroxine Sodium 75 MCG TABLET PO (05:52)
[2024-11-29] MEDS: Pantoprazole Sodium 20 MG TABLET.DR 40 MG PO ×2 (05:52→16:13)
[2024-11-29 07:04] LABS: Hematocrit 32.4 % (37.0-47.0); Hemoglobin 11.3 g/dl (12.0-16.0); Mean Corpuscular HGB Conc 34.9 g/dl (31.0-35.0); Mean Corpuscular Hemoglobin 33.8 pg (27.0-33.0); Mean Platelet Volume 10.3 fL (9.4-12.3); NRBC Pct Auto 0.5 /100WBC (0.0-0.2); Red Blood Count 3.34 X10*6/uL (4.20-5.50); Red Cell Distribution Width 17.2 % (11.0-16.0); White Blood Count 3.9 X10*3/uL (4.8-10.8)
[2024-11-29 07:05] LABS: Platelet Count 81 X10*3/uL (160-400)
[2024-11-29 07:16] LABS: Estimated Glomerular Filt Rate > 60
[2024-11-29] MEDS: Albuterol/Iprat 2.5/0.5MG 3 ML AMPUL.NEB INHALE ×3 (07:43→20:43)
[2024-11-29] MEDS: Furosemide 20 MG TABLET PO (08:41)
[2024-11-29] MEDS: 0.9 % Sodium Chloride Flush 3 ML SYRINGE IVFLUSH ×3 (08:41→20:46)
[2024-11-29] MEDS: Potassium Chloride ER 20 MEQ TAB.ER.PRT 40 MEQ PO (08:42)
[2024-11-29] MEDS: Atorvastatin Calcium 40 MG TABLET PO (08:42)
[2024-11-29] MEDS: buPROPion HCl XL 150 MG TAB.ER.24H PO (08:43)
[2024-11-29] MEDS: Isosorbide Mononitrate 30 MG TAB.ER.24H PO (08:43)
[2024-11-29] MEDS: Sennosides 8.6 MG TABLET PO (08:43)
[2024-11-29] MEDS: Sertraline HCL 100 MG TABLET PO (08:43)
[2024-11-29] MEDS: oxyCODONE HCl Immed Release 5 MG TABLET PO ×3 (08:43→23:21)
[2024-11-29] MEDS: Benzonatate 100 MG CAPSULE PO ×2 (08:43→18:11)
[2024-11-29] MEDS: Thiamine HCL 100 MG TABLET PO (08:43)
--- NOTE | 2024-11-29 08:46 | P.PNIM_ITS ---
Subjective Subjective Date of Service: 11/29/24 Interval History: f/u on sepsis, multifocal pna and covid breathing is better, remains on oxygen MRI of spine show diskitis, no abscess remains on oxygen, H/H improved with transfusion Physical Exam 2 Vital Signs: Vital Signs: Last Vital Signs Temp 97.2 F 11/29/24 08:00 Pulse 71 11/29/24 08:00 Resp 20 11/29/24 08:00 BP 179/62 H 11/29/24 08:00 Pulse Ox 89 L 11/29/24 08:00 O2 Del Method Room Air 11/29/24 08:00 O2 Flow Rate 3 11/29/24 02:47 FiO2 33 11/24/24 17:01 BMI result Body Mass Index 25.4 Const: Other: General: AO X 3, no acute distress Resp: CTA bilateral CVS: S1,S2,RRR GI: +BS, NT, no distention Skin: No rash Neuro: motor grossly intact, no ofocal neuro deficit Psych: appropriate affect Objective Data Active Medications Acetaminophen (Acetaminophen 325 Mg Tablet) 975 mg PO Q6H PRN PRN Reason: Pain, Mild 1-3,fever,headache Last Admin: 11/29/24 02:58 Dose: 975 mg Documented By: CLARISA Albuterol/Ipratropium (Albuterol/Iprat 2.5/0.5mg 3 Ml Ampul.Neb) 3 ml INHALE RQ6H WHILE AWAKE [facility] Last Admin: 11/29/24 07:43 Dose: 3 ml Documented By: JOHN Amlodipine Besylate (Amlodipine Besylate 2.5 Mg Tablet) 2.5 mg PO DAILY [facility]; Protocol Last Admin: 11/29/24 02:54 Dose: 2.5 mg Documented By: CLARISA Comments: Ordered to give the dose now per Dr. Lima Atorvastatin Calcium (Atorvastatin Calcium 40 Mg Tablet) 40 mg PO DAILY [facility] Last Admin: 11/28/24 08:14 Dose: 40 mg Documented By: CHRISTINA Benzonatate (Benzonatate 100 Mg Capsule) 100 mg PO TID PRN PRN Reason: Cough Last Admin: 11/28/24 14:23 Dose: 100 mg Documented By: CHRISTINA Bupropion HCl (Bupropion Hcl Xl 150 Mg Tab.Er.24h) 150 mg PO DAILY [facility] Last Admin: 11/28/24 08:14 Dose: 150 mg Documented By: CHRISTINA Calcium Carbonate (Calcium Carbonate 750 Mg Tab.Chew) 750 mg PO Q4H PRN PRN Reason: Heartburn Docusate Sodium (Docusate Sodium 100 Mg Capsule) 100 mg PO DAILY PRN PRN Reason: Constipation Last Admin: 11/28/24 23:30 Dose: 100 mg Documented By: CLARISA Comments: pt requested Furosemide (Furosemide 20 Mg Tablet) 20 mg PO DAILY [facility]; Protocol Last Admin: 11/28/24 08:14 Dose: 20 mg Documented By: CHRISTINA Gabapentin (Gabapentin 600 Mg Tablet) 1,200 mg PO BEDTIME [facility] Last Admin: 11/28/24 20:34 Dose: 1,200 mg Documented By: CLARISA Guaifenesin/Dextromethorphan (Guaifenesin Dm 600/30 1 Tab Tab.Er.12h) 1 tab PO BID PRN PRN Reason: Cough Last Admin: 11/28/24 23:24 Dose: 1 tab Documented By: CLARISA Comments: requested for cough Cefepime HCl (Maxipime) 2 gm in 50 mls @ 100 mls/hr IV Q12H [facility] Last Infusion: 11/29/24 04:11 Dose: Infused Documented By: CHRIS Vancomycin HCl 750 mg/ Sodium (Chloride) 265 mls @ 265 mls/hr IV Q12H [facility] Isosorbide Mononitrate (Isosorbide Mononitrate 30 Mg Tab.Er.24h) 30 mg PO DAILY [facility]; Protocol Last Admin: 11/28/24 08:15 Dose: 30 mg Documented By: CHRISTINA Levothyroxine Sodium (Levothyroxine Sodium 75 Mcg Tablet) 75 mcg PO DAILY@0600 [facility] Last Admin: 11/29/24 05:52 Dose: 75 mcg Documented By: CLARISA Lorazepam (Lorazepam 0.5 Mg Tablet) 0.5 mg PO BEDTIME PRN PRN Reason: anxiety Last Admin: 11/28/24 23:25 Dose: 0.5 mg Documented By: CLARISA Comments: anxiety Magnesium Hydroxide (Milk Of Magnesia 30 Ml Oral.Susp) 30 ml PO DAILY PRN PRN Reason: Constipation Melatonin (Melatonin 3 Mg Tablet) 6 mg PO BEDTIME PRN PRN Reason: Insomnia Methylprednisolone Sodium Succinate (Methylprednisolone Sod Succ 125 Mg Vial) 60 mg IVPUSH BID [facility] Last Admin: 11/28/24 20:35 Dose: 60 mg Documented By: CLARISA Ondansetron HCl (Ondansetron Hcl 4 Mg/2 Ml Vial) 4 mg IVPUSH Q8H PRN PRN Reason: Nausea and Vomiting Last Admin: 11/26/24 14:41 Dose: 4 mg Documented By: SWETHA Oxycodone HCl (Oxycodone Hcl Immed Release 5 Mg Tablet) 5 mg PO Q6H PRN PRN Reason: Pain, Severe (Pain Scale 7-10) Last Admin: 11/28/24 23:24 Dose: 5 mg Documented By: CLARISA Pantoprazole Sodium (Pantoprazole Sodium 20 Mg Tablet.Dr) 40 mg PO BID@0630,1630 [facility] Last Admin: 11/29/24 05:52 Dose: 40 mg Documented By: CLARISA Pharmacy Consult (Consult Rx Vancomycin Dosing) 1 each MISCELLANE DAILY PRN PRN Reason: Consult order Potassium Chloride (Potassium Chloride Er 20 Meq Tab.Er.Prt) 40 meq PO BID [facility] Stop: 11/29/24 09:01 Last Admin: 11/28/24 20:34 Dose: 40 meq Documented By: CLARISA Senna (Sennosides 8.6 Mg Tablet) 8.6 mg PO DAILY PRN PRN Reason: Constipation Sertraline HCl (Sertraline Hcl 100 Mg Tablet) 100 mg PO DAILY [facility] Last Admin: 11/28/24 08:15 Dose: 100 mg Documented By: CHRISTINA Sodium Chloride (0.9 % Sodium Chloride Flush 3 Ml Syringe) 3 ml IVFLUSH QSHIFT [facility] Last Admin: 11/29/24 01:02 Dose: Not Given Documented By: CLARISA Non-Admin Reason: IV Running Thiamine HCl (Thiamine Hcl 100 Mg Tablet) 100 mg PO DAILY [facility] Last Admin: 11/28/24 08:14 Dose: 100 mg Documented By: CHRISTINA Tramadol HCl (Tramadol Hcl 50 Mg Tablet) 50 mg PO Q6H PRN PRN Reason: Pain, Moderate(Pain Scale 4-6) Last Admin: 11/28/24 20:34 Dose: 50 mg Documented By: CLARISA Labs 11/29/24 06:24 11/29/24 06:24 Labs: Laboratory Results - last 24 hr 11/28/24 11/28/24 11/28/24 06:41 12:31 19:55 MCV MCH MCHC RDW Plt Count MPV Absolute Nucleated RBC Nucleated RBC % (auto) Estim Creat Clear Calc Estimated GFR Magnesium 1.9 Random Vancomycin 14.7 L Blood Type B Negative Antibody Screen NEGATIVE Crossmatch See Detail 11/29/24 06:24 MCV 97.0 MCH 33.8 H MCHC 34.9 RDW 17.2 H Plt Count 81 L MPV 10.3 Absolute Nucleated RBC 0.020 H Nucleated RBC % (auto) 0.5 H Estim Creat Clear Calc 85.0 Estimated GFR > 60 Magnesium Random Vancomycin Blood Type Antibody Screen Crossmatch Assessment and Plan (1) Multifocal pneumonia: Status: Acute (2) COPD with acute exacerbation: Status: Acute (3) Cough: Status: Acute Plan Patient is a 69-year-old female with a past medical history significant for carotid artery stenosis (s/p endarterectomy Jul 2024), peripheral vascular disease (s/p bypass, subclavian stenting), CKD, renal artery stenosis, prior L3?L5 decompression, hypothyroidism, obesity, anxiety, depression, recent Streptococcus bacteremia (10/23?10/30/24), frequent falls, and recent admission at [facility] for small subacute subdural hematoma and acute delirium, who presented to the ED today due to shortness of breath, cough, upper respiratory infection symptoms for the past 4 days and found to have covid, pna, sepsis Acute hypoxic respiratory failure with sepsis secondary to multifocal pneumonia, Covid 19 and copd exacerbation, clinically improving continue Cefepime and vanco for PNA supportive care and steroid for covid for covid Bronchodilator and corticosteroid for COPD exacerbation O2 with goal of 92 to 94 % follow cultures. [employer] recommends regular diet, Left flank Bruise, ESR 116 CT shows erosions along the endplates of L5-S1 with prevertebral soft tissue fullness raise suspicion for osteomyelitis discitis. MRI confirmed osteomyelitis/discitis at L5 and S1 . Continue vanco and Cefepime hold lovenox, ASA, and plavix Mild hyperchloremic metabolic acidosis, likely from NS, resolved with LR hypokalemia, replaced repeat labs Acute Lactic acidosis d/t sepsis, hypoxia, albuterol, got fluid per sepsis protocol Distended gallbladder on CT, no abd pain, LFTs normal, HIDA negative Pancytopenia, acute on chronic with plat is better but hemoglobin significantly down to 20 on 11/28 check occult blood, hemolysis work up if worsening transfuse 2 units, hold ASA, plavix, lovneox Plat has been on low in the past, possible ITP, consider heme consult CKD3, baseline Hypothyroid continue levothyroxine HTN/CAD continue home meds and adjust as needed Full code VTE prophy: compression device d/t worsening pancytopenia, compression device Patient with acute hypoxic respiratory failure with sepsis secondary to multifocal pneumonia, COVID and acute COPD exacerbation, requiring admission for at least 2 midnight stay for IV antibiotics, steroids and monitoring. discussed care with daughter over the phone Quality Stroke Does the patient have a stroke diagnosis?: No VTE Prior VTE?: No VTE Risk Level:: Medical - moderate - high VTE Device Contraindication: Treatment Not Indicated VTE Drug Contraindication: N/A - Med Ordered
[2024-11-29 09:22] LABS: Alanine Aminotransferase 409 U/L (0-31); Albumin Level 2.7 g/dL (3.5-5.0); Alkaline Phosphatase 197 U/L (39-117); Anion Gap 12 (12-20); Aspartate Amino Transferase 449 U/L (5-31); Bilirubin Direct 2.3 mg/dL (0.0-0.5); Bilirubin Total 3.1 mg/dL (0.0-1.0); Carbon Dioxide 26 mmol/L (22-29); Chloride 106 mmol/L (96-108); Lactate Dehydrogenase 410 U/L (122-220); Magnesium 1.9 mg/dL (1.6-2.6); Potassium 3.7 mmol/L (3.3-5.1); Sodium 140 mmol/L (135-145); Total Protein 6.3 g/dL (6.5-8.0)
[2024-11-29 09:49] LABS: Haptoglobin 310 mg/dL (63-273)
[2024-11-29] MEDS: traMADoL HCL 50 MG TABLET PO ×2 (12:27→20:59)
[2024-11-29 15:06] LABS: Vancomycin Random 14.8 mcg/mL (15-20)
[2024-11-29] MEDS: guaiFENesin DM 600/30 1 TAB TAB.ER.12H PO (16:13)
[2024-11-29] MEDS: ondansetron HCL 4 MG/2 ML VIAL IVPUSH (18:11)
[2024-11-29] MEDS: Gabapentin 600 MG TABLET 1200 MG PO (20:45)
[2024-11-29] MEDS: LORazepam 0.5 MG TABLET PO (20:59)
[2024-11-30] VITALS (7 sets, daily range): BP systolic 131–153; BP diastolic 59–67; PULSE 82–94; RESP 20–24; TEMP 36.1–37.1; O2SAT 90–97
[2024-11-30] MEDS: traMADoL HCL 50 MG TABLET PO ×3 (05:04→20:59)
[2024-11-30] MEDS: Pantoprazole Sodium 20 MG TABLET.DR 40 MG PO ×2 (05:05→15:56)
[2024-11-30] MEDS: Levothyroxine Sodium 75 MCG TABLET PO (05:05)
[2024-11-30] MEDS: vancomycin HCL 750 MG in 0.9 % Sodium Chloride 250 ML 265 MG IV ×2 (05:05→15:56)
[2024-11-30] MEDS: methylPREDNISolone Sod Succ 40 MG/ML VIAL IVPUSH (07:48)
[2024-11-30] MEDS: amLODIPine Besylate 2.5 MG TABLET PO (07:48)
[2024-11-30] MEDS: Thiamine HCL 100 MG TABLET PO (07:49)
[2024-11-30] MEDS: buPROPion HCl XL 150 MG TAB.ER.24H PO (07:49)
[2024-11-30] MEDS: Furosemide 20 MG TABLET PO (07:49)
[2024-11-30] MEDS: Sennosides 8.6 MG TABLET PO (07:49)
[2024-11-30] MEDS: Atorvastatin Calcium 40 MG TABLET PO (07:49)
[2024-11-30] MEDS: 0.9 % Sodium Chloride Flush 3 ML SYRINGE IVFLUSH ×3 (07:50→20:59)
[2024-11-30] MEDS: Sertraline HCL 100 MG TABLET PO (07:50)
[2024-11-30] MEDS: Isosorbide Mononitrate 30 MG TAB.ER.24H PO (07:50)
[2024-11-30] MEDS: oxyCODONE HCl Immed Release 5 MG TABLET PO ×2 (07:50→13:54)
[2024-11-30 07:51] LABS: Hematocrit 33.6 % (37.0-47.0); Hemoglobin 11.4 g/dl (12.0-16.0); Mean Corpuscular HGB Conc 33.9 g/dl (31.0-35.0); Mean Corpuscular Hemoglobin 33.3 pg (27.0-33.0); Mean Corpuscular Volume 98.2 fL (80.0-98.0); Red Blood Count 3.42 X10*6/uL (4.20-5.50); Red Cell Distribution Width 16.6 % (11.0-16.0); White Blood Count 4.3 X10*3/uL (4.8-10.8)
[2024-11-30 07:53] LABS: Platelet Count 71 X10*3/uL (160-400)
[2024-11-30] MEDS: Albuterol/Iprat 2.5/0.5MG 3 ML AMPUL.NEB INHALE ×2 (08:00→13:45)
[2024-11-30 08:03] LABS: Creatinine Clr Calc Pharmacy 81.3; Estimated Glomerular Filt Rate > 60
--- NOTE | 2024-11-30 08:56 | P.PNIM_ITS ---
Subjective Subjective Date of Service: 11/30/24 Interval History: f/u on sepsis, multifocal pna and covid breathing is better, remains on O2 and not weaning well MRI of spine show diskitis, no abscess Physical Exam 2 Vital Signs: Vital Signs: Last Vital Signs Temp 97.0 F 11/30/24 07:41 Pulse 82 11/30/24 08:00 Resp 20 11/30/24 08:00 BP 140/59 H 11/30/24 07:41 Pulse Ox 90 L 11/30/24 07:41 O2 Del Method Nasal Cannula 11/30/24 07:41 O2 Flow Rate 6 11/30/24 07:41 FiO2 33 11/24/24 17:01 BMI result Body Mass Index 25.4 Const: Other: General: AO X 3, no acute distress Resp: CTA bilateral CVS: S1,S2,RRR GI: +BS, NT, no distention Skin: No rash Neuro: motor grossly intact, no ofocal neuro deficit Psych: appropriate affect Objective Data Active Medications Acetaminophen (Acetaminophen 325 Mg Tablet) 975 mg PO Q6H PRN PRN Reason: Pain, Mild 1-3,fever,headache Last Admin: 11/29/24 18:11 Dose: 975 mg Documented By: JOSIE Albuterol/Ipratropium (Albuterol/Iprat 2.5/0.5mg 3 Ml Ampul.Neb) 3 ml INHALE RQ6H WHILE AWAKE [facility] Last Admin: 11/30/24 08:00 Dose: 3 ml Documented By: JASMINA Amlodipine Besylate (Amlodipine Besylate 2.5 Mg Tablet) 2.5 mg PO DAILY [facility]; Protocol Last Admin: 11/30/24 07:48 Dose: 2.5 mg Documented By: JERED Atorvastatin Calcium (Atorvastatin Calcium 40 Mg Tablet) 40 mg PO DAILY [facility] Last Admin: 11/30/24 07:49 Dose: 40 mg Documented By: JERED Benzonatate (Benzonatate 100 Mg Capsule) 100 mg PO TID PRN PRN Reason: Cough Last Admin: 11/29/24 18:11 Dose: 100 mg Documented By: JOSIE Bupropion HCl (Bupropion Hcl Xl 150 Mg Tab.Er.24h) 150 mg PO DAILY [facility] Last Admin: 11/30/24 07:49 Dose: 150 mg Documented By: JERED Calcium Carbonate (Calcium Carbonate 750 Mg Tab.Chew) 750 mg PO Q4H PRN PRN Reason: Heartburn Docusate Sodium (Docusate Sodium 100 Mg Capsule) 100 mg PO DAILY PRN PRN Reason: Constipation Last Admin: 11/28/24 23:30 Dose: 100 mg Documented By: CLARISA Comments: pt requested Furosemide (Furosemide 20 Mg Tablet) 20 mg PO DAILY [facility]; Protocol Last Admin: 11/30/24 07:49 Dose: 20 mg Documented By: JERED Gabapentin (Gabapentin 600 Mg Tablet) 1,200 mg PO BEDTIME [facility] Last Admin: 11/29/24 20:45 Dose: 1,200 mg Documented By: FARHAT Guaifenesin/Dextromethorphan (Guaifenesin Dm 600/30 1 Tab Tab.Er.12h) 1 tab PO BID PRN PRN Reason: Cough Last Admin: 11/29/24 16:13 Dose: 1 tab Documented By: JOSIE Cefepime HCl (Maxipime) 2 gm in 50 mls @ 100 mls/hr IV Q12H [facility] Last Infusion: 11/30/24 01:14 Dose: Infused Documented By: FARHAT Vancomycin HCl 750 mg/ Sodium (Chloride) 265 mls @ 265 mls/hr IV Q12H [facility] Last Infusion: 11/30/24 07:51 Dose: Infused Documented By: JERED Isosorbide Mononitrate (Isosorbide Mononitrate 30 Mg Tab.Er.24h) 30 mg PO DAILY [facility]; Protocol Last Admin: 11/30/24 07:50 Dose: 30 mg Documented By: JERED Levothyroxine Sodium (Levothyroxine Sodium 75 Mcg Tablet) 75 mcg PO DAILY@0600 [facility] Last Admin: 11/30/24 05:05 Dose: 75 mcg Documented By: FARHAT Lorazepam (Lorazepam 0.5 Mg Tablet) 0.5 mg PO BEDTIME PRN PRN Reason: anxiety Last Admin: 11/29/24 20:59 Dose: 0.5 mg Documented By: FARHAT Magnesium Hydroxide (Milk Of Magnesia 30 Ml Oral.Susp) 30 ml PO DAILY PRN PRN Reason: Constipation Melatonin (Melatonin 3 Mg Tablet) 6 mg PO BEDTIME PRN PRN Reason: Insomnia Methylprednisolone Sodium Succinate (Methylprednisolone Sod Succ 40 Mg/Ml Vial) 40 mg IVPUSH BID [facility] Last Admin: 11/30/24 07:48 Dose: 40 mg Documented By: JERED Ondansetron HCl (Ondansetron Hcl 4 Mg/2 Ml Vial) 4 mg IVPUSH Q8H PRN PRN Reason: Nausea and Vomiting Last Admin: 11/29/24 18:11 Dose: 4 mg Documented By: JOSIE Oxycodone HCl (Oxycodone Hcl Immed Release 5 Mg Tablet) 5 mg PO Q6H PRN PRN Reason: Pain, Severe (Pain Scale 7-10) Last Admin: 11/30/24 07:50 Dose: 5 mg Documented By: JERED Pantoprazole Sodium (Pantoprazole Sodium 20 Mg Tablet.Dr) 40 mg PO BID@0630,1630 [facility] Last Admin: 11/30/24 05:05 Dose: 40 mg Documented By: FARHAT Pharmacy Consult (Consult Rx Vancomycin Dosing) 1 each MISCELLANE DAILY PRN PRN Reason: Consult order Senna (Sennosides 8.6 Mg Tablet) 8.6 mg PO DAILY PRN PRN Reason: Constipation Last Admin: 11/30/24 07:49 Dose: 8.6 mg Documented By: JERED Sertraline HCl (Sertraline Hcl 100 Mg Tablet) 100 mg PO DAILY [facility] Last Admin: 11/30/24 07:50 Dose: 100 mg Documented By: JERED Sodium Chloride (0.9 % Sodium Chloride Flush 3 Ml Syringe) 3 ml IVFLUSH QSHIFT [facility] Last Admin: 11/30/24 07:50 Dose: 3 ml Documented By: JERED Thiamine HCl (Thiamine Hcl 100 Mg Tablet) 100 mg PO DAILY [facility] Last Admin: 11/30/24 07:49 Dose: 100 mg Documented By: JERED Tramadol HCl (Tramadol Hcl 50 Mg Tablet) 50 mg PO Q6H PRN PRN Reason: Pain, Moderate(Pain Scale 4-6) Last Admin: 11/30/24 05:04 Dose: 50 mg Documented By: FARHAT Labs 11/30/24 06:44 11/30/24 06:45 Labs: Laboratory Results - last 24 hr 11/29/24 11/29/24 11/29/24 06:24 08:59 14:33 MCV MCH MCHC RDW Plt Count MPV Absolute Nucleated RBC Nucleated RBC % (auto) Hold Purple Top SEE NOTE Anion Gap 12 Estim Creat Clear Calc Estimated GFR Haptoglobin 310 H Magnesium 1.9 Total Bilirubin 3.1 H Direct Bilirubin 2.3 H AST 449 H ALT 409 H Alkaline Phosphatase 197 H Lactate Dehydrogenase 410 H Total Protein 6.3 L Albumin 2.7 L Random Vancomycin 14.8 L 11/30/24 11/30/24 06:44 06:45 MCV 98.2 H MCH 33.3 H MCHC 33.9 RDW 16.6 H Plt Count 71 L MPV 11.0 Absolute Nucleated RBC 0.000 Nucleated RBC % (auto) 0.0 Hold Purple Top Anion Gap Estim Creat Clear Calc 81.3 Estimated GFR > 60 Haptoglobin Magnesium Total Bilirubin Direct Bilirubin AST ALT Alkaline Phosphatase Lactate Dehydrogenase Total Protein Albumin Random Vancomycin Microbiology Microbiology Results: Microbiology 11/24/24 15:47 Blood Culture - Final Blood - Venous No growth after 5 days. 11/24/24 15:42 Blood Culture - Final Blood - Venous No growth after 5 days. Assessment and Plan (1) Multifocal pneumonia: Status: Acute (2) COPD with acute exacerbation: Status: Acute (3) Cough: Status: Acute Plan Patient is a 69-year-old female with a past medical history significant for carotid artery stenosis (s/p endarterectomy Jul 2024), peripheral vascular disease (s/p bypass, subclavian stenting), CKD, renal artery stenosis, prior L3?L5 decompression, hypothyroidism, obesity, anxiety, depression, recent Streptococcus bacteremia (10/23?10/30/24), frequent falls, and recent admission at [facility] for small subacute subdural hematoma and acute delirium, who presented to the ED today due to shortness of breath, cough, upper respiratory infection symptoms for the past 4 days and found to have covid, pna, sepsis Acute hypoxic respiratory failure with sepsis secondary to multifocal pneumonia, Covid 19 and copd exacerbation, clinically improving continue Cefepime since 11/25 and vanco for PNA. DC Cefepime today 11/30 as likely causing thrombocytopenia supportive care and steroid for covid for covid, change to PO prednisone Bronchodilator and corticosteroid for COPD exacerbation O2 with goal of 92 to 94 % follow cultures. 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 MRI confirmed osteomyelitis/discitis at L5 and S1 . Continue vanco, stop Cefepime as likely causing thrombocytopenia hold lovenox, ASA, and plavix Mild hyperchloremic metabolic acidosis, likely from NS, resolved with LR hypokalemia, replaced repeat labs Acute Lactic acidosis d/t sepsis, hypoxia, albuterol, got fluid per sepsis protocol Distended gallbladder on CT, no abd pain, LFTs normal, HIDA negative Pancytopenia, acute on chronic with plat is better but hemoglobin significantly down to 20 on 11/28 check occult blood, hemolysis work up transfuse 2 units on 11/28, hold ASA, plavix, lovneox Plat has been on low in the past, possible ITP, heme consult. Suspect possible Cefepime related CKD3, baseline Hypothyroid continue levothyroxine HTN/CAD continue home meds and adjust as needed Full code VTE prophy: compression device d/t worsening pancytopenia, compression device Dispo: will need placement Quality Stroke Does the patient have a stroke diagnosis?: No VTE Prior VTE?: No VTE Risk Level:: Medical - moderate - high VTE Device Contraindication: Treatment Not Indicated VTE Drug Contraindication: N/A - Med Ordered
[2024-11-30 09:18] LABS: Anion Gap 11 (12-20); Carbon Dioxide 28 mmol/L (22-29); Chloride 101 mmol/L (96-108); Magnesium 1.7 mg/dL (1.6-2.6); Potassium 4.1 mmol/L (3.3-5.1); Sodium 136 mmol/L (135-145)
[2024-11-30] MEDS: Benzonatate 100 MG CAPSULE PO ×2 (10:49→20:59)
[2024-11-30] MEDS: guaiFENesin DM 600/30 1 TAB TAB.ER.12H PO ×2 (10:50→20:59)
--- NOTE | 2024-11-30 11:29 | MHC.CLN ---
F/U PT WITH 10% SIGNIFICANT WT LOSS X6 MONTHS PO INTAKE 50-100% DIET RX: REGULAR RECEIVING ENSURE BID TO INCREASE KCALS R/T ACUTE ILLNESS SUPP TO PROVIDE 700KCALS, 40G PROTEIN MONITOR PO INTAKE AND ENCOURAGE SUPPLEMENTS
--- NOTE | 2024-11-30 13:13 | P.CNHO_ITS ---
Subjective - Subjective Chief complaint: Difficulty breathing Patient: new to practice Consult date: 11/30/24 Primary Care Provider: [facility] [employer] Utilized?: No - Tuvaluan Speaking HPI - Consult Narrative Reason for consult: Thrombocytopenia Narrative: Myrtle Hamm is a 69 year old female with past medical history significant for carotid artery stenosis (s/p endarterectomy Jul 2024), peripheral vascular disease (s/p bypass, subclavian stenting), CKD, renal artery stenosis, recent Streptococcus bacteremia (10/23?10/30/24), frequent falls, and recent admission at [facility] for small subacute subdural hematoma and acute delirium, who presented to the ED on 11/24 due to shortness of breath, cough, upper respiratory infection symptoms for the past 4 days. She describes malaise, weakness, fatigue and fever. She reports frequent falls in the last 2 weeks due to her weakness. She reports recent strep bacteremia secondary to dental work. She had an echocardiogram on 10/27/2024 with borderline aortic stenosis and HFpEF, no vegetation seen. She says that she did have blood transfusion in June after dental extraction and again in October at [facility]. She does not remember being told of low platelets. She continues to report weakness and shortness of breath. She does not feel any better since getting admitted to the hospital. Review of Systems - Constitutional Reports as per HPI, Reports fatigue, Reports lack of energy, Reports weakness - Cardiovascular Reports no additional cardiovascular complaints - Respiratory Reports cough, Reports dyspnea - Neurologic Denies confusion, Reports frequent falls, Denies headache(s) [facility] Medical History: Medical History (Last Reviewed 11/25/24 @ 11:07 by Kalee Carver RN) Acute bacterial sinusitis Anxiety Arthritis of left hip COPD (chronic obstructive pulmonary disease) Cough Disc degeneration, lumbar History of stent insertion of renal artery Onset Date: ~07/2024 HTN (hypertension) Hypothyroidism Lumbar facet arthropathy Lumbar radicular pain Personal history of nicotine dependence Rhinitis Sacroiliac joint pain 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 Stenosis of right carotid artery greater than 50% Stenosis, spinal, lumbar Tachycardia Surgical History: Surgical History (Last Reviewed 11/25/24 @ 11:07 by Kalee Carver RN) History of carotid endarterectomy Onset Date: ~07/2024 No pertinent past surgical history S/P vascular bypass Onset Date: ~08/2024 Social History: Social History (Last Reviewed 11/24/24 @ 15:43 by Kaleigh Perez MD) Living Situation History: Household Members: Family Household Members Other:: daughter Housing: House Are you a primary health care facility administrator to a significant other at home: No Do you presently have visiting nurse or other home services: Yes 75 years or older and lives alone: No Tobacco History: Patient Tobacco Use Status: Former Tobacco user Tobacco use type: Cigarette Cigarette Packs Per Day: 0 e-Cigarette/Vaping Use: Never Used Occupation Assessmet: service: No Current occupational status: retired Current occupation: right handed, retired Sex/Gender Assessment: Sexual orientation: Unable to collect Gender identity: Unable to collect Home Medications and Allergies Current Medications: Current Medications Acetaminophen (Acetaminophen 325 Mg Tablet) 975 mg PO Q6H PRN PRN Reason: Pain, Mild 1-3,fever,headache Last Admin: 11/29/24 18:11 Dose: 975 mg Albuterol/Ipratropium (Albuterol/Iprat 2.5/0.5mg 3 Ml Ampul.Neb) 3 ml INHALE RQ6H WHILE AWAKE [facility] Last Admin: 11/30/24 08:00 Dose: 3 ml Amlodipine Besylate (Amlodipine Besylate 2.5 Mg Tablet) 2.5 mg PO DAILY [facility]; Protocol Last Admin: 11/30/24 07:48 Dose: 2.5 mg Atorvastatin Calcium (Atorvastatin Calcium 40 Mg Tablet) 40 mg PO DAILY [facility] Last Admin: 11/30/24 07:49 Dose: 40 mg Benzonatate (Benzonatate 100 Mg Capsule) 100 mg PO TID PRN PRN Reason: Cough Last Admin: 11/30/24 10:49 Dose: 100 mg Bupropion HCl (Bupropion Hcl Xl 150 Mg Tab.Er.24h) 150 mg PO DAILY [facility] Last Admin: 11/30/24 07:49 Dose: 150 mg Calcium Carbonate (Calcium Carbonate 750 Mg Tab.Chew) 750 mg PO Q4H PRN PRN Reason: Heartburn Docusate Sodium (Docusate Sodium 100 Mg Capsule) 100 mg PO DAILY PRN PRN Reason: Constipation Last Admin: 11/28/24 23:30 Dose: 100 mg Furosemide (Furosemide 20 Mg Tablet) 20 mg PO DAILY [facility]; Protocol Last Admin: 11/30/24 07:49 Dose: 20 mg Gabapentin (Gabapentin 600 Mg Tablet) 1,200 mg PO BEDTIME [facility] Last Admin: 11/29/24 20:45 Dose: 1,200 mg Guaifenesin/Dextromethorphan (Guaifenesin Dm 600/30 1 Tab Tab.Er.12h) 1 tab PO BID PRN PRN Reason: Cough Last Admin: 11/30/24 10:50 Dose: 1 tab Vancomycin HCl 750 mg/ Sodium (Chloride) 265 mls @ 265 mls/hr IV Q12H [facility] Last Infusion: 11/30/24 07:51 Dose: Infused Isosorbide Mononitrate (Isosorbide Mononitrate 30 Mg Tab.Er.24h) 30 mg PO DAILY [facility]; Protocol Last Admin: 11/30/24 07:50 Dose: 30 mg Levothyroxine Sodium (Levothyroxine Sodium 75 Mcg Tablet) 75 mcg PO DAILY@0600 [facility] Last Admin: 11/30/24 05:05 Dose: 75 mcg Lorazepam (Lorazepam 0.5 Mg Tablet) 0.5 mg PO BEDTIME PRN PRN Reason: anxiety Last Admin: 11/29/24 20:59 Dose: 0.5 mg Magnesium Hydroxide (Milk Of Magnesia 30 Ml Oral.Susp) 30 ml PO DAILY PRN PRN Reason: Constipation Melatonin (Melatonin 3 Mg Tablet) 6 mg PO BEDTIME PRN PRN Reason: Insomnia Ondansetron HCl (Ondansetron Hcl 4 Mg/2 Ml Vial) 4 mg IVPUSH Q8H PRN PRN Reason: Nausea and Vomiting Last Admin: 11/29/24 18:11 Dose: 4 mg Oxycodone HCl (Oxycodone Hcl Immed Release 5 Mg Tablet) 5 mg PO Q6H PRN PRN Reason: Pain, Severe (Pain Scale 7-10) Last Admin: 11/30/24 07:50 Dose: 5 mg Pantoprazole Sodium (Pantoprazole Sodium 20 Mg Tablet.) 40 mg PO BID@0630,1630 [facility] Last Admin: 11/30/24 05:05 Dose: 40 mg Pharmacy Consult (Consult Rx Vancomycin Dosing) 1 each MISCELLANE DAILY PRN PRN Reason: Consult order Prednisone (Prednisone 20 Mg Tablet) 40 mg PO DAILY [facility] Last Admin: 11/30/24 09:58 Dose: Not Given Senna (Sennosides 8.6 Mg Tablet) 8.6 mg PO DAILY PRN PRN Reason: Constipation Last Admin: 11/30/24 07:49 Dose: 8.6 mg Sertraline HCl (Sertraline Hcl 100 Mg Tablet) 100 mg PO DAILY [facility] Last Admin: 11/30/24 07:50 Dose: 100 mg Sodium Chloride (0.9 % Sodium Chloride Flush 3 Ml Syringe) 3 ml IVFLUSH QSHIFT [facility] Last Admin: 11/30/24 07:50 Dose: 3 ml Thiamine HCl (Thiamine Hcl 100 Mg Tablet) 100 mg PO DAILY [facility] Last Admin: 11/30/24 07:49 Dose: 100 mg Tramadol HCl (Tramadol Hcl 50 Mg Tablet) 50 mg PO Q6H PRN PRN Reason: Pain, Moderate(Pain Scale 4-6) Last Admin: 11/30/24 10:53 Dose: 50 mg Home Medications ?Medication ?Instructions ?Recorded ?Confirmed ?Type gabapentin 600 mg tablet 1,200 mg PO BEDTIME 07/12/24 11/24/24 History ipratropium 0.5 mg-albuterol 3 mg 3 ml inhalation Q6H PRN wheezing 07/12/24 11/24/24 History (2.5 mg base)/3 mL nebulization soln clopidogrel 75 mg tablet 75 mg PO DAILY 08/21/24 11/24/24 History budesonide 0.25 mg/2 mL suspension 0.25 mg inhalation BID PRN 11/24/24 11/24/24 History for nebulization Shortness Of Breath Or Wheezing bupropion HCl 200 mg tablet,12 hr 200 mg PO DAILY 11/24/24 11/24/24 History sustained-release docusate sodium 100 mg capsule 100 mg PO DAILY PRN Constipation 11/24/24 11/24/24 History (Colace) levothyroxine 75 mcg tablet 75 mcg PO DAILY@0600 11/24/24 11/24/24 History melatonin 10 mg tablet 20 mg PO BEDTIME PRN Sleep 11/24/24 11/24/24 History omeprazole 20 mg capsule,delayed 20 mg PO BID@0630,1630 11/24/24 11/24/24 History release rivaroxaban 2.5 mg tablet (Xarelto) 2.5 mg PO BID 11/24/24 History sennosides 8.6 mg tablet (senna) 8.6 mg PO DAILY PRN Constipation 11/24/24 11/24/24 History thiamine HCl (vitamin B1) 100 mg 100 mg PO DAILY 11/24/24 11/24/24 History capsule Allergies Allergy/AdvReac Type Severity Reaction Status Date / Time codeine Allergy Unknown Unknown Verified 11/24/24 15:28 Physical Exam Vital signs: Vital Signs Temp 98.7 F 11/30/24 11:07 Pulse 94 11/30/24 11:07 Resp 20 11/30/24 11:07 BP 131/65 11/30/24 11:07 Pulse Ox 90 L 11/30/24 11:07 O2 Del Method Nasal Cannula 11/30/24 11:07 O2 Flow Rate 8 11/30/24 11:07 FiO2 33 11/24/24 17:01 Intake & Output 11/29/24 11/30/24 11/30/24 18:59 06:59 18:59 Intake Total 795 / 1145 350 / 1145 265 / 265 Balance 795 / 1145 350 / 1145 265 / 265 Intake: Intake, Oral Amount 480 / 780 300 / 780 Intake, IV Amount 315 / 365 50 / 365 265 / 265 cefEPime HCl/D5W 2 gm In 50 ml 50 / 100 50 / 100 @ 100 mls/hr IV Q12H [facility] Rx#: [id number] vancomycin HCL 750 mg In 0.9 % 265 / 265 265 / 265 Sodium Chloride 250 ml @ 265 mls/hr IV Q12H [facility] Rx#: [id number] Other: Meal Refused No NPO No Breakfast % Eaten 100% Lunch % Eaten 100% Eating (Feeding) Ability Independent Number of Incontinent Voids 1 Number of Unmeasured Voids 2 2 Urine Bedpan Urine Color Yellow Last Bowel Movement 11/25/24 Weight 71.4 kg - Constitutional Present: mild distress, chronically ill appearing - Routine HEENT Exam Head: Present: normal inspection Eye: Present: conjunctivae pale - Routine Neck Exam Absent: lymphadenopathy - Routine Respiratory Exam Present: accessory muscle use, rhonchi - Routine Cardiovascular Exam Cardiovascular: Present: S1, S2 - Routine Extremities Exam Present: pulses intact - Routine Skin Exam Present: intact - Routine Neurological Exam Present: alert, oriented X3 Hem/Onc Consult Result - Labs CBC & Chem 7: 11/30/24 06:44 11/30/24 06:45 Labs: Short CBC 11/30/24 Range/Units 06:44 WBC 4.3 L (4.8-10.8) X10*3/uL Hgb 11.4 L (12.0-16.0) g/dl Hct 33.6 L (37.0-47.0) % Plt Count 71 L (160-400) X10*3/uL BMP 11/30/24 06:45 Sodium 136 Potassium 4.1 Chloride 101 Carbon Dioxide 28 Creatinine 0.68 Assessment and Plan Patient Active problem list reviewed?: Yes (1) Thrombocytopenia Status: Acute Assessment and plan: 1. This is a 69-year-old woman with multiple medical problems who is currently admitted for acute hypoxic respiratory failure with sepsis secondary to multifocal pneumonia and COVID-19 infection. She was on cefepime and vancomycin. Cefepime has just been discontinued. She has had acute worsening of chronic thrombocytopenia as well as anemia necessitating blood transfusion. She has had multiple recent medical problems including staph bacteremia in October for which she was admitted at [facility]. She states that she received blood transfusion last month as well. Since admission her platelets have been gradually declining. This is probably multifactorial. Infection, use of antibiotics as well as worsening liver functions could all be implicated in thrombocytopenia. I do not see that she received any heparin. No evidence of DIC, her coagulation tests and fibrinogen level are normal. Her kidney functions are stable in bilirubin is improving therefore less likely for this to be myelophthisic process such as TTP or HUS. At this time other than monitoring platelet counts and CBC as well as liver functions, no further recommendations. I will follow with you, thank you for the consultation. - Time Spent With Patient Time Spent with Patient (in minutes): 20 Additional Coding: - Additional E/M codes Complex E/M visit Add On: CPT G2211
[2024-11-30 13:50] LABS: Fibrinogen 676 MG/DL (259-690); INTERNATIONAL NORM RATIO 1.2 (0.9-1.1); Partial Thromboplastin Time 30.6 SEC (26.0-36.8); Prothrombin Time 13.6 SEC (10.9-12.4)
--- NOTE | 2024-11-30 13:53 | MHC.CM.PN ---
EMR reviewed and per MD rounds, pt is not medically cleared for discharge due to management of sepsis secondary to multifocal pneumonia, and awaiting PT eval.
[2024-11-30 13:57] LABS: Alanine Aminotransferase 245 U/L (0-31); Albumin Level 2.9 g/dL (3.5-5.0); Alkaline Phosphatase 187 U/L (39-117); Aspartate Amino Transferase 144 U/L (5-31); Bilirubin Direct 1.2 mg/dL (0.0-0.5); Bilirubin Total 1.8 mg/dL (0.0-1.0); Total Protein 6.7 g/dL (6.5-8.0)
--- NOTE | 2024-11-30 16:49 | P.CNID_ITS ---
History of Present Illness Data of Consult Service Date: 11/30/24 Requesting physician: Germán Edward Primary Care Provider: WILLIE Payne HPI Reason for consult: OM L5-S1 She presents with recurrent falls and weakness She has no fever or chills or dysuria She has severe back pain MRI L5-S1 OM She has dental procedure in June with extraction upper teeth and dentures. 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 Arthritis of left hip Disc degeneration, lumbar Lumbar facet arthropathy Stenosis, spinal, lumbar Sacroiliac joint pain Lumbar radicular pain Rhinitis Hypothyroidism Anxiety Tachycardia Cough COPD (chronic obstructive pulmonary disease) Family History Family history: reviewed and not pertinent Surgical History Surgical History S/P vascular bypass (~08/2024) History of carotid endarterectomy (~07/2024) No pertinent past surgical history Social History Social History Household Members: Family Household Members Other:: daughter Housing: House Are you a primary foster care social worker to a significant other at home: No Do you presently have visiting nurse or other home services: Yes 75 years or older and lives alone: No Alcohol intake: current Alcohol intake frequency: a few times a week Alcohol type: beer Patient Tobacco Use Status: Former Tobacco user Tobacco use type: Cigarette Cigarette Packs Per Day: 0 e-Cigarette/Vaping Use: Never Used service: No Current occupational status: retired Current occupation: right handed, retired Sexual orientation: Unable to collect Gender identity: Unable to collect Cognitive needs: No Hearing needs: No Vision needs: Yes (wears glasses to drive.) Meds Allergies Allergy/AdvReac Type Severity Reaction Status Date / Time codeine Allergy Unknown Unknown Verified 11/24/24 15:28 Active Medications: Current Medications Acetaminophen (Acetaminophen 325 Mg Tablet) 975 mg PO Q6H PRN PRN Reason: Pain, Mild 1-3,fever,headache Last Admin: 11/29/24 18:11 Dose: 975 mg Albuterol/Ipratropium (Albuterol/Iprat 2.5/0.5mg 3 Ml Ampul.Neb) 3 ml INHALE RQ6H WHILE AWAKE [facility] Last Admin: 11/30/24 13:45 Dose: 3 ml Amlodipine Besylate (Amlodipine Besylate 2.5 Mg Tablet) 2.5 mg PO DAILY [facility]; Protocol Last Admin: 11/30/24 07:48 Dose: 2.5 mg Atorvastatin Calcium (Atorvastatin Calcium 40 Mg Tablet) 40 mg PO DAILY [facility] Last Admin: 11/30/24 07:49 Dose: 40 mg Benzonatate (Benzonatate 100 Mg Capsule) 100 mg PO TID PRN PRN Reason: Cough Last Admin: 11/30/24 10:49 Dose: 100 mg Bupropion HCl (Bupropion Hcl Xl 150 Mg Tab.Er.24h) 150 mg PO DAILY [facility] Last Admin: 11/30/24 07:49 Dose: 150 mg Calcium Carbonate (Calcium Carbonate 750 Mg Tab.Chew) 750 mg PO Q4H PRN PRN Reason: Heartburn Docusate Sodium (Docusate Sodium 100 Mg Capsule) 100 mg PO DAILY PRN PRN Reason: Constipation Last Admin: 11/28/24 23:30 Dose: 100 mg Furosemide (Furosemide 20 Mg Tablet) 20 mg PO DAILY [facility]; Protocol Last Admin: 11/30/24 07:49 Dose: 20 mg Gabapentin (Gabapentin 600 Mg Tablet) 1,200 mg PO BEDTIME [facility] Last Admin: 11/29/24 20:45 Dose: 1,200 mg Guaifenesin/Dextromethorphan (Guaifenesin Dm 600/30 1 Tab Tab.Er.12h) 1 tab PO BID PRN PRN Reason: Cough Last Admin: 11/30/24 10:50 Dose: 1 tab Vancomycin HCl 750 mg/ Sodium (Chloride) 265 mls @ 265 mls/hr IV Q12H [facility] Last Admin: 11/30/24 15:56 Dose: 265 mls/hr Isosorbide Mononitrate (Isosorbide Mononitrate 30 Mg Tab.Er.24h) 30 mg PO DAILY [facility]; Protocol Last Admin: 11/30/24 07:50 Dose: 30 mg Levothyroxine Sodium (Levothyroxine Sodium 75 Mcg Tablet) 75 mcg PO DAILY@0600 [facility] Last Admin: 11/30/24 05:05 Dose: 75 mcg Lorazepam (Lorazepam 0.5 Mg Tablet) 0.5 mg PO BEDTIME PRN PRN Reason: anxiety Last Admin: 11/29/24 20:59 Dose: 0.5 mg Magnesium Hydroxide (Milk Of Magnesia 30 Ml Oral.Susp) 30 ml PO DAILY PRN PRN Reason: Constipation Melatonin (Melatonin 3 Mg Tablet) 6 mg PO BEDTIME PRN PRN Reason: Insomnia Ondansetron HCl (Ondansetron Hcl 4 Mg/2 Ml Vial) 4 mg IVPUSH Q8H PRN PRN Reason: Nausea and Vomiting Last Admin: 11/29/24 18:11 Dose: 4 mg Oxycodone HCl (Oxycodone Hcl Immed Release 5 Mg Tablet) 5 mg PO Q6H PRN PRN Reason: Pain, Severe (Pain Scale 7-10) Last Admin: 11/30/24 13:54 Dose: 5 mg Pantoprazole Sodium (Pantoprazole Sodium 20 Mg Tablet.Dr) 40 mg PO BID@0630,1630 [facility] Last Admin: 11/30/24 15:56 Dose: 40 mg Pharmacy Consult (Consult Rx Vancomycin Dosing) 1 each MISCELLANE DAILY PRN PRN Reason: Consult order Prednisone (Prednisone 20 Mg Tablet) 40 mg PO DAILY [facility] Last Admin: 11/30/24 09:58 Dose: Not Given Senna (Sennosides 8.6 Mg Tablet) 8.6 mg PO DAILY PRN PRN Reason: Constipation Last Admin: 11/30/24 07:49 Dose: 8.6 mg Sertraline HCl (Sertraline Hcl 100 Mg Tablet) 100 mg PO DAILY [facility] Last Admin: 11/30/24 07:50 Dose: 100 mg Sodium Chloride (0.9 % Sodium Chloride Flush 3 Ml Syringe) [facility] [place] Last Admin: 11/30/24 15:56 Dose: 3 ml Thiamine HCl (Thiamine Hcl 100 Mg Tablet) 100 mg PO DAILY [facility] Last Admin: 11/30/24 07:49 Dose: 100 mg Tramadol HCl (Tramadol Hcl 50 Mg Tablet) 50 mg PO Q6H PRN PRN Reason: Pain, Moderate(Pain Scale 4-6) Last Admin: 11/30/24 10:53 Dose: 50 mg Home Medications ?Medication ?Instructions ?Recorded ?Confirmed ?Last Taken ?Type gabapentin 600 mg tablet 1,200 mg PO BEDTIME 07/12/24 11/24/24 11/23/24 History ipratropium 0.5 mg-albuterol 3 mg 3 ml inhalation Q6H PRN wheezing 07/12/24 11/24/24 Unknown History (2.5 mg base)/3 mL nebulization soln clopidogrel 75 mg tablet 75 mg PO DAILY 08/21/24 11/24/24 11/24/24 History budesonide 0.25 mg/2 mL suspension 0.25 mg inhalation BID PRN 11/24/24 11/24/24 Unknown History for nebulization Shortness Of Breath Or Wheezing bupropion HCl 200 mg tablet,12 hr 200 mg PO DAILY 11/24/24 11/24/24 11/24/24 History sustained-release docusate sodium 100 mg capsule 100 mg PO DAILY PRN Constipation 11/24/24 11/24/24 11/24/24 History (Colace) levothyroxine 75 mcg tablet 75 mcg PO DAILY@0600 11/24/24 11/24/24 11/24/24 History melatonin 10 mg tablet 20 mg PO BEDTIME PRN Sleep 11/24/24 11/24/24 11/24/24 History omeprazole 20 mg capsule,delayed 20 mg PO BID@0630,1630 11/24/24 11/24/24 11/24/24 History release rivaroxaban 2.5 mg tablet (Xarelto) 2.5 mg PO BID 11/24/24 Unknown History sennosides 8.6 mg tablet (senna) 8.6 mg PO DAILY PRN Constipation 11/24/24 11/24/24 11/24/24 History thiamine HCl (vitamin B1) 100 mg 100 mg PO DAILY 11/24/24 11/24/24 11/24/24 History capsule Physical Exam 2 Vital Signs: Vital Signs: Last Vital Signs Temp 98.7 F 11/30/24 15:40 Pulse 94 11/30/24 15:40 Resp 20 11/30/24 15:40 BP 134/65 11/30/24 15:40 Pulse Ox 91 L 11/30/24 15:40 O2 Del Method Nasal Cannula 11/30/24 15:40 O2 Flow Rate 8 11/30/24 11:07 FiO2 33 11/24/24 17:01 BMI result Body Mass Index 25.4 Const: General: cooperative HEENT: Head: Yes normal to inspection Face and sinus: Yes normal facial exam Mouth: Normal oral and palatal mucosa present Teeth and gingiva: d entition normal Eyes: General: appearance normal, both eyes and all related structures P upils: Equal, round and reactive pupils present Resp: Effort & Inspection: normal respiratory effort Cardio: Rate: regular rate Rhythm: regular rhythm GI: Palpation (GI): Soft to palpation and nontender : General: Yes no CVA tenderness Back/Spine/Pelvis: Other: back pain Back: no CVA tenderness Skin: General skin exam: no rashes or lesions noted Neuro: General: moves all extremities Cranial nerves: Yes Equal, round and reactive pupils present Extrem: General: Yes normal to inspection Psych: Appearance: grossly normal Results Labs 11/30/24 06:44 11/30/24 06:45 Labs: Short CBC 11/30/24 Range/Units 06:44 WBC 4.3 L (4.8-10.8) X10*3/uL Hgb 11.4 L (12.0-16.0) g/dl Hct 33.6 L (37.0-47.0) % Plt Count 71 L (160-400) X10*3/uL BMP 11/30/24 06:45 Sodium 136 Potassium 4.1 Chloride 101 Carbon Dioxide 28 Creatinine 0.68 Liver Function 11/30/24 Range/Units 13:29 Total Bilirubin 1.8 H (0.0-1.0) mg/dL Direct Bilirubin 1.2 H (0.0-0.5) mg/dL AST 144 H (5-31) U/L ALT 245 H (0-31) U/L Alkaline Phosphatase 187 H (39-117) U/L Albumin 2.9 L (3.5-5.0) g/dL Microbiology Microbiology Results: Microbiology 11/24/24 15:47 Blood - Venous Blood Culture - Final No growth after 5 days. 11/24/24 15:42 Blood - Venous Blood Culture - Final No growth after 5 days. Assessment and Plan (1) Osteomyelitis: Status: Acute Plan Would continue Vancomycin,probably six weeks. Consider ertapenem as well with possible gram negatives dental.
[2024-11-30] MEDS: Gabapentin 600 MG TABLET 1200 MG PO (20:59)
[2024-11-30] MEDS: LORazepam 0.5 MG TABLET PO (20:59)
[2024-12-01] VITALS (17 sets, daily range): BP systolic 103–132; BP diastolic 58–68; PULSE 84–97; RESP 17–22; TEMP 36–37.1; O2SAT 75–99
[2024-12-01] MEDS: Albuterol/Iprat 2.5/0.5MG 3 ML AMPUL.NEB INHALE ×4 (01:17→20:30)
[2024-12-01] MEDS: traMADoL HCL 50 MG TABLET PO ×2 (03:06→08:50)
[2024-12-01] MEDS: guaiFENesin 200 MG/10 ML 10 ML LIQUID PO ×2 (03:06→20:18)
--- NOTE | 2024-12-01 03:38 | PC.NURSE ---
Pt seen on bed alert and oriented, very weak, still with SOB on exertion, tolerating O2 at 8L/min via [place], c/o back pain, prn Tramadol and Oxycodone given alternately with good effect, rest of meds tolerated, care rendered. At 0000, pt desats to the 70s, with persistent coughing and low back pain, prn Oxy given, O2 titrated to 10L/min, RT was called for neb pt recovered to the 90s after an hour, RT came and titrated O2 down to 8L. At 0230 pt again desats to the 70s, with persistent coughing, repositioned and boosted, O2 titrated to 10L/min, Dr. Bal was paged for prn Cough med, Guaifenissin syrup ordered, sats recovered to low to mid 90s after 30mins.
[2024-12-01] MEDS: vancomycin HCL 750 MG in 0.9 % Sodium Chloride 250 ML 265 MG IV (03:54)
[2024-12-01] MEDS: Pantoprazole Sodium 20 MG TABLET.DR 40 MG PO ×2 (05:47→15:54)
[2024-12-01] MEDS: Benzonatate 100 MG CAPSULE PO (05:47)
[2024-12-01] MEDS: Levothyroxine Sodium 75 MCG TABLET PO (05:47)
[2024-12-01] MEDS: oxyCODONE HCl Immed Release 5 MG TABLET PO ×4 (06:33→20:19)
[2024-12-01 06:36] LABS: Hematocrit 33.7 % (37.0-47.0); Hemoglobin 11.6 g/dl (12.0-16.0); Mean Corpuscular HGB Conc 34.4 g/dl (31.0-35.0); Mean Corpuscular Hemoglobin 33.3 pg (27.0-33.0); Mean Corpuscular Volume 96.8 fL (80.0-98.0); Red Blood Count 3.48 X10*6/uL (4.20-5.50); Red Cell Distribution Width 15.8 % (11.0-16.0); White Blood Count 6.5 X10*3/uL (4.8-10.8)
[2024-12-01 06:37] LABS: Platelet Count 65 X10*3/uL (160-400)
[2024-12-01 06:56] LABS: Creatinine Clr Calc Pharmacy 83.7; Estimated Glomerular Filt Rate > 60
[2024-12-01] MEDS: 0.9 % Sodium Chloride Flush 3 ML SYRINGE IVFLUSH ×3 (08:38→20:24)
[2024-12-01] MEDS: Isosorbide Mononitrate 30 MG TAB.ER.24H PO (08:38)
[2024-12-01] MEDS: buPROPion HCl XL 150 MG TAB.ER.24H PO (08:38)
[2024-12-01] MEDS: Furosemide 20 MG TABLET PO (08:38)
[2024-12-01] MEDS: Sertraline HCL 100 MG TABLET PO (08:38)
[2024-12-01] MEDS: amLODIPine Besylate 2.5 MG TABLET PO (08:38)
[2024-12-01] MEDS: predniSONE 20 MG TABLET 40 MG PO (08:38)
[2024-12-01] MEDS: Thiamine HCL 100 MG TABLET PO (08:38)
[2024-12-01] MEDS: Atorvastatin Calcium 40 MG TABLET PO (08:38)
[2024-12-01 09:39] LABS: Alanine Aminotransferase 191 U/L (0-31); Albumin Level 2.8 g/dL (3.5-5.0); Alkaline Phosphatase 181 U/L (39-117); Anion Gap 17 (12-20); Aspartate Amino Transferase 115 U/L (5-31); Bilirubin Total 1.7 mg/dL (0.0-1.0); Blood Urea Nitrogen 13 mg/dL (9-16); Calcium 8.1 mg/dL (8.4-10.2); Carbon Dioxide 25 mmol/L (22-29); Chloride 96 mmol/L (96-108); Glucose Random 79 mg/dL (60-115); Potassium 3.7 mmol/L (3.3-5.1); Sodium 134 mmol/L (135-145); Total Protein 6.6 g/dL (6.5-8.0)
[2024-12-01] MEDS: Meropenem 1 GM VIAL IVPUSH ×2 (11:07→18:09)
[2024-12-01] MEDS: ondansetron HCL 4 MG/2 ML VIAL IVPUSH (11:12)
[2024-12-01 14:18] LABS: Vancomycin Random 21.7 mcg/mL (15-20)
--- NOTE | 2024-12-01 14:25 | HO.PM.IMPN ---
Subjective Subjective Date of Service: 12/01/24 Interval History: c/o shortness of breath and generalized weakness, lower back pain Review of Systems Review of Systems: Yes all other systems are reviewed and are negative Physical Exam Vital Signs: Vital Signs: Last Vital Signs Temp 97.2 F 12/01/24 11:36 Pulse 93 12/01/24 11:36 Resp 17 12/01/24 11:36 BP 112/58 L 12/01/24 11:36 Pulse Ox 86 L 12/01/24 11:36 O2 Del Method Nasal Cannula 12/01/24 11:36 O2 Flow Rate 8 12/01/24 11:36 FiO2 33 11/24/24 17:01 BMI result Body Mass Index 25.4 Gen: in no acute distress HEENT: sclera anicteric, moist mucus membranes Neck: supple Lungs: bilateral inspiratory crackles Heart: regular rate and rhythm, no murmurs Abd: soft, non-tender, non-distended Ext: no edema Skin: warm/well-perfused Neuro: alert and oriented x3, no focal findings Psych: appropriate affect Objective Data Active Medications Acetaminophen (Acetaminophen 325 Mg Tablet) 975 mg PO Q6H PRN PRN Reason: Pain, Mild 1-3,fever,headache Last Admin: 11/29/24 18:11 Dose: 975 mg Documented By: JOSIE Albuterol/Ipratropium (Albuterol/Iprat 2.5/0.5mg 3 Ml Ampul.Neb) 3 ml INHALE RQ6H WHILE AWAKE [facility] Last Admin: 12/01/24 08:05 Dose: 3 ml Documented By: ZENIA Amlodipine Besylate (Amlodipine Besylate 2.5 Mg Tablet) 2.5 mg PO DAILY [facility]; Protocol Last Admin: 12/01/24 08:38 Dose: 2.5 mg Documented By: JERED Atorvastatin Calcium (Atorvastatin Calcium 40 Mg Tablet) 40 mg PO DAILY [facility] Last Admin: 12/01/24 08:38 Dose: 40 mg Documented By: JERED Benzonatate (Benzonatate 100 Mg Capsule) 100 mg PO TID PRN PRN Reason: Cough Last Admin: 12/01/24 05:47 Dose: 100 mg Documented By: CASTDIAMOND Bupropion HCl (Bupropion Hcl Xl 150 Mg Tab.Er.24h) 150 mg PO DAILY [facility] Last Admin: 12/01/24 08:38 Dose: 150 mg Documented By: JERED Calcium Carbonate (Calcium Carbonate 750 Mg Tab.Chew) 750 mg PO Q4H PRN PRN Reason: Heartburn Docusate Sodium (Docusate Sodium 100 Mg Capsule) 100 mg PO DAILY PRN PRN Reason: Constipation Last Admin: 11/28/24 23:30 Dose: 100 mg Documented By: CLARISA Comments: pt requested Furosemide (Furosemide 20 Mg Tablet) 20 mg PO DAILY [facility]; Protocol Last Admin: 12/01/24 08:38 Dose: 20 mg Documented By: JERED Gabapentin (Gabapentin 600 Mg Tablet) 1,200 mg PO BEDTIME [facility] Last Admin: 11/30/24 20:59 Dose: 1,200 mg Documented By: LAI Guaifenesin (Guaifenesin 200 Mg/10 Ml 10 Ml Liquid) 10 ml PO Q6H PRN PRN Reason: Cough Last Admin: 12/01/24 03:06 Dose: 10 ml Documented By: LAI Guaifenesin/Dextromethorphan (Guaifenesin Dm 600/30 1 Tab Tab.Er.12h) 1 tab PO BID PRN PRN Reason: Cough Last Admin: 11/30/24 20:59 Dose: 1 tab Documented By: LAI Vancomycin HCl 750 mg/ Sodium (Chloride) 265 mls @ 265 mls/hr IV Q12H [facility] Last Infusion: 12/01/24 05:09 Dose: Infused Documented By: LAI Isosorbide Mononitrate (Isosorbide Mononitrate 30 Mg Tab.Er.24h) 30 mg PO DAILY [facility]; Protocol Last Admin: 12/01/24 08:38 Dose: 30 mg Documented By: JERED Levothyroxine Sodium (Levothyroxine Sodium 75 Mcg Tablet) 75 mcg PO DAILY@0600 [facility] Last Admin: 12/01/24 05:47 Dose: 75 mcg Documented By: LAI Lorazepam (Lorazepam 0.5 Mg Tablet) 0.5 mg PO BEDTIME PRN PRN Reason: anxiety Last Admin: 11/30/24 20:59 Dose: 0.5 mg Documented By: LAI Magnesium Hydroxide (Milk Of Magnesia 30 Ml Oral.Susp) 30 ml PO DAILY PRN PRN Reason: Constipation Melatonin (Melatonin 3 Mg Tablet) 6 mg PO BEDTIME PRN PRN Reason: Insomnia Meropenem (Meropenem 1 Gm Vial) 1 gm IVPUSH Q8H [facility] Last Admin: 12/01/24 11:07 Dose: 1 gm Documented By: JERED Ondansetron HCl (Ondansetron Hcl 4 Mg/2 Ml Vial) 4 mg IVPUSH Q8H PRN PRN Reason: Nausea and Vomiting Last Admin: 12/01/24 11:12 Dose: 4 mg Documented By: JERED Oxycodone HCl (Oxycodone Hcl Immed Release 5 Mg Tablet) 5 mg PO Q6H PRN PRN Reason: Pain, Severe (Pain Scale 7-10) Last Admin: 12/01/24 06:33 Dose: 5 mg Documented By: LAI Pantoprazole Sodium (Pantoprazole Sodium 20 Mg Tablet.Dr) 40 mg PO BID@0630,1630 [facility] Last Admin: 12/01/24 05:47 Dose: 40 mg Documented By: LAI Pharmacy Consult (Consult Rx Vancomycin Dosing) 1 each MISCELLANE DAILY PRN PRN Reason: Consult order Prednisone (Prednisone 20 Mg Tablet) 40 mg PO DAILY [facility] Last Admin: 12/01/24 08:38 Dose: 40 mg Documented By: JERED Senna (Sennosides 8.6 Mg Tablet) 8.6 mg PO DAILY PRN PRN Reason: Constipation Last Admin: 11/30/24 07:49 Dose: 8.6 mg Documented By: JERED Sertraline HCl (Sertraline Hcl 100 Mg Tablet) 100 mg PO DAILY [facility] Last Admin: 12/01/24 08:38 Dose: 100 mg Documented By: JERED Sodium Chloride (0.9 % Sodium Chloride Flush 3 Ml Syringe) 3 ml IVFLUSH QSHIFT [facility] Last Admin: 12/01/24 08:38 Dose: 3 ml Documented By: JERED Thiamine HCl (Thiamine Hcl 100 Mg Tablet) 100 mg PO DAILY [facility] Last Admin: 12/01/24 08:38 Dose: 100 mg Documented By: JERED Tramadol HCl (Tramadol Hcl 50 Mg Tablet) 50 mg PO Q6H PRN PRN Reason: Pain, Moderate(Pain Scale 4-6) Last Admin: 12/01/24 08:50 Dose: 50 mg Documented By: JERED Labs 12/01/24 06:01 12/01/24 06:01 Labs: Laboratory Results - last 24 hr 12/01/24 12/01/24 06:01 13:55 MCV 96.8 MCH 33.3 H MCHC 34.4 RDW 15.8 Plt Count 65 L MPV 11.0 Absolute Nucleated RBC 0.000 Nucleated RBC % (auto) 0.0 Anion Gap 17 Estim Creat Clear Calc 83.7 Estimated GFR > 60 Random Glucose 79 Calcium 8.1 L Total Bilirubin 1.7 H AST 115 H ALT 191 H Alkaline Phosphatase 181 H Total Protein 6.6 Albumin 2.8 L Random Vancomycin 21.7 H Assessment and Plan (1) Multifocal pneumonia: Status: Acute (2) COPD with acute exacerbation: Status: Acute (3) Cough: Status: Acute Plan d8 for 69yo F with carotid stenosis s/p endarterectomy, PVD s/p bypass + subclavian stenting, CKD3, JUSTYN, L3-L5 decompression surgery, hypothyroidism, mood disorder, and recent Streptococcus mutans bacteremia treated with amoxicillin, also recent small subacute hematoma and delirium presented with dyspnea and cough, admitted for hypoxia and sepsis due to Covid-19 + pneumonia found to have osteomyelitis/discitis L5/S1 osteomyelitis multifocal pneumonia - vancomycin + ertapenem [meropenem while hospitalized] 6 wk per ID, 11/24-01/05, BCx clear, will order PICC - pain control with lidocaine patch, oxycodone, IV morphine acute hypoxic respiratory failure due to pneumonia, Covid-19, and COPD exacerbation - change prednisone back to IV methylprednisolone; continue nebs - CTA negative for PE 11/24 - supplemental O2, wean as tolerated thrombocytopenia - suspect due to sepsis, possibly from cefepime as well which has been stopped and changed to meropenem carotid stenosis PVD - resume ASA + clopidogrel hypoK - repleted acute lactic acidosis - due to hypoxia + bronchodilators distended gallbladder on CT - no abd pain, HIDA negative elevated LFTs - suspect due to sepsis; improving; continue to monitor anemia - likely due to chronic inflammation; transfused 2u pRBCs on 11/28 and H+H improved CKD3 - SCr at baseline hypothyroidism - continue LT4 HTN CAD - Imdur, furosemide, amlodipine mood disorder - bupropion, sertraline, lorazepam VTE ppx - SCDs, no heparin due to thrombocytopenia dispo - STR In my clinical judgment, the patient requires continued inpatient hospitalization for the following reasons: hypoxia, IV ABX Total time managing care of this patient today: 55 minutes. Quality Stroke Does the patient have a stroke diagnosis?: No VTE Prior VTE?: No VTE Risk Level:: Medical - moderate - high VTE Device Contraindication: Treatment Not Indicated VTE Drug Contraindication: N/A - Med Ordered
[2024-12-01] MEDS: Lidocaine 4 % Patch ADH..PATCH 1 PATCH TRANSDERMA (15:53)
[2024-12-01] MEDS: methylPREDNISolone Sod Succ 40 MG/ML VIAL IVPUSH (15:54)
--- NOTE | 2024-12-01 16:44 | PC.NURSE ---
Addendum entered by Edith Lott RN 12/01/24 17:38: High flow 55 l /60 % O2sat 91-92%, Lasix 40 mg IV push x 1, BNP, Cxray , mechanical assembly Original Note: this afternoon pt Oxygen demands increased from 10 liters via rojo cannula to [address] Llanos was notified , Plan : high flow
[2024-12-01] MEDS: Furosemide 20 MG/2 ML VIAL 40 MG IVPUSH (17:35)
[2024-12-01 17:51] LABS: B Type Natriuretic Peptide 87 pg/mL (<100)
[2024-12-01] MEDS: vancomycin HCL 500 MG in 0.9 % Sodium Chloride 100 ML 110 MG IV (20:15)
[2024-12-01] MEDS: LORazepam 0.5 MG TABLET PO (20:19)
[2024-12-01] MEDS: Melatonin 3 MG TABLET 6 MG PO (20:19)
[2024-12-01] MEDS: Aspirin Enteric Coated 81 MG TABLET.DR PO (20:20)
[2024-12-01] MEDS: Gabapentin 600 MG TABLET 1200 MG PO (20:20)
[2024-12-02] VITALS (13 sets, daily range): BP systolic 118–178; BP diastolic 53–74; PULSE 65–83; RESP 17–20; TEMP 35.9–36.9; O2SAT 90–98
[2024-12-02] MEDS: methylPREDNISolone Sod Succ 40 MG/ML VIAL IVPUSH ×2 (02:40→15:14)
[2024-12-02] MEDS: Meropenem 1 GM VIAL IVPUSH ×3 (02:40→18:45)
[2024-12-02] MEDS: Levothyroxine Sodium 75 MCG TABLET PO (05:35)
[2024-12-02] MEDS: Pantoprazole Sodium 20 MG TABLET.DR 40 MG PO ×2 (05:35→16:10)
[2024-12-02] MEDS: oxyCODONE HCl Immed Release 5 MG TABLET PO ×4 (05:40→21:39)
--- NOTE | 2024-12-02 07:00 | CA_ITS ---
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 Normal LV ejection fraction of 60 65% with impaired relaxation filling pattern 2. Mildly dilated left atrium 3. Early mild aortic stenosis with moderate mitral annular calcification 4. Normal RV systolic pressure 5. No pericardial effusion Findings Procedure Information Contrast agent, definity, is being given per protocol without apparent complications. Left Ventricle Normal left ventricular size, thickness, and systolic function. The visually estimated ejection fraction is between 60-65%. Spectral Doppler is indicative of an impaired relaxation filling pattern. E/E prime ratio is between 8 and 15 consistent with indeterminate filling pressures. Right Ventricle Normal right ventricular cavity size and systolic function. Atria The left atrium is mildly dilated. There is no evidence of interatrial shunt. The right atrium is normal in size. Aortic Valve The aortic valve was not well visualized. There is mild calcification of the aortic valve. There is mild aortic valve stenosis. The peak aortic velocity is 1.71 m/s with a calculated peak gradient of 12 mmHg. The mean gradient is 5 mmHg. The aortic valve area is 1.84 cm2. There is no aortic valve regurgitation. Mitral Valve There is mild anterior and moderate posterior mitral leaflet thickening. There is moderate mitral annular calcification. There is trace mitral valve regurgitation. There is no mitral valve stenosis. Pulmonic Valve The pulmonic valve was not well visualized. Tricuspid Valve Likely normal tricuspid valve structure and function. There is mild tricuspid valve regurgitation. The right ventricular systolic pressure is normal. The right ventricular systolic pressure is 30 mmHg. Normal right atrial pressure. There is no evidence of pulmonary hypertension. Great Vessels All visible segments of the aorta are normal in size. The pulmonary artery was not well visualized. There is no dilatation of the ascending aorta measuring 3.40 cm. Venous The inferior vena cava is normal in size and collapses greater than 50% with inspiration. Pericardium/Pleural There is no evidence of pericardial effusion. Prior Study Comparison No prior study available for comparison. Measurements 2D Linear Measurements IVSd: 1.07 0.6-0.9/0.6-1.0 cm LVIDd: 4.16 3.9-5.3/4.2-5.9 cm LVIDd Index: 2.31 2.4-3.2/2.2-3.1 cm/m2 LVIDs: 2.73 2.0-3.6 cm LVPWd: 1.09 0.7-1.1 cm LA Diam: 3.80 2.7-3.8/3.0-4.0 cm LAIDs Index: 2.11 1.5-2.3 cm/m2 LV Mass: 218.72 67-162/88-224 g LV Mass Index: 121.51 43-95/49-115 g/m2 LVOT Diam: 1.90 3.0+(-)1.3 cm 2D Systolic Function EF 4C: 65.10 >55% EF 2C: 64.40 >55% EF BiP: 63.90 >55% Mitral Valve MV Pk E: 0.67 MV PK A: 1.13 MV Decel Time: 319.00 E/A: 0.60 E'Lateral: 5.00 E'Medial: 3.70 E/E' Med: 18.20 E/E' Lat: 13.50 PHT: 93.00 MVA PHT: 2.37 Decel [place]: 2.11 Aortic Valve AoV Pk Greg: 1.71 AoV Mn Greg: 1.07 AoV VTI: 0.32 AoV Pk Grad: 12.00 Aov Mn Grad: 5.00 RUFINO Cont.VTI: 1.84 LVOT LVOT Pk Greg: 1.06 LVOT Mn Greg: 0.70 LVOT VTI: 0.21 LVOT Pk Grad: 4.00 LVOT Mn Grad: 2.00 LVOT Diam: 1.90 LVOT Area: 2.84 Diastolic Function MV Pk E: 0.67 MV Pk A: 1.13 E/A: 0.60 E'Medial: 3.70 E/E' Med: 18.20 E' Laterial: 5.00 E/E' Lat: 13.50 Right Ventricle TAPSE (mm): 22.20 TVS' Greg: 13.70 Tricuspid Valve TR Pk Greg: 2.61 TR Pk Grad: 27.00 RA Press: 3.00 RVSP: 30.00 Great Vessels Aorta Sinus of Valsalva: 3.32 2.0-3.[address] [place]: 2.11 1.7-3.4 cm Ao Asc: 3.40 2.1-3.4 cm Updated in Other Vendor System with Status of Final Yomi Krishnan MD electronically signed on 12/02/2024 3:45:50 PM with status of Final
[2024-12-02] MEDS: Albuterol/Iprat 2.5/0.5MG 3 ML AMPUL.NEB INHALE ×3 (07:31→19:16)
[2024-12-02 07:45] LABS: Alanine Aminotransferase 164 U/L (0-31); Albumin Level 2.8 g/dL (3.5-5.0); Alkaline Phosphatase 184 U/L (39-117); Anion Gap 13 (12-20); Aspartate Amino Transferase 124 U/L (5-31); Bilirubin Total 1.4 mg/dL (0.0-1.0); Blood Urea Nitrogen 22 mg/dL (9-16); Calcium 8.4 mg/dL (8.4-10.2); Carbon Dioxide 30 mmol/L (22-29); Chloride 97 mmol/L (96-108); Creatinine Clr Calc Pharmacy 80.1; Estimated Glomerular Filt Rate > 60; Glucose Random 135 mg/dL (60-115); Magnesium 1.9 mg/dL (1.6-2.6); Potassium 3.4 mmol/L (3.3-5.1); Sodium 137 mmol/L (135-145); Total Protein 6.6 g/dL (6.5-8.0)
[2024-12-02 07:50] LABS: B Type Natriuretic Peptide 72 pg/mL (<100)
[2024-12-02 07:56] LABS: Hematocrit 31.6 % (37.0-47.0); Hemoglobin 10.8 g/dl (12.0-16.0); Mean Corpuscular HGB Conc 34.2 g/dl (31.0-35.0); Mean Corpuscular Hemoglobin 33.2 pg (27.0-33.0); Mean Corpuscular Volume 97.2 fL (80.0-98.0); Mean Platelet Volume 11.9 fL (9.4-12.3); Red Blood Count 3.25 X10*6/uL (4.20-5.50); White Blood Count 3.8 X10*3/uL (4.8-10.8)
[2024-12-02 08:02] LABS: Platelet Count 63 X10*3/uL (160-400)
[2024-12-02 08:44] LABS: C Reactive Protein 13.26 mg/dL (< or = 0.50)
[2024-12-02 08:59] LABS: Procalcitonin 3.05 ng/mL
[2024-12-02 09:04] LABS: HBS Num1 0.13 mIU/mL (0-7.99); HBc Num1 0.12 S/CO (0.00-0.79); HBsAGNum1 0.51 S/CO (0.00-0.99); HIV AB/AG Nonreactive (Nonreactive); HIV Num 1 0.05 S/CO (0.00-0.99); Hepatitis B Core Antibody Nonreactive (Nonreactive); Hepatitis B Surface Antigen Negative (Negative); ~HepC Num1 0.11 S/CO (0.00-0.79); ~Hepatitis B Surface Antibody NONREACTIVE (Nonreactive); ~Hepatitis C Antibody Nonreactive (Nonreactive)
[2024-12-02] MEDS: amLODIPine Besylate 2.5 MG TABLET PO (09:09)
[2024-12-02] MEDS: Isosorbide Mononitrate 30 MG TAB.ER.24H PO (09:09)
[2024-12-02] MEDS: Atorvastatin Calcium 40 MG TABLET PO (09:09)
[2024-12-02] MEDS: Sertraline HCL 100 MG TABLET PO (09:10)
[2024-12-02] MEDS: Clopidogrel Bisulfate 75 MG TABLET PO (09:10)
[2024-12-02] MEDS: vancomycin HCL 500 MG in 0.9 % Sodium Chloride 100 ML 110 MG IV ×2 (09:11→21:33)
[2024-12-02] MEDS: Furosemide 20 MG/2 ML VIAL 40 MG IVPUSH (09:11)
[2024-12-02] MEDS: 0.9 % Sodium Chloride Flush 3 ML SYRINGE IVFLUSH ×2 (09:11→15:14)
[2024-12-02] MEDS: buPROPion HCl XL 150 MG TAB.ER.24H PO (09:20)
[2024-12-02] MEDS: Thiamine HCL 100 MG TABLET PO (09:20)
--- NOTE | 2024-12-02 10:00 | P.CONNP_ITS ---
History of Present Illness Reason for Consult Consult date: 12/02/24 Chief Complaint Chief complaint: pneumonia, covid History of Present Illness Narrative: 69 y/o female with coranry artery stenosis, PVD, CKD, atrophic left kidney with left JUSTYN, admitted 11/24 for hypoxia/sepsis, PNA, also with osteomyelitis Nephrology consulted for PICC line clearance for LT antibiotics patient states she continues to have shortness of breath (on supplemental O2), otherwise denies complaints at bedside. Review of Systems Constitutional: Reports fatigue Cardiovascular: Denies chest pain, Denies leg edema and Reports dyspnea Respiratory: Reports dyspnea Gastrointestinal: Denies abdominal pain Genitourinary: Denies hematuria, Denies difficulty voiding, Denies dysuria and Denies flank pain Musculoskeletal: Reports back pain Skin/Breast: Denies rash Endocrine: Reports fatigue PMFSH Past Medical History Medical History (Updated 12/02/24 @ 13:36 by Cehyenne Wise, DNP, [employer]) Osteomyelitis History of stent insertion of renal artery (~07/2024) Stenosis of right carotid artery greater than 50% HTN (hypertension) Personal history of nicotine dependence Acute bacterial sinusitis 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 Arthritis of left hip Disc degeneration, lumbar Lumbar facet arthropathy Stenosis, spinal, lumbar Sacroiliac joint pain Lumbar radicular pain Rhinitis Hypothyroidism Anxiety Tachycardia Cough COPD (chronic obstructive pulmonary disease) Family History Family history: reviewed and not pertinent Surgical History Surgical History S/P vascular bypass (~08/2024) History of carotid endarterectomy (~07/2024) No pertinent past surgical history Social History Social History Household Members: Family Household Members Other:: daughter Housing: House Are you a primary professional healthcare representative to a significant other at home: No Do you presently have visiting nurse or other home services: Yes 75 years or older and lives alone: No Alcohol intake: current Alcohol intake frequency: a few times a week Alcohol type: beer Patient Tobacco Use Status: Former Tobacco user Tobacco use type: Cigarette Cigarette Packs Per Day: 0 e-Cigarette/Vaping Use: Never Used service: No Current occupational status: retired Current occupation: right handed, retired Sexual orientation: Unable to collect Gender identity: Unable to collect Cognitive needs: No Hearing needs: No Vision needs: Yes (wears glasses to drive.) Meds Allergies Allergy/AdvReac Type Severity Reaction Status Date / Time codeine Allergy Unknown Unknown Verified 11/24/24 15:28 Active Medications: Current Medications Acetaminophen (Acetaminophen 325 Mg Tablet) 975 mg PO Q6H PRN PRN Reason: Pain, Mild 1-3,fever,headache Last Admin: 11/29/24 18:11 Dose: 975 mg Albuterol/Ipratropium (Albuterol/Iprat 2.5/0.5mg 3 Ml Ampul.Neb) 3 ml INHALE RQ6H WHILE AWAKE [facility] Last Admin: 12/02/24 07:31 Dose: 3 ml Amlodipine Besylate (Amlodipine Besylate 2.5 Mg Tablet) 2.5 mg PO DAILY [facility]; Protocol Last Admin: 12/02/24 09:09 Dose: 2.5 mg Aspirin (Aspirin Enteric Coated 81 Mg Tablet.Dr) 81 mg PO BEDTIME [facility] Last Admin: 12/01/24 20:20 Dose: 81 mg Atorvastatin Calcium (Atorvastatin Calcium 40 Mg Tablet) 40 mg PO DAILY [facility] Last Admin: 12/02/24 09:09 Dose: 40 mg Benzonatate (Benzonatate 100 Mg Capsule) 100 mg PO TID PRN PRN Reason: Cough Last Admin: 12/01/24 05:47 Dose: 100 mg Bupropion HCl (Bupropion Hcl Xl 150 Mg Tab.Er.24h) 150 mg PO DAILY [facility] Last Admin: 12/02/24 09:20 Dose: 150 mg Calcium Carbonate (Calcium Carbonate 750 Mg Tab.Chew) 750 mg PO Q4H PRN PRN Reason: Heartburn Clopidogrel Bisulfate (Clopidogrel Bisulfate 75 Mg Tablet) 75 mg PO DAILY [facility] Last Admin: 12/02/24 09:10 Dose: 75 mg Docusate Sodium (Docusate Sodium 100 Mg Capsule) 100 mg PO DAILY PRN PRN Reason: Constipation Last Admin: 11/28/24 23:30 Dose: 100 mg Furosemide (Furosemide 20 Mg/2 Ml Vial) 40 mg IVPUSH DAILY [facility]; Protocol Last Admin: 12/02/24 09:11 Dose: 40 mg Gabapentin (Gabapentin 600 Mg Tablet) 1,200 mg PO BEDTIME [facility] Last Admin: 12/01/24 20:20 Dose: 1,200 mg Guaifenesin (Guaifenesin 200 Mg/10 Ml 10 Ml Liquid) 10 ml PO Q6H PRN PRN Reason: Cough Last Admin: 12/01/24 20:18 Dose: 10 ml Guaifenesin/Dextromethorphan (Guaifenesin Dm 600/30 1 Tab Tab.Er.12h) 1 tab PO BID PRN PRN Reason: Cough Last Admin: 11/30/24 20:59 Dose: 1 tab Vancomycin HCl 500 mg/ Sodium (Chloride) 110 mls @ 110 mls/hr IV Q12H [facility] Last Infusion: 12/02/24 10:11 Dose: Infused Isosorbide Mononitrate (Isosorbide Mononitrate 30 Mg Tab.Er.24h) 30 mg PO DAILY [facility]; Protocol Last Admin: 12/02/24 09:09 Dose: 30 mg Levothyroxine Sodium (Levothyroxine Sodium 75 Mcg Tablet) 75 mcg PO DAILY@0600 [facility] Last Admin: 12/02/24 05:35 Dose: 75 mcg Lidocaine (Lidocaine 4 % Patch Adh..Patch) 1 patch TRANSDERMA DAILY [facility]; Protocol Last Admin: 12/02/24 10:43 Dose: Not Given Lorazepam (Lorazepam 0.5 Mg Tablet) 0.5 mg PO BEDTIME PRN PRN Reason: anxiety Last Admin: 12/01/24 20:19 Dose: 0.5 mg Magnesium Hydroxide (Milk Of Magnesia 30 Ml Oral.Susp) 30 ml PO DAILY PRN PRN Reason: Constipation Melatonin (Melatonin 3 Mg Tablet) 6 mg PO BEDTIME PRN PRN Reason: Insomnia Last Admin: 12/01/24 20:19 Dose: 6 mg Meropenem (Meropenem 1 Gm Vial) 1 gm IVPUSH Q8H [facility] Last Admin: 12/02/24 10:49 Dose: 1 gm Methylprednisolone Sodium Succinate (Methylprednisolone Sod Succ 40 Mg/Ml Vial) 40 mg IVPUSH Q12H [facility] Last Admin: 12/02/24 02:40 Dose: 40 mg Morphine Sulfate (Morphine Sulfate 2 Mg/Ml Cartridge) 2 mg IVPUSH Q2H PRN; Protocol PRN Reason: Pain, Severe (Pain Scale 7-10) Ondansetron HCl (Ondansetron Hcl 4 Mg/2 Ml Vial) 4 mg IVPUSH Q8H PRN PRN Reason: Nausea and Vomiting Last Admin: 12/01/24 11:12 Dose: 4 mg Oxycodone HCl (Oxycodone Hcl Immed Release 5 Mg Tablet) 5 mg PO Q4H PRN PRN Reason: Pain, Moderate(Pain Scale 4-6) Last Admin: 12/02/24 09:30 Dose: 5 mg Pantoprazole Sodium (Pantoprazole Sodium 20 Mg Tablet.Dr) 40 mg PO BID@0630,1630 [facility] Last Admin: 12/02/24 05:35 Dose: 40 mg Pharmacy Consult (Consult Rx Vancomycin Dosing) 1 each MISCELLANE DAILY PRN PRN Reason: Consult order Senna (Sennosides 8.6 Mg Tablet) 8.6 mg PO DAILY PRN PRN Reason: Constipation Last Admin: 11/30/24 07:49 Dose: 8.6 mg Sertraline HCl (Sertraline Hcl 100 Mg Tablet) 100 mg PO DAILY [facility] Last Admin: 12/02/24 09:10 Dose: 100 mg Sodium Chloride (0.9 % Sodium Chloride Flush 3 Ml Syringe) 3 ml IVFLUSH QSHIFT [facility] Last Admin: 12/02/24 09:11 Dose: 3 ml Thiamine HCl (Thiamine Hcl 100 Mg Tablet) 100 mg PO DAILY [facility] Last Admin: 12/02/24 09:20 Dose: 100 mg Tramadol HCl (Tramadol Hcl 50 Mg Tablet) 50 mg PO Q6H PRN PRN Reason: Pain, Moderate(Pain Scale 4-6) Last Admin: 12/01/24 08:50 Dose: 50 mg Home Medications ?Medication ?Instructions ?Recorded ?Confirmed ?Last Taken ?Type gabapentin 600 mg tablet 1,200 mg PO BEDTIME 07/12/24 11/24/24 11/23/24 History ipratropium 0.5 mg-albuterol 3 mg 3 ml inhalation Q6H PRN wheezing 07/12/24 11/24/24 Unknown History (2.5 mg base)/3 mL nebulization soln clopidogrel 75 mg tablet 75 mg PO DAILY 08/21/24 11/24/24 11/24/24 History budesonide 0.25 mg/2 mL suspension 0.25 mg inhalation BID PRN 11/24/24 11/24/24 Unknown History for nebulization Shortness Of Breath Or Wheezing bupropion HCl 200 mg tablet,12 hr 200 mg PO DAILY 11/24/24 11/24/24 11/24/24 History sustained-release docusate sodium 100 mg capsule 100 mg PO DAILY PRN Constipation 11/24/24 11/24/24 11/24/24 History (Colace) levothyroxine 75 mcg tablet 75 mcg PO DAILY@0600 11/24/24 11/24/24 11/24/24 History melatonin 10 mg tablet 20 mg PO BEDTIME PRN Sleep 11/24/24 11/24/24 11/24/24 History omeprazole 20 mg capsule,delayed 20 mg PO BID@0630,1630 11/24/24 11/24/24 11/24/24 History release rivaroxaban 2.5 mg tablet (Xarelto) 2.5 mg PO BID 11/24/24 Unknown History sennosides 8.6 mg tablet (senna) 8.6 mg PO DAILY PRN Constipation 11/24/24 11/24/24 11/24/24 History thiamine HCl (vitamin B1) 100 mg 100 mg PO DAILY 11/24/24 11/24/24 11/24/24 History capsule Physical Exam Vital Signs: Last Vital Signs Temp 97.2 F 12/02/24 11:28 Pulse 70 12/02/24 11:28 Resp 20 12/02/24 11:28 BP 120/58 L 12/02/24 11:28 Pulse Ox 94 12/02/24 11:28 O2 Del Method High Flow Nasal Cannula 12/02/24 11:28 O2 Flow Rate 60 12/02/24 11:28 FiO2 60 12/02/24 11:28 BMI result Body Mass Index 25.4 Const General: no acute distress, alert and awake Resp Effort & Inspection: normal respiratory effort Auscultation: crackles Cardio Rate: regular rate Rhythm: regular rhythm Heart sounds: S1 normal heart sound present and S2 normal heart sound present GI Palpation (GI): Soft to palpation and nontender Skin Rashes: no rashes Extrem General: No edema Results Lab Results 12/02/24 06:57 12/02/24 06:57 Lab results: Chemistry 11/30/24 12/01/24 12/02/24 06:45 06:01 06:57 Sodium 136 134 L 137 Potassium 4.1 3.7 3.4 Carbon Dioxide 28 25 30 H BUN 13 22 H Creatinine 0.68 0.66 0.69 Calcium 8.1 L 8.4 Hematology 11/30/24 12/01/24 12/02/24 06:44 06:01 06:57 WBC 4.3 L 6.5 3.8 L Hgb 11.4 L 11.6 L 10.8 L Plt Count 71 L 65 L 63 L Assessment and Plan (1) CKD (chronic kidney disease) stage 3, GFR 30-59 ml/min: Qualifiers: Chronic kidney disease stage 3 subtype: stage 3b (GFR 30-44) Qualified Code(s): N18.32 - Chronic kidney disease, stage 3b Status: Chronic (2) Atrophic kidney: Status: Acute Plan Patient with atrophic kidney and history of multiple AKIs, multiple comorbidities that put patient at higher risk of developing more advanced ckd Would recommend against PICC placement due to potential need for fistula in the future. May place Quiroga catheter if needing central administration of long- term antibiotics. Procedures Date of Service Date of Service: 12/02/24
--- NOTE | 2024-12-02 10:56 | HO.PM.IMPN ---
Subjective Subjective Date of Service: 12/02/24 Interval History: transitioned to HFNC yesterday for worsening hypoxia back pain under better control feels weak Review of Systems Review of Systems: Yes all other systems are reviewed and are negative Physical Exam Vital Signs: Vital Signs: Last Vital Signs Temp 97.0 F 12/02/24 07:10 Pulse 74 12/02/24 07:32 Resp 20 12/02/24 07:32 BP 142/63 H 12/02/24 07:10 Pulse Ox 94 12/02/24 07:10 O2 Del Method High Flow Nasal C annula 12/02/24 07:10 O2 Flow Rate 55 12/02/24 07:10 FiO2 55 12/02/24 07:10 BMI result Body Mass Index 25.4 Gen: in no acute distress HEENT: sclera anicteric, moist mucus membranes Neck: supple Lungs: bilateral inspiratory crackles Heart: regular rate and rhythm, no murmurs Abd: soft, non-tender, non-distended Ext: no edema Skin: warm/well-perfused Neuro: alert and oriented x3, no focal findings Psych: appropriate affect Objective Data Active Medications Acetaminophen (Acetaminophen 325 Mg Tablet) 975 mg PO Q6H PRN PRN Reason: Pain, Mild 1-3,fever,headache Last Admin: 11/29/24 18:11 Dose: 975 mg Documented By: JOSIE Albuterol/Ipratropium (Albuterol/Iprat 2.5/0.5mg 3 Ml Ampul.Neb) 3 ml INHALE RQ6H WHILE AWAKE [facility] Last Admin: 12/02/24 07:31 Dose: 3 ml Documented By: JASMINA Amlodipine Besylate (Amlodipine Besylate 2.5 Mg Tablet) 2.5 mg PO DAILY [facility]; Protocol Last Admin: 12/02/24 09:09 Dose: 2.5 mg Documented By: ABBEY Aspirin (Aspirin Enteric Coated 81 Mg Tablet.) 81 mg PO BEDTIME [facility] Last Admin: 12/01/24 20:20 Dose: 81 mg Documented By: JU Atorvastatin Calcium (Atorvastatin Calcium 40 Mg Tablet) 40 mg PO DAILY [facility] Last Admin: 12/02/24 09:09 Dose: 40 mg Documented By: ABBEY Benzonatate (Benzonatate 100 Mg Capsule) 100 mg PO TID PRN PRN Reason: Cough Last Admin: 12/01/24 05:47 Dose: 100 mg Documented By: LAI Bupropion HCl (Bupropion Hcl Xl 150 Mg Tab.Er.24h) 150 mg PO DAILY [facility] Last Admin: 12/02/24 09:20 Dose: 150 mg Documented By: ABBEY Calcium Carbonate (Calcium Carbonate 750 Mg Tab.Chew) 750 mg PO Q4H PRN PRN Reason: Heartburn Clopidogrel Bisulfate (Clopidogrel Bisulfate 75 Mg Tablet) 75 mg PO DAILY [facility] Last Admin: 12/02/24 09:10 Dose: 75 mg Documented By: ABBEY Docusate Sodium (Docusate Sodium 100 Mg Capsule) 100 mg PO DAILY PRN PRN Reason: Constipation Last Admin: 11/28/24 23:30 Dose: 100 mg Documented By: CLARISA Comments: pt requested Furosemide (Furosemide 20 Mg/2 Ml Vial) 40 mg IVPUSH DAILY [facility]; Protocol Last Admin: 12/02/24 09:11 Dose: 40 mg Documented By: ABBEY Gabapentin (Gabapentin 600 Mg Tablet) 1,200 mg PO BEDTIME [facility] Last Admin: 12/01/24 20:20 Dose: 1,200 mg Documented By: JU Guaifenesin (Guaifenesin 200 Mg/10 Ml 10 Ml Liquid) 10 ml PO Q6H PRN PRN Reason: Cough Last Admin: 12/01/24 20:18 Dose: 10 ml Documented By: JU Guaifenesin/Dextromethorphan (Guaifenesin Dm 600/30 1 Tab Tab.Er.12h) 1 tab PO BID PRN PRN Reason: Cough Last Admin: 11/30/24 20:59 Dose: 1 tab Documented By: LAI Vancomycin HCl 500 mg/ Sodium (Chloride) 110 mls @ 110 mls/hr IV Q12H [facility] Last Admin: 12/02/24 09:11 Dose: 110 mls/hr Documented By: ABBEY Isosorbide Mononitrate (Isosorbide Mononitrate 30 Mg Tab.Er.24h) 30 mg PO DAILY [facility]; Protocol Last Admin: 12/02/24 09:09 Dose: 30 mg Documented By: ABBEY Levothyroxine Sodium (Levothyroxine Sodium 75 Mcg Tablet) 75 mcg PO DAILY@0600 [facility] Last Admin: 12/02/24 05:35 Dose: 75 mcg Documented By: JU Lidocaine (Lidocaine 4 % Patch Adh..Patch) 1 patch TRANSDERMA DAILY [facility]; Protocol Last Admin: 12/02/24 10:43 Dose: Not Given Documented By: ABBEY Non-Admin Reason: removed, not applied Lorazepam (Lorazepam 0.5 Mg Tablet) 0.5 mg PO BEDTIME PRN PRN Reason: anxiety Last Admin: 12/01/24 20:19 Dose: 0.5 mg Documented By: JU Magnesium Hydroxide (Milk Of Magnesia 30 Ml Oral.Susp) 30 ml PO DAILY PRN PRN Reason: Constipation Melatonin (Melatonin 3 Mg Tablet) 6 mg PO BEDTIME PRN PRN Reason: Insomnia Last Admin: 12/01/24 20:19 Dose: 6 mg Documented By: JU Meropenem (Meropenem 1 Gm Vial) 1 gm IVPUSH Q8H [facility] Last Admin: 12/02/24 10:49 Dose: 1 gm Documented By: ABBEY Methylprednisolone Sodium Succinate (Methylprednisolone Sod Succ 40 Mg/Ml Vial) 40 mg IVPUSH Q12H [facility] Last Admin: 12/02/24 02:40 Dose: 40 mg Documented By: JU Morphine Sulfate (Morphine Sulfate 2 Mg/Ml Cartridge) 2 mg IVPUSH Q2H PRN; Protocol PRN Reason: Pain, Severe (Pain Scale 7-10) Ondansetron HCl (Ondansetron Hcl 4 Mg/2 Ml Vial) 4 mg IVPUSH Q8H PRN PRN Reason: Nausea and Vomiting Last Admin: 12/01/24 11:12 Dose: 4 mg Documented By: JERED Oxycodone HCl (Oxycodone Hcl Immed Release 5 Mg Tablet) 5 mg PO Q4H PRN PRN Reason: Pain, Moderate(Pain Scale 4-6) Last Admin: 12/02/24 09:30 Dose: 5 mg Documented By: ABBEY Pantoprazole Sodium (Pantoprazole Sodium 20 Mg Tablet.) 40 mg PO BID@0630,1630 [facility] Last Admin: 12/02/24 05:35 Dose: 40 mg Documented By: JU Pharmacy Consult (Consult Rx Vancomycin Dosing) 1 each MISCELLANE DAILY PRN PRN Reason: Consult order Senna (Sennosides 8.6 Mg Tablet) 8.6 mg PO DAILY PRN PRN Reason: Constipation Last Admin: 11/30/24 07:49 Dose: 8.6 mg Documented By: JERED Sertraline HCl (Sertraline Hcl 100 Mg Tablet) 100 mg PO DAILY [facility] Last Admin: 12/02/24 09:10 Dose: 100 mg Documented By: ABBEY Sodium Chloride (0.9 % Sodium Chloride Flush 3 Ml Syringe) 3 ml IVFLUSH QSHIFT [facility] Last Admin: 12/02/24 09:11 Dose: 3 ml Documented By: BABEY Thiamine HCl (Thiamine Hcl 100 Mg Tablet) 100 mg PO DAILY [facility] Last Admin: 12/02/24 09:20 Dose: 100 mg Documented By: ABBEY Tramadol HCl (Tramadol Hcl 50 Mg Tablet) 50 mg PO Q6H PRN PRN Reason: Pain, Moderate(Pain Scale 4-6) Last Admin: 12/01/24 08:50 Dose: 50 mg Documented By: JERED Labs 12/02/24 06:57 12/02/24 06:57 Labs: Laboratory Results - last 24 hr 12/01/24 12/01/24 12/02/24 13:55 17:20 06:57 MCV 97.2 MCH 33.2 H MCHC 34.2 RDW 15.0 Plt Count 63 L MPV 11.9 Absolute Nucleated RBC 0.000 Nucleated RBC % (auto) 0.0 Anion Gap 13 Estim Creat Clear Calc 80.1 Estimated GFR > 60 Random Glucose 135 H Calcium 8.4 Magnesium 1.9 Total Bilirubin 1.4 H AST 124 H ALT 164 H Alkaline Phosphatase 184 H C-Reactive Protein 13.26 H B-Natriuretic Peptide 87 72 Total Protein 6.6 Albumin 2.8 L Procalcitonin 3.05 Random Vancomycin 21.7 H Hep Bs Antigen Negative Hep Bs Antibody NONREACTIVE Hep B Core Total Ab Nonreactive Hepatitis C Ab (EIA) Nonreactive HIV 1&2 Ab/P24 Ag 4thGn Nonreactive CXR 12/01/24 Stable moderate bilateral pneumonia. Assessment and Plan (1) Multifocal pneumonia: Status: Acute (2) COPD with acute exacerbation: Status: Acute (3) Cough: Status: Acute Plan d9 for 69yo F with carotid stenosis s/p endarterectomy, PVD s/p bypass + subclavian stenting, CKD3, JUSTYN, L3-L5 decompression surgery, hypothyroidism, mood disorder, and recent Streptococcus mutans bacteremia treated with amoxicillin, also recent small subacute hematoma and delirium presented with dyspnea and cough, admitted for hypoxia and sepsis due to Covid-19 + pneumonia found to have osteomyelitis/discitis L5/S1 osteomyelitis multifocal pneumonia - vancomycin + ertapenem [meropenem while hospitalized] 6 wk per ID, 11/24-01/05, BCx clear, PICC ordered but needs Nephrology clearance given CKD3 - pain control with lidocaine patch, oxycodone, IV morphine acute hypoxic respiratory failure due to pneumonia, Covid-19, and COPD exacerbation - changed prednisone back to IV methylprednisolone; continue nebs - CTA negative for PE 11/24 - on daily IV furosemide; TTE pending - Pulmonology consult - supplemental O2, wean as tolerated; currently on HFNC 50 Lpm 60% fiO2 thrombocytopenia - suspect due to sepsis, possibly from cefepime as well which has been stopped and changed to meropenem; continue to monitor CBC daily elevated LFTs - suspect due to sepsis; improving; continue to monitor; hepatitis serologies negative carotid stenosis PVD - resume ASA + clopidogrel hypoK - repleted acute lactic acidosis - due to hypoxia + bronchodilators distended gallbladder on CT - no abd pain, HIDA negative anemia - likely due to chronic inflammation; transfused 2u pRBCs on 11/28 and H+H improved CKD3 - SCr at baseline hypothyroidism - continue LT4 HTN CAD - Imdur, furosemide, amlodipine mood disorder - bupropion, sertraline, lorazepam VTE ppx - SCDs, no heparin due to thrombocytopenia dispo - STR In my clinical judgment, the patient requires continued inpatient hospitalization for the following reasons: hypoxia, IV ABX Total time managing care of this patient today: 55 minutes. Quality Stroke Does the patient have a stroke diagnosis?: No VTE Prior VTE?: No VTE Risk Level:: Medical - moderate - high VTE Device Contraindication: Treatment Not Indicated VTE Drug Contraindication: N/A - Med Ordered
--- NOTE | 2024-12-02 12:24 | MHC.CLN ---
F/U PO INTAKE 50% AVERAGE DIET RX: REGULAR RECEIVING ENSURE BID TO INCREASE KCALS R/T ACUTE ILLNESS SUPP TO PROVIDE 700KCALS, 40G PROTEIN MONITOR PO INTAKE AND ENCOURAGE SUPPLEMENTS
[2024-12-02] MEDS: Morphine Sulfate 2 MG/ML CARTRIDGE IVPUSH (15:13)
--- NOTE | 2024-12-02 15:41 | MHC.CM.PN ---
Patient is not medically cleared to discharge. Nephrology consulted for line placement recommendation. A Quiroga is recommended no PICC line. DP pending a PT eval. Home with services vs PVR via BLS.
--- NOTE | 2024-12-02 16:46 | PM.CNPUL ---
History of Present Illness History of Present Illness Consult date: 12/02/24 Chief complaint: pneumonia, covid Narrative: 69-year-old lady, former 40+ pack-year smoker, quit 2023 with underlying COPD, followed by Dr. Alvarenga, admitted on 11/24/2024 with dyspnea and hypoxia secondary to COVID pneumonia, now with likely bacterial superinfection, still will significant supplemental oxygen requirements, now on high-flow nasal cannula. Review of Systems Cardiovascular: Cardiovascular: Denies chest pain, Reports dyspnea, Denies orthopnea and Denies paroxysmal nocturnal dyspnea Respiratory: Respiratory: Reports cough, Denies excessive phlegm production, Reports dyspnea and Denies wheezing Allergic/Immunologic: Allergic/Immunologic: Denies wheezing PMFSH Past Medical History Medical History (Updated 12/02/24 @ 13:36 by Cheyenne Wise, DNP, [employer]) Osteomyelitis History of stent insertion of renal artery (~07/2024) Stenosis of right carotid artery greater than 50% HTN (hypertension) Personal history of nicotine dependence Acute bacterial sinusitis 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 Arthritis of left hip Disc degeneration, lumbar Lumbar facet arthropathy Stenosis, spinal, lumbar Sacroiliac joint pain Lumbar radicular pain Rhinitis Hypothyroidism Anxiety Tachycardia Cough COPD (chronic obstructive pulmonary disease) Family History Family history: reviewed and not pertinent Surgical History Surgical History S/P vascular bypass (~08/2024) History of carotid endarterectomy (~07/2024) No pertinent past surgical history Social History Social History Household Members: Family Household Members Other:: daughter Housing: House Are you a primary critical care transport nurse to a significant other at home: No Do you presently have visiting nurse or other home services: Yes 75 years or older and lives alone: No Alcohol intake: current Alcohol intake frequency: a few times a week Alcohol type: beer Patient Tobacco Use Status: Former Tobacco user Tobacco use type: Cigarette Cigarette Packs Per Day: 0 e-Cigarette/Vaping Use: Never Used service: No Current occupational status: retired Current occupation: right handed, retired Sexual orientation: Unable to collect Gender identity: Unable to collect Cognitive needs: No Hearing needs: No Vision needs: Yes (wears glasses to drive.) Meds Allergies Allergy/AdvReac Type Severity Reaction Status Date / Time codeine Allergy Unknown Unknown Verified 11/24/24 15:28 Active Medications: Current Medications Acetaminophen (Acetaminophen 325 Mg Tablet) 975 mg PO Q6H PRN PRN Reason: Pain, Mild 1-3,fever,headache Last Admin: 11/29/24 18:11 Dose: 975 mg Albuterol/Ipratropium (Albuterol/Iprat 2.5/0.5mg 3 Ml Ampul.Neb) 3 ml INHALE RQ6H WHILE AWAKE BERTHA Last Admin: 12/02/24 13:33 Dose: 3 ml Amlodipine Besylate (Amlodipine Besylate 2.5 Mg Tablet) 2.5 mg PO DAILY [facility]; Protocol Last Admin: 12/02/24 09:09 Dose: 2.5 mg Aspirin (Aspirin Enteric Coated 81 Mg Tablet.Dr) 81 mg PO BEDTIME BERTHA Last Admin: 12/01/24 20:20 Dose: 81 mg Atorvastatin Calcium (Atorvastatin Calcium 40 Mg Tablet) 40 mg PO DAILY [facility] Last Admin: 12/02/24 09:09 Dose: 40 mg Benzonatate (Benzonatate 100 Mg Capsule) 100 mg PO TID PRN PRN Reason: Cough Last Admin: 12/01/24 05:47 Dose: 100 mg Bupropion HCl (Bupropion Hcl Xl 150 Mg Tab.Er.24h) 150 mg PO DAILY BERTHA Last Admin: 12/02/24 09:20 Dose: 150 mg Calcium Carbonate (Calcium Carbonate 750 Mg Tab.Chew) 750 mg PO Q4H PRN PRN Reason: Heartburn Clopidogrel Bisulfate (Clopidogrel Bisulfate 75 Mg Tablet) 75 mg PO DAILY [facility] Last Admin: 12/02/24 09:10 Dose: 75 mg Docusate Sodium (Docusate Sodium 100 Mg Capsule) 100 mg PO DAILY PRN PRN Reason: Constipation Last Admin: 11/28/24 23:30 Dose: 100 mg Furosemide (Furosemide 20 Mg/2 Ml Vial) 40 mg IVPUSH DAILY [facility]; Protocol Last Admin: 12/02/24 09:11 Dose: 40 mg Gabapentin (Gabapentin 600 Mg Tablet) 1,200 mg PO BEDTIME BERTHA Last Admin: 12/01/24 20:20 Dose: 1,200 mg Guaifenesin (Guaifenesin 200 Mg/10 Ml 10 Ml Liquid) 10 ml PO Q6H PRN PRN Reason: Cough Last Admin: 12/01/24 20:18 Dose: 10 ml Guaifenesin/Dextromethorphan (Guaifenesin Dm 600/30 1 Tab Tab.Er.12h) 1 tab PO BID PRN PRN Reason: Cough Last Admin: 11/30/24 20:59 Dose: 1 tab Vancomycin HCl 500 mg/ Sodium (Chloride) 110 mls @ 110 mls/hr IV Q12H [facility] Last Infusion: 12/02/24 10:11 Dose: Infused Isosorbide Mononitrate (Isosorbide Mononitrate 30 Mg Tab.Er.24h) 30 mg PO DAILY [facility]; Protocol Last Admin: 12/02/24 09:09 Dose: 30 mg Levothyroxine Sodium (Levothyroxine Sodium 75 Mcg Tablet) 75 mcg PO DAILY@0600 [facility] Last Admin: 12/02/24 05:35 Dose: 75 mcg Lidocaine (Lidocaine 4 % Patch Adh..Patch) 1 patch TRANSDERMA DAILY [facility]; Protocol Last Admin: 12/02/24 10:43 Dose: Not Given Lorazepam (Lorazepam 0.5 Mg Tablet) 0.5 mg PO BEDTIME PRN PRN Reason: anxiety Last Admin: 12/01/24 20:19 Dose: 0.5 mg Magnesium Hydroxide (Milk Of Magnesia 30 Ml Oral.Susp) 30 ml PO DAILY PRN PRN Reason: Constipation Melatonin (Melatonin 3 Mg Tablet) 6 mg PO BEDTIME PRN PRN Reason: Insomnia Last Admin: 12/01/24 20:19 Dose: 6 mg Meropenem (Meropenem 1 Gm Vial) 1 gm IVPUSH Q8H [facility] Last Admin: 12/02/24 10:49 Dose: 1 gm Methylprednisolone Sodium Succinate (Methylprednisolone Sod Succ 40 Mg/Ml Vial) 40 mg IVPUSH Q12H [facility] Last Admin: 12/02/24 15:14 Dose: 40 mg Morphine Sulfate (Morphine Sulfate 2 Mg/Ml Cartridge) 2 mg IVPUSH Q2H PRN; Protocol PRN Reason: Pain, Severe (Pain Scale 7-10) Last Admin: 12/02/24 15:13 Dose: 2 mg Ondansetron HCl (Ondansetron Hcl 4 Mg/2 Ml Vial) 4 mg IVPUSH Q8H PRN PRN Reason: Nausea and Vomiting Last Admin: 12/01/24 11:12 Dose: 4 mg Oxycodone HCl (Oxycodone Hcl Immed Release 5 Mg Tablet) 5 mg PO Q4H PRN PRN Reason: Pain, Moderate(Pain Scale 4-6) Last Admin: 12/02/24 09:30 Dose: 5 mg Pantoprazole Sodium (Pantoprazole Sodium 20 Mg Tablet.Dr) 40 mg PO BID@0630,1630 [facility] Last Admin: 12/02/24 16:10 Dose: 40 mg Pharmacy Consult (Consult Rx Vancomycin Dosing) 1 each MISCELLANE DAILY PRN PRN Reason: Consult order Senna (Sennosides 8.6 Mg Tablet) 8.6 mg PO DAILY PRN PRN Reason: Constipation Last Admin: 11/30/24 07:49 Dose: 8.6 mg Sertraline HCl (Sertraline Hcl 100 Mg Tablet) 100 mg PO DAILY [facility] Last Admin: 12/02/24 09:10 Dose: 100 mg Sodium Chloride (0.9 % Sodium Chloride Flush 3 Ml Syringe) 3 ml IVFLUSH QSHIFT [facility] Last Admin: 12/02/24 15:14 Dose: 3 ml Thiamine HCl (Thiamine Hcl 100 Mg Tablet) 100 mg PO DAILY [facility] Last Admin: 12/02/24 09:20 Dose: 100 mg Tramadol HCl (Tramadol Hcl 50 Mg Tablet) 50 mg PO Q6H PRN PRN Reason: Pain, Moderate(Pain Scale 4-6) Last Admin: 12/01/24 08:50 Dose: 50 mg Home Medications ?Medication ?Instructions ?Recorded ?Confirmed ?Last Taken ?Type gabapentin 600 mg tablet 1,200 mg PO BEDTIME 07/12/24 11/24/24 11/23/24 History ipratropium 0.5 mg-albuterol 3 mg 3 ml inhalation Q6H PRN wheezing 07/12/24 11/24/24 Unknown History (2.5 mg base)/3 mL nebulization soln clopidogrel 75 mg tablet 75 mg PO DAILY 08/21/24 11/24/24 11/24/24 History budesonide 0.25 mg/2 mL suspension 0.25 mg inhalation BID PRN 11/24/24 11/24/24 Unknown History for nebulization Shortness Of Breath Or Wheezing bupropion HCl 200 mg tablet,12 hr 200 mg PO DAILY 11/24/24 11/24/24 11/24/24 History sustained-release docusate sodium 100 mg capsule 100 mg PO DAILY PRN Constipation 11/24/24 11/24/24 11/24/24 History (Colace) levothyroxine 75 mcg tablet 75 mcg PO DAILY@0600 11/24/24 11/24/24 11/24/24 History melatonin 10 mg tablet 20 mg PO BEDTIME PRN Sleep 11/24/24 11/24/24 11/24/24 History omeprazole 20 mg capsule,delayed 20 mg PO BID@0630,1630 11/24/24 11/24/24 11/24/24 History release rivaroxaban 2.5 mg tablet (Xarelto) 2.5 mg PO BID 11/24/24 Unknown History sennosides 8.6 mg tablet (senna) 8.6 mg PO DAILY PRN Constipation 11/24/24 11/24/24 11/24/24 History thiamine HCl (vitamin B1) 100 mg 100 mg PO DAILY 11/24/24 11/24/24 11/24/24 History capsule Physical Exam Vital Signs: Vital Signs: Last Vital Signs Temp 97.2 F 12/02/24 16:00 Pulse 76 12/02/24 16:00 Resp 20 12/02/24 16:00 BP 134/60 12/02/24 16:00 Pulse Ox 94 12/02/24 16:00 O2 Del Method High Flow Nasal C annula 12/02/24 16:00 O2 Flow Rate 45 12/02/24 16:00 FiO2 65 12/02/24 16:00 BMI result Body Mass Index 25.4 Const: General: no acute distress, alert and awake Eyes: Sclerae: sclerae normal EOM: EOMs intact bilaterally Neck: Neck: Yes no lymphadenopathy, Yes trachea midline and Yes supple Resp: Effort & Inspection: tachypneic Auscultation: crackles (Bilateral) Cardio: Rate: regular rate Rhythm: regular rhythm Heart sounds: no gallops, no murmurs and no rubs GI: Palpation (GI): Soft to palpation and Other GI palpation findings present ( Nontender) Auscultation: normal bowel sounds Extrem: General: Yes no pedal edema, No clubbing and No cyanosis Results Laboratory Findings 12/02/24 06:57 12/02/24 06:57 ABG, PT/INR, D-dimer: PT/INR, D-dimer PT 13.6 SEC (10.9-12.4) H 11/30/24 13:29 INR 1.2 (0.9-1.1) H 11/30/24 13:29 Abnormal lab findings: Abnormal Labs 11/24/24 11/24/24 11/24/24 15:42 15:51 17:56 WBC 1.8 L RBC 2.57 L Hgb 8.8 L Hct 27.0 L MCV 105.1 H MCH 34.2 H RDW 17.9 H Plt Count 121 L D Absolute Nucleated RBC Nucleated RBC % (auto) Neutrophils % (Manual) Band Neutrophils % 15 H Lymphocytes % (Manual) 7 L Abs Neuts (Manual) 1.3 L Lymphocytes # (Manual) 0.1 L Nucleated RBCs ESR PT 12.9 H INR VBG pH 7.44 H VBG HCO3 18 L Sodium Potassium Chloride Carbon Dioxide 19 L Anion Gap BUN 20 H Random Glucose Haptoglobin Lactic Acid 3.2 H* Lactic Acid F/U @ 2Hr 3.9 H* Lactic Acid F/U @ 4Hr Calcium 8.1 L D Total Bilirubin Direct Bilirubin 0.6 H AST ALT Alkaline Phosphatase Lactate Dehydrogenase C-Reactive Protein B-Natriuretic Peptide 370 H Total Protein Albumin 3.0 L Nasal S. aureus Screen Random Vancomycin SARS-CoV-2 RNA (RT-PCR) POSITIVE A Crossmatch 11/24/24 11/25/24 11/25/24 20:41 04:42 12:20 WBC 2.1 L RBC 2.57 L Hgb 8.8 L Hct 27.4 L MCV 106.6 H MCH 34.2 H RDW 17.6 H Plt Count 100 L Absolute Nucleated RBC Nucleated RBC % (auto) Neutrophils % (Manual) Band Neutrophils % 28 H Lymphocytes % (Manual) 7 L Abs Neuts (Manual) 1.8 L Lymphocytes # (Manual) 0.1 L Nucleated RBCs ESR 116 H PT INR VBG pH VBG HCO3 Sodium Potassium Chloride 111 H Carbon Dioxide 18 L Anion Gap BUN 18 H Random Glucose 122 H Haptoglobin Lactic Acid Lactic Acid F/U @ 2Hr Lactic Acid F/U @ 4Hr 4.2 H* Calcium 7.8 L Total Bilirubin Direct Bilirubin AST ALT Alkaline Phosphatase Lactate Dehydrogenase C-Reactive Protein 30.12 H B-Natriuretic Peptide Total Protein Albumin Nasal S. aureus Screen POSITIVE A Random Vancomycin SARS-CoV-2 RNA (RT-PCR) Crossmatch 11/26/24 11/26/24 11/27/24 06:32 20:02 06:54 WBC 2.7 L RBC 2.61 L Hgb 8.9 L Hct 26.7 L MCV 102.3 H MCH 34.1 H RDW 17.5 H Plt Count 111 L Absolute Nucleated RBC 0.020 H Nucleated RBC % (auto) 0.7 H Neutrophils % (Manual) 78 H Band Neutrophils % Lymphocytes % (Manual) 9 L Abs Neuts (Manual) Lymphocytes # (Manual) 0.2 L Nucleated RBCs 3 H ESR PT INR VBG pH VBG HCO3 Sodium Potassium Chloride Carbon Dioxide Anion Gap BUN 19 H 17 H Random Glucose 118 H Haptoglobin Lactic Acid Lactic Acid F/U @ 2Hr Lactic Acid F/U @ 4Hr Calcium 8.3 L Total Bilirubin Direct Bilirubin AST ALT Alkaline Phosphatase Lactate Dehydrogenase C-Reactive Protein B-Natriuretic Peptide Total Protein Albumin Nasal S. aureus Screen Random Vancomycin 9.7 L SARS-CoV-2 RNA (RT-PCR) Crossmatch 11/27/24 11/28/24 11/28/24 06:55 06:41 12:31 WBC 2.3 L 1.7 L RBC 2.20 L 2.08 L Hgb 7.6 L 7.2 L Hct 22.2 L 20.7 L* MCV 100.9 H 99.5 H MCH 34.5 H 34.6 H RDW 16.6 H Plt Count 92 L 86 L Absolute Nucleated RBC 0.040 H Nucleated RBC % (auto) 2.4 H Neutrophils % (Manual) 88 H Band Neutrophils % 0 L Lymphocytes % (Manual) 7 L Abs Neuts (Manual) Lymphocytes # (Manual) 0.2 L Nucleated RBCs ESR PT INR VBG pH VBG HCO3 Sodium Potassium 2.9 L* Chloride Carbon Dioxide Anion Gap BUN Random Glucose Haptoglobin Lactic Acid Lactic Acid F/U @ 2Hr Lactic Acid F/U @ 4Hr Calcium 8.2 L Total Bilirubin Direct Bilirubin AST ALT Alkaline Phosphatase Lactate Dehydrogenase C-Reactive Protein B-Natriuretic Peptide Total Protein Albumin Nasal S. aureus Screen Random Vancomycin SARS-CoV-2 RNA (RT-PCR) Crossmatch See Detail 11/28/24 11/29/24 11/29/24 19:55 06:24 08:59 WBC 3.9 L RBC 3.34 L D Hgb 11.3 L D Hct 32.4 L D MCV MCH 33.8 H RDW 17.2 H Plt Count 81 L Absolute Nucleated RBC 0.020 H Nucleated RBC % (auto) 0.5 H Neutrophils % (Manual) Band Neutrophils % Lymphocytes % (Manual) Abs Neuts (Manual) Lymphocytes # (Manual) Nucleated RBCs ESR PT INR VBG pH VBG HCO3 Sodium Potassium Chloride Carbon Dioxide Anion Gap BUN Random Glucose Haptoglobin 310 H Lactic Acid Lactic Acid F/U @ 2Hr Lactic Acid F/U @ 4Hr Calcium Total Bilirubin 3.1 H Direct Bilirubin 2.3 H AST 449 H ALT 409 H Alkaline Phosphatase 197 H Lactate Dehydrogenase 410 H C-Reactive Protein B-Natriuretic Peptide Total Protein 6.3 L Albumin 2.7 L Nasal S. aureus Screen Random Vancomycin 14.7 L SARS-CoV-2 RNA (RT-PCR) Crossmatch 11/29/24 11/30/24 11/30/24 14:33 06:44 06:45 WBC 4.3 L RBC 3.42 L Hgb 11.4 L Hct 33.6 L MCV 98.2 H MCH 33.3 H RDW 16.6 H Plt Count 71 L Absolute Nucleated RBC Nucleated RBC % (auto) Neutrophils % (Manual) Band Neutrophils % Lymphocytes % (Manual) Abs Neuts (Manual) Lymphocytes # (Manual) Nucleated RBCs ESR PT INR VBG pH VBG HCO3 Sodium Potassium Chloride Carbon Dioxide Anion Gap 11 L BUN Random Glucose Haptoglobin Lactic Acid Lactic Acid F/U @ 2Hr Lactic Acid F/U @ 4Hr Calcium Total Bilirubin Direct Bilirubin AST ALT Alkaline Phosphatase Lactate Dehydrogenase C-Reactive Protein B-Natriuretic Peptide Total Protein Albumin Nasal S. aureus Screen Random Vancomycin 14.8 L SARS-CoV-2 RNA (RT-PCR) Crossmatch 11/30/24 12/01/24 12/01/24 13:29 06:01 13:55 WBC RBC 3.48 L Hgb 11.6 L Hct 33.7 L MCV MCH 33.3 H RDW Plt Count 65 L Absolute Nucleated RBC Nucleated RBC % (auto) Neutrophils % (Manual) Band Neutrophils % Lymphocytes % (Manual) Abs Neuts (Manual) Lymphocytes # (Manual) Nucleated RBCs ESR PT 13.6 H INR 1.2 H VBG pH VBG HCO3 Sodium 134 L Potassium Chloride Carbon Dioxide Anion Gap BUN Random Glucose Haptoglobin Lactic Acid Lactic Acid F/U @ 2Hr Lactic Acid F/U @ 4Hr Calcium 8.1 L Total Bilirubin 1.8 H 1.7 H Direct Bilirubin 1.2 H AST 144 H 115 H ALT 245 H 191 H Alkaline Phosphatase 187 H 181 H Lactate Dehydrogenase C-Reactive Protein B-Natriuretic Peptide Total Protein Albumin 2.9 L 2.8 L Nasal S. aureus Screen Random Vancomycin 21.7 H SARS-CoV-2 RNA (RT-PCR) Crossmatch 12/02/24 06:57 WBC 3.8 L RBC 3.25 L Hgb 10.8 L Hct 31.6 L MCV MCH 33.2 H RDW Plt Count 63 L Absolute Nucleated RBC Nucleated RBC % (auto) Neutrophils % (Manual) Band Neutrophils % Lymphocytes % (Manual) Abs Neuts (Manual) Lymphocytes # (Manual) Nucleated RBCs ESR PT INR VBG pH VBG HCO3 Sodium Potassium Chloride Carbon Dioxide 30 H Anion Gap BUN 22 H Random Glucose 135 H Haptoglobin Lactic Acid Lactic Acid F/U @ 2Hr Lactic Acid F/U @ 4Hr Calcium Total Bilirubin 1.4 H Direct Bilirubin AST 124 H ALT 164 H Alkaline Phosphatase 184 H Lactate Dehydrogenase C-Reactive Protein 13.26 H B-Natriuretic Peptide Total Protein Albumin 2.8 L Nasal S. aureus Screen Random Vancomycin SARS-CoV-2 RNA (RT-PCR) Crossmatch Microbiology: Microbiology 11/24/24 15:47 Blood - Venous Blood Culture - Final No growth after 5 days. 11/24/24 15:42 Blood - Venous Blood Culture - Final No growth after 5 days. Assessment and Plan (1) COPD (chronic obstructive pulmonary disease): Qualifiers: COPD type: emphysema Emphysema type: panlobular Qualified Code(s): J43.1 - Panlobular emphysema Status: Acute (2) Pneumonia: Status: Acute (3) Acute hypoxic respiratory failure: Status: Acute (4) Multifocal pneumonia: Status: Acute Plan Impression: 69-year-old lady with underlying COPD admitted with dyspnea and hypoxia secondary to COVID pneumonia, now with likely bacterial superinfection, still requiring high-flow nasal cannula to maintain normal oximetry. CTA negative for pulmonary embolism on admission, but demonstrating multifocal pneumonia with left-sided consolidation. Recommendations: Agree with current therapeutic regimen consisting of empiric antibiotics and systemic glucocorticoids. Continue to titrate off high-flow nasal cannula as tolerated. Procedures Date of Service Date of Service: 12/02/24
[2024-12-02 18:47] LABS: Vancomycin Random 19.9 mcg/mL (15-20)
[2024-12-02] MEDS: LORazepam 0.5 MG TABLET PO (21:35)
[2024-12-02] MEDS: Gabapentin 600 MG TABLET 1200 MG PO (21:35)
[2024-12-02] MEDS: guaiFENesin DM 600/30 1 TAB TAB.ER.12H PO (21:35)
[2024-12-02] MEDS: Melatonin 3 MG TABLET 6 MG PO (21:35)
[2024-12-02] MEDS: Docusate Sodium 100 MG CAPSULE PO (21:36)
[2024-12-02] MEDS: Aspirin Enteric Coated 81 MG TABLET.DR PO (21:36)
[2024-12-02] MEDS: Sennosides 8.6 MG TABLET PO (21:39)
[2024-12-03] VITALS (13 sets, daily range): BP systolic 112–156; BP diastolic 54–76; PULSE 65–83; RESP 17–22; TEMP 36.2–37.2; O2SAT 84–96
[2024-12-03] MEDS: methylPREDNISolone Sod Succ 40 MG/ML VIAL IVPUSH ×2 (01:56→15:00)
[2024-12-03] MEDS: Meropenem 1 GM VIAL IVPUSH ×3 (01:56→18:32)
[2024-12-03] MEDS: 0.9 % Sodium Chloride Flush 3 ML SYRINGE IVFLUSH ×4 (01:57→20:05)
[2024-12-03 06:28] LABS: Hematocrit 32.2 % (37.0-47.0); Hemoglobin 11.1 g/dl (12.0-16.0); Mean Corpuscular HGB Conc 34.5 g/dl (31.0-35.0); Mean Corpuscular Hemoglobin 33.1 pg (27.0-33.0); Mean Corpuscular Volume 96.1 fL (80.0-98.0); Mean Platelet Volume 11.7 fL (9.4-12.3); Red Blood Count 3.35 X10*6/uL (4.20-5.50); Red Cell Distribution Width 14.6 % (11.0-16.0); White Blood Count 5.4 X10*3/uL (4.8-10.8)
[2024-12-03 06:29] LABS: VBG Base Excess 9.2 mmol/L; VBG HCO3 33 mmol/L (22-26); VBG pCO2 44 mmHg; VBG pH 7.48 (7.32-7.43); VBG pO2 78 mmHg
[2024-12-03 06:30] LABS: Platelet Count 79 X10*3/uL (160-400); Venous Blood Gas Refer to POC result
[2024-12-03] MEDS: oxyCODONE HCl Immed Release 5 MG TABLET PO ×3 (06:48→20:03)
[2024-12-03] MEDS: Pantoprazole Sodium 20 MG TABLET.DR 40 MG PO ×2 (06:48→16:24)
[2024-12-03] MEDS: Levothyroxine Sodium 75 MCG TABLET PO (06:48)
[2024-12-03] MEDS: Milk of Magnesia 30 ML ORAL.SUSP PO (06:49)
[2024-12-03 06:53] LABS: Alanine Aminotransferase 354 U/L (0-31); Albumin Level 2.8 g/dL (3.5-5.0); Alkaline Phosphatase 237 U/L (39-117); Anion Gap 14 (12-20); Aspartate Amino Transferase 437 U/L (5-31); Bilirubin Total 1.3 mg/dL (0.0-1.0); Blood Urea Nitrogen 27 mg/dL (9-16); Calcium 8.3 mg/dL (8.4-10.2); Carbon Dioxide 29 mmol/L (22-29); Chloride 98 mmol/L (96-108); Estimated Glomerular Filt Rate > 60; Glucose Random 118 mg/dL (60-115); Potassium 3.7 mmol/L (3.3-5.1); Sodium 137 mmol/L (135-145); Total Protein 6.5 g/dL (6.5-8.0)
[2024-12-03] MEDS: Albuterol/Iprat 2.5/0.5MG 3 ML AMPUL.NEB INHALE ×3 (08:20→21:17)
[2024-12-03] MEDS: Sertraline HCL 100 MG TABLET PO (08:27)
[2024-12-03] MEDS: Isosorbide Mononitrate 30 MG TAB.ER.24H PO (08:27)
[2024-12-03] MEDS: buPROPion HCl XL 150 MG TAB.ER.24H PO (08:27)
[2024-12-03] MEDS: Thiamine HCL 100 MG TABLET PO (08:27)
[2024-12-03] MEDS: Clopidogrel Bisulfate 75 MG TABLET PO (08:27)
[2024-12-03] MEDS: amLODIPine Besylate 2.5 MG TABLET PO (08:29)
[2024-12-03] MEDS: Lidocaine 4 % Patch ADH..PATCH 1 PATCH TRANSDERMA (08:32)
[2024-12-03] MEDS: vancomycin HCL 500 MG in 0.9 % Sodium Chloride 100 ML 110 MG IV (08:33)
[2024-12-03] MEDS: Furosemide 20 MG TABLET PO (08:47)
[2024-12-03] MEDS: Morphine Sulfate 2 MG/ML CARTRIDGE IVPUSH (08:47)
--- NOTE | 2024-12-03 11:35 | P.PNIM_ITS ---
Subjective Subjective Date of Service: 12/03/24 Interval History: on fiO2 55%, no dyspnea, cough improved Review of Systems Review of Systems: Yes all other systems are reviewed and are negative Physical Exam 2 Vital Signs: Vital Signs: Last Vital Signs Temp 97.1 F 12/03/24 11:24 Pulse 75 12/03/24 11:24 Resp 18 12/03/24 11:24 BP 114/57 L 12/03/24 11:24 Pulse Ox 92 12/03/24 11:24 O2 Del Method High Flow Nasal C annula 12/03/24 11:24 O2 Flow Rate 45 12/03/24 11:24 FiO2 61 12/03/24 11:24 BMI result Body Mass Index 25.4 Gen: in no acute distress HEENT: sclera anicteric, moist mucus membranes Neck: supple Lungs: diminished Heart: regular rate and rhythm, no murmurs Abd: soft, non-tender, non-distended Ext: no edema Skin: warm/well-perfused Neuro: alert and oriented x3, no focal findings Psych: appropriate affect Objective Data Active Medications Acetaminophen (Acetaminophen 325 Mg Tablet) 975 mg PO Q6H PRN PRN Reason: Pain, Mild 1-3,fever,headache Last Admin: 11/29/24 18:11 Dose: 975 mg Documented By: JOSIE Albuterol/Ipratropium (Albuterol/Iprat 2.5/0.5mg 3 Ml Ampul.Neb) 3 ml INHALE RQ6H WHILE AWAKE [facility] Last Admin: 12/03/24 08:20 Dose: 3 ml Documented By: ZENIA Amlodipine Besylate (Amlodipine Besylate 2.5 Mg Tablet) 2.5 mg PO DAILY [facility]; Protocol Last Admin: 12/03/24 08:29 Dose: 2.5 mg Documented By: NERY Aspirin (Aspirin Enteric Coated 81 Mg Tablet.) 81 mg PO BEDTIME [facility] Last Admin: 12/02/24 21:36 Dose: 81 mg Documented By: CLARISA Atorvastatin Calcium (Atorvastatin Calcium 40 Mg Tablet) 40 mg PO DAILY [facility] Last Admin: 12/02/24 09:09 Dose: 40 mg Documented By: ABBEY Benzonatate (Benzonatate 100 Mg Capsule) 100 mg PO TID PRN PRN Reason: Cough Last Admin: 12/01/24 05:47 Dose: 100 mg Documented By: LAI Bupropion HCl (Bupropion Hcl Xl 150 Mg Tab.Er.24h) 150 mg PO DAILY [facility] Last Admin: 12/03/24 08:27 Dose: 150 mg Documented By: NERY Calcium Carbonate (Calcium Carbonate 750 Mg Tab.Chew) 750 mg PO Q4H PRN PRN Reason: Heartburn Clopidogrel Bisulfate (Clopidogrel Bisulfate 75 Mg Tablet) 75 mg PO DAILY [facility]ER[facility] Last Admin: 12/03/24 08:27 Dose: 75 mg Documented By: NERY Docusate Sodium (Docusate Sodium 100 Mg Capsule) 100 mg PO DAILY PRN PRN Reason: Constipation Last Admin: 12/02/24 21:36 Dose: 100 mg Documented By: CLARISA Furosemide (Furosemide 20 Mg Tablet) 20 mg PO DAILY [facility]; Protocol Last Admin: 12/03/24 08:47 Dose: 20 mg Documented By: NERY Gabapentin (Gabapentin 600 Mg Tablet) 1,200 mg PO BEDTIME BERTHA Last Admin: 12/02/24 21:35 Dose: 1,200 mg Documented By: CLARISA Guaifenesin (Guaifenesin 200 Mg/10 Ml 10 Ml Liquid) 10 ml PO Q6H PRN PRN Reason: Cough Last Admin: 12/01/24 20:18 Dose: 10 ml Documented By: JU Guaifenesin/Dextromethorphan (Guaifenesin Dm 600/30 1 Tab Tab.Er.12h) 1 tab PO BID PRN PRN Reason: Cough Last Admin: 12/02/24 21:35 Dose: 1 tab Documented By: CLARISA Comments: cough Vancomycin HCl 500 mg/ Sodium (Chloride) 110 mls @ 110 mls/hr IV Q12H [facility] Last Infusion: 12/03/24 09:45 Dose: Infused Documented By: NERY Isosorbide Mononitrate (Isosorbide Mononitrate 30 Mg Tab.Er.24h) 30 mg PO DAILY [facility]; Protocol Last Admin: 12/03/24 08:27 Dose: 30 mg Documented By: NERY Levothyroxine Sodium (Levothyroxine Sodium 75 Mcg Tablet) 75 mcg PO DAILY@0600 [facility] Last Admin: 12/03/24 06:48 Dose: 75 mcg Documented By: CLARISA Lidocaine (Lidocaine 4 % Patch Adh..Patch) 1 patch TRANSDERMA DAILY [facility]; Protocol Last Admin: 12/03/24 08:32 Dose: 1 patch Documented By: NERY Lorazepam (Lorazepam 0.5 Mg Tablet) 0.5 mg PO BEDTIME PRN PRN Reason: anxiety Last Admin: 12/02/24 21:35 Dose: 0.5 mg Documented By: CLARISA Comments: anxiety Magnesium Hydroxide (Milk Of Magnesia 30 Ml Oral.Susp) 30 ml PO DAILY PRN PRN Reason: Constipation Last Admin: 12/03/24 06:49 Dose: 30 ml Documented By: CLARISA Melatonin (Melatonin 3 Mg Tablet) 6 mg PO BEDTIME PRN PRN Reason: Insomnia Last Admin: 12/02/24 21:35 Dose: 6 mg Documented By: CLARISA Comments: requested for sleep Meropenem (Meropenem 1 Gm Vial) 1 gm IVPUSH Q8H [facility] Last Admin: 12/03/24 08:30 Dose: 1 gm Documented By: NERY Methylprednisolone Sodium Succinate (Methylprednisolone Sod Succ 40 Mg/Ml Vial) 40 mg IVPUSH Q12H [facility] Last Admin: 12/03/24 01:56 Dose: 40 mg Documented By: CLARISA Morphine Sulfate (Morphine Sulfate 2 Mg/Ml Cartridge) 2 mg IVPUSH Q2H PRN; Protocol PRN Reason: Pain, Severe (Pain Scale 7-10) Last Admin: 12/03/24 08:47 Dose: 2 mg Documented By: NERY Ondansetron HCl (Ondansetron Hcl 4 Mg/2 Ml Vial) 4 mg IVPUSH Q8H PRN PRN Reason: Nausea and Vomiting Last Admin: 12/01/24 11:12 Dose: 4 mg Documented By: JERED Oxycodone HCl (Oxycodone Hcl Immed Release 5 Mg Tablet) 5 mg PO Q4H PRN PRN Reason: Pain, Moderate(Pain Scale 4-6) Last Admin: 12/03/24 06:48 Dose: 5 mg Documented By: CLARISA Pantoprazole Sodium (Pantoprazole Sodium 20 Mg Tablet.Dr) 40 mg PO BID@0630,1630 [facility] Last Admin: 12/03/24 06:48 Dose: 40 mg Documented By: CLARISA Pharmacy Consult (Consult Rx Vancomycin Dosing) 1 each MISCELLANE DAILY PRN PRN Reason: Consult order Senna (Sennosides 8.6 Mg Tablet) 8.6 mg PO DAILY PRN PRN Reason: Constipation Last Admin: 12/02/24 21:39 Dose: 8.6 mg Documented By: CLARISA Sertraline HCl (Sertraline Hcl 100 Mg Tablet) 100 mg PO DAILY [facility] Last Admin: 12/03/24 08:27 Dose: 100 mg Documented By: NERY Sodium Chloride (0.9 % Sodium Chloride Flush 3 Ml Syringe) 3 ml IVFLUSH QSHIFT [facility] Last Admin: 12/03/24 08:32 Dose: 3 ml Documented By: NERY Thiamine HCl (Thiamine Hcl 100 Mg Tablet) 100 mg PO DAILY [facility] Last Admin: 12/03/24 08:27 Dose: 100 mg Documented By: NERY Tramadol HCl (Tramadol Hcl 50 Mg Tablet) 50 mg PO Q6H PRN PRN Reason: Pain, Moderate(Pain Scale 4-6) Last Admin: 12/01/24 08:50 Dose: 50 mg Documented By: JERED Labs 12/03/24 06:17 12/03/24 06:17 Labs: Laboratory Results - last 24 hr 12/02/24 12/03/24 12/03/24 18:11 06:17 06:26 MCV 96.1 MCH 33.1 H MCHC 34.5 RDW 14.6 Plt Count 79 L D MPV 11.7 Absolute Nucleated RBC 0.000 Nucleated RBC % (auto) 0.0 VBG pH 7.48 H VBG pCO2 44 VBG pO2 78 VBG HCO3 33 H VBG O2 Saturation 95.0 VBG Base Excess 9.2 Anion Gap 14 Estim Creat Clear Calc 69.0 Estimated GFR > 60 Random Glucose 118 H Calcium 8.3 L Total Bilirubin 1.3 H AST 437 H ALT 354 H Alkaline Phosphatase 237 H Total Protein 6.5 Albumin 2.8 L Random Vancomycin 19.9 Assessment and Plan (1) Multifocal pneumonia: Status: Acute (2) COPD with acute exacerbation: Status: Acute (3) Cough: Status: Acute Plan d10 for 69yo F with carotid stenosis s/p endarterectomy, PVD s/p bypass + subclavian stenting, CKD3, JUSTYN, L3-L5 decompression surgery, hypothyroidism, mood disorder, and recent Streptococcus mutans bacteremia treated with amoxicillin, also recent small subacute hematoma and delirium presented with dyspnea and cough, admitted for hypoxia and sepsis due to Covid- 19 + pneumonia found to have osteomyelitis/discitis L5/S1 osteomyelitis multifocal pneumonia - vancomycin + ertapenem [meropenem while hospitalized] 6 wk per ID, 11/24-01/05, BCx clear, per Nephrology avoid PICC so eventually will need Quiroga catheter but will wait until pt off HFNC - pain control with lidocaine patch, oxycodone, IV morphine acute hypoxic respiratory failure due to pneumonia, Covid-19, and COPD exacerbation - changed prednisone back to IV methylprednisolone; continue nebs - CTA negative for PE 11/24 - appears euvolemic; change IV to PO furosemide; TTE 12/02: 1. Normal LV ejection fraction of 60 65% with impaired relaxation filling pattern 2. Mildly dilated left atrium 3. Early mild aortic stenosis with moderate mitral annular calcification 4. Normal RV systolic pressure 5. No pericardial effusion - Pulmonology consulted; no additional recommendations - supplemental O2, wean as tolerated; currently on HFNC 50 Lpm 55% fiO2 thrombocytopenia - suspect due to sepsis, possibly from cefepime as well which has been stopped and changed to meropenem; continue to monitor CBC daily; platelets improved today elevated LFTs - suspect due to sepsis; were improving but worsening today; will check abd US + Dopplers and consult GI; hold atorvastatin; continue to monitor; hepatitis serologies negative carotid stenosis PVD - resume ASA + clopidogrel; hold atorvastatin hypoK - repleted acute lactic acidosis - due to hypoxia + bronchodilators distended gallbladder on CT - no abd pain, HIDA negative anemia - likely due to chronic inflammation; transfused 2u pRBCs on 11/28 and H+H improved CKD3 - SCr at baseline, Quiroga rather than PICC per Nephrology hypothyroidism - continue LT4 HTN CAD - Imdur, furosemide, amlodipine mood disorder - bupropion, sertraline, lorazepam VTE ppx - SCDs, no heparin due to thrombocytopenia dispo - STR In my clinical judgment, the patient requires continued inpatient hospitalization for the following reasons: hypoxia, IV ABX Total time managing care of this patient today: 45 minutes. Quality Stroke Does the patient have a stroke diagnosis?: No VTE Prior VTE?: No VTE Risk Level:: Medical - moderate - high VTE Device Contraindication: Treatment Not Indicated VTE Drug Contraindication: N/A - Med Ordered
[2024-12-03] MEDS: guaiFENesin 200 MG/10 ML 10 ML LIQUID PO (15:00)
--- NOTE | 2024-12-03 16:03 | HO.WOUND ---
Wound Consult: follow up 69yr old?female admitted to [facility] on 11/24/24 - See progress notes and H&P for detailed history.? Wound consult follow up for Coccyx.? Patient agreeable to assessment and photo documentation.? Coccyx 11/27/24 Coccyx 12/03/24 Etiology: Improving Pressure injury remains Unstageable at this time ?Present on Admission Measurements: 2cm x 0.2cm Wound Bed: thin veil of slough remains Drainage / Odor: None noted Edges: ? well defined Marge wound: ?Red pink nonblanchable tissue No Induration, Fluctuance or Warmth noted Pain: reports pain and discomfort Goals of Treatment: ? Triad and foam dressing to allow for protection and autolytic debridement Of note patient refuses foam dressing agreeable to Triad application. Heels assessed for intact tissue - given limited mobility at this time preventative foams heel dressing applied. Recommendations: 1. Turn and Reposition every 2 hours and as needed for patient comfort.? Use pillows or wedges to support off loading positions. 2. Off Load all bony prominences with use of pillows and heel boots if needed.? Apply Preventative foams where needed. ? 3. Monitor for incontinence and moisture control, use barrier creams when needed for prevention and treatment. 4. Provide adequate and supplemental nutrition.? 5. Order low air loss mattress. 6. When applicable maintain blood glucose levels per Providers order. Coccyx - Off Load Pressure with Q2 hr turns and use of pillows - Cleanse with PH balance spray or wipes, pat dry. ?Apply thin layer of Triad to wound bed. Do not remove all of paste between applications as this may cause further skin damage.? Cover with foam dressing to aid in off loading and protection from friction. Change every 3 days and PRN. Re-consult wound care Nurse for wound deterioration or wound changes.
[2024-12-03] MEDS: Sennosides/Docusate Sodium TABLET 2 TAB PO ×2 (16:24→20:02)
[2024-12-03 18:29] LABS: Vancomycin Random 18.5 mcg/mL (15-20)
--- NOTE | 2024-12-03 18:35 | PM.EVENT ---
Event Note Date of Service: 12/03/24 Event Note: GI Consult-Full note dictated-History from the patient and her daughter, Blank, at the bedside, as well as from the EMR. Imp: 69 yo female with cirrhosis due to probable fatty liver(negative liver w/u in 06/2024) and known gallstones with rising LFT's in relation to sepsis, pneumonia, and vertebral osteomyelitis. There is no sign of cholecystitis or choledocholithiasis by imaging studies or clinical history. I suspect she has a primarily cholestasis of sepsis as the cause of the waxing and waning LFT's, as well as possibly some drug-induced LFT elevation and some component of shock liver due to some relatively low BP's seen in VS log. Rec: Observe, F/U labs including PT/INR, Check U/S report re: the biliary tree description. Obtain MRCP if U/S raises any suspicion of CBD obstruction or CBD stones. D/W patient and her daughter in detail. Thanks. Time Spent With Patient Time: Total time managing care of this patient today ____ minutes.
--- NOTE | 2024-12-03 18:40 | HE.PHANOTE ---
RE: VANCO DOSING Trough came back as 18.5 mg/L. Continue with dose of 500 mg q12h, next trough is scheduled for 12/04/24 @1800.
[2024-12-03] MEDS: Melatonin 3 MG TABLET 6 MG PO (20:02)
[2024-12-03] MEDS: LORazepam 0.5 MG TABLET PO (20:03)
[2024-12-03] MEDS: Gabapentin 600 MG TABLET 1200 MG PO (20:03)
[2024-12-03] MEDS: vancomycin HCL 500 MG in 0.9 % Sodium Chloride 100 ML 100 MG IV (20:03)
[2024-12-03] MEDS: Aspirin Enteric Coated 81 MG TABLET.DR PO (20:03)
[2024-12-04] VITALS (14 sets, daily range): BP systolic 123–183; BP diastolic 59–85; PULSE 67–99; RESP 16–20; TEMP 36.3–37.2; O2SAT 86–98; BMI 25.4
[2024-12-04] MEDS: Meropenem 1 GM VIAL IVPUSH ×3 (02:37→17:09)
[2024-12-04] MEDS: methylPREDNISolone Sod Succ 40 MG/ML VIAL IVPUSH ×2 (02:37→15:09)
--- NOTE | 2024-12-04 04:44 | CONS_ITS ---
DATE OF SERVICE: 12/03/2024 REASON FOR CONSULTATION: Elevated LFTs. History of cirrhosis. HISTORY OF PRESENT ILLNESS: History has been obtained from the patient and her daughter, Leila, as well as from the medical record. The patient is a 69-year-old female who I actually met back in June when she was admitted with some significant bleeding from recent dental work. At that time, she had been on blood thinners and also had thrombocytopenia that most likely was in relation to some underlying liver disease. She did not have any GI bleeding. Her workup for liver disease while in the hospital back in June was negative for anything such as chronic viral hepatitis, autoimmune liver disease, primary biliary cholangitis, alpha-1 antitrypsin deficiency, or iron overload. She denied any history of alcohol use in the past nor presently. It was felt that she has some chronic liver disease in relation to probable fatty liver. In any event, I have not seen her since that time. However, she has had multiple medical issues since then and multiple surgeries including a right carotid endarterectomy, vascular bypass consisting of what she describes as an axillofemoral bypass, sepsis, and now admission here for COVID with associated pneumonia as well as the finding of an osteomyelitis of the L5-S1 vertebra. Imaging studies have revealed known gallstones but no evidence of any cholecystitis on the CT scan. She had HIDA scan that was normal without any sign of cystic duct or bile duct obstruction. There was normal hepatic uptake as well. She did have elevated LFTs on November 29 with a total bilirubin of 3.1, AST 449 and ALT of 409. A liver profile on November 24 was completely normal. On November 30 the following day, her LFTs markedly improved with a total bilirubin of 1.8, AST 144, ALT 245. The following day, the LFTs continued to improve with a total bilirubin of 1.7, AST of 115, ALT 191, and alkaline phosphatase 181. They were again improved on December 02, but today the numbers again increased with her AST going from 124 yesterday to 437 today, ALT 164 yesterday to 354 today, and alkaline phosphatase 184 yesterday and 237 today. Her total bilirubin remained stable at 1.3 compared to 1.4 yesterday. The patient denies any known history of liver disease although again was found to have cirrhosis on imaging studies back in June. She describes that her father had liver disease, but describes that he was a drinker. There is no other family history of liver disease. In review of her vital signs, there has been no obvious hypotension to speak of during this hospitalization. She did have a blood pressure as low as 103/58 back on December 01. She presently denies any abdominal pain. She has been tolerating diet, although appetite has been diminished. She denies any signs of jaundice. She has not had any vomiting and denies any diarrhea. CURRENT MEDICATIONS: Include acetaminophen, 81 mg aspirin, atorvastatin, clopidogrel, furosemide, gabapentin, isosorbide, levothyroxine, melatonin, IV meropenem, IV methylprednisolone, morphine p.r.n., Zofran p.r.n., oxycodone p.r.n., IV pantoprazole, MiraLAX, Senokot p.r.n., sertraline, thiamine, tramadol p.r.n., IV vancomycin. PAST MEDICAL HISTORY: Cirrhosis and gallstones as above. Vascular disease with surgeries as above. COPD. Hyperlipidemia. She denies history of diabetes. Depression. Hypothyroidism. Recent diagnosis of osteomyelitis of the L5-S1 vertebra. She did have previous back surgery as well. Anxiety. Recent septicemia. In regard to the vascular disease, she does have multiple stents in the aorta and lower extremities. Hypothyroidism. Other surgeries include , appendectomy, and the vascular surgery as above. SOCIAL HISTORY: She does not smoke. She denies any significant alcohol use. FAMILY HISTORY: Noncontributory. REVIEW OF SYSTEMS: CONSTITUTIONAL: She has been feeling poorly in general in relation to all of her medical problems and surgeries. CARDIAC: No chest pain. PULMONARY: She is short of breath, but denies any hemoptysis. GI: As above. URINARY: No dysuria. No hematuria. PHYSICAL EXAMINATION: GENERAL: The patient is a chronically ill-appearing female. She is pleasant and answers questions appropriately. SKIN: Warm and dry. Nonjaundiced. No obvious spider angiomata. Anicteric sclerae. ABDOMEN: Soft, nondistended, nontender without palpable mass. LABORATORY DATA: As above. Imaging studies as above. Laboratories from today showed a white blood cell count of 5.4, hemoglobin 11.1, platelets 79,000. PT was 13.6 with INR 1.2 on November 30. She did have an abdominal ultrasound today, but the report is pending. IMPRESSION: Given the patient's clinical history, I suspect her waxing and waning LFTs could be related to her ongoing issues with infection including sepsis and possibly periods of relative hypotension with some poor perfusion to the liver on that basis. I do not think this is related to her gallbladder or biliary obstruction based on the imaging studies and the fact that she has no abdominal pain. She does not appear to have any component of liver failure based on her clinical exam at the present time without any jaundice or encephalopathy. At this point, I would continue to follow her labs and observe things. I would stop any potential hepatotoxic drugs that she is on such as acetaminophen and her statin medication. She does have the ultrasound pending and will be important to check that to be sure they do not think there is any biliary obstruction on the ultrasound, although her CT scan was negative for that. If there is any suspicion of biliary disease such as a stone or obstruction, we could then proceed with MRCP if need be. However, at this point, I do not think that is necessary. As far as the cause of the underlying liver disease with cirrhosis, I did advise her and her daughter that this most likely is related to some fatty liver given the otherwise negative workup back in June. Patients with chronic liver disease and then subsequent acute infections or other problems will develop cholestasis from the sepsis as I suspect she is doing at the present time. I did place orders to have her statin and acetaminophen held. She should have periodic LFTs to be sure things are improving. If the LFTs continue to worsen, I would then check a repeat PT with INR. This has all been discussed in detail with the patient and her daughter and they are comfortable with the plan. Thank you for the consultation. MD POLLY Bustamante/MANUELA / [id number] AURA
[2024-12-04] MEDS: guaiFENesin 200 MG/10 ML 10 ML LIQUID PO ×2 (06:09→15:22)
[2024-12-04] MEDS: Pantoprazole Sodium 20 MG TABLET.DR 40 MG PO ×2 (06:09→17:09)
[2024-12-04] MEDS: oxyCODONE HCl Immed Release 5 MG TABLET PO ×4 (06:09→20:13)
[2024-12-04] MEDS: Levothyroxine Sodium 75 MCG TABLET PO (06:09)
[2024-12-04 06:58] LABS: INTERNATIONAL NORM RATIO 1.1 (0.9-1.1); Prothrombin Time 12.2 SEC (10.9-12.4)
[2024-12-04 07:00] LABS: Hematocrit 31.9 % (37.0-47.0); Hemoglobin 10.8 g/dl (12.0-16.0); Mean Corpuscular HGB Conc 33.9 g/dl (31.0-35.0); Mean Corpuscular Hemoglobin 33.3 pg (27.0-33.0); Mean Corpuscular Volume 98.5 fL (80.0-98.0); Mean Platelet Volume 11.5 fL (9.4-12.3); Red Blood Count 3.24 X10*6/uL (4.20-5.50); Red Cell Distribution Width 14.5 % (11.0-16.0); White Blood Count 3.8 X10*3/uL (4.8-10.8)
[2024-12-04 07:06] LABS: Platelet Count 71 X10*3/uL (160-400)
[2024-12-04 07:09] LABS: Alanine Aminotransferase 224 U/L (0-31); Albumin Level 2.7 g/dL (3.5-5.0); Alkaline Phosphatase 223 U/L (39-117); Anion Gap 12 (12-20); Aspartate Amino Transferase 175 U/L (5-31); Bilirubin Direct 0.6 mg/dL (0.0-0.5); Blood Urea Nitrogen 17 mg/dL (9-16); C Reactive Protein 4.78 mg/dL (< or = 0.50); Carbon Dioxide 30 mmol/L (22-29); Chloride 98 mmol/L (96-108); Creatinine Clr Calc Pharmacy 83.7; Estimated Glomerular Filt Rate > 60; Glucose Random 100 mg/dL (60-115); Potassium 4.1 mmol/L (3.3-5.1); Sodium 136 mmol/L (135-145); Total Protein 6.5 g/dL (6.5-8.0)
[2024-12-04 07:28] LABS: Procalcitonin 1.25 ng/mL
[2024-12-04] MEDS: Albuterol/Iprat 2.5/0.5MG 3 ML AMPUL.NEB INHALE ×3 (07:37→20:58)
[2024-12-04] MEDS: Isosorbide Mononitrate 30 MG TAB.ER.24H PO (08:45)
[2024-12-04] MEDS: Furosemide 20 MG TABLET PO (08:45)
[2024-12-04] MEDS: buPROPion HCl XL 150 MG TAB.ER.24H PO (08:45)
[2024-12-04] MEDS: Thiamine HCL 100 MG TABLET PO (08:45)
[2024-12-04] MEDS: Clopidogrel Bisulfate 75 MG TABLET PO (08:45)
[2024-12-04] MEDS: Lidocaine 4 % Patch ADH..PATCH 1 PATCH TRANSDERMA (08:46)
[2024-12-04] MEDS: amLODIPine Besylate 2.5 MG TABLET PO (08:46)
[2024-12-04] MEDS: polyethylene glycoL 3350 17 GM POWD.PACK PO (08:46)
[2024-12-04] MEDS: Sennosides/Docusate Sodium TABLET 2 TAB PO ×2 (08:46→20:14)
[2024-12-04] MEDS: Sertraline HCL 100 MG TABLET PO (08:46)
[2024-12-04] MEDS: vancomycin HCL 500 MG in 0.9 % Sodium Chloride 100 ML 110 MG IV ×2 (08:47→20:09)
[2024-12-04] MEDS: 0.9 % Sodium Chloride Flush 3 ML SYRINGE IVFLUSH ×3 (08:48→20:15)
--- NOTE | 2024-12-04 09:50 | HO.PM.IMPN ---
Subjective Subjective Date of Service: 12/04/24 Interval History: still requiring HFNC 55% fiO2 minimal cough no fever Review of Systems Review of Systems: Yes all other systems are reviewed and are negative Physical Exam Vital Signs: Vital Signs: Last Vital Signs Temp 97.7 F 12/04/24 08:00 Pulse 79 12/04/24 08:00 Resp 20 12/04/24 08:00 BP 133/68 12/04/24 08:00 Pulse Ox 93 12/04/24 08:00 O2 Del Method High Flow Nasal C annula 12/04/24 08:00 O2 Flow Rate 55 12/04/24 08:00 FiO2 50 12/04/24 08:00 BMI result Body Mass Index 25.4 Gen: in no acute distress HEENT: sclera anicteric, moist mucus membranes Neck: supple Lungs: diminished Heart: regular rate and rhythm, no murmurs Abd: soft, non-tender, non-distended Ext: no edema Skin: warm/well-perfused Neuro: alert and oriented x3, no focal findings Psych: appropriate affect Objective Data Active Medications Albuterol/Ipratropium (Albuterol/Iprat 2.5/0.5mg 3 Ml Ampul.Neb) 3 ml INHALE RQ6H WHILE AWAKE [facility] Last Admin: 12/04/24 07:37 Dose: 3 ml Documented By: REGINALD Amlodipine Besylate (Amlodipine Besylate 2.5 Mg Tablet) 2.5 mg PO DAILY [facility]; Protocol Last Admin: 12/04/24 08:46 Dose: 2.5 mg Documented By: NERY Aspirin (Aspirin Enteric Coated 81 Mg Tablet.) 81 mg PO BEDTIME [facility] Last Admin: 12/03/24 20:03 Dose: 81 mg Documented By: MARK Benzonatate (Benzonatate 100 Mg Capsule) 100 mg PO TID PRN PRN Reason: Cough Last Admin: 12/01/24 05:47 Dose: 100 mg Documented By: CASTILRosario Bisacodyl (Bisacodyl 5 Mg Tablet.) 10 mg PO BEDTIME PRN PRN Reason: Constipation Bupropion HCl (Bupropion Hcl Xl 150 Mg Tab.Er.24h) 150 mg PO DAILY [facility] Last Admin: 12/04/24 08:45 Dose: 150 mg Documented By: NERY Calcium Carbonate (Calcium Carbonate 750 Mg Tab.Chew) 750 mg PO Q4H PRN PRN Reason: Heartburn Clopidogrel Bisulfate (Clopidogrel Bisulfate 75 Mg Tablet) 75 mg PO DAILY [facility] Last Admin: 12/04/24 08:45 Dose: 75 mg Documented By: NERY Furosemide (Furosemide 20 Mg Tablet) 20 mg PO DAILY [facility]; Protocol Last Admin: 12/04/24 08:45 Dose: 20 mg Documented By: NERY Gabapentin (Gabapentin 600 Mg Tablet) 1,200 mg PO BEDTIME [facility] Last Admin: 12/03/24 20:03 Dose: 1,200 mg Documented By: MARK Guaifenesin (Guaifenesin 200 Mg/10 Ml 10 Ml Liquid) 10 ml PO Q6H PRN PRN Reason: Cough Last Admin: 12/04/24 06:09 Dose: 10 ml Documented By: MARK Guaifenesin/Dextromethorphan (Guaifenesin Dm 600/30 1 Tab Tab.Er.12h) 1 tab PO BID PRN PRN Reason: Cough Last Admin: 12/02/24 21:35 Dose: 1 tab Documented By: CLARISA Comments: cough Vancomycin HCl 500 mg/ Sodium (Chloride) 110 mls @ 110 mls/hr IV Q12H [facility] Last Admin: 12/04/24 08:47 Dose: 110 mls/hr Documented By: NERY Isosorbide Mononitrate (Isosorbide Mononitrate 30 Mg Tab.Er.24h) 30 mg PO DAILY [facility]; Protocol Last Admin: 12/04/24 08:45 Dose: 30 mg Documented By: NERY Levothyroxine Sodium (Levothyroxine Sodium 75 Mcg Tablet) 75 mcg PO DAILY@0600 [facility] Last Admin: 12/04/24 06:09 Dose: 75 mcg Documented By: MARK Lidocaine (Lidocaine 4 % Patch Adh..Patch) 1 patch TRANSDERMA DAILY [facility]; Protocol Last Admin: 12/04/24 08:46 Dose: 1 patch Documented By: NERY Magnesium Hydroxide (Milk Of Magnesia 30 Ml Oral.Susp) 30 ml PO DAILY PRN PRN Reason: Constipation Last Admin: 12/03/24 06:49 Dose: 30 ml Documented By: CLARISA Melatonin (Melatonin 3 Mg Tablet) 6 mg PO BEDTIME PRN PRN Reason: Insomnia Last Admin: 12/03/24 20:02 Dose: 6 mg Documented By: MARK Meropenem (Meropenem 1 Gm Vial) 1 gm IVPUSH Q8H [facility] Last Admin: 12/04/24 02:37 Dose: 1 gm Documented By: MARK Methylprednisolone Sodium Succinate (Methylprednisolone Sod Succ 40 Mg/Ml Vial) 40 mg IVPUSH Q12H [facility] Last Admin: 12/04/24 02:37 Dose: 40 mg Documented By: MARK Morphine Sulfate (Morphine Sulfate 2 Mg/Ml Cartridge) 2 mg IVPUSH Q2H PRN; Protocol PRN Reason: Pain, Severe (Pain Scale 7-10) Last Admin: 12/03/24 08:47 Dose: 2 mg Documented By: NERY Ondansetron HCl (Ondansetron Hcl 4 Mg/2 Ml Vial) 4 mg IVPUSH Q8H PRN PRN Reason: Nausea and Vomiting Last Admin: 12/01/24 11:12 Dose: 4 mg Documented By: JERED Oxycodone HCl (Oxycodone Hcl Immed Release 5 Mg Tablet) 5 mg PO Q4H PRN PRN Reason: Pain, Moderate(Pain Scale 4-6) Last Admin: 12/04/24 06:09 Dose: 5 mg Documented By: MARK Pantoprazole Sodium (Pantoprazole Sodium 20 Mg Tablet.Dr) 40 mg PO BID@0630,1630 [facility] Last Admin: 12/04/24 06:09 Dose: 40 mg Documented By: MARK Pharmacy Consult (Consult Rx Vancomycin Dosing) 1 each MISCELLANE DAILY PRN PRN Reason: Consult order Polyethylene Glycol (Polyethylene Glycol 3350 17 Gm Powd.Pack) 17 gm PO DAILY [facility] Last Admin: 12/04/24 08:46 Dose: 17 gm Documented By: NERY Senna (Sennosides 8.6 Mg Tablet) 8.6 mg PO DAILY PRN PRN Reason: Constipation Last Admin: 12/02/24 21:39 Dose: 8.6 mg Documented By: CLARISA Senna/Docusate Sodium (Sennosides/Docusate Sodium Tablet) 2 tab PO BID [facility] Last Admin: 12/04/24 08:46 Dose: 2 tab Documented By: NERY Sertraline HCl (Sertraline Hcl 100 Mg Tablet) 100 mg PO DAILY [facility] Last Admin: 12/04/24 08:46 Dose: 100 mg Documented By: NERY Sodium Biphosphate/Sodium Phosphate (Sodium Phosphate,[place]-Dibasic 133 Ml Enema) 133 ml NV ONCE PRN PRN Reason: constipation Sodium Chloride (0.9 % Sodium Chloride Flush 3 Ml Syringe) 3 ml IVFLUSH QSHIFT [facility] Last Admin: 12/04/24 08:48 Dose: 3 ml Documented By: NERY Thiamine HCl (Thiamine Hcl 100 Mg Tablet) 100 mg PO DAILY [facility] Last Admin: 12/04/24 08:45 Dose: 100 mg Documented By: NERY Tramadol HCl (Tramadol Hcl 50 Mg Tablet) 50 mg PO Q6H PRN PRN Reason: Pain, Moderate(Pain Scale 4-6) Last Admin: 12/01/24 08:50 Dose: 50 mg Documented By: JERED Labs 12/04/24 06:22 12/04/24 06:22 Labs: Laboratory Results - last 24 hr 12/03/24 12/04/24 18:05 06:22 MCV 98.5 H MCH 33.3 H MCHC 33.9 RDW 14.5 Plt Count 71 L MPV 11.5 Absolute Nucleated RBC 0.000 Nucleated RBC % (auto) 0.0 PT 12.2 INR 1.1 Anion Gap 12 Estim Creat Clear Calc 83.7 Estimated GFR > 60 Random Glucose 100 Calcium 8.0 L Total Bilirubin 1.0 Direct Bilirubin 0.6 H AST 175 H ALT 224 H Alkaline Phosphatase 223 H C-Reactive Protein 4.78 H Total Protein 6.5 Albumin 2.7 L Procalcitonin 1.25 Random Vancomycin 18.5 Impressions Abdomen Ultrasound 12/03/24 15:23 IMPRESSION: 1. Coarsened hepatic echotexture. The portal vein is patent. 2. Cholelithiasis. Electronically signed by: Jayy Manley MD 12/04/2024 07:52 AM EDT Assessment and Plan (1) Multifocal pneumonia: Status: Acute (2) COPD with acute exacerbation: Status: Acute (3) Cough: Status: Acute Plan d11 for 69yo F with carotid stenosis s/p endarterectomy, PVD s/p bypass + subclavian stenting, CKD3, JUSTYN, L3-L5 decompression surgery, hypothyroidism, mood disorder, and recent Streptococcus mutans bacteremia treated at [facility] [place] and discharged on amoxicillin, also recent small subacute hematoma and delirium presented with dyspnea and cough, admitted for hypoxia and sepsis due to Covid-19 + pneumonia found to have osteomyelitis/discitis L5/S1 osteomyelitis multifocal pneumonia - vancomycin + ertapenem [meropenem while hospitalized] 6 wk per ID, 11/24-01/05/25, BCx clear, per Nephrology avoid PICC so eventually will need Quiroga catheter but will wait until pt is off HFNC - pain control with lidocaine patch, oxycodone, IV morphine acute hypoxic respiratory failure due to pneumonia, Covid-19, and COPD exacerbation - changed prednisone back to IV methylprednisolone; continue nebs - CTA negative for PE 11/24 - appears euvolemic; changed IV to PO furosemide; TTE 12/02: 1. Normal LV ejection fraction of 60 65% with impaired relaxation filling pattern 2. Mildly dilated left atrium 3. Early mild aortic stenosis with moderate mitral annular calcification 4. Normal RV systolic pressure 5. 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 but current issue related to shock liver; hepatitis serologies negative; continue to monitor LFTs, which have improved today PVD - resumed ASA + clopidogrel; hold atorvastatin hypoK - repleted acute lactic acidosis - due to hypoxia + bronchodilators distended gallbladder on CT - no abd pain, HIDA negative anemia - likely due to chronic inflammation; transfused 2u pRBCs on 11/28 and H+H improved CKD3 - SCr at baseline, Quiroga rather than PICC per Nephrology hypothyroidism - continue LT4 HTN CAD - Imdur, furosemide, amlodipine mood disorder - bupropion, sertraline, lorazepam VTE ppx - SCDs, no heparin due to thrombocytopenia dispo - STR In my clinical judgment, the patient requires continued inpatient hospitalization for the following reasons: hypoxia, IV ABX Total time managing care of this patient today: 45 minutes. Quality Stroke Does the patient have a stroke diagnosis?: No VTE Prior VTE?: No VTE Risk Level:: Medical - moderate - high VTE Device Contraindication: Treatment Not Indicated VTE Drug Contraindication: N/A - Med Ordered
--- NOTE | 2024-12-04 11:51 | MHC.CM.PN ---
EMR reviewed and per MD rounds, pt is not medically cleared for discharge due to management of hypoxia, pt remains on hi-flow.
--- NOTE | 2024-12-04 15:26 | MHC.CLN ---
F/U DIET RX: REGULAR ENSURE BID TO INCREASE KCALS R/T ACUTE ILLNESS AND IMPAIRED SKIN INTEGRITY SUPP TO PROVIDE 700KCALS, 40G PROTEIN SKIN WITH UNSTAGEABLE AREA TO COCCYX PER WOUND RN MOST RECENT PO INTAKE 50-75% MONITOR PO INTAKE AND ENCOURAGE SUPPLEMENTS
[2024-12-04] MEDS: Gabapentin 600 MG TABLET 1200 MG PO (20:13)
[2024-12-04] MEDS: Melatonin 3 MG TABLET 6 MG PO (20:14)
[2024-12-04] MEDS: Aspirin Enteric Coated 81 MG TABLET.DR PO (20:14)
[2024-12-04] MEDS: LORazepam 0.5 MG TABLET PO (20:25)
[2024-12-05] VITALS (19 sets, daily range): BP systolic 119–180; BP diastolic 58–78; PULSE 74–112; RESP 16–30; TEMP 36.1–38; O2SAT 91–99
[2024-12-05] MEDS: Meropenem 1 GM VIAL IVPUSH ×3 (01:50→16:29)
[2024-12-05] MEDS: methylPREDNISolone Sod Succ 40 MG/ML VIAL IVPUSH ×2 (01:51→16:27)
[2024-12-05] MEDS: Pantoprazole Sodium 20 MG TABLET.DR 40 MG PO ×2 (05:28→16:30)
[2024-12-05] MEDS: Levothyroxine Sodium 75 MCG TABLET PO (05:28)
[2024-12-05] MEDS: Albuterol/Iprat 2.5/0.5MG 3 ML AMPUL.NEB INHALE ×3 (07:47→20:45)
[2024-12-05 08:18] LABS: Hematocrit 30.2 % (37.0-47.0); Hemoglobin 10.5 g/dl (12.0-16.0); Mean Corpuscular HGB Conc 34.8 g/dl (31.0-35.0); Mean Corpuscular Hemoglobin 33.9 pg (27.0-33.0); Mean Corpuscular Volume 97.4 fL (80.0-98.0); Mean Platelet Volume 11.2 fL (9.4-12.3); Red Cell Distribution Width 14.4 % (11.0-16.0); White Blood Count 3.2 X10*3/uL (4.8-10.8)
[2024-12-05 08:19] LABS: Platelet Count 92 X10*3/uL (160-400)
[2024-12-05 08:36] LABS: Alanine Aminotransferase 148 U/L (0-31); Albumin Level 2.7 g/dL (3.5-5.0); Alkaline Phosphatase 205 U/L (39-117); Anion Gap 14 (12-20); Aspartate Amino Transferase 74 U/L (5-31); Bilirubin Total 1.1 mg/dL (0.0-1.0); Blood Urea Nitrogen 16 mg/dL (9-16); Calcium 8.3 mg/dL (8.4-10.2); Carbon Dioxide 31 mmol/L (22-29); Chloride 97 mmol/L (96-108); Creatinine Clr Calc Pharmacy 87.7; Estimated Glomerular Filt Rate > 60; Glucose Random 120 mg/dL (60-115); Magnesium 2.1 mg/dL (1.6-2.6); Sodium 138 mmol/L (135-145); Total Protein 6.6 g/dL (6.5-8.0)
--- NOTE | 2024-12-05 08:41 | HE.PHANOTE ---
SHARLENE PLATT Patient is on 500 mg Q12H. Last level was within therapeutic range. Will continue with current dose of 500 mg Q12H. Next level is due 12/06 @1800.
[2024-12-05] MEDS: Sertraline HCL 100 MG TABLET PO (09:21)
[2024-12-05] MEDS: Sennosides/Docusate Sodium TABLET 2 TAB PO (09:21)
[2024-12-05] MEDS: Thiamine HCL 100 MG TABLET PO (09:21)
[2024-12-05] MEDS: Clopidogrel Bisulfate 75 MG TABLET PO (09:22)
[2024-12-05] MEDS: Furosemide 20 MG TABLET PO (09:22)
[2024-12-05] MEDS: buPROPion HCl XL 150 MG TAB.ER.24H PO (09:22)
[2024-12-05] MEDS: amLODIPine Besylate 2.5 MG TABLET PO (09:22)
[2024-12-05] MEDS: polyethylene glycoL 3350 17 GM POWD.PACK PO (09:22)
[2024-12-05] MEDS: Isosorbide Mononitrate 30 MG TAB.ER.24H PO (09:22)
[2024-12-05] MEDS: vancomycin HCL 500 MG in 0.9 % Sodium Chloride 100 ML 110 MG IV ×2 (09:24→19:40)
[2024-12-05] MEDS: 0.9 % Sodium Chloride Flush 3 ML SYRINGE IVFLUSH ×3 (09:25→23:26)
[2024-12-05] MEDS: guaiFENesin 200 MG/10 ML 10 ML LIQUID PO ×2 (09:35→16:30)
[2024-12-05] MEDS: Sennosides 8.6 MG TABLET PO (09:35)
[2024-12-05] MEDS: Morphine Sulfate 2 MG/ML CARTRIDGE IVPUSH (09:35)
[2024-12-05] MEDS: guaiFENesin DM 600/30 1 TAB TAB.ER.12H PO ×2 (12:05→23:41)
[2024-12-05] MEDS: oxyCODONE HCl Immed Release 5 MG TABLET 10 MG PO (12:08)
--- NOTE | 2024-12-05 15:06 | HO.PM.IMPN ---
Subjective Subjective Date of Service: 12/05/24 Interval History: No acute changes overnight. Continues to require high flow oxygen Review of Systems Denies chest pain Admits shortness of breath that is unchanged Denies nausea vomiting diarrhea Denies fever chills Physical Exam Vital Signs: Vital Signs: Last Vital Signs Temp 97.7 F 12/05/24 11:10 Pulse 79 12/05/24 11:10 Resp 20 12/05/24 11:48 BP 144/65 H 12/05/24 11:10 Pulse Ox 96 12/05/24 11:10 O2 Del Method High Flow Nasal C annula 12/05/24 11:10 O2 Flow Rate 55 12/05/24 11:10 FiO2 70 12/05/24 11:10 BMI result Body Mass Index 25.4 Const: Other: Awake alert no acute distress Resp: Other: Diminished at bases with expiratory wheezes Cardio: Other: No S4; positive S1-S2; no S3 murmurs rubs or gallops GI: Other: Soft nontender nondistended normoactive bowel sounds Extrem: Other: No edema bilaterally Objective Data Active Medications Albuterol/Ipratropium (Albuterol/Iprat 2.5/0.5mg 3 Ml Ampul.Neb) 3 ml INHALE RQ6H WHILE AWAKE [facility] Last Admin: 12/05/24 07:47 Dose: 3 ml Documented By: JUSTINE Amlodipine Besylate (Amlodipine Besylate 2.5 Mg Tablet) 2.5 mg PO DAILY [facility]; Protocol Last Admin: 12/05/24 09:22 Dose: 2.5 mg Documented By: FRANCESCO Aspirin (Aspirin Enteric Coated 81 Mg Tablet.) 81 mg PO BEDTIME [facility] Last Admin: 12/04/24 20:14 Dose: 81 mg Documented By: FARHAT Benzonatate (Benzonatate 100 Mg Capsule) 100 mg PO TID PRN PRN Reason: Cough Last Admin: 12/01/24 05:47 Dose: 100 mg Documented By: CASTILRosario Bisacodyl (Bisacodyl 5 Mg Tablet.) 10 mg PO BEDTIME PRN PRN Reason: Constipation Bupropion HCl (Bupropion Hcl Xl 150 Mg Tab.Er.24h) 150 mg PO DAILY [facility] Last Admin: 12/05/24 09:22 Dose: 150 mg Documented By: FRANCESCO Calcium Carbonate (Calcium Carbonate 750 Mg Tab.Chew) 750 mg PO Q4H PRN PRN Reason: Heartburn Clopidogrel Bisulfate (Clopidogrel Bisulfate 75 Mg Tablet) 75 mg PO DAILY [facility] Last Admin: 12/05/24 09:22 Dose: 75 mg Documented By: FRANCESCO Furosemide (Furosemide 20 Mg Tablet) 20 mg PO DAILY [facility]; Protocol Last Admin: 12/05/24 09:22 Dose: 20 mg Documented By: FRANCESCO Gabapentin (Gabapentin 600 Mg Tablet) 1,200 mg PO BEDTIME [facility] Last Admin: 12/04/24 20:13 Dose: 1,200 mg Documented By: FARHAT Guaifenesin (Guaifenesin 200 Mg/10 Ml 10 Ml Liquid) 10 ml PO Q6H PRN PRN Reason: Cough Last Admin: 12/05/24 09:35 Dose: 10 ml Documented By: FRANCESCO Guaifenesin/Dextromethorphan (Guaifenesin Dm 600/30 1 Tab Tab.Er.12h) 1 tab PO BID PRN PRN Reason: Cough Last Admin: 12/05/24 12:05 Dose: 1 tab Documented By: FRANCESCO Vancomycin HCl 500 mg/ Sodium (Chloride) 110 mls @ 110 mls/hr IV Q12H [facility] Last Infusion: 12/05/24 11:11 Dose: Infused Documented By: FRANCESCO Isosorbide Mononitrate (Isosorbide Mononitrate 30 Mg Tab.Er.24h) 30 mg PO DAILY [facility]; Protocol Last Admin: 12/05/24 09:22 Dose: 30 mg Documented By: FRANCESCO Levothyroxine Sodium (Levothyroxine Sodium 75 Mcg Tablet) 75 mcg PO DAILY@0600 [facility] Last Admin: 12/05/24 05:28 Dose: 75 mcg Documented By: FARHAT Lidocaine (Lidocaine 4 % Patch Adh..Patch) 1 patch TRANSDERMA DAILY [facility]; Protocol Last Admin: 12/05/24 09:23 Dose: Not Given Documented By: FRANCESCO Non-Admin Reason: Patient Refused Lorazepam (Lorazepam 0.5 Mg Tablet) 0.5 mg PO BEDTIME PRN PRN Reason: anxiety/restlessness Last Admin: 12/04/24 20:25 Dose: 0.5 mg Documented By: FARHAT Magnesium Hydroxide (Milk Of Magnesia 30 Ml Oral.Susp) 30 ml PO DAILY PRN PRN Reason: Constipation Last Admin: 12/03/24 06:49 Dose: 30 ml Documented By: CLARISA Melatonin (Melatonin 3 Mg Tablet) 6 mg PO BEDTIME PRN PRN Reason: Insomnia Last Admin: 12/04/24 20:14 Dose: 6 mg Documented By: FARHAT Meropenem (Meropenem 1 Gm Vial) 1 gm IVPUSH Q8H [facility] Last Admin: 12/05/24 09:24 Dose: 1 gm Documented By: FRANCESCO Methylprednisolone Sodium Succinate (Methylprednisolone Sod Succ 40 Mg/Ml Vial) 40 mg IVPUSH Q12H [facility] Last Admin: 12/05/24 01:51 Dose: 40 mg Documented By: FARHAT Morphine Sulfate (Morphine Sulfate 4 Mg/Ml Cartridge) 4 mg IVPUSH Q3H PRN; Protocol PRN Reason: Pain, Severe (Pain Scale 7-10) Ondansetron HCl (Ondansetron Hcl 4 Mg/2 Ml Vial) 4 mg IVPUSH Q8H PRN PRN Reason: Nausea and Vomiting Last Admin: 12/01/24 11:12 Dose: 4 mg Documented By: JERED Oxycodone HCl (Oxycodone Hcl Immed Release 5 Mg Tablet) 10 mg PO Q4H PRN PRN Reason: Pain, Moderate(Pain Scale 4-6) Last Admin: 12/05/24 12:08 Dose: 10 mg Documented By: FRANCESCO Pantoprazole Sodium (Pantoprazole Sodium 20 Mg Tablet.Dr) 40 mg PO BID@0630,1630 [facility] Last Admin: 12/05/24 05:28 Dose: 40 mg Documented By: FARHAT Pharmacy Consult (Consult Rx Vancomycin Dosing) 1 each MISCELLANE DAILY PRN PRN Reason: Consult order Polyethylene Glycol (Polyethylene Glycol 3350 17 Gm Powd.Pack) 17 gm PO DAILY [facility] Last Admin: 12/05/24 09:22 Dose: 17 gm Documented By: FRANCESCO Senna (Sennosides 8.6 Mg Tablet) 8.6 mg PO DAILY PRN PRN Reason: Constipation Last Admin: 12/05/24 09:35 Dose: 8.6 mg Documented By: FRANCESCO Senna/Docusate Sodium (Sennosides/Docusate Sodium Tablet) 2 tab PO BID [facility] Last Admin: 12/05/24 09:21 Dose: 2 tab Documented By: FRANCESCO Sertraline HCl (Sertraline Hcl 100 Mg Tablet) 100 mg PO DAILY [facility] Last Admin: 12/05/24 09:21 Dose: 100 mg Documented By: FRANCESCO Sodium Biphosphate/Sodium Phosphate (Sodium Phosphate,[place]-Dibasic 133 Ml Enema) 133 ml DC ONCE PRN PRN Reason: constipation Sodium Chloride (0.9 % Sodium Chloride Flush 3 Ml Syringe) 3 ml IVFLUSH QSHIFT [facility] Last Admin: 12/05/24 09:25 Dose: 3 ml Documented By: FRANCESCO Thiamine HCl (Thiamine Hcl 100 Mg Tablet) 100 mg PO DAILY [facility] Last Admin: 12/05/24 09:21 Dose: 100 mg Documented By: FRANCESCO Tramadol HCl (Tramadol Hcl 50 Mg Tablet) 50 mg PO Q6H PRN PRN Reason: Pain, Moderate(Pain Scale 4-6) Last Admin: 12/01/24 08:50 Dose: 50 mg Documented By: JERED Labs 12/05/24 07:44 12/05/24 07:44 Labs: Laboratory Results - last 24 hr 12/04/24 12/05/24 18:12 07:44 MCV 97.4 MCH 33.9 H MCHC 34.8 RDW 14.4 Plt Count 92 L D MPV 11.2 Absolute Nucleated RBC 0.000 Nucleated RBC % (auto) 0.0 Anion Gap 14 Estim Creat Clear Calc 87.7 Estimated GFR > 60 Random Glucose 120 H Calcium 8.3 L Magnesium 2.1 Total Bilirubin 1.1 H AST 74 H ALT 148 H Alkaline Phosphatase 205 H Total Protein 6.6 Albumin 2.7 L Random Vancomycin 17.0 Assessment and Plan (1) Multifocal pneumonia: Status: Acute (2) COPD with acute exacerbation: Status: Acute (3) Osteomyelitis: Status: Acute Plan d11 for 69yo F with carotid stenosis s/p endarterectomy, PVD s/p bypass + subclavian stenting, CKD3, JUSTYN, L3-L5 decompression surgery, hypothyroidism, mood disorder, and recent Streptococcus mutans bacteremia treated at [facility] [place] and discharged on amoxicillin, also recent small subacute hematoma and delirium presented with dyspnea and cough, admitted for hypoxia and sepsis due to Covid-19 + pneumonia found to have osteomyelitis/discitis L5/S1 1.Multifocal pneumonia/acute hypoxic respiratory failure/Covid 19 -vancomycin + ertapenem [meropenem while hospitalized] 6 wk per ID, 11/24-01/05/25 -Quiroga when pulmonary status stabilized -pain control with lidocaine patch, oxycodone, IV morphine -methylprednisolone IV -DuoNebs q.4 hours while awake -titrate O2 to maintain sats greater than 92% 2.Thrombocytopenia -resolved -follow daily CBC/LFTs 3. Peripheral vascular disease -ASA/clopidogrel 4.Anemia - chronic..stable 5.CKD3 - SCr at baseline -Quiroga rather than PICC per Nephrology Pneumatics Full code In my clinical judgment, the patient requires continued inpatient hospitalization for the following reasons: hypoxia, IV ABX Quality Stroke Does the patient have a stroke diagnosis?: No VTE Prior VTE?: No VTE Risk Level:: Medical - moderate - high VTE Device Contraindication: Treatment Not Indicated VTE Drug Contraindication: N/A - Med Ordered
[2024-12-05] MEDS: Morphine Sulfate 4 MG/ML CARTRIDGE IVPUSH (16:27)
[2024-12-05] MEDS: Benzonatate 100 MG CAPSULE PO (16:30)
[2024-12-05 18:50] LABS: ABG Base Excess 9.9 mmol/L; ABG HCO3 33 mmol/L (22-26); ABG pCO2 38 mmHg (32-45); ABG pH 7.53 (7.35-7.45); ABG pO2 90 mmHg (83-108)
--- NOTE | 2024-12-05 19:30 | PC.NURSE ---
?The patient arrived at the ICU approx. at 1815 from [facility].?According to telemetry nurse patients noted to have increasing work of breathing,? max on HFNC and nonrebreather, desating to 70% on minimal exertion. Transfer to ICU for closer monitoring of respiratory status. Neuro: Alert & oriented Respiratory: Tachypnic 20-30, Now on HFNC 55L,? SpO2 96%,? clear lung sounds bilateral? Cardiac:? Sinus Tachycardia 110s : External catheter in place Skin: Scattered Bruising, PI to coccyx.? Infectious: IV antibiotics Lines: peripheral IV x1.?
[2024-12-05 19:35] LABS: Basophils Percent Auto 0.2 % (0-2); Eosinophils Percent Auto 0.5 % (0-4); Hematocrit 29.9 % (37.0-47.0); Hemoglobin 10.5 g/dl (12.0-16.0); Imm Gran Abs Auto 0.05 X10*3/uL (0.00-0.03); Imm Gran Pct Auto 0.9 % (0.0-0.4); Lymphocytes Absolute Auto 0.1 X10*3/uL (1.2-4.9); Lymphocytes Percent Auto 2.2 % (20-40); MANUAL DIFF FLAG SCAN; Mean Corpuscular HGB Conc 35.1 g/dl (31.0-35.0); Mean Corpuscular Hemoglobin 33.7 pg (27.0-33.0); Mean Corpuscular Volume 95.8 fL (80.0-98.0); Mean Platelet Volume 11.1 fL (9.4-12.3); Monocytes Absolute Auto 0.2 X10*3/uL (0.1-1.2); Monocytes Percent Auto 3.5 % (2-11); Neutrophils Absolute Auto 5.1 x10*3/uL (2.0-8.3); Neutrophils Percent Auto 92.7 % (45-73); Platelet Count 101 X10*3/uL (160-400); Red Blood Count 3.12 X10*6/uL (4.20-5.50); Red Cell Distribution Width 14.6 % (11.0-16.0); SCAN SMEAR FLAG 1; White Blood Count 5.5 X10*3/uL (4.8-10.8)
--- NOTE | 2024-12-05 19:42 | P.CONCC_ITS ---
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 Arthritis of left hip Disc degeneration, lumbar Lumbar facet arthropathy Stenosis, spinal, lumbar Sacroiliac joint pain Lumbar radicular pain Rhinitis Hypothyroidism Anxiety Tachycardia Cough COPD (chronic obstructive pulmonary disease) Family History Family history: reviewed and not pertinent Surgical History Surgical History S/P vascular bypass (~08/2024) History of carotid endarterectomy (~07/2024) No pertinent past surgical history Social History Social History Household Members: Family Household Members Other:: daughter Housing: House Are you a primary dialysis patient care technician to a significant other at home: No Do you presently have visiting nurse or other home services: Yes 75 years or older and lives alone: No Alcohol intake: current Alcohol intake frequency: a few times a week Alcohol type: beer Patient Tobacco Use Status: Former Tobacco user Tobacco use type: Cigarette Cigarette Packs Per Day: 0 e-Cigarette/Vaping Use: Never Used service: No Current occupational status: retired Current occupation: right handed, retired Sexual orientation: Unable to collect Gender identity: Unable to collect Cognitive needs: No Hearing needs: No Vision needs: Yes (wears glasses to drive.) Meds Allergies Allergy/AdvReac Type Severity Reaction Status Date / Time codeine Allergy Unknown Unknown Verified 11/24/24 15:28 Active Medications: Current Medications Albuterol/Ipratropium (Albuterol/Iprat 2.5/0.5mg 3 Ml Ampul.Neb) 3 ml INHALE RQ6H WHILE AWAKE [facility] Last Admin: 12/05/24 15:10 Dose: 3 ml Aspirin (Aspirin Enteric Coated 81 Mg Tablet.Dr) 81 mg PO BEDTIME BERTHA Last Admin: 12/04/24 20:14 Dose: 81 mg Bisacodyl (Bisacodyl 5 Mg Tablet.Dr) 10 mg PO BEDTIME PRN PRN Reason: Constipation Clopidogrel Bisulfate (Clopidogrel Bisulfate 75 Mg Tablet) 75 mg PO DAILY [facility] Last Admin: 12/05/24 09:22 Dose: 75 mg Guaifenesin/Dextromethorphan (Guaifenesin Dm 600/30 1 Tab Tab.Er.12h) 1 tab PO BID PRN PRN Reason: Cough Last Admin: 12/05/24 12:05 Dose: 1 tab Vancomycin HCl 500 mg/ Sodium (Chloride) 110 mls @ 110 mls/hr IV Q12H [facility] Last Admin: 12/05/24 19:40 Dose: 110 mls/hr Isosorbide Mononitrate (Isosorbide Mononitrate 30 Mg Tab.Er.24h) 30 mg PO DAILY [facility]; Protocol Last Admin: 12/05/24 09:22 Dose: 30 mg Levothyroxine Sodium (Levothyroxine Sodium 75 Mcg Tablet) 75 mcg PO DAILY@0600 [facility] Last Admin: 12/05/24 05:28 Dose: 75 mcg Lidocaine (Lidocaine 4 % Patch Adh..Patch) 1 patch TRANSDERMA DAILY [facility]; Protocol Last Admin: 12/05/24 09:23 Dose: Not Given Meropenem (Meropenem 1 Gm Vial) 1 gm IVPUSH Q8H [facility] Last Admin: 12/05/24 16:29 Dose: 1 gm Pharmacy Consult (Consult Rx Vancomycin Dosing) 1 each MISCELLANE DAILY PRN PRN Reason: Consult order Sodium Chloride (0.9 % Sodium Chloride Flush 3 Ml Syringe) 3 ml IVFLUSH QSHIFT [facility] Last Admin: 12/05/24 16:27 Dose: 3 ml Home Medications ?Medication ?Instructions ?Recorded ?Confirmed ?Last Taken ?Type gabapentin 600 mg tablet 1,200 mg PO BEDTIME 07/12/24 11/24/24 11/23/24 History ipratropium 0.5 mg-albuterol 3 mg 3 ml inhalation Q6H PRN wheezing 07/12/24 11/24/24 Unknown History (2.5 mg base)/3 mL nebulization soln clopidogrel 75 mg tablet 75 mg PO DAILY 08/21/24 11/24/24 11/24/24 History budesonide 0.25 mg/2 mL suspension 0.25 mg inhalation BID PRN 11/24/24 11/24/24 Unknown History for nebulization Shortness Of Breath Or Wheezing bupropion HCl 200 mg tablet,12 hr 200 mg PO DAILY 11/24/24 11/24/24 11/24/24 History sustained-release docusate sodium 100 mg capsule 100 mg PO DAILY PRN Constipation 11/24/24 11/24/24 11/24/24 History (Colace) levothyroxine 75 mcg tablet 75 mcg PO DAILY@0600 11/24/24 11/24/24 11/24/24 History melatonin 10 mg tablet 20 mg PO BEDTIME PRN Sleep 11/24/24 11/24/24 11/24/24 History omeprazole 20 mg capsule,delayed 20 mg PO BID@0630,1630 11/24/24 11/24/24 11/24/24 History release rivaroxaban 2.5 mg tablet (Xarelto) 2.5 mg PO BID 11/24/24 Unknown History sennosides 8.6 mg tablet (senna) 8.6 mg PO DAILY PRN Constipation 11/24/24 11/24/24 11/24/24 History thiamine HCl (vitamin B1) 100 mg 100 mg PO DAILY 11/24/24 11/24/24 11/24/24 History capsule Physical Exam 2 Vital Signs: Vital Signs: Last Vital Signs Temp 97.3 F 12/05/24 15:45 Pulse 112 H 12/05/24 19:00 Resp 24 H 12/05/24 19:00 BP 141/67 H 12/05/24 19:00 Pulse Ox 92 12/05/24 19:00 O2 Del Method High Flow Nasal C annula 12/05/24 19:00 O2 Flow Rate 55 12/05/24 19:00 FiO2 100 12/05/24 19:00 BMI result Body Mass Index 25.4 Results Labs 12/05/24 19:22 12/05/24 07:44 Labs: Short CBC 12/05/24 12/05/24 Range/Units 07:44 19:22 WBC 3.2 L 5.5 (4.8-10.8) X10*3/uL Hgb 10.5 L 10.5 L (12.0-16.0) g/dl Hct 30.2 L 29.9 L (37.0-47.0) % Plt Count 92 L D 101 L (160-400) X10*3/uL BMP 12/05/24 07:44 Sodium 138 Potassium 4.0 Chloride 97 Carbon Dioxide 31 H BUN 16 Creatinine 0.63 Calcium 8.3 L Liver Function 12/05/24 Range/Units 07:44 Total Bilirubin 1.1 H (0.0-1.0) mg/dL AST 74 H (5-31) U/L ALT 148 H (0-31) U/L Alkaline Phosphatase 205 H (39-117) U/L Albumin 2.7 L (3.5-5.0) g/dL Microbiology Microbiology Results: Microbiology 11/24/24 15:47 Blood - Venous Blood Culture - Final No growth after 5 days. 11/24/24 15:42 Blood - Venous Blood Culture - Final No growth after 5 days.
[2024-12-05 19:44] LABS: Alanine Aminotransferase 131 U/L (0-31); Albumin Level 2.7 g/dL (3.5-5.0); Alkaline Phosphatase 210 U/L (39-117); Anion Gap 14 (12-20); Aspartate Amino Transferase 69 U/L (5-31); Bilirubin Total 1.5 mg/dL (0.0-1.0); Blood Urea Nitrogen 16 mg/dL (9-16); Calcium 8.1 mg/dL (8.4-10.2); Carbon Dioxide 29 mmol/L (22-29); Chloride 94 mmol/L (96-108); Creatinine Clr Calc Pharmacy 80.1; Estimated Glomerular Filt Rate > 60; Glucose Random 121 mg/dL (60-115); Magnesium 1.8 mg/dL (1.6-2.6); Phosphorus 2.1 mg/dL (2.7-4.5); Potassium 3.9 mmol/L (3.3-5.1); Sodium 133 mmol/L (135-145); Total Protein 6.9 g/dL (6.5-8.0)
[2024-12-05 19:53] LABS: SLIDE REVIEW VERIFIED
--- NOTE | 2024-12-05 20:32 | PM.CCN ---
Critical Care Event Note Summary Date of Service: 12/05/24 Code activated: No Narrative: This case had a high probability of a clinically significant, sudden, or life threatening deterioration of this patient's condition which required my full and direct attention, intervention and personal management. Critical Care Time (minutes): 30 Comment: ?The patient is a 69-year-old female with a past medical history of carotid artery stenosis (s/p endarterectomy Jul 2024), peripheral vascular disease (s/p bypass, subclavian stenting), CKD, congestive heart failure with preserved EF,? renal artery stenosis, prior L3?L5 decompression, hypothyroidism, obesity, anxiety, depression, recent Streptococcus bacteremia , frequent falls, and recent admission at [facility] for small subacute subdural hematoma and acute delirium,? who presented to the emergency department on 11/24/2024 from? rehab facility with worsening shortness of breath, fever and weakness. ? Noted to be COVID-19 positive Patient admitted to hospital medicine for? acute hypoxic respiratory failure due to multifocal pneumonia from COVID-19 infection.? She was also noted to have osteomyelitis/discitis of L5/S1.? ID advise for vancomycin + ertapenem [meropenem while hospitalized] x 6 weeks (11/24-01/05/25).? ?Since admission patient has been on high-flow nasal cannula, but tonight,? patient became hypoxic to 70s,? on high-flow nasal cannula and non-rebreather,? tachypneic,? and tachycardic.?? ?Venous gas stable, white count stable, do not believe is worsening pneumonia.? Patient reported symptoms started after she was moved and was coughing.? ?Since arrival to the? ICU,? patient is only requiring high-flow nasal cannula at 55 L/100% ?Due to thrombocytopenia and recent subdural hematoma,? patient has been unable to be anticoagulated with heparin, ? Refuses to wear pneumatic boots.? She has been receiving aspirin and Plavix.? Unable to do CTA at this time due to patient unable to lay flat without? significant hypoxia. ? Will obtain D-dimer in bilateral lower extremity ultrasound studies.? ?CTA? of chest when patient is more stable? to rule out PE.? ?No evidence of severe sepsis type
[2024-12-05] MEDS: Aspirin Enteric Coated 81 MG TABLET.DR PO (20:47)
[2024-12-05] MEDS: Albumin Human 25 % 100 ML IV (21:12)
[2024-12-05] MEDS: Potassium Phosphate/NS 15 MMOL/250 ML PLAST..BAG 62.5 MMOL IV (21:12)
[2024-12-05 21:23] LABS: INTERNATIONAL NORM RATIO 1.1 (0.9-1.1); Prothrombin Time 12.5 SEC (10.9-12.4)
[2024-12-05 21:41] LABS: D Dimer High Sensitivity 7849 NG/ML
[2024-12-05] MEDS: Morphine Sulfate 2 MG/ML CARTRIDGE 1 MG IVPUSH (22:07)
[2024-12-05] MEDS: LORazepam 0.5 MG TABLET PO (22:08)
--- NOTE | 2024-12-05 22:21 | PC.NURSE ---
Assumed care of pt at 1900. Pt sitting up in bed, HOB up 60 degrees. HFNC on at55L/85%. No acute resp distress. O2 sat 93%. Respirations easy and regular 16-20/min. Lungs with few scattered ins/exp wheezes. Provider in with pt at 1900. Labs ordered. Venous doppler studies ordered and done. No clot noted. Sequential stockings on. Monitor show ST 102-106, no ectopy. Pt had 1 episode in past 4 hours of desatting down to 60's-70's when nasal prongs came out of nose. Prongs put back in place and NRB mask applied over HFNC. Pt started to get anxious but with deep breathing and reassurance, O2 sats came back up to 90's. NRB removed when O2 sat in 90's. Plan per provider is for pt to wear bipap overnight. Pt taking sips of water po. Kept asking for sleep medicine and pain medicine for back. Ativan 0.5mg po ordered and given. Morphine 1mg IV ordered and given. Pt resting comfortably at present.
[2024-12-05 23:04] LABS: ABG Refer to POC result
[2024-12-06] VITALS (41 sets, daily range): BP systolic 83–167; BP diastolic 45–91; PULSE 69–118; RESP 16–31; TEMP 35–39.4; O2SAT 88–100; BMI 28.0
[2024-12-06] MEDS: Furosemide 20 MG/2 ML VIAL IVPUSH (00:27)
[2024-12-06] MEDS: Albumin Human 25 % 100 ML IV ×3 (02:16→14:19)
[2024-12-06] MEDS: Morphine Sulfate 2 MG/ML CARTRIDGE 1 MG IVPUSH ×2 (02:16→08:01)
[2024-12-06] MEDS: Meropenem 1 GM VIAL IVPUSH ×3 (02:16→17:32)
[2024-12-06 05:03] LABS: VBG Base Excess 17.6 mmol/L; VBG HCO3 40 mmol/L (22-26); VBG pCO2 42 mmHg; VBG pH 7.58 (7.32-7.43); VBG pO2 105 mmHg
[2024-12-06 05:12] LABS: VBG Base Excess 14.9 mmol/L; VBG HCO3 38 mmol/L (22-26); VBG pCO2 41 mmHg; VBG pH 7.57 (7.32-7.43); VBG pO2 133 mmHg
[2024-12-06 05:19] LABS: MANUAL DIFF FLAG NO
[2024-12-06 05:25] LABS: Basophils Percent Auto 0.3 % (0-2); Eosinophils Percent Auto 1.2 % (0-4); Hematocrit 26.4 % (37.0-47.0); Hemoglobin 9.1 g/dl (12.0-16.0); Imm Gran Abs Auto 0.02 X10*3/uL (0.00-0.03); Imm Gran Pct Auto 0.6 % (0.0-0.4); Lymphocytes Absolute Auto 0.3 X10*3/uL (1.2-4.9); Lymphocytes Percent Auto 7.8 % (20-40); Mean Corpuscular HGB Conc 34.5 g/dl (31.0-35.0); Mean Corpuscular Hemoglobin 34.1 pg (27.0-33.0); Mean Corpuscular Volume 98.9 fL (80.0-98.0); Mean Platelet Volume 11.5 fL (9.4-12.3); Monocytes Absolute Auto 0.1 X10*3/uL (0.1-1.2); Monocytes Percent Auto 3.2 % (2-11); Neutrophils Percent Auto 86.9 % (45-73); Red Blood Count 2.67 X10*6/uL (4.20-5.50); Red Cell Distribution Width 14.4 % (11.0-16.0); White Blood Count 3.5 X10*3/uL (4.8-10.8)
[2024-12-06 05:26] LABS: Platelet Count 96 X10*3/uL (160-400)
[2024-12-06 05:43] LABS: Alanine Aminotransferase 97 U/L (0-31); Albumin Level 3.7 g/dL (3.5-5.0); Alkaline Phosphatase 167 U/L (39-117); Anion Gap 15 (12-20); Aspartate Amino Transferase 54 U/L (5-31); Bilirubin Total 1.8 mg/dL (0.0-1.0); Blood Urea Nitrogen 16 mg/dL (9-16); Calcium 8.6 mg/dL (8.4-10.2); Carbon Dioxide 32 mmol/L (22-29); Chloride 95 mmol/L (96-108); Estimated Glomerular Filt Rate > 60; Glucose Fasting 88 mg/dL (60-99); Glucose Random 88 mg/dL (60-115); Phosphorus 3.5 mg/dL (2.7-4.5); Potassium 3.4 mmol/L (3.3-5.1); Sodium 139 mmol/L (135-145); Total Protein 7.1 g/dL (6.5-8.0)
[2024-12-06 06:11] LABS: Venous Blood Gas Refer to POC result
[2024-12-06] MEDS: Levothyroxine Sodium 75 MCG TABLET PO (06:11)
--- NOTE | 2024-12-06 07:03 | HE.ICUCC ---
ICU Critical Care Nursing Note Assumed care of patient at 2300. ICU Day #:1 Neuro:A&Ox4 Cardiac:NSR Resp:LS scattered wheezes GI/: external catheter Integumentary/Musculoskeletal:Pressure injury to coccyx Lines: Peripheral IVs x3
[2024-12-06] MEDS: Clopidogrel Bisulfate 75 MG TABLET PO (07:44)
[2024-12-06] MEDS: vancomycin HCL 500 MG in 0.9 % Sodium Chloride 100 ML 110 MG IV (07:44)
[2024-12-06] MEDS: Albuterol/Iprat 2.5/0.5MG 3 ML AMPUL.NEB INHALE (07:53)
[2024-12-06] MEDS: Potassium Chloride Packet 20 MEQ PACKET 40 MEQ PO (07:56)
[2024-12-06] MEDS: Isosorbide Mononitrate 30 MG TAB.ER.24H PO (07:56)
[2024-12-06] MEDS: 0.9 % Sodium Chloride Flush 3 ML SYRINGE IVFLUSH ×2 (07:57→16:50)
[2024-12-06] MEDS: Furosemide 40 MG/4 ML VIAL IVPUSH (09:42)
[2024-12-06] MEDS: LORazepam 0.5 MG TABLET PO (09:46)
[2024-12-06] MEDS: propofoL 200 MG/20 ML VIAL 150 MG IVPUSH (10:50)
[2024-12-06] MEDS: propofoL 1,000 MG/100 ML VIAL 14.18 MG IVCONT (10:53)
[2024-12-06] MEDS: fentaNYL citrate/PF 100 MCG/2 ML VIAL IVPUSH (10:55)
[2024-12-06] MEDS: fentaNYL citrate/NS 1,000 MCG/100 ML PLAST..BAG 10 MCG IVCONT (10:57)
[2024-12-06] MEDS: Norepinephrine Bitartrate/D5W 8 MG/250 ML PLAST..BAG 7.39 MG IVCONT (11:21)
--- NOTE | 2024-12-06 11:22 | P.PNCC_ITS ---
Subjective Subjective Date of Service: 12/06/24 Interval History: 69-year-old lady, former 40 pack-year smoker quit 2023, with underlying COPD, carotid artery stenosis status post endarterectomy, CKD, diastolic heart failure, stenosis, hypothyroidism admitted on 11/24/2024 with dyspnea and hypoxia secondary to COVID pneumonia with possible bacterial superinfection and L5/S1 osteomyelitis/diskitis being treated with vancomycin/meropenem for 6 weeks with hospital course significant for progressive hypoxia requiring maximum high-flow support and transferred to intensive care unit on 12/05/2024, and intubation on 12/06/2024. No events overnight. Critical Care Time (minutes): 90 Physical Exam 2 Vital Signs: Vital Signs: Last Vital Signs Temp 102.9 F H 12/06/24 11:00 Pulse 118 H 12/06/24 11:00 Resp 24 H 12/06/24 11:00 BP 167/91 H 12/06/24 11:00 Pulse Ox 93 12/06/24 11:00 O2 Del Method Mechanical Ventil ation 12/06/24 11:00 O2 Flow Rate 55 12/06/24 10:00 FiO2 100 12/06/24 11:00 BMI result Body Mass Index 28.0 Const: General: no acute distress and other (Sedated on ventilatory support) Eyes: Sclerae: sclerae normal EOM: EOMs intact bilaterally Neck: Neck: Yes no lymphadenopathy, Yes trachea midline and Yes supple Resp: Auscultation: crackles (Bilateral) Cardio: Rate: tachycardic Rhythm: regular rhythm Heart sounds: no gallops, no murmurs and no rubs GI: Palpation (GI): Soft to palpation and Other GI palpation findings present ( Nontender) Auscultation: normal bowel sounds Extrem: General: Yes no pedal edema, No clubbing and No cyanosis Objective Data Labs 12/06/24 04:43 12/06/24 04:43 Labs: Laboratory Results - last 24 hr 12/05/24 12/05/24 12/05/24 17:07 18:46 19:22 WBC 5.5 RBC 3.12 L Hgb 10.5 L Hct 29.9 L MCV 95.8 MCH 33.7 H MCHC 35.1 H RDW 14.6 Plt Count 101 L MPV 11.1 Immature Gran % (Auto) 0.9 H Neut % (Auto) 92.7 H Lymph % (Auto) 2.2 L [place] % (Auto) 3.5 Eos % (Auto) 0.5 Baso % (Auto) 0.2 Lymph # (Auto) 0.1 L [place] # (Auto) 0.2 Eos # (Auto) 0.0 Baso # (Auto) 0.0 Abs Immat Gran (auto) 0.05 H Absolute Neuts (auto) 5.1 Absolute Nucleated RBC 0.000 Nucleated RBC % (auto) 0.0 Smear Tech's Comments VERIFIED PT 12.5 H INR 1.1 D-Dimer High Sensitivty 7849 O2 Saturation 97.0 ABG pH at Pt Temp 7.53 H ABG pCO2 at Pt Temp 38 ABG pO2 at Pt Temp 90 ABG HCO3 33 H ABG Base Excess (Actual) 9.9 VBG pH VBG pCO2 VBG pO2 VBG HCO3 VBG O2 Saturation VBG Base Excess Sodium 133 L Potassium 3.9 Chloride 94 L Carbon Dioxide 29 Anion Gap 14 BUN 16 Creatinine 0.69 Estim Creat Clear Calc 80.1 Estimated GFR > 60 Random Glucose 121 H Fasting Glucose Calcium 8.1 L Phosphorus 2.1 L Magnesium 1.8 Total Bilirubin 1.5 H AST 69 H ALT 131 H Alkaline Phosphatase 210 H Total Protein 6.9 Albumin 2.7 L 12/06/24 12/06/24 12/06/24 04:43 04:58 05:03 WBC 3.5 L RBC 2.67 L Hgb 9.1 L Hct 26.4 L MCV 98.9 H MCH 34.1 H MCHC 34.5 RDW 14.4 Plt Count 96 L MPV 11.5 Immature Gran % (Auto) 0.6 H Neut % (Auto) 86.9 H Lymph % (Auto) 7.8 L [place] % (Auto) 3.2 Eos % (Auto) 1.2 Baso % (Auto) 0.3 Lymph # (Auto) 0.3 L [place] # (Auto) 0.1 Eos # (Auto) 0.0 Baso # (Auto) 0.0 Abs Immat Gran (auto) 0.02 Absolute Neuts (auto) 3.0 Absolute Nucleated RBC 0.000 Nucleated RBC % (auto) 0.0 Smear Tech's Comments PT INR D-Dimer High Sensitivty O2 Saturation ABG pH at Pt Temp ABG pCO2 at Pt Temp ABG pO2 at Pt Temp ABG HCO3 ABG Base Excess (Actual) VBG pH 7.58 H 7.57 H VBG pCO2 42 41 VBG pO2 105 133 VBG HCO3 40 H 38 H VBG O2 Saturation 100.0 VBG Base Excess 17.6 14.9 Sodium 139 Potassium 3.4 Chloride 95 L Carbon Dioxide 32 H Anion Gap 15 BUN 16 Creatinine 0.65 Estim Creat Clear Calc 85.0 Estimated GFR > 60 Random Glucose 88 Fasting Glucose 88 Calcium 8.6 D Phosphorus 3.5 Magnesium 2.0 Total Bilirubin 1.8 H AST 54 H ALT 97 H Alkaline Phosphatase 167 H Total Protein 7.1 Albumin 3.7 Microbiology Microbiology Results: Microbiology 11/24/24 15:47 Blood - Venous Blood Culture - Final No growth after 5 days. 11/24/24 15:42 Blood - Venous Blood Culture - Final No growth after 5 days. Progress Note: A&P Assessment and plan (1) CAD (coronary artery disease), [place] coronary artery: Status: Acute (2) PVD (peripheral vascular disease): Status: Acute (3) COPD (chronic obstructive pulmonary disease): Status: Acute (4) Acute hypoxic respiratory failure: Status: Acute (5) Pneumonia due to COVID-19 virus: Status: Acute Plan Assessment: 69-year-old lady with underlying COPD, CAD, CKD, PVD admitted with acute hypoxic respiratory failure secondary to COVID pneumonia and also L5/S1 osteomyelitis, hospital course significant for progressive hypoxia now requiring ventilatory support Plan: Neuro: No acute issues. Recent history of subdural hematoma. Cardiac: No acute issues. Underlying CAD and PVD. Continue Plavix, aspirin, and Imdur. Pulmonary: Acute hypoxic respiratory failure on background of COVID pneumonia requiring ventilatory support. Continue to titrate off as tolerated. Renal: No acute issues. Underlying CKD. Endo: No acute issues. Underlying hypothyroidism. GI: No acute issues. ID: Meropenem/vancomycin for diskitis/osteomyelitis of L5/S1. Heme/Onc: No acute issues. Psych: No acute issues. Miscellaneous: No acute issues. Prophylaxis: Pneumatic compression, famotidine Diet: Tube feeds Critical care time spent: 90 minutes excluding separately billable procedures. Quality Stroke Does the patient have a stroke diagnosis?: No VTE Prior VTE?: No VTE Risk Level:: Medical - moderate - high VTE Device Contraindication: Treatment Not Indicated VTE Drug Contraindication: N/A - Med Ordered
[2024-12-06] MEDS: Acetaminophen Oral Liquid 650 MG/20.3 ML SOLUTION PO (11:35)
--- NOTE | 2024-12-06 11:46 | W.PM.CCHP ---
Procedures Date of Service Date of Service: 12/06/24 Intubation Intubation Comments: Patient with worsening hypoxemia refractory to high-flow nasal cannula support requiring emergent intubation. Patient intubated with 7.5 cuffed ET tube under glide scope guidance with no immediate complications. ET tube position verified on chest x-ray. Sedative: propofol Mg given: 150
[2024-12-06] MEDS: propofoL 1,000 MG/100 ML VIAL 23.64 MG IVCONT ×3 (14:19→22:00)
[2024-12-06] MEDS: Chlorhexidine Gluc Oral Rinse 15 ML MOUTHWASH BUCCAL ×2 (14:19→19:37)
[2024-12-06] MEDS: fentaNYL citrate/NS 1,000 MCG/100 ML PLAST..BAG 12.5 MCG IVCONT (17:17)
[2024-12-06 18:41] LABS: Vancomycin Random 20.2 mcg/mL (15-20)
[2024-12-06] MEDS: Aspirin 81 MG TAB.CHEW PO (19:37)
[2024-12-07] VITALS (49 sets, daily range): BP systolic 65–209; BP diastolic 33–88; PULSE 77–109; RESP 16–20; TEMP 34.8–38.8; O2SAT 89–100; BMI 24.9
[2024-12-07] MEDS: 0.9 % Sodium Chloride Flush 3 ML SYRINGE IVFLUSH ×3 (00:36→15:22)
[2024-12-07] MEDS: propofoL 1,000 MG/100 ML VIAL 23.64 MG IVCONT ×7 (00:57→23:45)
[2024-12-07] MEDS: fentaNYL citrate/NS 1,000 MCG/100 ML PLAST..BAG 7.5 MCG IVCONT (02:10)
[2024-12-07] MEDS: Meropenem 1 GM VIAL IVPUSH ×3 (02:10→17:46)
[2024-12-07] MEDS: Acetaminophen Oral Liquid 650 MG/20.3 ML SOLUTION PO ×2 (02:46→20:24)
[2024-12-07 05:17] LABS: VBG Base Excess 11.5 mmol/L; VBG HCO3 33 mmol/L (22-26); VBG pCO2 32 mmHg; VBG pH 7.61 (7.32-7.43); VBG pO2 98 mmHg
[2024-12-07 05:24] LABS: Venous Blood Gas Refer to POC result
[2024-12-07] MEDS: Levothyroxine Sodium 75 MCG TABLET PO (05:32)
[2024-12-07 05:39] LABS: Hematocrit 28.1 % (37.0-47.0); Hemoglobin 9.8 g/dl (12.0-16.0); Mean Corpuscular HGB Conc 34.9 g/dl (31.0-35.0); Mean Corpuscular Hemoglobin 34.6 pg (27.0-33.0); Mean Corpuscular Volume 99.3 fL (80.0-98.0); Mean Platelet Volume 10.9 fL (9.4-12.3); Platelet Count 129 X10*3/uL (160-400); Red Blood Count 2.83 X10*6/uL (4.20-5.50); Red Cell Distribution Width 14.8 % (11.0-16.0); White Blood Count 7.1 X10*3/uL (4.8-10.8)
[2024-12-07 05:56] LABS: Alanine Aminotransferase 61 U/L (0-31); Alkaline Phosphatase 167 U/L (39-117); Anion Gap 18 (12-20); Aspartate Amino Transferase 44 U/L (5-31); Blood Urea Nitrogen 32 mg/dL (9-16); Calcium 9.4 mg/dL (8.4-10.2); Carbon Dioxide 28 mmol/L (22-29); Chloride 97 mmol/L (96-108); Creatinine Clr Calc Pharmacy 43.3; Estimated Glomerular Filt Rate 46; Glucose Fasting 120 mg/dL (60-99); Glucose Random 120 mg/dL (60-115); Magnesium 2.2 mg/dL (1.6-2.6); Phosphorus 2.8 mg/dL (2.7-4.5); Potassium 3.6 mmol/L (3.3-5.1); Sodium 139 mmol/L (135-145); Total Protein 7.4 g/dL (6.5-8.0)
[2024-12-07 06:09] LABS: Band Neutrophils Percent 9 % (3-5); Eosinophils Absolute Manual 0.1 X10*3/uL (0.0-0.4); Eosinophils Percent Manual 1 % (0-4); Lymphocytes Absolute Manual 0.4 X10*3/uL (1.2-4.9); Lymphocytes Percent Manual 5 % (20-40); Metamyelocytes Absolute 0.1 X10*3/uL; Metamyelocytes Percent 1 %; Microcytosis 2+ (15-30) /OIF; Monocytes Absolute Manual 0.1 X10*3/uL (0.1-1.2); Monocytes Percent Manual 2 % (2-11); Neutrophils Absolute Manual 6.5 X10*3/uL (2.0-8.3); Neutrophils Percent Manual 82 % (45-73); Platelet Estimate SLIGHTLY DECREASED (NORMAL); Platelet Morphology Comment NORMAL; RBC Morphology NOTED
[2024-12-07 06:10] LABS: Ovalocytes 2+ (15-30) /OIF; Polychromasia 1+ (0-2) /OIF; Spherocytes 1+ (0-2) /OIF; Tear Drop Cells 1+ (0-2) /OIF; Toxic Granulation PRESENT; Toxic Vacuolation PRESENT
[2024-12-07 06:11] LABS: Dohle Bodies PRESENT
--- NOTE | 2024-12-07 06:33 | PC.NURSE ---
Assumed care 1899 - pt intubated and sedated, on propofol and fentanyl?- see MAR for titrations. On ACPC settings - see vent assessment. Levophed titrated to maintain MAP >65 - see MAR.?Temperature 101.5 - ice packs applied and tylenol administered per AUG. Tolerating tube feeds, advanced to goal per order. Pt retaining urine - bladder?scan and straight?cath completed x1 per [employer] Eder. See I&O/straight cath assessment. Bladder scan at 0600 - 290 ml, no order for straight cath at this time. Pt with large bruise/swelling to R upper arm from IV insertion attempt, ice applied. [employer] GRADER? made aware,? po plavix and aspirin held. Unstageable to coccyx - new triad and foam applied per wound care order. Hygiene provided, repositioned?Q2.?
--- NOTE | 2024-12-07 09:14 | P.PNCC_ITS ---
Subjective Subjective Date of Service: 12/07/24 Critical Care Time (minutes): 35 Comment: no new events on vent support, minimal inline secretions no fever Physical Exam 2 Vital Signs: Vital Signs: Last Vital Signs Temp 99.7 F 12/07/24 08:00 Pulse 88 12/07/24 08:00 Resp 16 12/07/24 08:00 BP 120/44 L 12/07/24 08:00 Pulse Ox 92 12/07/24 08:00 O2 Del Method Mechanical Ventil ation 12/07/24 08:00 O2 Flow Rate 55 12/06/24 10:00 FiO2 55 12/07/24 08:00 BMI result Body Mass Index 24.9 General: Elderly lady in acute distress, chronically ill appearing and tired appearing Nutritional Appearance: well nourished and overweight Eyes: appearance normal, both eyes and all related structures; Alignment and Position: alignment normal and position normal Neck: No lymphadenopathy, no thyromegaly Resp: bilateral air entry equal, occasional added sounds present, ET tube in place Cardio: Regular rate, regular rhythm; Heart sounds: S1 normal heart sound present and S2 normal heart sound present GI: soft, nontender, no guarding, no hepatosplenomegaly : bladder normal to inspection, bladder normal to palpation, no renal angle tenderness Skin: no rashes or lesions noted and elasticity normal Neuro: Can not do neuro exam as patient is sedated on the vent Objective Data Labs 12/07/24 05:07 12/07/24 05:07 Labs: Laboratory Results - last 24 hr 12/06/24 12/06/24 12/07/24 04:58 17:16 05:07 WBC 7.1 RBC 2.83 L Hgb 9.8 L Hct 28.1 L MCV 99.3 H MCH 34.6 H MCHC 34.9 RDW 14.8 Plt Count 129 L D MPV 10.9 Immature Gran % (Auto) Cancelled Neut % (Auto) Cancelled Lymph % (Auto) Cancelled [place] % (Auto) Cancelled Eos % (Auto) Cancelled Baso % (Auto) Cancelled Lymph # (Auto) Cancelled [place] # (Auto) Cancelled Eos # (Auto) Cancelled Baso # (Auto) Cancelled Abs Immat Gran (auto) Cancelled Absolute Neuts (auto) Cancelled Absolute Nucleated RBC 0.000 Nucleated RBC % (auto) 0.0 Neutrophils % (Manual) 82 H Band Neutrophils % 9 H Lymphocytes % (Manual) 5 L Monocytes % (Manual) 2 Eosinophils % (Manual) 1 Metamyelocytes % 1 Abs Neuts (Manual) 6.5 Lymphocytes # (Manual) 0.4 L Monocytes # (Manual) 0.1 Eosinophils # (Manual) 0.1 Metamyelocytes # 0.1 Toxic Granulation PRESENT Toxic Vacuolation PRESENT Dohle Bodies PRESENT Platelet Estimate SLIGHTLY DECREASED Plt Morphology Comment NORMAL RBC Morphology NOTED Polychromasia 1+ (0-2) Microcytosis 2+ (15-30) Spherocytes 1+ (0-2) Tear Drop Cells 1+ (0-2) Ovalocytes 2+ (15-30) VBG pH VBG pCO2 VBG pO2 VBG HCO3 VBG O2 Saturation TNP VBG Base Excess Sodium 139 Potassium 3.6 Chloride 97 Carbon Dioxide 28 Anion Gap 18 BUN 32 H Creatinine 1.18 Estim Creat Clear Calc 43.3 Estimated GFR 46 Random Glucose 120 H Fasting Glucose 120 H Calcium 9.4 D Phosphorus 2.8 Magnesium 2.2 Total Bilirubin 4.0 H AST 44 H ALT 61 H Alkaline Phosphatase 167 H Total Protein 7.4 Albumin 4.0 Random Vancomycin 20.2 H 12/07/24 05:14 WBC RBC Hgb Hct MCV MCH MCHC RDW Plt Count MPV Immature Gran % (Auto) Neut % (Auto) Lymph % (Auto) [place] % (Auto) Eos % (Auto) Baso % (Auto) Lymph # (Auto) [place] # (Auto) Eos # (Auto) Baso # (Auto) Abs Immat Gran (auto) Absolute Neuts (auto) Absolute Nucleated RBC Nucleated RBC % (auto) Neutrophils % (Manual) Band Neutrophils % Lymphocytes % (Manual) Monocytes % (Manual) Eosinophils % (Manual) Metamyelocytes % Abs Neuts (Manual) Lymphocytes # (Manual) Monocytes # (Manual) Eosinophils # (Manual) Metamyelocytes # Toxic Granulation Toxic Vacuolation Dohle Bodies Platelet Estimate Plt Morphology Comment RBC Morphology Polychromasia Microcytosis Spherocytes Tear Drop Cells Ovalocytes VBG pH 7.61 H* VBG pCO2 32 VBG pO2 98 VBG HCO3 33 H VBG O2 Saturation 99.0 VBG Base Excess 11.5 Sodium Potassium Chloride Carbon Dioxide Anion Gap BUN Creatinine Estim Creat Clear Calc Estimated GFR Random Glucose Fasting Glucose Calcium Phosphorus Magnesium Total Bilirubin AST ALT Alkaline Phosphatase Total Protein Albumin Random Vancomycin Microbiology Microbiology Results: Microbiology 11/24/24 15:47 Blood - Venous Blood Culture - Final No growth after 5 days. 11/24/24 15:42 Blood - Venous Blood Culture - Final No growth after 5 days. Progress Note: A&P Assessment and plan (1) Multifocal pneumonia: Status: Acute (2) COPD with acute exacerbation: Status: Acute (3) COPD (chronic obstructive pulmonary disease): Status: Acute (4) Hypothyroidism: Status: Acute Plan Neuro: Acute encephalopathy possibly due to metabolic encephalopathy On propofol for sedation, as needed fentanyl for analgesia Close neurological status monitoring in the ICU every hour Cardiac: Cardiogenic Shock: Possibly secondary to positive pressure ventilator On Levophed support, titrate Levophed to keep map above 65 mm Hg Respiratory: Acute hypoxemic respiratory failure due to unspecified bilateral pneumonia Currently on ventilator support On P pressure control mode FiO2 55, 14/5 from 18/5 as pH was 7.61 this morning Peak pressures and plateau pressures are under the curve Ventilator management bundle with head end elevation, aspiration precaution, chlorhexidine mouthwash, daily awakening trials, daily spontaneous breathing trials GI: on tube feeds Renal: Renal function stable We will closely monitor I's and O's Avoid nephrotoxic medications Heme: Chronic anemia, closely monitor H&H, transfuse for hemoglobin less than 7 grams/deciliter Endocrine: Blood sugars under control Sliding scale insulin as needed Infectious disease: Has chronic lumbar vertebral osteomyelitis Continue vancomycin and meropenem as per ID Vancomycin level was 20.5 on 500 mg b.i.d., so dosage dropped to 750 mg daily Musculoskeletal: Decubitus ulcer prevention protocol Lines: Peripheral Prophylaxis: Lovenox, pantoprazole Quality Stroke Does the patient have a stroke diagnosis?: No VTE Prior VTE?: No VTE Risk Level:: Medical - moderate - high VTE Device Contraindication: Treatment Not Indicated VTE Drug Contraindication: N/A - Med Ordered
--- NOTE | 2024-12-07 09:18 | HE.PHANOTE ---
VANCO DOSE ADJUSTMENT PATIENT SCR INCREASE FROM 0.65 TO 1.18. DOSE CHANGED FROM 500 Q 12H TO 750 Q 24H. NEXT LEVEL 12/08 @ 0800
[2024-12-07] MEDS: Famotidine/PF 20 MG/2 ML VIAL IVPUSH (09:45)
[2024-12-07] MEDS: Chlorhexidine Gluc Oral Rinse 15 ML MOUTHWASH BUCCAL ×3 (09:45→20:24)
--- NOTE | 2024-12-07 11:05 | MHC.CLN ---
CONSULT PT IS INTUBATED AND SEDATED DISCUSSED AT ROUNDS WITH MD RECOMMEND DECREASING TF TO PROMOTE AT MAX GOAL RATE 50ML/HR WITH 120ML FREE WATER FLUSHES Q 6 HRS TO PROVIDE 1200KCALS (1824KCALS WITH SEDATION; 31KCALS/KG), 75G PROTEIN (1.3G/KG), 1487ML TOTAL WATER FROM FORMULA AND FLUSHES (25ML/KG) MONITOR TOLERANCE AND LYTES NOTED STAGE U COCCYX -TF WILL PROMOTE SLOW WOUND HEALING AT 1.3G/KG PROTEIN SEE ALSO FULL CLINICAL NUTRITION ASSESSMENT
[2024-12-07] MEDS: fentaNYL citrate/NS 1,000 MCG/100 ML PLAST..BAG 10 MCG IVCONT ×2 (11:50→22:06)
[2024-12-07] MEDS: Norepinephrine Bitartrate/D5W 8 MG/250 ML PLAST..BAG 7.39 MG IVCONT (11:53)
--- NOTE | 2024-12-07 14:57 | MHC.CM.PN ---
Pt continues on ventilatory support in ICU: Plan for today: wean FiO2 requirements in anticipation of eventual extubation. Pt from home with dtr and HVNA. CM to follow for modification in d/c plan
--- NOTE | 2024-12-07 20:16 | PC.NURSE ---
Neuro: sedated and intubated, +gag and cough both weak, grimaces with care and withdrawals from pain Resp: see vent and shift assessment for full details,? Cardiac: SR, no edema, See MAR for Levophed dosing,? GI/: NPO tube feeds changed as ordered and water flushed given as ordered, patient bladder scanned as required, SC x1 and Strauss placed at 1800 for continued retention. Integumentary/Musculoskeletal: pink foam with barrier cream to gluteal crease for unstageable area, barrier cream applied to groin for redness.
[2024-12-08] VITALS (50 sets, daily range): BP systolic 78–166; BP diastolic 33–54; PULSE 73–125; RESP 14–18; TEMP 35–39.2; O2SAT 88–96; BMI 25.9
[2024-12-08] MEDS: Meropenem 1 GM VIAL IVPUSH ×3 (01:09→17:17)
[2024-12-08] MEDS: 0.9 % Sodium Chloride Flush 3 ML SYRINGE IVFLUSH ×3 (01:10→15:31)
[2024-12-08] MEDS: propofoL 1,000 MG/100 ML VIAL 23.64 MG IVCONT ×6 (03:54→22:04)
[2024-12-08 04:28] LABS: VBG Base Excess 6.5 mmol/L; VBG HCO3 29 mmol/L (22-26); VBG pCO2 35 mmHg; VBG pH 7.52 (7.32-7.43); VBG pO2 80 mmHg
[2024-12-08 04:37] LABS: Venous Blood Gas Refer to POC result
[2024-12-08 05:14] LABS: Basophils Percent Auto 0.6 % (0-2); Eosinophils Absolute Auto 0.2 X10*3/uL (0.0-0.4); Hematocrit 25.2 % (37.0-47.0); Hemoglobin 9.7 g/dl (12.0-16.0); Imm Gran Abs Auto 0.08 X10*3/uL (0.00-0.03); Imm Gran Pct Auto 1.2 % (0.0-0.4); Lymphocytes Absolute Auto 0.4 X10*3/uL (1.2-4.9); Lymphocytes Percent Auto 6.5 % (20-40); MANUAL DIFF FLAG SCAN; Mean Corpuscular HGB Conc 38.5 g/dl (31.0-35.0); Mean Corpuscular Hemoglobin 39.9 pg (27.0-33.0); Mean Corpuscular Volume 103.7 fL (80.0-98.0); Mean Platelet Volume 10.9 fL (9.4-12.3); Monocytes Absolute Auto 0.2 X10*3/uL (0.1-1.2); Monocytes Percent Auto 3.2 % (2-11); Neutrophils Absolute Auto 5.7 x10*3/uL (2.0-8.3); Neutrophils Percent Auto 85.5 % (45-73); PLT CLUMP 1; Red Blood Count 2.43 X10*6/uL (4.20-5.50); Red Cell Distribution Width 15.3 % (11.0-16.0); SCAN SMEAR FLAG 1
[2024-12-08 05:29] LABS: Alanine Aminotransferase 45 U/L (0-31); Albumin Level 3.3 g/dL (3.5-5.0); Alkaline Phosphatase 166 U/L (39-117); Anion Gap 19 (12-20); Aspartate Amino Transferase 49 U/L (5-31); Bilirubin Total 2.2 mg/dL (0.0-1.0); Blood Urea Nitrogen 51 mg/dL (9-16); Calcium 9.3 mg/dL (8.4-10.2); Carbon Dioxide 26 mmol/L (22-29); Chloride 100 mmol/L (96-108); Creatinine Clr Calc Pharmacy 25.2; Estimated Glomerular Filt Rate 24; Glucose Fasting 116 mg/dL (60-99); Magnesium 2.6 mg/dL (1.6-2.6); Phosphorus 5.3 mg/dL (2.7-4.5); Potassium 3.9 mmol/L (3.3-5.1); Sodium 141 mmol/L (135-145); Total Protein 7.1 g/dL (6.5-8.0)
[2024-12-08 05:45] LABS: Platelet Count 125 X10*3/uL (160-400); White Blood Count 6.7 X10*3/uL (4.8-10.8)
[2024-12-08 05:46] LABS: SLIDE REVIEW VERIFIED
[2024-12-08] MEDS: Levothyroxine Sodium 75 MCG TABLET PO (06:07)
--- NOTE | 2024-12-08 06:37 | PC.NURSE ---
late note: 12/06/24 Assumed care at 0700. Pt on HFNC, 55L at 70%. Pt desats rapidly with coughing & movement. NRB mask used to recuperate with positive results. Pt complained of increasing respiratory fatigue and asked MD about intubation. Family at bedside discussed with MD. MD agreed to intubation. RT called to bedside. Pt intubated uneventfully at 1055. Propofol and fentanyl drips started. Levophed drip started. Some blood tinged secretions noted orally. MD made aware. Family at bedside after intubation. Based on xray, OG tube advanced per MD recommendation. See MAR and assessments for further details. Pt repositioned q2hr as tolerated. High fall risk precautions in place.
[2024-12-08] MEDS: Chlorhexidine Gluc Oral Rinse 15 ML MOUTHWASH BUCCAL ×3 (07:38→20:01)
--- NOTE | 2024-12-08 08:14 | PM.CCPN ---
Subjective Subjective Date of Service: 12/08/24 Interval History: Continues to be on ventilator support On Levophed for vasopressor support Critical Care Time (minutes): 35 Physical Exam Vital Signs: Vital Signs: Last Vital Signs Temp 99.1 F 12/08/24 07:00 Pulse 82 12/08/24 08:01 Resp 18 12/08/24 07:00 BP 166/49 H 12/08/24 08:01 Pulse Ox 93 12/08/24 07:39 O2 Del Method Mechanical Ventil ation 12/08/24 07:00 O2 Flow Rate 55 12/06/24 10:00 FiO2 50 12/08/24 07:39 BMI result Body Mass Index 25.9 General: Elderly lady in acute distress, she is ill appearing and tired appearing Nutritional Appearance: well nourished and overweight Eyes: appearance normal, both eyes and all related structures; Alignment and Position: alignment normal and position normal Neck: No lymphadenopathy, no thyromegaly Resp: bilateral air entry equal, bilateral diffuse crackles heard Cardio: Regular rate, regular rhythm; Heart sounds: S1 normal heart sound present and S2 normal heart sound present GI: soft, nontender, no guarding, no hepatosplenomegaly : bladder normal to inspection, bladder normal to palpation, no renal angle tenderness Skin: no rashes or lesions noted and elasticity normal Neuro: Sedated, no focal deficits Objective Data Labs 12/08/24 04:19 12/08/24 04:19 Labs: Laboratory Results - last 24 hr 12/08/24 12/08/24 04:19 04:24 WBC 6.7 RBC 2.43 L Hgb 9.7 L Hct 25.2 L MCV 103.7 H MCH 39.9 H MCHC 38.5 H RDW 15.3 Plt Count 125 L MPV 10.9 Immature Gran % (Auto) 1.2 H Neut % (Auto) 85.5 H Lymph % (Auto) 6.5 L [place] % (Auto) 3.2 Eos % (Auto) 3.0 Baso % (Auto) 0.6 Lymph # (Auto) 0.4 L [place] # (Auto) 0.2 Eos # (Auto) 0.2 Baso # (Auto) 0.0 Abs Immat Gran (auto) 0.08 H Absolute Neuts (auto) 5.7 Absolute Nucleated RBC 0.000 Nucleated RBC % (auto) 0.0 Smear Tech's Comments VERIFIED VBG pH 7.52 H VBG pCO2 35 VBG pO2 80 VBG HCO3 29 H VBG O2 Saturation 96.0 VBG Base Excess 6.5 Sodium 141 Potassium 3.9 Chloride 100 Carbon Dioxide 26 Anion Gap 19 BUN 51 H Creatinine 2.03 H Estim Creat Clear Calc 25.2 Estimated GFR 24 Fasting Glucose 116 H Calcium 9.3 Phosphorus 5.3 H Magnesium 2.6 Total Bilirubin 2.2 H AST 49 H ALT 45 H Alkaline Phosphatase 166 H Total Protein 7.1 Albumin 3.3 L Microbiology Microbiology Results: Microbiology 11/24/24 15:47 Blood - Venous Blood Culture - Final No growth after 5 days. 11/24/24 15:42 Blood - Venous Blood Culture - Final No growth after 5 days. Progress Note: A&P Assessment and plan (1) CKD (chronic kidney disease) stage 3, GFR 30-59 ml/min: Status: Chronic (2) Atrophic kidney: Status: Acute (3) COPD (chronic obstructive pulmonary disease): Status: Acute (4) COPD with acute exacerbation: Status: Acute (5) Multifocal pneumonia: Status: Acute (6) Acute hypoxic respiratory failure: Status: Acute Plan Neuro: Acute encephalopathy possibly due to metabolic encephalopathy On propofol for sedation, as needed fentanyl for analgesia Close neurological status monitoring in the ICU every hour Cardiac: Cardiogenic Shock: Possibly secondary to positive pressure ventilator On Levophed support, titrate Levophed to keep map above 65 mm Hg Respiratory: Acute hypoxemic respiratory failure due to unspecified bilateral pneumonia Currently on ventilator support On P pressure control mode FiO2 decreased to 50%, 14/5 from 18/5 as pH was 7.61 this morning Peak pressures and plateau pressures are under the curve Ventilator management bundle with head end elevation, aspiration precaution, chlorhexidine mouthwash, daily awakening trials, daily spontaneous breathing trials GI: on tube feeds Renal: Renal function worsening, will do a bedside echo to evaluate hemodynamic status. We will closely monitor I's and O's Avoid nephrotoxic medications Heme: Chronic anemia, closely monitor H&H, transfuse for hemoglobin less than 7 grams/deciliter Endocrine: Blood sugars under control Sliding scale insulin as needed Infectious disease: Has chronic lumbar vertebral osteomyelitis Continue vancomycin and meropenem as per ID Vancomycin level was 20.5 on 500 mg b.i.d., currently on 750 mg daily Musculoskeletal: Decubitus ulcer prevention protocol Lines: Peripheral Prophylaxis: Lovenox, pantoprazole Quality Stroke Does the patient have a stroke diagnosis?: No VTE Prior VTE?: No VTE Risk Level:: Medical - moderate - high VTE Device Contraindication: Treatment Not Indicated VTE Drug Contraindication: N/A - Med Ordered
[2024-12-08 09:43] LABS: Vancomycin Random 15.3 mcg/mL (15-20)
[2024-12-08] MEDS: fentaNYL citrate/NS 1,000 MCG/100 ML PLAST..BAG 10 MCG IVCONT (09:53)
[2024-12-08] MEDS: Famotidine/PF 20 MG/2 ML VIAL IVPUSH (09:54)
[2024-12-08] MEDS: vancomycin HCL 500 MG in 0.9 % Sodium Chloride 100 ML 110 MG IV (11:22)
--- NOTE | 2024-12-08 11:49 | MHC.CM.PN ---
Pt continues on ventilatory support in ICU w/+ COVID PNA. Plan for the day: allow for resting and try for sedation weaning on 12/09. Pt is from home w/dtr but was recently at [facility]. A referral has been made to SNF should pt require STR. CM to follow
[2024-12-08] MEDS: Norepinephrine Bitartrate/D5W 8 MG/250 ML PLAST..BAG 13.3 MG IVCONT (13:04)
[2024-12-08] MEDS: Acetaminophen Oral Liquid 650 MG/20.3 ML SOLUTION PO ×2 (13:49→21:29)
[2024-12-08] MEDS: fentaNYL citrate/NS 1,000 MCG/100 ML PLAST..BAG 12.5 MCG IVCONT (19:03)
--- NOTE | 2024-12-08 19:19 | PC.NURSE ---
Assumed care at 0700. Pt remains intubated, on sedative and cardiac drips. Per MD, no plans for sedation vacation or PSV trial today. Pt desats with movement, will somewhat break through sedation with noxious stimulus. See MAR and assessments for further details. Pt repositioned q2hr as tolerated. Fall/safety measures in place.
[2024-12-09] VITALS (44 sets, daily range): BP systolic 84–181; BP diastolic 35–75; PULSE 86–123; RESP 15–17; TEMP 34.1–38.9; O2SAT 91–97; BMI 25.8
[2024-12-09 00:02] LABS: Alanine Aminotransferase 41 U/L (0-31); Alkaline Phosphatase 179 U/L (39-117); Anion Gap 15 (12-20); Aspartate Amino Transferase 66 U/L (5-31); Bilirubin Total 2.4 mg/dL (0.0-1.0); Blood Urea Nitrogen 63 mg/dL (9-16); Calcium 9.3 mg/dL (8.4-10.2); Carbon Dioxide 27 mmol/L (22-29); Chloride 100 mmol/L (96-108); Creatinine Clr Calc Pharmacy 21.9; Estimated Glomerular Filt Rate 19; Glucose Random 152 mg/dL (60-115); Potassium 4.2 mmol/L (3.3-5.1); Sodium 138 mmol/L (135-145); Total Protein 7.3 g/dL (6.5-8.0)
[2024-12-09] MEDS: 0.9 % Sodium Chloride Flush 3 ML SYRINGE IVFLUSH ×4 (00:19→23:40)
[2024-12-09] MEDS: Meropenem 1 GM VIAL IVPUSH (01:07)
[2024-12-09] MEDS: propofoL 1,000 MG/100 ML VIAL 23.64 MG IVCONT ×3 (01:20→08:39)
[2024-12-09] MEDS: Lactated Ringers 1,000 ML 100 ML IVCONT ×3 (01:21→20:33)
[2024-12-09] MEDS: Norepinephrine Bitartrate/D5W 8 MG/250 ML PLAST..BAG 19.21 MG IVCONT (01:54)
[2024-12-09] MEDS: fentaNYL citrate/NS 1,000 MCG/100 ML PLAST..BAG 12.5 MCG IVCONT (01:55)
[2024-12-09 05:35] LABS: VBG Base Excess 1.3 mmol/L; VBG HCO3 24 mmol/L (22-26); VBG pCO2 34 mmHg; VBG pH 7.45 (7.32-7.43); VBG pO2 141 mmHg
[2024-12-09 06:22] LABS: MANUAL DIFF FLAG NO
[2024-12-09 06:26] LABS: Venous Blood Gas Refer to POC result
[2024-12-09] MEDS: Levothyroxine Sodium 75 MCG TABLET PO (06:29)
--- NOTE | 2024-12-09 06:36 | PC.NURSE ---
Assumed care of patient at 1900.? Patient continues to be sedated, RASS -3. No gag, weak cough, no pain response. Pupils 3mm, sluggish. Mechanically ventilated: ACPC 50%. ET tube: 7.5 25@lip. Patient dim throughout with some expiratory wheezes. Patient noted to be desatting? and sustaining low 80?s around 1930. Patient suctioned multiple times, moderate amounts of clear thick sputum suctioned out. FiO2 increased to 60% at that time. Patient also noted to have small cut in right side of mouth, creating some blood tinged sputum which later resolved. FiO2 decreased back to 50% at 0000. Patient maintaining O2 saturation about 95%.? Patient noted to be febrile during the day. Fever slowly climbing. At 2150, core temperature of 101.5 degrees documented. PRN tylenol administered (see MAR) with little effect.? At this time patient?s heart rate began to sustain in the 120?s. Provider notified. Levo titrated per AUG.Patient began sustaining in the 90?s as of 0200. Increasing SPB between 0400 and 0500, see MAR, levo currently paused as of this writing.? Patient continues on TF diet, no changes made, feed and flush administered per order.? Patient turned and repositioned Q2H, bed in lowest position. Plan of care ongoing.
[2024-12-09 06:52] LABS: Alanine Aminotransferase 40 U/L (0-31); Albumin Level 2.9 g/dL (3.5-5.0); Alkaline Phosphatase 173 U/L (39-117); Anion Gap 19 (12-20); Aspartate Amino Transferase 62 U/L (5-31); Bilirubin Total 1.8 mg/dL (0.0-1.0); Blood Urea Nitrogen 61 mg/dL (9-16); Calcium 9.4 mg/dL (8.4-10.2); Carbon Dioxide 24 mmol/L (22-29); Chloride 100 mmol/L (96-108); Creatinine Clr Calc Pharmacy 23.3; Estimated Glomerular Filt Rate 20; Glucose Random 115 mg/dL (60-115); Magnesium 2.6 mg/dL (1.6-2.6); Phosphorus 5.9 mg/dL (2.7-4.5); Potassium 4.5 mmol/L (3.3-5.1); Sodium 138 mmol/L (135-145); Total Protein 7.2 g/dL (6.5-8.0)
[2024-12-09 07:04] LABS: Basophils Percent Auto 0.4 % (0-2); Eosinophils Absolute Auto 0.1 X10*3/uL (0.0-0.4); Eosinophils Percent Auto 1.8 % (0-4); Hematocrit 29.2 % (37.0-47.0); Hemoglobin 9.7 g/dl (12.0-16.0); Imm Gran Abs Auto 0.11 X10*3/uL (0.00-0.03); Imm Gran Pct Auto 1.4 % (0.0-0.4); Lymphocytes Absolute Auto 0.3 X10*3/uL (1.2-4.9); Lymphocytes Percent Auto 3.8 % (20-40); Mean Corpuscular HGB Conc 33.2 g/dl (31.0-35.0); Mean Corpuscular Hemoglobin 32.2 pg (27.0-33.0); Mean Platelet Volume 11.2 fL (9.4-12.3); Monocytes Absolute Auto 0.3 X10*3/uL (0.1-1.2); Monocytes Percent Auto 3.9 % (2-11); Neutrophils Absolute Auto 6.8 x10*3/uL (2.0-8.3); Neutrophils Percent Auto 88.7 % (45-73); Platelet Count 106 X10*3/uL (160-400); Red Blood Count 3.01 X10*6/uL (4.20-5.50); White Blood Count 7.7 X10*3/uL (4.8-10.8)
[2024-12-09] MEDS: Chlorhexidine Gluc Oral Rinse 15 ML MOUTHWASH BUCCAL ×3 (08:41→20:33)
[2024-12-09] MEDS: Famotidine/PF 20 MG/2 ML VIAL IVPUSH (08:41)
--- NOTE | 2024-12-09 08:50 | P.PNCC_ITS ---
Subjective Subjective Date of Service: 12/09/24 Interval History: No new changes, on ventilator support; FiO2 requirement slightly decreasing Critical Care Time (minutes): 35 Physical Exam 2 Vital Signs: Vital Signs: Last Vital Signs Temp 98.8 F 12/09/24 08:00 Pulse 94 12/09/24 08:00 Resp 16 12/09/24 08:00 BP 103/51 L 12/09/24 08:00 Pulse Ox 97 12/09/24 08:00 O2 Del Method Mechanical Ventil ation 12/09/24 08:00 O2 Flow Rate 55 12/06/24 10:00 FiO2 45 12/09/24 08:00 BMI result Body Mass Index 25.8 General: Elderly lady and somewhat acute distress, ill appearing and tired appearing Nutritional Appearance: well nourished and overweight Eyes: appearance normal, both eyes and all related structures; Alignment and Position: alignment normal and position normal Neck: No lymphadenopathy, no thyromegaly Resp: bilateral air entry equal, occasional added sounds present Cardio: Regular rate, regular rhythm; Heart sounds: S1 normal heart sound present and S2 normal heart sound present GI: soft, nontender, no guarding, no hepatosplenomegaly : bladder normal to inspection, bladder normal to palpation, no renal angle tenderness Skin: no rashes or lesions noted and elasticity normal Neuro: Sedated but no focal deficits Objective Data Labs 12/09/24 05:31 12/09/24 05:31 Labs: Laboratory Results - last 24 hr 12/08/24 12/08/24 12/09/24 08:42 23:39 05:31 WBC 7.7 RBC 3.01 L D Hgb 9.7 L Hct 29.2 L MCV 97.0 D MCH 32.2 MCHC 33.2 RDW 15.0 Plt Count 106 L MPV 11.2 Immature Gran % (Auto) 1.4 H Neut % (Auto) 88.7 H Lymph % (Auto) 3.8 L [place] % (Auto) 3.9 Eos % (Auto) 1.8 Baso % (Auto) 0.4 Lymph # (Auto) 0.3 L [place] # (Auto) 0.3 Eos # (Auto) 0.1 Baso # (Auto) 0.0 Abs Immat Gran (auto) 0.11 H Absolute Neuts (auto) 6.8 Absolute Nucleated RBC 0.000 Nucleated RBC % (auto) 0.0 VBG pH 7.45 H VBG pCO2 34 VBG pO2 141 VBG HCO3 24 VBG O2 Saturation 99.0 VBG Base Excess 1.3 Sodium 138 138 Potassium 4.2 4.5 Chloride 100 100 Carbon Dioxide 27 24 Anion Gap 15 19 BUN 63 H 61 H Creatinine 2.54 H 2.38 H Estim Creat Clear Calc 21.9 23.3 Estimated GFR 19 20 Random Glucose 152 H 115 Calcium 9.3 9.4 Phosphorus 5.9 H Magnesium 2.6 Total Bilirubin 2.4 H 1.8 H AST 66 H 62 H ALT 41 H 40 H Alkaline Phosphatase 179 H 173 H Total Protein 7.3 7.2 Albumin 3.0 L 2.9 L Random Vancomycin 15.3 Microbiology Microbiology Results: Microbiology 11/24/24 15:47 Blood - Venous Blood Culture - Final No growth after 5 days. 11/24/24 15:42 Blood - Venous Blood Culture - Final No growth after 5 days. Progress Note: A&P Assessment and plan (1) At risk for malnutrition: Status: Acute (2) History of right-sided carotid endarterectomy: Status: Acute (3) Acute hypoxic respiratory failure: Status: Acute (4) Multifocal pneumonia: Status: Acute (5) COPD with acute exacerbation: Status: Acute (6) CKD (chronic kidney disease) stage 3, GFR 30-59 ml/min: Status: Chronic Plan Neuro: Acute encephalopathy possibly due to metabolic encephalopathy On propofol for sedation, as needed fentanyl for analgesia; will wean sedation for spontanous breathing trials. Close neurological status monitoring in the ICU every hour Cardiac: Cardiogenic Shock: Possibly secondary to positive pressure ventilator Off Levophed support this morning Respiratory: Acute hypoxemic respiratory failure due to unspecified bilateral pneumonia Currently on ventilator support On P pressure control mode FiO2 decreased to 40%, 04/11; will place the patient on pressure support trials Peak pressures and plateau pressures are under the curve Ventilator management bundle with head end elevation, aspiration precaution, chlorhexidine mouthwash, daily awakening trials, daily spontaneous breathing trials GI: on tube feeds Renal: Renal function slightly better when compared to last night, down to 2.38 this morning, will do a bedside echo to evaluate hemodynamic status. Net fluid balance positive for the past 2 days. We will closely monitor I's and O's Avoid nephrotoxic medications Heme: Chronic anemia, closely monitor H&H, transfuse for hemoglobin less than 7 grams/deciliter Endocrine: Blood sugars under control Sliding scale insulin as needed Infectious disease: Has chronic lumbar vertebral osteomyelitis Continue vancomycin and meropenem as per ID Vancomycin level is 15.3; on vancomycin 750 mg daily Musculoskeletal: Decubitus ulcer prevention protocol Lines: Peripheral Prophylaxis: Lovenox, pantoprazole Quality Stroke Does the patient have a stroke diagnosis?: No VTE Prior VTE?: No VTE Risk Level:: Medical - moderate - high VTE Device Contraindication: Treatment Not Indicated VTE Drug Contraindication: N/A - Med Ordered
[2024-12-09 09:19] LABS: Vancomycin Trough 17.5 mcg/mL (10.0-20.0)
--- NOTE | 2024-12-09 09:55 | P.CDIM_ITS ---
PROVIDER RESPONSE TEXT: To clarify, the appropriate diagnosis supported by the clinical indicators: Acute QUERY TEXT: PHYSICIAN'S DOCUMENTATION REQUEST Date of Query: 11/30/2024 09:52 AM EDT Patient Name: Myrtle Hamm Admit Date: 11/25/2024 Dear Germán Edward MD, A review of the medical record indicates additional documentation may be needed. Please review below and update the documentation accordingly. Clinical Indicators: MRI spine: Findings are consistent with osteomyelitis/discitis at L5 and S1 Clarify which of the following accurately represents the acuity of the Osteomyelitis. Possible options might include: Acute Acute on chronic Compensated Chronic stable condition Remission Other (explain) Clinically unable to determine (explain) Thank you, Paula Wolfe RN Use of terms such as suspected, likely, concern for, or probable (associated with a specific diagnosis that is being evaluated, monitored, or treated as if it exists) are acceptable and can be coded in the inpatient setting, when documented at the time of discharge. Please use your independent medical judgment in providing your response. THIS QUERY IS PART OF THE PERMANENT MEDICAL RECORD
[2024-12-09] MEDS: vancomycin HCL 500 MG in 0.9 % Sodium Chloride 100 ML 110 MG IV (11:02)
--- NOTE | 2024-12-09 11:26 | MHC.CLN ---
F/U PT REMAINS INTUBATED AND SEDATED RECEIVING TF PROMOTE AT MAX GOAL RATE 50ML/HR WITH 120ML FREE WATER FLUSHES Q 6 HRS PROVIDES 1200KCALS (1824KCALS WITH SEDATION; 31KCALS/KG), 75G PROTEIN (1.3G/KG), 1487ML TOTAL WATER FROM FORMULA AND FLUSHES (25ML/KG) RECOMMEND SWITCHING TF FORMULA TO NEPRO AT MAX GOAL RATE 30ML/HR TO PROVIDE 1296KCALS (1920KCALS WITH SEDATION; 32.5KCALS/KG BASED ON IBW), 58G PROTEIN (.9G/KG), 523ML FREE WATER FROM FORMULA MONITOR TOLERANCE AND LYTES
--- NOTE | 2024-12-09 11:42 | MHC.CM.PN ---
Pt continues on ventilatory support with requirements slowly decreasing. Continue to follow for finalization of d/c plans.
--- NOTE | 2024-12-09 12:28 | P.CDIM_ITS ---
PROVIDER RESPONSE TEXT: To clarify, the appropriate diagnosis supported by the clinical indicators: Clinically unable to determine (explain): unable to determine QUERY TEXT: PHYSICIAN'S DOCUMENTATION REQUEST Date of Query: 12/09/2024 12:15 PM EDT Patient Name: Myrtle Hamm Admit Date: 11/25/2024 Dear Cruz Haines MD, A review of the medical record indicates additional documentation may be needed. Please review below and update the documentation accordingly. Clinical Indicators: Per Wound note 12/03/24: pressure injury coccyx, unstageable, present on admission Triad and foam dressing to allow for protection and autolytic debridement Based on the above, could you please provide further information regarding the ulcer/wound: Pressure ulcer coccyx, unstageable, present on admission Other (explain) Clinically unable to determine (explain) Thank you, Paula Wofle RN Use of terms such as suspected, likely, concern for, or probable (associated with a specific diagnosis that is being evaluated, monitored, or treated as if it exists) are acceptable and can be coded in the inpatient setting, when documented at the time of discharge. Please use your independent medical judgment in providing your response. THIS QUERY IS PART OF THE PERMANENT MEDICAL RECORD
[2024-12-09] MEDS: fentaNYL citrate/NS 1,000 MCG/100 ML PLAST..BAG 5 MCG IVCONT (12:45)
[2024-12-09] MEDS: Meropenem 500 MG VIAL IVPUSH ×2 (13:05→23:40)
[2024-12-09 14:04] LABS: Anion Gap 15 (12-20); Blood Urea Nitrogen 63 mg/dL (9-16); Calcium 8.8 mg/dL (8.4-10.2); Carbon Dioxide 27 mmol/L (22-29); Chloride 103 mmol/L (96-108); Creatinine Clr Calc Pharmacy 26.2; Estimated Glomerular Filt Rate 23; Glucose Random 101 mg/dL (60-115); Potassium 4.6 mmol/L (3.3-5.1); Sodium 140 mmol/L (135-145)
--- NOTE | 2024-12-09 18:07 | PC.NURSE ---
Assumed care at 0700. Pt remains intubated and on sedative drips. Levophed drip paused. Sedation vacation started at approx 1010. TF changed to nepro at approx 1200. Pt now grimaces with oral care, clamps down on suction catheter. Does not open eyes or follow commands. Family updated via phone. See MAR and assessments for further details. Pt repositioned q2hr as tolerated. Fall/safety precautions in place.
[2024-12-09] MEDS: Acetaminophen Oral Liquid 650 MG/20.3 ML SOLUTION PO (22:36)
[2024-12-09] MEDS: fentaNYL citrate/PF 100 MCG/2 ML VIAL IVPUSH (22:39)
[2024-12-10] VITALS (42 sets, daily range): BP systolic 113–215; BP diastolic 50–101; PULSE 74–153; RESP 12–30; TEMP 34.6–39.2; O2SAT 86–98; BMI 25.0
[2024-12-10 04:28] LABS: VBG HCO3 31 mmol/L (22-26); VBG pCO2 39 mmHg; VBG pH 7.51 (7.32-7.43); VBG pO2 76 mmHg
[2024-12-10 04:57] LABS: MANUAL DIFF FLAG NO
[2024-12-10 04:59] LABS: Basophils Percent Auto 0.5 % (0-2); Eosinophils Absolute Auto 0.1 X10*3/uL (0.0-0.4); Hematocrit 22.6 % (37.0-47.0); Hemoglobin 7.9 g/dl (12.0-16.0); Imm Gran Abs Auto 0.06 X10*3/uL (0.00-0.03); Imm Gran Pct Auto 1.6 % (0.0-0.4); Lymphocytes Absolute Auto 0.2 X10*3/uL (1.2-4.9); Lymphocytes Percent Auto 6.6 % (20-40); Mean Corpuscular Hemoglobin 35.1 pg (27.0-33.0); Mean Corpuscular Volume 100.4 fL (80.0-98.0); Mean Platelet Volume 10.6 fL (9.4-12.3); Monocytes Absolute Auto 0.2 X10*3/uL (0.1-1.2); Monocytes Percent Auto 6.6 % (2-11); Neutrophils Percent Auto 81.7 % (45-73); Red Blood Count 2.25 X10*6/uL (4.20-5.50); Red Cell Distribution Width 14.8 % (11.0-16.0); White Blood Count 3.7 X10*3/uL (4.8-10.8)
[2024-12-10 05:11] LABS: Creatinine Clr Calc Pharmacy 28.6; Estimated Glomerular Filt Rate 26
[2024-12-10 05:14] LABS: Alanine Aminotransferase 36 U/L (0-31); Albumin Level 2.4 g/dL (3.5-5.0); Alkaline Phosphatase 139 U/L (39-117); Anion Gap 16 (12-20); Aspartate Amino Transferase 81 U/L (5-31); Bilirubin Total 1.1 mg/dL (0.0-1.0); Blood Urea Nitrogen 62 mg/dL (9-16); Calcium 9.1 mg/dL (8.4-10.2); Carbon Dioxide 27 mmol/L (22-29); Chloride 103 mmol/L (96-108); Creatinine Clr Calc Pharmacy 28.3; Estimated Glomerular Filt Rate 25; Glucose Random 98 mg/dL (60-115); Magnesium 2.3 mg/dL (1.6-2.6); Phosphorus 5.7 mg/dL (2.7-4.5); Sodium 142 mmol/L (135-145); Total Protein 6.2 g/dL (6.5-8.0)
[2024-12-10 05:20] LABS: Venous Blood Gas Refer to POC result
[2024-12-10 05:30] LABS: Platelet Count 80 X10*3/uL (160-400)
[2024-12-10] MEDS: Levothyroxine Sodium 75 MCG TABLET PO (06:06)
[2024-12-10] MEDS: Albumin Human 25 % 100 ML IV ×4 (06:06→22:51)
--- NOTE | 2024-12-10 07:27 | PC.NURSE ---
Assumed care of patient at 1900. Patient remained on pressure control ventilator settings overnight. Sedation remained off, one prn dose of fentanyl administered per order.
[2024-12-10] MEDS: Lactated Ringers 1,000 ML 100 ML IVCONT (07:32)
--- NOTE | 2024-12-10 08:37 | P.PNCC_ITS ---
Subjective Subjective Date of Service: 12/10/24 Interval History: Continues to be on ventilator support this morning Poor neurological response, off propofol and fentanyl Critical Care Time (minutes): 35 Physical Exam 2 Vital Signs: Vital Signs: Last Vital Signs Temp 100.6 F H 12/10/24 07:00 Pulse 111 H 12/10/24 07:00 Resp 18 12/10/24 07:00 BP 154/82 H 12/10/24 07:00 Pulse Ox 90 L 12/10/24 07:58 O2 Del Method Mechanical Ventil ation 12/10/24 07:00 O2 Flow Rate 94 12/09/24 15:00 FiO2 40 12/10/24 07:58 BMI result Body Mass Index 25.0 General: elderly lady in any acute distress, ill appearing, unresponsive connected to the vent Nutritional Appearance: well nourished and overweight Eyes: appearance normal, both eyes and all related structures; Alignment and Position: alignment normal and position normal Neck: No lymphadenopathy, no thyromegaly Resp: bilateral air entry equal, no added sounds present Cardio: Regular rate, regular rhythm; Heart sounds: S1 normal heart sound present and S2 normal heart sound present GI: soft, nontender, no guarding, no hepatosplenomegaly : bladder normal to inspection, bladder normal to palpation, no renal angle tenderness Skin: no rashes or lesions noted and elasticity normal Neuro: unresponsive, poor spontaneous response, no focal defecits Objective Data Labs 12/10/24 04:17 12/10/24 04:17 Labs: Laboratory Results - last 24 hr 12/09/24 12/09/24 12/10/24 08:59 13:31 04:16 WBC RBC Hgb Hct MCV MCH MCHC RDW Plt Count MPV Immature Gran % (Auto) Neut % (Auto) Lymph % (Auto) [place] % (Auto) Eos % (Auto) Baso % (Auto) Lymph # (Auto) [place] # (Auto) Eos # (Auto) Baso # (Auto) Abs Immat Gran (auto) Absolute Neuts (auto) Absolute Nucleated RBC Nucleated RBC % (auto) VBG pH VBG pCO2 VBG pO2 VBG HCO3 VBG O2 Saturation VBG Base Excess Sodium 140 142 Potassium 4.6 4.0 Chloride 103 103 Carbon Dioxide 27 27 Anion Gap 15 16 BUN 63 H 62 H Creatinine 2.12 H 1.96 H Estim Creat Clear Calc 26.2 28.3 Estimated GFR 23 25 Random Glucose 101 98 Calcium 8.8 D 9.1 Phosphorus 5.7 H Magnesium 2.3 Total Bilirubin 1.1 H AST 81 H ALT 36 H Alkaline Phosphatase 139 H Total Protein 6.2 L Albumin 2.4 L Vancomycin Trough 17.5 12/10/24 12/10/24 04:17 04:24 WBC 3.7 L RBC 2.25 L D Hgb 7.9 L Hct 22.6 L D MCV 100.4 H MCH 35.1 H MCHC 35.0 RDW 14.8 Plt Count 80 L MPV 10.6 Immature Gran % (Auto) 1.6 H Neut % (Auto) 81.7 H Lymph % (Auto) 6.6 L [place] % (Auto) 6.6 Eos % (Auto) 3.0 Baso % (Auto) 0.5 Lymph # (Auto) 0.2 L [place] # (Auto) 0.2 Eos # (Auto) 0.1 Baso # (Auto) 0.0 Abs Immat Gran (auto) 0.06 H Absolute Neuts (auto) 3.0 Absolute Nucleated RBC 0.000 Nucleated RBC % (auto) 0.0 VBG pH 7.51 H VBG pCO2 39 VBG pO2 76 VBG HCO3 31 H VBG O2 Saturation 95.0 VBG Base Excess 8.0 Sodium Potassium Chloride Carbon Dioxide Anion Gap BUN Creatinine 1.94 H Estim Creat Clear Calc 28.6 Estimated GFR 26 Random Glucose Calcium Phosphorus Magnesium Total Bilirubin AST ALT Alkaline Phosphatase Total Protein Albumin Vancomycin Trough Microbiology Microbiology Results: Microbiology 11/24/24 15:47 Blood - Venous Blood Culture - Final No growth after 5 days. 11/24/24 15:42 Blood - Venous Blood Culture - Final No growth after 5 days. Progress Note: A&P Assessment and plan (1) Acute hypoxic respiratory failure: Status: Acute (2) Multifocal pneumonia: Status: Acute (3) COPD with acute exacerbation: Status: Acute (4) Pneumonia due to COVID-19 virus: Status: Acute (5) CKD (chronic kidney disease) stage 3, GFR 30-59 ml/min: Status: Chronic Plan Neuro: Acute encephalopathy possibly due to metabolic encephalopathy Off propofol and fentanyl since yesterday; will wean sedation for spontaneous breathing trials. Close neurological status monitoring in the ICU every hour Cardiac: Cardiogenic Shock: Possibly secondary to positive pressure ventilaton Off Levophed support this morning Respiratory: Acute hypoxemic respiratory failure due to unspecified bilateral pneumonia Currently on ventilator support On pressure control mode FiO2 decreased to 40%, 04/11; failed weaning trials yesterday due to poor mental status, we will place her back on pressure support trials today Peak pressures and plateau pressures are under the curve Ventilator management bundle with head end elevation, aspiration precaution, chlorhexidine mouthwash, daily awakening trials, daily spontaneous breathing trials will send sputum cultures GI: on tube feeds Renal: Renal function improving, creatinine down to 1.9 from peak of 2.5 We will cut down IV fluids to 50cc/hr as patient's CBC is diluted with all the 3 lines Net fluid balance positive for the past 3 days. We will closely monitor I's and O's Avoid nephrotoxic medications Heme: Chronic anemia, closely monitor H&H, transfuse for hemoglobin less than 7 grams/deciliter Endocrine: Blood sugars under control Sliding scale insulin as needed Infectious disease: Has chronic lumbar vertebral osteomyelitis Continue vancomycin and meropenem as per ID Vancomycin level is 15.3; on vancomycin 750 mg daily Musculoskeletal: Decubitus ulcer prevention protocol Lines: Peripheral will take out Strauss Prophylaxis: Lovenox, pantoprazole Quality Stroke Does the patient have a stroke diagnosis?: No VTE Prior VTE?: No VTE Risk Level:: Medical - moderate - high VTE Device Contraindication: Treatment Not Indicated VTE Drug Contraindication: N/A - Med Ordered
[2024-12-10] MEDS: 0.9 % Sodium Chloride Flush 3 ML SYRINGE IVFLUSH ×3 (08:43→20:23)
[2024-12-10] MEDS: Chlorhexidine Gluc Oral Rinse 15 ML MOUTHWASH BUCCAL ×3 (08:50→20:15)
[2024-12-10] MEDS: Famotidine/PF 20 MG/2 ML VIAL IVPUSH (08:51)
[2024-12-10 09:47] LABS: Vancomycin Random 17.6 mcg/mL (15-20)
[2024-12-10] MEDS: Meropenem 500 MG VIAL IVPUSH ×2 (10:57→22:20)
[2024-12-10] MEDS: vancomycin HCL 500 MG in 0.9 % Sodium Chloride 100 ML 110 MG IV (10:57)
[2024-12-10] MEDS: Labetalol HCL 100 MG/20 ML VIAL 20 MG IVPUSH ×5 (11:03→16:45)
[2024-12-10] MEDS: dexmedeTOMIDine HCL/NS 400 MCG/100 ML PLAST..BAG 17.58 MCG IVCONT (11:10)
[2024-12-10] MEDS: dexmedeTOMIDine HCL/NS 400 MCG/100 ML PLAST..BAG 24.61 MCG IVCONT (14:55)
[2024-12-10 15:15] LABS: COVID-19 Test Positive (Negative); IDNOW Serial# 58CA691E
[2024-12-10] MEDS: hydrALAZINE HCl 20 MG/ML VIAL 10 MG IVPUSH (18:17)
[2024-12-10] MEDS: dexmedeTOMIDine HCL/NS 400 MCG/100 ML PLAST..BAG 26.36 MCG IVCONT ×2 (18:35→23:32)
--- NOTE | 2024-12-10 18:46 | PC.NURSE ---
Assumed care @ 0700? Neuro/Resp: on precedex gtt per AUG, open eyes occasionally, positive cough and pain response, negative gag,? does not follow commands,? GARCIA spontaneously (passive ROM performed)? Resp: ?ACVC vent. support . Did not tolerate PSV Settings? Cardiac: ?Sinus tachycardia HR up to 150?s, Systolic BP up to 200?s Labetalol? and Hydralazine IVP given per AUG. Dr. Haines aware of the above vitals. GI: LBM 12/10, +bowel sounds, OGT in place Tolerating tube feeds without signs of intolerance : Lindquist removed, incontinence episode x1 s/p lindquist removal,? External catheter in place Skin: ?Impaired skin integrity - see skin assessment (repositioning maintained)? Scattered bruising,? Temp: Temperature 102.0? placed on a cooling blanket, with improvement to 97. Infectious: IV antibiotics? Lines: peripheral IV x2.
[2024-12-10] MEDS: fentaNYL citrate/PF 100 MCG/2 ML VIAL IVPUSH (20:12)
[2024-12-10] MEDS: Nystatin Powder 15 GM BOTTLE 1 APPL TOPICAL (21:27)
[2024-12-11] VITALS (35 sets, daily range): BP systolic 95–189; BP diastolic 53–112; PULSE 74–118; RESP 20–41; TEMP 34.6–38.9; O2SAT 06–99; BMI 29.6
[2024-12-11] MEDS: Lactated Ringers 1,000 ML 50 ML IVCONT ×2 (02:06→19:07)
[2024-12-11] MEDS: Labetalol HCL 100 MG/20 ML VIAL 20 MG IVPUSH (02:11)
[2024-12-11] MEDS: dexmedeTOMIDine HCL/NS 400 MCG/100 ML PLAST..BAG 26.36 MCG IVCONT ×2 (02:48→06:42)
[2024-12-11 04:49] LABS: VBG Base Excess 11.9 mmol/L; VBG HCO3 35 mmol/L (22-26); VBG pCO2 40 mmHg; VBG pH 7.54 (7.32-7.43); VBG pO2 89 mmHg
[2024-12-11 05:28] LABS: MANUAL DIFF FLAG NO
[2024-12-11] MEDS: Levothyroxine Sodium 75 MCG TABLET PO (05:31)
[2024-12-11 05:44] LABS: Creatinine Clr Calc Pharmacy 35.4; Estimated Glomerular Filt Rate 36
[2024-12-11 05:48] LABS: Alanine Aminotransferase 31 U/L (0-31); Albumin Level 3.7 g/dL (3.5-5.0); Alkaline Phosphatase 115 U/L (39-117); Anion Gap 14 (12-20); Aspartate Amino Transferase 64 U/L (5-31); Bilirubin Total 1.4 mg/dL (0.0-1.0); Blood Urea Nitrogen 62 mg/dL (9-16); Calcium 9.9 mg/dL (8.4-10.2); Carbon Dioxide 30 mmol/L (22-29); Chloride 103 mmol/L (96-108); Creatinine Clr Calc Pharmacy 34.3; Estimated Glomerular Filt Rate 35; Glucose Random 107 mg/dL (60-115); Magnesium 2.1 mg/dL (1.6-2.6); Phosphorus 4.8 mg/dL (2.7-4.5); Potassium 3.3 mmol/L (3.3-5.1); Sodium 144 mmol/L (135-145); Total Protein 6.9 g/dL (6.5-8.0)
[2024-12-11 06:04] LABS: Venous Blood Gas Refer to POC result
[2024-12-11 06:16] LABS: Basophils Percent Auto 0.7 % (0-2); Eosinophils Absolute Auto 0.1 X10*3/uL (0.0-0.4); Eosinophils Percent Auto 1.7 % (0-4); Hematocrit 43.7 % (37.0-47.0); Hemoglobin 14.6 g/dl (12.0-16.0); Imm Gran Abs Auto 0.07 X10*3/uL (0.00-0.03); Imm Gran Pct Auto 1.7 % (0.0-0.4); Lymphocytes Absolute Auto 0.2 X10*3/uL (1.2-4.9); Lymphocytes Percent Auto 5.7 % (20-40); Mean Corpuscular HGB Conc 33.4 g/dl (31.0-35.0); Mean Corpuscular Hemoglobin 32.4 pg (27.0-33.0); Mean Corpuscular Volume 97.1 fL (80.0-98.0); Mean Platelet Volume 11.8 fL (9.4-12.3); Monocytes Absolute Auto 0.2 X10*3/uL (0.1-1.2); Monocytes Percent Auto 4.9 % (2-11); Neutrophils Absolute Auto 3.5 x10*3/uL (2.0-8.3); Neutrophils Percent Auto 85.3 % (45-73); Red Cell Distribution Width 14.6 % (11.0-16.0); White Blood Count 4.1 X10*3/uL (4.8-10.8)
[2024-12-11 06:18] LABS: Platelet Count 61 X10*3/uL (160-400)
[2024-12-11] MEDS: HYDROmorphone HCl 1 MG/ML SYRINGE IVPUSH (06:23)
[2024-12-11] MEDS: hydrALAZINE HCl 20 MG/ML VIAL 10 MG IVPUSH (07:45)
[2024-12-11] MEDS: 0.9 % Sodium Chloride Flush 3 ML SYRINGE IVFLUSH ×3 (07:46→22:00)
[2024-12-11] MEDS: Famotidine/PF 20 MG/2 ML VIAL IVPUSH (07:46)
[2024-12-11] MEDS: Chlorhexidine Gluc Oral Rinse 15 ML MOUTHWASH BUCCAL ×3 (07:46→21:51)
[2024-12-11] MEDS: Nystatin Powder 15 GM BOTTLE 1 APPL TOPICAL ×2 (08:16→22:00)
--- NOTE | 2024-12-11 08:41 | P.PNCC_ITS ---
Subjective Subjective Date of Service: 12/11/24 Interval History: No new events overnight, episode of agitation this morning Temperature is better Critical Care Time (minutes): 35 Physical Exam 2 Vital Signs: Vital Signs: Last Vital Signs Temp 99.9 F 12/11/24 08:00 Pulse 82 12/11/24 08:00 Resp 27 H 12/11/24 08:00 BP 176/82 H 12/11/24 07:45 Pulse Ox 95 12/11/24 08:00 O2 Del Method Mechanical Ventil ation 12/11/24 08:00 O2 Flow Rate 94 12/09/24 15:00 FiO2 60 12/11/24 08:00 BMI result Body Mass Index 25.0 General: Elderly lady in acute distress, lying in the bed connected to the ventilator Nutritional Appearance: well nourished and overweight Eyes: appearance normal, both eyes and all related structures; Alignment and Position: alignment normal and position normal Neck: No lymphadenopathy, no thyromegaly Resp: bilateral air entry equal, bilateral occasional crackles heard Cardio: Regular rate, regular rhythm; Heart sounds: S1 normal heart sound present and S2 normal heart sound present GI: soft, nontender, no guarding, no hepatosplenomegaly : bladder normal to inspection, bladder normal to palpation, no renal angle tenderness Skin: no rashes or lesions noted and elasticity normal Neuro: Spontaneous eye opening present, but does not follow any commands Objective Data Labs 12/11/24 04:39 12/11/24 04:39 Labs: Laboratory Results - last 24 hr 12/10/24 12/10/24 12/11/24 09:25 14:30 04:39 WBC 4.1 L RBC 4.50 D Hgb 14.6 D Hct 43.7 D MCV 97.1 MCH 32.4 MCHC 33.4 RDW 14.6 Plt Count 61 L MPV 11.8 Immature Gran % (Auto) 1.7 H Neut % (Auto) 85.3 H Lymph % (Auto) 5.7 L [place] % (Auto) 4.9 Eos % (Auto) 1.7 Baso % (Auto) 0.7 Lymph # (Auto) 0.2 L [place] # (Auto) 0.2 Eos # (Auto) 0.1 Baso # (Auto) 0.0 Abs Immat Gran (auto) 0.07 H Absolute Neuts (auto) 3.5 Absolute Nucleated RBC 0.000 Nucleated RBC % (auto) 0.0 Hold Purple Top SEE NOTE VBG pH VBG pCO2 VBG pO2 VBG HCO3 VBG O2 Saturation VBG Base Excess Sodium 144 Potassium 3.3 Chloride 103 Carbon Dioxide 30 H Anion Gap 14 BUN 62 H Creatinine 1.44 H Estim Creat Clear Calc Estimated GFR Random Glucose Calcium Phosphorus Magnesium Total Bilirubin AST ALT Alkaline Phosphatase Total Protein Albumin Hold Yellow Top Random Vancomycin 17.6 COVID-19 (ARNULFO) Positive A COVID-19 OR Productivity Com See Note 12/11/24 12/11/24 12/11/24 04:39 04:39 04:39 WBC RBC Hgb Hct MCV MCH MCHC RDW Plt Count MPV Immature Gran % (Auto) Neut % (Auto) Lymph % (Auto) [place] % (Auto) Eos % (Auto) Baso % (Auto) Lymph # (Auto) [place] # (Auto) Eos # (Auto) Baso # (Auto) Abs Immat Gran (auto) Absolute Neuts (auto) Absolute Nucleated RBC Nucleated RBC % (auto) Hold Purple Top VBG pH VBG pCO2 VBG pO2 VBG HCO3 VBG O2 Saturation VBG Base Excess Sodium Potassium Chloride Carbon Dioxide Anion Gap BUN Creatinine 1.49 H Estim Creat Clear Calc 35.4 34.3 Estimated GFR 36 35 Random Glucose 107 Calcium 9.9 D Phosphorus 4.8 H Magnesium 2.1 Total Bilirubin 1.4 H AST 64 H ALT 31 Alkaline Phosphatase 115 Total Protein 6.9 Albumin 3.7 Hold Yellow Top See Note Random Vancomycin COVID-19 (ARNULFO) COVID-19 OR Productivity Com 12/11/24 04:44 WBC RBC Hgb Hct MCV MCH MCHC RDW Plt Count MPV Immature Gran % (Auto) Neut % (Auto) Lymph % (Auto) [place] % (Auto) Eos % (Auto) Baso % (Auto) Lymph # (Auto) [place] # (Auto) Eos # (Auto) Baso # (Auto) Abs Immat Gran (auto) Absolute Neuts (auto) Absolute Nucleated RBC Nucleated RBC % (auto) Hold Purple Top VBG pH 7.54 H VBG pCO2 40 VBG pO2 89 VBG HCO3 35 H VBG O2 Saturation 97.0 VBG Base Excess 11.9 Sodium Potassium Chloride Carbon Dioxide Anion Gap BUN Creatinine Estim Creat Clear Calc Estimated GFR Random Glucose Calcium Phosphorus Magnesium Total Bilirubin AST ALT Alkaline Phosphatase Total Protein Albumin Hold Yellow Top Random Vancomycin COVID-19 (ARNULFO) COVID-19 Clin Com Microbiology Microbiology Results: Microbiology 12/10/24 12:20 Trachea Gram Stain - Final 12/10/24 12:20 Trachea Sputum Culture - Preliminary Culture in progress. 11/24/24 15:47 Blood - Venous Blood Culture - Final No growth after 5 days. 11/24/24 15:42 Blood - Venous Blood Culture - Final No growth after 5 days. Progress Note: A&P Assessment and plan (1) Acute hypoxic respiratory failure: Status: Acute (2) Multifocal pneumonia: Status: Acute (3) COPD with acute exacerbation: Status: Acute (4) CKD (chronic kidney disease) stage 3, GFR 30-59 ml/min: Status: Chronic (5) Acute encephalopathy: Status: Acute Plan Neuro: Acute encephalopathy possibly due to metabolic encephalopathy Off propofol and fentanyl for 48 hours now; on Precedex for anxiolysis. Will add as needed Fentanyl 25mcg CT head did not show any acute intracranial pathology Close neurological status monitoring in the ICU every hour Cardiac: Cardiogenic Shock: Possibly secondary to positive pressure ventilation Off Levophed support this morning Respiratory: Acute hypoxemic respiratory failure due to unspecified bilateral pneumonia Currently on ventilator support On pressure control mode FiO2 40%, 04/11; we will try her back on weaning trials this morning Peak pressures and plateau pressures are under the curve Ventilator management bundle with head end elevation, aspiration precaution, chlorhexidine mouthwash, daily awakening trials, daily spontaneous breathing trials will send sputum cultures GI: on tube feeds Renal: NATALIE improving, creatinine down to 1.49 this morning Continue IV fluids to 50cc/hr Net fluid balance positive 1500 cc We will closely monitor I's and O's Avoid nephrotoxic medications Heme: Chronic anemia, closely monitor H&H, transfuse for hemoglobin less than 7 grams/deciliter Endocrine: Blood sugars under control Sliding scale insulin as needed Infectious disease: Has chronic lumbar vertebral osteomyelitis Continue vancomycin and meropenem as per ID Vancomycin level is 15.3; on vancomycin 750 mg daily will get a PICC line as she needs 6 weeks of antibiotics Musculoskeletal: Decubitus ulcer prevention protocol Lines: Peripheral will take out Strauss Prophylaxis: Lovenox, pantoprazole Quality Stroke Does the patient have a stroke diagnosis?: No VTE Prior VTE?: No VTE Risk Level:: Medical - moderate - high VTE Device Contraindication: Treatment Not Indicated VTE Drug Contraindication: N/A - Med Ordered
[2024-12-11 09:57] LABS: Vancomycin Random 13.6 mcg/mL (15-20)
--- NOTE | 2024-12-11 10:07 | MHC.CLN ---
F/U PT REMAINS INTUBATED AND SEDATED WITH PRECEDEX RECEIVING TF NEPRO AT MAX GOAL RATE 30ML/HR PROVIDES 1296KCALS (1920KCALS WITH SEDATION; 32.5KCALS/KG BASED ON IBW), 58G PROTEIN (.9G/KG), 523ML FREE WATER FROM FORMULA RECOMMEND INCREASING TF FORMULA TO NEPRO AT MAX GOAL RATE 40ML/HR WITH 240L FREE WATER Q 8 HRS TO PROVIDE 1728KCALS (29KCALS/KG BASED ON IBW), 72G PROTEIN (1.2G/KG), 1418ML TOTAL FREE WATER FROM FORMULA AND FLUSHES (24ML/KG) MONITOR TOLERANCE AND LYTES
--- NOTE | 2024-12-11 10:07 | HE.PHANOTE ---
Re Vanco Renal improving, 500mg q24h will be slightly subtherapeutic but 750 q24h will accumulate too much over time. Will give 750mg x 1 today and if renal doesn't continue to improve, may go back to 500mg daily.
[2024-12-11] MEDS: vancomycin HCL 750 MG in 0.9 % Sodium Chloride 250 ML 265 MG IV (10:43)
[2024-12-11] MEDS: Meropenem 500 MG VIAL IVPUSH ×2 (10:43→22:00)
[2024-12-11] MEDS: fentaNYL citrate/PF 100 MCG/2 ML VIAL 25 MCG IVPUSH ×2 (13:33→22:53)
[2024-12-11] MEDS: fentaNYL citrate/PF 100 MCG/2 ML VIAL 50 MCG IVPUSH (14:50)
[2024-12-11] MEDS: dexmedeTOMIDine HCL/NS 400 MCG/100 ML PLAST..BAG 24.61 MCG IVCONT ×3 (15:12→23:12)
--- NOTE | 2024-12-11 15:19 | MHC.CM.PN ---
EMR REVIEWED AND PER MD ROUNDS, PT REMAINS IN ICU, ON VENTILATORY SUPPORT. CM CONTINUES TO FOLLOW
[2024-12-11] MEDS: propofoL 1,000 MG/100 ML VIAL 14.18 MG IVCONT ×2 (15:35→19:11)
--- NOTE | 2024-12-11 16:53 | PC.NURSE ---
Assumed care @ 0700? Neuro/Resp/Cardic: ?Tolerated PSV Settings for approx. 1 hour, during sedation vacation the patient? able to follow simple commands and tracked the speaker. Pt became increasingly agitated with HR in the 140s, RR 40?s, and increase WOB, now back on resting settings and sedated on precedex and propofol gtt per AUG.?? Dr. Haines made aware of the above vitals. GI: LBM 6/20, +bowel sounds, OGT in place Tolerating tube feeds without signs of intolerance. : External catheter in place Skin: ?Impaired skin integrity - see skin assessment (repositioning maintained)? Temp: febrile low 100s, placed on a cooling blanket.? Infectious: IV antibiotics? Lines: peripheral IV x2.
[2024-12-12] VITALS (31 sets, daily range): BP systolic 103–182; BP diastolic 53–98; PULSE 76–130; RESP 22–35; TEMP 31.5–38.4; O2SAT 87–99; BMI 29.7
[2024-12-12] MEDS: propofoL 1,000 MG/100 ML VIAL 18.91 MG IVCONT ×2 (00:01→03:11)
[2024-12-12] MEDS: dexmedeTOMIDine HCL/NS 400 MCG/100 ML PLAST..BAG 24.61 MCG IVCONT ×2 (03:11→06:59)
[2024-12-12 04:30] LABS: VBG Base Excess 11.1 mmol/L; VBG HCO3 34 mmol/L (22-26); VBG pCO2 39 mmHg; VBG pH 7.54 (7.32-7.43); VBG pO2 69 mmHg
[2024-12-12 05:04] LABS: Basophils Percent Auto 0.8 % (0-2); Eosinophils Absolute Auto 0.2 X10*3/uL (0.0-0.4); Eosinophils Percent Auto 3.1 % (0-4); Hematocrit 21.8 % (37.0-47.0); Hemoglobin 7.4 g/dl (12.0-16.0); Imm Gran Abs Auto 0.17 X10*3/uL (0.00-0.03); Imm Gran Pct Auto 3.3 % (0.0-0.4); Lymphocytes Absolute Auto 0.4 X10*3/uL (1.2-4.9); Lymphocytes Percent Auto 8.1 % (20-40); MANUAL DIFF FLAG NO; Mean Corpuscular HGB Conc 33.9 g/dl (31.0-35.0); Mean Corpuscular Hemoglobin 34.3 pg (27.0-33.0); Mean Corpuscular Volume 100.9 fL (80.0-98.0); Mean Platelet Volume 11.3 fL (9.4-12.3); Monocytes Absolute Auto 0.3 X10*3/uL (0.1-1.2); Neutrophils Absolute Auto 4.1 x10*3/uL (2.0-8.3); Neutrophils Percent Auto 78.7 % (45-73); Red Blood Count 2.16 X10*6/uL (4.20-5.50); Red Cell Distribution Width 14.9 % (11.0-16.0); White Blood Count 5.2 X10*3/uL (4.8-10.8)
[2024-12-12 05:06] LABS: Platelet Count 82 X10*3/uL (160-400)
[2024-12-12 05:25] LABS: Alanine Aminotransferase 56 U/L (0-31); Alkaline Phosphatase 107 U/L (39-117); Anion Gap 15 (12-20); Aspartate Amino Transferase 114 U/L (5-31); Bilirubin Total 1.1 mg/dL (0.0-1.0); Blood Urea Nitrogen 56 mg/dL (9-16); Calcium 9.6 mg/dL (8.4-10.2); Carbon Dioxide 28 mmol/L (22-29); Chloride 107 mmol/L (96-108); Creatinine Clr Calc Pharmacy 47.1; Estimated Glomerular Filt Rate 42; Glucose Random 102 mg/dL (60-115); Phosphorus 4.1 mg/dL (2.7-4.5); Potassium 2.7 mmol/L (3.3-5.1); Sodium 147 mmol/L (135-145); Total Protein 6.4 g/dL (6.5-8.0)
[2024-12-12] MEDS: Levothyroxine Sodium 75 MCG TABLET PO (05:25)
[2024-12-12] MEDS: Acetaminophen Oral Liquid 650 MG/20.3 ML SOLUTION PO (05:41)
[2024-12-12 05:52] LABS: Venous Blood Gas Refer to POC result
[2024-12-12] MEDS: Potassium Chloride/H20 10 MEQ/100 ML PIGGYBACK 100 MEQ IV ×4 (06:05→09:35)
[2024-12-12] MEDS: Potassium Chloride Packet 20 MEQ PACKET 40 MEQ PO (08:35)
[2024-12-12] MEDS: Famotidine/PF 20 MG/2 ML VIAL IVPUSH (08:35)
[2024-12-12] MEDS: Chlorhexidine Gluc Oral Rinse 15 ML MOUTHWASH BUCCAL (08:35)
[2024-12-12] MEDS: 0.9 % Sodium Chloride Flush 3 ML SYRINGE IVFLUSH ×3 (08:36→23:27)
[2024-12-12] MEDS: Nystatin Powder 15 GM BOTTLE 1 APPL TOPICAL ×2 (08:37→20:47)
--- NOTE | 2024-12-12 09:18 | PC.NURSE ---
Addendum entered by Delma Pan RN 12/12/24 15:45: Pt extubated approx. at 1205, Placed on HFNC. Approx at 1430 the patient became anxious with increased WOB, Zyprexa IM given per AUG.? Original Note: Assumed care @ 0700? Neuro: Sedated/intubated, on? precedex gtt per AUG. Opens eyes occasionally, does not track, does not follow commands, Moves all extremities occasionally. (passive ROM performed).? Resp: ?ACVC+ vent. support.? Cardiac: Sinus Rhythm,? GI: LBM 12/11, +bowel sounds, OGT in place Tolerating tube feeds without signs of intolerance. : External catheter in place. Skin: ?Impaired skin integrity - see skin assessment (repositioning maintained). Temp: febrile low 100s, placed on a cooling blanket.? Infectious: IV antibiotics. Lines: peripheral IV x2.
--- NOTE | 2024-12-12 09:34 | P.PNCC_ITS ---
Subjective Subjective Date of Service: 12/12/24 Interval History: Was following some commands yesterday morning but failed pressor support trials due to tachypnea and distress. This morning propofol has been turned off around 05:00, Precedex has been tapered down; she is placed on pressor support trials at 09:45. Slightly tachypneic but tidal volumes are okay. Critical Care Time (minutes): 35 Physical Exam 2 Vital Signs: Vital Signs: Last Vital Signs Temp 100.4 F 12/12/24 09:00 Pulse 89 12/12/24 09:00 Resp 27 H 12/12/24 09:00 BP 158/81 H 12/12/24 09:00 Pulse Ox 96 12/12/24 09:00 O2 Del Method Mechanical Ventil ation 12/12/24 09:00 O2 Flow Rate 94 12/09/24 15:00 FiO2 30 12/12/24 09:00 BMI result Body Mass Index 29.7 General: Elderly lady in somewhat acute distress, chronic ill appearing and tired appearing Nutritional Appearance: well nourished and overweight Eyes: appearance normal, both eyes and all related structures; Alignment and Position: alignment normal and position normal Neck: No lymphadenopathy, no thyromegaly Resp: bilateral air entry equal, added sounds present bilaterally Cardio: Regular rate, regular rhythm; Heart sounds: S1 normal heart sound present and S2 normal heart sound present GI: soft, nontender, no guarding, no hepatosplenomegaly : bladder normal to inspection, bladder normal to palpation, no renal angle tenderness Skin: no rashes or lesions noted and elasticity normal Neuro: Following some command, no focal deficits, moves all extremities Objective Data Labs 12/12/24 04:23 12/12/24 04:24 Labs: Laboratory Results - last 24 hr 12/11/24 12/12/24 12/12/24 09:26 04:23 04:24 WBC 5.2 RBC 2.16 L D Hgb 7.4 L D Hct 21.8 L D MCV 100.9 H MCH 34.3 H MCHC 33.9 RDW 14.9 Plt Count 82 L D MPV 11.3 Immature Gran % (Auto) 3.3 H Neut % (Auto) 78.7 H Lymph % (Auto) 8.1 L [place] % (Auto) 6.0 Eos % (Auto) 3.1 Baso % (Auto) 0.8 Lymph # (Auto) 0.4 L [place] # (Auto) 0.3 Eos # (Auto) 0.2 Baso # (Auto) 0.0 Abs Immat Gran (auto) 0.17 H Absolute Neuts (auto) 4.1 Absolute Nucleated RBC 0.000 Nucleated RBC % (auto) 0.0 VBG pH VBG pCO2 VBG pO2 VBG HCO3 VBG O2 Saturation VBG Base Excess Sodium 147 H Potassium 2.7 L* Chloride 107 Carbon Dioxide 28 Anion Gap 15 BUN 56 H Creatinine 1.26 Estim Creat Clear Calc 47.1 Estimated GFR 42 Random Glucose 102 Calcium 9.6 Phosphorus 4.1 Magnesium 2.0 Total Bilirubin 1.1 H AST 114 H ALT 56 H Alkaline Phosphatase 107 Total Protein 6.4 L Albumin 3.0 L Random Vancomycin 13.6 L 12/12/24 04:25 WBC RBC Hgb Hct MCV MCH MCHC RDW Plt Count MPV Immature Gran % (Auto) Neut % (Auto) Lymph % (Auto) [place] % (Auto) Eos % (Auto) Baso % (Auto) Lymph # (Auto) [place] # (Auto) Eos # (Auto) Baso # (Auto) Abs Immat Gran (auto) Absolute Neuts (auto) Absolute Nucleated RBC Nucleated RBC % (auto) VBG pH 7.54 H VBG pCO2 39 VBG pO2 69 VBG HCO3 34 H VBG O2 Saturation 90.0 VBG Base Excess 11.1 Sodium Potassium Chloride Carbon Dioxide Anion Gap BUN Creatinine Estim Creat Clear Calc Estimated GFR Random Glucose Calcium Phosphorus Magnesium Total Bilirubin AST ALT Alkaline Phosphatase Total Protein Albumin Random Vancomycin Microbiology Microbiology Results: Microbiology 12/10/24 12:20 Trachea Gram Stain - Final 12/10/24 12:20 Trachea Sputum Culture - Preliminary Culture in progress. 11/24/24 15:47 Blood - Venous Blood Culture - Final No growth after 5 days. 11/24/24 15:42 Blood - Venous Blood Culture - Final No growth after 5 days. Progress Note: A&P Assessment and plan (1) Acute encephalopathy: Status: Acute (2) Acute hypoxic respiratory failure: Status: Acute (3) Multifocal pneumonia: Status: Acute (4) Pneumonia: Status: Acute (5) COPD with acute exacerbation: Status: Acute (6) Pneumonia due to COVID-19 virus: Status: Acute (7) CKD (chronic kidney disease) stage 3, GFR 30-59 ml/min: Status: Chronic (8) Acute kidney injury: Status: Acute Plan Neuro: Acute encephalopathy possibly due to metabolic encephalopathy Close on propofol yesterday due to restlessness, turned off at 05:00 this morning for weaning trials. On as needed fentanyl pushes for analgesia; on Precedex for anxiolysis. CT head did not show any acute intracranial pathology Close neurological status monitoring in the ICU every hour Cardiac: Cardiogenic Shock: Possibly secondary to positive pressure ventilation Off Levophed support this morning Respiratory: Acute hypoxemic respiratory failure due to unspecified bilateral pneumonia Currently on ventilator support On pressure control mode FiO2 40%, 04/11; placed her back on pressor support trials this morning around 09:45. On the support of 03/28 she is tachypneic but volumes are good. Peak pressures and plateau pressures are under the curve Ventilator management bundle with head end elevation, aspiration precaution, chlorhexidine mouthwash, daily awakening trials, daily spontaneous breathing trials repeat sputum cultures growing mixed luisana GI: on tube feeds Renal: NATALIE improving, creatinine down to 1.26 this morning Continue IV fluids to 50cc/hr Net fluid balance positive 1700 cc We will closely monitor I's and O's Avoid nephrotoxic medications Heme: Chronic anemia, closely monitor H&H, transfuse for hemoglobin less than 7 grams/deciliter Endocrine: Blood sugars under control Sliding scale insulin as needed Infectious disease: Has chronic lumbar vertebral osteomyelitis Continue vancomycin and meropenem as per ID Vancomycin level is 15.3; on vancomycin 750 mg daily Cannot get a PICC as 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 Musculoskeletal: Decubitus ulcer prevention protocol Lines: Peripheral Prophylaxis: Lovenox, pantoprazole Quality Stroke Does the patient have a stroke diagnosis?: No VTE Prior VTE?: No VTE Risk Level:: Medical - moderate - high VTE Device Contraindication: Treatment Not Indicated VTE Drug Contraindication: N/A - Med Ordered
--- NOTE | 2024-12-12 10:43 | HE.PHANOTE ---
re [facility] Patients renal function has been improving. Renal function has improved enought where scheduling dosing can be done. Will continue with 750 mg Q24H. Predicted AUC 500. Next level till be pulled 12/13 @0900
[2024-12-12] MEDS: Meropenem 500 MG VIAL IVPUSH (10:59)
[2024-12-12] MEDS: vancomycin HCL 750 MG in 0.9 % Sodium Chloride 250 ML 265 MG IV (10:59)
[2024-12-12] MEDS: fentaNYL citrate/PF 100 MCG/2 ML VIAL 25 MCG IVPUSH ×3 (11:00→17:13)
[2024-12-12] MEDS: OLANZapine 10 MG VIAL IM (14:36)
[2024-12-12 15:31] LABS: Alanine Aminotransferase 132 U/L (0-31); Alkaline Phosphatase 126 U/L (39-117); Anion Gap 17 (12-20); Aspartate Amino Transferase 261 U/L (5-31); Bilirubin Total 1.4 mg/dL (0.0-1.0); Blood Urea Nitrogen 54 mg/dL (9-16); Calcium 9.9 mg/dL (8.4-10.2); Carbon Dioxide 26 mmol/L (22-29); Chloride 110 mmol/L (96-108); Estimated Glomerular Filt Rate 49; Glucose Random 86 mg/dL (60-115); Potassium 3.8 mmol/L (3.3-5.1); Sodium 149 mmol/L (135-145); Total Protein 6.7 g/dL (6.5-8.0)
[2024-12-12] MEDS: dexmedeTOMIDine HCL/NS 400 MCG/100 ML PLAST..BAG 17.58 MCG IVCONT (18:53)
[2024-12-12] MEDS: Meropenem 1 GM VIAL IVPUSH (23:27)
[2024-12-13] VITALS (33 sets, daily range): BP systolic 92–163; BP diastolic 45–85; PULSE 80–141; RESP 15–43; TEMP 31.5–37; O2SAT 58–98; BMI 29.9
[2024-12-13] MEDS: dexmedeTOMIDine HCL/NS 400 MCG/100 ML PLAST..BAG 14.06 MCG IVCONT ×2 (01:11→15:00)
[2024-12-13] MEDS: fentaNYL citrate/PF 100 MCG/2 ML VIAL 25 MCG IVPUSH ×4 (01:16→12:26)
[2024-12-13 04:44] LABS: Creatinine Clr Calc Pharmacy 50.3; Estimated Glomerular Filt Rate 46
[2024-12-13 06:44] LABS: MANUAL DIFF FLAG NO
[2024-12-13 06:46] LABS: Basophils Percent Auto 0.5 % (0-2); Eosinophils Absolute Auto 0.1 X10*3/uL (0.0-0.4); Eosinophils Percent Auto 1.9 % (0-4); Hematocrit 22.2 % (37.0-47.0); Hemoglobin 7.4 g/dl (12.0-16.0); Imm Gran Pct Auto 1.6 % (0.0-0.4); Lymphocytes Absolute Auto 0.4 X10*3/uL (1.2-4.9); Lymphocytes Percent Auto 6.4 % (20-40); Mean Corpuscular HGB Conc 33.3 g/dl (31.0-35.0); Mean Corpuscular Hemoglobin 32.2 pg (27.0-33.0); Mean Corpuscular Volume 96.5 fL (80.0-98.0); Mean Platelet Volume 10.5 fL (9.4-12.3); Monocytes Absolute Auto 0.3 X10*3/uL (0.1-1.2); Neutrophils Absolute Auto 5.4 x10*3/uL (2.0-8.3); Neutrophils Percent Auto 84.6 % (45-73); Platelet Count 99 X10*3/uL (160-400); Red Cell Distribution Width 14.6 % (11.0-16.0); White Blood Count 6.4 X10*3/uL (4.8-10.8)
[2024-12-13 06:48] LABS: Venous Blood Gas Refer to POC result
[2024-12-13 06:50] LABS: VBG Base Excess 7.2 mmol/L; VBG HCO3 29 mmol/L (22-26); VBG pCO2 32 mmHg; VBG pH 7.56 (7.32-7.43); VBG pO2 83 mmHg
[2024-12-13 07:05] LABS: Alanine Aminotransferase 123 U/L (0-31); Albumin Level 2.9 g/dL (3.5-5.0); Alkaline Phosphatase 112 U/L (39-117); Anion Gap 15 (12-20); Aspartate Amino Transferase 217 U/L (5-31); Bilirubin Total 1.9 mg/dL (0.0-1.0); Blood Urea Nitrogen 48 mg/dL (9-16); Carbon Dioxide 27 mmol/L (22-29); Chloride 113 mmol/L (96-108); Estimated Glomerular Filt Rate 43; Glucose Random 97 mg/dL (60-115); Magnesium 1.9 mg/dL (1.6-2.6); Potassium 3.5 mmol/L (3.3-5.1); Sodium 151 mmol/L (135-145); Total Protein 6.6 g/dL (6.5-8.0)
[2024-12-13] MEDS: hydrALAZINE HCl 20 MG/ML VIAL 10 MG IVPUSH (08:18)
[2024-12-13] MEDS: 0.9 % Sodium Chloride Flush 3 ML SYRINGE IVFLUSH ×2 (08:18→17:09)
[2024-12-13] MEDS: Famotidine/PF 20 MG/2 ML VIAL IVPUSH (08:20)
[2024-12-13] MEDS: Nystatin Powder 15 GM BOTTLE 1 APPL TOPICAL (08:21)
[2024-12-13] MEDS: dexmedeTOMIDine HCL/NS 400 MCG/100 ML PLAST..BAG 10.55 MCG IVCONT (08:49)
--- NOTE | 2024-12-13 10:21 | HE.PHANOTE ---
Re: Eva Renal function continues to fluctuate, but has been improving over last few days. Trough returned at 17. Pt is therapeutic, continue current dose of 750mg q24h, with predicted AUC 473, predicted trough 16.4. Next trough 12/14 @ 0900.
--- NOTE | 2024-12-13 10:32 | PM.CCPN ---
Subjective Subjective Date of Service: 12/13/24 Interval History: Extubated yesterday, on high-flow oxygen at 80% FiO2 and 50 L/min. Significant dyspnea, on Precedex drip and as needed fentanyl pushes. Critical Care Time (minutes): 35 Physical Exam Vital Signs: Vital Signs: Last Vital Signs Temp 98.1 F 12/13/24 08:00 Pulse 108 H 12/13/24 10:00 Resp 38 H 12/13/24 10:00 BP 152/78 H 12/13/24 10:00 Pulse Ox 91 L 12/13/24 10:00 O2 Del Method High Flow Nasal C annula 12/13/24 10:00 O2 Flow Rate 50 12/13/24 06:00 FiO2 80 12/13/24 10:00 BMI result Body Mass Index 29.9 General: Elderly lady isn't severe acute distress, she is ill appearing and tired appearing, very dyspneic sitting in the bed Nutritional Appearance: well nourished and overweight Eyes: appearance normal, both eyes and all related structures; Alignment and Position: alignment normal and position normal Neck: No lymphadenopathy, no thyromegaly Resp: bilateral air entry equal, bilateral wheeze heard Cardio: Regular rate, regular rhythm; Heart sounds: S1 normal heart sound present and S2 normal heart sound present GI: soft, nontender, no guarding, no hepatosplenomegaly : bladder normal to inspection, bladder normal to palpation, no renal angle tenderness Skin: no rashes or lesions noted and elasticity normal Neuro: Following some commands and moves all extremities Objective Data Labs 12/13/24 06:40 12/13/24 06:40 Labs: Laboratory Results - last 24 hr 12/12/24 12/13/24 12/13/24 15:03 04:19 06:40 WBC 6.4 RBC 2.30 L Hgb 7.4 L Hct 22.2 L MCV 96.5 MCH 32.2 MCHC 33.3 RDW 14.6 Plt Count 99 L MPV 10.5 Immature Gran % (Auto) 1.6 H Neut % (Auto) 84.6 H Lymph % (Auto) 6.4 L [place] % (Auto) 5.0 Eos % (Auto) 1.9 Baso % (Auto) 0.5 Lymph # (Auto) 0.4 L [place] # (Auto) 0.3 Eos # (Auto) 0.1 Baso # (Auto) 0.0 Abs Immat Gran (auto) 0.10 H Absolute Neuts (auto) 5.4 Absolute Nucleated RBC 0.000 Nucleated RBC % (auto) 0.0 VBG pH VBG pCO2 VBG pO2 VBG HCO3 VBG O2 Saturation VBG Base Excess Sodium 149 H 151 H Potassium 3.8 D 3.5 Chloride 110 H 113 H Carbon Dioxide 26 27 Anion Gap 17 15 BUN 54 H 48 H Creatinine 1.12 1.18 1.24 Estim Creat Clear Calc 53.0 50.3 48.0 Estimated GFR 49 46 43 Random Glucose 86 97 Calcium 9.9 9.0 D Phosphorus 5.0 H Magnesium 1.9 Total Bilirubin 1.4 H 1.9 H AST 261 H 217 H ALT 132 H 123 H Alkaline Phosphatase 126 H 112 Total Protein 6.7 6.6 Albumin 3.0 L 2.9 L Random Vancomycin 12/13/24 12/13/24 06:45 09:25 WBC RBC Hgb Hct MCV MCH MCHC RDW Plt Count MPV Immature Gran % (Auto) Neut % (Auto) Lymph % (Auto) [place] % (Auto) Eos % (Auto) Baso % (Auto) Lymph # (Auto) [place] # (Auto) Eos # (Auto) Baso # (Auto) Abs Immat Gran (auto) Absolute Neuts (auto) Absolute Nucleated RBC Nucleated RBC % (auto) VBG pH 7.56 H VBG pCO2 32 VBG pO2 83 VBG HCO3 29 H VBG O2 Saturation 97.0 VBG Base Excess 7.2 Sodium Potassium Chloride Carbon Dioxide Anion Gap BUN Creatinine Estim Creat Clear Calc Estimated GFR Random Glucose Calcium Phosphorus Magnesium Total Bilirubin AST ALT Alkaline Phosphatase Total Protein Albumin Random Vancomycin 17.0 Microbiology Microbiology Results: Microbiology 12/10/24 12:20 Trachea Gram Stain - Final 12/10/24 12:20 Trachea Sputum Culture - Final 11/24/24 15:47 Blood - Venous Blood Culture - Final No growth after 5 days. 11/24/24 15:42 Blood - Venous Blood Culture - Final No growth after 5 days. Progress Note: A&P Assessment and plan (1) At risk for malnutrition: Status: Acute (2) Thrombocytopenia: Status: Acute (3) COPD (chronic obstructive pulmonary disease): Status: Acute (4) Multifocal pneumonia: Status: Acute (5) COPD with acute exacerbation: Status: Acute (6) Pneumonia due to COVID-19 virus: Status: Acute (7) Acute encephalopathy: Status: Acute Plan Neuro: Acute encephalopathy possibly due to metabolic encephalopathy On Precedex drip for anxiolysis, and fentanyl pushes for dyspnea CT head did not show any acute intracranial pathology Close neurological status monitoring in the ICU every hour Cardiac: Cardiogenic Shock:resolved, not on pressor support Respiratory: Acute hypoxemic respiratory failure due to unspecified bilateral pneumonia Yesterday, not doing so well. She is on high-flow oxygen 80% FiO2 at 50 L/min; saturations are normal but she is very dyspneic. We will give her 60mg Q8h Solu-Medrol and 40 mg of Lasix and we will see if her dyspnea improves. Will also do bronchodilators nebulization as she is very wheezy. She might need re-intubation for work of breathing. repeat sputum cultures growing mixed luisana GI: Oral who has had since extubation due to high-risk for aspiration Renal: NATALIE improving, creatinine down to 1.24 this morning Has single kidney as her left kidney is atrophic, has multiple history of AKS Net fluid balance net even and creatinine improvement trend has stopped. Creatinine might improve with further volume replacement but her respiratory status might worsen. So giving her 40 mg of Lasix while watching her renal function closely. 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 She would need a [place] Musculoskeletal: Decubitus ulcer prevention protocol Lines: Peripheral Prophylaxis: Lovenox, pantoprazole Quality Stroke Does the patient have a stroke diagnosis?: No VTE Prior VTE?: No VTE Risk Level:: Medical - moderate - high VTE Device Contraindication: Treatment Not Indicated VTE Drug Contraindication: N/A - Med Ordered
[2024-12-13] MEDS: methylPREDNISolone Sod Succ 125 MG/2 ML VIAL 60 MG IVPUSH (10:48)
[2024-12-13] MEDS: Furosemide 40 MG/4 ML VIAL IVPUSH (10:48)
[2024-12-13] MEDS: Meropenem 1 GM VIAL IVPUSH (10:48)
[2024-12-13] MEDS: vancomycin HCL 750 MG in 0.9 % Sodium Chloride 250 ML 265 MG IV (10:49)
[2024-12-13] MEDS: Albuterol/Iprat 2.5/0.5MG 3 ML AMPUL.NEB INHALE (11:36)
--- NOTE | 2024-12-13 14:33 | HO.HCP ---
Health Care Proxy Invocation Health Care Proxy Declaration: I, Cruz Haines MD , on the date cited below, have determined that, ____Myrtle Hamm , lacks the capacity to make or communicate, informed health care decision. This determination is made in accordance with accepted standards of medical judgment and pursuant to [place] 201[place], the [facility] Care Proxy Law. The cause, nature, extent and probable duration of the patient's inapacity are described below: Cause: encephalopathy Nature: severe Extent:severe Probable Duration of Patient's Incapacity:unknown
[2024-12-13] MEDS: fentaNYL citrate/NS 1,000 MCG/100 ML PLAST..BAG 5 MCG IVCONT (15:00)
[2024-12-13] MEDS: Midazolam HCl 2 MG/2 ML VIAL IVPUSH ×2 (15:17→17:21)
[2024-12-13] MEDS: fentaNYL citrate/PF 100 MCG/2 ML VIAL 50 MCG IVPUSH ×3 (15:17→21:54)
--- NOTE | 2024-12-13 15:43 | PC.RT ---
Pt code status changed, family at bedside. HFNC to remain at this time per MD, svn held per MD post family meeting
[2024-12-13] MEDS: Scopolamine 1.5 MG PATCH.TD.3 TRANSDERMA (17:13)
--- NOTE | 2024-12-13 17:20 | PC.RT ---
HFNC removed per MD/family, 2 lpm n/c for comfort. Nursing aware.
--- NOTE | 2024-12-13 18:20 | PC.NURSE ---
Assumed care at 0700. Pt remains on HFNC and precedex drip. Pt tachypnic, abdominal breathing, increased respiratory effort. Fio2 increased by RT. HR in 120s, BP elevated. PRN hydralazine administered. PRN fentanyl administered. Pt restless, removing HFNC. Precedex drip increased. Pt?s WOB increased throughout shift. MD made aware. Family and MD discussed goals of care. Family decided to transition to comfort care. Per family and MD, pt to remain on HFNC until all family is gathered at which point pt may be transitioned to NC at 2-4L. Transition to NC occurred at? approx 1715; RT at bedside to assist. NEDS contacted at 1555. Pt declined for organ donation, possible tissue donation. NEDS to be contacted upon . Referral number: [id number]. Pt repositioned q2hr as tolerated. Fall/safety measures in place. See MAR and assessments for further details.
[2024-12-13] MEDS: dexmedeTOMIDine HCL/NS 400 MCG/100 ML PLAST..BAG 17.58 MCG IVCONT (19:45)
[2024-12-13] MEDS: fentaNYL citrate/NS 1,000 MCG/100 ML PLAST..BAG 20 MCG IVCONT (21:55)
[2024-12-14] VITALS (17 sets, daily range): PULSE 78–82; RESP 17–22; O2SAT 58–73
[2024-12-14] MEDS: 0.9 % Sodium Chloride Flush 3 ML SYRINGE IVFLUSH ×3 (00:13→15:41)
[2024-12-14] MEDS: dexmedeTOMIDine HCL/NS 400 MCG/100 ML PLAST..BAG 17.58 MCG IVCONT ×4 (00:16→16:42)
[2024-12-14] MEDS: fentaNYL citrate/NS 1,000 MCG/100 ML PLAST..BAG 20 MCG IVCONT ×3 (02:36→13:17)
--- NOTE | 2024-12-14 07:07 | PC.NURSE ---
Upon initial assessment at approximately 1900: patient [employer], family at bedside. Patient opens eyes to name, does not track speaker, does not follow commands, restless at times. Tachypneic RR 30s. On 2L NC for comfort. SpO2 60-70s. NSR on tele, HR 80-90s. Precedex gtt and Fentanyl gtt titrated and infusing per AUG. Purewick in place. PRN 50mcg IVP Fentanyl given at approx. 2200 per nonverbal pain scale with good effect. RR 18-20. SpO2 50-60s on 1L NC. NSR on tele, HR 70-80s. 0700- Report given to oncoming RN.
[2024-12-14] MEDS: Famotidine/PF 20 MG/2 ML VIAL IVPUSH (07:45)
--- NOTE | 2024-12-14 11:12 | P.PNCC_ITS ---
Subjective Subjective Date of Service: 12/14/24 Interval History: 69-year-old lady, former 40 pack-year smoker quit 2023, with underlying COPD, carotid artery stenosis status post endarterectomy, CKD, diastolic heart failure, stenosis, hypothyroidism admitted on 11/24/2024 with dyspnea and hypoxia secondary to COVID pneumonia with possible bacterial superinfection and L5/S1 osteomyelitis/diskitis being treated with vancomycin/meropenem for 6 weeks with hospital course significant for progressive hypoxia requiring maximum high-flow support and transferred to intensive care unit on 12/05/2024, and intubation on 12/06/2024. Extubated 12/12/2024, however patient with persistently increasing FiO2 requirements requiring consideration for re-intubation. At that time discussion held with patient healthcare proxy/family who decided to switch goals of care to palliation. Code status changed to comfort measures only. Patient remains comfortable on sedative drips. Critical Care Time (minutes): 0 Physical Exam 2 Vital Signs: Vital Signs: Last Vital Signs Temp 98.6 F 12/13/24 13:00 Pulse 79 12/14/24 11:00 Resp 17 12/14/24 11:00 BP 99/51 L 12/13/24 21:00 Pulse Ox 70 L 12/14/24 11:00 O2 Del Method Nasal Cannula 12/14/24 11:00 O2 Flow Rate 1 12/14/24 11:00 FiO2 55 12/13/24 16:57 BMI result Body Mass Index 29.9 Comfortable on sedative drips. Objective Data Labs 12/13/24 06:40 12/13/24 06:40 Microbiology Microbiology Results: Microbiology 12/10/24 12:20 Trachea Gram Stain - Final 12/10/24 12:20 Trachea Sputum Culture - Final 11/24/24 15:47 Blood - Venous Blood Culture - Final No growth after 5 days. 11/24/24 15:42 Blood - Venous Blood Culture - Final No growth after 5 days. Progress Note: A&P Assessment and plan (1) Comfort measures only status: Status: Acute Assessment and Plan: Patient remains comfortable on continuous and as needed sedatives. Quality Stroke Does the patient have a stroke diagnosis?: No VTE Prior VTE?: No VTE Risk Level:: Medical - moderate - high VTE Device Contraindication: Treatment Not Indicated VTE Drug Contraindication: N/A - Med Ordered
--- NOTE | 2024-12-14 11:13 | MHC.CLN ---
F/U PT EXTUBATED 12/12 PT TRANSITIONED TO ROOTER OPERATOR PER FAMILY ON 12/13 WILL CHANGE DIET ORDER TO NPO WILL FOLLOW WITH TEAM AND PROVIDE SUPPORT NEEDED
[2024-12-14] MEDS: methylPREDNISolone Sod Succ 125 MG/2 ML VIAL 60 MG IVPUSH (11:36)
[2024-12-14] MEDS: fentaNYL citrate/PF 100 MCG/2 ML VIAL 50 MCG IVPUSH (11:49)
--- NOTE | 2024-12-14 12:45 | MHC.CM.PN ---
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
--- NOTE | 2024-12-14 18:35 | PC.NURSE ---
Assumed care of patient 0700. Patient code status comfort measures only. Gentle bath provided 08:00 with glass installer technician. Purewick in place and functioning. Urine output 300 ml this shift. Approx 1800 Pt became bradycardic, daughter Leila at bedside. Pt with friends and family. MD Dr. Stone notified of Asystole on tele 18:07
--- NOTE | 2024-12-14 20:26 | PM.DDS ---
Discharge Sum: Prov Provider Primary care physician: Blakn Rodriguez, [facility] Admitting clinician: Karla Pleitez Attending physician on admission: Germán Edward Consults: 11/26/24 13:21 Consult to Wound Care Routine Reason for consultation: wound to coccyx 11/28/24 07:33 Consult to Infectious Diseases Routine Consulting Provider: [facility] Reason for consultation: osteomylitis of the spine Has provider been notified: No 11/30/24 08:57 Consult to Hematology / Oncology Routine Consulting Provider: [facility] Reason for consultation: pancytopenia Has provider been notified: No 12/01/24 16:13 Consult to Nephrology Routine Consulting Provider: [facility] Reason for consultation: CKD3, needs PICC for 6 wk vancomycin + ertapenem, IR request 12/02/24 08:05 Consult to Pulmonology Routine Consulting Provider: [facility] Reason for consultation: pneumonia, highflow 12/03/24 08:16 Consult to Gastroenterology Routine Consulting Provider: [facility] Reason for consultation: LFTs better then worse Pronouncing clinician: Riri Gaines Discharge Sum: Diag PCOD Cause of : Respiratory failure with hypoxia Contributing Factors (1) Comfort measures only status: (2) Pneumonia due to COVID-19 virus: Discharge Sum: Summary Date and Time Date of admission: 11/24/24 20:45 Date of : 12/14/24 Time of : 18:07 Summary Details: Ms. Hamm is a 69-year-old lady, former 40 pack-year smoker quit 2023, with underlying COPD, carotid artery stenosis status post endarterectomy, CKD, diastolic heart failure, stenosis, hypothyroidism admitted on 11/24/2024 with dyspnea and hypoxia secondary to COVID pneumonia with possible bacterial superinfection and L5/S1 osteomyelitis/diskitis being treated with vancomycin/meropenem for 6 weeks with hospital course significant for progressive hypoxia requiring maximum high-flow support and transferred to intensive care unit on 12/05/2024, and intubation on 12/06/2024.? Extubated 12/12/2024, however patient with persistently increasing FiO2 requirements requiring consideration for re-intubation.? At that time discussion was held with patient?s healthcare proxy/family who decided to switch goals of care to palliation. Code status changed to comfort measures only. ?In the evening 12/14/2024, the patient became pulseless showing asystole on the monitor.? Absent peripheral pulses.? Pupils fixed and dilated.? Absent heart sounds and no spontaneous breathing. Time of 180. She was surrounded by family at the bedside. The patient is not a medical exam candidate. Organ donation was notified by nursing. Attending physician notified. Additional Data Confirmation of as documented by pronouncing clinician: no pulse, no respirations, no heart sounds and pupils fixed and dilated Family: at bedside Attending/PCP notified?: Yes Attending physician: Clinton Stone MD Was code activated?: No Autopsy requested?: No life claims examiner notified?: No Organ bank notified?: Yes Advance directives: Yes Hospice patient?: No
== END 2024-12-14 20:06 | disposition expired | DRG 870 ==
LOC: HO.ED 19:33 → HO.EDOVER 20:57 → HO.IMC 11-25 09:33 → HO.ICU 12-05 18:19
PROVIDERS: Family Medicine; Hospitalist; Internal Medicine; Internal Medicine Critical Care Medicine; Physician Assistant Medical; Registered Nurse Community Health; Admitting Provider Physician Assistant; Emergency Provider Emergency Medicine Emergency Medical Services; PCP Nurse Practitioner Family; Visit Provider Internal Medicine Pulmonary Disease
DX: A41.9 Sepsis, unspecified organism (principal); G93.41 Metabolic encephalopathy; J12.82 Pneumonia due to coronavirus disease 2019; J96.01 Acute respiratory failure with hypoxia; U07.1 COVID-19; K83.1 Obstruction of bile duct; J44.0 Chronic obstructive pulmonary disease with (acute) lower respiratory infection; J44.1 Chronic obstructive pulmonary disease with (acute) exacerbation; I13.0 Hypertensive heart and chronic kidney disease with heart failure and stage 1 through stage 4 chronic kidney disease, or unspecified chronic kidney disease; E87.21 Acute metabolic acidosis; D61.818 Other pancytopenia; I50.32 Chronic diastolic (congestive) heart failure; M46.27 Osteomyelitis of vertebra, lumbosacral region; N17.9 Acute kidney failure, unspecified; N18.30 Chronic kidney disease, stage 3 unspecified; D69.59 Other secondary thrombocytopenia; I73.9 Peripheral vascular disease, unspecified; T36.1X5A Adverse effect of cephalosporins and other beta-lactam antibiotics, initial encounter; F39 Unspecified mood [affective] disorder; N26.1 Atrophy of kidney (terminal); I25.10 Atherosclerotic heart disease of native coronary artery without angina pectoris; E87.6 Hypokalemia; R57.0 Cardiogenic shock; M46.47 Discitis, unspecified, lumbosacral region; Z51.5 Encounter for palliative care; K76.0 Fatty (change of) liver, not elsewhere classified; E03.9 Hypothyroidism, unspecified; Z87.891 Personal history of nicotine dependence; B96.89 Other specified bacterial agents as the cause of diseases classified elsewhere; K74.69 Other cirrhosis of liver; Z79.02 Long term (current) use of antithrombotics/antiplatelets; Z79.82 Long term (current) use of aspirin; Z79.890 Hormone replacement therapy; Z79.899 Other long term (current) drug therapy
CPT/HCPCS: 0241U; 36415; 36600; 70450; 71045; 71275; 72125; 72158; 74177; 76705; 78226; 80048; 80051; 80053; 80076; 80202; 81001; 82248; 82565; 82803; 83010; 83605; 83615; 83735; 83880; 84100; 84145; 84484; 85007; 85025; 85027; 85379; 85384; 85610; 85652; 85730; 86140; 86704; 86706; 86803; 86850; 86900; 86901; 86923; 87040; 87070; 87205; 87340; 87389; 87635; 87640; 87641; 92526; 92610; 93005; 93306; 93970; 94002; 94003; 94640; 94660; 94799; 99212; 99285; A9537; A9585; J0360; J0692; J1171; J1308; J1650; J1920; J1938; J2185; J2250; J2270; J2359; J2405; J2704; J2919; J3010; J3370; J3371; J3480; J7120; P9016; P9047; Q9957; Q9967

== ENCOUNTER → 2024-11-24 15:38 | Outpatient (BNV) | payer MEDICARE, SELFPAY | PROVIDERS: Emergency Provider Emergency Medicine Emergency Medical Services; PCP Nurse Practitioner Family; Visit Provider Radiology Diagnostic Radiology | DX: K80.20 Calculus of gallbladder without cholecystitis without obstruction (principal); J18.8 Other pneumonia, unspecified organism; I25.10 Atherosclerotic heart disease of native coronary artery without angina pectoris; M47.812 Spondylosis without myelopathy or radiculopathy, cervical region; S09.90XA Unspecified injury of head, initial encounter; R06.02 Shortness of breath; M51.379 Other intervertebral disc degeneration, lumbosacral region without mention of lumbar back pain or lower extremity pain; M79.9 Soft tissue disorder, unspecified; W19.XXXA Unspecified fall, initial encounter | CPT/HCPCS: 70450; 71275; 72125; 74177 ==

== ENCOUNTER → 2024-11-24 15:58 | Outpatient (BNV) | payer MEDICARE, SELFPAY | PROVIDERS: Admitting Provider Physician Assistant; Emergency Provider Emergency Medicine Emergency Medical Services; PCP Nurse Practitioner Family; Visit Provider Internal Medicine | DX: R06.00 Dyspnea, unspecified (principal) | CPT/HCPCS: 93010 ==

== ENCOUNTER 2024-11-24 20:45 | Outpatient (BNV) | payer MEDICARE, SELFPAY | END 2024-12-05 20:15 | PROVIDERS: Admitting Provider Physician Assistant; Emergency Provider Emergency Medicine Emergency Medical Services; PCP Nurse Practitioner Family; Visit Provider Radiology Neuroradiology | DX: R91.8 Other nonspecific abnormal finding of lung field (principal) | CPT/HCPCS: 71045; 93970 ==

== ENCOUNTER 2024-11-24 20:45 | Outpatient (BNV) | payer MEDICARE, SELFPAY | END 2024-11-29 06:27 | PROVIDERS: Admitting Provider Physician Assistant; Emergency Provider Emergency Medicine Emergency Medical Services; PCP Nurse Practitioner Family; Visit Provider Radiology Vascular & Interventional Radiology | DX: J18.9 Pneumonia, unspecified organism (principal) | CPT/HCPCS: 71045 ==

== ENCOUNTER 2024-11-24 20:45 | Outpatient (BNV) | payer MEDICARE, SELFPAY | END 2024-12-02 07:00 | PROVIDERS: Admitting Provider Physician Assistant; Emergency Provider Emergency Medicine Emergency Medical Services; PCP Nurse Practitioner Family; Visit Provider Internal Medicine Cardiovascular Disease | DX: I34.81 Nonrheumatic mitral (valve) annulus calcification (principal) | CPT/HCPCS: 93306 ==

== ENCOUNTER 2024-11-24 20:45 | Outpatient (BNV) | payer MEDICARE, SELFPAY | END 2024-12-10 16:14 | PROVIDERS: Admitting Provider Physician Assistant; Emergency Provider Emergency Medicine Emergency Medical Services; PCP Nurse Practitioner Family; Visit Provider Radiology Diagnostic Radiology | DX: R41.82 Altered mental status, unspecified (principal) | CPT/HCPCS: 70450 ==

== ENCOUNTER 2024-11-24 20:45 | Outpatient (BNV) | payer MEDICARE, SELFPAY | END 2024-11-26 17:01 | PROVIDERS: Admitting Provider Physician Assistant; Emergency Provider Emergency Medicine Emergency Medical Services; PCP Nurse Practitioner Family; Visit Provider Radiology Vascular & Interventional Radiology | DX: M51.369 Other intervertebral disc degeneration, lumbar region without mention of lumbar back pain or lower extremity pain (principal) | CPT/HCPCS: 72158 ==

== ENCOUNTER 2024-11-24 20:45 | Outpatient (BNV) | payer MEDICARE, SELFPAY | END 2024-12-07 09:25 | PROVIDERS: Admitting Provider Physician Assistant; Emergency Provider Emergency Medicine Emergency Medical Services; PCP Nurse Practitioner Family; Visit Provider Radiology Diagnostic Radiology | DX: Z99.11 Dependence on respirator [ventilator] status (principal) | CPT/HCPCS: 71045 ==

== ENCOUNTER 2024-11-24 20:45 | Outpatient (BNV) | payer MEDICARE, SELFPAY | END 2024-11-25 15:30 | PROVIDERS: Admitting Provider Physician Assistant; Emergency Provider Emergency Medicine Emergency Medical Services; PCP Nurse Practitioner Family; Visit Provider Radiology Diagnostic Radiology | DX: K80.20 Calculus of gallbladder without cholecystitis without obstruction (principal) | CPT/HCPCS: 78226 ==

== ENCOUNTER 2024-11-24 20:45 | Outpatient (BNV) | payer MEDICARE, SELFPAY | END 2024-12-01 17:03 | PROVIDERS: Admitting Provider Physician Assistant; Emergency Provider Emergency Medicine Emergency Medical Services; PCP Nurse Practitioner Family; Visit Provider Radiology Diagnostic Radiology | DX: J18.9 Pneumonia, unspecified organism (principal) | CPT/HCPCS: 71045 ==

== ENCOUNTER 2024-11-24 20:45 | Outpatient (BNV) | payer MEDICARE, SELFPAY | END 2024-12-06 10:08 | PROVIDERS: Admitting Provider Physician Assistant; Emergency Provider Emergency Medicine Emergency Medical Services; PCP Nurse Practitioner Family; Visit Provider Radiology Diagnostic Radiology | DX: J18.9 Pneumonia, unspecified organism (principal); Z93.0 Tracheostomy status | CPT/HCPCS: 71045 ==

== ENCOUNTER 2024-11-24 20:45 | Outpatient (BNV) | payer MEDICARE, SELFPAY | END 2024-12-03 15:23 | PROVIDERS: Admitting Provider Physician Assistant; Emergency Provider Emergency Medicine Emergency Medical Services; PCP Nurse Practitioner Family; Visit Provider Radiology Diagnostic Radiology | DX: K80.20 Calculus of gallbladder without cholecystitis without obstruction (principal); K76.89 Other specified diseases of liver | CPT/HCPCS: 76705 ==

== ENCOUNTER → 2024-11-24 20:45 | Outpatient (BNV) | payer MEDICARE, SELFPAY | PROVIDERS: Admitting Provider Physician Assistant; Emergency Provider Emergency Medicine Emergency Medical Services; PCP Nurse Practitioner Family; Visit Provider Registered Nurse Community Health | DX: J96.01 Acute respiratory failure with hypoxia (principal); J18.9 Pneumonia, unspecified organism; U07.1 COVID-19 | CPT/HCPCS: 99291 ==

== ENCOUNTER → 2024-11-24 20:45 | Outpatient (BNV) | payer MEDICARE, SELFPAY | PROVIDERS: Admitting Provider Physician Assistant; Emergency Provider Emergency Medicine Emergency Medical Services; PCP Nurse Practitioner Family; Visit Provider Internal Medicine | DX: M86.9 Osteomyelitis, unspecified (principal) | CPT/HCPCS: 99232 ==

== ENCOUNTER → 2024-11-24 20:45 | Outpatient (BNV) | payer MEDICARE, SELFPAY | PROVIDERS: Admitting Provider Physician Assistant; Emergency Provider Emergency Medicine Emergency Medical Services; PCP Nurse Practitioner Family; Visit Provider Internal Medicine | DX: D69.6 Thrombocytopenia, unspecified (principal) | CPT/HCPCS: 99232 ==

== ENCOUNTER → 2024-11-24 20:45 | Outpatient (BNV) | payer MEDICARE, SELFPAY | PROVIDERS: Admitting Provider Physician Assistant; Emergency Provider Emergency Medicine Emergency Medical Services; PCP Nurse Practitioner Family; Visit Provider Nurse Practitioner Family | DX: N18.32 Chronic kidney disease, stage 3b (principal); N26.1 Atrophy of kidney (terminal) | CPT/HCPCS: 99221 ==

== ENCOUNTER → 2024-11-24 20:45 | Outpatient (BNV) | payer MEDICARE, SELFPAY | PROVIDERS: Admitting Provider Physician Assistant; Emergency Provider Emergency Medicine Emergency Medical Services; PCP Nurse Practitioner Family; Visit Provider Internal Medicine | DX: J18.9 Pneumonia, unspecified organism (principal); J44.1 Chronic obstructive pulmonary disease with (acute) exacerbation; R05.9 Cough, unspecified | CPT/HCPCS: 99223; 99232; 99233 ==

== ENCOUNTER → 2024-11-24 20:45 | Outpatient (BNV) | payer MEDICARE, SELFPAY | PROVIDERS: Admitting Provider Physician Assistant; Emergency Provider Emergency Medicine Emergency Medical Services; PCP Nurse Practitioner Family; Visit Provider Internal Medicine Pulmonary Disease | DX: J43.1 Panlobular emphysema (principal); J96.01 Acute respiratory failure with hypoxia; I25.10 Atherosclerotic heart disease of native coronary artery without angina pectoris; I73.9 Peripheral vascular disease, unspecified; U07.1 COVID-19; J12.82 Pneumonia due to coronavirus disease 2019 | CPT/HCPCS: 31500; 99291 ==